=== PATIENT | female | born 1980 | race Caucasian/White ===

== ENCOUNTER → 2019-08-31 11:05 | Outpatient (BNVA) | payer MEDICAID, SELFPAY | PROVIDERS: Visit Provider Nurse Practitioner | DX: E05.90 Thyrotoxicosis, unspecified without thyrotoxic crisis or storm (principal); I10 Essential (primary) hypertension; R25.2 Cramp and spasm | CPT/HCPCS: 80053; 84443; 85007; 85027 ==

== ENCOUNTER → 2019-09-06 11:00 | Outpatient (BNVA) | payer MEDICAID, SELFPAY | PROVIDERS: Visit Provider Nurse Practitioner | DX: R74.8 Abnormal levels of other serum enzymes (principal); R73.9 Hyperglycemia, unspecified; F41.8 Other specified anxiety disorders | CPT/HCPCS: 80074; 80076; 83036; 87522 ==

== ENCOUNTER → 2019-11-25 21:42 | Outpatient (BNVA) | payer MEDICAID, SELFPAY | PROVIDERS: Visit Provider Nurse Practitioner Family | DX: E11.9 Type 2 diabetes mellitus without complications (principal); I10 Essential (primary) hypertension; J22 Unspecified acute lower respiratory infection; F41.8 Other specified anxiety disorders | CPT/HCPCS: 36416; 82962 ==

== ENCOUNTER → 2019-11-30 11:25 | Outpatient (BNVA) | payer MEDICAID, SELFPAY | PROVIDERS: Visit Provider Nurse Practitioner Family | DX: E03.9 Hypothyroidism, unspecified (principal); F41.8 Other specified anxiety disorders | CPT/HCPCS: 84443 ==

== ENCOUNTER 2020-02-25 14:42 | Inpatient (IN) | payer MEDICAID, SELFPAY ==
[2020-02-25 14:48] VITALS: BP 194/100; PULSE 99; RESP 18; TEMP 36.9; O2SAT 97; BMI 35.4
--- NOTE | 2020-02-25 15:08 | W.ED.PSYCH ---
HPI - Psych General: Chief Complaint: Psychiatric Symptoms Stated Complaint: mhe Time Seen by Provider: 02/25/20 15:08 Source: patient Mode of arrival: ambulatory Limitations: no limitations History of Present Illness: HPI Narrative: Carol is a nice 39-year-old female who comes in complaining that she feels suicidal. She does not have a plan at this time. She states she has an alcohol problem as well and she had to help with that. She states she is tried her to kill herself before. She denies any physical complaints at this time. Review of Systems Const: Denies: fever(s), chills, body aches, fatigue, malaise or diaphoresis Eyes: Denies: change in vision, blurry vision, blind spots, photophobia, eye discharge or eye redness ENMT: Denies: throat pain, odynophagia, hoarseness, swelling of lips/tongue, oral sores, ear or mastoid pain, ear discharge, change in hearing or nasal discharge Card: Denies: chest pain, palpitations, irregular heart rhythm, edema, lightheadedness, syncope, pre-syncope, dyspnea on exertion or orthopnea Resp: Denies: dyspnea, productive cough, non-productive cough, wheezing, hemoptysis or chest congestion GI: Denies: abdominal pain, nausea, vomiting, hematemesis, coffee ground emesis, heartburn, diarrhea, constipation, GI cramping, hematochezia or melena : Denies: flank pain, dysuria, urinary frequency, urinary urgency or hematuria Musc: Denies: neck pain, back pain, extremity pain, extremity swelling, joint pain, joint swelling, joint redness, joint warmth or joint stiffness Skin/Breast: Denies: rash, pruritus, erythema, skin tenderness or jaundice Neuro: Denies: headache(s), numbness in extremities, weakness in extremities, sensory changes, lack of coordination, difficulty walking, dizziness, vertigo, confusion, Slurred speech present or seizure-like activity Patricio/Lymph: Denies: easy bruising, easy bleeding, petechiae, purpura or enlarged lymph nodes All/Imm: Denies: urticaria, throat swelling, tongue swelling, facial swelling or acute wheezing PFS ED PFSH: Medical History Abdominal pain Anxiety with depression Congestive heart failure Diabetes mellitus, type II FH: breast cancer in first degree relative Hypertension Hypothyroid Vitamin D deficiency Surgical History History of Social History Smoking and tobacco status: current every day smoker Second hand smoke exposure: No Smoking risk assessment/counseling performed?: No Alcohol intake: never Desire information about alcohol rehabilitation?: No Counseling given: No Desire information about substance/drug rehabilitation?: No Counseling given: No Physical Exam Const: COMMON NORMALS: no acute distress, patient oriented x3, no limitations, healthy appearing and well nourished GENERAL APPEARANCE: cooperative, well kempt and well developed HENMT: COMMON NORMALS: normocephalic, atraumatic, external ears normal, EAC's normal and Normal external nose present HEAD & SCALP: normal to inspection, normocephalic and atraumatic FACE & SINUS: normal facial exam and face symmetric NOSE: Normal external nose present and Normal nares present EXTERNAL EAR: Yes external ears normal EXTERNAL AUDITORY CANAL: EAC's normal MOUTH: Normal oral and palatal mucosa present, lip normal and tongue normal Eye: COMMON NORMALS: Equal, round and reactive pupils present and conjunctivae normal GENERAL EYE: appearance normal, both eyes and all related structures ALIGNMENT: Yes alignment normal PERIORBITAL: periorbital findings normal EYELID: eyelids normal CONJUNCTIVA: Yes conjunctivae normal SCLERA: sclerae normal PUPIL: Yes Equal, round and reactive pupils present Neck/C-Spine: COMMON NORMALS: full ROM, no lymphadenopathy, supple, no meningeal signs and no JVD GENERAL: Yes normal visual inspection and Yes trachea midline Chest: COMMONS NORMALS: normal inspection of the chest and normal palpation of entire chest wall Resp: COMMON NORMALS: normal respiratory effort, No retractions and No use of accessory muscles EFFORT & INSPECTION: Yes able to speak in complete sentences and Yes symmetric chest movement AUSCULTATION: no crackles, no rales, no rhonchi and no wheezes Cardio: COMMON NORMALS: no JVD, regular rate, regular rhythm, S1 normal heart sound present and S2 normal heart sound present RATE: regular rate RHYTHM: regular rhythm HEART SOUNDS: S1 normal heart sound present, S2 normal heart sound present, no click, no gallops, no murmurs, no rubs and abnormal split S2 GI: COMMON NORMALS: Soft to palpation and No hepatosplenomegaly present PALPATION: Yes Soft to palpation, No Tenderness to palpation present (GI), No Guarding due to palpation present (GI), No Rigid due to palpation, Yes No hepatosplenomegaly present, No Hernia present, No Palpable mass present and No Pulsatile mass present : COMMON NORMALS: Yes no CVA tenderness BLADDER/KIDNEY EXAM: Yes no CVA tenderness EXTERNAL FEMALE EXAM: No Hernia present Back/Pelvis: COMMON NORMALS: no CVA tenderness, thoracic and lumbar spine normal to inspection, no thoracic nor lumbar tenderness and thoraco-lumbar ROM normal Extremity: COMMON NORMALS: normal to inspection, full ROM, capillary refill normal, no joint enlargement, no clubbing, cyanosis or edema and no calf tenderness Neuro: COMMON NORMALS: patient oriented x3, CN's II-XII intact bilaterally, moves all extremities, no focal motor deficits and no sensory deficits noted MENINGEAL SIGNS: Yes no meningeal signs SPEECH: speech normal Psych: COMMON NORMALS: mental status grossly normal, Normal thought process present, cooperative, normal affect, speech normal and activity/motor behavior normal APPEARANCE: Yes well kempt SPEECH: Yes normal speech THOUGHT PROCESS: Normal thought process present Skin: COMMON NORMALS: no rashes or lesions noted, turgor normal, no jaundice, no petechiae and no mottling GENERAL SKIN EXAM: no rashes or lesions noted and turgor normal MDM - Psych MDM Narrative: Medical decision making narrative: 2009 -the case is again reviewed with Dr. Yo and had previously been reviewed with him. He agrees to accept the patient to the neuropsychiatric unit. The patient's potassium was low and a repeat BMP was drawn but only a short time after she received the p.o. potassium. I believe it likely has not had a chance to work but she is receiving 20 IV milliequivalents of IV potassium and I will give her another 20 mEq p.o. before she goes to the neuropsychiatric unit. Her EKG shows no signs of long QT syndrome. I reviewed all this including the change in potassium with Dr. Yo he is agreeable to have her down in the neuropsychiatric unit and they will recheck a potassium in the morning. Patient is currently stable, she is eating and drinking with no signs of withdrawals or distress. Lab Data: Attestation: I reviewed the patient's lab results. Labs: Lab Results 02/25/20 02/25/20 02/25/20 Range/Units 15:28 15:28 15:28 WBC 6.7 (4.0-10.0) 10^3/ uL RBC 4.48 (4.1-5.3) 10^6/u L Hgb 11.2 L (11.5-15.3) g/dL Hct 37.4 (37.0-47.0) % MCV 83.5 (81-99) fL MCH 25.0 L (28.0-34.0) pg MCHC 29.9 L (30.0-36.0) g/dL RDW 19.7 H (12.1-15.1) % Plt Count 115 L (130-400) 10^3/c mm MPV 8.9 (7.4-10.4) fL Neut % (Auto) 45.7 % Lymph % (Auto) 43.5 % Stewart % (Auto) 9.6 % Eos % (Auto) 0.6 % Baso % (Auto) 0.3 % Neut # (Auto) 3.04 (1.8-7.7) 10^3/u L Lymph # (Auto) 2.9 (0.8-4.8) 10^3/u L Stewart # (Auto) 0.6 (0.2-0.9) 10^3/u L Eos # (Auto) 0.0 (0.0-0.8) 10^3/u L Baso # (Auto) 0.0 (0.0-0.1) 10^3/u L Nucleated RBC % (a uto) 0 % Nucleated RBCs # 0.0 /100WBC Sodium 139 (136-145) mmol/L Potassium 2.6 L* (3.5-5.1) mmol/L Chloride 103 (98-107) mmol/L Carbon Dioxide 18 L (22-29) mmol/L Anion Gap 20.6 H (5-19) BUN 5 L (6-20) mg/dL Creatinine 0.8 (0.5-0.9) mg/dL GFR Calculation 79.9 L (90-130) mL/min Glucose 134 H (65-115) mg/dL Calculated Osmolal ity 286 (285-295) mOsm/k g Calcium 9.0 (8.5-10.5) mg/dL Magnesium 1.9 (1.7-2.3) mg/dL Total Bilirubin 1.1 (0.15-1.2) mg/dL AST 165 H (0-32) U/L ALT 53 H (0-33) U/L Alkaline Phosphata se 156 H (35-105) IU/L Total Protein 9.2 H (6.6-8.7) g/dL Albumin 4.3 (3.5-5.2) g/dL Globulin 4.9 H (1.3-4.6) g/dL HCG, Qual (Negative) Salicylates (3-10) mg/dL Acetaminophen < 5.0 L (10-30) ug/mL Ethyl Alcohol 271 H (0-10) mg/dL 02/25/20 02/25/20 02/25/20 Range/Units 15:28 16:47 18:43 WBC (4.0-10.0) 10^3/ uL RBC (4.1-5.3) 10^6/u L Hgb (11.5-15.3) g/dL Hct (37.0-47.0) % MCV (81-99) fL MCH (28.0-34.0) pg MCHC (30.0-36.0) g/dL RDW (12.1-15.1) % Plt Count (130-400) 10^3/c mm MPV (7.4-10.4) fL Neut % (Auto) % Lymph % (Auto) % Stewart % (Auto) % Eos % (Auto) % Baso % (Auto) % Neut # (Auto) (1.8-7.7) 10^3/u L Lymph # (Auto) (0.8-4.8) 10^3/u L Stewart # (Auto) (0.2-0.9) 10^3/u L Eos # (Auto) (0.0-0.8) 10^3/u L Baso # (Auto) (0.0-0.1) 10^3/u L Nucleated RBC % (a uto) % Nucleated RBCs # /100WBC Sodium 139 (136-145) mmol/L Potassium 2.9 L (3.5-5.1) mmol/L Chloride 104 (98-107) mmol/L Carbon Dioxide 18 L (22-29) mmol/L Anion Gap 19.9 H (5-19) BUN 6 (6-20) mg/dL Creatinine 0.7 (0.5-0.9) mg/dL GFR Calculation 93.2 (90-130) mL/min Glucose 121 H (65-115) mg/dL Calculated Osmolal ity 285 (285-295) mOsm/k g Calcium 8.4 L (8.5-10.5) mg/dL Magnesium (1.7-2.3) mg/dL Total Bilirubin (0.15-1.2) mg/dL AST (0-32) U/L ALT (0-33) U/L Alkaline Phosphata se (35-105) IU/L Total Protein (6.6-8.7) g/dL Albumin (3.5-5.2) g/dL Globulin (1.3-4.6) g/dL HCG, Qual Negative (Negative) Salicylates 0.8 L (3-10) mg/dL Acetaminophen (10-30) ug/mL Ethyl Alcohol (0-10) mg/dL EKG Data^: EKG 1: Attestation: I personally reviewed and interpreted this EKG as follows: EKG interpretation date: 02/25/20 EKG interpretation time: 18:08 Interpretation: Normal sinus rhythm at 86 beats a minute, no acute ST-T wave changes. Discharge Plan Discharge Patient Disposition: Admitted As Inpatient Clinical Impression: Suicidal ideation, Anxiety with depression, Acute hypokalemia Condition: Stable Prescriptions: No Action (DME) blood-glucose meter Kit See Rx Instructions .ROUTE .MEDSUPPLY Qty: 1 RF: 5 buprenorphine-naloxone 8-2 mg film 1 film sublingual TID RF: 0 propranolol 40 mg tablet 40 mg PO BID RF: 0 Linzess 145 mcg capsule 145 mcg PO DAILY Qty: 30 RF: 0 alprazolam 0.5 mg tablet 0.5 mg PO BID PRN (Reason: anxiety) 30 Days Qty: 60 RF: 0 metformin 500 mg tablet 500 mg PO BID Qty: 60 RF: 0 levothyroxine 100 mcg capsule 100 mcg PO DAILY 30 Days Qty: 30 RF: 2 aspirin 325 mg Tablet 325 mg PO DAILY RF: 0 fluoxetine 40 mg capsule 40 mg PO DAILY RF: 0 Requip 0.25 mg tablet 0.25 mg PO DAILY RF: 0 furosemide 20 mg tablet 20 mg PO QAM RF: 0 ProAir HFA 90 mcg/actuation HFA aerosol inhaler 1 - 2 inh INHALATION Q6H PRN (Reason: Shortness Of Breath) RF: 0 Januvia 100 mg tablet 100 mg PO DAILY RF: 0 Referrals: Chaparro,MADAN, ASSOCIATE SCHOOL PSYCHOLOGIST [Primary Care Provider] - Coding Level of Care Code ED Gas Burner Operator for Lorri Chandler
[2020-02-25 15:34] LABS: Basophils % 0.3 %; Eosinophils % 0.6 %; Hematocrit 37.4 % (37.0-47.0); Hemoglobin 11.2 g/dL (11.5-15.3); Lymphocytes # 2.9 10^3/uL (0.8-4.8); Lymphocytes % 43.5 %; Mean Corpuscular HGB Conc 29.9 g/dL (30.0-36.0); Mean Corpuscular Volume 83.5 fL (81-99); Mean Platelet Volume 8.9 fL (7.4-10.4); Monocytes # 0.6 10^3/uL (0.2-0.9); Monocytes % 9.6 %; Neutrophils # 3.04 10^3/uL (1.8-7.7); Neutrophils % 45.7 %; Nucleated Red Blood Cells % 0 %; Platelet Count 115 10^3/cmm (130-400); Red Blood Count 4.48 10^6/uL (4.1-5.3); Red Cell Distribution Width 19.7 % (12.1-15.1); White Blood Count 6.7 10^3/uL (4.0-10.0)
[2020-02-25 16:05] LABS: Alanine Aminotransferase 53 U/L (0-33); Albumin Level 4.3 g/dL (3.5-5.2); Alcohol Level 271 mg/dL (0-10); Alkaline Phosphatase 156 IU/L (35-105); Anion Gap 20.6 (5-19); Aspartate Amino Transferase 165 U/L (0-32); Blood Urea Nitrogen 5 mg/dL (6-20); Carbon Dioxide 18 mmol/L (22-29); Chloride 103 mmol/L (98-107); Globulin 4.9 g/dL (1.3-4.6); Glomerular Filtration Rate 79.9 mL/min (90-130); Glucose 134 mg/dL (65-115); Osmolality Calculated 286 mOsm/kg (285-295); Sodium 139 mmol/L (136-145); Total Bilirubin 1.1 mg/dL (0.15-1.2); Total Protein 9.2 g/dL (6.6-8.7)
[2020-02-25 16:08] LABS: Acetaminophen < 5.0 ug/mL (10-30); Potassium 2.6 mmol/L (3.5-5.1)
[2020-02-25 16:52] LABS: Magnesium 1.9 mg/dL (1.7-2.3)
[2020-02-25 16:57] LABS: HCG Qualitative Urine. Negative (Negative)
[2020-02-25 17:07] LABS: Salicylate 0.8 mg/dL (3-10)
[2020-02-25] MEDS: folic acid 1 MG, multivitamin inj 10 ML, thiamine 100 MG in sodium chloride 0.9% 1,000 ML 252.8 MG IV (18:00)
[2020-02-25] MEDS: potassium chloride ER 10 mEq Tablet 40 MEQ PO (18:07)
[2020-02-25 19:15] LABS: Anion Gap 19.9 (5-19); Blood Urea Nitrogen 6 mg/dL (6-20); Calcium 8.4 mg/dL (8.5-10.5); Carbon Dioxide 18 mmol/L (22-29); Chloride 104 mmol/L (98-107); Glomerular Filtration Rate 93.2 mL/min (90-130); Glucose 121 mg/dL (65-115); Osmolality Calculated 285 mOsm/kg (285-295); Sodium 139 mmol/L (136-145)
[2020-02-25 19:23] LABS: Potassium 2.9 mmol/L (3.5-5.1)
[2020-02-25] MEDS: ondansetron 2 mg/ML SDV 2 mL 4 MG IVP (19:23)
[2020-02-25] MEDS: sodium chloride 0.9% 1,000 ML 75 ML IV (19:26)
[2020-02-25] MEDS: potassium chloride ER 10 mEq Tablet 20 MEQ PO (20:18)
[2020-02-25] MEDS: metoclopramide 5 mg/mL SDV 2 mL 10 MG IVP (20:20)
[2020-02-25 20:42] LABS: Ketone (Acetest) Serum Negative (Negative)
[2020-02-25 21:23] VITALS: BP 152/100; PULSE 88; RESP 18; TEMP 36.8; O2SAT 98
[2020-02-25 21:54] VITALS: BP 184/103; PULSE 89; RESP 16; TEMP 36.7; O2SAT 94
[2020-02-25] MEDS: trazodone 50 mg Tablet PO (23:00)
[2020-02-25] MEDS: OLANZapine 5 mg ODT PO (23:00)
--- NOTE | 2020-02-26 03:56 | PC.NURSE ---
pt given PRN trazodone and zyprexa per request.
[2020-02-26 06:00] VITALS: BP 172/69; PULSE 77; RESP 20; TEMP 36.5; O2SAT 98
[2020-02-26 06:37] LABS: Glucose Point of Care 88 mg/dL (70-110)
[2020-02-26] MEDS: FUROsemide 20 mg Tablet PO (07:09)
[2020-02-26 07:25] LABS: Blood Urea Nitrogen 8 mg/dL (6-20); Calcium 8.2 mg/dL (8.5-10.5); Carbon Dioxide 17 mmol/L (22-29); Chloride 105 mmol/L (98-107); Glomerular Filtration Rate 111.3 mL/min (90-130); Glucose 83 mg/dL (65-115); Osmolality Calculated 273 mOsm/kg (285-295); Sodium 134 mmol/L (136-145)
[2020-02-26 07:36] LABS: Anion Gap 15.6 (5-19); Potassium 3.6 mmol/L (3.5-5.1)
[2020-02-26 08:32] VITALS: PULSE 87; RESP 18; O2SAT 97
[2020-02-26] MEDS: buprenorphine-naloxone 4-1 mg Film 2 EACH SUBLINGUAL ×3 (08:58→19:46)
[2020-02-26] MEDS: levothyroxine 100 mcg Tablet PO (08:58)
[2020-02-26] MEDS: metformin 500 mg Tablet PO ×2 (08:58→18:16)
[2020-02-26] MEDS: fluoxetine 20 mg Capsule 40 MG PO (08:58)
[2020-02-26] MEDS: aspirin 325 mg Tablet PO (08:58)
[2020-02-26] MEDS: propranolol 40 mg Tablet PO ×2 (10:34→18:16)
[2020-02-26] MEDS: ropinirole 0.25 mg Tablet PO (10:34)
[2020-02-26] MEDS: sitagliptin 100 mg Tablet PO (10:34)
[2020-02-26] MEDS: nicotine 21 mg Patch 1 PATCH TRANSDERMA (12:23)
--- NOTE | 2020-02-26 12:51 | PM.NHP ---
Providers/Chief Complaint Admitting Physician: Lc Yo MD Primary Care Provider: FARHAT Rivera Chief Complaint: mhe HPI NPU History of Present Illness Gina Jay is a 39 year old female who presents today having come to the emergency room reporting that she feels suicidal, without a plan, and reporting that her alcohol use has increased, and she has not been taking some of her medication. She reports a history of suicide attempts, in the past. She was admitted to the neuropsychiatric unit for definitive treatment of those issues. Today she presents reporting that, in the past several months, she has not been taking her medications as scheduled. In October, her , and she has had multiple other deaths in the family. She is just feeling out of sorts. She reports she first started having psychiatric care when she was [age] years old and started having depression and anxiety. She reports that she was put on medications then. She reports that, for the most part, in the last twenty four years she has been on medication, more or less, except for times surrounding her pregnancies. She reports that she has been going to [facility] for a long time. She endorses cigarette, alcohol, and marijuana use, that started back around when she was 18 years old. She reports that she smokes about a pack of cigarettes a day. She has been drinking alcohol in increasing amounts and now daily, when that was never the case before. But she has marijuana recreationally. She reports that she did not use cocaine much, but has messed with methamphetamine and opiates, in the past. She has been on Suboxone, and is still on Suboxone. But she denies methamphetamine use recently. She has never been to a drug rehabilitation. She reports never having a DUI. She endorses that she is on 40 mg of Prozac and 0.5 mg bid of Xanax. She endorses depression, anxiety, feelings of hopelessness, helplessness, worthlessness, and poor sleep, but she denies current lethality. PSYCHIATRIC HISTORY: As above. She has been hospitalized about five times. SUBSTANCE ABUSE HISTORY: As above. FAMILY HISTORY: She endorses mental health issues and addiction issues on her mother?s side of the family. She reports some mental health issues on her father?s side. Her paternal half-uncle committed suicide. DEVELOPMENTAL HISTORY: The patient denies any issues with mother?s or delivery of her. The patient met all developmental milestones on time. She denies speech therapy, learning support, emotional support, or special education classes. PSYCHOSOCIAL HISTORY: She reports that her parents were together when she was born and remained together. Their only children are her and her younger sister. Her childhood was okay. She denies any emotional, physical, or sexual abuse. The highest grade she achieved was the 11th grade; she dropped out and got her GED. She endorses being a heterosexual, with her longest relationship being seventeen years, which recently ended. She has been three times, twice, and this last time. She has five children, the oldest being a 25 year old girl, and the youngest being 14 year old twin boys. She has never been in the . She has no gnosticist belief system. 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 She lives in a house with her one 14 year old son, as the twin is staying with his grandmother who is struggling with cancer. LEGAL HISTORY: She endorses being in skilled nursing two or three times for a couple of days. MEDICAL HISTORY: Denied. Meds NPU Home Medications Medication Instructions Recorded Confirmed Last Taken Type buprenorphine 8 mg-naloxone 2 mg 1 film SUBLINGUAL TID each 08/30/19 02/25/20 02/25/20 08:00 History sublingual film propranolol 40 mg tablet 40 mg PO BID 08/30/19 02/25/20 Unknown History metformin 500 mg tablet 500 mg PO BID #60 tab 11/07/19 02/25/20 02/24/20 Rx blood-glucose meter #1 each 11/25/19 02/25/20 Unknown Rx levothyroxine 100 mcg capsule 100 mcg PO DAILY 30 Days #30 cap 11/30/19 02/25/20 02/25/20 Rx alprazolam 0.5 mg tablet 0.5 mg PO BID PRN 30 Days #60 tab 01/29/20 02/25/20 02/24/20 Rx linaclotide 145 mcg capsule 145 mcg PO DAILY #30 cap 01/29/20 02/25/20 Unknown Rx Januvia 100 mg PO DAILY 02/25/20 02/25/20 02/24/20 History Requip 0.25 mg PO DAILY 02/25/20 02/25/20 02/24/20 History albuterol sulfate [ProAir HFA] 1 - 2 inh INHALATION Q6H PRN 02/25/20 02/25/20 Unknown History aspirin 325 mg PO DAILY 02/25/20 02/25/20 02/25/20 History fluoxetine 40 mg PO DAILY 02/25/20 02/25/20 02/25/20 History furosemide 20 mg PO QAM 02/25/20 02/25/20 02/25/20 History Allergies Allergy/AdvReac Type Severity Reaction Status Date / Time iodine Allergy Mild unknown Verified 02/25/20 15:39 Sulfa (Sulfonamide Allergy Mild rash Verified 02/25/20 15:39 Antibiotics) PFSH NPU PFSH: Medical History Abdominal pain Anxiety with depression Congestive heart failure Diabetes mellitus, type II FH: breast cancer in first degree relative Hypertension Hypothyroid Vitamin D deficiency Surgical History History of Social History Smoking and tobacco status: current every day smoker Second hand smoke exposure: No Smoking risk assessment/counseling performed?: No Alcohol intake: never Desire information about alcohol rehabilitation?: No Counseling given: No Desire information about substance/drug rehabilitation?: No Counseling given: No Mental Status Exam MSE Comments: This is an obese, white female, with adequate dress, grooming, and eye contact. No abnormal movements, except for psychomotor retardation. Cooperative with exam in mild distress. Speech was decreased rate and volume. Mood described as tired; affect congruent. Thought process, organized. Thought content: patient denied any suicidal or homicidal ideation, there were no delusions reported or noted, patient denied any auditory or visual hallucinations. Attention, concentration, and memory appear intact but none were formally tested. She is alert and oriented times three. Insight and judgment are good. Vitals/I&O/Wt Last Vital Signs Temp 97.7 F 02/26/20 06:00 Pulse 87 02/26/20 08:32 Resp 18 02/26/20 08:32 BP 172/69 02/26/20 06:00 Pulse Ox 97 02/26/20 08:32 Weight last 48 hrs Weight 108.862 kg Data NPU : 02/25/20 15:02/26/20 07:00 A&P Assessment and plan (1) Suicidal ideation: Status: Acute (2) Anxiety with depression: Status: Acute (3) Alcohol use disorder: Status: Acute Additional A&P Information This is a 39 year old, white female, with a long history history of depression and anxiety, and a recent history of increased alcohol consumption, who presents wanting to get assistance with her depression, anxiety, and alcohol use. Continue current medication, except: Increase Prozac to 60 mg po qam. Encourage individual, group, and milieu therapy. Continue q-15 minute checks for safety. Encourage discharge to a sober living facility at the highest level of care to which she is willing to commit. Involuntary Hold Information 96 Hour Hold: 96 Hour Involuntary Admission: No Attestations NPU Medical Necessity Statement*: Inpatient hospitalization is medically necessary and the clinically appropriate intervention, at this time. We will monitor medications and titrate to effect. Patient will be in the hospital for over two midnights. Likely length of stay is two to four days. Coding Level of Care Code Acute Pest Control Worker for Lorri Chandler Diagnoses Suicidal ideation R45.851 Anxiety with depression F41.8 Alcohol use disorder
[2020-02-26 14:00] VITALS: BP 113/68; PULSE 63; RESP 18; TEMP 36.5; O2SAT 97
[2020-02-26] MEDS: fluoxetine 20 mg Capsule PO (14:54)
[2020-02-26 17:16] LABS: Glucose Point of Care 108 mg/dL (70-110)
[2020-02-26 19:43] LABS: Glucose Point of Care 113 mg/dL (70-110)
[2020-02-26 20:13] VITALS: PULSE 63; RESP 16; O2SAT 96
[2020-02-26 20:52] VITALS: BP 118/71; PULSE 62; RESP 15; TEMP 36.8; O2SAT 97
[2020-02-26] MEDS: trazodone 50 mg Tablet PO (21:19)
[2020-02-26] MEDS: hyDROXYzine 25 mg Capsule 50 MG PO (21:19)
[2020-02-27 00:33] LABS: Amphetamines Screen Urine Negative (Negative); Barbiturates Screen Urine Negative (Negative); Benzodiazepines Screen Urine Positive (Negative); Cocaine Screen Urine Negative (Negative); Opiate Screen Urine Negative (Negative); PCP Screen Urine Negative (Negative); THC Screen Urine Positive (Negative)
[2020-02-27 01:10] LABS: Urine Color Brown (Yellow)
[2020-02-27 01:11] LABS: Add Urine Culture? Yes; Add Urine Microscopic? YES; Bacteria Urine 4+; Bilirubin Urine 1+ (NEGATIVE); Blood Urine 3+ (Negative); Glucose Urine UA Norm (Normal); Ketones Urine 1+ (Negative); Leukocyte Esterase Urine 1+ (Negative); Nitrate Urine Positive (Negative); Protein Urine 2+ (Negative); RBC Urine >100 /hpf (0-2); Specific Gravity, Urine 1.015 (1.005-1.030); Urine Appearance Cloudy (CLEAR); Urobilinogen Urine 8 mg/dL (Negative); WBC Urine >100 /hpf (0-5); pH Urine 6.5 (5-7)
[2020-02-27 06:00] VITALS: BP 147/89; PULSE 61; RESP 14; TEMP 36.7; O2SAT 96
[2020-02-27] MEDS: FUROsemide 20 mg Tablet PO (06:29)
[2020-02-27 06:58] LABS: Glucose Point of Care 87 mg/dL (70-110)
[2020-02-27] MEDS: nicotine 21 mg Patch 1 PATCH TRANSDERMA (08:08)
[2020-02-27] MEDS: metformin 500 mg Tablet PO ×2 (08:09→17:11)
[2020-02-27] MEDS: ropinirole 0.25 mg Tablet PO (08:10)
[2020-02-27] MEDS: fluoxetine 20 mg Capsule 60 MG PO (08:10)
[2020-02-27] MEDS: levothyroxine 100 mcg Tablet PO (08:10)
[2020-02-27] MEDS: propranolol 40 mg Tablet PO ×2 (08:10→17:11)
[2020-02-27] MEDS: aspirin 325 mg Tablet PO (08:10)
[2020-02-27] MEDS: sitagliptin 100 mg Tablet PO (08:10)
[2020-02-27] MEDS: buprenorphine-naloxone 4-1 mg Film 2 EACH SUBLINGUAL ×3 (08:11→21:28)
[2020-02-27 09:18] VITALS: PULSE 65; RESP 18; O2SAT 96
[2020-02-27 11:27] LABS: Glucose Point of Care 97 mg/dL (70-110)
[2020-02-27] MEDS: acetaminophen 325 mg Tablet 650 MG PO (12:26)
--- NOTE | 2020-02-27 13:00 | PC.RESP ---
SMOKING CESSATION INFORMATION SENT TO PATIENT.
[2020-02-27 14:00] VITALS: BP 110/72; PULSE 68; RESP 18; TEMP 36.8; O2SAT 96
--- NOTE | 2020-02-27 14:54 | PM.NPN ---
Subjective NPU Subjective: Interval history: Carol presents today reporting that she was having possibly a little discomfort. We discussed her lab finding in her urinalysis. We discussed possibly starting an antibiotic, discussing the risks, benefits, and alternatives, and she understood and agreed to proceed as is documented in this note. Additionally, she identified that she does have a sulfa allergy and so we discussed specifically Cipro as the medication. Additionally, she says she is doing well on her medication, doing well on the increase in the Prozac, and is feeling optimistic that things are going much better. She reported that she is open to the possibility of leaving tomorrow if she continues to feel well and is not having any withdrawal. She is looking forward to that. Mental Status Exam MSE Comments: This is an obese, white female, with adequate dress, grooming, and eye contact. No abnormal movements, except for psychomotor retardation. Cooperative with exam in no acute distress. Speech was slightly decreased rate and volume. Mood described as a little better; affect congruent. Thought process, organized. Thought content: patient denied any suicidal or homicidal ideation, there were no delusions reported or noted, patient denied any auditory or visual hallucinations. Attention, concentration, and memory appear intact but none were formally tested. She is alert and oriented times three. Insight and judgment are good. Vitals/I&O/Wt Last Vital Signs Temp 98.1 F 02/27/20 20:50 Pulse 69 02/27/20 20:50 Resp 15 02/27/20 20:50 BP 136/82 02/27/20 20:50 Pulse Ox 95 02/27/20 20:50 Data NPU : 02/25/20 15:28 02/26/20 07:00 A&P Additional A&P Information (1) Suicidal ideation: (2) Anxiety with depression: (3) Alcohol use disorder: This is a 39 year old, white female, with a long history history of depression and anxiety, and a recent history of increased alcohol consumption, who presents wanting to get assistance with her depression, anxiety, and alcohol use. Continue current medication, except: Start Cipro 500 mg po bid x 7 days Encourage individual, group, and milieu therapy. Continue q-15 minute checks for safety. Encourage discharge to a sober living facility at the highest level of care to which she is willing to commit. Involuntary Hold Information 96 Hour Hold: 96 Hour Involuntary Admission: No Attestations NPU Medical Necessity Statement*: Inpatient hospitalization is medically necessary and the clinically appropriate intervention, at this time. We will monitor medications and titrate to effect. Likely length of stay is 1-3 days. Likely d/c tomorrow. Coding Level of Care Code Acute Trolley Wire Installer for Lorri Chandler
[2020-02-27 16:34] LABS: Glucose Point of Care 107 mg/dL (70-110)
[2020-02-27 16:34] LABS: Glucose Point of Care 111 mg/dL (70-110)
[2020-02-27 20:17] LABS: Glucose Point of Care 96 mg/dL (70-110)
[2020-02-27 20:50] VITALS: BP 136/82; PULSE 69; RESP 15; TEMP 36.7; O2SAT 95
[2020-02-27] MEDS: trazodone 50 mg Tablet PO (21:28)
[2020-02-27] MEDS: OLANZapine 5 mg ODT PO (21:29)
[2020-02-27] MEDS: ciprofloxacin 500 mg Tablet PO (22:10)
--- NOTE | 2020-02-27 23:51 | PC.NURSE ---
pt given scheduled saboxone and prn vistaril and trazodone per request.
[2020-02-28 03:48] VITALS: PULSE 70; RESP 18; O2SAT 97
[2020-02-28 06:00] VITALS: BP 92/55; PULSE 57; RESP 13; TEMP 36.5; O2SAT 93
[2020-02-28] MEDS: FUROsemide 20 mg Tablet PO (06:08)
[2020-02-28 06:53] LABS: Glucose Point of Care 101 mg/dL (70-110)
[2020-02-28] MEDS: sitagliptin 100 mg Tablet PO (08:30)
[2020-02-28] MEDS: propranolol 40 mg Tablet PO (08:30)
[2020-02-28] MEDS: aspirin 325 mg Tablet PO (08:30)
[2020-02-28] MEDS: ropinirole 0.25 mg Tablet PO (08:30)
[2020-02-28] MEDS: buprenorphine-naloxone 4-1 mg Film 2 EACH SUBLINGUAL (08:30)
[2020-02-28] MEDS: levothyroxine 100 mcg Tablet PO (08:31)
[2020-02-28] MEDS: metformin 500 mg Tablet PO (08:31)
[2020-02-28] MEDS: ciprofloxacin 500 mg Tablet PO (08:31)
[2020-02-28] MEDS: fluoxetine 20 mg Capsule 60 MG PO (08:31)
--- NOTE | 2020-02-28 10:12 | PM.NDC ---
Diagnoses at Discharge Discharge Diagnosis (1) Suicidal ideation: Status: Resolved (2) Anxiety with depression: Status: Acute (3) Alcohol use disorder: Status: Acute Reason for Visit Reason for Visit: mhe Brief History: Gina Jay is a 39 year old female who presents today having come to the emergency room reporting that she feels suicidal, without a plan, and reporting that her alcohol use has increased, and she has not been taking some of her medication. She reports a history of suicide attempts, in the past. She was admitted to the neuropsychiatric unit for definitive treatment of those issues. Today she presents reporting that, in the past several months, she has not been taking her medications as scheduled. In October, her , and she has had multiple other deaths in the family. She is just feeling out of sorts. She reports she first started having psychiatric care when she was [age] years old and started having depression and anxiety. She reports that she was put on medications then. She reports that, for the most part, in the last twenty four years she has been on medication, more or less, except for times surrounding her pregnancies. She reports that she has been going to [facility] for a long time. She endorses cigarette, alcohol, and marijuana use, that started back around when she was 18 years old. She reports that she smokes about a pack of cigarettes a day. She has been drinking alcohol in increasing amounts and now daily, when that was never the case before. But she has marijuana recreationally. She reports that she did not use cocaine much, but has messed with methamphetamine and opiates, in the past. She has been on Suboxone, and is still on Suboxone. But she denies methamphetamine use recently. She has never been to a drug rehabilitation. She reports never having a DUI. She endorses that she is on 40 mg of Prozac and 0.5 mg bid of Xanax. She endorses depression, anxiety, feelings of hopelessness, helplessness, worthlessness, and poor sleep, but she denies current lethality. PSYCHIATRIC HISTORY: As above. She has been hospitalized about five times. SUBSTANCE ABUSE HISTORY: As above. FAMILY HISTORY: She endorses mental health issues and addiction issues on her mother?s side of the family. She reports some mental health issues on her father?s side. Her paternal half-uncle committed suicide. DEVELOPMENTAL HISTORY: The patient denies any issues with mother?s or delivery of her. The patient met all developmental milestones on time. She denies speech therapy, learning support, emotional support, or special education classes. PSYCHOSOCIAL HISTORY: She reports that her parents were together when she was born and remained together. Their only children are her and her younger sister. Her childhood was okay. She denies any emotional, physical, or sexual abuse. The highest grade she achieved was the 11th grade; she dropped out and got her GED. She endorses being a heterosexual, with her longest relationship being seventeen years, which recently ended. She has been three times, twice, and this last time. She has five children, the oldest being a 25 year old girl, and the youngest being 14 year old twin boys. She has never been in the . She has no hindu belief system. 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 She lives in a house with her one 14 year old son, as the twin is staying with his grandmother who is struggling with cancer. LEGAL HISTORY: She endorses being in [place] [facility] two or three times for a couple of days. MEDICAL HISTORY: Denied. Hospital Course Hospital Course Gina presented to the emergency room reporting feeling suicidal, without a plan, but with a history of a suicidal attempt and endorsing alcohol use had again become problematic. She was noted to have a positive marijuana screen along with positive benzodiazepines, with an alcohol level of 271. She was admitted to the neuropsychiatric unit for definitive treatment of those issues. Upon admission her medications were continued and her Prozac was increased, and she showed a positive response. In addition to that, she was noted to have a UTI and treatment was initiated for the UTI, and she was discharged with antibiotics for an additional period of time. During the hospitalization, the patient had routine laboratory studies which were within normal limits, except for a few outliers. Additionally, she had a general medical evaluation which was within normal limits and revealed no new acute processes. Discharge Summary At the time of discharge the patient denied all lethality, was absent psychosis, and mood and anxiety were well managed. The patient endorsed a plan to avoid all drugs of abuse and to follow-up with outpatient services, as recommended. She was evaluated and deemed to be absent credible lethality, and had achieved the maximum benefit from an inpatient hospitalization, and so she was discharged. Involuntary Hold Information 96 Hour Hold: 96 Hour Involuntary Admission: No Mental Status Exam MSE Comments: This is an obese, white female, with adequate dress, grooming, and eye contact. No abnormal movements, except for psychomotor retardation. Cooperative with exam in no acute distress. Speech was slightly decreased rate and volume. Mood described as a pretty good; affect congruent. Thought process, organized. Thought content: patient denied any suicidal or homicidal ideation, there were no delusions reported or noted, patient denied any auditory or visual hallucinations. Attention, concentration, and memory appear intact but none were formally tested. She is alert and oriented times three. Insight and judgment are good. Discharge Data Data Completed and Pending: Pending at discharge Category Date Time Status Urine Culture Sta t Lab 02/25/20 16:47 Results Labs from last 24 hours 02/28/20 02/27/20 02/27/20 06:48 20:12 16:29 POC Glucose 101 96 107 02/27/20 02/27/20 16:28 11:23 POC Glucose 111 97 Vitals: Last Vital Signs Temp 97.7 F 02/28/20 06:00 Pulse 57 L 02/28/20 06:00 Resp 13 02/28/20 06:00 BP 92/55 02/28/20 06:00 Pulse Ox 93 02/28/20 06:00 Discharge Plan Discharge Patient Disposition: Home Condition: Stable Prescriptions: New trazodone 50 mg Tablet 50 mg PO BEDTIME PRN (Reason: Sleep) 30 Days Qty: 30 RF: 1 ciprofloxacin HCl 500 mg Tablet 500 mg PO BID 6 Days Qty: 12 RF: 1 fluoxetine 20 mg Capsule 60 mg PO DAILY 30 Days Qty: 90 RF: 1 Continued buprenorphine-naloxone 8-2 mg film 1 film sublingual TID RF: 0 Linzess 145 mcg capsule 145 mcg PO DAILY Qty: 30 RF: 0 metformin 500 mg tablet 500 mg PO BID Qty: 60 RF: 0 levothyroxine 100 mcg capsule 100 mcg PO DAILY 30 Days Qty: 30 RF: 2 aspirin 325 mg Tablet 325 mg PO DAILY RF: 0 furosemide 20 mg tablet 20 mg PO QAM RF: 0 albuterol sulfate [ProAir HFA] 90 mcg/actuation HFA aerosol inhaler 1 - 2 inh INHALATION Q6H PRN (Reason: Shortness Of Breath) RF: 0 alprazolam 0.5 mg tablet 0.5 mg PO BID PRN (Reason: anxiety) 30 Days Qty: 60 RF: 0 propranolol 40 mg tablet 40 mg PO BID 30 Days Qty: 60 RF: 1 Januvia 100 mg tablet 100 mg PO DAILY 30 Days Qty: 30 RF: 0 Requip 0.25 mg tablet 0.25 mg PO DAILY 30 Days Qty: 30 RF: 0 Discontinued fluoxetine 40 mg capsule 40 mg PO DAILY RF: 0 No Action (DME) blood-glucose meter Kit See Rx Instructions .ROUTE .MEDSUPPLY Qty: 1 RF: 5 Discharge Orders: Discharge Order (Routine); Ordered 02/28/20 Ordered By: Lc Yo Referrals: [facility] [Other] (Appointment with therapist Analia Greenwood) [facility] [Outside] (Can do walk in assessment, Tuesday-Tuesday, 7:30am-2:30pm if medication services are needed.) [facility] [Outside] MADAN Mayfield, DIRECTOR OF [employer]ATIONS [Primary Care Provider] - Discharge Diet: Regular Discharge Activity: Resume usual activity Patient Instructions: Fluoxetine (By mouth), Trazodone (By mouth), Citalopram (By mouth) Discharge Date/Time: 02/28/20 13:28 Discharge Attestations NPU Time Spent in Discharge Care*: less than 30 min Specific Discharge Activities: Specific discharge activities: educating patient, discussing with case operator/social workers/dc planners, documenting/other paperwork and evaluating patient/reviewing data Time Spent in Smoking Cessation: Time spent discussing smoking cessation with patient: 3 to 10 minutes Coding Level of Care Code Acute Inventory Specialist for [facility] Fwd Diagnoses Suicidal ideation R45.851 Anxiety with depression F41.8 Alcohol use disorder
--- NOTE | 2020-02-28 10:44 | PC.NURSE ---
Patient will need Medicaid transport.
[2020-02-28 11:08] VITALS: BP 92/55; PULSE 57; RESP 13; TEMP 36.5; O2SAT 93
[2020-02-28 11:32] LABS: Glucose Point of Care 94 mg/dL (70-110)
--- NOTE | 2020-02-28 11:53 | PC.SOCIAL ---
Medicaid ride called, trip ID#[id number]. Should arrive by 2:50pm.
== END 2020-02-28 13:28 | disposition home or self-care (01) | DRG 880 ==
LOC: ER 20:12 → NP 20:18
PROVIDERS: Emergency Medicine; Family Medicine; Admitting Provider Psychiatry & Neurology Psychiatry; PCP Nurse Practitioner Family; Visit Provider Psychiatry & Neurology Psychiatry
DX: F41.8 Other specified anxiety disorders (principal); R45.851 Suicidal ideations; F10.10 Alcohol abuse, uncomplicated; Y90.8 Blood alcohol level of 240 mg/100 ml or more; Z79.82 Long term (current) use of aspirin; F17.210 Nicotine dependence, cigarettes, uncomplicated
CPT/HCPCS: 12345; 36415; 36416; 80048; 80053; 80306; 80307; 81001; 81003; 81025; 82009; 82962; 83735; 85025; 87077; 87086; 87186; 96375; 99284; J0573; J2405; J2765; J3411; J3480; J3490; J7030

== ENCOUNTER 2020-04-09 06:06 | Inpatient (IN) | payer MEDICAID, SELFPAY ==
[2020-04-09] VITALS (12 sets, daily range): BP systolic 111–127; BP diastolic 54–85; PULSE 63–91; RESP 17–24; TEMP 37–37.2; O2SAT 92–98; BMI 35.4
--- NOTE | 2020-04-09 06:42 | W.ED.AMS ---
HPI - Altered Mental Status General: Chief Complaint: Altered Mental Status Stated Complaint: Drug Use Time Seen by Provider: 04/09/20 06:08 History of Present Illness: HPI narrative: 39-year-old female presents the emergency room with complaint of hitting her head 3 days ago she states since then she has had a difficult time with random movements. She appears to be acutely under the influence of methamphetamine based on her behavior in the emergency room. She denies suicidal or homicidal ideation. There is no evidence of any trauma about the head. She does state that she took another patient's ADHD about a third she thinks it with Concerta, she states this was 2 days ago. MD complaint: altered mental status Onset (ago): day(s) Severity: moderate Consistency of symptoms: Waxing and Waning Context: drug abuse Associated symptoms: Reports racing thoughts; Deny auditory hallucinations, visual hallucinations, depression, homicidal ideation or suicidal ideation Review of Systems Const: Denies: fever(s), chills, body aches, change in appetite, fatigue or malaise ENMT: Denies: throat pain, ear or mastoid pain, nasal discharge or nasal congestion Card: Denies: chest pain, edema, dyspnea on exertion or orthopnea Resp: Denies: dyspnea, productive cough or non-productive cough GI: Denies: abdominal pain, nausea, vomiting, hematemesis, coffee ground emesis, diarrhea, constipation, bloating, hematochezia or melena : Denies: flank pain, difficulty voiding, dysuria, urinary frequency or urinary urgency Skin/Breast: Denies: rash or pruritus Psych: Denies: depression, visual hallucinations, auditory hallucinations, suicidal ideation or homicidal ideation COUNTS INCLUDE 234 BEDS AT THE [facility] ED PFSH: Medical History Abdominal pain Anxiety with depression Congestive heart failure Diabetes mellitus, type II FH: breast cancer in first degree relative Hypertension Hypothyroid Vitamin D deficiency Surgical History History of Social History Smoking and tobacco status: current every day smoker Second hand smoke exposure: No Smoking risk assessment/counseling performed?: No Alcohol intake: never Desire information about alcohol rehabilitation?: No Counseling given: No Desire information about substance/drug rehabilitation?: No Counseling given: No Physical Exam Const: COMMON NORMALS: no acute distress GENERAL APPEARANCE: comfortable ORIENTATION/CONSCIOUSNESS: Yes awake HENMT: COMMON NORMALS: normocephalic, atraumatic and hearing grossly normal bilaterally HEAD & SCALP: normocephalic and atraumatic Eye: COMMON NORMALS: Equal, round and reactive pupils present, EOMs intact bilaterally, conjunctivae normal and no scleral icterus CONJUNCTIVA: Yes conjunctivae normal PUPIL: Yes Equal, round and reactive pupils present Neck/C-Spine: COMMON NORMALS: full ROM, no lymphadenopathy, supple and no JVD Lymph: LYMPHATIC: no lymphadenopathy noted and no lymphedema noted Resp: COMMON NORMALS: normal respiratory effort, No retractions, No use of accessory muscles and clear to auscultation bilaterally AUSCULTATION: clear to auscultation bilaterally Cardio: COMMON NORMALS: no JVD, regular rate, regular rhythm and No murmurs present (Cardio) RATE: regular rate RHYTHM: regular rhythm GI: COMMON NORMALS: Soft to palpation and No hepatosplenomegaly present AUSCULTATION: Yes normoactive bowel sounds PALPATION: Yes Soft to palpation, No Tenderness to palpation present (GI), No Guarding due to palpation present (GI) and Yes No hepatosplenomegaly present Extremity: COMMON NORMALS: normal to inspection, capillary refill normal, no clubbing, cyanosis or edema, no calf tenderness and no pedal edema Neuro: OTHER: Erratic behavior choreatic movements Skin: COMMON NORMALS: no rashes or lesions noted GENERAL SKIN EXAM: no rashes or lesions noted Course Vital Signs: Vital signs: Vital Signs Temperature 97.6 F 04/11/20 06:00 Pulse Rate 71 04/11/20 06:00 Respiratory Rate 14 04/11/20 06:00 Blood Pressure 121/73 04/11/20 06:00 Pulse Oximetry 97 04/11/20 06:00 MDM - Altered Mental Status MDM Narrative: Medical decision making narrative: Acute hyperkalemia treated in the emergency room. Discussed with Dr. Albert. Patient will require monitoring in the MPU due to her substance abuse and drug-induced psychosis. She does have some abnormal liver values and hypokalemia. She was given potassium supplement in the ER and will need a follow-up potassium. Discussed with Dr. Villafana at this point she does not really have any significant right upper quadrant tenderness there is no evidence of common bile duct dilation or evidence of obstruction on her imaging. I think she can have this followed up at a different date but should be monitored while she is an inpatient inform Dr. Albert. Suspect the liver enzyme elevation is secondary to her drug use as well. Lab Data: Labs: Lab Results 04/09/20 04/09/20 04/09/20 Range/Units 06:25 06:25 06:25 WBC (4.0-10.0) 10^3/ uL RBC (4.1-5.3) 10^6/u L Hgb (11.5-15.3) g/dL Hct (37.0-47.0) % MCV (81-99) fL MCH (28.0-34.0) pg MCHC (30.0-36.0) g/dL RDW (12.1-15.1) % Plt Count (130-400) 10^3/c mm MPV (7.4-10.4) fL Neut % (Auto) % Lymph % (Auto) % Saunders % (Auto) % Eos % (Auto) % Baso % (Auto) % Neut # (Auto) (1.8-7.7) 10^3/u L Lymph # (Auto) (0.8-4.8) 10^3/u L Saunders # (Auto) (0.2-0.9) 10^3/u L Eos # (Auto) (0.0-0.8) 10^3/u L Baso # (Auto) (0.0-0.1) 10^3/u L Nucleated RBC % (a uto) % Nucleated RBCs # /100WBC Sodium (136-145) mmol/L Potassium (3.5-5.1) mmol/L Chloride (98-107) mmol/L Carbon Dioxide (22-29) mmol/L Anion Gap (5-19) BUN (6-20) mg/dL Creatinine (0.5-0.9) mg/dL GFR Calculation (90-130) mL/min Glucose (65-115) mg/dL Calculated Osmolal ity (285-295) mOsm/k g Calcium (8.5-10.5) mg/dL Total Bilirubin (0.15-1.2) mg/dL AST (0-32) U/L ALT (0-33) U/L Alkaline Phosphata se (35-105) IU/L Total Protein (6.6-8.7) g/dL Albumin (3.5-5.2) g/dL Globulin (1.3-4.6) g/dL Lipase (13-60) U/L HCG, Qual Negative (Negative) Urine Color Yellow (Yellow) Urine Appearance Hazy A (CLEAR) Urine pH 6 (5-7) Ur Specific Gravit y 1.015 (1.005-1.030) Urine Protein 1+ H (Negative) Urine Glucose (UA) Norm (Normal) Urine Ketones Negative (Negative) Urine Blood 3+ H (Negative) Urine Nitrate Positive H (Negative) Urine Bilirubin 1+ H (NEGATIVE) Urine Urobilinogen 4+ H (Negative) mg/dL Ur Leukocyte Jody ase 1+ H (Negative) Urine RBC 0-4 H (0-2) /hpf Urine WBC 10-15 H (0-5) /hpf Ur Squamous Epith Cells 25-40 H (0-5) Amorphous Sediment Not Reportable Urine Bacteria 4+ H (NONE) Salicylates (3-10) mg/dL Urine Opiates Scre en Negative (Negative) ng/mL Acetaminophen (10-30) ug/mL Ur Barbiturates Sc reen Negative (Negative) ng/mL Ur Phencyclidine S crn Negative (Negative) ng/mL Ur Amphetamines Sc reen Positive H (Negative) ng/mL U Benzodiazepines Scrn Positive H (Negative) ng/mL Urine Cocaine Scre en Negative (Negative) ng/mL U Marijuana (THC) Screen Positive H (Negative) ng/mL Ethyl Alcohol (0-10) mg/dL 04/09/20 04/09/20 04/09/20 Range/Units 06:41 06:41 06:41 WBC 11.1 H (4.0-10.0) 10^3/ uL RBC 4.00 L (4.1-5.3) 10^6/u L Hgb 10.2 L (11.5-15.3) g/dL Hct 33.4 L (37.0-47.0) % MCV 83.5 (81-99) fL MCH 25.5 L (28.0-34.0) pg MCHC 30.5 (30.0-36.0) g/dL RDW 20.5 H (12.1-15.1) % Plt Count 144 (130-400) 10^3/c mm MPV 9.6 (7.4-10.4) fL Neut % (Auto) 66.2 % Lymph % (Auto) 21.5 % Saunders % (Auto) 9.5 % Eos % (Auto) 2.5 % Baso % (Auto) 0.1 % Neut # (Auto) 7.34 (1.8-7.7) 10^3/u L Lymph # (Auto) 2.4 (0.8-4.8) 10^3/u L Saunders # (Auto) 1.1 H (0.2-0.9) 10^3/u L Eos # (Auto) 0.3 (0.0-0.8) 10^3/u L Baso # (Auto) 0.0 (0.0-0.1) 10^3/u L Nucleated RBC % (a uto) 0 % Nucleated RBCs # 0.0 /100WBC Sodium 136 (136-145) mmol/L Potassium 2.5 L* (3.5-5.1) mmol/L Chloride 100 (98-107) mmol/L Carbon Dioxide 20 L (22-29) mmol/L Anion Gap 18.5 (5-19) BUN 12 (6-20) mg/dL Creatinine 0.9 (0.5-0.9) mg/dL GFR Calculation 69.7 L (90-130) mL/min Glucose 105 (65-115) mg/dL Calculated Osmolal ity 278 L (285-295) mOsm/k g Calcium 8.6 (8.5-10.5) mg/dL Total Bilirubin 2.1 H (0.15-1.2) mg/dL AST 93 H (0-32) U/L ALT 42 H (0-33) U/L Alkaline Phosphata se 109 H (35-105) IU/L Total Protein 8.1 (6.6-8.7) g/dL Albumin 3.8 (3.5-5.2) g/dL Globulin 4.3 (1.3-4.6) g/dL Lipase 20 (13-60) U/L HCG, Qual (Negative) Urine Color (Yellow) Urine Appearance (CLEAR) Urine pH (5-7) Ur Specific Gravit y (1.005-1.030) Urine Protein (Negative) Urine Glucose (UA) (Normal) Urine Ketones (Negative) Urine Blood (Negative) Urine Nitrate (Negative) Urine Bilirubin (NEGATIVE) Urine Urobilinogen (Negative) mg/dL Ur Leukocyte Jody ase (Negative) Urine RBC (0-2) /hpf Urine WBC (0-5) /hpf Ur Squamous Epith Cells (0-5) Amorphous Sediment Urine Bacteria (NONE) Salicylates < 0.3 L (3-10) mg/dL Urine Opiates Scre en (Negative) ng/mL Acetaminophen < 5.0 L (10-30) ug/mL Ur Barbiturates Sc reen (Negative) ng/mL Ur Phencyclidine S crn (Negative) ng/mL Ur Amphetamines Sc reen (Negative) ng/mL U Benzodiazepines Scrn (Negative) ng/mL Urine Cocaine Scre en (Negative) ng/mL U Marijuana (THC) Screen (Negative) ng/mL Ethyl Alcohol < 10 (0-10) mg/dL Discharge Plan Discharge Patient Disposition: Admitted As Inpatient Admit Provider: Roosevelt Albert Clinical Impression: Drug-induced psychotic disorder, Acute hypokalemia, Cholelithiasis, Hyperbilirubinemia Condition: Stable Referrals: [facility] [Outside] - 1-3 days (Follow up for outpatient mental health treatment.) [facility] [Outside] - 1-3 days (Resource for inpatient and outpatient substance abuse treatment.) Interventions: ED Discharge Assessment Last Done: 04/09/20 15:05 ED Charges Last Done: 04/09/20 15:06 Discharge Date/Time: 04/09/20 15:49 Coding Level of Care Code ED Soda Fountain Manager for Lor[facility] Fwd Exam Comprehensive
[2020-04-09 06:43] LABS: HCG Qualitative Urine. Negative (Negative)
--- NOTE | 2020-04-09 06:50 | CT_ITS ---
WS: [id number] CT HEAD TECHNIQUE: Noncontrast CT of the head obtained from the skullbase to the vertex. CLINICAL INFORMATION: closed head injury COMPARISON: None. DLP: 1493.[address] scans at [facility] use at least one of these dose optimization techniques: automat ed exposure control; mA and/or kV adjustment per patient size (includes targeted exams where dose is matched to clinical indication); or iterative reconstruction. FINDINGS: Images moderately degraded by beam hardening artifact. No evidence of intracranial hemorrhage or mass effect. Ventricular system and basal cisterns are alanis nt.No extra-axial fluid collections. No evidence of mass or mass effect. Normal rodriguez-white differenti ation. Paranasal sinuses and mastoid air cells are well aerated. .Normal visualized soft tissues. CT/CT head wo con* [id number] IMPRESSION: 1. No evidence of intracranial hemorrhage or mass effect. 2. Rodriguez-white differentiation appears maintained. 3. No acute intracranial findings considering artifact. Attempted notification Guerrero Jenkins DO at 04/09/2020 8:21 AM.
[2020-04-09 06:55] LABS: Amphetamines Screen Urine Positive (Negative); Barbiturates Screen Urine Negative (Negative); Benzodiazepines Screen Urine Positive (Negative); Cocaine Screen Urine Negative (Negative); Opiate Screen Urine Negative (Negative); PCP Screen Urine Negative (Negative); THC Screen Urine Positive (Negative)
[2020-04-09 07:02] LABS: Basophils % 0.1 %; Eosinophils # 0.3 10^3/uL (0.0-0.8); Eosinophils % 2.5 %; Hematocrit 33.4 % (37.0-47.0); Hemoglobin 10.2 g/dL (11.5-15.3); Lymphocytes # 2.4 10^3/uL (0.8-4.8); Lymphocytes % 21.5 %; Mean Corpuscular HGB Conc 30.5 g/dL (30.0-36.0); Mean Corpuscular Hemoglobin 25.5 pg (28.0-34.0); Mean Corpuscular Volume 83.5 fL (81-99); Mean Platelet Volume 9.6 fL (7.4-10.4); Monocytes # 1.1 10^3/uL (0.2-0.9); Monocytes % 9.5 %; Neutrophils # 7.34 10^3/uL (1.8-7.7); Neutrophils % 66.2 %; Nucleated Red Blood Cells % 0 %; Platelet Count 144 10^3/cmm (130-400); Red Cell Distribution Width 20.5 % (12.1-15.1); White Blood Count 11.1 10^3/uL (4.0-10.0)
[2020-04-09 07:08] LABS: Blood Urine 3+ (Negative); Glucose Urine UA Norm (Normal); Ketones Urine Negative (Negative); Nitrate Urine Positive (Negative); Protein Urine 1+ (Negative); Specific Gravity, Urine 1.015 (1.005-1.030); Urine Appearance Hazy (CLEAR); Urine Color Yellow (Yellow); pH Urine 6 (5-7)
[2020-04-09 07:09] LABS: Add Urine Culture? No; Add Urine Microscopic? YES; Bacteria Urine 4+; Bilirubin Urine 1+ (NEGATIVE); Leukocyte Esterase Urine 1+ (Negative); RBC Urine 0-4 /hpf (0-2); Squamous Epithelial Cell Urine 25-40 (0-5); Urobilinogen Urine 4+ mg/dL (Negative)
[2020-04-09 07:13] LABS: Alanine Aminotransferase 42 U/L (0-33); Albumin Level 3.8 g/dL (3.5-5.2); Alkaline Phosphatase 109 IU/L (35-105); Anion Gap 18.5 (5-19); Aspartate Amino Transferase 93 U/L (0-32); Blood Urea Nitrogen 12 mg/dL (6-20); Calcium 8.6 mg/dL (8.5-10.5); Carbon Dioxide 20 mmol/L (22-29); Chloride 100 mmol/L (98-107); Globulin 4.3 g/dL (1.3-4.6); Glomerular Filtration Rate 69.7 mL/min (90-130); Glucose 105 mg/dL (65-115); Osmolality Calculated 278 mOsm/kg (285-295); Sodium 136 mmol/L (136-145); Total Bilirubin 2.1 mg/dL (0.15-1.2); Total Protein 8.1 g/dL (6.6-8.7)
[2020-04-09 07:17] LABS: Acetaminophen < 5.0 ug/mL (10-30); Alcohol Level < 10 mg/dL (0-10); Salicylate < 0.3 mg/dL (3-10)
[2020-04-09 07:18] LABS: Potassium 2.5 mmol/L (3.5-5.1)
--- NOTE | 2020-04-09 07:21 | US_ITS ---
WS: [id number] ULTRASOUND ABDOMEN LIMITED CLINICAL INFORMATION: hyperbilirubinemia COMPARISON: None. FINDINGS: Technically limited examination due to patient condition Liver Size: Normal. Craniocaudal length: 14.5 cm. Echogenicity: Coarse Surface nodularity: None. Mass (size and location): None. Bile ducts Intrahepatic ducts: Normal. Common bile duct diameter: 0.4 cm. Gallbladder Cholelithiasis Gallstones: Present Gallbladder sludge: None. Gallbladder wall thickening: None. Pericholecystic fluid: None. Sonographic Gandara sign: Absent. Pancreas Normal as visualized. Right kidney: Normal. Hydronephrosis: None. Size: 11.3 cm x 4.9 cm x 5.1 cm. Abdominal aorta and IVC Visualized portions are normal. Ascites: None. US/US gall bladder 31404 IMPRESSION: 1. Technically limited examination due to patient condition. 2. Diffuse fatty infiltration of the liver. 3. 12 mm calculus near the gallbladder neck. No pericholecystic fluid or gallb ladder wall thickening. 4. No hydronephrosis in right kidney.
[2020-04-09] MEDS: potassium chloride oral liq 20 mEq/15 mL UDC 60 MEQ PO (07:33)
[2020-04-09] MEDS: LORazepam 2 mg/mL INJ 1 mL 1 MG IVP (07:58)
--- NOTE | 2020-04-09 08:41 | PC.NURSE ---
Pt is unable to lay still or calm in bed. Arms and legs waving around, mumbling and hitting self. Informed ER physician.
[2020-04-09] MEDS: LORazepam 2 mg/mL INJ 1 mL 1 MG IM (08:53)
--- NOTE | 2020-04-09 08:54 | PC.NURSE ---
Addendum entered by Santi Campos RN 04/09/20 08:58: Unable to take blood pressure due to constant moving. Heart rate and pulse ox all within normal range. Original Note: Received verbal from Dr Jenkins for Ativan 1 mg IM. Pt flips and flops in the bed. Moans and groans. Responds appropriately when asked questions. Dr Jenkins is fully aware of pts condition.
[2020-04-09] MEDS: LORazepam 2 mg/mL INJ 1 mL IM (09:41)
--- NOTE | 2020-04-09 10:26 | PC.NURSE ---
pt continues ti flip and flop in the bed. Sz pads on bed railing for extremity protection. Dr Jenkins fully aware of pt condition.
--- NOTE | 2020-04-09 11:16 | PC.NURSE ---
Pt is now laying on back , calm, eyes closed , respiration even and unlabored. No active movement.
[2020-04-09 12:04] LABS: Lipase 20 U/L (13-60)
--- NOTE | 2020-04-09 12:16 | PC.NURSE ---
Resting with lights. laying on stomach, no active moving, respiration even and unlabored. Dr Jenkins at bedside.
--- NOTE | 2020-04-09 13:20 | PC.NURSE ---
Resting with lights off. Occasional flipping and flopping in bed, but not as bad or intense compared to this morning Dr Jenkins aware
--- NOTE | 2020-04-09 14:06 | PC.NURSE ---
Resting with lights off, respiration even and unlabored. Not any uncontrolled movement, as of right now. Dr Jenkins notified. Continue to monitor. Did not wake up pt for Blood Pressure. When pt is woke up , she starts with the flipping and flopping in the bed.
--- NOTE | 2020-04-09 14:13 | DCPLANNER ---
manager transport was asked to schedule a follow up appointment for patient with [facility]. manager transport called the [facility], spoke with [employer], gave clinic patient information. manager transport was told that patients information would be printed and reviewed. Clinic will call patient with the appointment information.
--- NOTE | 2020-04-09 17:05 | P.HP_ITS ---
Providers/Chief Complaint Admitting Physician: Roosevelt Albert Primary Care Provider: FARHAT Rivera [place] [facility] [place] Complaint: SI HPI NPU History of Present Illness Gina Jay is a 39 year old female presents the emergency room with complaint of hitting her head 3 days ago. Since then she has had a difficult time with random movements. She appears to be acutely under the influence of methamphetamine based on her behavior in the emergency room. She denies suicidal or homicidal ideation. There is no evidence of any trauma about the head. She does state that she took another patient's ADHD about a third she thinks it with Concerta, she states this was 2 days ago. The chances are that she is heavy consumption of methamphetamine in that she has pronounced choreoathetoid movements that look very similar to tardive dyskinesia derivative of old-line antipsychotics. She is coming off the drug now she can hardly stay awake. Review of Systems 2 Narrative: Const: Denies: fever(s), chills, body aches, change in appetite, fatigue or malaise ENMT: Denies: throat pain, ear or mastoid pain, nasal discharge or nasal congestion Card: Denies: chest pain, edema, dyspnea on exertion or orthopnea Resp: Denies: dyspnea, productive cough or non-productive cough GI: Denies: abdominal pain, nausea, vomiting, hematemesis, coffee ground emesis, diarrhea, constipation, bloating, hematochezia or melena : REPORTS: dysuria, urinary frequency or urinary urgency Skin/Breast: Denies: rash or pruritus Psych: Denies: depression, visual hallucinations, auditory hallucinations, suicidal ideation or homicidal ideation Meds NPU Home Medications Medication Instructions Recorded Confirmed Last Taken Type buprenorphine 8 mg-naloxone 2 mg 1 film SUBLINGUAL TID each 08/30/19 04/09/20 02/25/20 08:00 History sublingual film blood-glucose meter #1 each 11/25/19 04/09/20 Unknown Rx albuterol sulfate [ProAir HFA] 1 - 2 inh INHALATION Q6H PRN 02/25/20 04/09/20 Unknown History aspirin 325 mg PO DAILY 02/25/20 04/09/20 02/25/20 History Januvia 100 mg PO DAILY 30 Days #30 tab 02/28/20 04/09/20 Unknown Rx fluoxetine 60 mg PO DAILY 30 Days #90 cap 02/28/20 04/09/20 Unknown Rx propranolol 40 mg PO BID 30 Days #60 tab 02/28/20 04/09/20 Unknown Rx ropinirole [Requip] 0.25 mg PO DAILY 30 Days #30 tab 02/28/20 04/09/20 Unknown Rx furosemide 20 mg tablet 20 mg PO QAM #30 tab 03/26/20 04/09/20 Unknown Rx Flonase Allergy Relief 2 spray INTRANASAL DAILY 04/09/20 04/09/20 Unknown History levothyroxine 100 mcg PO DAILY 04/09/20 04/09/20 Unknown History metformin 500 mg PO BID 04/09/20 04/09/20 Unknown History divalproex 250 mg PO BID 30 Days #60 tab 04/12/20 Unknown Rx potassium chloride 10 meq PO DAILY 30 Days #30 tab 04/12/20 Unknown Rx trazodone 50 mg PO BEDTIME PRN 30 Days #30 04/12/20 04/09/20 Unknown Rx tab Allergies Allergy/AdvReac Type Severity Reaction Status Date / Time iodine Allergy Mild unknown Verified 02/25/20 15:39 Sulfa (Sulfonamide Allergy Mild rash Verified 02/25/20 15:39 Antibiotics) PFSH NPU PFSH: Medical History Abdominal pain Anxiety with depression Congestive heart failure Diabetes mellitus, type II FH: breast cancer in first degree relative Hypertension Hypothyroid Vitamin D deficiency Surgical History History of Social History Smoking and tobacco status: current every day smoker Second hand smoke exposure: No Smoking risk assessment/counseling performed?: No Alcohol intake: never Desire information about alcohol rehabilitation?: No Counseling given: No Desire information about substance/drug rehabilitation?: No Counseling given: No Mental Status Exam MSE Comments: This is an obese, white female, with poor grooming and eye contact. There are now pronounced abnormal movements. Cooperative with exam but was hardly able to stay awake. Speech was slightly decreased rate and volume; also dysarthric. Mood described as (unintelligible); affect numb. Thought process almost impossible to determine due to her slurred speech. Thought content: patient denied any suicidal or homicidal ideation, there were no delusions reported or noted, patient denied any auditory or visual hallucinations. Attention, concentration, and memory are significantly impaired. She is unable to stay awake. Insight and judgment are nil. Vitals/I&O/Wt Last Vital Signs Temp 99.0 F 04/09/20 15:53 Pulse 77 04/09/20 15:53 Resp 18 04/09/20 15:53 BP 111/68 04/09/20 15:53 Pulse Ox 92 04/09/20 15:53 Weight last 48 hrs Weight 240 lb Physical Exam Narrative: EXAM NARRATIVE: Const: no acute distress GENERAL APPEARANCE: cooperative and comfortable ORIENTATION/CONSCIOUSNESS: awake, oriented to person, oriented to place and oriented to time HENMT: normocephalic, atraumatic and hearing grossly normal bilaterally Eye: Equal, round and reactive pupils present, EOMs intact bilaterally, conjunctivae normal and no scleral icterus CONJUNCTIVA: conjunctivae normal PUPIL: Equal, round and reactive pupils present Neck/C-Spine: full ROM, no lymphadenopathy, supple and no JVD Lymph: LYMPHATIC: no lymphadenopathy noted and no lymphedema noted Resp: normal respiratory effort, No retractions, No use of accessory muscles and clear to auscultation bilaterally Cardio: no JVD, regular rate, regular rhythm and No murmurs present (Cardio) RATE: regular rate RHYTHM: regular rhythm GI: AUSCULTATION: normoactive bowel sounds PALPATION: Soft to palpation, No Tenderness to palpation present (GI), No Guarding due to palpation present (GI) and No hepatosplenomegaly present Extremity: normal to inspection, capillary refill normal, no clubbing, cyanosis or edema, no calf tenderness and no pedal edema Neuro: SENSORIUM/ORIENTATION: oriented to person, oriented to place and oriented to time Skin: no rashes or lesions noted Data NPU : 04/10/20 07:35 04/12/20 08:21 A&P Assessment and plan (1) Acute hypokalemia: Status: Acute (2) Alcohol use disorder: Status: Acute (3) 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
[2020-04-09] MEDS: divalproex DR 250 mg Tablet PO (18:17)
[2020-04-09] MEDS: nitrofurantoin SR (BID) 100 mg Capsule PO (18:18)
[2020-04-09] MEDS: nicotine 2 mg Gum BUCCAL (19:19)
[2020-04-09] MEDS: benztropine 1 mg Tablet PO (20:58)
[2020-04-09] MEDS: hyDROXYzine 25 mg Capsule 50 MG PO (20:58)
[2020-04-09] MEDS: trazodone 50 mg Tablet PO (21:05)
[2020-04-10 05:47] VITALS: BP 100/58; PULSE 81; RESP 16; TEMP 36.8; O2SAT 92
[2020-04-10 06:59] LABS: Glucose Point of Care 190 mg/dL (70-110)
[2020-04-10 07:45] LABS: Basophils % 0.3 %; Eosinophils # 0.3 10^3/uL (0.0-0.8); Eosinophils % 4.1 %; Hemoglobin 9.7 g/dL (11.5-15.3); Lymphocytes # 2.4 10^3/uL (0.8-4.8); Lymphocytes % 33.1 %; Mean Corpuscular HGB Conc 30.3 g/dL (30.0-36.0); Mean Corpuscular Hemoglobin 25.2 pg (28.0-34.0); Mean Corpuscular Volume 83.1 fL (81-99); Monocytes # 0.8 10^3/uL (0.2-0.9); Monocytes % 11.7 %; Neutrophils % 50.5 %; Nucleated Red Blood Cells % 0 %; Platelet Count 133 10^3/cmm (130-400); Red Blood Count 3.85 10^6/uL (4.1-5.3); White Blood Count 7.1 10^3/uL (4.0-10.0)
[2020-04-10 08:15] LABS: Alanine Aminotransferase 38 U/L (0-33); Albumin Level 3.8 g/dL (3.5-5.2); Alkaline Phosphatase 103 IU/L (35-105); Anion Gap 14.6 (5-19); Aspartate Amino Transferase 66 U/L (0-32); Blood Urea Nitrogen 11 mg/dL (6-20); Calcium 8.6 mg/dL (8.5-10.5); Carbon Dioxide 23 mmol/L (22-29); Chloride 101 mmol/L (98-107); Globulin 4.2 g/dL (1.3-4.6); Glomerular Filtration Rate 111.3 mL/min (90-130); Glucose 119 mg/dL (65-115); Osmolality Calculated 279 mOsm/kg (285-295); Sodium 136 mmol/L (136-145); Total Bilirubin 1.4 mg/dL (0.15-1.2)
[2020-04-10 08:28] LABS: Potassium 2.6 mmol/L (3.5-5.1)
[2020-04-10] MEDS: fluoxetine 20 mg Capsule 60 MG PO (08:50)
[2020-04-10] MEDS: potassium chloride ER 10 mEq Tablet PO (08:51)
[2020-04-10] MEDS: FUROsemide 20 mg Tablet PO (08:51)
[2020-04-10] MEDS: nitrofurantoin SR (BID) 100 mg Capsule PO ×2 (08:51→17:10)
[2020-04-10] MEDS: levothyroxine 100 mcg Tablet PO (08:51)
[2020-04-10] MEDS: metformin 500 mg Tablet PO ×2 (08:51→17:10)
[2020-04-10] MEDS: divalproex DR 250 mg Tablet PO ×2 (08:51→17:10)
[2020-04-10] MEDS: ropinirole 0.25 mg Tablet PO (08:51)
[2020-04-10] MEDS: propranolol 40 mg Tablet PO ×2 (08:53→17:10)
[2020-04-10] MEDS: sitagliptin 100 mg Tablet PO (08:53)
[2020-04-10] MEDS: buprenorphine-naloxone 4-1 mg Film 2 EACH SUBLINGUAL ×2 (08:54→17:09)
--- NOTE | 2020-04-10 09:06 | PC.NURSE ---
Critical K+ Patient's potassium level 2.6. Dr. Yo called and notified, ordered 20meq PO KCL now and then will re-address after.
[2020-04-10] MEDS: potassium chloride ER 10 mEq Tablet 20 MEQ PO (09:28)
--- NOTE | 2020-04-10 13:23 | P.HP_ITS ---
Providers/Chief Complaint Admitting Physician: Roosevelt Albert Primary Care Provider: FARHAT Rivera Chief Complaint: SI HPI NPU History of Present Illness Gina Jay is a 39 year old female Per her last inpatient psychiatric visit at [facility] NPU Home Medications Medication Instructions Recorded Confirmed Last Taken Type buprenorphine 8 mg-naloxone 2 mg 1 film SUBLINGUAL TID each 08/30/19 04/09/20 02/25/20 08:00 History sublingual film blood-glucose meter #1 each 11/25/19 04/09/20 Unknown Rx albuterol sulfate [ProAir HFA] 1 - 2 inh INHALATION Q6H PRN 02/25/20 04/09/20 Unknown History aspirin 325 mg PO DAILY 02/25/20 04/09/20 02/25/20 History Januvia 100 mg PO DAILY 30 Days #30 tab 02/28/20 04/09/20 Unknown Rx alprazolam 0.5 mg PO BID PRN 30 Days #60 tab 02/28/20 04/09/20 Unknown Rx fluoxetine 60 mg PO DAILY 30 Days #90 cap 02/28/20 04/09/20 Unknown Rx propranolol 40 mg PO BID 30 Days #60 tab 02/28/20 04/09/20 Unknown Rx ropinirole [Requip] 0.25 mg PO DAILY 30 Days #30 tab 02/28/20 04/09/20 Unknown Rx trazodone 50 mg PO BEDTIME PRN 30 Days #30 02/28/20 04/09/20 Unknown Rx tab furosemide 20 mg tablet 20 mg PO QAM #30 tab 03/26/20 04/09/20 Unknown Rx fluticasone propionate [Flonase 2 spray INTRANASAL DAILY 04/09/20 04/09/20 Unknown History Allergy Relief] levothyroxine 100 mcg PO DAILY 04/09/20 04/09/20 Unknown History metformin 500 mg PO BID 04/09/20 04/09/20 Unknown History Allergies Allergy/AdvReac Type Severity Reaction Status Date / Time iodine Allergy Mild unknown Verified 02/25/20 15:39 Sulfa (Sulfonamide Allergy Mild rash Verified 02/25/20 15:39 Antibiotics) PFSH NPU PFSH: Medical History Abdominal pain Anxiety with depression Congestive heart failure Diabetes mellitus, type II FH: breast cancer in first degree relative Hypertension Hypothyroid Vitamin D deficiency Surgical History History of Social History Smoking and tobacco status: current every day smoker Second hand smoke exposure: No Smoking risk assessment/counseling performed?: No Alcohol intake: never Desire information about alcohol rehabilitation?: No Counseling given: No Desire information about substance/drug rehabilitation?: No Counseling given: No Vitals/I&O/Wt Last Vital Signs Temp 98.2 F 04/10/20 05:47 Pulse 81 04/10/20 05:47 Resp 16 04/10/20 05:47 BP 100/58 04/10/20 05:47 Pulse Ox 92 04/10/20 05:47 Weight last 48 hrs Weight 108.862 kg Data NPU : 04/10/20 07:35 04/10/20 07:35 Involuntary Hold Information 96 Hour Hold: 96 Hour Involuntary Admission: No Coding Level of Care Code Acute Science Tutor for Lorri Chandler
--- NOTE | 2020-04-10 13:25 | PM.NPN ---
Subjective NPU Subjective: Interval history: Gina Jay is a 39 year old female who presented today reporting that she was admitted because she needed some better bipolar medications. She was somewhat resistant to identifying that her drug use has had a significant impact on her presentation. She reports that she had been having overwhelming mood swings that were rapid and out of control. We discussed the fact that her drug screen was positive and she did acknowledge having taken some ADHD medications. Her UDS was positive for marijuana, amphetamines and benzodiazepines. She had mentioned possibly having Concerta which would not have tripped the amphetamine group. She has struggled with methamphetamine in the past. She and Dr. Albert restarted her Prozac and added Depakote which she reports she is tolerating at this point. She reports she is feeling a little better. Per her last inpatient psychiatric visit at [facility] [place] 02/26/2020: History of Present Illness Gina Jay is a 39 year old female who presents today having come to the emergency room reporting that she feels suicidal, without a plan, and reporting that her alcohol use has increased, and she has not been taking some of her medication. She reports a history of suicide attempts, in the past. She was admitted to the neuropsychiatric unit for definitive treatment of those issues. Today she presents reporting that, in the past several months, she has not been taking her medications as scheduled. In October, her , and she has had multiple other deaths in the family. She is just feeling out of sorts. She reports she first started having psychiatric care when she was [age] years old and started having depression and anxiety. She reports that she was put on medications then. She reports that, for the most part, in the last twenty four years she has been on medication, more or less, except for times surrounding her pregnancies. She reports that she has been going to [facility] for a long time. She endorses cigarette, alcohol, and marijuana use, that started back around when she was 18 years old. She reports that she smokes about a pack of cigarettes a day. She has been drinking alcohol in increasing amounts and now daily, when that was never the case before. But she has marijuana recreationally. She reports that she did not use cocaine much, but has messed with methamphetamine and opiates, in the past. She has been on Suboxone, and is still on Suboxone. But she denies methamphetamine use recently. She has never been to a drug rehabilitation. She reports never having a DUI. She endorses that she is on 40 mg of Prozac and 0.5 mg bid of Xanax. She endorses depression, anxiety, feelings of hopelessness, helplessness, worthlessness, and poor sleep, but she denies current lethality. PSYCHIATRIC HISTORY: As above. She has been hospitalized about five times. SUBSTANCE ABUSE HISTORY: As above. FAMILY HISTORY: She endorses mental health issues and addiction issues on her mother?s side of the family. She reports some mental health issues on her father?s side. Her paternal half-uncle committed suicide. DEVELOPMENTAL HISTORY: The patient denies any issues with mother?s or delivery of her. The patient met all developmental milestones on time. She denies speech therapy, learning support, emotional support, or special education classes. PSYCHOSOCIAL HISTORY: She reports that her parents were together when she was born and remained together. Their only children are her and her younger sister. Her childhood was okay. She denies any emotional, physical, or sexual abuse. The highest grade she achieved was the 11th grade; she dropped out and got her GED. She endorses being a heterosexual, with her longest relationship being seventeen years, which recently ended. She has been three times, twice, and this last time. She has five children, the oldest being a 25 year old girl, and the youngest being 14 year old twin boys. She has never been in the . She has no adventist belief system. 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 She lives in a house with her one 14 year old son, as the twin is staying with his grandmother who is struggling with cancer. LEGAL HISTORY: She endorses being in senior living two or three times for a couple of days. MEDICAL HISTORY: Denied. Mental Status Exam MSE Comments: This is an obese, white female, with hospital scrubs on unkempt with limited grooming, and eye contact. No abnormal movements, except for psychomotor retardation. Cooperative with exam in mild distress. Speech was decreased rate and volume. Mood described as better; affect confused. Thought process, linear. Thought content: patient denied any suicidal or homicidal ideation, there were no delusions reported or noted, patient denied any auditory or visual hallucinations. Attention, concentration appear intact, and memory appears limited but none were formally tested. She is alert and oriented times three. Insight and judgment are impaired. Impulse control is limited. 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 Continue current medication. Encourage individual, group, and milieu therapy. Continue q-15 minute checks for safety. Encourage discharge to a sober living facility at the highest level of care to which she is willing to commit. Involuntary Hold Information 96 Hour Hold: 96 Hour Involuntary Admission: No Attestations NPU Medical Necessity Statement*: Inpatient hospitalization is medically necessary and the clinically appropriate intervention, at this time. We will monitor medications and titrate to effect. Likely length of stay is 3-5 days. 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
--- NOTE | 2020-04-10 13:34 | PC.RESP ---
Smoking Cessation information and a schedule of classes sent to patient.
[2020-04-10 14:00] VITALS: BP 100/61; PULSE 73; RESP 18; TEMP 36.8; O2SAT 94
[2020-04-10 15:18] LABS: Glucose Point of Care 146 mg/dL (70-110)
[2020-04-10 22:00] VITALS: BP 104/63; PULSE 73; RESP 16; TEMP 36.7; O2SAT 90
[2020-04-10] MEDS: acetaminophen 325 mg Tablet 650 MG PO (22:58)
[2020-04-10] MEDS: hyDROXYzine 25 mg Capsule 50 MG PO (22:59)
[2020-04-10] MEDS: trazodone 50 mg Tablet PO (22:59)
--- NOTE | 2020-04-10 22:59 | PC.NURSE ---
PRN given Trazodone 50mg po to help patient rest Prn given tylenol 650mg po to reduce pain rated at a 7 on 1-10 scale generalized prn given visteril 50mg po given to reduce anxiety Patient is digging at her arms and visibly upset. Will continue to monitor progress
[2020-04-11] MEDS: OLANZapine 5 mg ODT PO (02:08)
--- NOTE | 2020-04-11 02:08 | PC.NURSE ---
Prn given zyprexa zydis 5mg po for anxiety. She reports improvement with the dose of visteril 50mg PO but is still somewhat anxious. will continue to monitor
[2020-04-11] MEDS: FUROsemide 20 mg Tablet PO (05:33)
[2020-04-11 06:00] VITALS: BP 121/73; PULSE 71; RESP 14; TEMP 36.4; O2SAT 97
[2020-04-11 06:59] LABS: Glucose Point of Care 140 mg/dL (70-110)
--- NOTE | 2020-04-11 07:50 | DCPLANNER ---
Patient has a follow up appointment scheduled for Tuesday, April 25, [address] at 9:[address] Garcia. Clinic will call patient with appointment information.
[2020-04-11] MEDS: fluoxetine 20 mg Capsule 60 MG PO (08:46)
[2020-04-11] MEDS: sitagliptin 100 mg Tablet PO (08:46)
[2020-04-11] MEDS: buprenorphine-naloxone 4-1 mg Film 2 EACH SUBLINGUAL ×2 (08:46→16:54)
[2020-04-11] MEDS: metformin 500 mg Tablet PO ×2 (08:46→16:54)
[2020-04-11] MEDS: divalproex DR 250 mg Tablet PO ×2 (08:46→16:54)
[2020-04-11] MEDS: levothyroxine 100 mcg Tablet PO (08:47)
[2020-04-11] MEDS: nitrofurantoin SR (BID) 100 mg Capsule PO ×2 (08:47→16:55)
[2020-04-11] MEDS: potassium chloride ER 10 mEq Tablet PO (08:47)
[2020-04-11] MEDS: propranolol 40 mg Tablet PO ×2 (08:47→16:55)
[2020-04-11] MEDS: ropinirole 0.25 mg Tablet PO (09:10)
--- NOTE | 2020-04-11 09:12 | PC.NURSE ---
REFUSED SCHEDULED NASAL SPRAY
[2020-04-11 13:12] VITALS: BP 109/66; PULSE 72; RESP 20; TEMP 36.8; O2SAT 98
--- NOTE | 2020-04-11 13:41 | P.PN_ITS ---
Subjective NPU Subjective: Interval history: Gina presents today reporting that she is feeling a little better, and wanting to start talking about discharge. We had a long discussion about sober living and addiction treatment, and she continues to downplay the role that addiction has played in her admissions recently. We discussed the risks, benefits, and alternatives of going to either an inpatient or outpatient drug rehabilitation, and she understood and declined going in that direction. We discussed a plan for discharge in the morning. Mental Status Exam MSE Comments: This is an obese, white female, with hospital scrubs on unkempt with limited grooming, and eye contact. No abnormal movements, except for psychomotor retardation. Cooperative with exam in mild distress. Speech was decreased rate and volume. Mood described as better; affect slightly improved. Thought process, more organized. Thought content: patient denied any suicidal or homicidal ideation, there were no delusions reported or noted, patient denied any auditory or visual hallucinations. Attention, concentration appear intact, and memory appears limited but none were formally tested. She is alert and oriented times three. Insight and judgment are limited but improving. Impulse control is limited. Vitals/I&O/Wt Last Vital Signs Temp 98.3 F 04/11/20 22:00 Pulse 64 04/11/20 22:00 Resp 16 04/11/20 22:00 BP 121/73 04/11/20 22:00 Pulse Ox 95 04/11/20 22:00 Data NPU : 04/10/20 07:35 04/10/20 07:35 A&P Additional A&P Information This is a 39 year old, white female, with a long history history of active addiction, depression and anxiety, who presents wanting to get assistance with her depression, anxiety, and addiction. Continue current medication. Encourage individual, group, and milieu therapy. Continue q-15 minute checks for safety. Encourage discharge to a sober living facility at the highest level of care to which she is willing to commit. Involuntary Hold Information 96 Hour Hold: 96 Hour Involuntary Admission: No Attestations NPU Medical Necessity Statement*: Inpatient hospitalization is medically necessary and the clinically appropriate intervention, at this time. We will monitor medications and titrate to effect. Likely length of stay is 2-4 days. Coding Level of Care Code Acute Mission Support Specialist for Lorri Chandler
[2020-04-11] MEDS: hyDROXYzine 25 mg Capsule 50 MG PO (21:33)
[2020-04-11] MEDS: trazodone 50 mg Tablet PO (21:33)
--- NOTE | 2020-04-11 21:33 | PC.NURSE ---
PRN TRAZODONE & VISTARIL PT REQUESTING SLEEP AID AND ANXIETY MEDICATION. ADMINISTERED VISTARIL 50 MG & TRAZODONE 50 MG. WILL MONITOR FOR MEDICATION EFFECTIVENESS.
[2020-04-11 22:00] VITALS: BP 121/73; PULSE 64; RESP 16; TEMP 36.8; O2SAT 95
[2020-04-12 06:00] VITALS: BP 113/65; PULSE 61; RESP 16; TEMP 36.5; O2SAT 94
[2020-04-12 06:54] LABS: Glucose Point of Care 111 mg/dL (70-110)
--- NOTE | 2020-04-12 07:00 | PC.NURSE ---
LASIX PER DR. RAMSEY HOLD LASIX UNTIL POTASSIUM LEVEL HAS BEEN DRAWN.
[2020-04-12] MEDS: ropinirole 0.25 mg Tablet PO (08:01)
[2020-04-12] MEDS: buprenorphine-naloxone 4-1 mg Film 2 EACH SUBLINGUAL (08:01)
[2020-04-12] MEDS: nitrofurantoin SR (BID) 100 mg Capsule PO (08:01)
[2020-04-12] MEDS: metformin 500 mg Tablet PO (08:01)
[2020-04-12] MEDS: levothyroxine 100 mcg Tablet PO (08:01)
[2020-04-12] MEDS: fluoxetine 20 mg Capsule 60 MG PO (08:02)
[2020-04-12] MEDS: sitagliptin 100 mg Tablet PO (08:02)
[2020-04-12] MEDS: divalproex DR 250 mg Tablet PO (08:02)
[2020-04-12] MEDS: potassium chloride ER 10 mEq Tablet PO (08:02)
[2020-04-12] MEDS: propranolol 40 mg Tablet PO (08:02)
--- NOTE | 2020-04-12 08:15 | P.DS_ITS ---
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 Since then she has had a difficult time with random movements. She appears to be acutely under the influence of methamphetamine based on her behavior in the emergency room. She denies suicidal or homicidal ideation. There is no evidence of any trauma about the head. She does state that she took another patient's ADHD about a third she thinks it with Concerta, she states this was 2 days ago. The chances are that she is heavy consumption of methamphetamine in that she has pronounced choreoathetoid movements that look very similar to tardive dyskinesia derivative of old-line antipsychotics. She is coming off the drug now she can hardly stay awake. Review of Systems Narrative: Const: Denies: fever(s), chills, body aches, change in appetite, fatigue or malaise ENMT: Denies: throat pain, ear or mastoid pain, nasal discharge or nasal congestion Card: Denies: chest pain, edema, dyspnea on exertion or orthopnea Resp: Denies: dyspnea, productive cough or non-productive cough GI: Denies: abdominal pain, nausea, vomiting, hematemesis, coffee ground emesis, diarrhea, constipation, bloating, hematochezia or melena : REPORTS: dysuria, urinary frequency or urinary urgency Skin/Breast: Denies: rash or pruritus Psych: Denies: depression, visual hallucinations, auditory hallucinations, suicidal ideation or homicidal ideation Meds NPU Home Medications Medication Instructions Recorded Confirmed Last Taken Type buprenorphine 8 mg-naloxone 2 mg 1 film SUBLINGUAL TID each 08/30/19 04/09/20 02/25/20 08:00 History sublingual film blood-glucose meter #1 each 11/25/19 04/09/20 Unknown Rx albuterol sulfate [ProAir HFA] 1 - 2 inh INHALATION Q6H PRN 02/25/20 04/09/20 Unknown History aspirin 325 mg PO DAILY 02/25/20 04/09/20 02/25/20 History Januvia 100 mg PO DAILY 30 Days #30 tab 02/28/20 04/09/20 Unknown Rx alprazolam 0.5 mg PO BID PRN 30 Days #60 tab 02/28/20 04/09/20 Unknown Rx fluoxetine 60 mg PO DAILY 30 Days #90 cap 02/28/20 04/09/20 Unknown Rx propranolol 40 mg PO BID 30 Days #60 tab 02/28/20 04/09/20 Unknown Rx ropinirole [Requip] 0.25 mg PO DAILY 30 Days #30 tab 02/28/20 04/09/20 Unknown Rx trazodone 50 mg PO BEDTIME PRN 30 Days #30 02/28/20 04/09/20 Unknown Rx tab furosemide 20 mg tablet 20 mg PO QAM #30 tab 03/26/20 04/09/20 Unknown Rx fluticasone propionate [Flonase 2 spray INTRANASAL DAILY 04/09/20 04/09/20 Unknown History Allergy Relief] levothyroxine 100 mcg PO DAILY 04/09/20 04/09/20 Unknown History metformin 500 mg PO BID 04/09/20 04/09/20 Unknown History Allergies Allergy/AdvReac Type Severity Reaction Status Date / Time iodine Allergy Mild unknown Verified 02/25/20 15:39 Sulfa (Sulfonamide Allergy Mild rash Verified 02/25/20 15:39 Antibiotics) PFSH NPU PFSH: Medical History Abdominal pain Anxiety with depression Congestive heart failure Diabetes mellitus, type II FH: breast cancer in first degree relative Hypertension Hypothyroid Vitamin D deficiency Surgical History History of Social History Smoking and tobacco status: current every day smoker Second hand smoke exposure: No Smoking risk assessment/counseling performed?: No Alcohol intake: never Desire information about alcohol rehabilitation?: No Counseling given: No Desire information about substance/drug rehabilitation?: No Counseling given: No Hospital Course Hospital Course The patient presented to the emergency room with methamphetamine use, reporting head trauma, and endorsing a recent intake of substances, with altered mental status. She was admitted to the neuropsychiatric unit for definitive treatment of those issues. She was restarted on her home medications, except for the Ativan. Her potassium was low and she was noted to have a UTI, so potassium replacement was started and an antibiotic was started. She had modest improvement but was very resistant to definitive treatment for her addiction issues. Ultimately, she was a voluntary patient and decided she was ready to leave. During the hospitalization, the patient had routine laboratory studies which were within normal limits, except for a few outliers. Additionally, the patient had a general medical evaluation which was within normal limits and revealed no new acute processes, outside of those mentioned above. Discharge Summary At the time of discharge the patient denied all lethality, was absent psychosis, and mood and anxiety were well managed. The patient was resistant to committing to sober living treatment. The patient was evaluated and deemed to be absent credible lethality, and had achieved the maximum benefit from an inpatient hospitalization, and so she was discharged. Involuntary Hold Information 96 Hour Hold: 96 Hour Involuntary Admission: No Mental Status Exam MSE Comments: This is an obese, white female, with hospital scrubs on unkempt with limited grooming, and eye contact. No abnormal movements, except for mild psychomotor retardation. Cooperative with exam in no acute distress. Speech was more normal rate and volume. Mood described as better; affect brighter. Thought process, more organized. Thought content: patient denied any suicidal or homicidal ideation, there were no delusions reported or noted, patient denied any auditory or visual hallucinations. Attention, concentration appear intact, and memory appears limited but none were formally tested. She is alert and oriented times three. Insight and judgment are limited but improving. Impulse control is limited. Discharge Data Data Completed and Pending: Completed Studies During Hospitalization Category Date Time Status CT head wo con* 7 0450 Stat Cat Scan 04/09/20 06:50 Completed US gall bladder 7 1809 Urgent Ultrasound 04/09/20 07:21 Completed Pending at discharge Category Date Time Status Potassium Stat Lab 04/12/20 06:14 Ordered Labs from last 24 hours 04/12/20 06:50 POC Glucose 111 Vitals: Last Vital Signs Temp 97.7 F 04/12/20 06:00 Pulse 61 04/12/20 06:00 Resp 16 04/12/20 06:00 BP 113/65 04/12/20 06:00 Pulse Ox 94 04/12/20 06:00 Discharge Plan Discharge Patient Disposition: Home Condition: Stable Prescriptions: New divalproex 250 mg Tablet,Delayed Release (Dr/Ec) 250 mg PO BID 30 Days Qty: 60 RF: 1 nitrofurantoin monohyd/m-cryst 100 mg Capsule 100 mg PO BID 3 Days Qty: 5 RF: 0 potassium chloride 10 mEq Tablet Extended Release 10 meq PO DAILY 30 Days Qty: 30 RF: 1 trazodone 50 mg Tablet 50 mg PO BEDTIME PRN (Reason: Sleep) 30 Days Qty: 30 RF: 1 Continued (DME) blood-glucose meter Kit See Rx Instructions .ROUTE .MEDSUPPLY Qty: 1 RF: 5 buprenorphine-naloxone 8-2 mg film 1 film sublingual TID RF: 0 furosemide 20 mg tablet 20 mg PO QAM Qty: 30 RF: 2 Flonase Allergy Relief 50 mcg/actuation [place],Suspension 2 spray INTRANASAL DAILY RF: 0 metformin 500 mg tablet 500 mg PO BID RF: 0 levothyroxine 100 mcg tablet 100 mcg PO DAILY RF: 0 aspirin 325 mg Tablet 325 mg PO DAILY RF: 0 albuterol sulfate [ProAir HFA] 90 mcg/actuation HFA aerosol inhaler 1 - 2 inh INHALATION Q6H PRN (Reason: Shortness Of Breath) RF: 0 fluoxetine 20 mg Capsule 60 mg PO DAILY 30 Days Qty: 90 RF: 1 propranolol 40 mg tablet 40 mg PO BID 30 Days Qty: 60 RF: 1 Januvia 100 mg tablet 100 mg PO DAILY 30 Days Qty: 30 RF: 0 ropinirole [Requip] 0.25 mg tablet 0.25 mg PO DAILY 30 Days Qty: 30 RF: 0 Discontinued alprazolam 0.5 mg tablet 0.5 mg PO BID PRN (Reason: anxiety) 30 Days Qty: 60 RF: 0 Discharge Orders: Discharge Order (Routine); Ordered 04/12/20 Ordered By: Lc Yo [place]errals: [facility] [Outside] - 1-3 days (Follow up for outpatient mental health treatment.) [facility] [Outside] - 1-3 days (Resource for inpatient and outpatient substance abuse treatment.) Ibrahima Garcia MD [Physician] - 04/25/20 9:30 am (Follow Up Appointment with Dr. 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
[2020-04-12 08:28] VITALS: BP 113/65; PULSE 61; RESP 16; TEMP 36.5; O2SAT 94
[2020-04-12] MEDS: FUROsemide 20 mg Tablet PO (10:47)
--- NOTE | 2020-05-06 15:41 | DCPLANNER ---
Patient had a follow up appointment scheduled for 04.25.20 with [facility] - appointment was cancelled.
== END 2020-04-12 11:50 | disposition home or self-care (01) | DRG 897 ==
LOC: ER 06:46 → NP 14:27
PROVIDERS: Family Medicine; PCP Nurse Practitioner Family; Visit Provider Psychiatry & Neurology Psychiatry
DX: F15.122 Other stimulant abuse with intoxication with perceptual disturbance (principal); E87.6 Hypokalemia; F41.8 Other specified anxiety disorders; I11.0 Hypertensive heart disease with heart failure; I50.9 Heart failure, unspecified; E11.9 Type 2 diabetes mellitus without complications; E03.9 Hypothyroidism, unspecified; Z79.84 Long term (current) use of oral hypoglycemic drugs; F10.99 Alcohol use, unspecified with unspecified alcohol-induced disorder; E55.9 Vitamin D deficiency, unspecified
CPT/HCPCS: 12345; 36415; 36416; 70450; 76705; 80053; 80306; 80307; 81001; 81025; 82962; 83690; 84132; 85025; 94640; 96372; 99282; J0573; J2060; J3535

== ENCOUNTER → 2020-08-22 09:49 | Outpatient (BNVA) | payer MEDICAID, SELFPAY | PROVIDERS: PCP Nurse Practitioner Family; Visit Provider Nurse Practitioner Family | DX: E11.9 Type 2 diabetes mellitus without complications (principal) | CPT/HCPCS: 36416; 82962 ==

== ENCOUNTER 2021-02-19 19:18 | Emergency (ER) | payer MEDICAID, SELFPAY ==
[2021-02-19 20:20] VITALS: BP 146/92; PULSE 103; RESP 18; TEMP 37.2; O2SAT 98; BMI 34.0
--- NOTE | 2021-02-20 01:41 | ED_ITS ---
Documented by User: Severiano Trent MD 02/20/21 05:37 HPI - Abdominal Pain General: Chief Complaint: Abdominal Pain Stated Complaint: llqa pain and back pain Time Seen by Provider: 02/20/21 01:18 History of Present Illness: HPI narrative: This patient is a 40-year-old female who presents to the emergency department with complaint of low back pain. Patient is obviously appears to have been abusing some medication and admits that she did use methamphetamine prior to coming to the hospital. Patient also states she uses methamphetamine regularly. Patient appears to be tweaking. Patient states she been hurting her right low back. Has history of UTIs. Patient states she supposed be on multiple psych medications but does not take those. Patient denies suicidal ideation. Will do medical evaluation treat as needed MD elicited complaint: flank pain Associated Symptoms: Denies chills, dysuria, fever(s), nausea and vomiting Review of Systems General: Reports: 10 or more systems reviewed and unremarkable except in HPI and below Const: Denies: fever(s), chills, body aches or fatigue Eyes: Denies: change in vision or blurry vision ENMT: Denies: throat pain, hoarseness or mouth pain Card: Denies: chest pain, palpitations, irregular heart rhythm, edema, swelling of feet/ankles or lightheadedness Resp: Denies: dyspnea, productive cough, non-productive cough, wheezing or pain on inspiration GI: Denies: abdominal pain, nausea or vomiting : Reports: flank pain; Denies: difficulty voiding, dysuria, urinary frequency, urinary urgency or urinary hesitancy Musc: Denies: neck pain, back pain, extremity pain, extremity swelling, joint pain, joint swelling, joint redness, joint warmth or limited range of motion Skin/Breast: Denies: rash, pruritus, erythema or skin tenderness Neuro: Denies: headache(s), numbness in extremities or weakness in extremities Psych: Denies: anxiety or depression PFSH ED PFSH: Medical History Abdominal pain Anxiety with depression Congestive heart failure Diabetes mellitus, type II FH: breast cancer in first degree relative H/O chronic hepatitis Hepatic encephalopathy Hypertension Hypothyroid Opiate dependence Vitamin D deficiency Yeast dermatitis Surgical History History of Social History Smoking and tobacco status: current every day smoker Second hand smoke exposure: No Smoking risk assessment/counseling performed?: No Alcohol intake: never Desire information about alcohol rehabilitation?: No Counseling given: No Desire information about substance/drug rehabilitation?: No Counseling given: No Physical Exam Const: COMMON NORMALS: no acute distress, average body habitus, patient oriented x3, no limitations, healthy appearing, alert and well nourished HENMT: COMMON NORMALS: normocephalic, atraumatic, hearing grossly normal bilaterally, external ears normal, EAC's normal, TM's normal bilaterally, Normal external nose present, Normal nasal mucous membranes and turbinates present, moist oral mucous membranes, oropharynx normal, dentition normal and gingiva normal HEAD & SCALP: normocephalic and atraumatic NOSE: Normal external nose present and Normal nasal mucous membranes and turbinates present EXTERNAL EAR: Yes external ears normal EXTERNAL AUDITORY CANAL: EAC's normal TYMPANIC MEMBRANE: TM's normal bilaterally OTHER: Patient appears to have meth mouth Neck/C-Spine: COMMON NORMALS: full ROM, no lymphadenopathy, supple, no meningeal signs, no JVD, Thyroid normal and No carotid bruits THYROID: Thyroid normal Chest: COMMONS NORMALS: normal inspection of the chest, normal palpation of entire chest wall, normal inspection of the breasts and normal palpation of the breasts Breast/axilla inspection: Yes normal inspection of the breasts BREAST/AXILLA PALPATION: Yes normal palpation of the breasts Resp: COMMON NORMALS: normal respiratory effort, No retractions, No use of accessory muscles, clear to auscultation bilaterally and percussion normal AUSCULTATION: clear to auscultation bilaterally PERCUSSION: percussion normal Cardio: COMMON NORMALS: no JVD, regular rate, regular rhythm, S1 normal heart sound present, S2 normal heart sound present, No gallops present (Cardio), No clicks present (Cardio), No murmurs present (Cardio), No rub (Cardio) and Peripheral pulses 2+ throughout RATE: regular rate RHYTHM: regular rhythm HEART SOUNDS: S1 normal heart sound present and S2 normal heart sound present PERIPHERAL PULSES: Peripheral pulses 2+ throughout GI: COMMON NORMALS: Normal to inspection, nondistended, normoactive bowel sounds present, Soft to palpation, non-tender, No hepatosplenomegaly present, no masses and no bruits PALPATION: Yes Soft to palpation and Yes No hepatosplenomegaly present Back/Pelvis: COMMON NORMALS: thoracic and lumbar spine normal to inspection, no thoracic nor lumbar tenderness, thoraco-lumbar ROM normal and straight leg raise negative bilaterally Extremity: COMMON NORMALS: normal to inspection, full ROM, capillary refill normal, no joint enlargement, no clubbing, cyanosis or edema, no calf tenderness and no pedal edema Neuro: COMMON NORMALS: patient oriented x3 SENSORIUM/ORIENTATION: Yes alert MENINGEAL SIGNS: Yes no meningeal signs Psych: APPEARANCE: Yes unkempt and Yes disheveled ATTITUDE: Yes bizarre and Yes Belligerent attititude/behavior present ACTIVITY/MOTOR BEHAVIOR: Yes fidgeting and Yes restless SPEECH: Yes excessive and Yes rapid THOUGHT PROCESS: disorganized Course Consultations: Consultation #1: Care transferred to Dr. Jenkins for shift change. Time: 05:36 Vital Signs: Vital signs: Vital Signs Temperature 98 F 02/20/21 06:10 Pulse Rate 91 02/20/21 10:22 Respiratory Rate 19 H 02/20/21 10:22 Blood Pressure 102/65 02/20/21 10:22 Pulse Oximetry 91 02/20/21 10:22 MDM - Abdominal Pain Lab Data: Labs: Lab Results 02/20/21 02/20/21 02/20/21 Range/Units 02:15 02:15 02:15 WBC 12.8 H (4.0-10.0) 10^3/ uL RBC 4.02 L (4.1-5.3) 10^6/u L Hgb 9.4 L (11.5-15.3) g/dL Hct 30.1 L (37.0-47.0) % MCV 74.9 L (81-99) fL MCH 23.4 L (28.0-34.0) pg MCHC 31.2 (30.0-36.0) g/dL RDW 21.8 H (12.1-15.1) % Plt Count 72 L (130-400) 10^3/c mm MPV 9.5 (7.4-10.4) fL Lymph % (Auto) Not Reportable [facility] % (Auto) Not Reportable Lymph # (Auto) Not Reportable [facility] # (Auto) Not Reportable Total Counted 100 (0-100) Atypical Lymphs % 0.0 (0-5) % Absolute Neutrophi ls 11.5 H (1.4-6.5) 10^3/c mm Segmented Neutroph ils 55 % Abs Segm Neuts (Ma n) 7.0 (1.6-7.1) 10/cmm Band Neutrophils 35.0 % Abs Band Neuts (Ma n) 4.5 H (0.0-1.2) 10^3/c mm Absolute Lymphocyt es 0.1 L (1.2-3.4) 10^3/c mm Lymphocytes (Manua l) 1 % Monocytes (Manual) 1.0 % Absolute Monocytes 0.1 (0.1-0.6) 10^3/c mm Eosinophils (Manua l) 0 % Absolute Eosinophi ls 0.0 (0.0-0.7) 10^3/c mm Basophils (Manual) 0.0 % Absolute Basophils 0.0 (0.0-0.2) 10^3/c mm Metamyelocytes 10.0 % Platelet Estimate Decreased L (Normal) Hypochromasia 1+ H Anisocytosis 2+ H Target Cells 1+ H Sodium 137 (136-145) mmol/L Potassium 3.7 (3.5-5.1) mmol/L Chloride 101 (98-107) mmol/L Carbon Dioxide 16 L (22-29) mmol/L Anion Gap 23.7 H (5-19) BUN 22 H (6-20) mg/dL Creatinine 1.8 H (0.5-0.9) mg/dL GFR Calculation 31.2 L (90-130) mL/min Glucose 116 H (65-115) mg/dL Calculated Osmolal ity 288 (285-295) mOsm/k g Calcium 8.7 (8.5-10.5) mg/dL Total Bilirubin 2.8 H (0.15-1.2) mg/dL AST 135 H (0-32) U/L ALT 55 H (0-33) U/L Alkaline Phosphata se 179 H (35-105) IU/L Total Protein 7.9 (6.6-8.7) g/dL Albumin 3.5 (3.5-5.2) g/dL Globulin 4.4 (1.3-4.6) g/dL HCG, Qual Negative (Negative) Urine Color (Yellow) Urine Appearance (CLEAR) Urine pH (5-7) Ur Specific Gravit y (1.005-1.030) Urine Protein (Negative) Urine Glucose (UA) (Normal) Urine Ketones (Negative) Urine Blood (Negative) Urine Nitrate (Negative) Urine Bilirubin (Negative) Urine Urobilinogen (Negative) mg/dL Ur Leukocyte Jody ase (Negative) Urine RBC (0-2) /hpf Urine WBC (0-5) /hpf Ur Squamous Epith Cells (0-5) /hpf Amorphous Sediment Urine Bacteria (NONE) /hpf Urine Opiates Scre en (Negative) ng/mL Ur Barbiturates Sc reen (Negative) ng/mL Ur Phencyclidine S crn (Negative) ng/mL Ur Amphetamines Sc reen (Negative) ng/mL U Benzodiazepines Scrn (Negative) ng/mL Urine Cocaine Scre en (Negative) ng/mL U Marijuana (THC) Screen (Negative) ng/mL 02/20/21 02/20/21 02/20/21 Range/Units 03:46 03:46 12:23 WBC (4.0-10.0) 10^3/ uL RBC (4.1-5.3) 10^6/u L Hgb (11.5-15.3) g/dL Hct (37.0-47.0) % MCV (81-99) fL MCH (28.0-34.0) pg MCHC (30.0-36.0) g/dL RDW (12.1-15.1) % Plt Count (130-400) 10^3/c mm MPV (7.4-10.4) fL Lymph % (Auto) [facility] % (Auto) Lymph # (Auto) [facility] # (Auto) Total Counted (0-100) Atypical Lymphs % (0-5) % Absolute Neutrophi ls (1.4-6.5) 10^3/c mm Segmented Neutroph ils % Abs Segm Neuts (Ma n) (1.6-7.1) 10/cmm Band Neutrophils % Abs Band Neuts (Ma n) (0.0-1.2) 10^3/c mm Absolute Lymphocyt es (1.2-3.4) 10^3/c mm Lymphocytes (Manua l) % Monocytes (Manual) % Absolute Monocytes (0.1-0.6) 10^3/c mm Eosinophils (Manua l) % Absolute Eosinophi ls (0.0-0.7) 10^3/c mm Basophils (Manual) % Absolute Basophils (0.0-0.2) 10^3/c mm Metamyelocytes % Platelet Estimate (Normal) Hypochromasia Anisocytosis Target Cells Sodium 138 (136-145) mmol/L Potassium 3.2 L (3.5-5.1) mmol/L Chloride 107 (98-107) mmol/L Carbon Dioxide 18 L (22-29) mmol/L Anion Gap 16.2 (5-19) BUN 23 H (6-20) mg/dL Creatinine 1.0 H (0.5-0.9) mg/dL GFR Calculation 61.4 L (90-130) mL/min Glucose 124 H (65-115) mg/dL Calculated Osmolal ity 291 (285-295) mOsm/k g Calcium 7.6 L (8.5-10.5) mg/dL Total Bilirubin (0.15-1.2) mg/dL AST (0-32) U/L ALT (0-33) U/L Alkaline Phosphata se (35-105) IU/L Total Protein (6.6-8.7) g/dL Albumin (3.5-5.2) g/dL Globulin (1.3-4.6) g/dL HCG, Qual (Negative) Urine Color Dark yellow (Yellow) Urine Appearance Cloudy (CLEAR) Urine pH 5 (5-7) Ur Specific Gravit y 1.010 (1.005-1.030) Urine Protein Trace (Negative) Urine Glucose (UA) Norm (Normal) Urine Ketones Negative (Negative) Urine Blood Trace H (Negative) Urine Nitrate Negative (Negative) Urine Bilirubin 1+ H (Negative) Urine Urobilinogen 8 H (Negative) mg/dL Ur Leukocyte Jody ase 2+ H (Negative) Urine RBC 0-4 H (0-2) /hpf Urine WBC >100 H (0-5) /hpf Ur Squamous Epith Cells 25-40 H (0-5) /hpf Amorphous Sediment Not Reportable Urine Bacteria 4+ H (NONE) /hpf Urine Opiates Scre en Positive H (Negative) ng/mL Ur Barbiturates Sc reen Negative (Negative) ng/mL Ur Phencyclidine S crn Negative (Negative) ng/mL Ur Amphetamines Sc reen Positive H (Negative) ng/mL U Benzodiazepines Scrn Positive H (Negative) ng/mL Urine Cocaine Scre en Negative (Negative) ng/mL U Marijuana (THC) Screen Positive H (Negative) ng/mL Discharge Plan Discharge Patient Disposition: Home Clinical Impression: Cystitis, Diabetes mellitus, type II, Methamphetamine abuse Condition: Stable Prescriptions: New ondansetron HCl [Zofran] 4 mg tablet 4 mg PO Q6H PRN (Reason: nausea and vomiting) Qty: 15 RF: 0 ciprofloxacin HCl [Cipro] 500 mg tablet 500 mg PO BID Qty: 14 RF: 0 No Action buprenorphine-naloxone 8-2 mg film 1 film sublingual TID RF: 0 (DME) blood sugar diagnostic Strip See Rx Instructions .ROUTE .MEDSUPPLY Qty: 100 RF: 5 lactulose [Generlac] 10 gram/15 mL solution See Rx Instructions .ROUTE .COMPLEX Qty: 630 RF: 0 fluoxetine 40 mg capsule 80 mg PO DAILY RF: 0 furosemide 20 mg tablet 20 mg PO BID RF: 0 insulin aspart U-100 [Novolog Flexpen U-100 Insulin] 100 unit/mL (3 mL) insulin pen 10 unit SUBCUT TID RF: 0 Lantus Solostar U-100 Insulin 100 unit/mL (3 mL) insulin pen 20 unit SUBCUT QAM RF: 0 levothyroxine 100 mcg tablet 100 mcg PO DAILY RF: 0 propranolol 40 mg tablet 40 mg PO BID RF: 0 Plus Tablet 1 tab PO DAILY RF: 0 Discharge Orders: Discharge ED (Routine); Ordered 02/20/21 Ordered By: Guerrero Jenkins Referrals: MADAN Mayfield, BLOOD COORDINATOR [Primary Care Provider] - Discharge Diet: Usual diet Discharge Activity: Increase activity as tolerated Patient Instructions: Opioid Safety Activity Restrictions/Additional Instructions: Stop using methamphetamine. Increase fluids. Take antibiotics as prescribed. Use all other medications as prescribed. Do not take more of the Suboxone than is prescribed. Follow-up with your primary care doctor within the week. Coding Level of Care Code ED Network Architect for Chg Fwd Exam Comprehensive Documented by User: Guerrero Jenkins DO 02/23/21 03:26 HPI - Abdominal Pain General: Chief Complaint: Abdominal Pain Stated Complaint: llqa pain and back pain Time Seen by Provider: 02/20/21 01:18 PFSH ED PFSH: Medical History Abdominal pain Anxiety with depression Congestive heart failure Diabetes mellitus, type II FH: breast cancer in first degree relative H/O chronic hepatitis Hepatic encephalopathy Hypertension Hypothyroid Opiate dependence Vitamin D deficiency Yeast dermatitis Surgical History History of Social History Smoking and tobacco status: current every day smoker Second hand smoke exposure: No Smoking risk assessment/counseling performed?: No Alcohol intake: never Desire information about alcohol rehabilitation?: No Counseling given: No Desire information about substance/drug rehabilitation?: No Counseling given: No Course Vital Signs: Vital signs: Vital Signs Temperature 98 F 02/20/21 06:10 Pulse Rate 91 02/20/21 10:22 Respiratory Rate 19 H 02/20/21 10:22 Blood Pressure 102/65 02/20/21 10:22 Pulse Oximetry 91 02/20/21 10:22 MDM - Abdominal Pain MDM Narrative: Medical decision making narrative: Care assumed a change of shift. Patient has cystitis. Patient was watched for a long period of time she is acutely intoxicated on multiple meds drugs according the tox screen. We will treat her for cystitis and discharge her home. Lab Data: Labs: Lab Results 02/20/21 02/20/21 02/20/21 Range/Units 02:15 02:15 02:15 WBC 12.8 H (4.0-10.0) 10^3/ uL RBC 4.02 L (4.1-5.3) 10^6/u L Hgb 9.4 L (11.5-15.3) g/dL Hct 30.1 L (37.0-47.0) % MCV 74.9 L (81-99) fL MCH 23.4 L (28.0-34.0) pg MCHC 31.2 (30.0-36.0) g/dL RDW 21.8 H (12.1-15.1) % Plt Count 72 L (130-400) 10^3/c mm MPV 9.5 (7.4-10.4) fL Lymph % (Auto) Not Reportable [facility] % (Auto) Not Reportable Lymph # (Auto) Not Reportable [facility] # (Auto) Not Reportable Total Counted 100 (0-100) Atypical Lymphs % 0.0 (0-5) % Absolute Neutrophi ls 11.5 H (1.4-6.5) 10^3/c mm Segmented Neutroph ils 55 % Abs Segm Neuts (Ma n) 7.0 (1.6-7.1) 10/cmm Band Neutrophils 35.0 % Abs Band Neuts (Ma n) 4.5 H (0.0-1.2) 10^3/c mm Absolute Lymphocyt es 0.1 L (1.2-3.4) 10^3/c mm Lymphocytes (Manua l) 1 % Monocytes (Manual) 1.0 % Absolute Monocytes 0.1 (0.1-0.6) 10^3/c mm Eosinophils (Manua l) 0 % Absolute Eosinophi ls 0.0 (0.0-0.7) 10^3/c mm Basophils (Manual) 0.0 % Absolute Basophils 0.0 (0.0-0.2) 10^3/c mm Metamyelocytes 10.0 % Platelet Estimate Decreased L (Normal) Hypochromasia 1+ H Anisocytosis 2+ H Target Cells 1+ H Sodium 137 (136-145) mmol/L Potassium 3.7 (3.5-5.1) mmol/L Chloride 101 (98-107) mmol/L Carbon Dioxide 16 L (22-29) mmol/L Anion Gap 23.7 H (5-19) BUN 22 H (6-20) mg/dL Creatinine 1.8 H (0.5-0.9) mg/dL GFR Calculation 31.2 L (90-130) mL/min Glucose 116 H (65-115) mg/dL Calculated Osmolal ity 288 (285-295) mOsm/k g Calcium 8.7 (8.5-10.5) mg/dL Total Bilirubin 2.8 H (0.15-1.2) mg/dL AST 135 H (0-32) U/L ALT 55 H (0-33) U/L Alkaline Phosphata se 179 H (35-105) IU/L Total Protein 7.9 (6.6-8.7) g/dL Albumin 3.5 (3.5-5.2) g/dL Globulin 4.4 (1.3-4.6) g/dL HCG, Qual Negative (Negative) Urine Color (Yellow) Urine Appearance (CLEAR) Urine pH (5-7) Ur Specific Gravit y (1.005-1.030) Urine Protein (Negative) Urine Glucose (UA) (Normal) Urine Ketones (Negative) Urine Blood (Negative) Urine Nitrate (Negative) Urine Bilirubin (Negative) Urine Urobilinogen (Negative) mg/dL Ur Leukocyte Jody ase (Negative) Urine RBC (0-2) /hpf Urine WBC (0-5) /hpf Ur Squamous Epith Cells (0-5) /hpf Amorphous Sediment Urine Bacteria (NONE) /hpf Urine Opiates Scre en (Negative) ng/mL Ur Barbiturates Sc reen (Negative) ng/mL Ur Phencyclidine S crn (Negative) ng/mL Ur Amphetamines Sc reen (Negative) ng/mL U Benzodiazepines Scrn (Negative) ng/mL Urine Cocaine Scre en (Negative) ng/mL U Marijuana (THC) Screen (Negative) ng/mL 02/20/21 02/20/21 02/20/21 Range/Units 03:46 03:46 12:23 WBC (4.0-10.0) 10^3/ uL RBC (4.1-5.3) 10^6/u L Hgb (11.5-15.3) g/dL Hct (37.0-47.0) % MCV (81-99) fL MCH (28.0-34.0) pg MCHC (30.0-36.0) g/dL RDW (12.1-15.1) % Plt Count (130-400) 10^3/c mm MPV (7.4-10.4) fL Lymph % (Auto) [facility] % (Auto) Lymph # (Auto) [facility] # (Auto) Total Counted (0-100) Atypical Lymphs % (0-5) % Absolute Neutrophi ls (1.4-6.5) 10^3/c mm Segmented Neutroph ils % Abs Segm Neuts (Ma n) (1.6-7.1) 10/cmm Band Neutrophils % Abs Band Neuts (Ma n) (0.0-1.2) 10^3/c mm Absolute Lymphocyt es (1.2-3.4) 10^3/c mm Lymphocytes (Manua l) % Monocytes (Manual) % Absolute Monocytes (0.1-0.6) 10^3/c mm Eosinophils (Manua l) % Absolute Eosinophi ls (0.0-0.7) 10^3/c mm Basophils (Manual) % Absolute Basophils (0.0-0.2) 10^3/c mm Metamyelocytes % Platelet Estimate (Normal) Hypochromasia Anisocytosis Target Cells Sodium 138 (136-145) mmol/L Potassium 3.2 L (3.5-5.1) mmol/L Chloride 107 (98-107) mmol/L Carbon Dioxide 18 L (22-29) mmol/L Anion Gap 16.2 (5-19) BUN 23 H (6-20) mg/dL Creatinine 1.0 H (0.5-0.9) mg/dL GFR Calculation 61.4 L (90-130) mL/min Glucose 124 H (65-115) mg/dL Calculated Osmolal ity 291 (285-295) mOsm/k g Calcium 7.6 L (8.5-10.5) mg/dL Total Bilirubin (0.15-1.2) mg/dL AST (0-32) U/L ALT (0-33) U/L Alkaline Phosphata se (35-105) IU/L Total Protein (6.6-8.7) g/dL Albumin (3.5-5.2) g/dL Globulin (1.3-4.6) g/dL HCG, Qual (Negative) Urine Color Dark yellow (Yellow) Urine Appearance Cloudy (CLEAR) Urine pH 5 (5-7) Ur Specific Gravit y 1.010 (1.005-1.030) Urine Protein Trace (Negative) Urine Glucose (UA) Norm (Normal) Urine Ketones Negative (Negative) Urine Blood Trace H (Negative) Urine Nitrate Negative (Negative) Urine Bilirubin 1+ H (Negative) Urine Urobilinogen 8 H (Negative) mg/dL Ur Leukocyte Jody ase 2+ H (Negative) Urine RBC 0-4 H (0-2) /hpf Urine WBC >100 H (0-5) /hpf Ur Squamous Epith Cells 25-40 H (0-5) /hpf Amorphous Sediment Not Reportable Urine Bacteria 4+ H (NONE) /hpf Urine Opiates Scre en Positive H (Negative) ng/mL Ur Barbiturates Sc reen Negative (Negative) ng/mL Ur Phencyclidine S crn Negative (Negative) ng/mL Ur Amphetamines Sc reen Positive H (Negative) ng/mL U Benzodiazepines Scrn Positive H (Negative) ng/mL Urine Cocaine Scre en Negative (Negative) ng/mL U Marijuana (THC) Screen Positive H (Negative) ng/mL Discharge Plan Discharge Patient Disposition: Home Clinical Impression: Cystitis, Diabetes mellitus, type II, Methamphetamine abuse Condition: Stable Prescriptions: New ondansetron HCl [Zofran] 4 mg tablet 4 mg PO Q6H PRN (Reason: nausea and vomiting) Qty: 15 RF: 0 ciprofloxacin HCl [Cipro] 500 mg tablet 500 mg PO BID Qty: 14 RF: 0 No Action buprenorphine-naloxone 8-2 mg film 1 film sublingual TID RF: 0 (DME) blood sugar diagnostic Strip See Rx Instructions .ROUTE .MEDSUPPLY Qty: 100 RF: 5 lactulose [Generlac] 10 gram/15 mL solution See Rx Instructions .ROUTE .COMPLEX Qty: 630 RF: 0 fluoxetine 40 mg capsule 80 mg PO DAILY RF: 0 furosemide 20 mg tablet 20 mg PO BID RF: 0 insulin aspart U-100 [Novolog Flexpen U-100 Insulin] 100 unit/mL (3 mL) insulin pen 10 unit SUBCUT TID RF: 0 Lantus Solostar U-100 Insulin 100 unit/mL (3 mL) insulin pen 20 unit SUBCUT QAM RF: 0 levothyroxine 100 mcg tablet 100 mcg PO DAILY RF: 0 propranolol 40 mg tablet 40 mg PO BID RF: 0 Plus Tablet 1 tab PO DAILY RF: 0 Discharge Orders: Discharge ED (Routine); Ordered 02/20/21 Ordered By: Guerrero Jenkins Referrals: MADAN Mayfield, BLOOD COORDINATOR [Primary Care Provider] - Discharge Diet: Usual diet Discharge Activity: Increase activity as tolerated Patient Instructions: Opioid Safety Activity Restrictions/Additional Instructions: Stop using methamphetamine. Increase fluids. Take antibiotics as prescribed. Use all other medications as prescribed. Do not take more of the Suboxone than is prescribed. Follow-up with your primary care doctor within the week. Coding Level of Care Code ED Network Architect for Renatag Fwd Exam Comprehensive
[2021-02-20 02:22] LABS: Hematocrit 30.1 % (37.0-47.0); Hemoglobin 9.4 g/dL (11.5-15.3); Mean Corpuscular HGB Conc 31.2 g/dL (30.0-36.0); Mean Corpuscular Hemoglobin 23.4 pg (28.0-34.0); Mean Corpuscular Volume 74.9 fL (81-99); Mean Platelet Volume 9.5 fL (7.4-10.4); Platelet Count 72 10^3/cmm (130-400); Red Blood Count 4.02 10^6/uL (4.1-5.3); Red Cell Distribution Width 21.8 % (12.1-15.1); White Blood Count 12.8 10^3/uL (4.0-10.0)
[2021-02-20 02:48] LABS: HCG, Serum Qual Negative (Negative)
[2021-02-20] MEDS: sodium chloride 0.9% 1,000 ML 999 ML IV ×3 (02:49→10:39)
[2021-02-20] MEDS: diphenhydrAMINE 50 mg/mL SDV 1mL 25 MG IVP (02:50)
[2021-02-20 02:53] LABS: Absolute Neutrophil 11.5 10^3/cmm (1.4-6.5); Anisocytosis 2+; Band Neutrophils Absolute 4.5 10^3/cmm (0.0-1.2); Eosinophils 0 %; Hypochromasia 1+; Lymphocytes 1 %; Lymphocytes Absolute 0.1 10^3/cmm (1.2-3.4); Monocytes Absolute 0.1 10^3/cmm (0.1-0.6); Platelet Estimate Decreased (Normal); Segmented Neutrophils 55 %; Slide Review Slide Review Perform; Total Cells Counted 100 (0-100)
[2021-02-20 02:54] LABS: Target Cells 1+
[2021-02-20 03:10] LABS: Alanine Aminotransferase 55 U/L (0-33); Albumin Level 3.5 g/dL (3.5-5.2); Alkaline Phosphatase 179 IU/L (35-105); Aspartate Amino Transferase 135 U/L (0-32); Blood Urea Nitrogen 22 mg/dL (6-20); Calcium 8.7 mg/dL (8.5-10.5); Carbon Dioxide 16 mmol/L (22-29); Chloride 101 mmol/L (98-107); Globulin 4.4 g/dL (1.3-4.6); Glomerular Filtration Rate 31.2 mL/min (90-130); Glucose 116 mg/dL (65-115); Osmolality Calculated 288 mOsm/kg (285-295); Sodium 137 mmol/L (136-145); Total Bilirubin 2.8 mg/dL (0.15-1.2); Total Protein 7.9 g/dL (6.6-8.7)
[2021-02-20 03:14] LABS: Anion Gap 23.7 (5-19); Potassium 3.7 mmol/L (3.5-5.1)
[2021-02-20 04:06] LABS: Add Urine Microscopic? YES; Bilirubin Urine 1+ (Negative); Blood Urine Trace (Negative); Glucose Urine UA Norm (Normal); Ketones Urine Negative (Negative); Leukocyte Esterase Urine 2+ (Negative); Nitrate Urine Negative (Negative); Protein Urine Trace (Negative); Urine Appearance Cloudy (CLEAR); Urine Color Dark Yellow (Yellow); Urobilinogen Urine 8 mg/dL (Negative); pH Urine 5 (5-7)
[2021-02-20 04:07] LABS: Add Urine Culture? No; Bacteria Urine 4+ /hpf; RBC Urine 0-4 /hpf (0-2); Squamous Epithelial Cell Urine 25-40 /hpf (0-5); WBC Urine >100 /hpf (0-5)
[2021-02-20 04:09] LABS: Amphetamines Screen Urine Positive (Negative); Barbiturates Screen Urine Negative (Negative); Benzodiazepines Screen Urine Positive (Negative); Cocaine Screen Urine Negative (Negative); Opiate Screen Urine Positive (Negative); PCP Screen Urine Negative (Negative); THC Screen Urine Positive (Negative)
--- NOTE | 2021-02-20 04:14 | CTR_ITS ---
PROCEDURE INFORMATION: Exam: CT Abdomen And Pelvis Without Contrast Exam date and time: 02/20/2021 4:14 AM Age: 40 years old Clinical indication: Abdominal pain; Patient HX: Left flank pain. Patient non-compliant. Appeared to be under the influence. Would not lay supine. Unable to keep still. Best scan obtained. TECHNIQUE: Imaging protocol: Computed tomography of the abdomen and pelvis without contrast. Radiation optimization: All CT scans at this facility use at least one of these dose optimization techniques: automated exposure control; mA and/or kV adjustment per patient size (includes targeted exams where dose is matched to clinical indication); or iterative reconstruction. COMPARISON: US abdomen limited [id number] 09/20/2017 6:24 AM RADIATION DOSE METRICS: Total DLP (mGy-cm): 1877.18 FINDINGS: Lungs: The lung bases are clear. No effusion Liver: There is fatty infiltration of the liver. Gallbladder and bile ducts: Gallbladder is normal. Pancreas: Normal. No ductal dilation. Spleen: Spleen is normal. Adrenal glands: Adrenals are normal. Kidneys and ureters: Kidneys are normal. Stomach and bowel: Unremarkable. No obstruction. No mucosal thickening. Appendix: No evidence of appendicitis. Intraperitoneal space: Unremarkable. No free air. No significant fluid collection. Vasculature: Unremarkable. No abdominal aortic aneurysm. Lymph nodes: Unremarkable. No enlarged lymph nodes. Urinary bladder: Unremarkable as visualized. Reproductive: Unremarkable as visualized. Bones/joints: Unremarkable. No acute fracture. Soft tissues: Unremarkable. CT/CT kidney stone [id number] IMPRESSION: 1. No cause for acute pain is identified. 2. Fatty infiltration of the liver. Radiation Dose CTDIVOL = (mGy): DLP = 1877.18 (mGy-cm)
[2021-02-20] MEDS: ketorolac 30 mg/mL INJ 15 MG IVP (05:02)
[2021-02-20] MEDS: cefTRIAXone 1,000 MG in sodium chloride 0.9% (plus) 50 ML 100 MG IV (05:03)
[2021-02-20 06:10] VITALS: BP 121/59; PULSE 89; RESP 16; TEMP 36.6; O2SAT 98
[2021-02-20] MEDS: LORazepam 2 mg/mL INJ 1 mL 1 MG IM (08:32)
[2021-02-20] MEDS: LORazepam 2 mg/mL INJ 1 mL IVP (09:33)
[2021-02-20 10:22] VITALS: BP 102/65; PULSE 91; RESP 19; O2SAT 91
[2021-02-20 12:47] LABS: Anion Gap 16.2 (5-19); Blood Urea Nitrogen 23 mg/dL (6-20); Calcium 7.6 mg/dL (8.5-10.5); Carbon Dioxide 18 mmol/L (22-29); Chloride 107 mmol/L (98-107); Glomerular Filtration Rate 61.4 mL/min (90-130); Glucose 124 mg/dL (65-115); Osmolality Calculated 291 mOsm/kg (285-295); Potassium 3.2 mmol/L (3.5-5.1); Sodium 138 mmol/L (136-145)
== END 2021-02-20 21:53 | disposition home or self-care (01) ==
PROVIDERS: Nurse Practitioner Family; Emergency Provider Family Medicine; PCP Nurse Practitioner Family
DX: N30.90 Cystitis, unspecified without hematuria (principal); F15.10 Other stimulant abuse, uncomplicated; I11.0 Hypertensive heart disease with heart failure; I50.9 Heart failure, unspecified; E11.9 Type 2 diabetes mellitus without complications; E03.9 Hypothyroidism, unspecified; F17.200 Nicotine dependence, unspecified, uncomplicated; Z79.4 Long term (current) use of insulin
CPT/HCPCS: 74176; 80048; 80053; 80306; 81001; 84703; 85007; 85025; 96361; 96365; 96372; 96375; 99284; J0696; J1200; J1885; J2060; J7030

== ENCOUNTER 2021-02-21 00:05 | Inpatient (IN) | payer MEDICAID, SELFPAY ==
[2021-02-21] VITALS (13 sets, daily range): BP systolic 115–150; BP diastolic 52–83; PULSE 61–107; RESP 17–30; TEMP 36.6–37.6; O2SAT 86–98; BMI 35.4
--- NOTE | 2021-02-21 00:17 | ECG_ITS ---
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 Measurements Intervals [place] Rate: 98 P: 25 NC: 170 QRS: 58 QRSD: 102 T: 45 QT: 360 QTc: 460 Interpretive Statements SINUS RHYTHM NONSPECIFIC T-WAVE ABNORMALITY Compared to ECG 10/06/2017 11:57:47 No significant changes Electronically Signed On 02-22-2021 18:32:51 CDT by Radha Sofia M.D. [id number]
--- NOTE | 2021-02-21 00:17 | CTR_ITS ---
PROCEDURE INFORMATION: Exam: CT Head Without Contrast Exam date and time: 02/21/2021 12:17 AM Age: 40 years old Clinical indication: Altered mental status/memory loss; Patient HX: AMS. Possible drug overdose. Patient non compliant. Best scan obtained. TECHNIQUE: Imaging protocol: Computed tomography of the head without contrast. Radiation optimization: All CT scans at this facility use at least one of these dose optimization techniques: automated exposure control; mA and/or kV adjustment per patient size (includes targeted exams where dose is matched to clinical indication); or iterative reconstruction. COMPARISON: CT head wo con* [id number] 04/09/2020 6:58 AM RADIATION DOSE METRICS: Total DLP (mGy-cm): 1670.1 FINDINGS: Brain: No acute intracranial hemorrhage or mass effect. No definite acute infarct by CT. MRI could be more sensitive/specific for detection, as clinically directed. Cerebral ventricles: Ventricle size is normal for age. Paranasal sinuses: Included paranasal sinuses are essentially clear. Mastoid air cells: No significant acute finding. Bones/joints: No definite acute skull fracture. CT/CT head wo con* [id number] IMPRESSION: 1. No acute intracranial hemorrhage or mass effect. 2. No definite acute infarct by CT, see above. 3. Other findings discussed above. 4. Some limitations due to artifact from patient motion. Radiation Dose CTDIVOL = (mGy): DLP = 1670.1 (mGy-cm)
--- NOTE | 2021-02-21 00:17 | XRR_ITS ---
PROCEDURE INFORMATION: Exam: XR Chest Exam date and time: 02/21/2021 12:17 AM Age: 40 years old Clinical indication: Patient HX: AMS. Possible drug overdose. Unable to obtain history. TECHNIQUE: Imaging protocol: XR of the chest. Views: 1 view. COMPARISON: CR Chest 1 [place] [id number] 09/19/2017 11:11 AM FINDINGS: Lungs: No CHF/pulmonary edema. Poor inspiration somewhat limits evaluation, especially of the lung bases. Mild to moderate left lower lung opacities. Findings could represent atelectasis or pneumonitis. Please correlate clinically. Visible lungs otherwise appear essentially clear. Pleural spaces: No visible pneumothorax. No definite pleural fluid. Heart/Mediastinum: Heart size is within normal limits. Bones/joints: No significant acute finding. XR/XR chest 1V portable [id number] IMPRESSION: 1. Mild to moderate left lower lung opacities. Findings could represent atelectasis or pneumonitis. Please correlate clinically. 2. Other findings discussed above.
--- NOTE | 2021-02-21 00:32 | W.ED.AMS ---
HPI - Altered Mental Status General: Chief Complaint: Altered Mental Status Stated Complaint: POSSIBLE OVERDOSE Time Seen by Provider: 02/21/21 00:06 Source: EMS Mode of arrival: EMS Limitations: altered mental status History of Present Illness: HPI narrative: 40-year-old female who was seen here yesterday and discharged this afternoon for drug overdose. Patient had been using methamphetamine and admitted using meth earlier. Patient was found tonight at case he is altered. Here she is able to tell me her name but otherwise is able getting much of the history. She does have extensive drug abuse. Patient does have a low-grade fever and is requiring oxygen now which she did not require earlier. Review of Systems General: Reports: ROS unobtainable due to mental status PFSH ED PFSH: Medical History Abdominal pain Anxiety with depression Congestive heart failure Diabetes mellitus, type II FH: breast cancer in first degree relative H/O chronic hepatitis Hepatic encephalopathy Hypertension Hypothyroid Opiate dependence Vitamin D deficiency Yeast dermatitis Surgical History History of Social History Smoking and tobacco status: current every day smoker Second hand smoke exposure: No Smoking risk assessment/counseling performed?: No Alcohol intake: never Desire information about alcohol rehabilitation?: No Counseling given: No Desire information about substance/drug rehabilitation?: No Counseling given: No Physical Exam Const: COMMON NORMALS: no acute distress and alert; negative for patient oriented x3 EXAM LIMITATIONS: altered mental status GENERAL APPEARANCE: disheveled ORIENTATION/CONSCIOUSNESS: Yes oriented to person; not oriented to place and not oriented to time HENMT: COMMON NORMALS: normocephalic and atraumatic HEAD & SCALP: normocephalic and atraumatic Eye: COMMON NORMALS: Equal, round and reactive pupils present and EOMs intact bilaterally PUPIL: Yes Equal, round and reactive pupils present Neck/C-Spine: COMMON NORMALS: full ROM and supple Chest: COMMONS NORMALS: normal inspection of the chest and normal palpation of entire chest wall Resp: COMMON NORMALS: normal respiratory effort, No retractions, No use of accessory muscles and clear to auscultation bilaterally AUSCULTATION: clear to auscultation bilaterally Cardio: COMMON NORMALS: regular rate, regular rhythm and No murmurs present (Cardio) RATE: regular rate RHYTHM: regular rhythm GI: COMMON NORMALS: Normal to inspection, nondistended, normoactive bowel sounds present, Soft to palpation, non-tender and no masses PALPATION: Yes Soft to palpation Extremity: COMMON NORMALS: normal to inspection and full ROM Neuro: COMMON NORMALS: moves all extremities and no focal motor deficits; negative for patient oriented x3 SENSORIUM/ORIENTATION: Yes alert, Yes oriented to person, No oriented to place and No oriented to time Psych: COMMON NORMALS: cooperative; negative for mental status grossly normal APPEARANCE: Yes unkempt and Yes disheveled Skin: COMMON NORMALS: no rashes or lesions noted and no wounds GENERAL SKIN EXAM: no rashes or lesions noted Course Vital Signs: Vital signs: Vital Signs Temperature 99.7 F H 02/21/21 00:07 Pulse Rate 97 02/21/21 03:03 Respiratory Rate 30 H 02/21/21 00:07 Blood Pressure 128/57 02/21/21 03:03 Pulse Oximetry 95 02/21/21 03:03 MDM - Altered Mental Status MDM Narrative: Medical decision making narrative: Patient presents with pneumonia with altered mental status. Believe her altered male status is likely due to meth abuse. Patient's now hypoxia is well requiring oxygen. I spoke to the hospitalist and will admit at this time. She has no signs of meningitis. Head CT here is normal. Lab Data: Labs: Lab Results 02/21/21 02/21/21 02/21/21 Range/Units 00:55 00:55 00:55 WBC 8.8 (4.0-10.0) 10^3/ uL RBC 3.73 L (4.1-5.3) 10^6/u L Hgb 8.9 L (11.5-15.3) g/dL Hct 28.8 L (37.0-47.0) % MCV 77.2 L (81-99) fL MCH 23.9 L (28.0-34.0) pg MCHC 30.9 (30.0-36.0) g/dL RDW 23.1 H (12.1-15.1) % Plt Count 67 L (130-400) 10^3/c mm MPV 9.8 (7.4-10.4) fL Neut % (Auto) 73.6 % Lymph % (Auto) 12.5 % [place] % (Auto) 10.4 % Eos % (Auto) 0.1 % Baso % (Auto) 0.8 % Neut # (Auto) 6.45 (1.8-7.7) 10^3/u L Lymph # (Auto) 1.1 (0.8-4.8) 10^3/u L [place] # (Auto) 0.9 (0.2-0.9) 10^3/u L Eos # (Auto) 0.0 (0.0-0.8) 10^3/u L Baso # (Auto) 0.1 (0.0-0.1) 10^3/u L Nucleated RBC % (a uto) 0 % Nucleated RBCs # 0.0 /100WBC Sodium 138 (136-145) mmol/L Potassium 3.2 L (3.5-5.1) mmol/L Chloride 109 H (98-107) mmol/L Carbon Dioxide 16 L (22-29) mmol/L Anion Gap 16.2 (5-19) BUN 25 H (6-20) mg/dL Creatinine 0.8 (0.5-0.9) mg/dL GFR Calculation 79.4 L (90-130) mL/min Glucose 116 H (65-115) mg/dL Calculated Osmolal ity 291 (285-295) mOsm/k g Lactate 2.5 H (0.5-2.2) mmol/L Calcium 7.7 L (8.5-10.5) mg/dL Total Bilirubin 2.2 H (0.15-1.2) mg/dL AST 96 H (0-32) U/L ALT 39 H (0-33) U/L Alkaline Phosphata se 130 H (35-105) IU/L Total Protein 7.2 (6.6-8.7) g/dL Albumin 3.0 L (3.5-5.2) g/dL Globulin 4.2 (1.3-4.6) g/dL Urine Color (Yellow) Urine Appearance (CLEAR) Urine pH (5-7) Ur Specific Gravit y (1.005-1.030) Urine Protein (Negative) Urine Glucose (UA) (Normal) Urine Ketones (Negative) Urine Blood (Negative) Urine Nitrate (Negative) Urine Bilirubin (Negative) Urine Urobilinogen (Negative) mg/dL Ur Leukocyte Jody ase (Negative) Salicylates < 0.3 L (3-10) mg/dL Acetaminophen < 5.0 L (10-30) ug/mL Ethyl Alcohol < 10 (0-10) mg/dL SARS-CoV-2 Ag (Rap id) (Negative) 02/21/21 02/21/21 Range/Units 01:33 02:04 WBC (4.0-10.0) 10^3/ uL RBC (4.1-5.3) 10^6/u L Hgb (11.5-15.3) g/dL Hct (37.0-47.0) % MCV (81-99) fL MCH (28.0-34.0) pg MCHC (30.0-36.0) g/dL RDW (12.1-15.1) % Plt Count (130-400) 10^3/c mm MPV (7.4-10.4) fL Neut % (Auto) % Lymph % (Auto) % [place] % (Auto) % Eos % (Auto) % Baso % (Auto) % Neut # (Auto) (1.8-7.7) 10^3/u L Lymph # (Auto) (0.8-4.8) 10^3/u L [place] # (Auto) (0.2-0.9) 10^3/u L Eos # (Auto) (0.0-0.8) 10^3/u L Baso # (Auto) (0.0-0.1) 10^3/u L Nucleated RBC % (a uto) % Nucleated RBCs # /100WBC Sodium (136-145) mmol/L Potassium (3.5-5.1) mmol/L Chloride (98-107) mmol/L Carbon Dioxide (22-29) mmol/L Anion Gap (5-19) BUN (6-20) mg/dL Creatinine (0.5-0.9) mg/dL GFR Calculation (90-130) mL/min Glucose (65-115) mg/dL Calculated Osmolal ity (285-295) mOsm/k g Lactate (0.5-2.2) mmol/L Calcium (8.5-10.5) mg/dL Total Bilirubin (0.15-1.2) mg/dL AST (0-32) U/L ALT (0-33) U/L Alkaline Phosphata se (35-105) IU/L Total Protein (6.6-8.7) g/dL Albumin (3.5-5.2) g/dL Globulin (1.3-4.6) g/dL Urine Color Yellow (Yellow) Urine Appearance Clear (CLEAR) Urine pH 6 (5-7) Ur Specific Gravit y 1.015 (1.005-1.030) Urine Protein Neg (Negative) Urine Glucose (UA) Norm (Normal) Urine Ketones Negative (Negative) Urine Blood Neg (Negative) Urine Nitrate Negative (Negative) Urine Bilirubin 1+ H (Negative) Urine Urobilinogen 8 H (Negative) mg/dL Ur Leukocyte Jody ase Negative (Negative) Salicylates (3-10) mg/dL Acetaminophen (10-30) ug/mL Ethyl Alcohol (0-10) mg/dL SARS-CoV-2 Ag (Rap id) Negative (Negative) Imaging Data^: CT Head: Attestation: I personally reviewed and interpreted this imaging study as follows: Radiologist's impression: [place] [address] CT Scan Report Signed Patient: Gina Jay Unit #: [id number] : 1980 Age/Sex: 40 / F ADM Date: 02/21/21 Loc: ER Room/Bed: Attending Dr: Ordering Provider/Ordering MD: Farzaneh Main MD Date of Service: 02/21/21 Procedure(s): CT head wo con* [id number] Accession Number(s): [id number] Report Number: [id number] PROCEDURE INFORMATION: Exam: CT Head Without Contrast Exam date and time: 02/21/2021 12:17 AM Age: 40 years old Clinical indication: Altered mental status/memory loss; Patient HX: AMS. Possible drug overdose. Patient non compliant. Best scan obtained. TECHNIQUE: Imaging protocol: Computed tomography of the head without contrast. Radiation optimization: All CT scans at this facility use at least one of these dose optimization techniques: automated exposure control; mA and/or kV adjustment per patient size (includes targeted exams where dose is matched to clinical indication); or iterative reconstruction. COMPARISON: CT head wo con* [id number] 04/09/2020 6:58 AM RADIATION DOSE METRICS: Total DLP (mGy-cm): 1670.1 FINDINGS: Brain: No acute intracranial hemorrhage or mass effect. No definite acute infarct by CT. MRI could be more sensitive/specific for detection, as clinically directed. Cerebral ventricles: Ventricle size is normal for age. Paranasal sinuses: Included paranasal sinuses are essentially clear. Mastoid air cells: No significant acute finding. Bones/joints: No definite acute skull fracture. CT/CT head wo con* [id number] IMPRESSION: 1. No acute intracranial hemorrhage or mass effect. 2. No definite acute infarct by CT, see above. 3. Other findings discussed above. 4. Some limitations due to artifact from patient motion. Radiation Dose CTDIVOL = (mGy): DLP = 1670.1 (mGy-cm) Dictated By: Timo Desai MD Signed By: Timo Desai MD Signed Date/Time: 02/21/21 0130 DD/ 012 CXR: Radiologist's impression: [address] [place] [address] XRay Report Signed Patient: Gina Jay Unit #: [id number] : 1980 Age/Sex: 40 / F ADM Date: 02/21/21 Loc: ER Room/Bed: Attending Dr: Ordering Provider/Ordering MD: Farzaneh Main MD Date of Service: 02/21/21 Procedure(s): XR chest 1V portable [id number] Accession Number(s): [id number] Report Number: [id number] PROCEDURE INFORMATION: Exam: XR Chest Exam date and time: 02/21/2021 12:17 AM Age: 40 years old Clinical indication: Patient HX: AMS. Possible drug overdose. Unable to obtain history. TECHNIQUE: Imaging protocol: XR of the chest. Views: 1 view. COMPARISON: CR Chest 1 [place] [id number] 09/19/2017 11:11 AM FINDINGS: Lungs: No CHF/pulmonary edema. Poor inspiration somewhat limits evaluation, especially of the lung bases. Mild to moderate left lower lung opacities. Findings could represent atelectasis or pneumonitis. Please correlate clinically. Visible lungs otherwise appear essentially clear. Pleural spaces: No visible pneumothorax. No definite pleural fluid. Heart/Mediastinum: Heart size is within normal limits. Bones/joints: No significant acute finding. XR/XR chest 1V portable [id number] IMPRESSION: 1. Mild to moderate left lower lung opacities. Findings could represent atelectasis or pneumonitis. Please correlate clinically. 2. Other findings discussed above. Dictated By: Timo Desai MD Signed By: Timo Desai MD Signed Date/Time: 02/21/21132 DD/ 1 EKG Data^: EKG 1: Attestation: I personally reviewed and interpreted this EKG as follows: EKG interpretation date: 02/21/21 EKG interpretation time: 01:10 Interpretation: nsr hr [address] or t wave abnormalities qrs 102 qc 415 Discharge Plan Discharge Patient Disposition: Admitted As Inpatient Clinical Impression: Methamphetamine abuse, Altered mental status, Pneumonia Condition: Stable Coding Level of Care Code ED Business Services Analyst for Chg Fwd Exam Comprehensive
[2021-02-21] MEDS: acetaminophen 325 mg Tablet 650 MG PO ×3 (00:40→20:44)
[2021-02-21 01:24] LABS: Basophils # 0.1 10^3/uL (0.0-0.1); Basophils % 0.8 %; Eosinophils % 0.1 %; Hematocrit 28.8 % (37.0-47.0); Hemoglobin 8.9 g/dL (11.5-15.3); Lymphocytes # 1.1 10^3/uL (0.8-4.8); Lymphocytes % 12.5 %; Mean Corpuscular HGB Conc 30.9 g/dL (30.0-36.0); Mean Corpuscular Hemoglobin 23.9 pg (28.0-34.0); Mean Corpuscular Volume 77.2 fL (81-99); Mean Platelet Volume 9.8 fL (7.4-10.4); Monocytes # 0.9 10^3/uL (0.2-0.9); Monocytes % 10.4 %; Neutrophils # 6.45 10^3/uL (1.8-7.7); Neutrophils % 73.6 %; Nucleated Red Blood Cells % 0 %; Platelet Count 67 10^3/cmm (130-400); Red Blood Count 3.73 10^6/uL (4.1-5.3); Red Cell Distribution Width 23.1 % (12.1-15.1); White Blood Count 8.8 10^3/uL (4.0-10.0)
[2021-02-21 01:44] LABS: Lactate (Lactic Acid level) 2.5 mmol/L (0.5-2.2)
[2021-02-21 01:45] LABS: Alanine Aminotransferase 39 U/L (0-33); Alkaline Phosphatase 130 IU/L (35-105); Anion Gap 16.2 (5-19); Aspartate Amino Transferase 96 U/L (0-32); Blood Urea Nitrogen 25 mg/dL (6-20); Calcium 7.7 mg/dL (8.5-10.5); Carbon Dioxide 16 mmol/L (22-29); Chloride 109 mmol/L (98-107); Globulin 4.2 g/dL (1.3-4.6); Glomerular Filtration Rate 79.4 mL/min (90-130); Glucose 116 mg/dL (65-115); Osmolality Calculated 291 mOsm/kg (285-295); Potassium 3.2 mmol/L (3.5-5.1); Sodium 138 mmol/L (136-145); Total Bilirubin 2.2 mg/dL (0.15-1.2); Total Protein 7.2 g/dL (6.6-8.7)
[2021-02-21 01:47] LABS: Acetaminophen < 5.0 ug/mL (10-30); Alcohol Level < 10 mg/dL (0-10); Salicylate < 0.3 mg/dL (3-10)
[2021-02-21 01:56] LABS: Slide Review Slide Review Perform
[2021-02-21 02:15] LABS: SARS Covid-2 Antigen Negative (Negative)
[2021-02-21 02:32] LABS: Add Urine Microscopic? NO; Charge for UA Resulting for Rev
[2021-02-21] MEDS: cefTRIAXone 1,000 MG in sodium chloride 0.9% (plus) 50 ML 100 MG IV (02:56)
[2021-02-21 02:59] LABS: Bilirubin Urine 1+ (Negative); Blood Urine Neg (Negative); Glucose Urine UA Norm (Normal); Ketones Urine Negative (Negative); Leukocyte Esterase Urine Negative (Negative); Nitrate Urine Negative (Negative); Protein Urine Neg (Negative); Specific Gravity, Urine 1.015 (1.005-1.030); Urine Appearance Clear (CLEAR); Urine Color Yellow (Yellow); Urobilinogen Urine 8 mg/dL (Negative); pH Urine 6 (5-7)
[2021-02-21] MEDS: azithromycin 500 MG in sodium chloride 0.9% 250 ML 250 MG IV (03:29)
--- NOTE | 2021-02-21 05:24 | P.HP_ITS ---
Providers/Chief Complaint Admitting Physician: Rachel Haro Primary Care Provider: FARHAT Rivera Chief Complaint: POSSIBLE OVERDOSE History of Present Illness Gina Jay is a 40 year old female with a past medical history significant for diabetes mellitus, hypertension, hypothyroidism, and polysubstance abuse who was presented to the hospital with altered mental status. Patient was not cooperative at the time of my evaluation and was unable to provide any history. Per emergency room she was discharged after short admission for drug overdose. Laboratory work-up on arrival showed a WBC of 12.8, hemoglobin 9.4, hematocrit of 30.1 and platelet count of 72. Sodium 138, potassium 3.8, chloride 107, bicarb 18, BUN 23 and a creatinine of 1.0. AST over 35, ALT of 55, alkaline phosphatase of 179. Urinalysis showing 3+ leukocyte esterase no 100 WBCs. Positive for opioids, and vitamins, benzodiazepines and cannabis. COVID-19 antigen negative.Mild to moderate left lower lung opacities. Findings could represent atelectasis or pneumonitis. Review of Systems General: Reports: ROS unobtainable due to medical condition and ROS unobtainable due to mental status Medications/Allergies Home Medications Medication Instructions Recorded Confirmed Last Taken Type buprenorphine 8 mg-naloxone 2 mg 1 film SUBLINGUAL TID each 08/30/19 02/20/21 02/25/20 08:00 History sublingual film blood sugar diagnostic #100 ea 10/14/20 02/20/21 Unknown Rx lactulose 10 gram/15 mL oral See Rx Instructions .ROUTE 02/16/21 02/20/21 Unknown Rx solution .COMPLEX #630 milliliter Novolog Flexpen U-100 Insulin 10 unit SUBCUT TID 02/20/21 02/20/21 Unknown History ciprofloxacin HCl [Cipro] 500 mg PO BID #14 tab 02/20/21 Unknown Rx fluoxetine 80 mg PO DAILY 02/20/21 02/20/21 Unknown History furosemide 20 mg PO BID 02/20/21 02/20/21 Unknown History insulin glargine [Lantus Solostar 20 unit SUBCUT QAM 02/20/21 02/20/21 Unknown History U-100 Insulin] levothyroxine 100 mcg PO DAILY 02/20/21 02/20/21 Unknown History ondansetron HCl [Zofran] 4 mg PO Q6H PRN #15 tab 02/20/21 Unknown Rx propranolol 40 mg PO BID 02/20/21 02/20/21 Unknown History Allergies Allergy/AdvReac Type Severity Reaction Status Date / Time iodine Allergy Mild unknown Verified 09/24/20 14:12 Sulfa (Sulfonamide Allergy Mild rash Verified 09/24/20 14:12 Antibiotics) PFSH Acute PFSH: Medical History Abdominal pain Anxiety with depression Congestive heart failure Diabetes mellitus, type II FH: breast cancer in first degree relative H/O chronic hepatitis Hepatic encephalopathy Hypertension Hypothyroid Opiate dependence Vitamin D deficiency Yeast dermatitis Surgical History History of Social History Smoking and tobacco status: current every day smoker Second hand smoke exposure: No Smoking risk assessment/counseling performed?: No Alcohol intake: never Desire information about alcohol rehabilitation?: No Counseling given: No Desire information about substance/drug rehabilitation?: No Counseling given: No Vitals/I&O/Wt Last Vital Signs Temp 98.2 F 02/21/21 05:22 Pulse 91 02/21/21 05:22 Resp 20 H 02/21/21 05:22 BP 129/76 02/21/21 05:22 Pulse Ox 88 L 02/21/21 05:22 Weight last 48 hrs Weight 108.862 kg Physical Exam Narrative: EXAM NARRATIVE: Confused on HEENT: Grossly unremarkable CVS; NSR CHEST: Non-labored respiration ABD; Soft NT,ND Ext: No edema Data : 02/21/21 00:55 02/21/21 00:55 Micro: Microbiology 02/21/21 01:36 Blood Culture - Preliminary Blood SPECIMEN COLLECTED 02/21/21 00:55 Blood Culture - Preliminary Blood SPECIMEN COLLECTED A&P Assessment and plan (1) Urinary tract infection: Continue Rocephin Follow-up on final cultures Status: Acute (2) Methamphetamine abuse: Status: Acute (3) Altered mental status: Etiology multifactorial Check ammonia level in a.m. Status: Acute Additional A&P Information Verify home meds and resume Monitor for withdrawal Sliding scale insulin A.m. labs Attestations Medical Necessity Statement*: Anticipate over 2 midnight stay in hospital for evaluation and treatment Time Spent in Patient Care: Greater than 35 minutes (>than 50% of time sp ent in counselling and/or direct pt care on unit) . Coding Level of Care Code Acute Threader Operator for Lorri Chandler Diagnoses Urinary tract infection N39.0 Methamphetamine abuse F15.10 Altered mental status R41.82
[2021-02-21] MEDS: heparin 5,000 unit/mL INJ 1 mL 5000 UNIT SUBCUT (06:22)
[2021-02-21] MEDS: sodium chloride 0.9% 1,000 ML 75 ML IV ×2 (06:23→20:44)
[2021-02-21 11:04] LABS: Glucose Point of Care 216 mg/dL (70-110)
--- NOTE | 2021-02-21 11:32 | PC.PHAR ---
PT UNABLE TO CONFIRM MEDICATIONS. I WENT TO HER ROOM TWICE AND COULD NOT WAKE HER UP. I TRIED CALLING THE NAME ON PT'S CONTACT LIST, BUT WAS UNABLE TO CONTACT ANYONE. GOING BY MEDICATION HISTORY AND PHARMACY LIST.
--- NOTE | 2021-02-21 14:38 | PM.PN ---
Subjective Subjective: Interval history: Patient was seen and examined in the morning, was drowsy and very less communicative.was answering very less. Her other vitals and labs have been reviewed. Medications: Reviewed: Yes Vitals/I&O/Wt Last Vital Signs Temp 98.7 F 02/21/21 11:24 Pulse 68 02/21/21 11:24 Resp 21 H 02/21/21 11:24 BP 136/75 02/21/21 11:24 Pulse Ox 98 02/21/21 11:24 02/20/21 02/21/21 02/21/21 22:59 06:59 14:59 Intake Total 743.75 / 743.75 Balance 743.75 / 743.75 Weight last 48 hrs Weight 108.862 kg Physical Exam Const: EXAM LIMITATIONS: altered mental status GENERAL APPEARANCE: disheveled HENMT: COMMON NORMALS: normocephalic and atraumatic HEAD & SCALP: normocephalic and atraumatic Resp: COMMON NORMALS: clear to auscultation bilaterally AUSCULTATION: clear to auscultation bilaterally Cardio: COMMON NORMALS: regular rate, regular rhythm and No murmurs present (Cardio) RATE: regular rate RHYTHM: regular rhythm GI: COMMON NORMALS: Normal to inspection, nondistended, normoactive bowel sounds present, Soft to palpation, non-tender and no masses PALPATION: Yes Soft to palpation Psych: APPEARANCE: Yes unkempt and Yes disheveled Data : 02/22/21 06:44 02/22/21 06:44 Micro: Microbiology 02/21/21 01:36 Blood Culture - Preliminary Blood SPECIMEN COLLECTED 02/21/21 00:55 Blood Culture - Preliminary Blood SPECIMEN COLLECTED A&P Assessment and plan (1) Urinary tract infection: Continue Rocephin Follow-up on final cultures Status: Acute (2) Methamphetamine abuse: Status: Acute (3) Altered mental status: Etiology multifactorial Status: Acute Additional A&P Information Sliding scale insulin A.m. labs Attestations Medical Necessity Statement*: Patient needs to be in hospital for the management of acute encephalopathy. Coding Level of Care Code Acute Digital Publishing Specialist for Lorri Chandler Diagnoses Urinary tract infection N39.0 Methamphetamine abuse F15.10 Altered mental status R41.82
[2021-02-21 16:58] LABS: Glucose Point of Care 132 mg/dL (70-110)
[2021-02-21 21:10] LABS: Glucose Point of Care 140 mg/dL (70-110)
[2021-02-22] VITALS (83 sets, daily range): BP systolic 95–252; BP diastolic 53–157; PULSE 57–119; RESP 17–46; TEMP 36.4–37.7; O2SAT 63–100
[2021-02-22] MEDS: cefTRIAXone 1,000 MG in sodium chloride 0.9% (plus) 50 ML 100 MG IV (02:39)
[2021-02-22] MEDS: LORazepam 2 mg/mL INJ 1 mL 0.5 MG IVP (02:39)
[2021-02-22 02:53] LABS: ABG PCO2 32.5 mmHg (35-45); ABG PH Result 7.41 (7.35-7.45); Alveolar-Arterial Oxygen Gradi 40.7 mmHg (5-10); Arterial Blood Gas Hematocrit 29.3 % (37-47); Base Excess ABG -3.6 mmol/L (-2.0-2.0); Blood Gas Operator Identificat HARKR; Blood Gas Sample Site Brachial, right; Blood Gas Sample Type Arterial; Carboxyhemoglobin 1.1 %THgb (0.4-20.1); HCO3 ABG 20.5 mmol/L (22-26); HGB O2 Sat 92.3 % (95-100); Ionized Calcium Level - ABG 1.1 mmol/L (1.1-1.4); Methemoglobin 0.9 % (0.4-1.5); Oxygen Device BIPAP; Oxygen Saturation ABG 94.2; PO2 ABG 72.6 mmHg (80.0-100.0); Potassium Level - ABG 2.8 mmol/L (3.5-5.0); Total Hemoglobin 9.6 g/dL (12-16)
[2021-02-22 03:06] LABS: Basophils % 0.1 %; Eosinophils # 0.1 10^3/uL (0.0-0.8); Eosinophils % 0.8 %; Hematocrit 33.2 % (37.0-47.0); Hemoglobin 9.9 g/dL (11.5-15.3); Lymphocytes # 1.4 10^3/uL (0.8-4.8); Lymphocytes % 15.8 %; Mean Corpuscular HGB Conc 29.8 g/dL (30.0-36.0); Mean Corpuscular Hemoglobin 23.3 pg (28.0-34.0); Mean Corpuscular Volume 78.3 fL (81-99); Mean Platelet Volume 10.7 fL (7.4-10.4); Monocytes # 0.8 10^3/uL (0.2-0.9); Monocytes % 8.5 %; Neutrophils % 74.2 %; Nucleated Red Blood Cells % 0 %; Platelet Count 65 10^3/cmm (130-400); Red Blood Count 4.24 10^6/uL (4.1-5.3); Red Cell Distribution Width 23.9 % (12.1-15.1)
[2021-02-22 03:19] LABS: Lactic Sepsis W/Reflex 2.1 mmol/L (0.5-2.2)
[2021-02-22] MEDS: acetaminophen 325 mg Tablet 650 MG PO (03:21)
[2021-02-22 03:23] LABS: Alanine Aminotransferase 32 U/L (0-33); Albumin Level 2.5 g/dL (3.5-5.2); Alkaline Phosphatase 160 IU/L (35-105); Aspartate Amino Transferase 80 U/L (0-32); Blood Urea Nitrogen 16 mg/dL (6-20); Calcium 7.7 mg/dL (8.5-10.5); Carbon Dioxide 18 mmol/L (22-29); Chloride 108 mmol/L (98-107); Globulin 4.3 g/dL (1.3-4.6); Glomerular Filtration Rate 136.6 mL/min (90-130); Glucose 128 mg/dL (65-115); Osmolality Calculated 289 mOsm/kg (285-295); Sodium 138 mmol/L (136-145); Total Bilirubin 2.3 mg/dL (0.15-1.2); Total Protein 6.8 g/dL (6.6-8.7)
[2021-02-22 03:53] LABS: Procalcitonin 2.63 ng/mL (0-0.5)
[2021-02-22 03:58] LABS: Add RBC Morph Yes; Slide Review Slide Review Perform
[2021-02-22 03:59] LABS: Anisocytosis 2+; Burr Cells 2+; RBC Morph Comp No
[2021-02-22 04:02] LABS: Macrocytosis Trace; Ovalocytes Trace
[2021-02-22] MEDS: morphine 4 mg/mL SDV 1 mL 2 MG IVP (04:07)
[2021-02-22 04:37] LABS: Reflex Lactate Order REFLEX LACTIC ORDERD
[2021-02-22] MEDS: sodium chloride 0.9% 1,000 ML 75 ML IV ×2 (06:00→23:06)
[2021-02-22] MEDS: dexmedetomidine 400 MCG in sodium chloride 0.9% (100 ml) 100 ML IV (06:02)
--- NOTE | 2021-02-22 06:06 | PC.NURSE ---
Addendum entered by Kely Nina RN 02/22/21 06:10: precedex is running at mcg/kg/hr. Original Note: Received patient from Med surg floor. RN and RT at bedside. IV to left hand infiltrated, removed IV. 20G IV started to left shoulder x 1 attempt. Precedex started at 0.1mcg/kg/min as ordered per MD. Increased to 0.5mcg/kg/min as ordered per MD.Patient remains very anxious.
[2021-02-22] MEDS: midazolam 1 mg/mL INJ 2 mL 2 MG IVP ×2 (06:15→07:04)
--- NOTE | 2021-02-22 06:35 | XRR_ITS ---
PROCEDURE INFORMATION: Exam: XR Chest Exam date and time: 02/22/2021 6:35 AM Age: 40 years old Clinical indication: Device placement; Other: Et and ng placement; Additional info: Intuabtion TECHNIQUE: Imaging protocol: XR of the chest. Views: 1 view. COMPARISON: CR (CHEST, ) 02/21/2021 12:16 AM FINDINGS: Tubes, catheters and devices: Endotracheal tube, tip 4.3 cm above warner. Nasogastric tube, tip below diaphragm and off image. Lungs: Extensive mixed interstitial/alveolar opacities throughout the right lung, increased from prior study. Extensive mixed interstitial/alveolar opacities in the left mid lung and left lung base, increased from prior study. The findings may represent any combination of multifocal pneumonia, aspiration pneumonitis, and severe pulmonary edema. Pleural spaces: No visible pneumothorax or pleural effusion. Heart/Mediastinum: Heart size within normal limits. Bones/joints: No emergent findings identified. XR/XR chest 1V portable [id number] IMPRESSION: 1. Extensive mixed interstitial/alveolar opacities throughout the right lung, increased from prior study. Extensive mixed interstitial/alveolar opacities in the left mid lung and left lung base, increased from prior study. The findings may represent any combination of multifocal pneumonia, aspiration pneumonitis, and severe pulmonary edema. 2. Endotracheal tube, tip 4.3 cm above warner. 3. Nasogastric tube, tip below diaphragm and off image.
--- NOTE | 2021-02-22 07:00 | PC.NURSE ---
on vent noted agitated and restess o2 sats dropped to 68% removed from vent and started bagging at this time og in place heart monitor noted to have bigeminal pvcs noted at this time iv sedation propofol infusing and precedex gtt.. rt called and Dr Lopez
[2021-02-22] MEDS: propofol 1,000 MG/100 ML INJ 14.4 MG (07:08)
[2021-02-22] MEDS: rocuronium 10 mg/mL INJ 5mL 90 MG IV (07:09)
[2021-02-22] MEDS: lidocaine 1% 5 ML in potassium chloride premix 100 ML 25 ML IV (07:10)
--- NOTE | 2021-02-22 07:16 | PC.NURSE ---
Patient intubated by Dr Haro, tolerated well. O2 sats remain in the 80's. Propofol and precedex infusing. OG placed x 1 attempt, placement verified via auscultation and chest x-ray. ET tube placement verified via chest x-ray.
[2021-02-22 07:31] LABS: Basophils # 0.1 10^3/uL (0.0-0.1); Eosinophils % 0.2 %; Hematocrit 29.9 % (37.0-47.0); Hemoglobin 9.4 g/dL (11.5-15.3); Lymphocytes # 1.1 10^3/uL (0.8-4.8); Lymphocytes % 12.7 %; Mean Corpuscular HGB Conc 31.4 g/dL (30.0-36.0); Mean Corpuscular Hemoglobin 23.7 pg (28.0-34.0); Mean Corpuscular Volume 75.3 fL (81-99); Monocytes # 0.6 10^3/uL (0.2-0.9); Neutrophils # 7.04 10^3/uL (1.8-7.7); Neutrophils % 78.5 %; Nucleated Red Blood Cells % 0 %; Platelet Count 64 10^3/cmm (130-400); Positive M 1; Red Blood Count 3.97 10^6/uL (4.1-5.3); Red Cell Distribution Width 23.2 % (12.1-15.1)
[2021-02-22 07:55] LABS: Alanine Aminotransferase 30 U/L (0-33); Albumin Level 2.5 g/dL (3.5-5.2); Alkaline Phosphatase 158 IU/L (35-105); Aspartate Amino Transferase 68 U/L (0-32); Blood Urea Nitrogen 15 mg/dL (6-20); Calcium 7.6 mg/dL (8.5-10.5); Carbon Dioxide 19 mmol/L (22-29); Chloride 109 mmol/L (98-107); Globulin 4.1 g/dL (1.3-4.6); Glomerular Filtration Rate 136.6 mL/min (90-130); Glucose 140 mg/dL (65-115); Osmolality Calculated 291 mOsm/kg (285-295); Sodium 139 mmol/L (136-145); Total Bilirubin 2.4 mg/dL (0.15-1.2); Total Protein 6.6 g/dL (6.6-8.7)
[2021-02-22 07:59] LABS: Mean Platelet Volume 10.5 fL (7.4-10.4)
--- NOTE | 2021-02-22 08:21 | P.PN_ITS ---
Subjective Subjective: Interval history: Patient was seen and examined this morning continue to be Drowsy and less interactive. Vitals and labs have been reviewed. Medications: Reviewed: Yes Vitals/I&O/Wt Last Vital Signs Temp 97.6 F 03/07/21 11:11 Pulse 70 03/07/21 11:11 Resp 15 03/07/21 11:11 BP 135/71 03/07/21 11:11 Pulse Ox 96 03/07/21 11:11 Physical Exam Const: EXAM LIMITATIONS: altered mental status GENERAL APPEARANCE: disheveled HENMT: COMMON NORMALS: normocephalic and atraumatic HEAD & SCALP: normocephalic and atraumatic Resp: OTHER: Coarse, diminished air entry b/l Cardio: COMMON NORMALS: regular rate, regular rhythm, S1 normal heart sound present, S2 normal heart sound present, No gallops present (Cardio), No murmurs present (Cardio), No rub (Cardio) and Peripheral pulses 2+ throughout RATE: regular rate RHYTHM: regular rhythm HEART SOUNDS: S1 normal heart sound present and S2 normal heart sound present PERIPHERAL PULSES: Peripheral pulses 2+ throughout GI: COMMON NORMALS: Normal to inspection, nondistended, normoactive bowel sounds present, Soft to palpation, non-tender, No hepatosplenomegaly present and no masses AUSCULTATION: Yes normoactive bowel sounds PALPATION: Yes Soft to palpation and Yes No hepatosplenomegaly present RECTAL EXAM: deferred Extremity: COMMON NORMALS: no clubbing, cyanosis or edema and no pedal edema Psych: APPEARANCE: Yes unkempt and Yes disheveled Urinary Catheter Management^: [place]: Cath Placed During This Visit: yes, but has since been removed by the nurse Reason for Continuing Indwelling Catheter: Decision to DC Catheter Urinary Catheter Date of Insertion: 02/22/21 Urinary Catheter Time of Insertion: 09:00 Date Urinary Catheter Removed: 03/04/21 Time Urinary Catheter Discontinued: 10:00 Data : 03/06/21 04:55 03/07/21 06:30 A&P Assessment and plan (1) Polysubstance abuse: Psychiatry consultation obtained. Hydroxyzine added as needed. Additional A&P Information UTI : Continue Ceftriaxone. Follow Urine cutlure Polysubstance use : Will provide counselling once mentation improve. Ac Metabolic Encephalopathy : Multifactorail : Continue to monitor Attestations Medical Necessity Statement*: Patient needs to be in hospital for the manage ment of acute encephalopathy. Coding Level of Care Code Acute Chief Security Officer for Chg Fwd Diagnoses Polysubstance abuse F19.10
--- NOTE | 2021-02-22 08:40 | PC.NURSE ---
Dr Lopez here lasix given iv and also solumedrol given lovenox started remains very agitated and restless o2 sats remains decrased renteria inserted at this time starting to give paralytic and versed along with lior at this time started to prone pt after placed back on vent with peep increased fio2 at 100% prcxr pending
[2021-02-22] MEDS: FUROsemide 10 mg/mL SDV 4mL 40 MG IVP ×2 (08:58→17:43)
[2021-02-22] MEDS: enoxaparin 100 mg/mL Syringe SUBCUT (08:59)
[2021-02-22] MEDS: vancomycin 1,500 MG/300 ML PIGGYBACK 200 MG IV (09:04)
--- NOTE | 2021-02-22 10:20 | PC.NURSE ---
now pt prone at this time with a prone pillow in place biz monitor in place and monitor .. weaning up on versed and on fent.. also on nembex gtt with noted increase in o2 sats at this time.. ivf decreased at this time urine output increasing .. blood pressure decreased at this time
[2021-02-22] MEDS: cisatracurium 100 MG in sodium chloride 0.9% 50 ML IV (10:30)
--- NOTE | 2021-02-22 11:00 | PC.NURSE ---
now in prone position and sedated and on vent at this time .. oral care done now with o2 sat at 100 and blood pressure wnl . no further pvcs noted propfol off and precedex at 0.5 with fen gtt at 100 and versed now a 7mg biz monitor reading of 50 noted
[2021-02-22] MEDS: piperacillin-tazobactam 3.375 GM in sodium chloride 0.9% (plus) 50 ML IV ×3 (11:12→22:01)
[2021-02-22 11:21] LABS: Glucose Point of Care 179 mg/dL (70-110)
[2021-02-22 11:37] LABS: Glucose Point of Care 193 mg/dL (70-110)
[2021-02-22 13:07] LABS: ABG PCO2 33.2 mmHg (35-45); ABG PH Result 7.41 (7.35-7.45); Alveolar-Arterial Oxygen Gradi 50.6 mmHg (5-10); Arterial Blood Gas Hematocrit 30.8 % (37-47); Base Excess ABG -3.2 mmol/L (-2.0-2.0); Blood Gas Allen Test Pos; Blood Gas Operator Identificat GD; Blood Gas Sample Site Radial, left; Blood Gas Sample Type Arterial; Carboxyhemoglobin 0.8 %THgb (0.4-20.1); HCO3 ABG 20.9 mmol/L (22-26); HGB O2 Sat 98.5 % (95-100); Ionized Calcium Level - ABG 1.1 mmol/L (1.1-1.4); Oxygen Device VENT; Oxygen Saturation ABG > 100.0; Potassium Level - ABG 3.1 mmol/L (3.5-5.0)
--- NOTE | 2021-02-22 13:36 | PC.NURSE ---
abg done with decrease in vent setting at this time fio2 decreased to 50%
--- NOTE | 2021-02-22 14:00 | PC.NURSE ---
attempt to reposition at this time became agitatated and pulled out iv ect kicking in feet ..ect .. took long effort to get resedated at this time no cooperation per pt. at this time ..remains prone had to increase sedation for short time
[2021-02-22 14:54] LABS: Lactic Acid level (Lactate) 2.2 mmol/L (0.5-2.2)
[2021-02-22] MEDS: vancomycin 1,500 MG/300 ML PIGGYBACK 100 MG IV (17:21)
[2021-02-22 18:07] LABS: Glucose Point of Care 196 mg/dL (70-110)
[2021-02-22 21:51] LABS: Glucose Point of Care 183 mg/dL (70-110)
[2021-02-23] VITALS (79 sets, daily range): BP systolic 91–249; BP diastolic 52–185; PULSE 60–113; RESP 9–18; TEMP 36.5–36.7; O2SAT 85–99
[2021-02-23] MEDS: vancomycin 1,500 MG/300 ML PIGGYBACK 200 MG IV ×2 (01:05→07:49)
--- NOTE | 2021-02-23 01:06 | PM.PN ---
Subjective Subjective: Interval history: Patient was seen and examined this morning overnight she was extremely combative, as well as was acutely hypoxic failed BIPAP and had to be intubated as she was significantly desaturating. Medications: Reviewed: Yes Vitals/I&O/Wt Last Vital Signs Temp 97.7 F 02/23/21 00:00 Pulse 69 02/23/21 00:00 Resp 16 02/23/21 00:00 BP 114/64 02/23/21 00:00 Pulse Ox 95 02/23/21 00:00 02/22/21 02/22/21 02/23/21 14:59 22:59 06:59 Intake Total 636.034 / 442.677 4906.167 / 2038.201 Output Total 3600 / 3600 2200 / 5800 Balance -2963.966 / -2963.966 -797.833 / -3761.799 Physical Exam Narrative: EXAM NARRATIVE: Currently intubated sedated off sedation GCS :10T HENMT: COMMON NORMALS: normocephalic and atraumatic HEAD & SCALP: normocephalic and atraumatic Chest: CHEST: Yes Symmetrical chest wall rise Resp: OTHER: Coarse, diminished air entry b/l , b/l crackles Cardio: COMMON NORMALS: regular rate, regular rhythm, S1 normal heart sound present, S2 normal heart sound present, No gallops present (Cardio), No murmurs present (Cardio), No rub (Cardio) and Peripheral pulses 2+ throughout RATE: regular rate RHYTHM: regular rhythm HEART SOUNDS: S1 normal heart sound present and S2 normal heart sound present PERIPHERAL PULSES: Peripheral pulses 2+ throughout GI: COMMON NORMALS: Normal to inspection, nondistended, normoactive bowel sounds present, Soft to palpation, non-tender, No hepatosplenomegaly present and no masses AUSCULTATION: Yes normoactive bowel sounds PALPATION: Yes Soft to palpation and Yes No hepatosplenomegaly present RECTAL EXAM: deferred Extremity: COMMON NORMALS: no clubbing, cyanosis or edema and no pedal edema Urinary Catheter Management^: Boykin: Cath Placed During This Visit: yes Reason for Continuing Indwelling Catheter: Accurate Measurement of Urinary Output in Critically Ill Patients Urinary Catheter Date of Insertion: 02/22/21 Urinary Catheter Time of Insertion: 09:00 Data : 02/22/21 06:44 02/22/21 06:44 Micro: Microbiology 02/22/21 13:30 Bacterial Antigens - Final Urine,Voided 02/22/21 13:30 Legionella Urinary Antigen - Final Urine Catheterized 02/22/21 13:40 Blood Culture - Preliminary Blood SPECIMEN COLLECTED 02/22/21 13:45 Blood Culture - Preliminary Blood SPECIMEN COLLECTED 02/21/21 01:36 Blood Culture - Preliminary Blood Staphylococcus aureus 02/21/21 00:55 Blood Culture - Preliminary Blood Staphylococcus aureus A&P Assessment and plan (1) Respiratory failure with hypoxia: Acute hyoxic respiratory failure 2/2 to PNA ( r/o COVID/ P/E ) Xray chest : Extensive mixed interstitial/alveolar opacities throughout the right lung.Extensive mixed interstitial/alveolar opacities in the left mid lung and left lung base. Follow CTA Chest : COVID Rapid Antigen :Negative PCR:Pending Blood Culture : Staph Aures Follow repeat blood culture Urine legionella antigen :Negative Bacterial antigen panel :Negative Lactic acid : 2.5 Procalcitonin : 2.63 Follow 2 D Echo Monitor ABG Currently on Vancomycin and zosyn Solumedrol 60 mg I.V Q8H Intubated, sedated, paralysed and Prone ( Versed , Fentanyl, Precedex and nim) Has received a dose of therapeutic lovenox. Currently on Prophylactic lovenox. Lasix 40 mg I.V Q12 H DAILY Status: Acute (2) Sepsis: Sepsis 2/2 PNA plan as above Status: Acute (3) Metabolic encephalopathy: Ac Metabolic encephalopathy multifactorial ( Drug use, sepsis, hyoxia, uti ) C.T head without contrast ; No acute intracranial hemorrhage or mass effect. Status: Acute (4) Pneumonia: Status: Acute (5) Methamphetamine abuse: Status: Acute (6) Urinary tract infection: Status: Acute (7) Hypertension: Status: Acute Qualifiers: Hypertension type: essential hypertension Qualified Code(s): I10 - Essential (primary) hypertension (8) Hypothyroid: Status: Acute Qualifiers: Hypothyroidism type: acquired Qualified Code(s): E03.9 - Hypothyroidism, unspecified (9) Diabetes mellitus, type II: Status: Acute Attestations Medical Necessity Statement*: Patient needs to be in hospital for the management of Respiratory failure. Critical Care Time: The high probability of a clinically significant, sudden or life threatening deterioration of the patient's [] system(s) required my full and direct attention, intervention and personal management. The critical care time is as shown. 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
[2021-02-23] MEDS: piperacillin-tazobactam 3.375 GM in sodium chloride 0.9% (plus) 50 ML IV ×4 (04:17→22:21)
[2021-02-23 04:42] LABS: ABG PCO2 33.5 mmHg (35-45); ABG PH Result 7.42 (7.35-7.45); Alveolar-Arterial Oxygen Gradi 28.5 mmHg (5-10); Arterial Blood Gas Hematocrit 31.2 % (37-47); Base Excess ABG -2.2 mmol/L (-2.0-2.0); Blood Gas Allen Test Pos; Blood Gas Operator Identificat JB; Blood Gas Sample Site Radial, right; Blood Gas Sample Type Arterial; Carboxyhemoglobin 1.1 %THgb (0.4-20.1); HCO3 ABG 21.8 mmol/L (22-26); HGB O2 Sat 88.3 % (95-100); Ionized Calcium Level - ABG 1.2 mmol/L (1.1-1.4); Methemoglobin 0.8 % (0.4-1.5); Oxygen Device VENT; PO2 ABG 59.2 mmHg (80.0-100.0); Potassium Level - ABG 2.5 mmol/L (3.5-5.0); Total Hemoglobin 10.2 g/dL (12-16)
[2021-02-23] MEDS: FUROsemide 10 mg/mL SDV 4mL 40 MG IVP (05:54)
--- NOTE | 2021-02-23 06:00 | XR_ITS ---
WS: [id number] XR chest 1V portable [id number] REASON FOR EXAM: pneumonia FINDINGS: Compared to previous examination of 02/22/2021 there is decreasing density of the diffuse infiltrative changes in both lungs. Significant infiltrate persists which is predominantly in the central regions of the lungs. The endotracheal tube and nasogastric tube remain in position. No new findings. XR/XR chest 1V portable [id number] IMPRESSION: Improvement in the diffuse infiltrative processes in both lungs as above.
[2021-02-23] MEDS: potassium chloride premix 100 ML 25 MEQ IV (06:21)
[2021-02-23] MEDS: cisatracurium 100 MG in sodium chloride 0.9% 50 ML IV (06:45)
--- NOTE | 2021-02-23 06:47 | PC.NURSE ---
Patient remains sedated and paralysed. Remains in prone position on vent, with peep 12, R- 14 TV 400 and Fio2 50-65%, SPO2 88-91%. SR on monitor. Remains afebrile. Boykin remains in place, over 1L output overnight. Labs taken this am, potassium 2.5, Potassium 40Meq in 100mls infusing. Patient condition remains critical. Bath given. Care continues.
[2021-02-23 08:35] LABS: Glucose Point of Care 161 mg/dL (70-110)
[2021-02-23] MEDS: enoxaparin 40 mg/0.4 mL Syringe SUBCUT (08:47)
--- NOTE | 2021-02-23 09:03 | PC.NURSE ---
Pt versed, Fentanyl, and Nimbex gtt rates do not reflect rates that are charted in MAR. Reported drip rates correct compared to what pt is receiving. Rates corrected in chart to reflect what pt was receiving when taking over pt care. will monitor.
[2021-02-23 09:33] LABS: Basophils # 0.1 10^3/uL (0.0-0.1); Basophils % 0.9 %; Hematocrit 34.8 % (37.0-47.0); Hemoglobin 10.5 g/dL (11.5-15.3); Lymphocytes # 1.9 10^3/uL (0.8-4.8); Lymphocytes % 21.6 %; Mean Corpuscular HGB Conc 30.2 g/dL (30.0-36.0); Mean Corpuscular Hemoglobin 23.4 pg (28.0-34.0); Mean Corpuscular Volume 77.7 fL (81-99); Monocytes # 0.6 10^3/uL (0.2-0.9); Monocytes % 6.4 %; Neutrophils # 6.28 10^3/uL (1.8-7.7); Neutrophils % 70.2 %; Nucleated Red Blood Cells % 0 %; Platelet Count 64 10^3/cmm (130-400); Red Blood Count 4.48 10^6/uL (4.1-5.3); Red Cell Distribution Width 24.1 % (12.1-15.1); White Blood Count 8.9 10^3/uL (4.0-10.0)
[2021-02-23 09:35] LABS: INR 1.62 (0.8-1.2)
[2021-02-23 09:36] LABS: Fibrinogen 533 mg/dL (174-498); Partial Thromboplastin Time 35.1 SECONDS (23.9-36.7)
--- NOTE | 2021-02-23 09:37 | USCV_ITS ---
Gina Jay Age: 40 Gender: F : 1980 Exam Date: 02/23/2021 09:40 Ordering Phys: Seth Lopez MD Technologist: Exam Location: [facility] [place] Indication: SOB COVID BP: 129 / 76 HR: 68 Rhythm: Sinus Technical Quality: Adequate MEASUREMENTS (Male / Female) Normal Values 2D ECHO LV Diastolic Diameter PLAX 4.2 cm 4.2 - 5.9 / 3.9 - 5.3 cm LV Systolic Diameter PLAX 3.0 cm IVS Diastolic Thickness 1.3 cm 0.6 - 1.0 / 0.6 - 0.9 cm IVS Systolic Thickness 1.6 cm LVPW Diastolic Thickness 1.1 cm 0.6 - 1.0 / 0.6 - 0.9 cm LVPW Systolic Thickness 1.6 cm LVOT Diameter 2.7 cm LV Ejection Fraction 2D Teich 52.9 % LV Ejection Fraction MOD 2C 60.2 % LV Ejection Fraction 2C AL 60.9 % LA Diameter 3.6 cm LA Width 4.3 cm LA Height 4.4 cm RA Width 3.9 cm RA Height 4.2 cm M-MODE LV Diastolic Diameter MM 5.5 cm 4.2 - 5.9 / 3.9 - 5.3 cm LV Systolic Diameter MM 3.5 cm LV Ejection Fraction MM Teich 65.7 % IVS Diastolic Thickness MM 1.0 cm 0.6 - 1.0 / 0.6 - 0.9 cm IVS Systolic Thickness MM 1.3 cm LVPW Diastolic Thickness MM 1.2 cm 0.6 - 1.0 / 0.6 - 0.9 cm LVPW Systolic Thickness MM 2.2 cm RV Diastolic Diameter MM 1.3 cm MV E Point Septal Separation 1.2 cm DOPPLER AV Peak Velocity 120.0 cm/s LVOT Peak Velocity 105.0 cm/s AV Area Cont Eq vti 4.7 cm squared AV Area Cont Eq pk 5.1 cm squared MV Area PHT 5.0 cm squared Mitral E to A Ratio 0.9 MV E' Velocity 35.5 cm/s Mitral E to MV E' Ratio 6.7 Mitral E to LV E' Lateral Ratio 6.9 Mitral E to LV E' Septal Ratio 6.6 TR Peak Velocity 156.0 cm/s TR Peak Gradient 9.7 mmHg TV Peak E Velocity 54.0 cm/s Right Atrial Pressure 3.0 mmHg Pulmonary Artery Systolic Pressu 12.7 mmHg PV Peak Velocity 79.0 cm/s FINDINGS Left Ventricle Normal left ventricular size. Limited visualization. Grossly LV systolic function is normal Right Ventricle The right ventricle is normal in size and function. Right Atrium The right atrium is grossly normal in size Left Atrium The left atrium is grossly normal in size Mitral Valve Grossly normal Aortic Valve Not well visualized. No significant aortic stenosis. Tricuspid Valve Not well visualized Pulmonic Valve Not visualized Pericardium Normal pericardium without effusion. Aorta Normal ascending aorta dimension. CONCLUSIONS Technically limited quality echocardiogram because of poor ultrasonic windows. LV systolic function is grossly normal. Valvular structures are not well visualized however no significant abnormalities seen. No comparison studies are available Raz Kenney MD (Electronically Signed) Final Date: 23 February 2021 17:19 S
[2021-02-23 09:46] LABS: Alanine Aminotransferase 24 U/L (0-33); Albumin Level 2.2 g/dL (3.5-5.2); Alkaline Phosphatase 132 IU/L (35-105); Aspartate Amino Transferase 51 U/L (0-32); Blood Urea Nitrogen 24 mg/dL (6-20); C Reactive Protein 160.6 mg/L (0.0-4.9); Calcium 7.7 mg/dL (8.5-10.5); Carbon Dioxide 21 mmol/L (22-29); Chloride 109 mmol/L (98-107); Globulin 4.6 g/dL (1.3-4.6); Glomerular Filtration Rate 110.7 mL/min (90-130); Glucose 182 mg/dL (65-115); Magnesium 1.5 mg/dL (1.7-2.3); Osmolality Calculated 305 mOsm/kg (285-295); Sodium 143 mmol/L (136-145); Total Bilirubin 2.4 mg/dL (0.15-1.2); Total Protein 6.8 g/dL (6.6-8.7)
[2021-02-23 09:47] LABS: Anion Gap 15.8 (5-19); Lactate Dehydrogenase 307 U/L (135-214)
[2021-02-23 09:48] LABS: Potassium 2.8 mmol/L (3.5-5.1)
[2021-02-23 09:55] LABS: D Dimer 3.29 ug/mIFEU (0-0.59)
[2021-02-23 09:58] LABS: NT Pro B Type Natriuretic Pept 2719 pg/mL (0-125)
[2021-02-23] MEDS: propofol 1,000 MG/100 ML INJ 6.53 MG IV (10:29)
--- NOTE | 2021-02-23 10:51 | ECG_ITS ---
[facility] Test Date: 2021-02-23 Pat Name: Gina Jay Department: Room: [facility] Gender: Female [id number] Architect: : 1980 Requested By: Bob Glasgow Order Number: [id number] Bridget MD: Radha Sofia M.D. Measurements Intervals [place] Rate: 85 P: 60 NE: 131 QRS: 9 QRSD: 101 T: 12 QT: 403 QTc: 480 Interpretive Statements SINUS RHYTHM WITH FREQUENT VENTRICULAR PREMATURE COMPLEXES and NSVT's LOW QRS VOLTAGE IN PRECORDIAL LEADS [QRS DEFLECTION < 1.0 mV IN CHEST LEADS] ABNORMAL RHYTHM ECG Compared to ECG 02/21/2021 01:10:38 Ventricular premature complex(es) now present Low QRS voltage now present T-wave abnormality no longer present Electronically Signed On 02-23-2021 13:42:39 CDT by Radha Sofia M.D. [id number]
[2021-02-23 10:55] LABS: Thyroid Stimulating Hormone 0.78 uIU/mL (0.27-4.20)
[2021-02-23] MEDS: magnesium sulfate premix 2 GM/50 ML PIGGYBACK IV (10:55)
[2021-02-23 10:56] LABS: Procalcitonin 3.25 ng/mL (0-0.5)
[2021-02-23 11:00] LABS: Erythrocyte Sedimentation Rate 75 mm/hr (0-15)
[2021-02-23] MEDS: calcium chloride 10% Syr 10 mL 1 GM IVP (11:02)
[2021-02-23 11:07] LABS: Iron 29 ug/dL (37-145); Percent Saturation 12.8 % (20-50); Total Iron Binding Capacity 225 mcg/dl; Unsaturated Iron Binding 196 ug/dL (112-347)
[2021-02-23] MEDS: amiodarone 50 mg/mL SDV 3 mL 150 MG IVP ×2 (11:07)
[2021-02-23] MEDS: remdesivir 200 MG in sodium chloride 0.9% (100 ml) 100 ML 100 MG IV (11:08)
[2021-02-23] MEDS: sodium chloride 0.9% 1,000 ML 75 ML IV (11:11)
--- NOTE | 2021-02-23 11:17 | PC.NURSE ---
order to increase fentanyl to 150mcg noted per Dr. Glasgow
[2021-02-23] MEDS: lactulose oral liq 20 gm/30 mL UDC 10 GM PO ×3 (11:48→22:20)
[2021-02-23] MEDS: lidocaine 1% INJ 20 mL INTRADERMA (12:08)
[2021-02-23 12:16] LABS: Glucose Point of Care 199 mg/dL (70-110)
--- NOTE | 2021-02-23 12:31 | XR_ITS ---
WS: [id number] XR chest 1V portable [id number] REASON FOR EXAM: line placement FINDINGS: Compared to the examination of earlier this same day there has been placement of a trans right subcla vian central venous line. The tip is at the caval atrial junction. There is no pneumothorax. No other interval change noted. XR/XR chest 1V portable [id number] IMPRESSION: Right central line placement as above.
--- NOTE | 2021-02-23 13:01 | PM.ACPR ---
Procedure/Consent Time out: Time Out Performed: Yes Consent: Consent for Procedure: Emergency procedure Procedure Narrative: Name of the Procedure: Right subclavian Central venous catheter placement under ultrasound guidance. Indication: Frequent blood work, medication administration and possible need for vasopressor Anesthesiia: Lidocaine 1%, 5 ml Description of the procedure: The right subclavian vein was identified with the Ultrasound from collapsibility and lack of pulsatility. The site was prepared using sterile technique. The skin and subcuteneous tissue was anesthetized using lidocaine. The introducer needle was advanced under US guidance till flash back was noted. Dark, non pulsatile blood noted. Using seldinger technique the CVC was put in.Blood return was noted in all ports. Catheter was secured with suture and covered with transparent dressing. Complications: None X-ray: There is no pneumothorax. Acute Procedures Epistaxis Control: Time out performed: Yes
[2021-02-23 13:21] LABS: Ammonia 109 umol/L (11-51)
[2021-02-23] MEDS: propofol 1,000 MG/100 ML INJ 32.66 MG IV ×4 (14:00→22:20)
[2021-02-23 14:03] LABS: Coronavirus Test Green County Not Detected
[2021-02-23 16:27] LABS: Alveolar-Arterial Oxygen Gradi 78.4 mmHg (5-10); Arterial Blood Gas Hematocrit 29.9 % (37-47); Blood Gas Allen Test Pos; Blood Gas Operator Identificat GD; Blood Gas Sample Site Radial, left; Blood Gas Sample Type Arterial; Carboxyhemoglobin 1.1 %THgb (0.4-20.1); Methemoglobin 0.8 % (0.4-1.5); Oxygen Device VENT; Total Hemoglobin 9.8 g/dL (12-16)
--- NOTE | 2021-02-23 16:38 | PM.PN ---
Subjective Subjective: Interval history: Patient seen multiple times during the day. Hospital course, labs appreciated. During the day patient's COVID-19 PCR came back negative. Patient received central line. Patient remains on probation for over 24 hours and was made supine around 8 AM. At the start of the day it was difficult for sedation/paralyzing. During the day she was on propofol, Versed of 9, Nimbex of 0.8, fentanyl 150. Because of history of Suboxone 8 mg - 2 mg every 8 hourly there is a concern for patient going into withdrawal for which she was started on oral Suboxone through NG tube after which patient became calmer. And Versed was weaned down to 6, fentanyl was weaned down to 75 and Nimbex was stopped while patient remained well sedated on ventilator. During the day patient also had episodes of bigeminy with tachycardia for which she received magnesium, calcium and potassium supplementation along with bolus of 150 amiodarone. By around 6 PM patient is on propofol of 30, Versed of 3, fentanyl of 50, current ventilator support 100% FiO2,PEEP of 10, tidal volume of 400, rate of 14 with maps running around 70 and heart rate of 80 bpm. Vitals/I&O/Wt Last Vital Signs Temp 98.1 F 02/23/21 08:00 Pulse 88 02/23/21 14:00 Resp 16 02/23/21 12:52 BP 163/98 02/23/21 12:15 Pulse Ox 90 02/23/21 12:52 02/23/21 02/23/21 02/23/21 06:59 14:59 22:59 Intake Total 499.953 / 2538.154 1843.259 / 1843.259 161.060 / 2003.319 Output Total 1050 / 6850 1900 / 1900 Balance -550.047 / -4311.846 -56.741 / -56.741 161.060 / 104.319 Physical Exam Narrative: EXAM NARRATIVE: General: Sedated, ventilated, morbidly obese HEENT: PERRLA, pupils bilaterally equal and reactive Chest: Bilateral coarse crackles present more in the right middle and lower zone, left lower zone, equal good air entry bilaterally CVS: S1-S2 regular, no murmurs, no tachycardia, no gallops, no rubs Abdomen: Soft, nontender, no organomegaly, bowel sounds present Neuro: Sedated, ventilated, pupils bilaterally equal sluggishly reactive Urinary Catheter Management^: Boykin: Cath Placed During This Visit: yes Reason for Continuing Indwelling Catheter: Accurate Measurement of Urinary Output in Critically Ill Patients Urinary Catheter Date of Insertion: 02/22/21 Urinary Catheter Time of Insertion: 09:00 Data : 02/23/21 09:05 02/23/21 09:05 Micro: Microbiology 02/22/21 13:45 Blood Culture - Preliminary Blood NEGATIVE TO DATE 02/22/21 13:40 Blood Culture - Preliminary Blood NEGATIVE TO DATE 02/23/21 12:49 Blood Culture - Preliminary Blood SPECIMEN COLLECTED 02/21/21 01:36 Blood Culture - Preliminary Blood Staphylococcus aureus 02/21/21 00:55 Blood Culture - Preliminary Blood Staphylococcus aureus 02/23/21 09:05 Blood Culture - Preliminary Blood SPECIMEN COLLECTED 02/22/21 13:30 Bacterial Antigens - Final Urine,Voided 02/22/21 13:30 Legionella Urinary Antigen - Final Urine Catheterized A&P Assessment and plan (1) Respiratory failure with hypoxia: Status: Acute (2) Staphylococcus aureus bacteremia: Status: Acute (3) Sepsis: Status: Acute (4) Metabolic encephalopathy: Status: Acute (5) Polysubstance abuse: Status: Acute (6) Hepatic encephalopathy: Status: Acute (7) Urinary tract infection: Status: Acute (8) Pneumonia: Status: Acute (9) Diabetes mellitus, type II: Status: Acute (10) Hypertension: Status: Acute Qualifiers: Hypertension type: essential hypertension Qualified Code(s): I10 - Essential (primary) hypertension (11) Anxiety with depression: Status: Acute (12) Alcohol use disorder: Status: Acute (13) Acute hypokalemia: Status: Acute Additional A&P Information Severe sepsis: Staph bacteremia: Most likely secondary to pneumonia versus possible cellulitis and UTI. Urine culture positive for E. coli. Sensitivity appreciated. Keep mean arterial pressure over 65. Keep saturation over 90%. Continue with normal saline at 50 cc/h. Strict input output charting. Check blood culture, MRSA swab, urine Legionella, urine bacterial antigen, sputum culture. Blood culture from admission 3 out of 4 bottles positive for MRSA. For now continue with vancomycin, Zosyn. Vanco trough elevated. Hold off next vancomycin dose. Repeat Vanco random level client advocate and dose vancomycin accordingly. Target Vanco trough levels 15-20. Echocardiogram results appreciated. Poor echo window. We will consult cardiology for RENEE to rule out infective endocarditis. DuoNebs every 6 hour, budesonide twice daily. Repeat ABG in the evening. Check CTA to rule out PE and for better visualization of pneumonic patch. Patient has history of inhaling and continuing bath salt. Concern for pneumonitis. Continue with Solu-Medrol 60 mg every 6 hourly for now. Will do a quick taper. Consult manager of disaster recovery. Acute metabolic encephalopathy: Most likely secondary to severe sepsis along with withdrawal from polysubstance abuse and pain medications along with possible hepatic encephalopathy. We will plan to sedate with propofol and Precedex. Start on Suboxone through NG tube every 8 hourly for now will wean within next 24 hours to every 12 hourly. As patient is on Suboxone stop fentanyl gradually. CT head from admission negative for any acute abnormality. Check ammonia levels. Start patient on lactulose every 6 hourly until his patient started having 2-3 soft bowel movements a day. Transaminitis: Most likely from severe sepsis along with history of hepatitis C. Check hep C RNA level, HIV, LDH, liver ultrasound. Check HbA1c, lipid panel, TSH, iron panel, ferritin. Replete electrolytes. Full code. Lovenox will help with DVT prophylaxis. NPO. Protonix OPD prophylaxis. Severely guarded prognosis. We will change treatment plan as per the results. Attestations Medical Necessity Statement*: Patient requires further hospitalization for management of severe sepsis, Staphylococcus bacteremia, acute metabolic encephalopathy secondary to withdrawal from polysubstance abuse, ventilator dependent Critical Care Time: The high probability of a clinically significant, sudden or life threatening deterioration of the patient's [respiratory, cardiac, ID] system(s) required my full and direct attention, intervention and personal management. The critical care time is as shown. This time is in addition to time spent performing any reported procedures but includes the following: [x] Data and vital sign review and interpretation [x] Patient assessment, examination and intervention [x] Documentation [x] Medication orders and management Critical Care Time (min): 100 Coding Level of Care Code Acute Technical Support Consultant for [facility] Fwd Diagnoses Respiratory failure with hypoxia J96.91 Staphylococcus aureus bacteremia R78.81; B95.61 Sepsis A41.9 Metabolic encephalopathy G93.41 Polysubstance abuse F19.10 Hepatic encephalopathy K72.90 Urinary tract infection N39.0 Pneumonia J18.9 Diabetes mellitus, type II E11.9 Hypertension I10 Hypertension type: essential hypertension Anxiety with depression F41.8 Alcohol use disorder Acute hypokalemia E87.6
--- NOTE | 2021-02-23 16:53 | PC.RESP ---
Smoking Cessation information sent to patient.
[2021-02-23 17:00] LABS: ABG PH Result 7.39 (7.35-7.45); PO2 ABG 64.1 mmHg (80.0-100.0)
[2021-02-23 17:01] LABS: Base Excess ABG -3.6 mmol/L (-2.0-2.0); Blood Gas Allen Test pos; Oxygen Device vent; Oxygen Saturation ABG 90.8
[2021-02-23 17:02] LABS: Alveolar-Arterial Oxygen Gradi 587.8 mmHg (5-10); Arterial Blood Gas Hematocrit 29.9 % (37-47); Blood Gas Sample Site rr; Blood Gas Sample Type art; Ionized Calcium Level - ABG 1.2 mmol/L (1.1-1.4); Total Hemoglobin 9.8 g/dL (12-16)
[2021-02-23 17:03] LABS: Carboxyhemoglobin 1.1 %THgb (0.4-20.1); Methemoglobin 0.8 % (0.4-1.5)
[2021-02-23 17:06] LABS: Glucose Point of Care 186 mg/dL (70-110)
[2021-02-23 17:07] LABS: Vancomycin Trough 38.1 ug/mL (10-15)
[2021-02-23] MEDS: sodium chloride 0.9% 1,000 ML 50 ML IV (17:31)
--- NOTE | 2021-02-23 17:43 | PC.NURSE ---
called to bring pt to CT. At this time, they are scanning covid pt's. will notify us when CT room is clean and available.
[2021-02-23 20:25] LABS: Glucose Point of Care 180 mg/dL (70-110)
[2021-02-24] VITALS (100 sets, daily range): BP systolic 92–140; BP diastolic 43–76; PULSE 54–82; RESP 16–20; TEMP 34.2–36.8; O2SAT 90–98
[2021-02-24] MEDS: propofol 1,000 MG/100 ML INJ 32.66 MG IV ×3 (01:24→08:04)
--- NOTE | 2021-02-24 02:42 | PC.NURSE ---
Addendum entered by Tracie Hannon RN 02/24/21 02:44: Medications wasted with this nurse to verify. Original Note: Wasted 82.252 mLs of Fentanly Waseted 55.65 Midazolam witnessed by Tracie PURCELL
[2021-02-24] MEDS: diphenhydrAMINE 50 mg/mL SDV 1mL IVP (03:34)
[2021-02-24] MEDS: acetaminophen 325 mg Tablet 650 MG PO (03:34)
[2021-02-24] MEDS: lactulose oral liq 20 gm/30 mL UDC 10 GM PO ×4 (05:13→21:30)
[2021-02-24] MEDS: piperacillin-tazobactam 3.375 GM in sodium chloride 0.9% (plus) 50 ML IV (05:13)
[2021-02-24 05:23] LABS: ABG PCO2 35.8 mmHg (35-45); ABG PH Result 7.39 (7.35-7.45); Alveolar-Arterial Oxygen Gradi 77.4 mmHg (5-10); Arterial Blood Gas Hematocrit 31.8 % (37-47); Base Excess ABG -2.9 mmol/L (-2.0-2.0); Blood Gas Sample Site Brachial, right; Blood Gas Sample Type Arterial; Carboxyhemoglobin 0.8 %THgb (0.4-20.1); HCO3 ABG 21.6 mmol/L (22-26); HGB O2 Sat 91.6 % (95-100); Ionized Calcium Level - ABG 1.3 mmol/L (1.1-1.4); Oxygen Device VENT; Oxygen Saturation ABG 93.3; PO2 ABG 72.4 mmHg (80.0-100.0); Potassium Level - ABG 2.5 mmol/L (3.5-5.0); Total Hemoglobin 10.4 g/dL (12-16)
--- NOTE | 2021-02-24 06:00 | XR_ITS ---
WS: [id number] XR chest 1V portable [id number] REASON FOR EXAM: covid FINDINGS: Endotracheal tube and nasogastric tube remain in position as does the right subclavian central venous line. The lungs are hypoexpanded with nonspecific consolidation in the right lower lung. There is consolidation in the left lower lung with presumed left pleural effusion. The chest is not c hanged significantly compared to the previous day. XR/XR chest 1V portable [id number] IMPRESSION: Stable abnormal chest as above.
[2021-02-24 06:26] LABS: Basophils % 0.4 %; Hemoglobin 9.3 g/dL (11.5-15.3); Lymphocytes # 1.6 10^3/uL (0.8-4.8); Lymphocytes % 23.1 %; Mean Corpuscular Hemoglobin 23.6 pg (28.0-34.0); Mean Corpuscular Volume 76.1 fL (81-99); Monocytes # 0.4 10^3/uL (0.2-0.9); Monocytes % 5.2 %; Neutrophils # 4.79 10^3/uL (1.8-7.7); Neutrophils % 69.8 %; Nucleated Red Blood Cells % 0.3 %; Platelet Count 67 10^3/cmm (130-400); Red Blood Count 3.94 10^6/uL (4.1-5.3); Red Cell Distribution Width 23.8 % (12.1-15.1); White Blood Count 6.9 10^3/uL (4.0-10.0)
[2021-02-24 06:45] LABS: Alanine Aminotransferase 21 U/L (0-33); Albumin Level 2.2 g/dL (3.5-5.2); Alkaline Phosphatase 131 IU/L (35-105); Anion Gap 12.6 (5-19); Aspartate Amino Transferase 40 U/L (0-32); Blood Urea Nitrogen 31 mg/dL (6-20); Calcium 8.1 mg/dL (8.5-10.5); Carbon Dioxide 21 mmol/L (22-29); Chloride 114 mmol/L (98-107); Globulin 4.3 g/dL (1.3-4.6); Glomerular Filtration Rate 110.7 mL/min (90-130); Glucose 199 mg/dL (65-115); Osmolality Calculated 312 mOsm/kg (285-295); Sodium 145 mmol/L (136-145); Total Bilirubin 2.2 mg/dL (0.15-1.2); Total Protein 6.5 g/dL (6.6-8.7)
[2021-02-24 06:46] LABS: Vancomycin Random 12.1 ug/mL (20.0-40.0)
[2021-02-24 06:47] LABS: Estmated Average Glucose 154
[2021-02-24 06:53] LABS: NT Pro B Type Natriuretic Pept 1153 pg/mL (0-125)
[2021-02-24 06:54] LABS: Potassium 2.6 mmol/L (3.5-5.1)
[2021-02-24 07:30] LABS: Slide Review Slide Review Perform
[2021-02-24 07:52] LABS: HIV 1 & 2 Antibody Non-Reactive (Non-Reactiv); HIV 1 & 2 Antigen Non-Reactive (Non-Reactiv)
[2021-02-24] MEDS: lidocaine 1% 5 ML in potassium chloride premix 100 ML 25 ML IV ×2 (08:05→11:32)
[2021-02-24] MEDS: levothyroxine 100 mcg Tablet PO (08:06)
[2021-02-24] MEDS: enoxaparin 40 mg/0.4 mL Syringe SUBCUT (08:06)
--- NOTE | 2021-02-24 08:09 | P.CONIM_ITS ---
Providers/Reason For Consult Consulting Physician/Specialty*: Latrice Frias MD/Infectious Disease Reason for Consult*: MSSA septicemia Attending Physician: Bob Glasgow MD Primary Care Provider: FARHAT Rivera History of Present Illness History of Present Illness Gina Jay is a 40 year old female with past medical history as outlined below, significantly diabetes mellitus, polysubstance abuse who was admitted to the hospital on February 21, 2021 with altered mental status. U tox was positive for opiates. chest x-ray showed mild to moderate left lower lung opacities. She continued to have increasing oxygen requirements during course of admission, initially on BiPAP, then became increasingly agitated and combative and therefore was eventually intubated on February 22, 2021. Blood cultures from admission returned positive for MSSA. Covid pneumonia was ruled out with a negative antigen and PCR test. She has been on antibiotic treatment with vancomycin and Zosyn at this time. No history is currently available from the patient as she is intubated and sedated. Review of Systems General: Reports: ROS unobtainable due to medical condition Meds/Allergies Home Medications and Allergies Home Medications Medication Instructions Recorded Confirmed Last Taken Type buprenorphine 8 mg-naloxone 2 mg 1 film SUBLINGUAL TID each 08/30/19 02/21/21 02/25/20 08:00 History sublingual film blood sugar diagnostic #100 ea 10/14/20 02/21/21 Unknown Rx lactulose 10 gram/15 mL oral See Rx Instructions .ROUTE 02/16/21 02/21/21 Unknown Rx solution .COMPLEX #630 milliliter ciprofloxacin HCl [Cipro] 500 mg PO BID #14 tab 02/20/21 02/21/21 Unknown Rx fluoxetine 80 mg PO DAILY 02/20/21 02/21/21 Unknown History furosemide 20 mg PO BID 02/20/21 02/21/21 Unknown History insulin aspart U-100 [Novolog 10 unit SUBCUT TID 02/20/21 02/21/21 Unknown History Flexpen U-100 Insulin] insulin glargine [Lantus Solostar 20 unit SUBCUT QAM 02/20/21 02/21/21 Unknown History U-100 Insulin] levothyroxine 100 mcg PO DAILY 02/20/21 02/21/21 Unknown History ondansetron HCl [Zofran] 4 mg PO Q6H PRN #15 tab 02/20/21 02/21/21 Unknown Rx propranolol 40 mg PO BID 02/20/21 02/21/21 Unknown History prenat.vits,andrew,[id number] 1 tab PO DAILY 02/21/21 02/21/21 02/20/21 History [ Plus] Allergies Allergy/AdvReac Type Severity Reaction Status Date / Time iodine Allergy Mild unknown Verified 09/24/20 14:12 Sulfa (Sulfonamide Allergy Mild rash Verified 09/24/20 14:12 Antibiotics) Current Medications Current Medications Generic Name Dose Route Start Last Admin Trade Name Freq PRN Reason Stop Dose Admin Acetaminophen 650 mg 02/21/21 05:32 02/24/21 03:34 Acetaminophen 325 Mg Tablet PO 650 mg Q6H PRN Administration Mild/Mod Pain Or Temp >/= 101 Enoxaparin Sodium 40 mg 02/23/21 09:00 02/24/21 08:06 Enoxaparin 40 Mg/0.4 Ml Syringe SUBCUT 40 mg Q24H LEILA Administration Furosemide 40 mg 02/22/21 18:00 02/23/21 05:54 Furosemide 10 Mg/Ml Sdv 4ml IVP 40 mg Q12H LEILA Administration Dexmedetomidine HCl 400 mcg/ 104 mls @ 0 mls/hr 02/22/21 04:00 02/23/21 06:45 Sodium Chloride IV Infused .Q0M LEILA Titration Protocol Per Protocol Midazolam HCl 100 mg/ Sodium 100 mls @ 0 mls/hr 02/22/21 08:15 02/24/21 02:41 Chloride IV Infused .Q0M LEILA Titration Protocol Per Protocol Fentanyl 1,000 mcg/ Sodium 100 mls @ 0 mls/hr 02/22/21 08:15 02/24/21 02:41 Chloride IV Infused .Q0M LEILA Titration Protocol Per Protocol Propofol 1,000 mg in 100 mls @ 0 mls/hr 02/22/21 08:30 02/24/21 08:04 Diprivan IV 50 mcg/kg/min .Q0M LEILA 32.66 mls/hr Administration Protocol Per Protocol Sodium Chloride 1,000 mls @ 50 mls/hr 02/23/21 17:30 02/23/21 17:31 Sodium Chloride 0.9% IV 50 mls/hr .Q20H LEILA Administration Lidocaine HCl 5 ml/ Potassium 105 mls @ 25 mls/hr 02/24/21 09:00 02/24/21 08:05 Chloride IV 02/24/21 16:59 25 mls/hr Q4H LEILA Administration Insulin Aspart 0 unit 02/23/21 21:45 02/24/21 08:04 Insulin Aspart 100 Unit/1 Ml SUBCUT 4 unit Q6H LEILA Administration Protocol Lactulose 10 gm 02/23/21 10:30 02/24/21 05:13 Lactulose Oral Liq 20 Gm/30 Ml Udc PO 10 gm Q6H LEILA Administration Levothyroxine Sodium 100 mcg 02/24/21 09:00 02/24/21 08:06 Levothyroxine 100 Mcg Tablet PO 100 mcg DAILY LEILA Administration Methylprednisolone Sodium Succinate 60 mg 02/23/21 21:45 02/24/21 05:13 Methylprednisolone Sod Succ 125 Mg/2 Ml Inj IVP 60 mg Q8H LEILA Administration Non-Formulary 1 each 02/23/21 12:00 02/24/21 08:05 Medication (Suboxone NG-TUBE 1 each 8-2 Mg Tablets) TID LEILA Administration PFSH Acute PFSH: Medical History Abdominal pain Anxiety with depression Cholelithiasis Congestive heart failure Cystitis Diabetes mellitus, type II Drug-induced psychotic disorder FH: breast cancer in first degree relative H/O chronic hepatitis Hepatic encephalopathy Hypertension Hypothyroid Opiate dependence 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 Vitamin D deficiency Yeast dermatitis Surgical History History of Social History Smoking and tobacco status: current every day smoker Second hand smoke exposure: No Smoking risk assessment/counseling performed?: No Alcohol intake: never Desire information about alcohol rehabilitation?: No Counseling given: No Desire information about substance/drug rehabilitation?: No Counseling given: No Vitals/I&O/Wt Last Vital Signs Temp 93.6 F L 02/24/21 06:38 Pulse 56 L 02/24/21 06:15 Resp 18 02/24/21 06:09 BP 100/57 02/24/21 06:15 Pulse Ox 97 02/24/21 06:15 02/23/21 02/24/21 02/24/21 22:59 06:59 14:59 Intake Total 1024.0269 / 2867.2859 350 / 3217.2859 100 / 100 Output Total 1999 / 3900 600 / 4500 Balance -975.9731 / -1032.7141 -250 / -1282.7141 100 / 100 Physical Exam Narrative: EXAM NARRATIVE: GEN: Intubated, sedated CVS: S1S2 N RS: CTA B/L Abd: Soft, nt/nd , bs+ DIESEL ROLLER OPERATOR: unable to assess Urinary Catheter Management^: Boykin: Cath Placed During This Visit: yes Reason for Continuing Indwelling Catheter: Accurate Measurement of Urinary Output in Critically Ill Patients Urinary Catheter Date of Insertion: 02/22/21 Urinary Catheter Time of Insertion: 09:00 Data Micro: Micro: Microbiology 02/23/21 10:45 MRSA Culture - Fin al Nose 02/22/21 13:45 Blood Culture - Pr eliminary Blood NEGATIVE TO FAY E 02/22/21 13:40 Blood Culture - Pr eliminary Blood NEGATIVE TO FAY E 02/23/21 12:49 Blood Culture - Pr eliminary Blood SPECIMEN [facility] 02/21/21 01:36 Blood Culture - Pr eliminary Blood Staphylococcus aureus/MSSA 02/21/21 00:55 Blood Culture - Pr eliminary Blood Staphylococcus aureus/ MSSA 02/23/21 09:05 Blood Culture - Pr eliminary Blood SPECIMEN [facility] A&P Assessment and plan (1) Septicemia: Status: Acute (2) Polysubstance abuse: Status: Acute (3) Respiratory failure with hypoxia: Status: Acute Qualifiers: Chronicity: acute Qualified Code(s): J96.01 - Acute respiratory failure with hypoxia (4) Pneumonia: Status: Acute Qualifiers: Pneumonia type: due to methicillin-sensitive Staphylococcus aureus (MSSA) Laterality: bilateral Lung location: unspecified part of lung Qualified Code(s): J15.211 - Pneumonia due to Methicillin susceptible Staphylococcus aureus Additional A&P Information 40-year-old presenting with altered mental status, acute hypoxic respiratory failure, blood cultures positive for MSSA. Overall picture consistent with MSSA septicemia, high suspicion for infectious endocarditis Discontinue Zosyn and vancomycin Change antibiotics to cefazolin 2 g IV every 8 hours. If concern for aspiration pneumonia, can use an additional 2 days of IV Flagyl in addition. CT chest with bilateral infiltrates, likely to be septic embolization Pending CTA for further characterization, currently on 100% FiO2 on the vent Blood culture subsequently negative since 02/22. Recommend RENEE will follow Coding Level of Care Code Acute Patient Care Associate for g Fwd Diagnoses Septicemia A41.9 Polysubstance abuse F19.10 Respiratory failure with hypoxia J96.01 Chronicity: acute Pneumonia J15.211 Pneumonia type: due to methicillin-sensitive Staphylococcus aureus (MSSA) Laterality: bilateral Lung location: unspecified part of lung
[2021-02-24 08:13] LABS: Glucose Point of Care 188 mg/dL (70-110)
[2021-02-24] MEDS: metroNIDAZOLE IV 500 MG/100 ML PREMIX 100 MG IV ×2 (08:29→15:53)
--- NOTE | 2021-02-24 08:29 | ECG_ITS ---
[facility] Test Date: 2021-02-24 Pat Name: Gina Jay Department: Room: [facility] Gender: Female Manager Resort: [place]: 1980 Requested By: Bob Glasgow Order Number: [id number] Bridget MD: Raz Kenney M.D. Measurements Intervals [place] Rate: 55 P: -16 CA: 151 QRS: -9 QRSD: 114 T: -13 QT: 456 QTc: 439 Interpretive Statements SINUS BRADYCARDIA MODERATE INTRAVENTRICULAR CONDUCTION DELAY [110+ ms QRS DURATION] NONSPECIFIC T-WAVE ABNORMALITY Compared to ECG 02/23/2021 10:55:16 Intraventricular conduction delay now present T-wave abnormality now present Sinus rhythm no longer present Ventricular premature complex(es) no longer present Electronically Signed On 02-24-2021 14:55:19 CDT by Raz Kenney M.D. [id number]
--- NOTE | 2021-02-24 08:31 | PM.PN ---
Subjective Subjective: Interval history: No acute events overnight. Sedated and intubated with propofol running at 20. On exam patient is hypothermic requiring bear hugger and bradycardic in high 50s which improved after dose of Suboxone was held. Has remained hemodynamically stable, documented urine output in last 24 hr around 4.5L. Tmax in last 24 hr afebrile. Medications: Reviewed: Yes Vitals/I&O/Wt Last Vital Signs Temp 93.6 F L 02/24/21 06:38 Pulse 56 L 02/24/21 06:15 Resp 18 02/24/21 06:09 BP 100/57 02/24/21 06:15 Pulse Ox 97 02/24/21 06:15 02/23/21 02/24/21 02/24/21 22:59 06:59 14:59 Intake Total 1024.0269 / 2867.2859 350 / 3217.2859 100 / 100 Output Total 2000 / 3900 600 / 4500 Balance -975.9731 / -1032.7141 -250 / -1282.7141 100 / 100 Physical Exam Narrative: EXAM NARRATIVE: General: Sedated, ventilated, morbidly obese, multiple excoriation present all over the body. HEENT: PERRLA, pupils bilaterally equal and reactive Chest: Bilateral coarse crackles present more in the right middle and lower zone, left lower zone, equal good air entry bilaterally CVS: S1-S2 regular, no murmurs, no tachycardia, no gallops, no rubs Abdomen: Soft, nontender, no organomegaly, bowel sounds present Neuro: Sedated, ventilated, pupils bilaterally equal sluggishly reactive Urinary Catheter Management^: Boykin: Cath Placed During This Visit: yes Reason for Continuing Indwelling Catheter: Accurate Measurement of Urinary Output in Critically Ill Patients Urinary Catheter Date of Insertion: 02/22/21 Urinary Catheter Time of Insertion: 09:00 Data : 02/24/21 06:13 02/24/21 06:13 Micro: Microbiology 02/23/21 10:45 MRSA Culture - Final Nose 02/22/21 13:45 Blood Culture - Preliminary Blood NEGATIVE TO DATE 02/22/21 13:40 Blood Culture - Preliminary Blood NEGATIVE TO DATE 02/23/21 12:49 Blood Culture - Preliminary Blood SPECIMEN COLLECTED 02/21/21 01:36 Blood Culture - Preliminary Blood Staphylococcus aureus 02/21/21 00:55 Blood Culture - Preliminary Blood Staphylococcus aureus 02/23/21 09:05 Blood Culture - Preliminary Blood SPECIMEN COLLECTED A&P Assessment and plan (1) Staphylococcus aureus bacteremia: Status: Acute (2) Septicemia: Status: Acute (3) Polysubstance abuse: Status: Acute (4) Respiratory failure with hypoxia: Status: Acute Qualifiers: Chronicity: acute Qualified Code(s): J96.01 - Acute respiratory failure with hypoxia (5) Pneumonia: Status: Acute Qualifiers: Laterality: bilateral Lung location: unspecified part of lung Pneumonia type: due to methicillin-sensitive Staphylococcus aureus (MSSA) Qualified Code(s): J15.211 - Pneumonia due to Methicillin susceptible Staphylococcus aureus (6) Metabolic encephalopathy: Status: Acute (7) E-coli UTI: Status: Acute (8) Methamphetamine abuse: Status: Acute (9) Alcohol use disorder: Status: Acute (10) Diabetes mellitus, type II: Status: Acute Qualifiers: Diabetes mellitus complication status: with other specified complication Diabetes mellitus long term care social worker insulin use: unspecified long term care social worker insulin use status Qualified Code(s): E11.69 - Type 2 diabetes mellitus with other specified complication (11) Hypertension: Status: Acute Qualifiers: Hypertension type: essential hypertension Qualified Code(s): I10 - Essential (primary) hypertension (12) Anxiety with depression: Status: Acute Additional A&P Information Severe sepsis: MSSA bacteremia: Most likely secondary to pneumonia and UTI. Urine culture positive for E. coli. Sensitivity appreciated. Keep mean arterial pressure over 65. Keep saturation over 90%. Continue with normal saline at 50 cc/h. Strict input output charting. Appreciate ID and Pulm recommendations. MRSA negative, Urine Legionella, bacterial antigen negative. Repeat Bcx negative so far. Sputum Cx appreciated. Abx changed as per ID. Vanc, Zosyn stopped. Start on Cefaziolin. Will cover for MSSA and E.coli. Flagyl 500mg Q8h for possible aspiration. RENEE appreciated-negative for IE Hypoxic respiratory failure: Most likely secondary to acute metabolic encephalopathy, chemical pneumonitis versus bacterial pneumonia versus viral pneumonitis. Check respiratory panel, repeat Covid PCR as per pulmonology recommendation. Continue antibiotics as above. Wean off oxygen supplementation as possible keeping saturation over 90%. Wean steroids to Solu-Medrol 40 every 8 hourly. DuoNebs every 6 hour, budesonide twice daily. Acute metabolic encephalopathy: Most likely secondary to severe sepsis along with withdrawal from polysubstance abuse and pain medications along with possible hepatic encephalopathy. We will plan to sedate with propofol and Precedex. Given symptoms of bradycardia, hypothermia will decrease the dose of Suboxone. 8 mg / 2 mg every [address] head from admission negative for any acute abnormality. Ammonia levels at elevated. Continue with lactulose 10 mg every 6 hourly till patient have at least 2-3 soft bowel movements. Repeat ammonia levels daily. Transaminitis: Most likely from severe sepsis along with history of hepatitis C. Check hep C RNA level, HIV, LDH, liver ultrasound. Full code. Lovenox will help with DVT prophylaxis. NPO. Protonix OPD prophylaxis. Patient's care discussed in detail with daughter at bedside. All the questions were answered. Severely guarded prognosis. Attestations Medical Necessity Statement*: Requires further hospitalization for management of ARDS, ventilator dependent, MSSA septicemia, acute metabolic encephalopathy in setting of polysubstance abuse Critical Care Time: The high probability of a clinically significant, sudden or life threatening deterioration of the patient's [cardiac, respiratory, ID, renal] system(s) required my full and direct attention, intervention and personal management. The critical care time is as shown. This time is in addition to time spent performing any reported procedures but includes the following: [x] Data and vital sign review and interpretation [x] Patient assessment, examination and intervention [x] Documentation [x] Medication orders and management Critical Care Time (min): 90 Coding Level of Care Code Acute Dimensional Engineer for [facility] Diagnoses Staphylococcus aureus bacteremia R78.81; B95.61 Septicemia A41.9 Polysubstance abuse F19.10 Respiratory failure with hypoxia J96.01 Chronicity: acute Pneumonia J15.211 Laterality: bilateral Lung location: unspecified part of lung Pneumonia type: due to methicillin-sensitive Staphylococcus aureus (MSSA) Metabolic encephalopathy G93.41 E-coli UTI N39.0; B96.20 Methamphetamine abuse F15.10 Alcohol use disorder Diabetes mellitus, type II E11.69 Diabetes mellitus complication status: with other specified complication Diabetes mellitus residential insulin use: unspecified long term care social worker insulin use status Hypertension I10 Hypertension type: essential hypertension Anxiety with depression F41.8
--- NOTE | 2021-02-24 09:32 | CT_ITS ---
WS: [id number] CTA OF THE CHEST WITH PULMONARY EMBOLISM PROTOCOL TECHNIQUE: High-resolution contrast enhanced CTA of the chest with coronal and sagittal reformatted i mages with pulmonary embolism protocol. MIP images are also reviewed. CLINICAL INFORMATION: R/O P/E COMPARISON: None. DLP: 581.[address] scans at [facility] use at least one of these dose optimization techniques: automat ed exposure control; mA and/or kV adjustment per patient size (includes targeted exams where dose is matched to clinical indication); or iterative reconstruction. FINDINGS: Proximal main pulmonary arteries are normal. Normal visualized segmental and subsegmental pulmonary a rteries. Some images degraded by patient motion. Endotracheal tube and enteric tube. Normal caliber t horacic aorta. Bilateral diffuse hazy groundglass infiltrates compatible with COVID 19 pneumonia. Air space consolidation with compressive atelectasis in the lung bases with air bronchograms. Mild thoracic kyphosis. Mild degenerative disease in the mid thoracic spine. Adrenal glands are norm al. Fluid distended gallbladder. CT/CT angio chest PE protcl [id number] IMPRESSION: 1. No evidence of pulmonary embolus. 2. Shallow inspiration with diffuse bilateral groundglass infiltrates most con sistent with COVID 19 pneumonia. 3. Airspace consolidation with compressive atelectasis in the lung bases with air bronchograms. 4. Enteric tube and ETT tube. 5. Fluid distended gallbladder. No gallbladder wall thickening or pericholecys tic fluid.
[2021-02-24 09:49] LABS: Procalcitonin 2.57 ng/mL (0-0.5)
--- NOTE | 2021-02-24 09:58 | PC.CHAP ---
Pastoral Care Encounter/Spiritual Assessment Type of Contact [] Declined director of public works visit [] Patient/Family/Request visit [] Outpatient visit [] Follow-up visit [] Physician referral [] Code/Alert [x] Routine visit [] Staff referral [] Actively dying [] Patient sleeping [] Family support [] [] Out of room [] Palliative care [] [] Receiving care in room [] Pre-surgical visit [] Trauma [] Long length of stay [x] ICU visit [x] Other:ventilator Relational/Emotional Strength [] Patient feels connected with others/family/visitors/staff [] Distress [] Loneliness/isolation [] Abandonment Spirituality of Patient [] Person of Connie [] Attends Evangelical of their Connie [] Believes in Prayer [] Reads Bible or Quaker materials [] There are Spiritual issues to be addressed Chain Pegger Interventions [x] Prayer [] Active listening [] Non-anxious presence [] Spiritual/emotional support [] Crisis/trauma care [] Spiritual counseling [] Bereavement support [] Provided bereavement packet [] Provided Bible/devotional materials [] Provided toy/stuffed animal, coloring book to patient or family member [] Provided Communion [] Anointing/[place] [] Salvation [x] Completed spiritual assessment [] Other: Impact on Illness or Injury [] Angry [] Fearful [] Anxious [] Often cries [] Exhaustion [] Unable to work [] Unable to attend hoahaoism [] Unable to walk/stand [] Unable to read [] Unable to drive [] Unable to eat/drink [] Unable to sleep [] Unable to be with family [] Patient intubated [] Other: Summary Time spent with patient
[2021-02-24] MEDS: iohexol 350 mg/mL 100 mL Btl IV (10:19)
[2021-02-24] MEDS: propofol 1,000 MG/100 ML INJ 26.13 MG IV ×4 (11:32→19:28)
--- NOTE | 2021-02-24 11:41 | PM.CONSULT ---
Providers/Reason For Consult Consulting Physician/Specialty*: Feliz Teague MD /Pulmonary Critical Care Reason for Consult*: acute hypoxic respiratory failure in pt with amphetamine overdose Requesting Physician: Bob Glasgow MD Attending Physician: Bob Glasgow MD Primary Care Provider: FARHAT Rivera History of Present Illness History of Present Illness Gina Jay is a 40 year old female with a past medical history significant for diabetes mellitus, hypertension, hypothyroidism, and polysubstance abuse who was presented to the hospital with altered mental status. Patient was not cooperative at the time of my evaluation and was unable to provide any history. Per emergency room she was discharged after short admission for drug overdose. Laboratory work-up on arrival showed a WBC of 12.8, hemoglobin 9.4, hematocrit of 30.1 and platelet count of 72. Sodium 138, potassium 3.8, chloride 107, bicarb 18, BUN 23 and a creatinine of 1.0. AST over 35, ALT of 55, alkaline phosphatase of 179. Urinalysis showing 3+ leukocyte esterase no 100 WBCs. Positive for opioids, and vitamins, benzodiazepines and cannabis. COVID-19 antigen and PCR negative.Mild to moderate left lower lung opacities. Findings could represent atelectasis or pneumonitis. Blood cultures were positive for MSSA. Currently on vancomycin and Zosyn. Pulmonary critical care consulted for acute hypoxic respiratory failure and altered mental status. Patient seen at bedside today-intubated and sedated with propofol Currently on RBP104/14/10/70 5% FiO2 Labs and imaging reviewed Review of Systems General: Reports: 10 or more systems reviewed and unremarkable except in HPI and below, ROS unobtainable due to endotracheal tube, ROS unobtainable due to medical condition and ROS unobtainable due to mental status Meds/Allergies Home Medications and Allergies Home Medications Medication Instructions Recorded Confirmed Last Taken Type buprenorphine 8 mg-naloxone 2 mg 1 film SUBLINGUAL TID each 08/30/19 02/21/21 02/25/20 08:00 History sublingual film blood sugar diagnostic #100 ea 10/14/20 02/21/21 Unknown Rx lactulose 10 gram/15 mL oral See Rx Instructions .ROUTE 02/16/21 02/21/21 Unknown Rx solution .COMPLEX #630 milliliter ciprofloxacin HCl [Cipro] 500 mg PO BID #14 tab 02/20/21 02/21/21 Unknown Rx fluoxetine 80 mg PO DAILY 02/20/21 02/21/21 Unknown History furosemide 20 mg PO BID 02/20/21 02/21/21 Unknown History insulin aspart U-100 [Novolog 10 unit SUBCUT TID 02/20/21 02/21/21 Unknown History Flexpen U-100 Insulin] insulin glargine [Lantus Solostar 20 unit SUBCUT QAM 02/20/21 02/21/21 Unknown History U-100 Insulin] levothyroxine 100 mcg PO DAILY 02/20/21 02/21/21 Unknown History ondansetron HCl [Zofran] 4 mg PO Q6H PRN #15 tab 02/20/21 02/21/21 Unknown Rx propranolol 40 mg PO BID 02/20/21 02/21/21 Unknown History prenat.vits,andrew,[id number]-[id number]-gmwpu 1 tab PO DAILY 02/21/21 02/21/21 02/20/21 History [ Plus] Allergies Allergy/AdvReac Type Severity Reaction Status Date / Time iodine Allergy Mild unknown Verified 09/24/20 14:12 Sulfa (Sulfonamide Allergy Mild rash Verified 09/24/20 14:12 Antibiotics) Current Medications Current Medications Generic Name Dose Route Start Last Admin Trade Name Freq PRN Reason Stop Dose Admin Acetaminophen 650 mg 02/21/21 05:32 02/24/21 03:34 Acetaminophen 325 Mg Tablet PO 650 mg Q6H PRN Administration Mild/Mod Pain Or Temp >/= 101 Enoxaparin Sodium 40 mg 02/23/21 09:00 02/24/21 08:06 Enoxaparin 40 Mg/0.4 Ml Syringe SUBCUT 40 mg Q24H LEILA Administration Furosemide 40 mg 02/22/21 18:00 02/23/21 05:54 Furosemide 10 Mg/Ml Sdv 4ml IVP 40 mg Q12H LEILA Administration Dexmedetomidine HCl 400 mcg/ 104 mls @ 0 mls/hr 02/22/21 04:00 02/23/21 06:45 Sodium Chloride IV Infused .Q0M LEILA Titration Protocol Per Protocol Fentanyl 1,000 mcg/ Sodium 100 mls @ 0 mls/hr 02/22/21 08:15 02/24/21 02:41 Chloride IV Infused .Q0M LEILA Titration Protocol Per Protocol Propofol 1,000 mg in 100 mls @ 0 mls/hr 02/22/21 08:30 02/24/21 11:32 Diprivan IV 40 mcg/kg/min .Q0M LEILA 26.13 mls/hr Administration Protocol Per Protocol Sodium Chloride 1,000 mls @ 50 mls/hr 02/23/21 17:30 02/23/21 17:31 Sodium Chloride 0.9% IV 50 mls/hr .Q20H LEILA Administration Lidocaine HCl 5 ml/ Potassium 105 mls @ 25 mls/hr 02/24/21 09:00 02/24/21 11:32 Chloride IV 02/24/21 16:59 25 mls/hr Q4H LEILA Administration Cefazolin Sodium/Dextrose 2 gm in 50 mls @ 100 mls/hr 02/24/21 10:00 02/24/21 10:32 Kefzol IV Infused Q8H LEILA Infusion Protocol Metronidazole 500 mg in 100 mls @ 100 mls/hr 02/24/21 08:30 02/24/21 09:36 Flagyl Iv IV 02/26/21 08:29 Infused Q8H LEILA Infusion Protocol Insulin Aspart 0 unit 02/23/21 21:45 02/24/21 08:04 Insulin Aspart 100 Unit/1 Ml SUBCUT 4 unit Q6H LEILA Administration Protocol Lactulose 10 gm 02/23/21 10:30 02/24/21 09:43 Lactulose Oral Liq 20 Gm/30 Ml Udc PO 10 gm Q6H LEILA Administration Levothyroxine Sodium 100 mcg 02/24/21 09:00 02/24/21 08:06 Levothyroxine 100 Mcg Tablet PO 100 mcg DAILY LEILA Administration Methylprednisolone Sodium Succinate 60 mg 02/23/21 21:45 02/24/21 05:13 Methylprednisolone Sod Succ 125 Mg/2 Ml Inj IVP 60 mg Q8H LEILA Administration PFSH Acute PFSH: Medical History Abdominal pain Anxiety with depression Cholelithiasis Congestive heart failure Cystitis Diabetes mellitus, type II Drug-induced psychotic disorder FH: breast cancer in first degree relative H/O chronic hepatitis Hepatic encephalopathy Hypertension Hypothyroid Opiate dependence 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 Vitamin D deficiency Yeast dermatitis Surgical History History of Social History Smoking and tobacco status: current every day smoker Second hand smoke exposure: No Smoking risk assessment/counseling performed?: No Alcohol intake: never Desire information about alcohol rehabilitation?: No Counseling given: No Desire information about substance/drug rehabilitation?: No Counseling given: No Vitals/I&O/Wt Last Vital Signs Temp 94 F L 02/24/21 08:00 Pulse 59 L 02/24/21 10:30 Resp 18 02/24/21 08:00 BP 98/54 02/24/21 10:30 Pulse Ox 96 02/24/21 10:30 02/23/21 02/24/21 02/24/21 22:59 06:59 14:59 Intake Total 1024.0269 / 2867.2859 350 / 3217.2859 473.414 / 473.414 Output Total 2000 / 3900 600 / 4500 300 / 300 Balance -975.9731 / -1032.7141 -250 / -1282.7141 173.414 / 173.414 Physical Exam Narrative: EXAM NARRATIVE: PHYSICAL EXAM: General: lying in bed, sedated and intubated. HEENT:NCAT, PERRLA, EOMI Neck: Supple Lungs: Bilateral diffuse crackles Heart: s1/s2, RRR Abd: soft, NT, ND, BS + Normoactive Extremities: No edema CARPET YARN WINDER OPERATOR: sedated and limited CARPET YARN WINDER OPERATOR exam possible. SKIN: no rash LDA: # CVC: Right SVC 02/23/2021 # Boykin: 02/22/2021 Urinary Catheter Management^: Boykin: Cath Placed During This Visit: yes Reason for Continuing Indwelling Catheter: Accurate Measurement of Urinary Output in Critically Ill Patients Urinary Catheter Date of Insertion: 02/22/21 Urinary Catheter Time of Insertion: 09:00 Data Labs: Other Labs: Laboratory Results WBC 6.9 10^3/uL (4.0- 10.0) 02/24/21 06:13 RBC 3.94 10^6/uL (4.1 -5.3) L 02/24/21 06:13 Hgb 9.3 g/dL (11.5-15 .3) L 02/24/21 06:13 Hct 30.0 % (37.0-47.0 ) L 02/24/21 06:13 MCV 76.1 fL (81-99) L 02/24/21 06:13 MCH 23.6 pg (28.0-34. 0) L 02/24/21 06:13 MCHC 31.0 g/dL (30.0-3 6.0) 02/24/21 06:13 RDW 23.8 % (12.1-15.1 ) H 02/24/21 06:13 Plt Count 67 10^3/cmm (130- 400) L 02/24/21 06:13 MPV Not Reportable 02/24/21 06:13 Neut % (Auto) 69.8 % 02/24/21 06:13 Lymph % (Auto) 23.1 % 02/24/21 06:13 [place] % (Auto) 5.2 % 02/24/21 06:13 Eos % (Auto) 0.0 % 02/24/21 06:13 Baso % (Auto) 0.4 % 02/24/21 06:13 Neut # (Auto) 4.79 10^3/uL (1.8 -7.7) 02/24/21 06:13 Lymph # (Auto) 1.6 10^3/uL (0.8- 4.8) 02/24/21 06:13 [place] # (Auto) 0.4 10^3/uL (0.2- 0.9) 02/24/21 06:13 Eos # (Auto) 0.0 10^3/uL (0.0- 0.8) 02/24/21 06:13 Baso # (Auto) 0.0 10^3/uL (0.0- 0.1) 02/24/21 06:13 Nucleated RBC % (a uto) 0.3 % 02/24/21 06:13 Nucleated RBCs # 0.0 /100WBC 02/24/21 06:13 Anisocytosis 2+ H 02/22/21 02:40 Macrocytosis Trace 02/22/21 02:40 Ovalocytes Trace 02/22/21 02:40 [place] Cells 2+ H 02/22/21 02:40 ESR 75 mm/hr (0-15) H 02/23/21 09:05 Haptoglobin 133.0 mg/L (30-20 0) 02/23/21 09:05 Haptoglobin Cancelled 02/23/21 09:05 PT 19.60 SECONDS (12 .1-14.9) H 02/23/21 09:05 INR 1.62 (0.8-1.2) H 02/23/21 09:05 APTT 35.1 SECONDS (23. 9-36.7) 02/23/21 09:05 Fibrinogen 533 mg/dL (174-49 8) H 02/23/21 09:05 Fibrinogen Cancelled 02/23/21 09:05 D-Dimer 3.29 ug/mIFEU (0- 0.59) H 02/23/21 09:05 D-Dimer Cancelled 02/23/21 09:05 Specimen Type Arterial 02/24/21 05:10 Sample Site Brachial, right 02/24/21 05:10 ABG pH 7.39 (7.35-7.45) 02/24/21 05:10 ABG pCO2 35.8 mmHg (35-45) 02/24/21 05:10 ABG pO2 72.4 mmHg (80.0-1 00.0) L 02/24/21 05:10 ABG HCO3 21.6 mmol/L (22-2 6) L 02/24/21 05:10 ABG O2 Saturation 93.3 02/24/21 05:10 ABG Base Excess -2.9 mmol/L (-2.0 -2.0) L 02/24/21 05:10 Lencho Test N/a 02/24/21 05:10 A-a O2 Gradient 77.4 mmHg (5-10) H 02/24/21 05:10 Hematocrit 31.8 % (37-47) L 02/24/21 05:10 Hgb O2 Saturation 91.6 % (95-100) L 02/24/21 05:10 Carboxyhemoglobin 0.8 %THgb (0.4-20 .1) 02/24/21 05:10 Methemoglobin 1.0 % (0.4-1.5) 02/24/21 05:10 Total Hemoglobin 10.4 g/dL (12-16) L 02/24/21 05:10 Sodium 147.0 mmol/L (131 -143) H 02/24/21 05:10 Potassium 2.5 mmol/L (3.5-5 .0) L 02/24/21 05:10 Glucose 211.0 mg/dL (70-1 15) H 02/24/21 05:10 Ionized Calcium 1.3 mmol/L (1.1-1 .4) 02/24/21 05:10 Respiration Rate 16.0 % 02/23/21 16:43 O2 Delivery Device Vent 02/24/21 05:10 FiO2 100.0 % 02/24/21 05:10 Tidal Volume 0.40 02/24/21 05:10 PEEP 10.0 cmH20 02/24/21 05:10 Specimen Drawn By pgd 02/23/21 16:43 Chemical Project Engineer ID Dallin 02/24/21 05:10 Sodium 145 mmol/L (136-1 45) 02/24/21 06:13 Potassium 2.6 mmol/L (3.5-5 .1) L* 02/24/21 06:13 Chloride 114 mmol/L (98-10 7) H 02/24/21 06:13 Carbon Dioxide 21 mmol/L (22-29) L 02/24/21 06:13 Anion Gap 12.6 (5-19) 02/24/21 06:13 BUN 31 mg/dL (6-20) H 02/24/21 06:13 Creatinine 0.6 mg/dL (0.5-0. 9) 02/24/21 06:13 GFR Calculation 110.7 mL/min (90- 130) 02/24/21 06:13 Glucose 199 mg/dL (65-115 ) H 02/24/21 06:13 POC Glucose 188 mg/dL (70-110 ) H 02/24/21 07:39 Estimat Average Gl ucose 154 02/24/21 06:13 Hemoglobin A1c 7.0 % (4.0-6.0) H 02/24/21 06:13 Calculated Osmolal ity 312 mOsm/kg (285- 295) H 02/24/21 06:13 Lactic Acid 2.1 mmol/L (0.5-2 .2) 02/22/21 02:40 Lactic Acid (Sepsi s) 2.2 mmol/L (0.5-2 .2) 02/22/21 13:45 Lactate 2.5 mmol/L (0.5-2 .2) H 02/21/21 00:55 Calcium 8.1 mg/dL (8.5-10 .5) L 02/24/21 06:13 Magnesium 1.5 mg/dL (1.7-2. 3) L 02/23/21 09:05 Iron 29 ug/dL (37-145) L 02/23/21 09:05 TIBC 225 mcg/dl 02/23/21 09:05 % Saturation 12.8 % (20-50) L 02/23/21 09:05 Unsat Iron Binding 196 ug/dL (112-34 7) 02/23/21 09:05 Total Bilirubin 2.2 mg/dL (0.15-1 .2) H 02/24/21 06:13 Direct Bilirubin Cancelled 02/23/21 09:05 AST 40 U/L (0-32) H 02/24/21 06:13 ALT 21 U/L (0-33) 02/24/21 06:13 Alkaline Phosphata se 131 IU/L (35-105) H 02/24/21 06:13 Ammonia 109 umol/L (11-51 ) H 02/23/21 12:49 Lactate Dehydrogen ase 307 U/L (135-214) H 02/23/21 09:05 Lactate Dehydrogen ase Cancelled 02/23/21 09:05 C-Reactive Protein 160.6 mg/L (0.0-4 .9) H 02/23/21 09:05 C-Reactive Protein Cancelled 02/23/21 09:05 NT-Pro-B Natriuret Pep 1153 pg/mL (0-125 ) H 02/24/21 06:13 Total Protein 6.5 g/dL (6.6-8.7 ) L 02/24/21 06:13 Albumin 2.2 g/dL (3.5-5.2 ) L 02/24/21 06:13 Globulin 4.3 g/dL (1.3-4.6 ) 02/24/21 06:13 Procalcitonin 2.57 ng/mL (0-0.5 ) H 02/24/21 06:13 TSH 0.78 uIU/mL (0.27 -4.20) 02/23/21 09:05 Urine Color Yellow (Yellow) 02/21/21 02:04 Urine Appearance Clear (CLEAR) 02/21/21 02:04 Urine pH 6 (5-7) 02/21/21 02:04 Ur Specific Gravit y 1.015 (1.005-1.0 30) 02/21/21 02:04 Urine Protein Neg (Negative) 02/21/21 02:04 Urine Glucose (UA) Norm (Normal) 02/21/21 02:04 Urine Ketones Negative (Negati ve) 02/21/21 02:04 Urine Blood Neg (Negative) 02/21/21 02:04 Urine Nitrate Negative (Negati ve) 02/21/21 02:04 Urine Bilirubin 1+ (Negative) H 02/21/21 02:04 Urine Urobilinogen 8 mg/dL (Negative ) H 02/21/21 02:04 Ur Leukocyte Jody ase Negative (Negati ve) 02/21/21 02:04 Vancomycin Trough 38.1 ug/mL (10-15 ) H* 02/23/21 15:58 Random Vancomycin 12.1 ug/mL (20.0- 40.0) L 02/24/21 06:13 Salicylates < 0.3 mg/dL (3-10 ) L 02/21/21 00:55 Acetaminophen < 5.0 ug/mL (10-3 0) L 02/21/21 00:55 Ethyl Alcohol < 10 mg/dL (0-10) 02/21/21 00:55 Nasal/Oral COVID-1 9 PCR Not detected 02/22/21 08:00 HIV 1&2 Ab & HIV 1 Ag Non-reactive (No n-Reactiv) 02/24/21 06:13 HIV 1&2 Antibody Non-reactive (No n-Reactiv) 02/24/21 06:13 SARS-CoV-2 Ag (Rap id) Negative (Negati ve) 02/21/21 01:[address] 02/21/21 00:17 IMPRESSION: 1. No acute intracranial hemorrhage or mass effect. 2. No definite acute infarct by CT, see above. 3. Other findings discussed above. 4. Some limitations due to artifact from patient motion. Radiation Dose CTDIVOL = (mGy): DLP = 1670.1 (mGy-cm) Chest X-Ray 02/24/21 06:00 IMPRESSION: Stable abnormal chest as above. Chest CTA 02/24/21 09:32 IMPRESSION: 1. No evidence of pulmonary embolus. 2. Shallow inspiration with diffuse bilateral groundglass infiltrates most consistent with COVID 19 pneumonia. 3. Airspace consolidation with compressive atelectasis in the lung bases with air bronchograms. 4. Enteric tube and ETT tube. 5. Fluid distended gallbladder. No gallbladder wall thickening or pericholecystic fluid. Micro: Micro: Microbiology 02/23/21 10:45 Gram Stain - Final Sputum - Expector ated Sputum 02/23/21 09:05 Blood Culture - Pr eliminary Blood NEGATIVE TO FAY E 02/23/21 10:45 MRSA Culture - Fin al Nose 02/22/21 13:45 Blood Culture - Pr eliminary Blood NEGATIVE TO FAY E 02/22/21 13:40 Blood Culture - Pr eliminary Blood NEGATIVE TO FAY E 02/23/21 12:49 Blood Culture - Pr eliminary Blood SPECIMEN COLLEC MARYBEL 02/21/21 01:36 Blood Culture - Pr eliminary Blood Staphylococcus aureus 02/21/21 00:55 Blood Culture - Pr eliminary Blood Staphylococcus aureus A&P Assessment and plan (1) Altered mental status: Status: Acute Qualifiers: Altered mental status type: unspecified Qualified Code(s): R41.82 - Altered mental status, unspecified (2) Respiratory failure with hypoxia: Status: Acute Qualifiers: Chronicity: acute Qualified Code(s): J96.01 - Acute respiratory failure with hypoxia (3) Septicemia: Status: Acute (4) Polysubstance abuse: Status: Acute (5) Staphylococcus aureus bacteremia: Status: Acute (6) Metabolic encephalopathy: Status: Acute (7) Methamphetamine abuse: Status: Acute (8) Hepatic encephalopathy: Status: Acute (9) Alcohol use disorder: Status: Acute (10) Acute hypokalemia: Status: Acute (11) Diabetes mellitus, type II: Status: Acute Qualifiers: Diabetes mellitus rougher operator insulin use: unspecified prison insulin use status Diabetes mellitus complication status: with other specified complication Qualified Code(s): E11.69 - Type 2 diabetes mellitus with other specified complication (12) Hypothyroid: Status: Acute Qualifiers: Hypothyroidism type: acquired Qualified Code(s): E03.9 - Hypothyroidism, unspecified (13) E-coli UTI: Status: Acute Overall: 40-year-old with past medical history of polysubstance abuse (opiates, benzodiazepines, amphetamine, marijuana, alcohol), diabetes mellitus, hypothyroidism, history of heart failure, admitted to ICU for altered mental status secondary to sepsis/drug overdose/hepatic encephalopathy; hypoxic respiratory failure secondary to fluid overload versus pneumonia, MSSA bacteremia. #Altered mental status-sepsis/drug overdose/hepatic encephalopathy #U tox positive for opiates, benzodiazepines, amphetamines, marijuana -Currently sedated with propofol -Ammonia 109; -Continue lactulose 10 g p.o. every 6 hours scheduled-target 2-3 soft bowel movements per day -Patient on Suboxone #Acute hypoxic respiratory failure-possible aspiration pneumonia/fluid overload secondary to drug #MSSA bacteremia-3/3 blood cultures positive #Urine culture positive for E. coli sensitive to Zosyn -ABG today morning 7.3 9/35/72/20 1/93% on CMV 400/10/100% -On CMV 400/15/10/75% FiO2 -saturating 93% -CTA 02/24/2021: No evidence of PE. Shallow inspiration with diffuse bilateral GGO consistent with COVID-19 pneumonia. Airspace consolidation with compressive atelectasis in the lung bases with air bronchograms -COVID-19 rapid antigen and PCR-both are negative; sent for other respiratory viral panel and repeat Covid PCR -Urine Legionella and other bacterial antigens negative -Blood cultures 3/3 positive for MSSA bacteremia & urine culture positive for E. coli -Patient was on vancomycin and Zosyn, discontinued - started on cefazolin and Flagyl to cover anaerobes-ID consulted and appreciate recommendations - levaquin for UTI Ecoli -Elevated procalcitonin and inflammatory markers-likely due to bacterial infection -CTA today no evidence of septic emboli or microabscesses in lungs -BNP 1153, TTE technically difficult study and appears grossly normal LV function -Recommended RENEE to rule out vegetations -DC IV fluids and held Lasix 40 mg every 12 twice daily to keep patient net negative to even -On Solu-Medrol 60 mg IVP every 8-recommended to taper down #A. fib RVR-due to drug overdose-now rate controlled and normal sinus rhythm -Received one dose of amiodarone -Continue close cardiac monitoring -Supplement to keep mg > 2 and k > 3.5 #Deranged LFTs-hepatitis C antibody positive vs alcoholic pattern -History of alcohol abuse -Monitor LFTs -Avoid hepatotoxic medications #Hypokalemia 2.6-supplemented Kcl 80 Meq - Monitor and supplement to keep > 3.5 - check mg and supplement if necessary to keep > 2 #Diabetes mellitus-sugars moderately controlled -Currently on scale coverage #Hypothyroidism -Currently on levothyroxine 100 MCG p.o. daily DVT prophylaxis-Lovenox 40 mg daily GI prophylaxis-PPI; patient intubated more than 48 hours and currently on steroids Condition-critical, prognosis-poor Recommendations conveyed to hospitalist, RT, RN covering the patient Consult Attestations Medical Necessity Statement: AMS and acute hypoxic respiratory failure secondary to fluid overload due to drug overdose, hepatic encephalopathy, MSSA bacteremia and possible aspiration pneumonia Time Spent in Patient Care: Greater than 35 minutes (>than 50% of time spent in counselling and/or direct pt care on unit). Critical Care Time: The high probability of a clinically significant, sudden or life threatening deterioration of the patient's [neurological, respiratory, hepatic, endocrine, infectious disease] system(s) required my full and direct attention, intervention and personal management. The critical care time is as shown. This time is in addition to time spent performing any reported procedures but includes the following: [x] Data and vital sign review and interpretation [x] Patient assessment, examination and intervention [x] Documentation [x] Medication orders and management Critical Care Time (min): 60 Coding Level of Care Code New Pt Acute Insurance Adjustor for g Fwd Patient Type New History Comprehensive Exam Comprehensive Medical Decision Making High Complexity Diagnoses Altered mental status R41.82 Altered mental status type: unspecified Respiratory failure with hypoxia J96.01 Chronicity: acute Septicemia A41.9 Polysubstance abuse F19.10 Staphylococcus aureus bacteremia R78.81; B95.61 Metabolic encephalopathy G93.41 Methamphetamine abuse F15.10 Hepatic encephalopathy K72.90 Alcohol use disorder Acute hypokalemia E87.6 Diabetes mellitus, type II E11.69 Diabetes mellitus prison insulin use: unspecified rougher operator insulin use status Diabetes mellitus complication status: with other specified complication Hypothyroid E03.9 Hypothyroidism type: acquired E-coli UTI N39.0; B96.20 Time Spent (min) 60
--- NOTE | 2021-02-24 12:00 | USCV_ITS ---
Gina Jay Age: 40 Gender: F : 1980 Exam Date: 02/24/2021 11:58 Ordering Phys: Latrice Frias MD Technologist: Andreea Romero Exam Location: [facility] [place] Indication: INFECTIVE ENDOCARDITIS BP: / HR: Rhythm: Sinus Technical Quality: Good MEASUREMENTS (Male / Female) Normal Values Medications Patient is sedated and intubated in the ICU. Patient is on propofol please see ICU medicine log Complications None. Proc. Components FINDINGS Left Ventricle Normal left ventricular cavity size. Normal left ventricular systolic function. Left ventricular ejection fraction is estimated at 60 %. Right Ventricle The right ventricle is normal in size and function. Right Atrium The right atrium is normal in size. Left Atrium The left atrium is normal in size. LA Appendage The LA appendage is normal. IA Septum Normal interatrial septum. Mitral Valve Mildly thickened mitral valve. No mitral valve stenosis. Moderate mitral valve regurgitation. Aortic Valve Moderate aortic valve calcification. No aortic valve stenosis. Trace aortic valve regurgitation. Tricuspid Valve Structurally normal tricuspid valve without significant stenosis or regurgitation. Pulmonary artery systolic pressure is normal. Pulmonic Valve Structurally normal pulmonic valve without significant stenosis. There is no pulmonic regurgitation. Pericardium Normal pericardium without effusion. Aorta Normal ascending aorta dimension. CONCLUSIONS 1-Normal left ventricular cavity size. Normal left ventricular systolic function. Left ventricular ejection fraction is estimated at 60 %. 2-Mildly thickened mitral valve. No mitral valve stenosis. Moderate mitral valve regurgitation. 3-Moderate aortic valve calcification. No aortic valve stenosis. Trace aortic valve regurgitation. 4-Structurally normal pulmonic valve without significant stenosis. There is no pulmonic regurgitation. 5-Structurally normal tricuspid valve without significant stenosis or regurgitation. Pulmonary artery systolic pressure is normal. 6-There is no pericardial effusion. 7-There are no prior echocardiogram studies to compare. Candy Fermin MD (Electronically Signed) Final Date: 24 February 2021 17:47 S
[2021-02-24] MEDS: levofloxacin-dextrose 5 % 500 MG/100 ML PREMIX 100 MG IV (13:13)
[2021-02-24 14:54] LABS: Magnesium 2.2 mg/dL (1.7-2.3)
[2021-02-24 20:43] LABS: Glucose Point of Care 173 mg/dL (70-110)
[2021-02-24 20:43] LABS: Glucose Point of Care 179 mg/dL (70-110)
[2021-02-25] VITALS (93 sets, daily range): BP systolic 111–161; BP diastolic 56–90; PULSE 62–88; RESP 16–20; TEMP 36.3–37.1; O2SAT 89–100
[2021-02-25] MEDS: metroNIDAZOLE IV 500 MG/100 ML PREMIX 100 MG IV ×3 (00:10→16:35)
[2021-02-25] MEDS: propofol 1,000 MG/100 ML INJ 26.13 MG IV ×3 (02:56→10:02)
[2021-02-25 03:46] LABS: Glucose Point of Care 232 mg/dL (70-110)
[2021-02-25] MEDS: lactulose oral liq 20 gm/30 mL UDC 10 GM PO ×4 (03:47→21:57)
[2021-02-25 05:25] LABS: Basophils % 0.5 %; Hematocrit 31.4 % (37.0-47.0); Hemoglobin 9.8 g/dL (11.5-15.3); Lymphocytes # 1.5 10^3/uL (0.8-4.8); Lymphocytes % 16.6 %; Mean Corpuscular HGB Conc 31.2 g/dL (30.0-36.0); Mean Corpuscular Hemoglobin 23.8 pg (28.0-34.0); Mean Corpuscular Volume 76.4 fL (81-99); Monocytes # 0.5 10^3/uL (0.2-0.9); Monocytes % 5.9 %; Neutrophils # 6.71 10^3/uL (1.8-7.7); Neutrophils % 75.4 %; Nucleated Red Blood Cells % 0.5 %; Platelet Count 76 10^3/cmm (130-400); Red Blood Count 4.11 10^6/uL (4.1-5.3); Red Cell Distribution Width 24.5 % (12.1-15.1); White Blood Count 8.9 10^3/uL (4.0-10.0)
[2021-02-25 05:38] LABS: ABG PCO2 34.8 mmHg (35-45); ABG PH Result 7.42 (7.35-7.45); Alveolar-Arterial Oxygen Gradi 48.6 mmHg (5-10); Arterial Blood Gas Hematocrit 32.9 % (37-47); Base Excess ABG -1.6 mmol/L (-2.0-2.0); Blood Gas Sample Site Brachial, right; Blood Gas Sample Type Arterial; HCO3 ABG 22.4 mmol/L (22-26); HGB O2 Sat 81.5 % (95-100); Ionized Calcium Level - ABG 1.3 mmol/L (1.1-1.4); Oxygen Device VENT; Oxygen Saturation ABG 83.2; PO2 ABG 47.1 mmHg (80.0-100.0); Potassium Level - ABG 3.4 mmol/L (3.5-5.0); Total Hemoglobin 10.7 g/dL (12-16)
[2021-02-25 05:57] LABS: Add RBC Morph Yes; Alanine Aminotransferase 20 U/L (0-33); Albumin Level 2.4 g/dL (3.5-5.2); Alkaline Phosphatase 149 IU/L (35-105); Anion Gap 14.4 (5-19); Aspartate Amino Transferase 43 U/L (0-32); Blood Urea Nitrogen 39 mg/dL (6-20); Calcium 8.2 mg/dL (8.5-10.5); Carbon Dioxide 21 mmol/L (22-29); Chloride 114 mmol/L (98-107); Globulin 4.4 g/dL (1.3-4.6); Glomerular Filtration Rate 79.4 mL/min (90-130); Glucose 242 mg/dL (65-115); Lactate Dehydrogenase 253 U/L (135-214); NT Pro B Type Natriuretic Pept 658 pg/mL (0-125); Osmolality Calculated 319 mOsm/kg (285-295); Potassium 3.4 mmol/L (3.5-5.1); Slide Review Slide Review Perform; Sodium 146 mmol/L (136-145); Total Bilirubin 1.8 mg/dL (0.15-1.2); Total Protein 6.8 g/dL (6.6-8.7)
[2021-02-25 05:58] LABS: Anisocytosis 3+; Hypochromasia 1+; RBC Morph Comp No; Target Cells 2+
--- NOTE | 2021-02-25 06:00 | US_ITS ---
WS: [id number] ULTRASOUND ABDOMEN LIMITED CLINICAL INFORMATION: hep c, transaminitis COMPARISON: None. FINDINGS: Technically difficult examination due to body habitus and bowel gas. Liver Size: Enlarged Craniocaudal length: 18.6 cm. Echogenicity: Heterogeneous and dense Surface nodularity: None. Mass (size and location): None. Bile ducts Intrahepatic ducts: Normal. Common bile duct diameter: 0.4 cm. Gallbladder Normal. Gallstones: None. Gallbladder sludge: None. Gallbladder wall thickening: None. Pericholecystic fluid: None. Sonographic Gandara sign: Absent. Pancreas Not well seen Right kidney: Normal. Hydronephrosis: None. Size: 11.5 cm x 5.7 cm x 6.1 cm. Abdominal aorta and IVC Visualized portions are normal. Ascites: None. US/US liver [id number] IMPRESSION: 1. Hepatomegaly with diffuse fatty infiltration and coarse echogenicity. No in trahepatic biliary ductal dilatation. 2. Mild fluid distention of the gallbladder which is otherwise normal in appea armand. 3. Normal common bile duct. 4. No hydronephrosis in right kidney.
--- NOTE | 2021-02-25 07:38 | XR_ITS ---
WS: [id number] Exam: XR chest 1V portable [id number] Date/Time of Exam: 02/25/2021 7:48 AM Reason For Exam: SOB Comparison 02/24/2021. Previously noted bilateral infiltrates show significant improvement since previous study. There are s till residual infiltrate in the right lower lung zone. Heart size is normal for technique. The ET tub e has migrated cephalad since prior study and now ends at about the level of T2. An NG tube enters th e stomach but the tip is not visible. A right subclavian central line is in place probably ending in the lower one third of the SVC. No pneumothorax. XR/XR chest 1V portable [id number] IMPRESSION: 1. Bilateral pulmonary infiltrates showing significant improvement since prior study. 2. The ET tube has moved cephalad several centimeters and now ends at about the level of T2. The tube could be advanced 2 to 3 cm for optimal position. The sameer ngs remain well ventilated.
[2021-02-25 07:41] LABS: Glucose Point of Care 227 mg/dL (70-110)
[2021-02-25 08:20] LABS: Vancomycin Trough 4.5 ug/mL (10-15)
[2021-02-25] MEDS: ipratropium-albuterol 3 mL Neb INHALATION ×4 (08:49→21:19)
[2021-02-25] MEDS: budesonide 0.5 mg/2 mL Neb INHALATION ×2 (08:51→21:19)
--- NOTE | 2021-02-25 09:06 | PC.CHAP ---
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 visit [] Patient/Family/Request visit [] Outpatient visit [] Follow-up visit [] Physician referral [] Code/Alert [x] Routine visit [] Staff referral [] Actively dying [x] Patient sleeping [] Family support [] [] Out of room [] Palliative care [] [] Receiving care in room [] Pre-surgical visit [] Trauma [] Long length of stay [x] ICU visit [x] Other: ventilator Relational/Emotional Strength [] Patient feels connected with others/family/visitors/staff [] Distress [] Loneliness/isolation [] Abandonment Spirituality of Patient [] Person of Connie [] Attends Denominational of their Connie [] Believes in Prayer [] Reads Bible or Buddhist materials [] There are Spiritual issues to be addressed Licensed Practical Nurse Interventions [x] Prayer [] Active listening [] Non-anxious presence [] Spiritual/emotional support [] Crisis/trauma care [] Spiritual counseling [] Bereavement support [] Provided bereavement packet [] Provided Bible/devotional materials [] Provided toy/stuffed animal, coloring book to patient or family member [] Provided Communion [] Anointing/[place] [] Salvation [x] Completed spiritual assessment [] Other: Impact on Illness or Injury [] Angry [] Fearful [] Anxious [] Often cries [] Exhaustion [] Unable to work [] Unable to attend bahai [] Unable to walk/stand [] Unable to read [] Unable to drive [] Unable to eat/drink [] Unable to sleep [] Unable to be with family [] Patient intubated [] Other: Summary Time spent with patient
[2021-02-25] MEDS: enoxaparin 40 mg/0.4 mL Syringe SUBCUT (10:04)
[2021-02-25] MEDS: levothyroxine 100 mcg Tablet PO (10:07)
[2021-02-25] MEDS: dextrose 5%-sod chloride 0.45% 1,000 ML 75 ML IV (10:23)
[2021-02-25] MEDS: propofol 1,000 MG/100 ML INJ 22.86 MG IV (12:50)
[2021-02-25 14:19] LABS: Coronavirus Test Green County Not Detected
[2021-02-25 14:26] LABS: Glucose Point of Care 229 mg/dL (70-110)
[2021-02-25] MEDS: FUROsemide 10 mg/mL SDV 4mL 40 MG IVP (14:28)
[2021-02-25] MEDS: potassium chloride premix 100 ML 25 MEQ IV (14:30)
--- NOTE | 2021-02-25 14:52 | P.PN_ITS ---
Subjective Subjective: Interval history: -No overnight events -Still in sedated and intubated on CMV 400/16/10/55% -Patient on propofol 40 and Suboxone -Hemodynamically stable -Bilateral pulmonary infiltrates significantly improved on chest x-ray-ET tube at T2 level Medications: Reviewed: Yes Vitals/I&O/Wt Last Vital Signs Temp 98.4 F 02/25/21 07:00 Pulse 67 02/25/21 14:02 Resp 18 02/25/21 13:59 BP 122/67 02/25/21 11:15 Pulse Ox 99 02/25/21 13:59 02/24/21 02/25/21 02/25/21 22:59 06:59 14:59 Intake Total 462.298 / 2016.545 350 / 2366.545 303.487 / 303.487 Output Total 600 / 1300 550 / 1850 Balance -137.702 / 716.545 -200 / 516.545 303.487 / 303.487 Physical Exam Narrative: EXAM NARRATIVE: EXAM NARRATIVE: PHYSICAL EXAM: General: lying in bed, sedated and intubated. HEENT:NCAT, PERRLA, EOMI Neck: Supple Lungs: Bilateral diffuse crackles Heart: s1/s2, RRR Abd: soft, NT, ND, BS + Normoactive Extremities: No edema IUSS ACOUSTIC ANALYST: sedated and limited IUSS ACOUSTIC ANALYST exam possible. SKIN: no rash LDA: # CVC: Right SVC 02/23/2021 # Boykin: 02/22/2021 Urinary Catheter Management^: Boykin: Cath Placed During This Visit: yes Reason for Continuing Indwelling Catheter: Accurate Measurement of Urinary Outp ut in Critically Ill Patients Urinary Catheter Date of Insertion: 02/22/21 Urinary Catheter Time of Insertion: 09:00 Data : 02/25/21 04:37 02/25/21 04:37 Other Labs: Laboratory Results WBC 8.9 10^3/uL (4.0-10.0) 02/25/21 04:37 RBC 4.11 10^6/uL (4.1-5.3) 02/25/21 04:37 Hgb 9.8 g/dL (11.5-15.3) L 02/25/21 04:37 Hct 31.4 % (37.0-47.0) L 02/25/21 04:37 MCV 76.4 fL (81-99) L 02/25/21 04:37 MCH 23.8 pg (28.0-34.0) L 02/25/21 04:37 MCHC 31.2 g/dL (30.0-36.0) 02/25/21 04:37 RDW 24.5 % (12.1-15.1) H 02/25/21 04:37 Plt Count 76 10^3/cmm (130-400) L 02/25/21 04:37 MPV Not Reportable 02/25/21 04:37 Neut % (Auto) 75.4 % 02/25/21 04:37 Lymph % (Auto) 16.6 % 02/25/21 04:37 [place] % (Auto) 5.9 % 02/25/21 04:37 Eos % (Auto) 0.0 % 02/25/21 04:37 Baso % (Auto) 0.5 % 02/25/21 04:37 Neut # (Auto) 6.71 10^3/uL (1.8-7.7) 02/25/21 04:37 Lymph # (Auto) 1.5 10^3/uL (0.8-4.8) 02/25/21 04:37 [place] # (Auto) 0.5 10^3/uL (0.2-0.9) 02/25/21 04:37 Eos # (Auto) 0.0 10^3/uL (0.0-0.8) 02/25/21 04:37 Baso # (Auto) 0.0 10^3/uL (0.0-0.1) 02/25/21 04:37 Nucleated RBC % (auto) 0.5 % 02/25/21 04:37 Nucleated RBCs # 0.0 /100WBC 02/25/21 04:37 Hypochromasia 1+ H 02/25/21 04:37 Anisocytosis 3+ H 02/25/21 04:37 Macrocytosis Trace 02/22/21 02:40 Target Cells 2+ H 02/25/21 04:37 Ovalocytes Trace 02/22/21 02:40 Bren Cells 2+ H 02/22/21 02:40 ESR 75 mm/hr (0-15) H 02/23/21 09:05 Haptoglobin 133.0 mg/L (30-200) 02/23/21 09:05 Haptoglobin Cancelled 02/23/21 09:05 PT 19.60 SECONDS (12.1-14.9) H 02/23/21 09:05 INR 1.62 (0.8-1.2) H 02/23/21 09:05 APTT 35.1 SECONDS (23.9-36.7) 02/23/21 09:05 Fibrinogen 533 mg/dL (174-498) H 02/23/21 09:05 Fibrinogen Cancelled 02/23/21 09:05 D-Dimer 3.29 ug/mIFEU (0-0.59) H 02/23/21 09:05 D-Dimer Cancelled 02/23/21 09:05 Specimen Type Arterial 02/24/21 05:10 Sample Site Brachial, right 02/24/21 05:10 ABG pH 7.39 (7.35-7.45) 02/24/21 05:10 ABG pCO2 35.8 mmHg (35-45) 02/24/21 05:10 ABG pO2 72.4 mmHg (80.0-100.0) L 02/24/21 05:10 ABG HCO3 21.6 mmol/L (22-26) L 02/24/21 05:10 ABG O2 Saturation 93.3 02/24/21 05:10 ABG Base Excess -2.9 mmol/L (-2.0-2.0) L 02/24/21 05:10 Lencho Test N/a 02/24/21 05:10 A-a O2 Gradient 77.4 mmHg (5-10) H 02/24/21 05:10 Hematocrit 31.8 % (37-47) L 02/24/21 05:10 Hgb O2 Saturation 91.6 % (95-100) L 02/24/21 05:10 Carboxyhemoglobin 0.8 %THgb (0.4-20.1) 02/24/21 05:10 Methemoglobin 1.0 % (0.4-1.5) 02/24/21 05:10 Total Hemoglobin 10.4 g/dL (12-16) L 02/24/21 05:10 Sodium 147.0 mmol/L (131-143) H 02/24/21 05:10 Potassium 2.5 mmol/L (3.5-5.0) L 02/24/21 05:10 Glucose 211.0 mg/dL (70-115) H 02/24/21 05:10 Ionized Calcium 1.3 mmol/L (1.1-1.4) 02/24/21 05:10 Respiration Rate 16.0 % 02/23/21 16:43 O2 Delivery Device Vent 02/24/21 05:10 FiO2 100.0 % 02/24/21 05:10 Tidal Volume 0.40 02/24/21 05:10 PEEP 10.0 cmH20 02/24/21 05:10 Specimen Drawn By pgd 02/23/21 16:43 Health Policy Nurse ID Hinja 02/24/21 05:10 Sodium 146 mmol/L (136-145) H 02/25/21 04:37 Potassium 3.4 mmol/L (3.5-5.1) L 02/25/21 04:37 Chloride 114 mmol/L (98-107) H 02/25/21 04:37 Carbon Dioxide 21 mmol/L (22-29) L 02/25/21 04:37 Anion Gap 14.4 (5-19) 02/25/21 04:37 BUN 39 mg/dL (6-20) H 02/25/21 04:37 Creatinine 0.8 mg/dL (0.5-0.9) 02/25/21 04:37 GFR Calculation 79.4 mL/min (90-130) L 02/25/21 04:37 Glucose 242 mg/dL (65-115) H 02/25/21 04:37 POC Glucose 229 mg/dL (70-110) H 02/25/21 14:22 Estimat Average Glucose 154 02/24/21 06:13 Hemoglobin A1c 7.0 % (4.0-6.0) H 02/24/21 06:13 Calculated Osmolality 319 mOsm/kg (285-295) H 02/25/21 04:37 Lactic Acid 2.1 mmol/L (0.5-2.2) 02/22/21 02:40 Lactic Acid (Sepsis) 2.2 mmol/L (0.5-2.2) 02/22/21 13:45 Lactate 2.5 mmol/L (0.5-2.2) H 02/21/21 00:55 Calcium 8.2 mg/dL (8.5-10.5) L 02/25/21 04:37 Magnesium 2.2 mg/dL (1.7-2.3) 02/24/21 14:16 Iron 29 ug/dL (37-145) L 02/23/21 09:05 TIBC 225 mcg/dl 02/23/21 09:05 % Saturation 12.8 % (20-50) L 02/23/21 09:05 Unsat Iron Binding 196 ug/dL (112-347) 02/23/21 09:05 Total Bilirubin 1.8 mg/dL (0.15-1.2) H 02/25/21 04:37 Direct Bilirubin Cancelled 02/23/21 09:05 AST 43 U/L (0-32) H 02/25/21 04:37 ALT 20 U/L (0-33) 02/25/21 04:37 Alkaline Phosphatase 149 IU/L (35-105) H 02/25/21 04:37 Ammonia 109 umol/L (11-51) H 02/23/21 12:49 Lactate Dehydrogenase 253 U/L (135-214) H 02/25/21 04:37 C-Reactive Protein 160.6 mg/L (0.0-4.9) H 02/23/21 09:05 C-Reactive Protein Cancelled 02/23/21 09:05 NT-Pro-B Natriuret Pep 658 pg/mL (0-125) H 02/25/21 04:37 Total Protein 6.8 g/dL (6.6-8.7) 02/25/21 04:37 Albumin 2.4 g/dL (3.5-5.2) L 02/25/21 04:37 Globulin 4.4 g/dL (1.3-4.6) 02/25/21 04:37 Procalcitonin 2.57 ng/mL (0-0.5) H 02/24/21 06:13 TSH 0.78 uIU/mL (0.27-4.20) 02/23/21 09:05 Urine Color Yellow (Yellow) 02/21/21 02:04 Urine Appearance Clear (CLEAR) 02/21/21 02:04 Urine pH 6 (5-7) 02/21/21 02:04 Ur Specific [place] 1.015 (1.005-1.030) 02/21/21 02:04 Urine Protein Neg (Negative) 02/21/21 02:04 Urine Glucose (UA) Norm (Normal) 02/21/21 02:04 Urine Ketones Negative (Negative) 02/21/21 02:04 Urine Blood Neg (Negative) 02/21/21 02:04 Urine Nitrate Negative (Negative) 02/21/21 02:04 Urine Bilirubin 1+ (Negative) H 02/21/21 02:04 Urine Urobilinogen 8 mg/dL (Negative) H 02/21/21 02:04 Ur Leukocyte Esterase Negative (Negative) 02/21/21 02:04 Vancomycin Trough 4.5 ug/mL (10-15) L 02/25/21 07:25 Random Vancomycin 12.1 ug/mL (20.0-40.0) L 02/24/21 06:13 Salicylates < 0.3 mg/dL (3-10) L 02/21/21 00:55 Acetaminophen < 5.0 ug/mL (10-30) L 02/21/21 00:55 Ethyl Alcohol < 10 mg/dL (0-10) 02/21/21 00:55 Nasal/Oral COVID-19 PCR Not detected 02/24/21 14:00 HIV 1&2 Ab & HIV 1 Ag Non-reactive (Non-Reactiv) 02/24/21 06:13 HIV 1&2 Antibody Non-reactive (Non-Reactiv) 02/24/21 06:13 SARS-CoV-2 Ag (Rapid) Negative (Negative) 02/21/21 01:[address] 02/21/21 00:17 IMPRESSION: 1. No acute intracranial hemorrhage or mass effect. 2. No definite acute infarct by CT, see above. 3. Other findings discussed above. 4. Some limitations due to artifact from patient motion. Radiation Dose CTDIVOL = (mGy): DLP = 1670.1 (mGy-cm) Chest CTA 02/24/21 09:32 IMPRESSION: 1. No evidence of pulmonary embolus. 2. Shallow inspiration with diffuse bilateral groundglass infiltrates most consistent with COVID 19 pneumonia. 3. Airspace consolidation with compressive atelectasis in the lung bases with air bronchograms. 4. Enteric tube and ETT tube. 5. Fluid distended gallbladder. No gallbladder wall thickening or pericholecystic fluid. Liver Ultrasound 02/25/21 06:00 IMPRESSION: 1. Hepatomegaly with diffuse fatty infiltration and coarse echogenicity. No intrahepatic biliary ductal dilatation. 2. Mild fluid distention of the gallbladder which is otherwise normal in appearance. 3. Normal common bile duct. 4. No hydronephrosis in right kidney. Chest X-Ray 02/25/21 07:38 IMPRESSION: 1. Bilateral pulmonary infiltrates showing significant improvement since prior study. 2. The ET tube has moved cephalad several centimeters and now ends at about the level of T2. The tube could be advanced 2 to 3 cm for optimal position. The lungs remain well ventilated. Micro: Microbiology 02/23/21 10:45 Gram Stain - Final Sputum - Expectorated Sputum Sputum Culture - Final 02/23/21 12:49 Blood Culture - Preliminary Blood NEGATIVE TO DATE 02/23/21 09:05 Blood Culture - Preliminary Blood NEGATIVE TO DATE A&P Assessment and plan (1) Altered mental status: Status: Acute Qualifiers: Altered mental status type: unspecified Qualified Code(s): R41.82 - Altered mental status, unspecified (2) Respiratory failure with hypoxia: Status: Acute Qualifiers: Chronicity: acute Qualified Code(s): J96.01 - Acute respiratory failure with hypoxia (3) Septicemia: Status: Acute (4) Polysubstance abuse: Status: Acute (5) Staphylococcus aureus bacteremia: Status: Acute (6) Metabolic encephalopathy: Status: Acute (7) Methamphetamine abuse: Status: Acute (8) Hepatic encephalopathy: Status: Acute (9) Alcohol use disorder: Status: Acute (10) Acute hypokalemia: Status: Acute (11) Diabetes mellitus, type II: Status: Acute Qualifiers: 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 insulin use status Diabetes mellitus complication status: with other specified complication Qualified Code(s): E11.69 - Type 2 diabetes mellitus with other specified complication (12) Hypothyroid: Status: Acute Qualifiers: Hypothyroidism type: acquired Qualified Code(s): E03.9 - Hypothyroidism, unspecified (13) E-coli UTI: Status: Acute Overall: 40-year-old with past medical history of polysubstance abuse (opiates, benzodiazepines, amphetamine, marijuana, alcohol), diabetes mellitus, hypothyroidism, history of heart failure, admitted to ICU for altered mental status secondary to sepsis/drug overdose/hepatic encephalopathy; hypoxic respiratory failure secondary to fluid overload versus pneumonia, MSSA bacteremia. #Altered mental status-sepsis/drug overdose/hepatic encephalopathy #U tox positive for opiates, benzodiazepines, amphetamines, marijuana -Currently sedated with propofol -Ammonia 109; -Continue lactulose 10 g p.o. every 6 hours scheduled-target 2-3 soft bowel movements per day -Patient on Suboxone #Acute hypoxic respiratory failure-possible aspiration pneumonia/fluid overload secondary to drugs #MSSA bacteremia-3/3 blood cultures positive -ABG yesterday 7.3 /72/20 1/93% on CMV 400/10/100% -Now CMV 400/16/10/55% FiO2 -saturating 99% -CTA 02/24/2021: No evidence of PE. Shallow inspiration with diffuse bilateral GGO consistent with COVID-19 pneumonia. Airspace consolidation with compressive atelectasis in the lung bases with air bronchograms -Chest x-ray today showed significant improvement of bilateral infiltrates -COVID-19 rapid antigen and PCR-both are negative x2; respiratory viral panel still pending -Urine Legionella and other bacterial antigens negative -Blood cultures 3/3 positive for MSSA bacteremia -Patient on cefazolin and Flagyl to cover anaerobes-ID consulted and appreciate recommendations -Elevated procalcitonin and inflammatory markers-likely due to bacterial infection -CTA today no evidence of septic emboli or microabscesses in lungs -BNP 1153, TTE technically difficult study and appears grossly normal LV function -TTE 02/24/2021: Ruled out any vegetations -I/O/N+ 500 cc; ; -2.8 L since admission -Lasix 40 mg daily to keep patient net negative to even -On Solu-Medrol 40 mg IVP every 8-recommended to taper down #A. fib RVR-due to drug overdose-now rate controlled and normal sinus rhythm -Received one dose of amiodarone -Continue close cardiac monitoring -Supplement to keep mg > 2 and k > 3.5 #Deranged LFTs-hepatitis C antibody positive vs alcoholic pattern -History of alcohol abuse -Monitor LFTs -Avoid hepatotoxic medications #Hypokalemia 3.4-supplemented Kcl 40 Meq ; magnesium 2.2 #Hyponatremia 146 -Monitor sodium-Free water 200 mL every 6 hour through NG tube - Monitor and supplement to keep > 3.5 - check mg and supplement if necessary to keep > 2 #Diabetes mellitus-sugars moderately controlled -Currently on scale coverage #Hypothyroidism -Currently on levothyroxine 100 MCG p.o. daily DVT prophylaxis-Lovenox 40 mg daily GI prophylaxis-PPI; patient intubated more than 48 hours and currently on steroids Condition-gradually improving, prognosis-guarded Recommendations conveyed to hospitalist, RT, RN covering the patient Attestations Medical Necessity Statement*: Patient requires further hospitalization for management of severe sepsis, Staphylococcus bacteremia, acute metabolic encephalopathy secondary to withdrawal from polysubstance abuse, respiratory failure secondary to fluid overload due to drug overdose-currently on ventilator Critical Care Time: The high probability of a clinically significant, sudden or life threatening deterioration of the patient's [respiratory, cardiac, ID] system(s) required my full and direct attention, intervention and personal management. The critical care time is as shown. This time is in addition to time spent performing any reported procedures but includes the following: [x] Data and vital sign review and interpretation [x] Patient assessment, examination and intervention [x] Documentation [x] Medication orders and management Coding Level of Care Code Established Pt Acute Lan/Wan Engineer for Chg Fwd Patient Type Established History Comprehensive Exam Comprehensive Medical Decision Making High Complexity Diagnoses Altered mental status R41.82 Altered mental status type: unspecified Respiratory failure with hypoxia J96.01 Chronicity: acute Septicemia A41.9 Polysubstance abuse F19.10 Staphylococcus aureus bacteremia R78.81; B95.61 Metabolic encephalopathy G93.41 Methamphetamine abuse F15.10 Hepatic encephalopathy K72.90 Alcohol use disorder Acute hypokalemia E87.6 Diabetes mellitus, type II E11.69 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
--- NOTE | 2021-02-25 15:23 | P.PN_ITS ---
Subjective Subjective: Interval history: No acute events overnight. Patient on ventilator support PEEP of 10, FiO2 of 65%, tidal volume of 400. Has remained hemodynamically stable and afebrile. Off pressors. Sedated on propofol at 40 and Suboxone. Documented urine output of 1850 yesterday. Having thick secretions from ET tube. Medications: Reviewed: Yes Vitals/I&O/Wt Last Vital Signs Temp 98.4 F 02/25/21 07:00 Pulse 67 02/25/21 14:02 Resp 18 02/25/21 13:59 BP 122/67 02/25/21 11:15 Pulse Ox 99 02/25/21 13:59 02/25/21 02/25/21 02/25/21 06:59 14:59 22:59 Intake Total 350 / 2366.545 303.487 / 303.487 Output Total 550 / 1850 Balance -200 / 516.545 303.487 / 303.487 Physical Exam Narrative: EXAM NARRATIVE: General: Sedated, ventilated, morbidly obese, multiple excoriation present all over the body. HEENT: PERRLA, pupils bilaterally equal and reactive Chest: Bilateral coarse crackles present more in the right middle and lower zone, left lower zone, equal good air entry bilaterally CVS: S1-S2 regular, no murmurs, no tachycardia, no gallops, no rubs Abdomen: Soft, nontender, no organomegaly, bowel sounds present Neuro: Sedated, ventilated, pupils bilaterally equal sluggishly reactive Urinary Catheter Management^: Boykin: Cath Placed During This Visit: yes Reason for Continuing Indwelling Catheter: Accurate Measurement of Urinary Output in Critically Ill Patients Urinary Catheter Date of Insertion: 02/22/21 Urinary Catheter Time of Insertion: 09:00 Data : 02/25/21 04:37 02/25/21 04:37 Micro: Microbiology 02/23/21 10:45 Gram Stain - Final Sputum - Expectorated Sputum Sputum Culture - Final 02/23/21 12:49 Blood Culture - Preliminary Blood NEGATIVE TO DATE A&P Assessment and plan (1) Staphylococcus aureus bacteremia: Status: Acute (2) Septicemia: Status: Acute (3) Polysubstance abuse: Status: Acute (4) Respiratory failure with hypoxia: Status: Acute Qualifiers: Chronicity: acute Qualified Code(s): J96.01 - Acute respiratory failure with hypoxia (5) Pneumonia: Status: Acute Qualifiers: Laterality: bilateral Lung location: unspecified part of lung Pneumonia type: due to methicillin-sensitive Staphylococcus aureus (MSSA) Qualified Code(s): J15.211 - Pneumonia due to Methicillin susceptible Staphylococcus aureus (6) Metabolic encephalopathy: Status: Acute (7) E-coli UTI: Status: Acute (8) Methamphetamine abuse: Status: Acute (9) Alcohol use disorder: Status: Acute (10) Diabetes mellitus, type II: Status: Acute Qualifiers: 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 Urine culture positive for E. coli. Sensitivity appreciated. Keep mean arterial pressure over 65. Strict input output charting. Appreciate ID and Pulm recommendations. MRSA negative, Urine Legionella, bacterial antigen negative. Repeat Bcx negative so far. Sputum Cx appreciated. Abx changed as per ID. Continue with Cefaziolin. Will cover for MSSA and E.coli. Flagyl 500mg Q8h for possible aspiration. RENEE appreciated-negative for IE Hypoxic respiratory failure: Most likely secondary to acute metabolic encep halopathy, chemical pneumonitis versus bacterial pneumonia versus viral pneumonitis. Repeat chest x-ray done today shows resolution of consolidations. Repeat Covid PCR sent yesterday. Continue with isolation precaution. Respiratory viral panel sent. Wean off oxygen supplementation as possible keeping saturation over 90%. Will not wean steroids today. Continue with Solu-Medrol 40 every 8 hourly. DuoNebs every 6 hour, budesonide twice daily. Hypernatremia: Mildly elevated today. Free water deficit 2.3 L. Start on tube feeds with Jevity 15 cc/h uptitrating 15 cc every 4 hour with goal of 55 to 65/h. Free water flushes 250 cc every 6 hours. Repeat BMP in evening. Acute metabolic encephalopathy: Most likely secondary to severe sepsis along with withdrawal from polysubstance abuse and pain medications along with possible hepatic encephalopathy. We will plan to transition from propofol to Precedex today depending on her mentation and agitation level. CT head from admission negative for any acute abnormality. Ammonia levels at elevated. Continue with lactulose 10 mg every 6 hourly till patient have at least 2-3 soft bowel movements. Repeat ammonia levels daily. Transaminitis: Most likely from severe sepsis along with history of hepatitis C. Check hep C RNA level. LDH and liver ultrasound results appreciated. HIV negative. Full code. Lovenox will help with DVT prophylaxis. Start on tube feeds as above. Protonix OPD prophylaxis. Patient's care discussed with patient's mother over the phone. All the concerns and questions were answered. Severely guarded prognosis. Attestations Medical Necessity Statement*: Requires further hospitalization for management of acute right metabolic encephalopathy in setting of polysubstance abuse, sepsis, MSSA bacteremia, ventilator dependent hypoxic respiratory failure Critical Care Time: The high probability of a clinically significant, sudden or life threatening deterioration of the patient's sedation, ventilator setting, renal system(s) required my full and direct attention, intervention and personal management. The critical care time is as shown. This time is in addition to time spent performing any reported procedures but includes the following: [x] Data and vital sign review and interpretation [x] Patient assessment, examination and intervention [x] Documentation [x] Medication orders and management Critical Care Time (min): 90 Coding Level of Care Code Acute Microbiology Lab Technician for [facility] Fwd Diagnoses Staphylococcus aureus bacteremia R78.81; B95.61 Septicemia A41.9 Polysubstance abuse F19.10 Respiratory failure with hypoxia J96.01 Chronicity: acute Pneumonia J15.211 Laterality: bilateral Lung location: unspecified part of lung Pneumonia type: due to methicillin-sensitive Staphylococcus aureus (MSSA) Metabolic encephalopathy G93.41 E-coli UTI N39.0; B96.20 Methamphetamine abuse F15.10 Alcohol use disorder Diabetes mellitus, type II E11.69 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
--- NOTE | 2021-02-25 19:33 | PC.NURSE ---
[id number] Teague. Reviewed vital signs, labs, and ECHO results. Reported ET tube placement 19 at the lip. Orders for chest x ray. Discussed possible need for bronchoscopy this afternoon. Plan to start tube feeding and free water flushes after bronch. [id number] Teague for update. Orders for IV Lasix and KCL. No bronch needed at this time. Start tube feeding per order.
[2021-02-25 20:23] LABS: Anion Gap 13.6 (5-19); Blood Urea Nitrogen 37 mg/dL (6-20); Carbon Dioxide 22 mmol/L (22-29); Chloride 112 mmol/L (98-107); Glomerular Filtration Rate 92.7 mL/min (90-130); Glucose 265 mg/dL (65-115); Osmolality Calculated 316 mOsm/kg (285-295); Potassium 3.6 mmol/L (3.5-5.1); Sodium 144 mmol/L (136-145)
[2021-02-25 20:44] LABS: Glucose Point of Care 309 mg/dL (70-110)
[2021-02-25] MEDS: propofol 1,000 MG/100 ML INJ 16.33 MG IV (21:23)
[2021-02-26] VITALS (85 sets, daily range): BP systolic 112–180; BP diastolic 54–93; PULSE 63–98; RESP 10–22; TEMP 36.2–37.5; O2SAT 91–98
[2021-02-26] MEDS: metroNIDAZOLE IV 500 MG/100 ML PREMIX 100 MG IV (00:14)
[2021-02-26] MEDS: propofol 1,000 MG/100 ML INJ 16.33 MG IV (02:51)
[2021-02-26] MEDS: ipratropium-albuterol 3 mL Neb INHALATION ×4 (02:52→21:42)
[2021-02-26 03:34] LABS: Glucose Point of Care 276 mg/dL (70-110)
[2021-02-26] MEDS: lactulose oral liq 20 gm/30 mL UDC 10 GM PO ×4 (04:06→16:00)
[2021-02-26 05:04] LABS: Basophils % 0.4 %; Hematocrit 30.8 % (37.0-47.0); Hemoglobin 9.2 g/dL (11.5-15.3); Lymphocytes # 1.4 10^3/uL (0.8-4.8); Lymphocytes % 18.5 %; Mean Corpuscular HGB Conc 29.9 g/dL (30.0-36.0); Mean Corpuscular Hemoglobin 23.2 pg (28.0-34.0); Mean Corpuscular Volume 77.6 fL (81-99); Monocytes # 0.5 10^3/uL (0.2-0.9); Neutrophils # 5.52 10^3/uL (1.8-7.7); Neutrophils % 72.8 %; Nucleated Red Blood Cells % 0.5 %; Platelet Count 71 10^3/cmm (130-400); Red Blood Count 3.97 10^6/uL (4.1-5.3); Red Cell Distribution Width 24.4 % (12.1-15.1); White Blood Count 7.6 10^3/uL (4.0-10.0)
[2021-02-26 05:22] LABS: ABG PCO2 37.1 mmHg (35-45); ABG PH Result 7.41 (7.35-7.45); Base Excess ABG -0.9 mmol/L (-2.0-2.0); Blood Gas Allen Test Pos; Blood Gas Sample Site Radial, left; Blood Gas Sample Type Arterial; HCO3 ABG 23.5 mmol/L (22-26); Oxygen Device VENT; PO2 ABG 75.5 mmHg (80.0-100.0)
[2021-02-26 05:24] LABS: Alanine Aminotransferase 18 U/L (0-33); Albumin Level 2.5 g/dL (3.5-5.2); Alkaline Phosphatase 166 IU/L (35-105); Anion Gap 13.6 (5-19); Aspartate Amino Transferase 38 U/L (0-32); Blood Urea Nitrogen 40 mg/dL (6-20); Calcium 8.3 mg/dL (8.5-10.5); Carbon Dioxide 23 mmol/L (22-29); Chloride 116 mmol/L (98-107); Globulin 4.3 g/dL (1.3-4.6); Glomerular Filtration Rate 110.7 mL/min (90-130); Glucose 281 mg/dL (65-115); Osmolality Calculated 328 mOsm/kg (285-295); Potassium 3.6 mmol/L (3.5-5.1); Sodium 149 mmol/L (136-145); Total Bilirubin 1.3 mg/dL (0.15-1.2); Total Protein 6.8 g/dL (6.6-8.7)
[2021-02-26 05:28] LABS: Procalcitonin 1.23 ng/mL (0-0.5)
[2021-02-26 05:42] LABS: Slide Review Slide Review Perform
--- NOTE | 2021-02-26 06:00 | XR_ITS ---
WS: [id number] XR chest 1V portable [id number] REASON FOR EXAM: covid FINDINGS: Endotracheal tube at T3/T4. Nasogastric tube beyond the gastric fundus transverse right subclavian ve in central venous catheter in proper position. Dense lung consolidation and possibly pleural fluid in the left lower chest without significant inter briana change. Some interval resolution of infiltrative changes in the right lung base. XR/XR chest 1V portable [id number] IMPRESSION: Interval improvement as above.
[2021-02-26 06:40] LABS: NT Pro B Type Natriuretic Pept 471 pg/mL (0-125)
[2021-02-26 07:57] LABS: Glucose Point of Care 407 mg/dL (70-110)
[2021-02-26 07:57] LABS: Glucose Point of Care 413 mg/dL (70-110)
[2021-02-26] MEDS: budesonide 0.5 mg/2 mL Neb INHALATION ×2 (08:54→21:42)
[2021-02-26] MEDS: enoxaparin 40 mg/0.4 mL Syringe SUBCUT (09:10)
[2021-02-26] MEDS: levothyroxine 100 mcg Tablet PO (09:10)
[2021-02-26] MEDS: dextrose 5%-sod chloride 0.45% 1,000 ML 75 ML IV ×2 (09:10→23:45)
--- NOTE | 2021-02-26 09:11 | PC.CHAP ---
Pastoral Care Encounter/Spiritual Assessment Type of Contact [] Declined cyber special agent visit [] Patient/Family/Request visit [] Outpatient visit [] Follow-up visit [] Physician referral [] Code/Alert [x] Routine visit [] Staff referral [] Actively dying [x] Patient sleeping [] Family support [] [] Out of room [] Palliative care [] [] Receiving care in room [] Pre-surgical visit [] Trauma [] Long length of stay [x] ICU visit [x] Other: ventilator Relational/Emotional Strength [] Patient feels connected with others/family/visitors/staff [] Distress [] Loneliness/isolation [] Abandonment Spirituality of Patient [] Person of Connie [] Attends Protestant of their Connie [] Believes in Prayer [] Reads Bible or Sabianist materials [] There are Spiritual issues to be addressed Relays [employer] Interventions [x] Prayer [] Active listening [] Non-anxious presence [] Spiritual/emotional support [] Crisis/trauma care [] Spiritual counseling [] Bereavement support [] Provided bereavement packet [] Provided Bible/devotional materials [] Provided toy/stuffed animal, coloring book to patient or family member [] Provided Communion [] Anointing/[place] [] Salvation [x] Completed spiritual assessment [] Other: Impact on Illness or Injury [] Angry [] Fearful [] Anxious [] Often cries [] Exhaustion [] Unable to work [] Unable to attend religious [] Unable to walk/stand [] Unable to read [] Unable to drive [] Unable to eat/drink [] Unable to sleep [] Unable to be with family [] Patient intubated [] Other: Summary Time spent with patient
[2021-02-26] MEDS: dexmedetomidine 400 MCG in sodium chloride 0.9% (100 ml) 100 ML IV (09:33)
[2021-02-26 11:13] LABS: Ammonia 108 umol/L (11-51)
[2021-02-26 13:42] LABS: HEP C RNA Viral Load Quant <1.18 NOT DETECTED Log IU/mL (NOT DETECTED); HEP C RNA Viral Load Quant <15 NOT DETECTED IU/mL (NOT DETECTED)
--- NOTE | 2021-02-26 14:48 | PC.NUTR ---
Tube feeding recommendations: Previous TF of Jevity 1.2 with goal rate of 65 cc/hr provides 1872 kcal, 2759 ml H2O and 87 grams protein. If appropriate, due to patients PMH of DM, recommend consideration of Glucerna 1.2 with a goal rate of 65 cc/hr, with 100 cc H2O flushes q4 hours, which will provide 1872 kcal, 1856 ml H2O and 94 grams protein. Pt receiving additional 431 kcal from propofol, as well as 306 kcal from D5 1/[address] assessment for further details.
[2021-02-26 15:36] LABS: Glucose Point of Care 417 mg/dL (70-110)
--- NOTE | 2021-02-26 17:41 | P.PN_ITS ---
Subjective Subjective: Interval history: No events overnight. Patient has remained hemodynamically stable, afebrile. During the day sedation was switched off. Patient was given spontaneous breathing trial. Patient was put back on full ventilator support after poor mental status. Currently she is on minimal ventilator support. Patient has not had a bowel movement in 3 days even though she is getting lactulose. Medications: Reviewed: Yes Vitals/I&O/Wt Last Vital Signs Temp 98.2 F 02/26/21 11:00 Pulse 84 02/26/21 14:08 Resp 15 02/26/21 16:48 BP 132/69 02/26/21 14:00 Pulse Ox 94 02/26/21 16:48 02/26/21 02/26/21 02/26/21 06:59 14:59 22:59 Intake Total 149.271 / 799.329 60 / 60 Output Total 750 / 2900 675 / 675 Balance -600.729 / -2100.671 -615 / -615 Physical Exam Narrative: EXAM NARRATIVE: General: Sedated, ventilated, morbidly obese, multiple excoriation present all over the body. HEENT: PERRLA, pupils bilaterally equal and reactive Chest: Bilateral coarse crackles present more in the right middle and lower zone, left lower zone, equal good air entry bilaterally CVS: S1-S2 regular, no murmurs, no tachycardia, no gallops, no rubs Abdomen: Soft, nontender, no organomegaly, bowel sounds present Neuro: Sedated, ventilated, pupils bilaterally equal sluggishly reactive Urinary Catheter Management^: [place]: Cath Placed During This Visit: yes Reason for Continuing Indwelling Catheter: Accurate Measurement of Urinary Output in Critically Ill Patients Urinary Catheter Date of Insertion: 02/22/21 Urinary Catheter Time of Insertion: 09:00 Data : 02/26/21 03:59 02/26/21 03:59 Micro: Microbiology 02/25/21 11:45 Gram Stain - Final Sputum - Endotracheal Tube Aspirate Sputum Culture - Preliminary 02/21/21 01:36 Blood Culture - Final Blood Staphylococcus aureus 02/21/21 00:55 Blood Culture - Final Blood Staphylococcus aureus A&P Assessment and plan (1) Staphylococcus aureus bacteremia: Status: Acute (2) Septicemia: Status: Acute (3) Polysubstance abuse: Status: Acute (4) Respiratory failure with hypoxia: Status: Acute Qualifiers: Chronicity: acute Qualified Code(s): J96.01 - Acute respiratory failure with hypoxia (5) Pneumonia: Status: Acute Qualifiers: Laterality: bilateral Lung location: unspecified part of lung Pneumonia type: due to methicillin-sensitive Staphylococcus aureus (MSSA) Qualified Code(s): J15.211 - Pneumonia due to Methicillin susceptible Staphyl ococcus aureus (6) Metabolic encephalopathy: Status: Acute (7) E-coli UTI: Status: Acute (8) Methamphetamine abuse: Status: Acute (9) Alcohol use disorder: Status: Acute (10) Diabetes mellitus, type II: Status: Acute Qualifiers: Diabetes mellitus manager intermediate insulin use: unspecified intermediate insulin use status Diabetes mellitus complication status: with other specified c omplication Qualified Code(s): E11.69 - Type 2 diabetes mellitus with other specified complication (11) Hypertension: Status: Acute Qualifiers: Hypertension type: essential hypertension Qualified Code(s): I10 - Essential (primary) hypertension (12) Anxiety with depression: Status: Acute Additional A&P Information Severe sepsis: MSSA bacteremia: Most likely secondary to pneumonia and UTI. Urine culture positive for E. coli. Sensitivity appreciated. Keep mean arterial pressure over 65. Strict input output charting. Appreciate ID and Pulm recommendations. MRSA negative, Urine Legionella, bacterial antigen negative. Repeat Bcx negative so far. Sputum Cx appreciated. Abx changed as per ID. Continue with Cefaziolin. Will cover for MSSA and E.coli. Patient has finished 5-day course of Flagyl. RENEE appreciated-negative for IE Hypoxic respiratory failure: Most likely secondary to acute metabolic encephalopathy, chemical pneumonitis versus bacterial pneumonia versus viral pneumonitis. Repeat chest x-ray done today shows resolution of consolidations. Repeat Covid PCR negative. Respiratory viral panel sent. On minimal ventilator support for now. Wean Solu-Medrol to 40 mg every 12 hourly. DuoNebs every 6 hour, budesonide twice daily. Hypernatremia: Mildly elevated today. Free water deficit 2.3 L. Continue with free water flushes to 50 cc every 4 hours. D5 half NS at 75 cc/h. Repeat BMP in evening. Hold off on any further Lasix. Acute metabolic encephalopathy: Most likely secondary to hepatic encephalopathy along with hypernatremia and severe sepsis. Hepatic encephalopathy: Continue lactulose 10 mg every 4 hours through NG tube. Lactulose enema. Repeat ammonia levels. Transaminitis: Most likely from severe sepsis along with history of hepatitis C. Check hep C RNA level. LDH and liver ultrasound results appreciated. HIV negative. Full code. Lovenox will help with DVT prophylaxis. Start on tube feeds as above. Protonix PUD prophylaxis. Patient's care discussed with patient's mother over the phone. All the concerns and questions were answered. Severely guarded prognosis. Case discussed with pulmonology. Appreciate recommendations. Attestations Medical Necessity Statement*: Requires further hospitalization for management of MSSA bacteremia, acute metabolic encephalopathy secondary to hepatic enceph alopathy, hypernatremia, ventilator dependent Critical Care Time: The high probability of a clinically significant, sudden or life threatening deterioration of the patient's [respiratory, renal, neurological] system(s) required my full and direct attention, intervention and personal management. The critical care time is as shown. This time is in addition to time spent performing any reported procedures but includes the following: [x] Data and vital sign review and interpretation [x] Patient assessment, examination and intervention [x] Documentation [x] Medication orders and management Critical Care Time (min): 90 Coding Level of Care Code Acute Music Video Director for [facility] Fwd Diagnoses Staphylococcus aureus bacteremia R78.81; B95.61 Septicemia A41.9 Polysubstance abuse F19.10 Respiratory failure with hypoxia J96.01 Chronicity: acute Pneumonia J15.211 Laterality: bilateral Lung location: unspecified part of lung Pneumonia type: due to methicillin-sensitive Staphylococcus aureus (MSSA) Metabolic encephalopathy G93.41 E-coli UTI N39.0; B96.20 Methamphetamine abuse F15.10 Alcohol use disorder Diabetes mellitus, type II E11.69 Diabetes mellitus manager intermediate insulin use: unspecified intermediate insulin use status Diabetes mellitus complication status: with other specified complication Hypertension I10 Hypertension type: essential hypertension Anxiety with depression F41.8
[2021-02-26 18:13] LABS: Anion Gap 12.9 (5-19); Blood Urea Nitrogen 38 mg/dL (6-20); Calcium 8.2 mg/dL (8.5-10.5); Carbon Dioxide 24 mmol/L (22-29); Chloride 115 mmol/L (98-107); Glomerular Filtration Rate 136.6 mL/min (90-130); Glucose 394 mg/dL (65-115); Osmolality Calculated 331 mOsm/kg (285-295); Potassium 3.9 mmol/L (3.5-5.1); Sodium 148 mmol/L (136-145)
--- NOTE | 2021-02-26 19:43 | PC.NURSE ---
[address] Teague. Reported elevated blood sugar. Sedation off at time of shift change. Plan for breathing trial. Tube feedings stopped in preparation for extubation. IVF fluids started for elevated Na level. Will make determination about extubation at 1400. Tube feedings will be restarted with Glucerna if patient remains on vent. Lactulose will be increased to decrease ammonia level and lactulose enemas will be started if patient does not have a BM. Labs will be repeated at 1700. 1500 Patient unable to follow commands and remains unresponsive off sedation. Plan to remain on vent today. Restart tube feedings and sedation.
[2021-02-26] MEDS: lactulose oral liq 20 gm/30 mL UDC 200 GM PR (20:30)
[2021-02-26 20:31] LABS: Glucose Point of Care 413 mg/dL (70-110)
--- NOTE | 2021-02-26 21:04 | PC.NURSE ---
rectal tube inserted at this time. lactulose administered. rectal tube fell out balloon intact. patient passed constipated bowel movement, digital impaction performed. lactulose seemed to be mostly retained at this time. rectal tube was not reinserted due to evidence of impaction.
[2021-02-26] MEDS: propofol 1,000 MG/100 ML INJ 26.13 MG IV (21:13)
--- NOTE | 2021-02-26 22:06 | P.PN_ITS ---
Subjective Subjective: Interval history: Pt seen at bedside today morning and evening rounds sedation stopped but pt was still drowsy no bm yet - started on lactulose KY and increasing frequency to achieve bm labs and imaging reviewed started back on tube feeding Medications: Reviewed: Yes Vitals/I&O/Wt Last Vital Signs Temp 99.5 F 02/26/21 19:30 Pulse 73 02/26/21 21:44 Resp 18 02/26/21 21:39 BP 138/80 02/26/21 21:00 Pulse Ox 94 02/26/21 21:39 02/26/21 02/26/21 02/26/21 06:59 14:59 22:59 Intake Total 149.271 / 799.329 160 / 160 358.583 / 518.583 Output Total 750 / 2900 675 / 675 450 / 1125 Balance -600.729 / -2100.671 -515 / -515 -91.417 / -606.417 Physical Exam Narrative: EXAM NARRATIVE: EXAM NARRATIVE: PHYSICAL EXAM: General: lying in bed, sedated and intubated. 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 SKIN: no rash LDA: # CVC: Right SVC 02/23/2021 # Boykin: 02/22/2021 Urinary Catheter Management^: Boykin: Cath Placed During This Visit: yes Reason for Continuing Indwelling Catheter: Accurate Measurement of Urinary Output in Critically Ill Patients Urinary Catheter Date of Insertion: 02/22/21 Urinary Catheter Time of Insertion: 09:00 Data : 02/26/21 03:59 02/26/21 17:05 Other Labs: Laboratory Results WBC 7.6 10^3/uL (4.0-10.0) 02/26/21 03:59 RBC 3.97 10^6/uL (4.1-5.3) L 02/26/21 03:59 Hgb 9.2 g/dL (11.5-15.3) L 02/26/21 03:59 Hct 30.8 % (37.0-47.0) L 02/26/21 03:59 MCV 77.6 fL (81-99) L 02/26/21 03:59 MCH 23.2 pg (28.0-34.0) L 02/26/21 03:59 MCHC 29.9 g/dL (30.0-36.0) L 02/26/21 03:59 RDW 24.4 % (12.1-15.1) H 02/26/21 03:59 Plt Count 71 10^3/cmm (130-400) L 02/26/21 03:59 MPV Not Reportable 02/26/21 03:59 Neut % (Auto) 72.8 % 02/26/21 03:59 Lymph % (Auto) 18.5 % 02/26/21 03:59 Mcmullen % (Auto) 7.0 % 02/26/21 03:59 Eos % (Auto) 0.0 % 02/26/21 03:59 Baso % (Auto) 0.4 % 02/26/21 03:59 Neut # (Auto) 5.52 10^3/uL (1.8-7.7) 02/26/21 03:59 Lymph # (Auto) 1.4 10^3/uL (0.8-4.8) 02/26/21 03:59 Mcmullen # (Auto) 0.5 10^3/uL (0.2-0.9) 02/26/21 03:59 Eos # (Auto) 0.0 10^3/uL (0.0-0.8) 02/26/21 03:59 Baso # (Auto) 0.0 10^3/uL (0.0-0.1) 02/26/21 03:59 Nucleated RBC % (auto) 0.5 % 02/26/21 03:59 Nucleated RBCs # 0.0 /100WBC 02/26/21 03:59 Hypochromasia 1+ H 02/25/21 04:37 Anisocytosis 3+ H 02/25/21 04:37 Macrocytosis Trace 02/22/21 02:40 Target Cells 2+ H 02/25/21 04:37 Ovalocytes Trace 02/22/21 02:40 Bren Cells 2+ H 02/22/21 02:40 ESR 75 mm/hr (0-15) H 02/23/21 09:05 Haptoglobin 133.0 mg/L (30-200) 02/23/21 09:05 Haptoglobin Cancelled 02/23/21 09:05 PT 19.60 SECONDS (12.1-14.9) H 02/23/21 09:05 INR 1.62 (0.8-1.2) H 02/23/21 09:05 APTT 35.1 SECONDS (23.9-36.7) 02/23/21 09:05 Fibrinogen 533 mg/dL (174-498) H 02/23/21 09:05 Fibrinogen Cancelled 02/23/21 09:05 D-Dimer 3.29 ug/mIFEU (0-0.59) H 02/23/21 09:05 D-Dimer Cancelled 02/23/21 09:05 Specimen Type Arterial 02/26/21 04:50 Sample Site Radial, left 02/26/21 04:50 ABG pH 7.41 (7.35-7.45) 02/26/21 04:50 ABG pCO2 37.1 mmHg (35-45) 02/26/21 04:50 ABG pO2 75.5 mmHg (80.0-100.0) L 02/26/21 04:50 ABG HCO3 23.5 mmol/L (22-26) 02/26/21 04:50 ABG O2 Saturation 83.2 02/25/21 05:29 ABG Base Excess -0.9 mmol/L (-2.0-2.0) 02/26/21 04:50 Lencho Test Pos 02/26/21 04:50 A-a O2 Gradient 48.6 mmHg (5-10) H 02/25/21 05:29 Hematocrit 30.0 % (37-47) L 02/26/21 04:50 Hgb O2 Saturation 81.5 % (95-100) L 02/25/21 05:29 Carboxyhemoglobin 1.0 %THgb (0.4-20.1) 02/25/21 05:29 Methemoglobin 1.0 % (0.4-1.5) 02/25/21 05:29 Total Hemoglobin 10.7 g/dL (12-16) L 02/25/21 05:29 Sodium 150.0 mmol/L (131-143) H 02/25/21 05:29 Potassium 3.4 mmol/L (3.5-5.0) L 02/25/21 05:29 Glucose 246.0 mg/dL (70-115) H 02/25/21 05:29 Ionized Calcium 1.3 mmol/L (1.1-1.4) 02/25/21 05:29 Respiration Rate 16.0 % 02/23/21 16:43 O2 Delivery Device Vent 02/26/21 04:50 FiO2 45.0 % 02/26/21 04:50 Tidal Volume 0.40 02/26/21 04:50 PEEP 10.0 cmH20 02/26/21 04:50 Specimen Drawn By pgd 02/23/21 16:43 Agent Producer ID Hinja 02/26/21 04:50 Sodium 148 mmol/L (136-145) H 02/26/21 17:05 Potassium 3.9 mmol/L (3.5-5.1) 02/26/21 17:05 Chloride 115 mmol/L (98-107) H 02/26/21 17:05 Carbon Dioxide 24 mmol/L (22-29) 02/26/21 17:05 Anion Gap 12.9 (5-19) 02/26/21 17:05 BUN 38 mg/dL (6-20) H 02/26/21 17:05 Creatinine 0.5 mg/dL (0.5-0.9) 02/26/21 17:05 GFR Calculation 136.6 mL/min (90-130) H 02/26/21 17:05 Glucose 394 mg/dL (65-115) H 02/26/21 17:05 POC Glucose 413 mg/dL (70-110) H 02/26/21 20:29 Estimat Average Glucose 154 02/24/21 06:13 Hemoglobin A1c 7.0 % (4.0-6.0) H 02/24/21 06:13 Calculated Osmolality 331 mOsm/kg (285-295) H 02/26/21 17:05 Lactic Acid 2.1 mmol/L (0.5-2.2) 02/22/21 02:40 Lactic Acid (Sepsis) 2.2 mmol/L (0.5-2.2) 02/22/21 13:45 Lactate 2.5 mmol/L (0.5-2.2) H 02/21/21 00:55 Calcium 8.2 mg/dL (8.5-10.5) L 02/26/21 17:05 Magnesium 2.2 mg/dL (1.7-2.3) 02/24/21 14:16 Iron 29 ug/dL (37-145) L 02/23/21 09:05 TIBC 225 mcg/dl 02/23/21 09:05 % Saturation 12.8 % (20-50) L 02/23/21 09:05 Unsat Iron Binding 196 ug/dL (112-347) 02/23/21 09:05 Total Bilirubin 1.3 mg/dL (0.15-1.2) H 02/26/21 03:59 Direct Bilirubin Cancelled 02/23/21 09:05 AST 38 U/L (0-32) H 02/26/21 03:59 ALT 18 U/L (0-33) 02/26/21 03:59 Alkaline Phosphatase 166 IU/L (35-105) H 02/26/21 03:59 Ammonia 108 umol/L (11-51) H 02/26/21 10:47 Lactate Dehydrogenase 253 U/L (135-214) H 02/25/21 04:37 C-Reactive Protein 160.6 mg/L (0.0-4.9) H 02/23/21 09:05 C-Reactive Protein Cancelled 02/23/21 09:05 NT-Pro-B Natriuret Pep 471 pg/mL (0-125) H 02/26/21 03:59 Total Protein 6.8 g/dL (6.6-8.7) 02/26/21 03:59 Albumin 2.5 g/dL (3.5-5.2) L 02/26/21 03:59 Globulin 4.3 g/dL (1.3-4.6) 02/26/21 03:59 Procalcitonin 1.23 ng/mL (0-0.5) H 02/26/21 03:59 TSH 0.78 uIU/mL (0.27-4.20) 02/23/21 09:05 Urine Color Yellow (Yellow) 02/21/21 02:04 Urine Appearance Clear (CLEAR) 02/21/21 02:04 Urine pH 6 (5-7) 02/21/21 02:04 Ur Specific [place] 1.015 (1.005-1.030) 02/21/21 02:04 Urine Protein Neg (Negative) 02/21/21 02:04 Urine Glucose (UA) Norm (Normal) 02/21/21 02:04 Urine Ketones Negative (Negative) 02/21/21 02:04 Urine Blood Neg (Negative) 02/21/21 02:04 Urine Nitrate Negative (Negative) 02/21/21 02:04 Urine Bilirubin 1+ (Negative) H 02/21/21 02:04 Urine Urobilinogen 8 mg/dL (Negative) H 02/21/21 02:04 Ur Leukocyte Esterase Negative (Negative) 02/21/21 02:04 Vancomycin Trough 4.5 ug/mL (10-15) L 02/25/21 07:25 Random Vancomycin 12.1 ug/mL (20.0-40.0) L 02/24/21 06:13 Salicylates < 0.3 mg/dL (3-10) L 02/21/21 00:55 Acetaminophen < 5.0 ug/mL (10-30) L 02/21/21 00:55 Ethyl Alcohol < 10 mg/dL (0-10) 02/21/21 00:55 Nasal/Oral COVID-19 PCR Not detected 02/24/21 14:00 HCV RNA (PCR) IUs/ml <1.18 not detected Log IU/mL (NOT DETECTED) 02/24/21 06:13 HCV RNA (PCR) IU log10 <15 not detected IU/mL (NOT DETECTED) 02/24/21 06:13 HIV 1&2 Ab & HIV 1 Ag Non-reactive (Non-Reactiv) 02/24/21 06:13 HIV 1&2 Antibody Non-reactive (Non-Reactiv) 02/24/21 06:13 SARS-CoV-2 Ag (Rapid) Negative (Negative) 02/21/21 01:[address] 02/21/21 00:17 IMPRESSION: 1. No acute intracranial hemorrhage or mass effect. 2. No definite acute infarct by CT, see above. 3. Other findings discussed above. 4. Some limitations due to artifact from patient motion. Radiation Dose CTDIVOL = (mGy): DLP = 1670.1 (mGy-cm) Chest CTA 02/24/21 09:32 IMPRESSION: 1. No evidence of pulmonary embolus. 2. Shallow inspiration with diffuse bilateral groundglass infiltrates most consistent with COVID 19 pneumonia. 3. Airspace consolidation with compressive atelectasis in the lung bases with air bronchograms. 4. Enteric tube and ETT tube. 5. Fluid distended gallbladder. No gallbladder wall thickening or pericholecystic fluid. Liver Ultrasound 02/25/21 06:00 IMPRESSION: 1. Hepatomegaly with diffuse fatty infiltration and coarse echogenicity. No intrahepatic biliary ductal dilatation. 2. Mild fluid distention of the gallbladder which is otherwise normal in appearance. 3. Normal common bile duct. 4. No hydronephrosis in right kidney. Chest X-Ray 02/26/21 06:00 IMPRESSION: Interval improvement as above. Micro: Microbiology 02/25/21 11:45 Gram Stain - Final Sputum - Endotracheal Tube Aspirate Sputum Culture - Preliminary 02/21/21 01:36 Blood Culture - Final Blood Staphylococcus aureus 02/21/21 00:55 Blood Culture - Final Blood Staphylococcus aureus A&P Assessment and plan (1) Altered mental status: Status: Acute Qualifiers: Altered mental status type: unspecified Qualified Code(s): R41.82 - Altered mental status, unspecified (2) Respiratory failure with hypoxia: Status: Acute Qualifiers: Chronicity: acute Qualified Code(s): J96.01 - Acute respiratory failure with hypoxia (3) Septicemia: Status: Acute (4) Polysubstance abuse: Status: Acute (5) Staphylococcus aureus bacteremia: Status: Acute (6) Metabolic encephalopathy: Status: Acute (7) Methamphetamine abuse: Status: Acute (8) Hepatic encephalopathy: Status: Acute (9) Alcohol use disorder: Status: Acute (10) Diabetes mellitus, type II: Status: Acute Qualifiers: Diabetes mellitus snf insulin use: unspecified 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 Diabetes mellitus complication status: with other specified complication Qualified Code(s): E11.69 - Type 2 diabetes mellitus with other specified complication (11) Hypothyroid: Status: Acute Qualifiers: Hypothyroidism type: acquired Qualified Code(s): E03.9 - Hypothyroidism, unspecified (12) E-coli UTI: Status: Acute (13) Hypernatremia: Status: Acute Overall: 40-year-old with past medical history of polysubstance abuse (opiates, benzodiazepines, amphetamine, marijuana, alcohol), diabetes mellitus, hypothyroidism, history of heart failure, admitted to ICU for altered mental status secondary to sepsis/drug overdose/hepatic encephalopathy; hypoxic respiratory failure secondary to fluid overload versus pneumonia, MSSA bacteremia. #Altered mental status-sepsis/drug overdose/hepatic encephalopathy #U tox positive for opiates, benzodiazepines, amphetamines, marijuana -Tapered off propofol today-handed awakening trial-but patient still drowsy -Ammonia 109; no bowel movements yet-was on p.o. lactulose-changed to lactulose KY Q 3 h -target 2-3 soft bowel movements per day-hopefully mentation improves -Patient on Suboxone -We'll turn off sedation tomorrow and continue awakening trial #Acute hypoxic respiratory failure-possible aspiration pneumonia/fluid overload secondary to drugs #MSSA bacteremia-3/3 blood cultures positive -ABG today 7.4 1/37/75/23/94 % FiO2 on CMV 400/10/45% -CTA 02/24/2021: No evidence of PE. Shallow inspiration with diffuse bilateral GGO consistent with COVID-19 pneumonia. Airspace consolidation with compressive atelectasis in the lung bases with air bronchograms -Chest x-ray today showed significant improvement of bilateral infiltrates -COVID-19 rapid antigen and PCR-both are negative x2; respiratory viral panel still pending -MRSA nares, urine Legionella and other bacterial antigens negative -Blood cultures 3/3 positive for MSSA bacteremia -Patient on cefazolin and Flagyl to cover anaerobes-ID consulted and appreciate recommendations -Elevated procalcitonin and inflammatory markers-likely due to bacterial infection -CTA today no evidence of septic emboli or microabscesses in lungs -BNP 1153, TTE technically difficult study and appears grossly normal LV function -TTE 02/24/2021: Ruled out any vegetations -I/O/N -2100 cc; ; -4.9 L since admission -held Lasix 40 mg daily in view of worsenig hypernatremia -Started on free water flushes and D51/2NS at 75 cc/hour-monitor sodium -On Solu-Medrol 40 mg IVP every 12 hours #A. fib RVR-due to drug overdose-now rate controlled and normal sinus rhythm -Received one dose of amiodarone -Continue close cardiac monitoring -Supplement to keep mg > 2 and k > 3.5 #Deranged LFTs-hepatitis C antibody positive vs alcoholic pattern-improving -History of alcohol abuse -Monitor LFTs -Avoid hepatotoxic medications #Hypernatremia 149 -Monitor sodium-Free water 200 mL every 6 hour through NG tube -On D5 1/2 NS at 75 cc/h - Monitor and supplement to keep k > 3.5 - check mg and supplement if necessary to keep > 2 #Diabetes mellitus-sugars moderately controlled -Currently on scale coverage; required 54 units since morning; I will give 20 units Lantus tonight and review tomorrow #Hypothyroidism -Currently on levothyroxine 100 MCG p.o. daily DVT prophylaxis-Lovenox 40 mg daily GI prophylaxis-PPI; patient intubated more than 48 hours and currently on steroids Condition-gradually improving, prognosis-guarded Recommendations conveyed to hospitalist, RT, RN covering the patient Attestations Medical Necessity Statement*: Patient requires further hospitalization for management of severe sepsis, Staphylococcus bacteremia, acute metabolic encephalopathy secondary to withdrawal from polysubstance abuse, respiratory failure secondary to fluid overload due to drug overdose-currently on ventilator Critical Care Time: The high probability of a clinically significant, sudden or life threatening deterioration of the patient's [respiratory, cardiac, endocrine, renal ID] system(s) required my full and direct attention, intervention and personal management. The critical care time is as shown. This time is in addition to time spent performing any reported procedures but includes the following: [x] Data and vital sign review and interpretation [x] Patient assessment, examination and intervention [x] Documentation [x] Medication orders and management Coding Level of Care Code Established Pt Acute Graduation Coach for g Fwd Patient Type Established History Comprehensive Exam Comprehensive Medical Decision Making High Complexity Diagnoses Altered mental status R41.82 Altered mental status type: unspecified Respiratory failure with hypoxia J96.01 Chronicity: acute Septicemia A41.9 Polysubstance abuse F19.10 Staphylococcus aureus bacteremia R78.81; B95.61 Metabolic encephalopathy G93.41 Methamphetamine abuse F15.10 Hepatic encephalopathy K72.90 Alcohol use disorder Diabetes mellitus, type II E11.69 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
[2021-02-26] MEDS: insulin glargine 100 units/1 mL 12 UNIT SUBCUT (22:54)
[2021-02-27] VITALS (112 sets, daily range): BP systolic 122–181; BP diastolic 57–103; PULSE 51–94; RESP 9–19; TEMP 36.5–37.3; O2SAT 92–100
[2021-02-27] MEDS: propofol 1,000 MG/100 ML INJ 26.13 MG IV ×2 (01:06→04:55)
[2021-02-27] MEDS: lactulose oral liq 20 gm/30 mL UDC 200 GM PR ×4 (02:08→19:59)
[2021-02-27 03:00] LABS: Glucose Point of Care 368 mg/dL (70-110)
[2021-02-27] MEDS: ipratropium-albuterol 3 mL Neb INHALATION ×4 (03:23→20:23)
[2021-02-27 04:17] LABS: Basophils % 0.2 %; Hematocrit 29.3 % (37.0-47.0); Lymphocytes # 1.2 10^3/uL (0.8-4.8); Lymphocytes % 15.1 %; Mean Corpuscular HGB Conc 30.7 g/dL (30.0-36.0); Mean Corpuscular Hemoglobin 23.8 pg (28.0-34.0); Mean Corpuscular Volume 77.5 fL (81-99); Mean Platelet Volume 10.4 fL (7.4-10.4); Monocytes # 0.5 10^3/uL (0.2-0.9); Neutrophils # 6.36 10^3/uL (1.8-7.7); Neutrophils % 77.4 %; Nucleated Red Blood Cells % 0.2 %; Platelet Count 64 10^3/cmm (130-400); Red Blood Count 3.78 10^6/uL (4.1-5.3); Red Cell Distribution Width 24.5 % (12.1-15.1); White Blood Count 8.2 10^3/uL (4.0-10.0)
[2021-02-27 04:39] LABS: Alanine Aminotransferase 15 U/L (0-33); Albumin Level 2.4 g/dL (3.5-5.2); Alkaline Phosphatase 158 IU/L (35-105); Anion Gap 11.6 (5-19); Aspartate Amino Transferase 35 U/L (0-32); Blood Urea Nitrogen 31 mg/dL (6-20); Calcium 8.2 mg/dL (8.5-10.5); Carbon Dioxide 23 mmol/L (22-29); Chloride 114 mmol/L (98-107); Glomerular Filtration Rate 136.6 mL/min (90-130); Glucose 317 mg/dL (65-115); Osmolality Calculated 319 mOsm/kg (285-295); Potassium 3.6 mmol/L (3.5-5.1); Sodium 145 mmol/L (136-145); Total Bilirubin 1.3 mg/dL (0.15-1.2); Total Protein 6.4 g/dL (6.6-8.7)
[2021-02-27 04:45] LABS: Procalcitonin 0.73 ng/mL (0-0.5)
[2021-02-27] MEDS: budesonide 0.5 mg/2 mL Neb INHALATION ×2 (08:18→20:23)
--- NOTE | 2021-02-27 08:57 | PC.NURSE ---
propofol turned off, tube feeding off. dr. datar. miner
[2021-02-27] MEDS: enoxaparin 40 mg/0.4 mL Syringe SUBCUT (09:31)
[2021-02-27] MEDS: levothyroxine 100 mcg Tablet PO (09:32)
[2021-02-27 11:14] LABS: Glucose Point of Care 362 mg/dL (70-110)
[2021-02-27] MEDS: propofol 1,000 MG/100 ML INJ 6.53 MG IV (12:43)
--- NOTE | 2021-02-27 13:23 | PC.NURSE ---
dr. gibbons in, placed pt. on 30%fio2. will turn propofol to 5, with further weaning possible, according to how pt. tolerates.
--- NOTE | 2021-02-27 15:37 | PC.NURSE ---
lactulose enema given pt. very restless, flaling arms and legs around. yellow lq stool.
[2021-02-27 15:41] LABS: Glucose Point of Care 299 mg/dL (70-110)
--- NOTE | 2021-02-27 16:02 | PC.NURSE ---
titrating propofol and precedex down.
--- NOTE | 2021-02-27 16:31 | P.PN_ITS ---
Subjective Subjective: Interval history: No acute events overnight. Patient has remained hemodynamically stable and afebrile. Has not had a bowel movement. Today morning patient was put off sedation and she continued to remain drowsy but was getting agitated so was put back on full support and sedation. Patient requiring minimal oxygen supplementation on ventilator support of FiO2 30%, rate 16, PEEP of 10 with tidal volume of 400. Medications: Reviewed: Yes Vitals/I&O/Wt Last Vital Signs Temp 97.8 F 02/27/21 14:15 Pulse 78 02/27/21 16:10 Resp 16 02/27/21 16:10 BP 175/87 02/27/21 14:45 Pulse Ox 98 02/27/21 16:10 02/27/21 02/27/21 02/27/21 06:59 14:59 22:59 Intake Total 2041.98 / 2620.563 555.374 / 555.374 11.229 / 566.603 Output Total 950 / 2075 Balance 1091.98 / 545.563 555.374 / 555.374 11.229 / 566.603 Physical Exam Narrative: EXAM NARRATIVE: General: Sedated, ventilated, morbidly obese, multiple excoriation present all over the body. HEENT: PERRLA, pupils bilaterally equal and reactive Chest: Bilateral coarse crackles present more in the right middle and lower zone, left lower zone, equal good air entry bilaterally CVS: S1-S2 regular, no murmurs, no tachycardia, no gallops, no rubs Abdomen: Soft, nontender, no organomegaly, bowel sounds present Neuro: Sedated, ventilated, pupils bilaterally equal sluggishly reactive Urinary Catheter Management^: Boykin: Cath Placed During This Visit: yes Reason for Continuing Indwelling Catheter: Accurate Measurement of Urinary Output in Critically Ill Patients Urinary Catheter Date of Insertion: 02/22/21 Urinary Catheter Time of Insertion: 09:00 Data : 02/27/21 03:40 02/27/21 03:40 Micro: Microbiology 02/25/21 11:45 Gram Stain - Final Sputum - Endotracheal Tube Aspirate Sputum Culture - Preliminary Yeast 02/22/21 13:45 Blood Culture - Final Blood NO GROWTH AFTER 5 DAYS 02/22/21 13:40 Blood Culture - Final Blood NO GROWTH AFTER 5 DAYS 02/21/21 01:36 Blood Culture - Final Blood Staphylococcus aureus 02/21/21 00:55 Blood Culture - Final Blood Staphylococcus aureus A&P Assessment and plan (1) Staphylococcus aureus bacteremia: Status: Acute (2) Septicemia: Status: Acute (3) Polysubstance abuse: Status: Acute (4) Respiratory failure with hypoxia: Status: Acute Qualifiers: Chronicity: acute Qualified Code(s): J96.01 - Acute respiratory failure with hypoxia (5) Pneumonia: Status: Acute Qualifiers: Laterality: bilateral Lung location: unspecified part of lung Pneumonia type: due to methicillin-sensitive Staphylococcus aureus (MSSA) Qualified Code(s): J15.211 - Pneumonia due to Methicillin susceptible Staphylococcus aureus (6) Metabolic encephalopathy: Status: Acute (7) E-coli UTI: Status: Acute (8) Methamphetamine abuse: Status: Acute (9) Alcohol use disorder: Status: Acute (10) Diabetes mellitus, type II: Status: Acute Qualifiers: Diabetes mellitus correction insulin use: unspecified correction insulin use status Diabetes mellitus complication status: with other specified complication Qualified Code(s): E11.69 - Type 2 diabetes mellitus with other specified complication (11) Hypertension: Status: Acute Qualifiers: Hypertension type: essential hypertension Qualified Code(s): I10 - Essential (primary) hypertension (12) Anxiety with depression: Status: Acute Additional A&P Information Severe sepsis: MSSA bacteremia: Most likely secondary to pneumonia and UTI. Urine culture positive for E. coli. Sensitivity appreciated. Keep mean arterial pressure over 65. Strict input output charting. Appreciate ID and Pulm recommendations. MRSA negative, Urine Legionella, bacterial antigen negative. Repeat Bcx negative so far. Sputum Cx appreciated. Abx changed as per ID. Continue with Cefaziolin. Will cover for MSSA and E.coli. Patient has finished 5-day course of Flagyl. Add fluconazole to finish of a 7-day course for yeast in sputum. Will await speciation. RENEE appreciated-negative for IE Hypoxic respiratory failure: Most likely secondary to acute metabolic encephalopathy, chemical pneumonitis versus bacterial pneumonia versus viral pneumonitis. Repeat chest x-ray done today shows resolution of consolidations. Repeat Covid PCR negative. Respiratory viral panel sent. On minimal ventilator support for now. Wean Solu-Medrol to 40 mg every 12 hourly. Will be down further tomorrow. DuoNebs every 6 hour, budesonide twice daily. Hypernatremia: Resolving. Sodium 145 today. For now continue with fluid as before. Continue with free water flushes to 50 cc every 4 hours. D5 half NS at 75 cc/h. Repeat BMP in evening. Hold off on any further Lasix. Acute metabolic encephalopathy: Most likely secondary to hepatic encephalopathy along with hypernatremia and severe sepsis. As patient is not improving even though hyponatremia is resolving well do CT head without contrast. Hepatic encephalopathy: Change lactulose to per rectum for enema. Lactulose enema. Repeat ammonia levels. Transaminitis: Most likely from severe sepsis along with history of hepatitis C. Check hep C RNA level. LDH and liver ultrasound results appreciated. HIV negative. Full code. Lovenox will help with DVT prophylaxis. Start on tube feeds as above. Protonix PUD prophylaxis. Patient's care discussed with patient's mother over the phone. All the concerns and questions were answered. Severely guarded prognosis. Case discussed with pulmonology. Appreciate recommendations. Attestations Medical Necessity Statement*: Patient requires further hospitalization for acute metabolic encephalopathy, ventilator dependent, sepsis from MSSA bacteremia Critical Care Time: The high probability of a clinically significant, sudden or life threatening deterioration of the patient's [neurology, pulmonology, cardiac, renal] system(s) required my full and direct attention, intervention and personal management. The critical care time is as shown. 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 [facility] Fwd Diagnoses Staphylococcus aureus bacteremia R78.81; B95.61 Septicemia A41.9 Polysubstance abuse F19.10 Respiratory failure with hypoxia J96.01 Chronicity: acute Pneumonia J15.211 Laterality: bilateral Lung location: unspecified part of lung Pneumonia type: due to methicillin-sensitive Staphylococcus aureus (MSSA) Metabolic encephalopathy G93.41 E-coli UTI N39.0; B96.20 Methamphetamine abuse F15.10 Alcohol use disorder Diabetes mellitus, type II E11.69 Diabetes mellitus correction insulin use: unspecified terminal clerk insulin use status Diabetes mellitus complication status: with other specified complication Hypertension I10 Hypertension type: essential hypertension Anxiety with depression F41.8
--- NOTE | 2021-02-27 16:32 | PC.NURSE ---
precedex decreased to 0.6mcg/kg/min. unable to titrate rate on sep d/ it being zeroed as finished.
--- NOTE | 2021-02-27 16:36 | CTR_ITS ---
PROCEDURE INFORMATION: Exam: CT Head Without Contrast Exam date and time: 02/27/2021 4:36 PM Age: 40 years old Clinical indication: Altered mental status/memory loss; Patient HX: AMS. Encephalopathy. Intubated. TECHNIQUE: Imaging protocol: Computed tomography of the head without contrast. Radiation optimization: All CT scans at this facility use at least one of these dose optimization techniques: automated exposure control; mA and/or kV adjustment per patient size (includes targeted exams where dose is matched to clinical indication); or iterative reconstruction. COMPARISON: CT head wo con* [id number] 02/21/2021 12:53 AM RADIATION DOSE METRICS: Total DLP (mGy-cm): 1230.14 FINDINGS: Brain: No intracranial hemorrhage, edema or other acute abnormalities are seen in the brain. There is no mass effect or midline shift. Cerebral ventricles: No ventriculomegaly. Paranasal sinuses: Visualized sinuses are unremarkable. No fluid levels. Mastoid air cells: Visualized mastoid air cells are well aerated. Bones/joints: Unremarkable. No acute fracture. Soft tissues: Unremarkable. CT/CT head wo con* [id number] IMPRESSION: No acute intracranial abnormality. Radiation Dose CTDIVOL = (mGy): DLP = 1230.14 (mGy-cm)
[2021-02-27] MEDS: dexmedetomidine 400 MCG in sodium chloride 0.9% (100 ml) 100 ML 16.98 MCG IV (17:28)
--- NOTE | 2021-02-27 18:06 | PC.NURSE ---
daughter took what appeared to be rings from bilateral ring fingers d/t edema in both hands
--- NOTE | 2021-02-27 19:50 | PM.PN ---
Subjective Subjective: Interval history: moves all extremities but does not wake up and follow commands plan is to continue awakening trial and breathing trial once pt is more awake - if not successful for the day start feeding if no improvement in mentation - plan for CT head reduced suboxone to once daily Medications: Reviewed: Yes Vitals/I&O/Wt Last Vital Signs Temp 97.8 F 02/27/21 14:15 Pulse 58 L 02/27/21 17:45 Resp 19 H 02/27/21 18:42 BP 167/83 02/27/21 18:00 Pulse Ox 94 02/27/21 18:42 02/27/21 02/27/21 02/27/21 06:59 14:59 22:59 Intake Total 2041.98 / 2620.563 555.374 / 555.374 386.229 / 941.603 Output Total 950 / 2075 1000 / 1000 Balance 1091.98 / 545.563 555.374 / 555.374 -613.771 / -58.397 Physical Exam Narrative: EXAM NARRATIVE: EXAM NARRATIVE: PHYSICAL EXAM: General: lying in bed, sedated and intubated. HEENT:NCAT, PERRLA, EOMI Neck: Supple Lungs: Bilateral diffuse crackles Heart: s1/s2, RRR Abd: soft, NT, ND, BS + Normoactive Extremities: No edema REGULATORY ATTORNEY: sedated and limited REGULATORY ATTORNEY exam possible.; moves all extremities but does not wake up and follow commands when off sedation SKIN: no rash LDA: # CVC: Right SVC 02/23/2021 # Boykin: 02/22/2021 Urinary Catheter Management^: Boykin: Cath Placed During This Visit: yes Reason for Continuing Indwelling Catheter: Accurate Measurement of Urinary Output in Critically Ill Patients Urinary Catheter Date of Insertion: 02/22/21 Urinary Catheter Time of Insertion: 09:00 Data : 02/27/21 03:40 02/27/21 03:40 Other Labs: Laboratory Results WBC 8.2 10^3/uL (4.0-10.0) 02/27/21 03:40 RBC 3.78 10^6/uL (4.1-5.3) L 02/27/21 03:40 Hgb 9.0 g/dL (11.5-15.3) L 02/27/21 03:40 Hct 29.3 % (37.0-47.0) L 02/27/21 03:40 MCV 77.5 fL (81-99) L 02/27/21 03:40 MCH 23.8 pg (28.0-34.0) L 02/27/21 03:40 MCHC 30.7 g/dL (30.0-36.0) 02/27/21 03:40 RDW 24.5 % (12.1-15.1) H 02/27/21 03:40 Plt Count 64 10^3/cmm (130-400) L 02/27/21 03:40 MPV 10.4 fL (7.4-10.4) 02/27/21 03:40 Neut % (Auto) 77.4 % 02/27/21 03:40 Lymph % (Auto) 15.1 % 02/27/21 03:40 [place] % (Auto) 6.0 % 02/27/21 03:40 Eos % (Auto) 0.0 % 02/27/21 03:40 Baso % (Auto) 0.2 % 02/27/21 03:40 Neut # (Auto) 6.36 10^3/uL (1.8-7.7) 02/27/21 03:40 Lymph # (Auto) 1.2 10^3/uL (0.8-4.8) 02/27/21 03:40 [place] # (Auto) 0.5 10^3/uL (0.2-0.9) 02/27/21 03:40 Eos # (Auto) 0.0 10^3/uL (0.0-0.8) 02/27/21 03:40 Baso # (Auto) 0.0 10^3/uL (0.0-0.1) 02/27/21 03:40 Nucleated RBC % (auto) 0.2 % 02/27/21 03:40 Nucleated RBCs # 0.0 /100WBC 02/27/21 03:40 Hypochromasia 1+ H 02/25/21 04:37 Anisocytosis 3+ H 02/25/21 04:37 Macrocytosis Trace 02/22/21 02:40 Target Cells 2+ H 02/25/21 04:37 Ovalocytes Trace 02/22/21 02:40 Bren Cells 2+ H 02/22/21 02:40 ESR 75 mm/hr (0-15) H 02/23/21 09:05 Haptoglobin 133.0 mg/L (30-200) 02/23/21 09:05 Haptoglobin Cancelled 02/23/21 09:05 PT 19.60 SECONDS (12.1-14.9) H 02/23/21 09:05 INR 1.62 (0.8-1.2) H 02/23/21 09:05 APTT 35.1 SECONDS (23.9-36.7) 02/23/21 09:05 Fibrinogen 533 mg/dL (174-498) H 02/23/21 09:05 Fibrinogen Cancelled 02/23/21 09:05 D-Dimer 3.29 ug/mIFEU (0-0.59) H 02/23/21 09:05 D-Dimer Cancelled 02/23/21 09:05 Specimen Type Arterial 02/26/21 04:50 Sample Site Radial, left 02/26/21 04:50 ABG pH 7.41 (7.35-7.45) 02/26/21 04:50 ABG pCO2 37.1 mmHg (35-45) 02/26/21 04:50 ABG pO2 75.5 mmHg (80.0-100.0) L 02/26/21 04:50 ABG HCO3 23.5 mmol/L (22-26) 02/26/21 04:50 ABG O2 Saturation 83.2 02/25/21 05:29 ABG Base Excess -0.9 mmol/L (-2.0-2.0) 02/26/21 04:50 Lencho Test Pos 02/26/21 04:50 A-a O2 Gradient 48.6 mmHg (5-10) H 02/25/21 05:29 Hematocrit 30.0 % (37-47) L 02/26/21 04:50 Hgb O2 Saturation 81.5 % (95-100) L 02/25/21 05:29 Carboxyhemoglobin 1.0 %THgb (0.4-20.1) 02/25/21 05:29 Methemoglobin 1.0 % (0.4-1.5) 02/25/21 05:29 Total Hemoglobin 10.7 g/dL (12-16) L 02/25/21 05:29 Sodium 150.0 mmol/L (131-143) H 02/25/21 05:29 Potassium 3.4 mmol/L (3.5-5.0) L 02/25/21 05:29 Glucose 246.0 mg/dL (70-115) H 02/25/21 05:29 Ionized Calcium 1.3 mmol/L (1.1-1.4) 02/25/21 05:29 Respiration Rate 16.0 % 02/23/21 16:43 O2 Delivery Device Vent 02/26/21 04:50 FiO2 45.0 % 02/26/21 04:50 Tidal Volume 0.40 02/26/21 04:50 PEEP 10.0 cmH20 02/26/21 04:50 Specimen Drawn By pgd 02/23/21 16:43 Ornamental Machine Operator ID Dallin 02/26/21 04:50 Sodium 145 mmol/L (136-145) 02/27/21 03:40 Potassium 3.6 mmol/L (3.5-5.1) 02/28/21 03:32 Chloride 114 mmol/L (98-107) H 02/27/21 03:40 Carbon Dioxide 24 mmol/L (22-29) 02/28/21 03:32 Anion Gap 10.6 (5-19) 02/28/21 03:32 BUN 31 mg/dL (6-20) H 02/27/21 03:40 Creatinine 0.5 mg/dL (0.5-0.9) 02/28/21 03:32 GFR Calculation 136.6 mL/min (90-130) H 02/27/21 03:40 Glucose 317 mg/dL (65-115) H 02/27/21 03:40 POC Glucose 349 mg/dL (70-110) H 02/28/21 03:29 Estimat Average Glucose 154 02/24/21 06:13 Hemoglobin A1c 7.0 % (4.0-6.0) H 02/24/21 06:13 Calculated Osmolality 319 mOsm/kg (285-295) H 02/27/21 03:40 Lactic Acid 2.1 mmol/L (0.5-2.2) 02/22/21 02:40 Lactic Acid (Sepsis) 2.2 mmol/L (0.5-2.2) 02/22/21 13:45 Lactate 2.5 mmol/L (0.5-2.2) H 02/21/21 00:55 Calcium 8.2 mg/dL (8.5-10.5) L 02/27/21 03:40 Magnesium 2.2 mg/dL (1.7-2.3) 02/24/21 14:16 Iron 29 ug/dL (37-145) L 02/23/21 09:05 TIBC 225 mcg/dl 02/23/21 09:05 % Saturation 12.8 % (20-50) L 02/23/21 09:05 Unsat Iron Binding 196 ug/dL (112-347) 02/23/21 09:05 Total Bilirubin 1.3 mg/dL (0.15-1.2) H 02/27/21 03:40 Direct Bilirubin Cancelled 02/23/21 09:05 AST 31 U/L (0-32) 02/28/21 03:32 ALT 15 U/L (0-33) 02/28/21 03:32 Alkaline Phosphatase 158 IU/L (35-105) H 02/27/21 03:40 Ammonia 108 umol/L (11-51) H 02/26/21 10:47 Lactate Dehydrogenase 253 U/L (135-214) H 02/25/21 04:37 C-Reactive Protein 160.6 mg/L (0.0-4.9) H 02/23/21 09:05 C-Reactive Protein Cancelled 02/23/21 09:05 NT-Pro-B Natriuret Pep 471 pg/mL (0-125) H 02/26/21 03:59 Total Protein 6.4 g/dL (6.6-8.7) L 02/27/21 03:40 Albumin 2.4 g/dL (3.5-5.2) L 02/27/21 03:40 Globulin 3.8 g/dL (1.3-4.6) 02/28/21 03:32 Procalcitonin 0.73 ng/mL (0-0.5) H 02/27/21 03:40 TSH 0.78 uIU/mL (0.27-4.20) 02/23/21 09:05 Urine Color Yellow (Yellow) 02/21/21 02:04 Urine Appearance Clear (CLEAR) 02/21/21 02:04 Urine pH 6 (5-7) 02/21/21 02:04 Ur Specific [place] 1.015 (1.005-1.030) 02/21/21 02:04 Urine Protein Neg (Negative) 02/21/21 02:04 Urine Glucose (UA) Norm (Normal) 02/21/21 02:04 Urine Ketones Negative (Negative) 02/21/21 02:04 Urine Blood Neg (Negative) 02/21/21 02:04 Urine Nitrate Negative (Negative) 02/21/21 02:04 Urine Bilirubin 1+ (Negative) H 02/21/21 02:04 Urine Urobilinogen 8 mg/dL (Negative) H 02/21/21 02:04 Ur Leukocyte Esterase Negative (Negative) 02/21/21 02:04 Vancomycin Trough 4.5 ug/mL (10-15) L 02/25/21 07:25 Random Vancomycin 12.1 ug/mL (20.0-40.0) L 02/24/21 06:13 Salicylates < 0.3 mg/dL (3-10) L 02/21/21 00:55 Acetaminophen < 5.0 ug/mL (10-30) L 02/21/21 00:55 Ethyl Alcohol < 10 mg/dL (0-10) 02/21/21 00:55 Nasal/Oral COVID-19 PCR Not detected 02/24/21 14:00 HCV RNA (PCR) IUs/ml <1.18 not detected Log IU/mL (NOT DETECTED) 02/24/21 06:13 HCV RNA (PCR) IU log10 <15 not detected IU/mL (NOT DETECTED) 02/24/21 06:13 HIV 1&2 Ab & HIV 1 Ag Non-reactive (Non-Reactiv) 02/24/21 06:13 HIV 1&2 Antibody Non-reactive (Non-Reactiv) 02/24/21 06:13 SARS-CoV-2 Ag (Rapid) Negative (Negative) 02/21/21 01:[address] 02/21/21 00:17 IMPRESSION: 1. No acute intracranial hemorrhage or mass effect. 2. No definite acute infarct by CT, see above. 3. Other findings discussed above. 4. Some limitations due to artifact from patient motion. Radiation Dose CTDIVOL = (mGy): DLP = 1670.1 (mGy-cm) Chest CTA 02/24/21 09:32 IMPRESSION: 1. No evidence of pulmonary embolus. 2. Shallow inspiration with diffuse bilateral groundglass infiltrates most consistent with COVID 19 pneumonia. 3. Airspace consolidation with compressive atelectasis in the lung bases with air bronchograms. 4. Enteric tube and ETT tube. 5. Fluid distended gallbladder. No gallbladder wall thickening or pericholecystic fluid. Liver Ultrasound 02/25/21 06:00 IMPRESSION: 1. Hepatomegaly with diffuse fatty infiltration and coarse echogenicity. No intrahepatic biliary ductal dilatation. 2. Mild fluid distention of the gallbladder which is otherwise normal in appearance. 3. Normal common bile duct. 4. No hydronephrosis in right kidney. Chest X-Ray 02/26/21 06:00 IMPRESSION: Interval improvement as above. Micro: Microbiology 02/25/21 11:45 Gram Stain - Final Sputum - Endotracheal Tube Aspirate Sputum Culture - Preliminary Yeast 02/22/21 13:45 Blood Culture - Final Blood NO GROWTH AFTER 5 DAYS 02/22/21 13:40 Blood Culture - Final Blood NO GROWTH AFTER 5 DAYS A&P Assessment and plan (1) Altered mental status: Status: Acute Qualifiers: Altered mental status type: unspecified Qualified Code(s): R41.82 - Altered mental status, unspecified (2) Respiratory failure with hypoxia: Status: Acute Qualifiers: Chronicity: acute Qualified Code(s): J96.01 - Acute respiratory failure with hypoxia (3) Septicemia: Status: Acute (4) Polysubstance abuse: Status: Acute (5) Staphylococcus aureus bacteremia: Status: Acute (6) Metabolic encephalopathy: Status: Acute (7) Methamphetamine abuse: Status: Acute (8) Hepatic encephalopathy: Status: Acute (9) Alcohol use disorder: Status: Acute (10) Diabetes mellitus, type II: Status: Acute Qualifiers: Diabetes mellitus [facility] insulin use: unspecified digital coordinator insulin use status Diabetes mellitus complication status: with other specified complication Qualified Code(s): E11.69 - Type 2 diabetes mellitus with other specified complication (11) Hypothyroid: Status: Acute Qualifiers: Hypothyroidism type: acquired Qualified Code(s): E03.9 - Hypothyroidism, unspecified (12) E-coli UTI: Status: Acute (13) Hypernatremia: Status: Acute Overall: 40-year-old with past medical history of polysubstance abuse (opiates, benzodiazepines, amphetamine, marijuana, alcohol), diabetes mellitus, hypothyroidism, history of heart failure, admitted to ICU for altered mental status secondary to sepsis/drug overdose/hepatic encephalopathy; hypoxic respiratory failure secondary to fluid overload versus pneumonia, MSSA bacteremia. #Altered mental status-sepsis/drug overdose/hepatic encephalopathy/Hypernatremia #U tox positive for opiates, benzodiazepines, amphetamines, marijuana -Tapered off propofol today- awakening trial- moves all extremities but does not wake up and follow commands -Ammonia 109; no bowel movements yet-was on p.o. lactulose-changed to lactulose NE Q 3 h -target 2-3 soft bowel movements per day-hopefully mentation improves -Patient on Suboxone - reduced to once daily - Hypernatremia improving - DC D51/2NS - Continue free water through NG -turn off sedation in am and continue awakening trial - if no improvement - consider repeat CT head #Acute hypoxic respiratory failure-possible aspiration pneumonia/fluid overload secondary to drugs #MSSA bacteremia-3/3 blood cultures positive -ABG yesterday 7.4 1/37/75/23/94 % FiO2 on CMV 400/10/45% - today fio2 down to 30% and saturating 95% -CTA 02/24/2021: No evidence of PE. Shallow inspiration with diffuse bilateral GGO consistent with COVID-19 pneumonia. Airspace consolidation with compressive atelectasis in the lung bases with air bronchograms -Chest x-ray showed significant improvement of bilateral infiltrates -Continue SAT / SBT Trials and once mentation is better - plan to extubate -COVID-19 rapid antigen and PCR-both are negative x2; respiratory viral panel still pending -MRSA nares, urine Legionella and other bacterial antigens negative -Blood cultures 3/3 positive for MSSA bacteremia -Patient on cefazolin and Flagyl to cover anaerobes-ID consulted and appreciate recommendations -Elevated procalcitonin and inflammatory markers-likely due to bacterial infection -CTA today no evidence of septic emboli or microabscesses in lungs -BNP 1153, TTE technically difficult study and appears grossly normal LV function -TTE 02/24/2021: Ruled out any vegetations -I/O/N -2100 cc; ; -4.9 L since admission -held Lasix 40 mg daily in view of worsenig hypernatremia; -Currently improving hypernatremia - DC d51/2 NS[ Continue free water flushes -monitor sodium -On Solu-Medrol 40 mg IVP every 12 hours - taper down and stop #A. fib RVR-due to drug overdose-now rate controlled and normal sinus rhythm -Received one dose of amiodarone -Continue close cardiac monitoring -Supplement to keep mg > 2 and k > 3.5 #Deranged LFTs-hepatitis C antibody positive vs alcoholic pattern-improving -History of alcohol abuse -Monitor LFTs -Avoid hepatotoxic medications #Hypernatremia 149 >>> 145 -Monitor sodium-Free water 200 mL every 6 hour through NG tube -DC D5 1/2 NS at 75 cc/h - Monitor and supplement to keep k > 3.5 - check mg and supplement if necessary to keep > 2 #Diabetes mellitus-sugars moderately controlled -Currently monitor sugars and adjust insulin; on scale coverage; 20 units Lantus daily #Hypothyroidism -Currently on levothyroxine 100 MCG p.o. daily DVT prophylaxis-Lovenox 40 mg daily GI prophylaxis-PPI; patient intubated more than 48 hours and currently on steroids Condition-gradually improving, prognosis-guarded Can be extubated once mentation improves Recommendations conveyed to hospitalist, RT, RN covering the patient Attestations Medical Necessity Statement*: Patient requires further hospitalization for management of severe sepsis, Staphylococcus bacteremia, acute metabolic encephalopathy secondary to withdrawal from polysubstance abuse, respiratory failure secondary to fluid overload due to drug overdose-currently on ventilator Critical Care Time: The high probability of a clinically significant, sudden or life threatening deterioration of the patient's [respiratory, cardiac, endocrine, renal ID] system(s) required my full and direct attention, intervention and personal management. The critical care time is as shown. This time is in addition to time spent performing any reported procedures but includes the following: [x] Data and vital sign review and interpretation [x] Patient assessment, examination and intervention [x] Documentation [x] Medication orders and management Critical Care Time (min): 45 Coding Level of Care Code Established Pt Acute Compressor Technician for Lorri Fwd Patient Type Established History Comprehensive Exam Comprehensive Medical Decision Making High Complexity Diagnoses Altered mental status R41.82 Altered mental status type: unspecified Respiratory failure with hypoxia J96.01 Chronicity: acute Septicemia A41.9 Polysubstance abuse F19.10 Staphylococcus aureus bacteremia R78.81; B95.61 Metabolic encephalopathy G93.41 Methamphetamine abuse F15.10 Hepatic encephalopathy K72.90 Alcohol use disorder Diabetes mellitus, type II E11.69 Diabetes mellitus digital coordinator insulin use: unspecified digital coordinator insulin use status Diabetes mellitus complication status: with other specified complication Hypothyroid E03.9 Hypothyroidism type: acquired E-coli UTI N39.0; B96.20 Hypernatremia E87.0 Time Spent (min) 45
[2021-02-27] MEDS: propofol 1,000 MG/100 ML INJ 19.6 MG IV (20:05)
[2021-02-27 20:45] LABS: Glucose Point of Care 339 mg/dL (70-110)
[2021-02-28] VITALS (76 sets, daily range): BP systolic 103–178; BP diastolic 46–90; PULSE 54–92; RESP 13–26; TEMP 35.8–36.6; O2SAT 87–99
[2021-02-28] MEDS: propofol 1,000 MG/100 ML INJ 19.6 MG IV ×2 (00:01→04:02)
[2021-02-28] MEDS: ipratropium-albuterol 3 mL Neb INHALATION ×4 (02:15→20:31)
[2021-02-28] MEDS: dexmedetomidine 400 MCG in sodium chloride 0.9% (100 ml) 100 ML 14.15 MCG IV (02:26)
[2021-02-28] MEDS: lactulose oral liq 20 gm/30 mL UDC 200 GM PR ×3 (02:27→13:36)
[2021-02-28 03:53] LABS: Glucose Point of Care 349 mg/dL (70-110)
[2021-02-28 04:46] LABS: Basophils % 0.1 %; Hematocrit 30.5 % (37.0-47.0); Hemoglobin 9.1 g/dL (11.5-15.3); Lymphocytes # 0.8 10^3/uL (0.8-4.8); Lymphocytes % 11.1 %; Mean Corpuscular HGB Conc 29.8 g/dL (30.0-36.0); Mean Corpuscular Hemoglobin 23.7 pg (28.0-34.0); Mean Corpuscular Volume 79.4 fL (81-99); Monocytes # 0.3 10^3/uL (0.2-0.9); Monocytes % 5.1 %; Neutrophils # 5.55 10^3/uL (1.8-7.7); Neutrophils % 82.5 %; Nucleated Red Blood Cells % 0.4 %; Platelet Count 60 10^3/cmm (130-400); Red Blood Count 3.84 10^6/uL (4.1-5.3); Red Cell Distribution Width 25.1 % (12.1-15.1); White Blood Count 6.7 10^3/uL (4.0-10.0)
[2021-02-28 05:19] LABS: Alanine Aminotransferase 15 U/L (0-33); Albumin Level 2.4 g/dL (3.5-5.2); Alkaline Phosphatase 155 IU/L (35-105); Anion Gap 10.6 (5-19); Aspartate Amino Transferase 31 U/L (0-32); Blood Urea Nitrogen 31 mg/dL (6-20); Calcium 8.2 mg/dL (8.5-10.5); Carbon Dioxide 24 mmol/L (22-29); Chloride 119 mmol/L (98-107); Globulin 3.8 g/dL (1.3-4.6); Glomerular Filtration Rate 136.6 mL/min (90-130); Glucose 346 mg/dL (65-115); Osmolality Calculated 330 mOsm/kg (285-295); Potassium 3.6 mmol/L (3.5-5.1); Sodium 150 mmol/L (136-145); Total Bilirubin 1.3 mg/dL (0.15-1.2); Total Protein 6.2 g/dL (6.6-8.7)
--- NOTE | 2021-02-28 06:00 | XRR_ITS ---
PROCEDURE INFORMATION: Exam: XR Chest Exam date and time: 02/28/2021 6:00 AM Age: 40 years old Clinical indication: Shortness of breath; Additional info: Covid TECHNIQUE: Imaging protocol: XR of the chest. Views: 1 view. COMPARISON: CR XR chest 1V portable [id number] 02/26/2021 6:33 AM FINDINGS: Tubes, catheters and devices: An endotracheal tube, nasogastric tube and central venous catheter projects in satisfactory position. Lungs: There is subsegmental atelectasis in the lung bases greater on the left side. The left basilar atelectasis has improved since previous study. Pleural spaces: Unremarkable. No pleural effusion. No pneumothorax. Heart/Mediastinum: Unremarkable. No cardiomegaly. Bones/joints: Unremarkable. XR/XR chest 1V portable [id number] IMPRESSION: 1. Satisfactory position of the ET tube, NG tube, and central venous catheter. 2. Subsegmental atelectasis predominantly in the left base. This has improved since previous study.
[2021-02-28] MEDS: insulin glargine 100 units/1 mL 20 UNIT SUBCUT (06:25)
[2021-02-28] MEDS: propofol 1,000 MG/100 ML INJ 26.13 MG IV (08:40)
[2021-02-28 09:00] LABS: Glucose Point of Care 337 mg/dL (70-110)
[2021-02-28] MEDS: budesonide 0.5 mg/2 mL Neb INHALATION ×2 (09:01→20:31)
--- NOTE | 2021-02-28 10:31 | PC.SOCIAL ---
IM follow up not provided since patient is currently on vent. Date of Discharge is not anticipated within two days. CM will provide closer to time.
[2021-02-28] MEDS: enoxaparin 40 mg/0.4 mL Syringe SUBCUT (10:36)
[2021-02-28] MEDS: levothyroxine 100 mcg Tablet PO (10:37)
[2021-02-28] MEDS: fluconazole 100 mg Tablet 200 MG PO (10:37)
--- NOTE | 2021-02-28 13:00 | PC.NURSE ---
Sedation was turned off this AM to assess patients mental status. Patient was able to follow some commands but was kicking legs and banging head on the bed. Sedation was tuned back on after Dr assessed patient.
[2021-02-28] MEDS: NON-FORMULARY MEDICATION 1 EACH NG-TUBE (13:36)
[2021-02-28] MEDS: dextrose 5% 1,000 ML 75 ML IV (13:37)
[2021-02-28 14:02] LABS: Glucose Point of Care 255 mg/dL (70-110)
[2021-02-28] MEDS: dexmedetomidine 400 MCG in sodium chloride 0.9% (100 ml) 100 ML 28.3 MCG IV (14:32)
--- NOTE | 2021-02-28 15:56 | PM.PN ---
Subjective Subjective: Interval history: No acute events overnight. Patient has remained hemodynamically stable and afebrile. Sedation was turned off early in the morning today giving the transfer patient to purposely wake up and plan for possible extubation. On examination patient is off propofol but on Precedex of 0.6, agitated, not following simple commands, gagging on the ventilator which is on the CMV mode with FiO2 of 30% saturating 96%. Tolerating tube feeds well. Overnight did have mild residual up to 100 cc which had resolved in the morning. Patient was placed back upon full sedation. Documented urine output in last 24 hours 1200 cc. Medications: Reviewed: Yes Vitals/I&O/Wt Last Vital Signs Temp 97.4 F L 02/28/21 04:00 Pulse 54 L 02/28/21 15:51 Resp 17 02/28/21 15:51 BP 163/85 02/28/21 14:30 Pulse Ox 95 02/28/21 15:51 02/28/21 02/28/21 02/28/21 06:59 14:59 22:59 Intake Total 1461.777 / 2592.824 739.173 / 739.173 Output Total 300 / 300 Balance 1461.777 / 1417.824 439.173 / 439.173 Physical Exam Narrative: EXAM NARRATIVE: General: Sedated, ventilated, morbidly obese, multiple excoriation present all over the body. HEENT: PERRLA, pupils bilaterally equal and reactive Chest: Bilateral coarse crackles present more in the right middle and lower zone, left lower zone, equal good air entry bilaterally CVS: S1-S2 regular, no murmurs, no tachycardia, no gallops, no rubs Abdomen: Soft, nontender, no organomegaly, bowel sounds present Neuro: Sedated, ventilated, pupils bilaterally equal sluggishly reactive Urinary Catheter Management^: Boykin: Cath Placed During This Visit: yes Reason for Continuing Indwelling Catheter: Accurate Measurement of Urinary Output in Critically Ill Patients Urinary Catheter Date of Insertion: 02/22/21 Urinary Catheter Time of Insertion: 09:00 Data : 02/28/21 03:32 02/28/21 03:32 Micro: Microbiology 02/25/21 11:45 Gram Stain - Final Sputum - Endotracheal Tube Aspirate Sputum Culture - Preliminary Yeast 02/23/21 12:49 Blood Culture - Final Blood NO GROWTH AFTER 5 DAYS 02/23/21 09:05 Blood Culture - Final Blood NO GROWTH AFTER 5 DAYS 02/22/21 13:45 Blood Culture - Final Blood NO GROWTH AFTER 5 DAYS 02/22/21 13:40 Blood Culture - Final Blood NO GROWTH AFTER 5 DAYS A&P Assessment and plan (1) Staphylococcus aureus bacteremia: Status: Acute (2) Septicemia: Status: Acute (3) Polysubstance abuse: Status: Acute (4) Respiratory failure with hypoxia: Status: Acute Qualifiers: Chronicity: acute Qualified Code(s): J96.01 - Acute respiratory failure with hypoxia (5) Pneumonia: Status: Acute Qualifiers: Laterality: bilateral Lung location: unspecified part of lung Pneumonia type: due to methicillin-sensitive Staphylococcus aureus (MSSA) Qualified Code(s): J15.211 - Pneumonia due to Methicillin susceptible Staphylococcus aureus (6) Metabolic encephalopathy: Status: Acute (7) E-coli UTI: Status: Acute (8) Methamphetamine abuse: Status: Acute (9) Alcohol use disorder: Status: Acute (10) Diabetes mellitus, type II: Status: Acute Qualifiers: Diabetes mellitus termite treater helper insulin use: unspecified half-way insulin use status Diabetes mellitus complication status: with other specified complication Qualified Code(s): E11.69 - Type 2 diabetes mellitus with other specified complication (11) Hypertension: Status: Acute Qualifiers: Hypertension type: essential hypertension Qualified Code(s): I10 - Essential (primary) hypertension (12) Anxiety with depression: Status: Acute Additional A&P Information Acute metabolic encephalopathy: Most likely secondary to hepatic encephalopathy along with hypernatremia and severe sepsis. Continue Suboxone at every 12 hourly. Hepatic encephalopathy: Patient having good bowel movements. Continue with current lactulose. Repeat ammonia level in the morning. Hypernatremia: Sodium elevated again today. Start on D5 at 75 cc/h. Continue with free water flushes at 250 cc every 4 hours. Repeat BMP in evening. Hold off on any further Lasix. Severe sepsis: MSSA bacteremia: Most likely secondary to pneumonia and UTI. Urine culture positive for E. coli. Sensitivity appreciated. Keep mean arterial pressure over 65. Strict input output charting. Appreciate ID and Pulm recommendations. MRSA negative, Urine Legionella, bacterial antigen negative. Repeat Bcx negative so far. Sputum Cx appreciated. Abx changed as per ID. Continue with Cefaziolin. Will cover for MSSA and E.coli. Patient has finished 5-day course of Flagyl. Add fluconazole to finish of a 7-day course for yeast in sputum. Will await speciation. RENEE appreciated-negative for IE Hypoxic respiratory failure: Resolved. Requiring minimal ventilatory settings. Most likely secondary to acute metabolic encephalopathy, chemical pneumonitis versus bacterial pneumonia versus viral pneumonitis. Repeat chest x-ray done today shows resolution of consolidations. Repeat Covid PCR negative. Respiratory viral panel sent. On minimal ventilator support for now. Wean Solu-Medrol to 40 mg every 12 hourly. Will be down further tomorrow. DuoNebs every 6 hour, budesonide twice daily. Transaminitis: Most likely from severe sepsis along with history of hepatitis C. Check hep C RNA level. LDH and liver ultrasound results appreciated. HIV negative. Full code. Lovenox will help with DVT prophylaxis. Start on tube feeds as above. Protonix PUD prophylaxis. Patient's care discussed with patient's mother over the phone. All the concerns and questions were answered. Severely guarded prognosis. Case discussed with pulmonology. Appreciate recommendations. Attestations Medical Necessity Statement*: Requires further hospitalization for management of acute metabolic encephalopathy, hypoxic respiratory failure requiring mechanical ventilation, MSSA bacteremia Critical Care Time: The high probability of a clinically significant, sudden or life threatening deterioration of the patient's [cardiac, respiratory, neurological] system(s) required my full and direct attention, intervention and personal management. The critical care time is as shown. This time is in addition to time spent performing any reported procedures but includes the following: [x] Data and vital sign review and interpretation [x] Patient assessment, examination and intervention [x] Documentation [x] Medication orders and management Critical Care Time (min): 90 Coding Level of Care Code Acute House Fellow for [facility] Fwd Diagnoses Staphylococcus aureus bacteremia R78.81; B95.61 Septicemia A41.9 Polysubstance abuse F19.10 Respiratory failure with hypoxia J96.01 Chronicity: acute Pneumonia J15.211 Laterality: bilateral Lung location: unspecified part of lung Pneumonia type: due to methicillin-sensitive Staphylococcus aureus (MSSA) Metabolic encephalopathy G93.41 E-coli UTI N39.0; B96.20 Methamphetamine abuse F15.10 Alcohol use disorder Diabetes mellitus, type II E11.69 Diabetes mellitus half-way insulin use: unspecified termite treater helper insulin use status Diabetes mellitus complication status: with other specified complication Hypertension I10 Hypertension type: essential hypertension Anxiety with depression F41.8
[2021-02-28] MEDS: propofol 1,000 MG/100 ML INJ 32.66 MG IV ×3 (16:12→20:49)
[2021-02-28 16:26] LABS: Glucose Point of Care 237 mg/dL (70-110)
[2021-02-28 17:28] LABS: NT Pro B Type Natriuretic Pept 940 pg/mL (0-125)
--- NOTE | 2021-02-28 17:51 | PC.NURSE ---
Dr. Glasgow gave verbal order to hold 1800 dose of suboxone and give a dose tomorrow at 0600 before attempting to shut off sedation.
--- NOTE | 2021-02-28 17:55 | PC.NURSE ---
Precedex shut off due to bradycardia. Dr. malone
[2021-02-28 20:37] LABS: Glucose Point of Care 297 mg/dL (70-110)
[2021-02-28] MEDS: lactulose oral liq 20 gm/30 mL UDC PO (20:44)
[2021-03-01] VITALS (56 sets, daily range): BP systolic 105–181; BP diastolic 59–90; PULSE 0–93; RESP 13–22; TEMP 36.3–37.2; O2SAT 91–100
[2021-03-01] MEDS: propofol 1,000 MG/100 ML INJ 32.66 MG IV ×3 (01:12→06:19)
[2021-03-01 01:16] LABS: Glucose Point of Care 407 mg/dL (70-110)
[2021-03-01] MEDS: ipratropium-albuterol 3 mL Neb INHALATION ×3 (02:47→20:58)
[2021-03-01 03:36] LABS: Glucose Point of Care 333 mg/dL (70-110)
[2021-03-01] MEDS: dextrose 5% 1,000 ML 75 ML IV ×2 (03:47→19:05)
[2021-03-01] MEDS: lactulose oral liq 20 gm/30 mL UDC PO (03:48)
[2021-03-01 05:20] LABS: Basophils % 0.1 %; Hematocrit 30.2 % (37.0-47.0); Hemoglobin 8.9 g/dL (11.5-15.3); Lymphocytes # 0.6 10^3/uL (0.8-4.8); Lymphocytes % 8.6 %; Mean Corpuscular HGB Conc 29.5 g/dL (30.0-36.0); Mean Corpuscular Hemoglobin 23.7 pg (28.0-34.0); Mean Corpuscular Volume 80.5 fL (81-99); Mean Platelet Volume 10.9 fL (7.4-10.4); Monocytes # 0.3 10^3/uL (0.2-0.9); Monocytes % 4.1 %; Neutrophils % 85.8 %; Nucleated Red Blood Cells % 0 %; Platelet Count 56 10^3/cmm (130-400); Red Blood Count 3.75 10^6/uL (4.1-5.3); Red Cell Distribution Width 25.6 % (12.1-15.1); White Blood Count 7.2 10^3/uL (4.0-10.0)
[2021-03-01] MEDS: dexmedetomidine 400 MCG in sodium chloride 0.9% (100 ml) 100 ML 5.66 MCG IV (05:24)
[2021-03-01 05:42] LABS: Ammonia 47 umol/L (11-51)
[2021-03-01 05:57] LABS: Alanine Aminotransferase 12 U/L (0-33); Albumin Level 2.2 g/dL (3.5-5.2); Alkaline Phosphatase 164 IU/L (35-105); Anion Gap 14.7 (5-19); Aspartate Amino Transferase 24 U/L (0-32); Blood Urea Nitrogen 24 mg/dL (6-20); Calcium 8.2 mg/dL (8.5-10.5); Carbon Dioxide 21 mmol/L (22-29); Chloride 117 mmol/L (98-107); Globulin 3.8 g/dL (1.3-4.6); Glomerular Filtration Rate 136.6 mL/min (90-130); Glucose 339 mg/dL (65-115); Osmolality Calculated 325 mOsm/kg (285-295); Potassium 3.7 mmol/L (3.5-5.1); Sodium 149 mmol/L (136-145); Total Bilirubin 1.1 mg/dL (0.15-1.2)
[2021-03-01] MEDS: insulin glargine 100 units/1 mL 20 UNIT SUBCUT ×2 (06:07→20:58)
[2021-03-01] MEDS: NON-FORMULARY MEDICATION 1 EACH NG-TUBE (06:10)
[2021-03-01] MEDS: budesonide 0.5 mg/2 mL Neb INHALATION ×2 (08:41→20:58)
[2021-03-01 08:54] LABS: Glucose Point of Care 384 mg/dL (70-110)
[2021-03-01] MEDS: fluconazole 100 mg Tablet 200 MG PO (09:41)
[2021-03-01] MEDS: levothyroxine 100 mcg Tablet PO (09:43)
[2021-03-01] MEDS: enoxaparin 40 mg/0.4 mL Syringe SUBCUT (09:43)
--- NOTE | 2021-03-01 11:45 | PC.NURSE ---
Pt is able to swallow ice chips, when staff attempted water she chocked on it and threw up.
--- NOTE | 2021-03-01 12:23 | PC.NURSE ---
Pt very aggitated, kicking legs and yelling. Precedex increase for this reason.
[2021-03-01 13:06] LABS: Glucose Point of Care 292 mg/dL (70-110)
--- NOTE | 2021-03-01 15:06 | PC.RESP ---
1115 pt extubated and placed on 3lpm nc
--- NOTE | 2021-03-01 15:40 | PM.PN ---
Subjective Subjective: Interval history: Seen multiple times during the day. Early in the morning sedation was turned off and patient was following commands so was extubated by around 1 PM. Post extubation patient has been on 3 L saturating 95%. Precedex was also turned off as patient was drowsy. Patient has been complaining of occasional back pain. Has remained hemodynamically stable and afebrile. Medications: Reviewed: Yes Vitals/I&O/Wt Last Vital Signs Temp 98.1 F 03/01/21 15:00 Pulse 73 03/01/21 15:00 Resp 14 03/01/21 15:00 BP 163/90 03/01/21 15:00 Pulse Ox 98 03/01/21 15:00 03/01/21 03/01/21 03/01/21 06:59 14:59 22:59 Intake Total 2739.408 / 4176.718 52.257 / 52.257 Output Total 1100 / 2850 Balance 1639.408 / 1326.718 52.257 / 52.257 Physical Exam Narrative: EXAM NARRATIVE: General: Extubated, groggy, AO x2 HEENT: PERRLA, pupils bilaterally equal and reactive Chest: Bilateral coarse crackles present more in the right middle and lower zone, left lower zone, equal good air entry bilaterally CVS: S1-S2 regular, no murmurs, no tachycardia, no gallops, no rubs Abdomen: Soft, nontender, no organomegaly, bowel sounds present Neuro: Moving all 4 limbs, pupils bilaterally equal and reactive, weak Urinary Catheter Management^: Boykin: Cath Placed During This Visit: yes Reason for Continuing Indwelling Catheter: Accurate Measurement of Urinary Output in Critically Ill Patients Urinary Catheter Date of Insertion: 02/22/21 Urinary Catheter Time of Insertion: 09:00 Data : 03/01/21 05:00 03/01/21 05:00 Micro: Microbiology 02/25/21 11:45 Gram Stain - Final Sputum - Endotracheal Tube Aspirate Sputum Culture - Preliminary Yeast 02/23/21 12:49 Blood Culture - Final Blood NO GROWTH AFTER 5 DAYS A&P Assessment and plan (1) Staphylococcus aureus bacteremia: Status: Acute (2) Septicemia: Status: Acute (3) Polysubstance abuse: Status: Acute (4) Respiratory failure with hypoxia: Status: Acute Qualifiers: Chronicity: acute Qualified Code(s): J96.01 - Acute respiratory failure with hypoxia (5) Pneumonia: Status: Acute Qualifiers: Laterality: bilateral Lung location: unspecified part of lung Pneumonia type: due to methicillin-sensitive Staphylococcus aureus (MSSA) Qualified Code(s): J15.211 - Pneumonia due to Methicillin susceptible Staphylococcus aureus (6) Metabolic encephalopathy: Status: Acute (7) E-coli UTI: Status: Acute (8) Methamphetamine abuse: Status: Acute (9) Alcohol use disorder: Status: Acute (10) Diabetes mellitus, type II: Status: Acute Qualifiers: Diabetes mellitus prison insulin use: unspecified prison insulin use status Diabetes mellitus complication status: with other specified complication Qualified Code(s): E11.69 - Type 2 diabetes mellitus with other specified complication (11) Hypertension: Status: Acute Qualifiers: Hypertension type: essential hypertension Qualified Code(s): I10 - Essential (primary) hypertension (12) Anxiety with depression: Status: Acute Additional A&P Information Acute metabolic encephalopathy: Improving. Most likely secondary to hepatic encephalopathy along with hypernatremia and severe sepsis. Continue Suboxone once daily. Hepatic encephalopathy: Resolved. Ammonia levels normal. Patient having good bowel movements. Lactulose as needed. Hypernatremia: Continue on D5 at 75 cc/h. Patient extubated so n.p.o. for now. Will have swallow eval tomorrow Repeat BMP in evening. Hold off on any further Lasix. Severe sepsis: MSSA bacteremia: Most likely secondary to pneumonia and UTI. Urine culture positive for E. coli. Sensitivity appreciated. Keep mean arterial pressure over 65. Strict input output charting. Appreciate ID and Pulm recommendations. MRSA negative, Urine Legionella, bacterial antigen negative. Repeat Bcx negative so far. Sputum Cx appreciated. Abx changed as per ID. Continue with Cefaziolin. Will cover for MSSA and E.coli. Patient has finished 5-day course of Flagyl. Add fluconazole to finish of a 7-day course for yeast in sputum. Will await speciation. RENEE appreciated-negative for IE Hypoxic respiratory failure: Resolved. Extubated on March 01-3 liters. Most likely secondary to acute metabolic encephalopathy, chemical pneumonitis versus bacterial pneumonia versus viral pneumonitis. Repeat chest x-ray done today shows resolution of consolidations. Repeat Covid PCR negative. Respiratory viral panel sent. On minimal ventilator support for now. Wean Solu-Medrol to 40 mg IV daily. Most likely can switch to oral tomorrow. DuoNebs every 6 hour, budesonide twice daily. Type 2 diabetes mellitus: Blood sugars running high as patient is on steroids and D5. Insulin sliding scale at high-dose protocol. Increase Lantus to 20 units twice daily. Most likely blood sugars will be better once of D5 and lower steroids. Anion gap normal. Transaminitis: Most likely from severe sepsis along with history of hepatitis C. Check hep C RNA level. LDH and liver ultrasound results appreciated. HIV negative. Full code. Lovenox will help with DVT prophylaxis. NPO. Await swallow evaluation. Protonix PUD prophylaxis. PT/OT/ST evaluation Patient's care discussed with patient's mother over the phone. All the concerns and questions were answered. Severely guarded prognosis. Case discussed with pulmonology. Appreciate recommendations. Attestations Medical Necessity Statement*: Requires further hospitalization for management of acute metabolic encephalopathy, hypernatremia, MSSA bacteremia, post extubation status. Critical Care Time: The high probability of a clinically significant, sudden or life threatening deterioration of the patient's [respiratory, neurological, renal, system(s) required my full and direct attention, intervention and personal management. The critical care time is as shown. This time is in addition to time spent performing any reported procedures but includes the following: [x] Data and vital sign review and interpretation [x] Patient assessment, examination and intervention [x] Documentation [x] Medication orders and management Critical Care Time (min): 90 Coding Level of Care Code Acute Mortgage Lender for [facility] Fwd Diagnoses Staphylococcus aureus bacteremia R78.81; B95.61 Septicemia A41.9 Polysubstance abuse F19.10 Respiratory failure with hypoxia J96.01 Chronicity: acute Pneumonia J15.211 Laterality: bilateral Lung location: unspecified part of lung Pneumonia type: due to methicillin-sensitive Staphylococcus aureus (MSSA) Metabolic encephalopathy G93.41 E-coli UTI N39.0; B96.20 Methamphetamine abuse F15.10 Alcohol use disorder Diabetes mellitus, type II E11.69 Diabetes mellitus industrial relations commissioner insulin use: unspecified industrial relations commissioner insulin use status Diabetes mellitus complication status: with other specified complication Hypertension I10 Hypertension type: essential hypertension Anxiety with depression F41.8
[2021-03-01 17:55] LABS: Glucose Point of Care 172 mg/dL (70-110)
[2021-03-01] MEDS: insulin glargine 100 units/1 mL 10 UNIT SUBCUT (19:04)
[2021-03-01] MEDS: fluoxetine 10 mg Capsule 30 MG PO (19:07)
[2021-03-01 20:26] LABS: Anion Gap 13.4 (5-19); Blood Urea Nitrogen 19 mg/dL (6-20); Calcium 8.1 mg/dL (8.5-10.5); Carbon Dioxide 21 mmol/L (22-29); Chloride 115 mmol/L (98-107); Glomerular Filtration Rate 136.6 mL/min (90-130); Glucose 191 mg/dL (65-115); Osmolality Calculated 309 mOsm/kg (285-295); Potassium 3.4 mmol/L (3.5-5.1); Sodium 146 mmol/L (136-145)
[2021-03-01 20:38] LABS: Glucose Point of Care 201 mg/dL (70-110)
[2021-03-01] MEDS: HYDROmorphone 1 mg/mL INJ 1 mL 0.5 MG IVP (23:12)
[2021-03-02] VITALS (29 sets, daily range): BP systolic 123–172; BP diastolic 62–99; PULSE 58–83; RESP 11–20; TEMP 36.4–37.1; O2SAT 91–100
[2021-03-02 01:00] LABS: Glucose Point of Care 190 mg/dL (70-110)
[2021-03-02] MEDS: diphenhydrAMINE 25 mg Capsule PO (02:46)
[2021-03-02] MEDS: ipratropium-albuterol 3 mL Neb INHALATION ×2 (03:10→21:34)
[2021-03-02 04:29] LABS: Basophils % 0.2 %; Hematocrit 28.7 % (37.0-47.0); Hemoglobin 8.7 g/dL (11.5-15.3); Lymphocytes # 1.1 10^3/uL (0.8-4.8); Lymphocytes % 9.2 %; Mean Corpuscular HGB Conc 30.3 g/dL (30.0-36.0); Mean Corpuscular Hemoglobin 24.1 pg (28.0-34.0); Mean Corpuscular Volume 79.5 fL (81-99); Monocytes # 0.5 10^3/uL (0.2-0.9); Monocytes % 4.6 %; Neutrophils # 9.99 10^3/uL (1.8-7.7); Neutrophils % 85.1 %; Nucleated Red Blood Cells % 0 %; Platelet Count 63 10^3/cmm (130-400); Red Blood Count 3.61 10^6/uL (4.1-5.3); Red Cell Distribution Width 25.2 % (12.1-15.1); White Blood Count 11.7 10^3/uL (4.0-10.0)
[2021-03-02 04:47] LABS: Alanine Aminotransferase 20 U/L (0-33); Albumin Level 2.3 g/dL (3.5-5.2); Alkaline Phosphatase 136 IU/L (35-105); Anion Gap 9.7 (5-19); Aspartate Amino Transferase 59 U/L (0-32); Blood Urea Nitrogen 18 mg/dL (6-20); Calcium 7.8 mg/dL (8.5-10.5); Carbon Dioxide 23 mmol/L (22-29); Chloride 112 mmol/L (98-107); Globulin 3.5 g/dL (1.3-4.6); Glomerular Filtration Rate 176.8 mL/min (90-130); Glucose 219 mg/dL (65-115); Osmolality Calculated 301 mOsm/kg (285-295); Potassium 3.7 mmol/L (3.5-5.1); Sodium 141 mmol/L (136-145); Total Bilirubin 1.6 mg/dL (0.15-1.2); Total Protein 5.8 g/dL (6.6-8.7)
[2021-03-02 08:08] LABS: Glucose Point of Care 238 mg/dL (70-110)
[2021-03-02] MEDS: enoxaparin 40 mg/0.4 mL Syringe SUBCUT (08:12)
[2021-03-02] MEDS: pregabalin 25 mg Capsule PO ×2 (08:13→17:13)
[2021-03-02] MEDS: levothyroxine 100 mcg Tablet PO (08:13)
[2021-03-02] MEDS: fluoxetine 10 mg Capsule 30 MG PO (08:13)
[2021-03-02] MEDS: FUROsemide 40 mg Tablet PO (08:13)
[2021-03-02] MEDS: insulin glargine 100 units/1 mL 20 UNIT SUBCUT ×2 (08:17→21:29)
[2021-03-02 08:52] LABS: Glucose Point of Care 242 mg/dL (70-110)
--- NOTE | 2021-03-02 10:17 | PC.NURSE ---
Report called to BINH Liang. No further questions. Patient transferred to [facility], [facility] with patient.
--- NOTE | 2021-03-02 10:23 | PC.NURSE ---
suboxone rx given to charge nurse on [facility].
[2021-03-02 12:03] LABS: Glucose Point of Care 214 mg/dL (70-110)
--- NOTE | 2021-03-02 12:59 | P.PN_ITS ---
Subjective Subjective: Interval history: The patient was seen and examined this morning. She is doing remarkably well. Her mental status is significantly better. She is complaining of pain in her lower extremity likely secondary to diabetic neuropathy. Has MSSA bacteremia. Medications: Reviewed: Yes Vitals/I&O/Wt Last Vital Signs Temp 97.9 F 03/02/21 11:25 Pulse 72 03/02/21 11:25 Resp 18 03/02/21 11:25 BP 135/72 03/02/21 11:25 Pulse Ox 96 03/02/21 11:25 03/01/21 03/02/21 03/02/21 22:59 06:59 14:59 Intake Total 1816.737 / 1928.994 310 / 2238.994 300 / 300 Output Total 1000 / 1000 800 / 1800 Balance 816.737 / 928.994 -490 / 438.994 300 / 300 Physical Exam Narrative: EXAM NARRATIVE: General: Patient is awake alert and oriented, in no distress. Neck: No JVD Respiratory: Auscultation: Crackles at bilateral lung bases, no wheezing or rhonchi Cardiovascular: Regular rate and rhythm, S1-S2 present, no murmur, no peripheral edema. Abdomen: Soft, nontender, distended from obesity, positive bowel sound Musculoskeletal: No obvious joint deformity Skin: No rash Neuro: Mental status is normal, no gross cranial nerve deficit, normal motor and coordination. Urinary Catheter Management^: Boyikn: Cath Placed During This Visit: yes Reason for Continuing Indwelling Catheter: Accurate Measurement of Urinary Output in Critically Ill Patients Urinary Catheter Date of Insertion: 02/22/21 Urinary Catheter Time of Insertion: 09:00 Data : 03/02/21 04:06 03/02/21 04:06 Micro: Microbiology 02/25/21 11:45 Gram Stain - Final Sputum - Endotracheal Tube Aspirate Sputum Culture - Preliminary Yeast Attestation for Other Data: I personally reviewed and interpreted the following: Other data: I have reviewed her laboratory, microbiologic and neurologic data. A&P Assessment and plan (1) Staphylococcus aureus bacteremia: The patient has MSSA bacteremia. The latest blood culture has been negative. The patient has history of drug abuse and I do have concerns for infective endocarditis. I am going to obtain a transthoracic echocardiogram. For now, the patient will continue with Ancef. Status: Acute (2) Respiratory failure with hypoxia: Her respiratory failure is resolving. This was likely secondary to as piration pneumonitis. She was extubated yesterday. Status: Acute Qualifiers: Chronicity: acute Qualified Code(s): J96.01 - Acute respiratory failure with hypoxia (3) Polysubstance abuse: Patient has history of polysubstance abuse which is likely contributing to her overall health concerns. Status: Acute (4) Metabolic encephalopathy: The patient likely had toxic metabolic encephalopathy which has improved significantly. Status: Acute (5) Diabetes mellitus, type II: I have discontinued the Solu-Medrol so I am hoping the blood sugar control will be better. I have started her on a very small dose of pregabalin to see if that would help with her peripheral neuropathy. Starting her on her home dose of Lasix. The patient is stated to get transferred out of the ICU. Status: Acute Qualifiers: Diabetes mellitus custodial insulin use: unspecified intermission coordinator insulin use status Diabetes mellitus complication status: with other specified complication Qualified Code(s): E11.69 - Type 2 diabetes mellitus with other specified complication Attestations Medical Necessity Statement*: Will defer to the primary team Coding Level of Care Code Acute Junior Web Designer for [facility] Fwd Diagnoses Staphylococcus aureus bacteremia R78.81; B95.61 Respiratory failure with hypoxia J96.01 Chronicity: acute Polysubstance abuse F19.10 Metabolic encephalopathy G93.41 Diabetes mellitus, type II E11.69 Diabetes mellitus custodial insulin use: unspecified intermission coordinator insulin use status Diabetes mellitus complication status: with other specified complication Time Spent (min) 37
--- NOTE | 2021-03-02 13:32 | PM.PN ---
Subjective Subjective: Interval history: Gnia reports she was doing okay. She was eager to get out of the ICU. I saw her just prior to transfer. She reported some global pain. Medications: Reviewed: Yes Vitals/I&O/Wt Last Vital Signs Temp 97.9 F 03/02/21 11:25 Pulse 72 03/02/21 11:25 Resp 18 03/02/21 11:25 BP 135/72 03/02/21 11:25 Pulse Ox 96 03/02/21 11:25 03/01/21 03/02/21 03/02/21 22:59 06:59 14:59 Intake Total 1816.737 / 1928.994 310 / 2238.994 1300 / 1300 Output Total 1000 / 1000 800 / 1800 Balance 816.737 / 928.994 -490 / 674.849 2287 / 1300 Physical Exam Narrative: EXAM NARRATIVE: General exam no distress Neck is supple no lymphadenopathy or thyromegaly Cardiovascular regular rate and rhythm without murmur Lungs clear Abdomen is soft, positive bowel sounds Extremities no cyanosis clubbing or edema Skin widespread small scabs over body mainly limbs. Urinary Catheter Management^: Boykin: Cath Placed During This Visit: yes Reason for Continuing Indwelling Catheter: Accurate Measurement of Urinary Output in Critically Ill Patients Urinary Catheter Date of Insertion: 02/22/21 Urinary Catheter Time of Insertion: 09:00 Data : 03/02/21 04:06 03/02/21 04:06 Micro: Microbiology 02/25/21 11:45 Gram Stain - Final Sputum - Endotracheal Tube Aspirate Sputum Culture - Preliminary Yeast A&P Assessment and plan (1) Staphylococcus aureus bacteremia: Currently on cefazolin Subsequent blood cultures demonstrate clearing Previous broad-spectrum antibiotics have been discontinued RENEE negative for infective endocarditis Cultures negative since 02/22. Recent sputum culture growing yeast. Colonization likely. Initiate nystatin. Not a good candidate for PICC line. Status: Acute (2) Septicemia: See above Status: Acute (3) Polysubstance abuse: Status: Acute (4) Respiratory failure with hypoxia: Secondary to sepsis/bacteremia Covid PCR negative CTA with no evidence of pulmonary embolism Bacterial antigen panel as well as Legionella antigen negative Status: Acute Qualifiers: Chronicity: acute Qualified Code(s): J96.01 - Acute respiratory failure with hypoxia (5) Pneumonia: Status: Acute Qualifiers: Laterality: bilateral Lung location: unspecified part of lung Pneumonia type: due to methicillin-sensitive Staphylococcus aureus (MSSA) Qualified Code(s): J15.211 - Pneumonia due to Methicillin susceptible Staphylococcus aureus (6) Metabolic encephalopathy: Improved Status: Acute (7) E-coli UTI: Present on admission, and has been adequately treated Status: Acute (8) Methamphetamine abuse: Status: Acute (9) Alcohol use disorder: Status: Acute (10) Diabetes mellitus, type II: Sliding scale insulin, with long-acting insulin Status: Acute Qualifiers: Diabetes mellitus rn long term care insulin use: unspecified rn long term care insulin use status Diabetes mellitus complication status: with other specified complication Qualified Code(s): E11.69 - Type 2 diabetes mellitus with other specified complication (11) Hypertension: Status: Acute Qualifiers: Hypertension type: essential hypertension Qualified Code(s): I10 - Essential (primary) hypertension (12) Anxiety with depression: Status: Acute Additional A&P Information Hypernatremia, resolved Hepatic encephalopathy, resolved Severe sepsis, resolving. Secondary to methicillin sensitive staph aureus. RENEE negative for infective endocarditis Respiratory failure, currently resolved and off ventilator on no supplemental oxygen. Transaminitis. HIV negative. Most likely secondary to sepsis Anemia, thrombocytopenia. Likely bone marrow suppression from polysubstance use, alcoholic liver disease. Afib. Resolved. Currently in NSR Attestations Medical Necessity Statement*: Needs continued hospitalization for IV antibiotics secondary to methicillin sensitive staph aureus. Coding Level of Care Code Acute Supervisor Assembly And Packing for [facility] Fwd Diagnoses Staphylococcus aureus bacteremia R78.81; B95.61 Septicemia A41.9 Polysubstance abuse F19.10 Respiratory failure with hypoxia J96.01 Chronicity: acute Pneumonia J15.211 Laterality: bilateral Lung location: unspecified part of lung Pneumonia type: due to methicillin-sensitive Staphylococcus aureus (MSSA) Metabolic encephalopathy G93.41 E-coli UTI N39.0; B96.20 Methamphetamine abuse F15.10 Alcohol use disorder Diabetes mellitus, type II E11.69 Diabetes mellitus rn long term care insulin use: unspecified rn long term care insulin use status Diabetes mellitus complication status: with other specified complication Hypertension I10 Hypertension type: essential hypertension Anxiety with depression F41.8
[2021-03-02 16:56] LABS: Glucose Point of Care 131 mg/dL (70-110)
[2021-03-02] MEDS: nystatin 100,000 unit/mL UDC 5 mL 500000 UNIT PO ×2 (17:12→21:29)
[2021-03-02] MEDS: acetaminophen 325 mg Tablet 650 MG PO (19:54)
[2021-03-02 21:19] LABS: Glucose Point of Care 162 mg/dL (70-110)
[2021-03-03] VITALS (11 sets, daily range): BP systolic 138–171; BP diastolic 76–83; PULSE 71–107; RESP 16–18; TEMP 36.4–36.7; O2SAT 94–97
[2021-03-03 00:20] LABS: Glucose Point of Care 137 mg/dL (70-110)
[2021-03-03] MEDS: ondansetron 2 mg/ML SDV 2 mL 4 MG IVP (00:56)
[2021-03-03 05:53] LABS: Basophils % 0.1 %; Eosinophils # 0.1 10^3/uL (0.0-0.8); Eosinophils % 0.6 %; Hematocrit 32.9 % (37.0-47.0); Hemoglobin 9.8 g/dL (11.5-15.3); Lymphocytes # 2.5 10^3/uL (0.8-4.8); Lymphocytes % 17.1 %; Mean Corpuscular HGB Conc 29.8 g/dL (30.0-36.0); Mean Corpuscular Hemoglobin 23.7 pg (28.0-34.0); Mean Corpuscular Volume 79.5 fL (81-99); Mean Platelet Volume 10.3 fL (7.4-10.4); Monocytes # 1.2 10^3/uL (0.2-0.9); Monocytes % 7.9 %; Neutrophils # 10.78 10^3/uL (1.8-7.7); Neutrophils % 73.5 %; Nucleated Red Blood Cells % 0 %; Platelet Count 92 10^3/cmm (130-400); Red Blood Count 4.14 10^6/uL (4.1-5.3); Red Cell Distribution Width 26.2 % (12.1-15.1); White Blood Count 14.7 10^3/uL (4.0-10.0)
[2021-03-03 06:07] LABS: Alanine Aminotransferase 21 U/L (0-33); Albumin Level 2.3 g/dL (3.5-5.2); Alkaline Phosphatase 149 IU/L (35-105); Anion Gap 12.2 (5-19); Aspartate Amino Transferase 57 U/L (0-32); Blood Urea Nitrogen 16 mg/dL (6-20); Calcium 7.8 mg/dL (8.5-10.5); Carbon Dioxide 22 mmol/L (22-29); Chloride 112 mmol/L (98-107); Globulin 3.8 g/dL (1.3-4.6); Glomerular Filtration Rate 246.4 mL/min (90-130); Glucose 139 mg/dL (65-115); Osmolality Calculated 299 mOsm/kg (285-295); Potassium 3.2 mmol/L (3.5-5.1); Sodium 143 mmol/L (136-145); Total Bilirubin 1.8 mg/dL (0.15-1.2); Total Protein 6.1 g/dL (6.6-8.7)
[2021-03-03 06:17] LABS: Add RBC Morph Yes; Anisocytosis 2+; Hypochromasia 2+; RBC Morph Comp No; Slide Review Slide Review Perform; Target Cells 1+
[2021-03-03] MEDS: acetaminophen 325 mg Tablet 650 MG PO ×2 (06:19→16:57)
--- NOTE | 2021-03-03 06:21 | PC.NURSE ---
SHIFT SUMMARY Has been awake much of the night. Has confusion as to which hospital she is in but does know she is in a hospital somewhere. Also confused about date and time but did know last evening that it was her twins birthdays. Moans alot and c/o hurting all over body jeison her legs.Has been given po Tylenol X2 this shift. Receiving IV antibiotics. Taking po liquids well and 1000ml output from Boykin. Has multiple small scabbed sores over her body and extremities. Pitting edema to hands, arms and legs. Has a blister on her right hand. CVL in place to right subclavian
[2021-03-03] MEDS: FUROsemide 40 mg Tablet PO (08:05)
[2021-03-03] MEDS: pregabalin 25 mg Capsule PO ×2 (08:05→16:57)
[2021-03-03] MEDS: potassium chloride ER 20 mEq Tablet 40 MEQ PO ×2 (08:05→12:15)
[2021-03-03] MEDS: fluoxetine 10 mg Capsule 30 MG PO (08:06)
[2021-03-03] MEDS: nystatin 100,000 unit/mL UDC 5 mL 500000 UNIT PO (08:06)
[2021-03-03] MEDS: insulin glargine 100 units/1 mL 20 UNIT SUBCUT ×2 (08:06→21:01)
[2021-03-03] MEDS: levothyroxine 100 mcg Tablet PO (08:09)
[2021-03-03] MEDS: enoxaparin 40 mg/0.4 mL Syringe SUBCUT (08:09)
[2021-03-03 08:21] LABS: Magnesium 2.1 mg/dL (1.7-2.3)
[2021-03-03] MEDS: ipratropium-albuterol 3 mL Neb INHALATION ×3 (10:08→20:35)
[2021-03-03 11:54] LABS: Glucose Point of Care 250 mg/dL (70-110)
--- NOTE | 2021-03-03 13:14 | PM.PN ---
Subjective Subjective: Interval history: Gina reports she is doing okay. She seems somewhat emotional today. Medications: Reviewed: Yes Vitals/I&O/Wt Last Vital Signs Temp 98.0 F 03/03/21 11:51 Pulse 77 03/03/21 11:51 Resp 18 03/03/21 11:51 BP 138/76 03/03/21 11:51 Pulse Ox 94 03/03/21 11:51 03/02/21 03/03/21 03/03/21 22:59 06:59 14:59 Intake Total 120 / 2640 420 / 3060 780 / 780 Output Total 1000 / 1000 1000 / 1999 Balance -880 / 1640 -580 / 1060 780 / 780 Physical Exam Narrative: EXAM NARRATIVE: General exam no distress Neck is supple no lymphadenopathy or thyromegaly Cardiovascular regular rate and rhythm without murmur Lungs clear Abdomen is soft, positive bowel sounds Extremities no cyanosis clubbing or edema Skin widespread small scabs over body mainly limbs. Urinary Catheter Management^: Boykin: Cath Placed During This Visit: yes Reason for Continuing Indwelling Catheter: Acute Urinary Retention or Obstruction Urinary Catheter Date of Insertion: 02/22/21 Urinary Catheter Time of Insertion: 09:00 Data : 03/03/21 04:40 03/03/21 04:40 A&P Assessment and plan (1) Staphylococcus aureus bacteremia: Currently on cefazolin Subsequent blood cultures demonstrate clearing with first negative culture being February 22 Previous broad-spectrum antibiotics have been discontinued RENEE negative for infective endocarditis Recent sputum culture growing yeast. Colonization likely. Nystatin was initiated Not a good candidate for PICC line. Plan on giving 2 weeks IV antibiotics here, then converting to p.o. Will need outpatient infectious disease follow-up Status: Acute (2) Septicemia: See above Status: Acute (3) Polysubstance abuse: Status: Acute (4) Respiratory failure with hypoxia: Secondary to sepsis/bacteremia Covid PCR negative CTA with no evidence of pulmonary embolism Bacterial antigen panel as well as Legionella antigen negative Status: Acute Qualifiers: Chronicity: acute Qualified Code(s): J96.01 - Acute respiratory failure with hypoxia (5) Pneumonia: Status: Acute Qualifiers: Laterality: bilateral Lung location: unspecified part of lung Pneumonia type: due to methicillin-sensitive Staphylococcus aureus (MSSA) Qualified Code(s): J15.211 - Pneumonia due to Methicillin susceptible Staphylococcus aureus (6) Metabolic encephalopathy: Improved Status: Acute (7) E-coli UTI: Present on admission, and has been adequately treated Status: Acute (8) Methamphetamine abuse: Status: Acute (9) Alcohol use disorder: Status: Acute (10) Diabetes mellitus, type II: Sliding scale insulin, with long-acting insulin Status: Acute Qualifiers: Diabetes mellitus exterminator helper insulin use: unspecified assisted insulin use status Diabetes mellitus complication status: with other specified complication Qualified Code(s): E11.69 - Type 2 diabetes mellitus with other specified complication (11) Hypertension: Status: Acute Qualifiers: Hypertension type: essential hypertension Qualified Code(s): I10 - Essential (primary) hypertension (12) Anxiety with depression: Status: Acute Additional A&P Information Hypernatremia, resolved Hepatic encephalopathy, resolved Severe sepsis, resolving. Secondary to methicillin sensitive staph aureus. RENEE negative for infective endocarditis Respiratory failure, currently resolved and off ventilator on no supplemental oxygen. Transaminitis. HIV negative. Most likely secondary to sepsis Anemia, thrombocytopenia. Likely bone marrow suppression from polysubstance use, alcoholic liver disease. This appears to be improving. Afib. Resolved. Currently in NSR Hypokalemia, supplement. Attestations Medical Necessity Statement*: Needs continued hospitalization for IV antibiotics secondary to methicillin sensitive staph aureus bacteremia Coding Level of Care Code Acute Director Account Management for [facility] Fw Diagnoses Staphylococcus aureus bacteremia R78.81; B95.61 Septicemia A41.9 Polysubstance abuse F19.10 Respiratory failure with hypoxia J96.01 Chronicity: acute Pneumonia J15.211 Laterality: bilateral Lung location: unspecified part of lung Pneumonia type: due to methicillin-sensitive Staphylococcus aureus (MSSA) Metabolic encephalopathy G93.41 E-coli UTI N39.0; B96.20 Methamphetamine abuse F15.10 Alcohol use disorder Diabetes mellitus, type II E11.69 Diabetes mellitus exterminator helper insulin use: unspecified assisted insulin use status Diabetes mellitus complication status: with other specified complication Hypertension I10 Hypertension type: essential hypertension Anxiety with depression F41.8
[2021-03-03 13:18] LABS: HIV 1 & 2 Antibody Non-Reactive (Non-Reactiv); HIV 1 & 2 Antigen Non-Reactive (Non-Reactiv)
[2021-03-03 13:41] LABS: Hepatitis B Surface AB 242.6 (11.5-1000); Hepatitis B Surface Antigen Non-Reactive (Nonreactive); Hepatitis C Virus Antibody Reactive (Nonreactive)
--- NOTE | 2021-03-03 14:41 | PC.NUTR ---
Nutrition follow up: Pt has only consumed 1 meal since extubation on 03/01/21, and only 25% at that meal. All others 0% per chart. Will add Glucerna with meals for additional kcal/protein. Recommend to encourage po intakes of meals/supplements and assist as needed. Also recommend to obtain current weight when possible. Notified Dr. Reyes of poor po intakes. See full RD assessment for further details.
--- NOTE | 2021-03-03 15:24 | PM.PN ---
Subjective Subjective: Interval history: Infectious Disease progress note: extubated since last seen LAst blood cx + from 02/21, NGTD since 02/22 no acute interim events Medications: Reviewed: Yes Vitals/I&O/Wt Last Vital Signs Temp 98.0 F 03/03/21 11:51 Pulse 77 03/03/21 11:51 Resp 18 03/03/21 11:51 BP 138/76 03/03/21 11:51 Pulse Ox 94 03/03/21 11:51 03/03/21 03/03/21 03/03/21 06:59 14:59 22:59 Intake Total 420 / 3060 900 / 900 Output Total 1000 / 2000 Balance -580 / 1060 900 / 900 Physical Exam Narrative: EXAM NARRATIVE: GEN: Intubated, sedated CVS: S1S2 N RS: CTA B/L Abd: Soft, nt/nd , bs+ FIRE DEPARTMENT MARINE ENGINEER: unable to assess Urinary Catheter Management^: Boykin: Cath Placed During This Visit: yes Reason for Continuing Indwelling Catheter: Acute Urinary Retention or Obstruction Urinary Catheter Date of Insertion: 02/22/21 Urinary Catheter Time of Insertion: 09:00 Data : 03/06/21 04:55 03/06/21 04:55 A&P Assessment and plan (1) Septicemia: Status: Acute (2) Polysubstance abuse: Status: Acute (3) Respiratory failure with hypoxia: Status: Acute Qualifiers: Chronicity: acute Qualified Code(s): J96.01 - Acute respiratory failure with hypoxia (4) Pneumonia: Status: Acute Qualifiers: Laterality: bilateral Lung location: unspecified part of lung Pneumonia type: due to methicillin-sensitive Staphylococcus aureus (MSSA) Qualified Code(s): J15.211 - Pneumonia due to Methicillin susceptible Staphylococcus aureus Additional A&P Information 40-year-old presenting with altered mental status, acute hypoxic respiratory failure, blood cultures positive for MSSA. Overall picture consistent with MSSA septicemia Last positive blood cx : 02/21 Clear since 02/22 Source not entirely clear. Blood cx cleared quickly CT abdomen without intrabdominal source. CTA chest with B/L airspace consolidation, negative for COVID 19, may represent septic embolization vs chemical pneumonitis from h/o inhalational drug abuse. RENEE 02/24 without signs of infective endocarditis Ideally recommend to continue cefazolin 2 g IV every 8 hours at least for total 4 weeks of treatment. However, it is not currently feasible to discharge patient with picc line in place due to h/o drug use. Therefore, as an alternative can complete at least 2 weeks of IV cefazolin while she remains inpatient and then discharge with 2 weeks of po doxycycline. F/up in infectious disease clinic in one month Attestations Medical Necessity Statement*: ongoing need for iv abx as above Coding Level of Care Code Acute Casting Machine Operator Automatic for [facility] Fwd Diagnoses Septicemia A41.9 Polysubstance abuse F19.10 Respiratory failure with hypoxia J96.01 Chronicity: acute Pneumonia J15.211 Laterality: bilateral Lung location: unspecified part of lung Pneumonia type: due to methicillin-sensitive Staphylococcus aureus (MSSA)
[2021-03-03 16:41] LABS: Glucose Point of Care 177 mg/dL (70-110)
[2021-03-03 17:52] LABS: Adenovirus Not Detected (Not Detected); Human Metapneumovirus Not Detected (Not Detected); Human Parainflu Virus 1 Not Detected (Not Detected); Human Parainflu Virus 2 Not Detected (Not Detected); Human Parainflu Virus 3 Not Detected (Not Detected); Human Rsv A Not Detected (Not Detected); Influenza A Not Detected (Not Detected); Influenza B Not Detected (Not Detected); Rhinovirus/Enterovirus Detected (Not Detected)
--- NOTE | 2021-03-03 18:00 | PM.PSYCN ---
Providers/Reason for Consult Consulting Physican/Specialty*: Berlin Boogie MD Reason for Consult*: S/p presumed medication overdose, history of suicidal ideation, depression, anxiety Attending Physician: Gaudencio Reyes MD Primary Care Provider: FARHAT Rivera Psych Consult HPI History of Present Illness Gina Jay is a 40 year old female who was admitted to the hospital on February 21, 2021 with altered mental status. UDS was positive for opiates, amphetamines, benzodiazepines, and cannabinoids. Due to inadequate respiratory status and becoming agitated and combative, she was intubated on February 22, 2021. Blood cultures were positive for MSSA. Covid tests were negative. Consult was requested because the patient was presumed to have taken an overdose. She has a previous psychiatric history of depression, anxiety, suicidal ideation, marijuana and methamphetamine use, as well as treatment with Suboxone. Last psychiatric admission was 04/09/2020?04/12/2020 for movement problems and hallucinations related to heavy methamphetamine use. The admission from 02/25/2020?02/28/2020 was to treat suicidal ideation and increased alcohol intake. The patient tells me that it has been stressful being in the hospital with her various medical conditions. She feels depressed and anxious but not suicidal. She has pain in her back, hips, and legs due to laying in bed. She has no memory of feeling suicidal prior to admission, nor taking an overdose of anything. She does describe daily marijuana use as well as drinking up to 20 shooters at a time. She denies recent methamphetamine use and denies using bath salts. Psychiatric history: As above. Substance use history: As above. Family history: Her mother had bipolar disorder, her paternal uncle committed suicide, but she denies substance abuse among family members. Psychosocial history: The patient says she was raised in [place], [place]. She was and had 5 children. Her in October 2019 of alcohol complications. 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 Legal history: No legal difficulties. Medical history: Medical history includes diabetes mellitus, hypertension, hypothyroidism, and polysubstance abuse. Meds Current Medications: Current Medications Generic Name Dose Route Start Last Admin Trade Name Freq PRN Reason Stop Dose Admin Acetaminophen 650 mg 02/21/21 05:32 03/04/21 00:56 Acetaminophen 32 5 Mg Tablet PO 650 mg Q6H PRN Administration Mild/Mod Pain Or Temp >/= 101 Albuterol/Ipratrop ium 3 ml 02/23/21 15:00 03/04/21 02:47 Ipratropium-Albu terol 3 Ml Neb INHALATION 3 ml Q6H.RESPIRATORY S CH Administration Enoxaparin Sodium 40 mg 02/23/21 09:00 03/03/21 08:09 Enoxaparin 40 Mg /0.4 Ml Syringe SUBCUT 40 mg Q24H LEILA Administration Fluoxetine HCl 30 mg 03/01/21 16:35 03/03/21 08:06 Fluoxetine 10 Mg Capsule PO 30 mg DAILY LEILA Administration Furosemide 40 mg 03/02/21 08:00 03/03/21 08:05 Furosemide 40 Mg Tablet PO 40 mg DAILY@0800 LEILA Administration Cefazolin Sodium 2 ,000 mg/ 60 mls @ 100 mls/ hr 02/25/21 10:30 03/04/21 06:39 Sodium Chloride IV Infused Q8H LEILA Infusion Insulin Aspart 0 unit 02/28/21 12:00 03/04/21 07:58 Insulin Aspart 1 00 Unit/1 Ml SUBCUT Not Given Q4H [facility] Protocol Insulin Glargine 20 unit 03/01/21 20:00 03/03/21 21:01 Insulin Glargine 100 Units/1 Ml SUBCUT 20 unit Q12H LEILA Administration Levothyroxine Sodi um 100 mcg 02/24/21 09:00 03/03/21 08:09 Levothyroxine 10 0 Mcg Tablet PO 100 mcg DAILY LEILA Administration Nystatin 500,000 unit 03/02/21 17:00 03/03/21 21:01 Nystatin 100,000 Unit/Ml Udc 5 Ml PO Not Given QID LEILA Ondansetron HCl 4 mg 02/21/21 05:32 03/03/21 00:56 Ondansetron 2 Mg /Ml Sdv 2 Ml IVP 4 mg Q8H PRN Administration vomiting, or N/V if npo Pregabalin 25 mg 03/02/21 09:00 03/03/21 16:57 Pregabalin 25 Mg Capsule PO 25 mg BID LEILA Administration PFSH NPU PFSH: Medical History Abdominal pain Anxiety with depression Cholelithiasis Congestive heart failure Cystitis Diabetes mellitus, type II Drug-induced psychotic disorder FH: breast cancer in first degree relative H/O chronic hepatitis Hepatic encephalopathy Hypertension Hypothyroid Opiate dependence 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 She was somewhat agitated, but cooperative and interactive. She participated for much of the interview with her eyes closed. She had psychomotor agitation. Speech was at a regular rate and rhythm without pressure. She was alert and oriented to person, day and date (within 1 day), but not place. She did remember where she was after I told her. Attention was adequate for the exam and intact formal testing: She is able to spell the word WORLD correctly forwards and backwards. Memory is somewhat impaired. She remembers 3/3 words immediately and 1/3 at 3 minutes. She knows the name of the current president only. Mood is depressed and anxious. Affect is sad and anxious. Thought process is logical and goal-directed. Thought content: She denies auditory visual hallucinations. She denies suicidal and homicidal ideation at this time. There are no delusions noted. Vitals/I&O/Wt Last Vital Signs Temp 97.9 F 03/04/21 07:11 Pulse 74 03/04/21 07:11 Resp 18 03/04/21 07:11 BP 144/78 03/04/21 07:11 Pulse Ox 97 03/04/21 07:11 03/03/21 03/04/21 03/04/21 22:59 06:59 14:59 Intake Total 300 / 1200 540 / 1740 Output Total 2600 / 2600 1000 / 3600 Balance -2300 / -1400 -460 / -1860 Physical Exam Urinary Catheter Management^: Boykin: Cath Placed During This Visit: yes Reason for Continuing Indwelling Catheter: Assist Healing of Perineal & Sacral Wounds- Incontinent Patients Urinary Catheter Date of Insertion: 02/22/21 Urinary Catheter Time of Insertion: 09:00 A&P Assessment and plan (1) Adjustment reaction with anxiety and depression: Status: Acute Additional A&P Information The patient has had serious medical concerns, resulting in intubation. This has been quite stressful for her and has exacerbated her depression and anxiety. She would like medication to help her feel calm her. Recommend something nonaddictive, such as hydroxyzine 25 to 50 mg 4 times daily, and/or Zoloft 25 mg daily, if there are no contraindications. Involuntary Hold Information 96 Hour Hold: 96 Hour Involuntary Admission: No Attestations NPU Medical Necessity Statement*: N/A?attestation will be provided by medical providers. Coding Level of Care Code Acute Warehouse Distribution Specialist for [facility] Diagnoses Adjustment reaction with anxiety and depression F43.23
[2021-03-03 21:05] LABS: Glucose Point of Care 191 mg/dL (70-110)
[2021-03-04] VITALS (11 sets, daily range): BP systolic 132–147; BP diastolic 72–85; PULSE 64–82; RESP 16–18; TEMP 36.5–36.8; O2SAT 93–97
[2021-03-04 00:47] LABS: Glucose Point of Care 158 mg/dL (70-110)
[2021-03-04] MEDS: acetaminophen 325 mg Tablet 650 MG PO ×2 (00:56→11:45)
[2021-03-04] MEDS: ipratropium-albuterol 3 mL Neb INHALATION ×3 (02:47→20:20)
[2021-03-04 04:00] LABS: Glucose Point of Care 171 mg/dL (70-110)
[2021-03-04 05:55] LABS: Basophils % 0.1 %; Eosinophils # 0.1 10^3/uL (0.0-0.8); Eosinophils % 1.2 %; Hematocrit 28.2 % (37.0-47.0); Hemoglobin 8.6 g/dL (11.5-15.3); Lymphocytes % 17.2 %; Mean Corpuscular HGB Conc 30.5 g/dL (30.0-36.0); Mean Corpuscular Hemoglobin 24.5 pg (28.0-34.0); Mean Corpuscular Volume 80.3 fL (81-99); Mean Platelet Volume 10.5 fL (7.4-10.4); Monocytes % 8.9 %; Neutrophils # 8.18 10^3/uL (1.8-7.7); Neutrophils % 71.9 %; Nucleated Red Blood Cells % 0.2 %; Platelet Count 87 10^3/cmm (130-400); Red Blood Count 3.51 10^6/uL (4.1-5.3); Red Cell Distribution Width 26.1 % (12.1-15.1); White Blood Count 11.4 10^3/uL (4.0-10.0)
[2021-03-04 06:15] LABS: Alanine Aminotransferase 18 U/L (0-33); Albumin Level 2.2 g/dL (3.5-5.2); Alkaline Phosphatase 149 IU/L (35-105); Anion Gap 8.6 (5-19); Aspartate Amino Transferase 43 U/L (0-32); Blood Urea Nitrogen 13 mg/dL (6-20); Calcium 7.4 mg/dL (8.5-10.5); Carbon Dioxide 22 mmol/L (22-29); Chloride 110 mmol/L (98-107); Globulin 3.5 g/dL (1.3-4.6); Glomerular Filtration Rate 176.8 mL/min (90-130); Glucose 120 mg/dL (65-115); Osmolality Calculated 285 mOsm/kg (285-295); Potassium 3.6 mmol/L (3.5-5.1); Sodium 137 mmol/L (136-145); Total Bilirubin 1.3 mg/dL (0.15-1.2); Total Protein 5.7 g/dL (6.6-8.7)
[2021-03-04 06:16] LABS: Ammonia 79 umol/L (11-51)
[2021-03-04 08:10] LABS: Glucose Point of Care 91 mg/dL (70-110)
--- NOTE | 2021-03-04 09:31 | PC.SOCIAL ---
IMM updated IMM updated with patient. Verbalized an understanding. Copy provided. Initialed, dated, timed, and placed in chart.
[2021-03-04] MEDS: enoxaparin 40 mg/0.4 mL Syringe SUBCUT (09:32)
[2021-03-04] MEDS: lactulose oral liq 20 gm/30 mL UDC PO (09:33)
[2021-03-04] MEDS: insulin glargine 100 units/1 mL 20 UNIT SUBCUT ×2 (09:33→21:37)
[2021-03-04] MEDS: levothyroxine 100 mcg Tablet PO (09:33)
[2021-03-04] MEDS: pregabalin 25 mg Capsule PO ×2 (09:33→17:30)
[2021-03-04] MEDS: fluoxetine 10 mg Capsule 30 MG PO (09:33)
[2021-03-04] MEDS: FUROsemide 40 mg Tablet PO (09:33)
[2021-03-04 10:58] LABS: Glucose Point of Care 167 mg/dL (70-110)
--- NOTE | 2021-03-04 13:33 | PM.PN ---
Subjective Subjective: Interval history: I discussed with the patient the need to increase p.o. intake. She has been taking very little according to dietary. Medications: Reviewed: Yes Vitals/I&O/Wt Last Vital Signs Temp 98.3 F 03/04/21 12:00 Pulse 72 03/04/21 12:00 Resp 18 03/04/21 12:00 BP 136/77 03/04/21 12:00 Pulse Ox 95 03/04/21 12:00 03/03/21 03/04/21 03/04/21 22:59 06:59 14:59 Intake Total 300 / 1200 540 / 1740 60 / 60 Output Total 2600 / 2600 1000 / 3600 Balance -2300 / -1400 -460 / -1860 60 / 60 Physical Exam Narrative: EXAM NARRATIVE: General exam conversive, no distress Neck supple no lymphadenopathy or thyromegaly Cardiovascular regular rate and rhythm without murmur Lungs clear Abdomen is soft with positive bowel sounds Extremities no cyanosis clubbing or edema Urinary Catheter Management^: Boykin: Cath Placed During This Visit: yes Reason for Continuing Indwelling Catheter: Assist Healing of Perineal & Sacral Wounds- Incontinent Patients Urinary Catheter Date of Insertion: 02/22/21 Urinary Catheter Time of Insertion: 09:00 Data : 03/04/21 05:24 03/04/21 05:24 A&P Assessment and plan (1) Staphylococcus aureus bacteremia: Currently on cefazolin Subsequent blood cultures demonstrate clearing with first negative culture being February 22 Previous broad-spectrum antibiotics have been discontinued RENEE negative for infective endocarditis Recent sputum culture growing yeast. Colonization likely. Nystatin was initiated Not a good candidate for PICC line. Plan on giving 2 weeks IV antibiotics here, then converting to p.o. Will need outpatient infectious disease follow-up. Appreciate their consultation in house. Plan is to give her doxycycline p.o. on discharge for 2 weeks. Discharge anticipated on the . Status: Acute (2) Septicemia: See above Status: Acute (3) Polysubstance abuse: Status: Acute (4) Respiratory failure with hypoxia: Secondary to sepsis/bacteremia Covid PCR negative CTA with no evidence of pulmonary embolism Bacterial antigen panel as well as Legionella antigen negative Status: Acute Qualifiers: Chronicity: acute Qualified Code(s): J96.01 - Acute respiratory failure with hypoxia (5) Pneumonia: Status: Acute Qualifiers: Laterality: bilateral Lung location: unspecified part of lung Pneumonia type: due to methicillin-sensitive Staphylococcus aureus (MSSA) Qualified Code(s): J15.211 - Pneumonia due to Methicillin susceptible Staphylococcus aureus (6) Metabolic encephalopathy: Improved Patient still with occasionally some confusion. Ammonia level high. She reports she is supposed to be on this at home. Will initiate lactulose here. Status: Acute (7) E-coli UTI: Present on admission, and has been adequately treated Status: Acute (8) Methamphetamine abuse: Status: Acute (9) Alcohol use disorder: Status: Acute (10) Diabetes mellitus, type II: Sliding scale insulin, with long-acting insulin Status: Acute Qualifiers: Diabetes mellitus watermelon inspector insulin use: unspecified watermelon inspector insulin use status Diabetes mellitus complication status: with other specified complication Qualified Code(s): E11.69 - Type 2 diabetes mellitus with other specified complication (11) Hypertension: Status: Acute Qualifiers: Hypertension type: essential hypertension Qualified Code(s): I10 - Essential (primary) hypertension (12) Anxiety with depression: Add hydroxyzine as needed. She is also currently on fluoxetine. Psychiatry consultation appreciated. Status: Acute Attestations Medical Necessity Statement*: Needs continued hospitalization for IV antibiotics secondary to bacteremia. Coding Level of Care Code Acute Optometric Coordinator for [facility] Fwd Diagnoses Staphylococcus aureus bacteremia R78.81; B95.61 Septicemia A41.9 Polysubstance abuse F19.10 Respiratory failure with hypoxia J96.01 Chronicity: acute Pneumonia J15.211 Laterality: bilateral Lung location: unspecified part of lung Pneumonia type: due to methicillin-sensitive Staphylococcus aureus (MSSA) Metabolic encephalopathy G93.41 E-coli UTI N39.0; B96.20 Methamphetamine abuse F15.10 Alcohol use disorder Diabetes mellitus, type II E11.69 Diabetes mellitus watermelon inspector insulin use: unspecified watermelon inspector insulin use status Diabetes mellitus complication status: with other specified complication Hypertension I10 Hypertension type: essential hypertension Anxiety with depression F41.8
[2021-03-04] MEDS: ondansetron 2 mg/ML SDV 2 mL 4 MG IVP (17:50)
[2021-03-04 18:03] LABS: Glucose Point of Care 122 mg/dL (70-110)
[2021-03-04 21:03] LABS: Glucose Point of Care 141 mg/dL (70-110)
[2021-03-05] VITALS (7 sets, daily range): BP systolic 91–155; BP diastolic 57–83; PULSE 68–76; RESP 17–18; TEMP 36.6–37.3; O2SAT 96–99
[2021-03-05] MEDS: acetaminophen 325 mg Tablet 650 MG PO (03:09)
--- NOTE | 2021-03-05 06:24 | PC.NURSE ---
Shift Note Frequent safety and comfort rounds continue. Orders and/or nursing care completed as indicated. Patient monitored for response to intervention and treatment. Patient afebrile and vital signs WNL this shift. Pt complained of hip pain and was treated with PO tylenol. Pt states the tylenol is not strong enough to treat her pain. Patient had adequate urine output >800 mls. Urine noted to be very dark yellow and has a strong smell, Pt states it espinoza when she urinates. Pt refused evening dose of lactulose and nystatin oral suspension. Education provided on current medications. Patient is very weak and requires assistance to the bedside commode, pt could not ambulate very far. PT sitting on side of the bed watching TV at this time, denies any needs at this time. Will continue to monitor.
[2021-03-05 07:07] LABS: Glucose Point of Care 110 mg/dL (70-110)
[2021-03-05] MEDS: fluoxetine 10 mg Capsule 30 MG PO (08:43)
[2021-03-05] MEDS: FUROsemide 40 mg Tablet PO (08:44)
[2021-03-05] MEDS: insulin glargine 100 units/1 mL 20 UNIT SUBCUT ×2 (08:44→22:08)
[2021-03-05] MEDS: levothyroxine 100 mcg Tablet PO (08:44)
[2021-03-05] MEDS: pregabalin 25 mg Capsule PO ×2 (08:44→17:10)
[2021-03-05] MEDS: sertraline 50 mg Tablet 25 MG PO (08:44)
[2021-03-05] MEDS: lactulose oral liq 20 gm/30 mL UDC PO (08:45)
[2021-03-05] MEDS: enoxaparin 40 mg/0.4 mL Syringe SUBCUT (08:45)
[2021-03-05] MEDS: ondansetron 2 mg/ML SDV 2 mL 4 MG IVP (08:50)
--- NOTE | 2021-03-05 10:21 | PM.PN ---
Subjective Subjective: Interval history: Gina reports she is doing a little bit better. Still weak. We discussed likely discharge on Tuesday. Medications: Reviewed: Yes Vitals/I&O/Wt Last Vital Signs Temp 98.1 F 03/05/21 08:00 Pulse 71 03/05/21 08:00 Resp 18 03/05/21 08:00 BP 152/82 03/05/21 08:00 Pulse Ox 98 03/05/21 08:00 03/04/21 03/05/21 03/05/21 22:59 06:59 14:59 Intake Total 300 / 360 720 / 1080 420 / 420 Output Total 850 / 850 Balance 300 / 360 -130 / 230 420 / 420 Physical Exam Narrative: EXAM NARRATIVE: General exam conversive, no distress Neck supple no lymphadenopathy or thyromegaly Cardiovascular regular rate and rhythm without murmur Lungs clear Abdomen is soft with positive bowel sounds Extremities no cyanosis clubbing or edema Urinary Catheter Management^: Boykin: Cath Placed During This Visit: yes, but has since been removed by the nurse Reason for Continuing Indwelling Catheter: Decision to DC Catheter Urinary Catheter Date of Insertion: 02/22/21 Urinary Catheter Time of Insertion: 09:00 Date Urinary Catheter Removed: 03/04/21 Time Urinary Catheter Discontinued: 10:00 Data : 03/04/21 05:24 03/04/21 05:24 A&P Assessment and plan (1) Staphylococcus aureus bacteremia: Currently on cefazolin Subsequent blood cultures demonstrate clearing with first negative culture being February 22 Previous broad-spectrum antibiotics have been discontinued RENEE negative for infective endocarditis Recent sputum culture growing yeast. Colonization likely. Nystatin was initiated Not a good candidate for PICC line. Plan on giving 2 weeks IV antibiotics here, then converting to p.o. Will need outpatient infectious disease follow-up. Appreciate their consultation in house. Plan is to give her doxycycline p.o. on discharge for 2 weeks. Discharge anticipated on the . Status: Acute (2) Septicemia: See above Status: Acute (3) Polysubstance abuse: Status: Acute (4) Respiratory failure with hypoxia: Secondary to sepsis/bacteremia Covid PCR negative CTA with no evidence of pulmonary embolism Bacterial antigen panel as well as Legionella antigen negative Status: Acute Qualifiers: Chronicity: acute Qualified Code(s): J96.01 - Acute respiratory failure with hypoxia (5) Pneumonia: Status: Acute Qualifiers: Laterality: bilateral Lung location: unspecified part of lung Pneumonia type: due to methicillin-sensitive Staphylococcus aureus (MSSA) Qualified Code(s): J15.211 - Pneumonia due to Methicillin susceptible Staphylococcus aureus (6) Metabolic encephalopathy: Greatly improved. Back to baseline today. Status: Acute (7) E-coli UTI: Present on admission, and has been adequately treated Status: Acute (8) Methamphetamine abuse: Status: Acute (9) Alcohol use disorder: Status: Acute (10) Diabetes mellitus, type II: Sliding scale insulin, with long-acting insulin Status: Acute Qualifiers: Diabetes mellitus predatory animal exterminator insulin use: unspecified skilled nursing insulin use status Diabetes mellitus complication status: with other specified complication Qualified Code(s): E11.69 - Type 2 diabetes mellitus with other specified complication (11) Hypertension: Status: Acute Qualifiers: Hypertension type: essential hypertension Qualified Code(s): I10 - Essential (primary) hypertension (12) Anxiety with depression: Add hydroxyzine as needed. She is also currently on fluoxetine. Psychiatry consultation appreciated. Status: Acute Attestations Medical Necessity Statement*: Needs continued hospitalization for IV antibiotics secondary to bacteremia. Coding Level of Care Code Acute Singe Machine Operator for [facility] Fwd Diagnoses Staphylococcus aureus bacteremia R78.81; B95.61 Septicemia A41.9 Polysubstance abuse F19.10 Respiratory failure with hypoxia J96.01 Chronicity: acute Pneumonia J15.211 Laterality: bilateral Lung location: unspecified part of lung Pneumonia type: due to methicillin-sensitive Staphylococcus aureus (MSSA) Metabolic encephalopathy G93.41 E-coli UTI N39.0; B96.20 Methamphetamine abuse F15.10 Alcohol use disorder Diabetes mellitus, type II E11.69 Diabetes mellitus skilled nursing insulin use: unspecified predatory animal exterminator insulin use status Diabetes mellitus complication status: with other specified complication Hypertension I10 Hypertension type: essential hypertension Anxiety with depression F41.8
[2021-03-05 11:15] LABS: Glucose Point of Care 167 mg/dL (70-110)
[2021-03-05 16:55] LABS: Glucose Point of Care 78 mg/dL (70-110)
[2021-03-05 20:41] LABS: Glucose Point of Care 121 mg/dL (70-110)
--- NOTE | 2021-03-05 23:38 | PC.NURSE ---
Patient refused evening dose of lactulose and nystatin. Patient bowel sounds are hypoactive and Pt stated she had not had a BM for several days. Upon reviewing the I&O flowsheet Nurse noted last BM charted was on 03/01/2021. Nurse educated patient on benefits of lactulose and patient still refused the medication.
[2021-03-06] VITALS (7 sets, daily range): BP systolic 114–159; BP diastolic 65–95; PULSE 70–83; RESP 17–19; TEMP 36.4–36.9; O2SAT 95–99
[2021-03-06] MEDS: ondansetron 2 mg/ML SDV 2 mL 4 MG IVP (05:19)
[2021-03-06 05:27] LABS: Basophils % 0.1 %; Eosinophils # 0.2 10^3/uL (0.0-0.8); Eosinophils % 1.4 %; Hematocrit 27.6 % (37.0-47.0); Hemoglobin 8.5 g/dL (11.5-15.3); Lymphocytes # 1.9 10^3/uL (0.8-4.8); Lymphocytes % 18.3 %; Mean Corpuscular HGB Conc 30.8 g/dL (30.0-36.0); Mean Corpuscular Hemoglobin 24.9 pg (28.0-34.0); Mean Corpuscular Volume 80.7 fL (81-99); Mean Platelet Volume 9.9 fL (7.4-10.4); Monocytes # 1.1 10^3/uL (0.2-0.9); Monocytes % 10.4 %; Neutrophils # 7.31 10^3/uL (1.8-7.7); Neutrophils % 69.1 %; Nucleated Red Blood Cells % 0 %; Platelet Count 114 10^3/cmm (130-400); Red Blood Count 3.42 10^6/uL (4.1-5.3); Red Cell Distribution Width 27.2 % (12.1-15.1); White Blood Count 10.6 10^3/uL (4.0-10.0)
[2021-03-06] MEDS: acetaminophen 325 mg Tablet 650 MG PO (05:47)
[2021-03-06 05:49] LABS: Alanine Aminotransferase 13 U/L (0-33); Albumin Level 2.4 g/dL (3.5-5.2); Alkaline Phosphatase 173 IU/L (35-105); Anion Gap 11.9 (5-19); Aspartate Amino Transferase 48 U/L (0-32); Blood Urea Nitrogen 6 mg/dL (6-20); Calcium 7.3 mg/dL (8.5-10.5); Carbon Dioxide 22 mmol/L (22-29); Chloride 105 mmol/L (98-107); Globulin 3.8 g/dL (1.3-4.6); Glomerular Filtration Rate 176.8 mL/min (90-130); Glucose 136 mg/dL (65-115); Osmolality Calculated 282 mOsm/kg (285-295); Sodium 136 mmol/L (136-145); Total Bilirubin 1.3 mg/dL (0.15-1.2); Total Protein 6.2 g/dL (6.6-8.7)
[2021-03-06 05:52] LABS: Potassium 2.9 mmol/L (3.5-5.1)
--- NOTE | 2021-03-06 06:00 | PC.NURSE ---
Shift Note Frequent safety and comfort rounds continue. Orders and/or nursing care completed as indicated. Patient monitored for response to intervention and treatment. Patient was afebrile, BP and pulse WNL this shift, O2 saturation >95% on RA. Pt had adequate urine output for the shift. PT refused evening doses of Nystatin and Lactulose. No BM this shift and bowel sounds noted to be hypoactive. Pt educated on current medications and their uses. Patient verbalized understanding, but still refused the nystatin and lactulose. Pt c/o headache and nausea and was treated with PO tylenol and IV Zofran. Will continue to monitor.
[2021-03-06 06:45] LABS: Glucose Point of Care 197 mg/dL (70-110)
[2021-03-06] MEDS: fluoxetine 10 mg Capsule 30 MG PO (08:23)
[2021-03-06] MEDS: pregabalin 25 mg Capsule PO ×2 (08:23→18:17)
[2021-03-06] MEDS: levothyroxine 100 mcg Tablet PO (08:24)
[2021-03-06] MEDS: FUROsemide 40 mg Tablet PO (08:24)
[2021-03-06] MEDS: insulin glargine 100 units/1 mL 20 UNIT SUBCUT ×2 (08:25→20:29)
[2021-03-06] MEDS: enoxaparin 40 mg/0.4 mL Syringe SUBCUT (08:25)
[2021-03-06] MEDS: sertraline 50 mg Tablet 25 MG PO (08:25)
[2021-03-06 10:12] LABS: Magnesium 1.5 mg/dL (1.7-2.3)
[2021-03-06] MEDS: potassium chloride ER 20 mEq Tablet 40 MEQ PO (10:37)
[2021-03-06] MEDS: lidocaine 1% 5 ML in potassium chloride premix 100 ML 25 ML IV ×2 (10:37→14:58)
[2021-03-06 11:35] LABS: Glucose Point of Care 119 mg/dL (70-110)
--- NOTE | 2021-03-06 12:09 | PM.PN ---
Subjective Subjective: Interval history: Gina reports she is weak, but now able to make it to the bedside commode and take a few steps in the room. She does not want rehabilitation. She wants to go home when appropriate. Medications: Reviewed: Yes Vitals/I&O/Wt Last Vital Signs Temp 98.1 F 03/06/21 11:32 Pulse 82 03/06/21 11:32 Resp 17 03/06/21 11:32 BP 149/88 03/06/21 11:32 Pulse Ox 99 03/06/21 11:32 03/05/21 03/06/21 03/06/21 22:59 06:59 14:59 Intake Total 60 / 780 60 / 840 240 / 240 Balance 60 / 780 60 / 840 240 / 240 Physical Exam Narrative: EXAM NARRATIVE: General exam conversive, no distress Neck supple no lymphadenopathy or thyromegaly Cardiovascular regular rate and rhythm without murmur Lungs clear Abdomen is soft with positive bowel sounds Extremities no cyanosis clubbing or edema Urinary Catheter Management^: Boykin: Cath Placed During This Visit: yes, but has since been removed by the nurse Reason for Continuing Indwelling Catheter: Decision to DC Catheter Urinary Catheter Date of Insertion: 02/22/21 Urinary Catheter Time of Insertion: 09:00 Date Urinary Catheter Removed: 03/04/21 Time Urinary Catheter Discontinued: 10:00 Data : 03/06/21 04:55 03/06/21 04:55 A&P Assessment and plan (1) Staphylococcus aureus bacteremia: Currently on cefazolin Subsequent blood cultures demonstrate clearing with first negative culture being February 22 Previous broad-spectrum antibiotics have been discontinued RENEE negative for infective endocarditis Recent sputum culture growing yeast. Colonization likely. Nystatin was initiated Not a good candidate for PICC line with past history of drug use and overdose Plan on giving 2 weeks IV antibiotics here, with discharge planned on Tuesday. This is recommendation given by infectious disease consultation obtained in house. Will need outpatient infectious disease follow-up. Appreciate their consultation in house. Plan is to give her doxycycline p.o. on discharge for 2 weeks. Discharge anticipated on the . Status: Acute (2) Septicemia: See above Status: Acute (3) Polysubstance abuse: Psychiatry consultation obtained. Hydroxyzine added as needed. Status: Acute (4) Respiratory failure with hypoxia: Secondary to sepsis/bacteremia Covid PCR negative CTA with no evidence of pulmonary embolism Bacterial antigen panel as well as Legionella antigen negative Status: Acute Qualifiers: Chronicity: acute Qualified Code(s): J96.01 - Acute respiratory failure with hypoxia (5) Pneumonia: Clinically resolved. On room air. Status: Acute Qualifiers: Laterality: bilateral Lung location: unspecified part of lung Pneumonia type: due to methicillin-sensitive Staphylococcus aureus (MSSA) Qualified Code(s): J15.211 - Pneumonia due to Methicillin susceptible Staphylococcus aureus (6) Metabolic encephalopathy: Greatly improved. Back to baseline today. 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 She is also currently on fluoxetine. Psychiatry consultation appreciated. Status: Acute Additional A&P Information Hypokalemia, supplement today Hypomagnesemia supplement today Full code Repeat BMP, magnesium level tomorrow. No need for CBC. Attestations Medical Necessity Statement*: Needs continued hospitalization to finish 2 weeks of IV antibiotics prior to transitioning to p.o. as outlined in the infectious disease consultation and follow-up. Significantly low potassium and magnesium today which are supplemented. Coding Level of Care Code Acute Spanish Speaking Babysitter for [facility] Fwd Diagnoses Staphylococcus aureus bacteremia R78.81; B95.61 Septicemia A41.9 Polysubstance abuse F19.10 Respiratory failure with hypoxia J96.01 Chronicity: acute Pneumonia J15.211 Laterality: bilateral Lung location: unspecified part of lung Pneumonia type: due to methicillin-sensitive Staphylococcus aureus (MSSA) Metabolic encephalopathy G93.41 E-coli UTI N39.0; B96.20 Methamphetamine abuse F15.10 Alcohol use disorder Diabetes mellitus, type II E11.69 Diabetes mellitus skilled nursing insulin use: unspecified skilled nursing insulin use status Diabetes mellitus complication status: with other specified complication Hypertension I10 Hypertension type: essential hypertension Anxiety with depression F41.8
[2021-03-06] MEDS: lactulose oral liq 20 gm/30 mL UDC PO (14:57)
[2021-03-06 17:27] LABS: Glucose Point of Care 119 mg/dL (70-110)
[2021-03-06 20:35] LABS: Glucose Point of Care 133 mg/dL (70-110)
[2021-03-07] VITALS: BP 155/82; PULSE 78; RESP 19; TEMP 36.7; O2SAT 96
[2021-03-07] MEDS: ondansetron 2 mg/ML SDV 2 mL 4 MG IVP (00:28)
[2021-03-07 04:00] VITALS: BP 123/76; PULSE 74; RESP 18; TEMP 36.6; O2SAT 98
[2021-03-07 06:57] LABS: Glucose Point of Care 125 mg/dL (70-110)
[2021-03-07 07:12] LABS: Anion Gap 12.5 (5-19); Blood Urea Nitrogen 5 mg/dL (6-20); Calcium 7.8 mg/dL (8.5-10.5); Carbon Dioxide 21 mmol/L (22-29); Chloride 108 mmol/L (98-107); Glomerular Filtration Rate 246.4 mL/min (90-130); Glucose 135 mg/dL (65-115); Magnesium 2.1 mg/dL (1.7-2.3); Osmolality Calculated 285 mOsm/kg (285-295); Potassium 3.5 mmol/L (3.5-5.1); Sodium 138 mmol/L (136-145)
[2021-03-07 08:00] VITALS: BP 135/77; PULSE 76; RESP 20; TEMP 37.1; O2SAT 95
[2021-03-07] MEDS: pregabalin 25 mg Capsule PO (08:57)
[2021-03-07] MEDS: fluoxetine 10 mg Capsule 30 MG PO (08:57)
[2021-03-07] MEDS: FUROsemide 40 mg Tablet PO (08:57)
[2021-03-07] MEDS: levothyroxine 100 mcg Tablet PO (08:57)
[2021-03-07] MEDS: sertraline 50 mg Tablet 25 MG PO (08:57)
[2021-03-07] MEDS: insulin glargine 100 units/1 mL 20 UNIT SUBCUT (08:58)
--- NOTE | 2021-03-07 10:23 | P.DS_ITS ---
Discharge Providers Date of Admission: 02/21/21 06:18 Date of Discharge: March 07, 2021 Attending Provider at Admission: Rachel Haro Attending Provider at Discharge: Bob Glasgow MD Consults: Pulmonology: Datar ID: Dr. Frias Primary Care Provider: FARHAT Rivera Diagnoses at Discharge Discharge Diagnosis (1) Septicemia: Status: Acute (2) Polysubstance abuse: Status: Acute (3) Respiratory failure with hypoxia: Status: Acute Qualifiers: Chronicity: acute Qualified Code(s): J96.01 - Acute respiratory failure with hypoxia (4) Pneumonia: Status: Acute Qualifiers: Laterality: bilateral Lung location: unspecified part of lung Pneumonia type: due to methicillin-sensitive Staphylococcus aureus (MSSA) Qualified Code(s): J15.211 - Pneumonia due to Methicillin susceptible Staphylococcus aureus Reason for Visit Reason for Visit: POSSIBLE OVERDOSE Hospital Course Hospital Course Gina Jay is a 40 year old female with a past medical history significant for diabetes mellitus, hypertension, hypothyroidism, and polysubstance abuse who was presented to the hospital on February 21 with altered mental status. On admission U tox was positive for opiates, chest x-ray showed mild to moderate left lower lung opacities. During hospitalization she continued to have increasing oxygen requirements initially on BiPAP and then became increasingly agitated and combative and therefore was eventually intubated on February 22. It is believed that patient's agitation and increasing oxygen requirements was most likely secondary to drug overdose, eventually leading to withdrawal from Suboxone being complicated by aspiration pneumonia and chemical pneumonitis from bath salts which patient has been inhaling as an outpatient. Patient's hospitalization was complicated by difficult extubation because of poor mentation from metabolic encephalopathy due to drug overdose and withdrawal from pain medications, hepatic encephalopathy. She was treated with continuing her home dose of Suboxone which caused her to have bradycardia and hypothermia for which dose of Suboxone was decreased to once a day along with lactulose enema which was later changed to as needed once she had appropriate bowel movements and trending down of ammonia levels. Eventually patient was extubated on March 01 to nasal cannula. During hospitalization patient was also found to have blood culture positive for MSSA. Pulmonology and ID were consulted. Patient had RENEE which ruled out infective endocarditis. Patient has finished 2 weeks of IV antibiotics with cefazolin and unfortunately cannot get it PICC line placed because of her extensive history of drug abuse. For hypoxic respiratory failure patient was started on broad-spectrum antibiotics and IV steroid therapy for chemical pneumonitis. Her pneumonitis improved quickly on IV steroids which were slowly weaned off. Due to prolonged hospitalization patient was seen by physical therapy and she has been gradually improving. Patient is been discharged in hemodynamically stable condition with advised to follow-up with a primary care provider within next 1 to 3 days. Patient is also advised to take doxycycline which is the antibiotics for next 2 weeks. Patient has been counseled in detail to avoid any further polysubstance abuse. Patient is also advised to decrease the use of Suboxone to once or twice a day as when patient was getting 3 times a day which is an outpatient dose she was becoming hypothermic and bradycardic. Patient is to follow-up with her outpatient pain clinic for further pain meds. Physical Exam Narrative: EXAM NARRATIVE: General: AOx3, no acute distress HEENT: PERRLA, pupils bilaterally equal and reactive Chest: Normal vesicular breath sounds bilaterally, occasional rhonchi present in the right mid and lower zone, good equal air entry by bilaterally CVS: S1-S2 regular, soft pansystolic murmur at apex radiating to anterior axillary line, no tachycardia, no gallops, no rubs Abdomen: Soft, nontender, no organomegaly, bowel sounds present Neuro: Moving all 4 limbs, pupils bilaterally equal and reactive, no facial deformity, power 5 x 5 all limbs. Urinary Catheter Management^: Boykin: Cath Placed During This Visit: yes, but has since been removed by the nurse Reason for Continuing Indwelling Catheter: Decision to DC Catheter Urinary Catheter Date of Insertion: 02/22/21 Urinary Catheter Time of Insertion: 09:00 Date Urinary Catheter Removed: 03/04/21 Time Urinary Catheter Discontinued: 10:00 Discharge Data Data Completed and Pending: Completed Studies During Hospitalization Category Date Time Status CT angio chest PE protcl [id number] Rout ine Cat Scan 02/24/21 09:[address] head wo con* 7 0450 Routine Cat Scan 02/27/21 16:[address] head wo con* 7 0450 Urgent Cat Scan 02/21/21 00:17 Completed XR chest 1V hilaria ble 44907 Q48H Exams 02/24/21 06:00 Completed XR chest 1V hilaria ble 59207 Q48H Exams 02/26/21 06:00 Completed XR chest 1V hilaria ble 56373 Q48H Exams 02/28/21 06:00 Completed XR chest 1V hilaria ble [id number] Routine Exams 02/22/21 06:35 Completed XR chest 1V hilaria ble [id number] Routine Exams 02/23/21 06:00 Completed XR chest 1V hilaria ble [id number] Stat Exams 02/21/21 00:17 Completed XR chest 1V hilaria ble [id number] Stat Exams 02/23/21 12:31 Completed XR chest 1V hilaria ble 97927 Urgent Exams 02/25/21 07:38 Completed CV. echo complete * [id number] Routine Ultrasound 02/23/21 09:37 Completed CV. echo transeso phageal 36730 Rout ine Ultrasound 02/24/21 12:00 Com[place] liver 52309 Ro utine Ultrasound 02/25/21 06:00 Completed Pending at discharge Category Date Time Status CA echo doppler c omplete Routine Exams 03/02/21 07:07 Stop Req Sputum Culture an d Gram Stain Delicia ne Lab 02/25/21 11:45 Results Addt'l Data from Hospital Stay: Laboratory Results WBC 10.6 10^3/uL (4.0 -10.0) H 03/06/21 04:55 RBC 3.42 10^6/uL (4.1 -5.3) L 03/06/21 04:55 Hgb 8.5 g/dL (11.5-15 .3) L 03/06/21 04:55 Hct 27.6 % (37.0-47.0 ) L 03/06/21 04:55 MCV 80.7 fL (81-99) L 03/06/21 04:55 MCH 24.9 pg (28.0-34. 0) L 03/06/21 04:55 MCHC 30.8 g/dL (30.0-3 6.0) 03/06/21 04:55 RDW 27.2 % (12.1-15.1 ) H 03/06/21 04:55 Plt Count 114 10^3/cmm (130 -400) L 03/06/21 04:55 MPV 9.9 fL (7.4-10.4) 03/06/21 04:55 Neut % (Auto) 69.1 % 03/06/21 04:55 Lymph % (Auto) 18.3 % 03/06/21 04:55 [place] % (Auto) 10.4 % 03/06/21 04:55 Eos % (Auto) 1.4 % 03/06/21 04:55 Baso % (Auto) 0.1 % 03/06/21 04:55 Neut # (Auto) 7.31 10^3/uL (1.8 -7.7) 03/06/21 04:55 Lymph # (Auto) 1.9 10^3/uL (0.8- 4.8) 03/06/21 04:55 Lajas # (Auto) 1.1 10^3/uL (0.2- 0.9) H 03/06/21 04:55 Eos # (Auto) 0.2 10^3/uL (0.0- 0.8) 03/06/21 04:55 Baso # (Auto) 0.0 10^3/uL (0.0- 0.1) 03/06/21 04:55 Nucleated RBC % (a uto) 0 % 03/06/21 04:55 Nucleated RBCs # 0.0 /100WBC 03/06/21 04:55 Hypochromasia 2+ H 03/03/21 04:40 Anisocytosis 2+ H 03/03/21 04:40 Macrocytosis Trace 02/22/21 02:40 Target Cells 1+ H 03/03/21 04:40 Ovalocytes Trace 02/22/21 02:40 Bren Cells 2+ H 02/22/21 02:40 ESR 75 mm/hr (0-15) H 02/23/21 09:05 Haptoglobin 133.0 mg/L (30-20 0) 02/23/21 09:05 Haptoglobin Cancelled 02/23/21 09:05 PT 19.60 SECONDS (12 .1-14.9) H 02/23/21 09:05 INR 1.62 (0.8-1.2) H 02/23/21 09:05 APTT 35.1 SECONDS (23. 9-36.7) 02/23/21 09:05 Fibrinogen 533 mg/dL (174-49 8) H 02/23/21 09:05 Fibrinogen Cancelled 02/23/21 09:05 D-Dimer 3.29 ug/mIFEU (0- 0.59) H 02/23/21 09:05 D-Dimer Cancelled 02/23/21 09:05 Specimen Type Arterial 02/26/21 04:50 Sample Site Radial, left 02/26/21 04:50 ABG pH 7.41 (7.35-7.45) 02/26/21 04:50 ABG pCO2 37.1 mmHg (35-45) 02/26/21 04:50 ABG pO2 75.5 mmHg (80.0-1 00.0) L 02/26/21 04:50 ABG HCO3 23.5 mmol/L (22-2 6) 02/26/21 04:50 ABG O2 Saturation 83.2 02/25/21 05:29 ABG Base Excess -0.9 mmol/L (-2.0 -2.0) 02/26/21 04:50 Lencho Test Pos 02/26/21 04:50 A-a O2 Gradient 48.6 mmHg (5-10) H 02/25/21 05:29 Hematocrit 30.0 % (37-47) L 02/26/21 04:50 Hgb O2 Saturation 81.5 % (95-100) L 02/25/21 05:29 Carboxyhemoglobin 1.0 %THgb (0.4-20 .1) 02/25/21 05:29 Methemoglobin 1.0 % (0.4-1.5) 02/25/21 05:29 Total Hemoglobin 10.7 g/dL (12-16) L 02/25/21 05:29 Sodium 150.0 mmol/L (131 -143) H 02/25/21 05:29 Potassium 3.4 mmol/L (3.5-5 .0) L 02/25/21 05:29 Glucose 246.0 mg/dL (70-1 15) H 02/25/21 05:29 Ionized Calcium 1.3 mmol/L (1.1-1 .4) 02/25/21 05:29 Respiration Rate 16.0 % 02/23/21 16:43 O2 Delivery Device Vent 02/26/21 04:50 FiO2 45.0 % 02/26/21 04:50 Tidal Volume 0.40 02/26/21 04:50 PEEP 10.0 cmH20 02/26/21 04:50 Specimen Drawn By pgjaelyn 02/23/21 16:43 Predatory Animal Hunter ID Hinja 02/26/21 04:50 Sodium 138 mmol/L (136-1 45) 03/07/21 06:30 Potassium 3.5 mmol/L (3.5-5 .1) 03/07/21 06:30 Chloride 108 mmol/L (98-10 7) H 03/07/21 06:30 Carbon Dioxide 21 mmol/L (22-29) L 03/07/21 06:30 Anion Gap 12.5 (5-19) 03/07/21 06:30 BUN 5 mg/dL (6-20) L 03/07/21 06:30 Creatinine 0.3 mg/dL (0.5-0. 9) L 03/07/21 06:30 GFR Calculation 246.4 mL/min (90- 130) H 03/07/21 06:30 Glucose 135 mg/dL (65-115 ) H 03/07/21 06:30 POC Glucose 125 mg/dL (70-110 ) H 03/07/21 06:33 Estimat Average Gl ucose 154 02/24/21 06:13 Hemoglobin A1c 7.0 % (4.0-6.0) H 02/24/21 06:13 Calculated Osmolal ity 285 mOsm/kg (285- 295) 03/07/21 06:30 Lactic Acid 2.1 mmol/L (0.5-2 .2) 02/22/21 02:40 Lactic Acid (Sepsi s) 2.2 mmol/L (0.5-2 .2) 02/22/21 13:45 Lactate 2.5 mmol/L (0.5-2 .2) H 02/21/21 00:55 Calcium 7.8 mg/dL (8.5-10 .5) L 03/07/21 06:30 Magnesium 2.1 mg/dL (1.7-2. 3) 03/07/21 06:30 Iron 29 ug/dL (37-145) L 02/23/21 09:05 TIBC 225 mcg/dl 02/23/21 09:05 % Saturation 12.8 % (20-50) L 02/23/21 09:05 Unsat Iron Binding 196 ug/dL (112-34 7) 02/23/21 09:05 Total Bilirubin 1.3 mg/dL (0.15-1 .2) H 03/06/21 04:55 Direct Bilirubin Cancelled 02/23/21 09:05 AST 48 U/L (0-32) H 03/06/21 04:55 ALT 13 U/L (0-33) 03/06/21 04:55 Alkaline Phosphata se 173 IU/L (35-105) H 03/06/21 04:55 Ammonia 79 umol/L (11-51) H 03/04/21 05:24 Lactate Dehydrogen ase 253 U/L (135-214) H 02/25/21 04:37 C-Reactive Protein 160.6 mg/L (0.0-4 .9) H 02/23/21 09:05 C-Reactive Protein Cancelled 02/23/21 09:05 NT-Pro-B Natriuret Pep 940 pg/mL (0-125) H 02/28/21 03:30 Total Protein 6.2 g/dL (6.6-8.7 ) L 03/06/21 04:55 Albumin 2.4 g/dL (3.5-5.2 ) L 03/06/21 04:55 Globulin 3.8 g/dL (1.3-4.6 ) 03/06/21 04:55 Procalcitonin 0.73 ng/mL (0-0.5 ) H 02/27/21 03:40 TSH 0.78 uIU/mL (0.27 -4.20) 02/23/21 09:05 Urine Color Yellow (Yellow) 02/21/21 02:04 Urine Appearance Clear (CLEAR) 02/21/21 02:04 Urine pH 6 (5-7) 02/21/21 02:04 Ur Specific Gravit y 1.015 (1.005-1.0 30) 02/21/21 02:04 Urine Protein Neg (Negative) 02/21/21 02:04 Urine Glucose (UA) Norm (Normal) 02/21/21 02:04 Urine Ketones Negative (Negati ve) 02/21/21 02:04 Urine Blood Neg (Negative) 02/21/21 02:04 Urine Nitrate Negative (Negati ve) 02/21/21 02:04 Urine Bilirubin 1+ (Negative) H 02/21/21 02:04 Urine Urobilinogen 8 mg/dL (Negative ) H 02/21/21 02:04 Ur Leukocyte Jody ase Negative (Negati ve) 02/21/21 02:04 RSV Nasal Swab Not detected (No t Detected) 02/24/21 Unknown RSV Nasal Swab Int Cntl Not detected (No t Detected) 02/24/21 Unknown Vancomycin Trough 4.5 ug/mL (10-15) L 02/25/21 07:25 Random Vancomycin 12.1 ug/mL (20.0- 40.0) L 02/24/21 06:13 Salicylates < 0.3 mg/dL (3-10 ) L 02/21/21 00:55 Acetaminophen < 5.0 ug/mL (10-3 0) L 02/21/21 00:55 Ethyl Alcohol < 10 mg/dL (0-10) 02/21/21 00:55 Adenovirus (PCR) Not detected (No t Detected) 02/24/21 Unknown Nasal/Oral COVID-1 9 PCR Not detected 02/24/21 14:00 Hep Bs Antigen Non-reactive (No nreactive) 03/03/21 04:40 Hep Bs Antibody 242.6 (11.5-1000 ) 03/03/21 04:40 Hepatitis C Antibo dy Reactive (Nonrea ctive) H 03/03/21 04:40 HCV RNA (PCR) IUs/ ml <1.18 not detecte d Log IU/mL (NOT D ETECTED) 02/24/21 06:13 HCV RNA (PCR) IU l og10 <15 not detected IU/mL (NOT DETECTE D) 02/24/21 06:13 HIV 1&2 Ab & HIV 1 Ag Non-reactive (No n-Reactiv) 03/03/21 04:40 HIV 1&2 Antibody Non-reactive (No n-Reactiv) 03/03/21 04:40 Human Metapneumovi r PCR Not detected (No t Detected) 02/24/21 Unknown Influenza A (RT-PC R) Not detected (No t Detected) 02/24/21 Unknown Influenza A (H1) P CR Not detected (No t Detected) 02/24/21 Unknown Influenza A (H3) P CR Not detected (No t Detected) 02/24/21 Unknown Influenza B (RT-PC R) Not detected (No t Detected) 02/24/21 Unknown Parainfluenzae Typ e 1 Not detected (No t Detected) 02/24/21 Unknown Parainfluenzae Typ e 2 Not detected (No t Detected) 02/24/21 Unknown Parainfluenzae Typ e 3 Not detected (No t Detected) 02/24/21 Unknown RSV Ab Comment see note 02/24/21 Unknown Rhinovirus (PCR) Detected (Not De tected) A 02/24/21 Unknown SARS-CoV-2 Ag (Rap id) Negative (Negati ve) 02/21/21 01:33 [facility] Test Referenc e See comment 02/25/21 11:45 Impressions Chest CTA 02/24/21 09:32 IMPRESSION: 1. No evidence of pulmonary embolus. 2. Shallow inspiration with diffuse bilateral groundglass infiltrates most consistent with COVID 19 pneumonia. 3. Airspace consolidation with compressive atelectasis in the lung bases with air bronchograms. 4. Enteric tube and ETT tube. 5. Fluid distended gallbladder. No gallbladder wall thickening or pericholecystic fluid. Liver Ultrasound 02/25/21 06:00 IMPRESSION: 1. Hepatomegaly with diffuse fatty infiltration and coarse echogenicity. No intrahepatic biliary ductal dilatation. 2. Mild fluid distention of the gallbladder which is otherwise normal in appearance. 3. Normal common bile duct. 4. No hydronephrosis in right kidney. Head CT 02/27/21 16:36 IMPRESSION: No acute intracranial abnormality. Radiation Dose CTDIVOL = (mGy): DLP = 1230.14 (mGy-cm) Chest X-Ray 02/28/21 06:00 IMPRESSION: 1. Satisfactory position of the ET tube, NG tube, and central venous catheter. 2. Subsegmental atelectasis predominantly in the left base. This has improved since previous study. Transesophageal echocardiogram: February 24, 2021: CONCLUSIONS 1-Normal left ventricular cavity size. Normal left ventricular systolic function. Left ventricular ejection fraction is estimated at 60 %. 2-Mildly thickened mitral valve. No mitral valve stenosis. Moderate mitral valve regurgitation. 3-Moderate aortic valve calcification. No aortic valve stenosis. Trace aortic valve regurgitation. 4-Structurally normal pulmonic valve without significant stenosis. There is no pulmonic regurgitation. 5-Structurally normal tricuspid valve without significant stenosis or regurgitation. Pulmonary artery systolic pressure is normal. 6-There is no pericardial effusion. 7-There are no prior echocardiogram studies to compare. Vitals: Last Vital Signs Temp 98.8 F 03/07/21 08:00 Pulse 76 03/07/21 08:00 Resp 20 H 03/07/21 08:00 BP 135/77 03/07/21 08:00 Pulse Ox 95 03/07/21 08:00 Discharge Plan Discharge Patient Disposition: Home Health Service Condition: Stable Prescriptions: New sertraline 50 mg Tablet 25 mg PO DAILY 30 Days Qty: 15 RF: 0 pregabalin 25 mg Capsule 25 mg PO BID 30 Days Qty: 60 RF: 0 doxycycline hyclate 100 mg capsule 100 mg PO BID 14 Days Qty: 28 RF: 0 Continued (DME) blood sugar diagnostic Strip See Rx Instructions .ROUTE .MEDSUPPLY Qty: 100 RF: 5 lactulose [Generlac] 10 gram/15 mL solution See Rx Instructions .ROUTE .COMPLEX Qty: 630 RF: 0 ondansetron HCl [Zofran] 4 mg tablet 4 mg PO Q6H PRN (Reason: nausea and vomiting) Qty: 15 RF: 0 furosemide 20 mg tablet 20 mg PO BID RF: 0 insulin aspart U-100 [Novolog Flexpen U-100 Insulin] 100 unit/mL (3 mL) insulin pen 10 unit SUBCUT TID RF: 0 Lantus Solostar U-100 Insulin 100 unit/mL (3 mL) insulin pen 20 unit SUBCUT QAM RF: 0 levothyroxine 100 mcg tablet 100 mcg PO DAILY RF: 0 propranolol 40 mg tablet 40 mg PO BID RF: 0 prenat.vits,andrew,tsz-fzqu-knngw Tablet 1 tab PO DAILY RF: 0 Changed fluoxetine 40 mg capsule 40 mg PO DAILY Qty: 0 RF: 0 buprenorphine-naloxone 8-2 mg film 1 film sublingual BID Qty: 0 RF: 0 Discontinued ciprofloxacin HCl [Cipro] 500 mg tablet 500 mg PO BID Qty: 14 RF: 0 Discharge Orders: Discharge Order (Routine); Ordered 03/07/21 Ordered By: Bob Glasgow Referrals: Dr Frias (Infectious Disease Specialist) [Other] - 03/17/21 9:30 am (This appointment will be by Telehealth) Manny Moreno MD [Physician] - 7-10 days (Hepatitis C) MADAN Mayfield FNP [Primary Care Provider] - 4-7 days Discharge Diet: Advance as tolerated, Cardiac and Diabetic Discharge Activity: Resume usual activity Patient Instructions: Opioid Safety Activity Restrictions/Additional Instructions: Please follow-up with a primary care provider within next 1 to 3 days. Please follow-up with Dr. Moreno within next 1 week for further management of hepatitis C. Patient is also advised to take doxycycline which is the antibiotics for next 2 weeks. Patient has been counseled in detail to avoid any further polysubstance abuse. Patient is also advised to decrease the use of Suboxone to once or twice a day as when patient was getting 3 times a day which is an outpatient dose she was becoming hypothermic and bradycardic. Patient is to follow-up with her [facility] pain clinic for further pain meds. Discharge Attestations Time Spent in Discharge Care*: greater than 30 min Specific Discharge Activities: educating patient, educating and/or supporting family/caregiver, discussing with pcp/other providers, discussing with case packer/social workers/dc planners, documenting/other paperwork and evaluating patient/reviewing data Status at Discharge: Cognitive status at discharge: cognitively intact , Behavioral status at discharge: cooperative , Functional status at discharge: independent ambulation Overall status at discharge: patient is progressing back to baseline Quality Metrics Clinical Quality Measures During this hospital stay, did patient experience: None Coding Level of Care Code Acute Chg FW DC note Diagnoses Septicemia A41.9 Polysubstance abuse F19.10 Respiratory failure with hypoxia J96.01 Chronicity: acute Pneumonia J15.211 Laterality: bilateral Lung location: unspecified part of lung Pneumonia type: due to methicillin-sensitive Staphylococcus aureus (MSSA)
[2021-03-07 10:42] VITALS: BP 135/77; PULSE 76; RESP 20; TEMP 37.1; O2SAT 95
[2021-03-07 11:11] VITALS: BP 135/71; PULSE 70; RESP 15; TEMP 36.4; O2SAT 96
[2021-03-07 11:42] LABS: Glucose Point of Care 159 mg/dL (70-110)
--- NOTE | 2021-03-07 11:43 | PC.NURSE ---
Discharge Note Patient discharged to home via wheel chair to private vehicle accompanied by this nurse. Discharge instructions reviewed with patient and/or guest relations representative. Mobile pharmacy medications and/or prescriptions provided. Belongings/home medications returned.
--- NOTE | 2021-03-13 08:19 | PC.SOCIAL ---
Called patient multiple times for discharge follow up call. Unable to reach patient. patient doesn't have voicemail set up.
--- NOTE | 2021-03-21 15:08 | PC.SOCIAL ---
Mother of patient called today to inquire about why patient has not received HH's explained that patient was not set up w/ HH @ discharge. Explained to patients mother that some of the companies were unable to accept due to staffing issues and some of them were not affiliated w/ patients insurance. Pt's mother provided w/ [facility]-set up number @ [phone] and directed to call if she feels that her daughter would need [facility]. Pt's mother took the number.
== END 2021-03-07 14:17 | disposition home or self-care (01) | DRG 207 ==
LOC: ER 03:18 → MEDSURG 04:50 → ICU 02-22 06:32 → MEDSURG 03-02 10:41
PROVIDERS: Internal Medicine; Internal Medicine Pulmonary Disease; Student in an Organized Health Care Education/Training Program; Admitting Provider Hospitalist; Emergency Provider Emergency Medicine; PCP Nurse Practitioner Family; Visit Provider Student in an Organized Health Care Education/Training Program
DX: J15.211 Pneumonia due to Methicillin susceptible Staphylococcus aureus (principal); A41.9 Sepsis, unspecified organism; G93.41 Metabolic encephalopathy; J96.01 Acute respiratory failure with hypoxia; R65.20 Severe sepsis without septic shock; F11.20 Opioid dependence, uncomplicated; N39.0 Urinary tract infection, site not specified; B37.0 Candidal stomatitis; E87.0 Hyperosmolality and hypernatremia; F15.13 Other stimulant abuse with withdrawal; J69.0 Pneumonitis due to inhalation of food and vomit; I50.9 Heart failure, unspecified; I11.0 Hypertensive heart disease with heart failure; E11.42 Type 2 diabetes mellitus with diabetic polyneuropathy; B18.2 Chronic viral hepatitis C; E03.9 Hypothyroidism, unspecified; F17.210 Nicotine dependence, cigarettes, uncomplicated; F15.10 Other stimulant abuse, uncomplicated; F10.10 Alcohol abuse, uncomplicated; F12.90 Cannabis use, unspecified, uncomplicated; Z79.4 Long term (current) use of insulin; F43.23 Adjustment disorder with mixed anxiety and depressed mood; D69.59 Other secondary thrombocytopenia; D64.9 Anemia, unspecified; B96.20 Unspecified Escherichia coli [E. coli] as the cause of diseases classified elsewhere; E87.6 Hypokalemia
CPT/HCPCS: 36415; 36416; 36592; 36600; 51702; 70450; 71045; 71275; 76705; 80048; 80051; 80053; 80202; 80307; 81003; 82140; 82330; 82803; 82805; 82810; 82962; 83010; 83036; 83540; 83550; 83605; 83615; 83735; 83880; 84145; 84443; 85025; 85378; 85384; 85610; 85651; 85730; 86140; 86403; 86706; 86803; 87040; 87070; 87077; 87106; 87186; 87205; 87340; 87426; 87449; 87522; 87635; 87641; 87806; 92610; 93005; 93306; 93312; 93320; 93325; 94003; 94640; 94660; 94799; 96365; 96367; 96372; 97110; 97116; 97161; 97167; 97530; 97535; 99285; J0282; J0456; J0690; J0696; J1170; J1200; J1644; J1650; J1815 ×2; J1940; J1956; J2060; J2250; J2270; J2405; J2543; J2704; J2920; J2930; J3010; J3370; J3475; J3480; J3490; J7030; J7050; J7626; J7799; Q9967; S0030

== ENCOUNTER 2021-03-26 02:54 | Inpatient (IN) | payer MEDICAID, SELFPAY ==
[2021-03-26] VITALS (12 sets, daily range): BP systolic 135–177; BP diastolic 82–103; PULSE 61–118; RESP 15–26; TEMP 36.6–36.9; O2SAT 93–97; BMI 33.2; BMI 34.0
--- NOTE | 2021-03-26 04:31 | XRR_ITS ---
PROCEDURE INFORMATION: Exam: XR Chest Exam date and time: 03/26/2021 4:31 AM Age: 40 years old Clinical indication: Chest pressure; Patient HX: Chest pain with bilateral shoulder pain. ; Additional info: Cp TECHNIQUE: Imaging protocol: XR of the chest. Views: 1 view. COMPARISON: CR (CHEST, ) 02/28/2021 5:54 AM FINDINGS: Lungs: Linear atelectasis or scar at the left lung base. There are low lung volumes. Linear atelectasis or scar in the right perihilar region. Pleural spaces: Unremarkable. No pleural effusion. No pneumothorax. Heart/Mediastinum: Unremarkable. No cardiomegaly. Bones/joints: Unremarkable. XR/XR chest 1V portable [id number] IMPRESSION: No cause for acute pain is identified.
--- NOTE | 2021-03-26 04:55 | CT_ITS ---
WS: [id number] CT HEAD NONCONTRAST HISTORY: Headache and confusion. TECHNIQUE: Contiguous axial imaging performed through the brain in 2.5 mm imaging. Bone and soft tiss ue windows. Sagittal and coronal reformats reviewed. All CT scans at [facility] use at ast one of these dose optimization techniques: automated exposure control; mA and/or kV adjustment pe r patient size (includes targeted exams where dose is matched to clinical indication); or iterative r econstruction. DLP: 987.44 mGy.cm COMPARISON: 02/28/2021 No acute intracranial hemorrhage, midline shift or mass effect. No atrophy or prior infarcts or herniation. Ventricles: Normal size with no hydrocephalus. Paranasal sinuses: As visualized are clear. Mastoid air cells: Well pneumatized. Calvarium and scalp: Skull is intact with no soft tissue edema or swelling. CT/CT head wo con* [id number] IMPRESSION: Negative head CT.
[2021-03-26 05:11] LABS: Basophils % 0.3 %; Eosinophils # 0.1 10^3/uL (0.0-0.8); Eosinophils % 0.4 %; Hematocrit 30.4 % (37.0-47.0); Hemoglobin 9.3 g/dL (11.5-15.3); Lymphocytes # 2.2 10^3/uL (0.8-4.8); Lymphocytes % 18.5 %; Mean Corpuscular HGB Conc 30.6 g/dL (30.0-36.0); Mean Corpuscular Hemoglobin 24.7 pg (28.0-34.0); Mean Corpuscular Volume 80.6 fl (81-99); Mean Platelet Volume 8.9 fL (7.4-10.4); Monocytes # 1.9 10^3/uL (0.2-0.9); Monocytes % 15.9 %; Neutrophils # 7.71 10^3/uL (1.8-7.7); Neutrophils % 64.4 %; Nucleated Red Blood Cells % 0 %; Platelet Count 148 10^3/cmm (130-400); Red Blood Count 3.77 10^6/uL (4.1-5.3); Red Cell Distribution Width 24.7 % (12.1-15.1)
[2021-03-26] MEDS: ondansetron 2 mg/ML SDV 2 mL 4 MG IVP (05:11)
[2021-03-26] MEDS: sodium chloride 0.9% 1,000 ML 999 ML IV (05:11)
[2021-03-26] MEDS: HYDROmorphone 1 mg/mL INJ 1 mL IVP ×3 (05:13→07:31)
[2021-03-26 05:30] LABS: Alanine Aminotransferase 20 U/L (0-33); Albumin Level 2.4 g/dL (3.5-5.2); Alkaline Phosphatase 306 IU/L (35-105); Anion Gap 14.8 (5-19); Aspartate Amino Transferase 38 U/L (0-32); Blood Urea Nitrogen 10 mg/dL (6-20); Carbon Dioxide 17 mmol/L (22-29); Chloride 108 mmol/L (98-107); Globulin 6.3 g/dL (1.3-4.6); Glomerular Filtration Rate 246.4 mL/min (90-130); Glucose 166 mg/dL (65-115); Osmolality Calculated 285 mOsm/kg (285-295); Potassium 3.8 mmol/L (3.5-5.1); Sodium 136 mmol/L (136-145); Total Bilirubin 1.1 mg/dL (0.15-1.2); Total Protein 8.7 g/dL (6.6-8.7)
--- NOTE | 2021-03-26 05:43 | ED_ITS ---
Documented by User: Farzaneh Main MD 03/26/21 05:44 HPI - Back Pain/Injury General: Chief Complaint: Back Pain/Injury Stated Complaint: Neck pain, back pain, shoulder pain Time Seen by Provider: 03/26/21 04:27 History of Present Illness: Associated symptoms: Deny abdominal pain, chills, dysuria, fever(s), nausea or vomiting Review of Systems Const: Denies: fever(s), chills, body aches or change in appetite Eyes: Denies: blurry vision or eye discomfort ENMT: Denies: throat pain or dental pain Card: Denies: chest pain Resp: Denies: dyspnea GI: Denies: abdominal pain, nausea, vomiting or diarrhea : Denies: dysuria Musc: Reports: back pain Skin/Breast: Denies: rash Neuro: Denies: headache(s) Psych: Denies: depression Patricio/Lymph: Denies: easy bruising All/Imm: Denies: urticaria PFSH ED PFSH: Medical History Abdominal pain Alcohol use disorder Anxiety with depression Cholelithiasis Congestive heart failure Cystitis Diabetes mellitus, type II Drug-induced psychotic disorder FH: breast cancer in first degree relative H/O chronic hepatitis Hepatic encephalopathy Hypertension Hypothyroid Metabolic encephalopathy Methamphetamine abuse Opiate dependence 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 Pneumonia Polysubstance abuse Respiratory failure with hypoxia Sepsis Vitamin D deficiency Yeast dermatitis Surgical History History of Social History Smoking and tobacco status: current every day smoker Second hand smoke exposure: No Smoking risk assessment/counseling performed?: No Alcohol intake: never Desire information about alcohol rehabilitation?: No Counseling given: No Desire information about substance/drug rehabilitation?: No Counseling given: No Physical Exam Const: COMMON NORMALS: no acute distress, patient oriented x3 and healthy appearing HENMT: COMMON NORMALS: normocephalic and atraumatic HEAD & SCALP: normocephalic and atraumatic Eye: COMMON NORMALS: Equal, round and reactive pupils present and EOMs intact bilaterally PUPIL: Yes Equal, round and reactive pupils present Neck/C-Spine: COMMON NORMALS: full ROM, supple and no meningeal signs Chest: COMMONS NORMALS: normal inspection of the chest and normal palpation of entire chest wall Resp: COMMON NORMALS: normal respiratory effort, No retractions, No use of accessory muscles and clear to auscultation bilaterally AUSCULTATION: clear to auscultation bilaterally Cardio: COMMON NORMALS: regular rate, regular rhythm and No murmurs present (Cardio) RATE: regular rate RHYTHM: regular rhythm GI: COMMON NORMALS: Normal to inspection, nondistended, normoactive bowel sounds present, Soft to palpation, non-tender and no masses PALPATION: Yes Soft to palpation Extremity: COMMON NORMALS: normal to inspection and full ROM Neuro: COMMON NORMALS: patient oriented x3, moves all extremities and no focal motor deficits MENINGEAL SIGNS: Yes no meningeal signs Psych: COMMON NORMALS: mental status grossly normal, Normal thought process present and cooperative THOUGHT PROCESS: Normal thought process present Skin: COMMON NORMALS: no rashes or lesions noted and no wounds GENERAL SKIN EXAM: no rashes or lesions noted Course Vital Signs: Vital signs: Vital Signs Temperature 98.5 F 03/26/21 03:05 Pulse Rate 84 03/26/21 09:00 Respiratory Rate 15 03/26/21 09:00 Blood Pressure 166/92 03/26/21 09:00 Pulse Oximetry 93 03/26/21 09:00 MDM - Back Pain/Injury Lab Data: Labs: Lab Results 03/26/21 03/26/21 03/26/21 Range/Units 04:53 04:53 04:53 WBC 12.0 H (4.0-10.0) 10^3/ uL RBC 3.77 L (4.1-5.3) 10^6/u L Hgb 9.3 L (11.5-15.3) g/dL Hct 30.4 L (37.0-47.0) % MCV 80.6 L (81-99) fl MCH 24.7 L (28.0-34.0) pg MCHC 30.6 (30.0-36.0) g/dL RDW 24.7 H (12.1-15.1) % Plt Count 148 (130-400) 10^3/c mm MPV 8.9 (7.4-10.4) fL Neut % (Auto) 64.4 % Lymph % (Auto) 18.5 % Cassia % (Auto) 15.9 % Eos % (Auto) 0.4 % Baso % (Auto) 0.3 % Neut # (Auto) 7.71 H (1.8-7.7) 10^3/u L Lymph # (Auto) 2.2 (0.8-4.8) 10^3/u L Cassia # (Auto) 1.9 H (0.2-0.9) 10^3/u L Eos # (Auto) 0.1 (0.0-0.8) 10^3/u L Baso # (Auto) 0.0 (0.0-0.1) 10^3/u L Nucleated RBC % (a uto) 0 % Nucleated RBCs # 0.0 /100WBC ESR 105 H (0-15) mm/hr Sodium 136 (136-145) mmol/L Potassium 3.8 (3.5-5.1) mmol/L Chloride 108 H (98-107) mmol/L Carbon Dioxide 17 L (22-29) mmol/L Anion Gap 14.8 (5-19) BUN 10 (6-20) mg/dL Creatinine 0.3 L (0.5-0.9) mg/dL GFR Calculation 246.4 H (90-130) mL/min Glucose 166 H (65-115) mg/dL Calculated Osmolal ity 285 (285-295) mOsm/k g Lactate (0.5-2.2) mmol/L Calcium 9.0 (8.5-10.5) mg/dL Total Bilirubin 1.1 (0.15-1.2) mg/dL AST 38 H (0-32) U/L ALT 20 (0-33) U/L Alkaline Phosphata se 306 H (35-105) IU/L C-Reactive Protein (0.0-4.9) mg/L Total Protein 8.7 (6.6-8.7) g/dL Albumin 2.4 L (3.5-5.2) g/dL Globulin 6.3 H (1.3-4.6) g/dL Urine Color (Yellow) Urine Appearance (CLEAR) Urine pH (5-7) Ur Specific Gravit y (1.005-1.030) Urine Protein (Negative) Urine Glucose (UA) (Normal) Urine Ketones (Negative) Urine Blood (Negative) Urine Nitrate (Negative) Urine Bilirubin (Negative) Urine Urobilinogen (Negative) mg/dL Ur Leukocyte Jody ase (Negative) Urine Opiates Scre en (Negative) ng/mL Ur Barbiturates Sc reen (Negative) ng/mL Ur Phencyclidine S crn (Negative) ng/mL Ur Amphetamines Sc reen (Negative) ng/mL U Benzodiazepines Scrn (Negative) ng/mL Urine Cocaine Scre en (Negative) ng/mL U Marijuana (THC) Screen (Negative) ng/mL 03/26/21 03/26/21 03/26/21 Range/Units 04:53 05:46 05:46 WBC (4.0-10.0) 10^3/ uL RBC (4.1-5.3) 10^6/u L Hgb (11.5-15.3) g/dL Hct (37.0-47.0) % MCV (81-99) fl MCH (28.0-34.0) pg MCHC (30.0-36.0) g/dL RDW (12.1-15.1) % Plt Count (130-400) 10^3/c mm MPV (7.4-10.4) fL Neut % (Auto) % Lymph % (Auto) % Cassia % (Auto) % Eos % (Auto) % Baso % (Auto) % Neut # (Auto) (1.8-7.7) 10^3/u L Lymph # (Auto) (0.8-4.8) 10^3/u L Cassia # (Auto) (0.2-0.9) 10^3/u L Eos # (Auto) (0.0-0.8) 10^3/u L Baso # (Auto) (0.0-0.1) 10^3/u L Nucleated RBC % (a uto) % Nucleated RBCs # /100WBC ESR (0-15) mm/hr Sodium (136-145) mmol/L Potassium (3.5-5.1) mmol/L Chloride (98-107) mmol/L Carbon Dioxide (22-29) mmol/L Anion Gap (5-19) BUN (6-20) mg/dL Creatinine (0.5-0.9) mg/dL GFR Calculation (90-130) mL/min Glucose (65-115) mg/dL Calculated Osmolal ity (285-295) mOsm/k g Lactate (0.5-2.2) mmol/L Calcium (8.5-10.5) mg/dL Total Bilirubin (0.15-1.2) mg/dL AST (0-32) U/L ALT (0-33) U/L Alkaline Phosphata se (35-105) IU/L C-Reactive Protein 176.0 H (0.0-4.9) mg/L Total Protein (6.6-8.7) g/dL Albumin (3.5-5.2) g/dL Globulin (1.3-4.6) g/dL Urine Color Mary (Yellow) Urine Appearance Clear (CLEAR) Urine pH 6.5 (5-7) Ur Specific Gravit y 1.010 (1.005-1.030) Urine Protein Neg (Negative) Urine Glucose (UA) Norm (Normal) Urine Ketones Negative (Negative) Urine Blood Neg (Negative) Urine Nitrate Negative (Negative) Urine Bilirubin 1+ H (Negative) Urine Urobilinogen 4 H (Negative) mg/dL Ur Leukocyte Jody ase Negative (Negative) Urine Opiates Scre en Positive H (Negative) ng/mL Ur Barbiturates Sc reen Negative (Negative) ng/mL Ur Phencyclidine S crn Negative (Negative) ng/mL Ur Amphetamines Sc reen Negative (Negative) ng/mL U Benzodiazepines Scrn Negative (Negative) ng/mL Urine Cocaine Scre en Negative (Negative) ng/mL U Marijuana (THC) Screen Positive H (Negative) ng/mL 03/26/ Range/Units 08:25 WBC (4.0-10.0) 10^3/ uL RBC (4.1-5.3) 10^6/u L Hgb (11.5-15.3) g/dL Hct (37.0-47.0) % MCV (81-99) fl MCH (28.0-34.0) pg MCHC (30.0-36.0) g/dL RDW (12.1-15.1) % Plt Count (130-400) 10^3/c mm MPV (7.4-10.4) fL Neut % (Auto) % Lymph % (Auto) % Cassia % (Auto) % Eos % (Auto) % Baso % (Auto) % Neut # (Auto) (1.8-7.7) 10^3/u L Lymph # (Auto) (0.8-4.8) 10^3/u L Cassia # (Auto) (0.2-0.9) 10^3/u L Eos # (Auto) (0.0-0.8) 10^3/u L Baso # (Auto) (0.0-0.1) 10^3/u L Nucleated RBC % (a uto) % Nucleated RBCs # /100WBC ESR (0-15) mm/hr Sodium (136-145) mmol/L Potassium (3.5-5.1) mmol/L Chloride (98-107) mmol/L Carbon Dioxide (22-29) mmol/L Anion Gap (5-19) BUN (6-20) mg/dL Creatinine (0.5-0.9) mg/dL GFR Calculation (90-130) mL/min Glucose (65-115) mg/dL Calculated Osmolal ity (285-295) mOsm/k g Lactate 1.5 (0.5-2.2) mmol/L Calcium (8.5-10.5) mg/dL Total Bilirubin (0.15-1.2) mg/dL AST (0-32) U/L ALT (0-33) U/L Alkaline Phosphata se (35-105) IU/L C-Reactive Protein (0.0-4.9) mg/L Total Protein (6.6-8.7) g/dL Albumin (3.5-5.2) g/dL Globulin (1.3-4.6) g/dL Urine Color (Yellow) Urine Appearance (CLEAR) Urine pH (5-7) Ur Specific Gravit y (1.005-1.030) Urine Protein (Negative) Urine Glucose (UA) (Normal) Urine Ketones (Negative) Urine Blood (Negative) Urine Nitrate (Negative) Urine Bilirubin (Negative) Urine Urobilinogen (Negative) mg/dL Ur Leukocyte Jody ase (Negative) Urine Opiates Scre en (Negative) ng/mL Ur Barbiturates Sc reen (Negative) ng/mL Ur Phencyclidine S crn (Negative) ng/mL Ur Amphetamines Sc reen (Negative) ng/mL U Benzodiazepines Scrn (Negative) ng/mL Urine Cocaine Scre en (Negative) ng/mL U Marijuana (THC) Screen (Negative) ng/mL Discharge Plan Discharge Patient Disposition: Admitted As Inpatient Clinical Impression: Acute proctitis Condition: Stable Coding Level of Care Code ED Early Childhood Associate Teacher for Chg Fwd Exam Comprehensive Documented by User: Coty Howell MD 03/26/21 12:09 HPI - Back Pain/Injury General: Chief Complaint: Back Pain/Injury Stated Complaint: Neck pain, back pain, shoulder pain Time Seen by Provider: 03/26/21 04:27 [facility] ED PFSH: Medical History Abdominal pain Alcohol use disorder Anxiety with depression Cholelithiasis Congestive heart failure Cystitis Diabetes mellitus, type II Drug-induced psychotic disorder FH: breast cancer in first degree relative H/O chronic hepatitis Hepatic encephalopathy Hypertension Hypothyroid Metabolic encephalopathy Methamphetamine abuse Opiate dependence 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 Pneumonia Polysubstance abuse Respiratory failure with hypoxia Sepsis Vitamin D deficiency Yeast dermatitis Surgical History History of Social History Smoking and tobacco status: current every day smoker Second hand smoke exposure: No Smoking risk assessment/counseling performed?: No Alcohol intake: never Desire information about alcohol rehabilitation?: No Counseling given: No Desire information about substance/drug rehabilitation?: No Counseling given: No Course Vital Signs: Vital signs: Vital Signs Temperature 98.5 F 03/26/21 03:05 Pulse Rate 84 03/26/21 09:00 Respiratory Rate 15 03/26/21 09:00 Blood Pressure 166/92 03/26/21 09:00 Pulse Oximetry 93 03/26/21 09:00 MDM - Back Pain/Injury Lab Data: Labs: Lab Results 03/26/21 03/26/21 03/26/21 Range/Units 04:53 04:53 04:53 WBC 12.0 H (4.0-10.0) 10^3/ uL RBC 3.77 L (4.1-5.3) 10^6/u L Hgb 9.3 L (11.5-15.3) g/dL Hct 30.4 L (37.0-47.0) % MCV 80.6 L (81-99) fl MCH 24.7 L (28.0-34.0) pg MCHC 30.6 (30.0-36.0) g/dL RDW 24.7 H (12.1-15.1) % Plt Count 148 (130-400) 10^3/c mm MPV 8.9 (7.4-10.4) fL Neut % (Auto) 64.4 % Lymph % (Auto) 18.5 % Cassia % (Auto) 15.9 % Eos % (Auto) 0.4 % Baso % (Auto) 0.3 % Neut # (Auto) 7.71 H (1.8-7.7) 10^3/u L Lymph # (Auto) 2.2 (0.8-4.8) 10^3/u L Cassia # (Auto) 1.9 H (0.2-0.9) 10^3/u L Eos # (Auto) 0.1 (0.0-0.8) 10^3/u L Baso # (Auto) 0.0 (0.0-0.1) 10^3/u L Nucleated RBC % (a uto) 0 % Nucleated RBCs # 0.0 /100WBC ESR 105 H (0-15) mm/hr Sodium 136 (136-145) mmol/L Potassium 3.8 (3.5-5.1) mmol/L Chloride 108 H (98-107) mmol/L Carbon Dioxide 17 L (22-29) mmol/L Anion Gap 14.8 (5-19) BUN 10 (6-20) mg/dL Creatinine 0.3 L (0.5-0.9) mg/dL GFR Calculation 246.4 H (90-130) mL/min Glucose 166 H (65-115) mg/dL Calculated Osmolal ity 285 (285-295) mOsm/k g Lactate (0.5-2.2) mmol/L Calcium 9.0 (8.5-10.5) mg/dL Total Bilirubin 1.1 (0.15-1.2) mg/dL AST 38 H (0-32) U/L ALT 20 (0-33) U/L Alkaline Phosphata se 306 H (35-105) IU/L C-Reactive Protein (0.0-4.9) mg/L Total Protein 8.7 (6.6-8.7) g/dL Albumin 2.4 L (3.5-5.2) g/dL Globulin 6.3 H (1.3-4.6) g/dL Urine Color (Yellow) Urine Appearance (CLEAR) Urine pH (5-7) Ur Specific Gravit y (1.005-1.030) Urine Protein (Negative) Urine Glucose (UA) (Normal) Urine Ketones (Negative) Urine Blood (Negative) Urine Nitrate (Negative) Urine Bilirubin (Negative) Urine Urobilinogen (Negative) mg/dL Ur Leukocyte Jody ase (Negative) Urine Opiates Scre en (Negative) ng/mL Ur Barbiturates Sc reen (Negative) ng/mL Ur Phencyclidine S crn (Negative) ng/mL Ur Amphetamines Sc reen (Negative) ng/mL U Benzodiazepines Scrn (Negative) ng/mL Urine Cocaine Scre en (Negative) ng/mL U Marijuana (THC) Screen (Negative) ng/mL 03/26/21 03/26/21 03/26/21 Range/Units 04:53 05:46 05:46 WBC (4.0-10.0) 10^3/ uL RBC (4.1-5.3) 10^6/u L Hgb (11.5-15.3) g/dL Hct (37.0-47.0) % MCV (81-99) fl MCH (28.0-34.0) pg MCHC (30.0-36.0) g/dL RDW (12.1-15.1) % Plt Count (130-400) 10^3/c mm MPV (7.4-10.4) fL Neut % (Auto) % Lymph % (Auto) % Cassia % (Auto) % Eos % (Auto) % Baso % (Auto) % Neut # (Auto) (1.8-7.7) 10^3/u L Lymph # (Auto) (0.8-4.8) 10^3/u L Cassia # (Auto) (0.2-0.9) 10^3/u L Eos # (Auto) (0.0-0.8) 10^3/u L Baso # (Auto) (0.0-0.1) 10^3/u L Nucleated RBC % (a uto) % Nucleated RBCs # /100WBC ESR (0-15) mm/hr Sodium (136-145) mmol/L Potassium (3.5-5.1) mmol/L Chloride (98-107) mmol/L Carbon Dioxide (22-29) mmol/L Anion Gap (5-19) BUN (6-20) mg/dL Creatinine (0.5-0.9) mg/dL GFR Calculation (90-130) mL/min Glucose (65-115) mg/dL Calculated Osmolal ity (285-295) mOsm/k g Lactate (0.5-2.2) mmol/L Calcium (8.5-10.5) mg/dL Total Bilirubin (0.15-1.2) mg/dL AST (0-32) U/L ALT (0-33) U/L Alkaline Phosphata se (35-105) IU/L C-Reactive Protein 176.0 H (0.0-4.9) mg/L Total Protein (6.6-8.7) g/dL Albumin (3.5-5.2) g/dL Globulin (1.3-4.6) g/dL Urine Color Mary (Yellow) Urine Appearance Clear (CLEAR) Urine pH 6.5 (5-7) Ur Specific Gravit y 1.010 (1.005-1.030) Urine Protein Neg (Negative) Urine Glucose (UA) Norm (Normal) Urine Ketones Negative (Negative) Urine Blood Neg (Negative) Urine Nitrate Negative (Negative) Urine Bilirubin 1+ H (Negative) Urine Urobilinogen 4 H (Negative) mg/dL Ur Leukocyte Jody ase Negative (Negative) Urine Opiates Scre en Positive H (Negative) ng/mL Ur Barbiturates Sc reen Negative (Negative) ng/mL Ur Phencyclidine S crn Negative (Negative) ng/mL Ur Amphetamines Sc reen Negative (Negative) ng/mL U Benzodiazepines Scrn Negative (Negative) ng/mL Urine Cocaine Scre en Negative (Negative) ng/mL U Marijuana (THC) Screen Positive H (Negative) ng/mL 03/26/21 Range/Units 08:25 WBC (4.0-10.0) 10^3/ uL RBC (4.1-5.3) 10^6/u L Hgb (11.5-15.3) g/dL Hct (37.0-47.0) % MCV (81-99) fl MCH (28.0-34.0) pg MCHC (30.0-36.0) g/dL RDW (12.1-15.1) % Plt Count (130-400) 10^3/c mm MPV (7.4-10.4) fL Neut % (Auto) % Lymph % (Auto) % Cassia % (Auto) % Eos % (Auto) % Baso % (Auto) % Neut # (Auto) (1.8-7.7) 10^3/u L Lymph # (Auto) (0.8-4.8) 10^3/u L Cassia # (Auto) (0.2-0.9) 10^3/u L Eos # (Auto) (0.0-0.8) 10^3/u L Baso # (Auto) (0.0-0.1) 10^3/u L Nucleated RBC % (a uto) % Nucleated RBCs # /100WBC ESR (0-15) mm/hr Sodium (136-145) mmol/L Potassium (3.5-5.1) mmol/L Chloride (98-107) mmol/L Carbon Dioxide (22-29) mmol/L Anion Gap (5-19) BUN (6-20) mg/dL Creatinine (0.5-0.9) mg/dL GFR Calculation (90-130) mL/min Glucose (65-115) mg/dL Calculated Osmolal ity (285-295) mOsm/k g Lactate 1.5 (0.5-2.2) mmol/L Calcium (8.5-10.5) mg/dL Total Bilirubin (0.15-1.2) mg/dL AST (0-32) U/L ALT (0-33) U/L Alkaline Phosphata se (35-105) IU/L C-Reactive Protein (0.0-4.9) mg/L Total Protein (6.6-8.7) g/dL Albumin (3.5-5.2) g/dL Globulin (1.3-4.6) g/dL Urine Color (Yellow) Urine Appearance (CLEAR) Urine pH (5-7) Ur Specific Gravit y (1.005-1.030) Urine Protein (Negative) Urine Glucose (UA) (Normal) Urine Ketones (Negative) Urine Blood (Negative) Urine Nitrate (Negative) Urine Bilirubin (Negative) Urine Urobilinogen (Negative) mg/dL Ur Leukocyte Jody ase (Negative) Urine Opiates Scre en (Negative) ng/mL Ur Barbiturates Sc reen (Negative) ng/mL Ur Phencyclidine S crn (Negative) ng/mL Ur Amphetamines Sc reen (Negative) ng/mL U Benzodiazepines Scrn (Negative) ng/mL Urine Cocaine Scre en (Negative) ng/mL U Marijuana (THC) Screen (Negative) ng/mL Discharge Plan Discharge Patient Disposition: Admitted As Inpatient Clinical Impression: Acute proctitis Condition: Stable Coding Level of Care Code ED Early Childhood Associate Teacher for Lorri Fwjaelyn Exam Comprehensive
[2021-03-26 05:49] LABS: Add Urine Microscopic? NO; Charge for UA Resulting for Rev
[2021-03-26 05:54] LABS: Bilirubin Urine 1+ (Negative); Blood Urine Neg (Negative); Glucose Urine UA Norm (Normal); Ketones Urine Negative (Negative); Leukocyte Esterase Urine Negative (Negative); Nitrate Urine Negative (Negative); Protein Urine Neg (Negative); Urine Appearance Clear (CLEAR); Urine Color Amber (Yellow); Urobilinogen Urine 4 mg/dL (Negative); pH Urine 6.5 (5-7)
[2021-03-26 06:01] LABS: Amphetamines Screen Urine Negative (Negative); Barbiturates Screen Urine Negative (Negative); Benzodiazepines Screen Urine Negative (Negative); Cocaine Screen Urine Negative (Negative); Opiate Screen Urine Positive (Negative); PCP Screen Urine Negative (Negative); THC Screen Urine Positive (Negative)
[2021-03-26] MEDS: LORazepam 2 mg/mL INJ 1 mL IVP (06:15)
[2021-03-26] MEDS: lidocaine 1% INJ 20 mL INJECTION (06:24)
--- NOTE | 2021-03-26 07:35 | CT_ITS ---
WS: [id number] CT ABDOMEN AND PELVIS WITH CONTRAST HISTORY: Headache and confusion. Hip pain. TECHNIQUE: Imaging performed of the abdomen and pelvis with IV contrast. Single phase imaging of the abdomen. Coronal and sagittal reformats are submitted. All CT scans at [facility] use at least one of these dose optimization techniques: automated exposure control; mA and/or kV adjustment per patient size (includes targeted exams where dose is matched to clinical indication); or iterativ e reconstruction. IV CONTRAST: Visipaque 320; 95 mL IV. Oral contrast: No DLP: 1981.38 mGy.cm COMPARISON: 02/20/2021 Lower thorax: Dependent opacifications at the lung bases. More than typically seen for atelectasis. T here is also groundglass attenuation. Consider pneumonitis. Mild enlargement of the heart. No hiatal hernia. Liver/biliary system: Mild hepatic steatosis. No mass. Normal portal vein. Gallbladder: Mildly hydropic gallbladder. Gallbladder is slightly enlarged. No adjacent inflammation. Small stones may be present at the gallbladder floor. Gallbladder is similar to prior study from 01/30. Pancreas: Normal size pancreas and pancreatic duct. No adjacent inflammation. Spleen: Enlarged spleen measuring 17.3 cm in length. Splenic vein collaterals are noted. Adrenal glands: Normal. Right kidney: Normal size kidney. No obstruction. 8mm hypodensity mid kidney. Left kidney: Normal. Aorta: Mild atherosclerosis with no aneurysm. Lymphadenopathy: Small subcentimeter retroperitoneal and mesenteric lymph nodes. No adenopathy. Free fluid: None. GI tract: Diffuse fecal retention. No obstructive pattern. The appendix is normal. There is moderate distention of the rectal wall with fecal material. There is also perirectal inflammatory change withi n the fat and small amount of presacral soft tissue thickening. Abdominal wall: Unremarkable abdominal wall. No hernia. Pelvis: No pelvic mass. Uterus and ovaries are normal. Perirectal mild inflammatory changes and a sma ll amount of presacral soft tissue thickening. Boykin catheter present in the urinary bladder. Bones: Degenerative disc disease at L4-5 and L5-S1. There are several foci of air which are new between the L4-5 and L5-S1 vertebral bodies and also in t he paravertebral soft tissues around the L4 and L5 vertebral bodies and along the RIGHT psoas muscle. There is a small amount of air in the epidural space at T12-L1 and in the soft tissues posteriorly a t the L4 level. These foci of air may all be related to a lumbar puncture. Please correlate with rece nt lumbar puncture attempt. CT/CT abdomen pelvis w con* [id number] IMPRESSION: 1. Mildly hydropic gallbladder. Similar to the prior ultrasound of 02/25/2021. 2. Perirectal inflammatory changes and presacral soft tissue thickening. No ma ss identified. Consider proctitis. Rectum is very inferiorly displaced and ther e also may be a rectocele. 3. Numerous foci of air within the disc of L4-5, L5-S1 and around the paravert ebral soft tissues, along the RIGHT psoas, epidural and posterior soft tissues of the lumbar spine. These changes may all be related to lumbar puncture. Pleas e correlate with attempted lumbar puncture. If there was no lumbar puncture dis citis needs to be considered. 4. Hepatosplenomegaly and changes of portal venous hypertension. 5. Mild changes of pneumonitis at the lung bases.
[2021-03-26 07:57] LABS: Erythrocyte Sedimentation Rate 105 mm/hr (0-15)
--- NOTE | 2021-03-26 08:02 | XR_ITS ---
WS: [id number] Exam: XR KUB portable [id number] Date/Time of Exam: 03/26/2021 8:06 AM Reason For Exam: check for metal No bowel obstruction or free air. No radiopaque foreign bodies noted. No sign of organ enlargement. B owel gas pattern is nonacute. Regional bony elements are intact. XR/XR KUB portable [id number] IMPRESSION: 1. No acute abdominal finding. 2. No radiopaque foreign body noted in the abdomen.
--- NOTE | 2021-03-26 08:02 | XR_ITS ---
WS: [id number] Exam: XR chest 1V portable [id number] Date/Time of Exam: 03/26/2021 8:06 AM Reason For Exam: check for metal Comparison 03/26/2021. The lungs are clear and fully expanded. No pleural effusions. Normal cardiomediastinal silhouette. Re gional bony elements appear normal. XR/XR chest 1V portable [id number] IMPRESSION: 1. No acute cardiopulmonary finding. No change.
[2021-03-26] MEDS: diphenhydrAMINE 50 mg/mL SDV 1mL IVP (08:36)
[2021-03-26] MEDS: iodixanol 320 mg/mL 100mL Btl IV (08:58)
[2021-03-26 09:01] LABS: Lactate (Lactic Acid level) 1.5 mmol/L (0.5-2.2)
--- NOTE | 2021-03-26 10:00 | PC.PHAR ---
pt unable to verify medications-pt brought in some medication bottles-notes are made in the pharmacy comments-medications entered are from the med bottles the pt brought in and from previous entered med list-pt states she still takes insulin-last filled 12/17/20
[2021-03-26] MEDS: cefTRIAXone 1,000 MG in sodium chloride 0.9% (plus) 50 ML 100 MG IV (11:05)
[2021-03-26] MEDS: morphine 4 mg/mL SDV 1 mL IVP (11:05)
[2021-03-26] MEDS: metroNIDAZOLE IV 500 MG/100 ML PREMIX 100 MG IV ×2 (11:07→13:19)
--- NOTE | 2021-03-26 11:57 | CTR_ITS ---
PROCEDURE INFORMATION: Exam: CT Cervical Spine with Contrast Exam date and time: 03/26/2021 11:57 AM Age: 40 years old Clinical indication: Other: Possible infection; Additional info: Rule out infection TECHNIQUE: Imaging protocol: Computed tomography images of the cervical spine with contrast. Radiation optimization: All CT scans at this facility use at least one of these dose optimization techniques: automated exposure control; mA and/or kV adjustment per patient size (includes targeted exams where dose is matched to clinical indication); or iterative reconstruction. Contrast material: VISI 320; Contrast volume: 75 ml; Contrast route: INTRAVENOUS (IV); COMPARISON: CR Cervical Spine AP/Lat* [id number] 09/19/2017 11:42 AM RADIATION DOSE METRICS: Total DLP (mGy-cm): 1329.63 FINDINGS: Vertebrae: No acute fracture. Normal alignment. C2-C3: No significant disc protrusion. No severe spinal canal stenosis. No significant neural foraminal narrowing. C3-C4: No significant disc protrusion. No severe spinal canal stenosis. No significant neural foraminal narrowing. C4-C5: No significant disc protrusion. No severe spinal canal stenosis. No significant neural foraminal narrowing. C5-C6: No significant disc protrusion. No severe spinal canal stenosis. No significant neural foraminal narrowing. C6-C7: No significant disc protrusion. No severe spinal canal stenosis. No significant neural foraminal narrowing. C7-T1: No significant disc protrusion. No severe spinal canal stenosis. No significant neural foraminal narrowing. Soft tissues: Unremarkable. Lungs: Right upper lobe airspace opacifications partially visualized suggestive of a pneumonic infiltrate. CT/CT cervical spine w con [id number] IMPRESSION: 1. Negative bony abnormality. 2. Right upper lobe airspace opacifications partially visualized suggestive of a pneumonic infiltrate. Radiation Dose CTDIVOL = (mGy): DLP = 1329.63 (mGy-cm)
--- NOTE | 2021-03-26 11:57 | CTR_ITS ---
PROCEDURE INFORMATION: Exam: CT Thoracic Spine With Contrast Exam date and time: 03/26/2021 11:57 AM Age: 40 years old Clinical indication: Other: Possible infection; Additional info: Rule out infection TECHNIQUE: Imaging protocol: Computed tomography images of the thoracic spine with intravenous contrast. Radiation optimization: All CT scans at this facility use at least one of these dose optimization techniques: automated exposure control; mA and/or kV adjustment per patient size (includes targeted exams where dose is matched to clinical indication); or iterative reconstruction. Contrast material: VISI 320; Contrast volume: 75 ml; Contrast route: INTRAVENOUS (IV); COMPARISON: CT cervical spine w con [id number] 03/26/2021 12:55 PM RADIATION DOSE METRICS: Total DLP (mGy-cm): 2611 FINDINGS: Vertebrae: Punctate amount of air seen in the spinal canal at the level of T12 and L1 may be related to an intervention, please correlate clinically, a gas producing organism from infection is also consideration depending on the clinical scenario. T1-T2: No significant disc protrusion. No severe spinal canal stenosis. No significant neural foraminal narrowing. T2-T3: No significant disc protrusion. No severe spinal canal stenosis. No significant neural foraminal narrowing. T3-T4: No significant disc protrusion. No severe spinal canal stenosis. No significant neural foraminal narrowing. T4-T5: No significant disc protrusion. No severe spinal canal stenosis. No significant neural foraminal narrowing. T5-T6: No significant disc protrusion. No severe spinal canal stenosis. No significant neural foraminal narrowing. T6-T7: No significant disc protrusion. No severe spinal canal stenosis. No significant neural foraminal narrowing. T7-T8: No significant disc protrusion. No severe spinal canal stenosis. No significant neural foraminal narrowing. T8-T9: No significant disc protrusion. No severe spinal canal stenosis. No significant neural foraminal narrowing. T9-T10: No significant disc protrusion. No severe spinal canal stenosis. No significant neural foraminal narrowing. T10-T11: No significant disc protrusion. No severe spinal canal stenosis. No significant neural foraminal narrowing. T11-T12: No significant disc protrusion. No severe spinal canal stenosis. No significant neural foraminal narrowing. T12-L1: No significant disc protrusion. No severe spinal canal stenosis. No significant neural foraminal narrowing. Lungs: Patchy subsegmental atelectasis versus minimal infiltrate. CT/CT thoracic spine w con [id number] IMPRESSION: 1. Negative for acute appearing bony abnormality 2. Patchy subsegmental atelectasis versus minimal infiltrate. 3. Punctate amount of air seen in the spinal canal at the level of T12 and L1 may be related to an intervention, please correlate clinically, a gas producing organism from infection is also consideration depending on the clinical scenario. Radiation Dose CTDIVOL = (mGy): DLP = 2611 (mGy-cm)
[2021-03-26] MEDS: vancomycin 1,000 MG in sodium chloride 0.9% 250 ML 250 MG IV (14:55)
--- NOTE | 2021-03-26 15:50 | PC.NURSE ---
attempted report and was placed on hold for extended period of time
--- NOTE | 2021-03-26 16:31 | PM.HP ---
Providers/Chief Complaint Primary Care Provider: FARHAT Rivera Chief Complaint: Neck pain, back pain, shoulder pain History of Present Illness Gina Jay is a 40 year old female who presented today with chief complaint of worsening neck pain and back pain. Patient is stating that she was evaluated for gallstones in January. Around that time she was intoxicated with alcohol and probably took IV drugs as well. At home she has not been feeling well she lives with her mother and children. For last few days she has not been able to take her Suboxone stating they want to work. She has noticed fever 100.0 which are associated with stiffness of neck and back pain. Back pain got severe to the point she was not able to walk anymore. No recent syncopal event chest pain or vomiting however she is endorsing nausea. When I asked her about IV drug abuse she stated probably a month ago. She gets her Suboxone at [place] from Dr. Biggs. Diagnostics in the ER consistent with sepsis tachypnea tachycardia and leukocytosis she received broad-spectrum antibiotics in the ER, lumbar puncture was attempted by Dr. Main however she did not remain still, ER physician could not get the CSF sample. She is not able to lay still or flat cannot get MRI Air seen at the level of T12-L1 secondary to the attempt Hydropic gallbladder no changes Proctitis perirectal inflammatory changes with rectocele Portal venous hypertension pneumonitis at lung bases Review of Systems Const: Reports: fever(s), chills, body aches and fatigue Eyes: Denies: change in vision ENMT: Denies: throat pain Card: Denies: chest pain Resp: Denies: dyspnea GI: Reports: nausea : Denies: flank pain Musc: Reports: neck pain and back pain Skin/Breast: Reports: lesions Neuro: Reports: headache(s) and difficulty walking Psych: Reports: anxiety Endo: Denies: polyuria Patricio/Lymph: Denies: easy bruising All/Imm: Denies: urticaria Medications/Allergies Home Medications Medication Instructions Recorded Confirmed Last Taken Type blood sugar diagnostic #100 ea 10/14/20 03/26/21 Unknown Rx Lantus Solostar U-100 Insulin 20 unit SUBCUT QAM 02/20/21 03/26/21 Unknown History furosemide 20 mg PO BID 02/20/21 03/26/21 Unknown History insulin aspart U-100 [Novolog See Rx Instructions .ROUTE .COMPLEX 02/20/21 03/26/21 Unknown History Flexpen U-100 Insulin] levothyroxine 100 mcg PO DAILY 02/20/21 03/26/21 Unknown History ondansetron HCl [Zofran] 4 mg PO Q6H PRN #15 tab 02/20/21 03/26/21 Unknown Rx propranolol 40 mg PO BID 02/20/21 03/26/21 Unknown History prenat.vits,andrew,khr-qbph-yvbgw 1 tab PO DAILY 02/21/21 03/26/21 02/20/21 History pregabalin 25 mg PO BID 30 Days #60 cap 03/07/21 03/26/21 Unknown Rx Generlac See Rx Instructions .ROUTE .COMPLEX 03/26/21 03/26/21 Unknown History bisacodyl [Gentlax] 5 mg PO PRN 03/26/21 03/26/21 Unknown History buprenorphine-naloxone [Suboxone] 1 film SUBLINGUAL TID 03/26/21 03/26/21 Unknown History doxycycline hyclate 100 mg PO BID 03/26/21 03/26/21 Unknown History fluoxetine 40 mg PO DAILY 03/26/21 03/26/21 Unknown History sertraline 25 mg PO DAILY 03/26/21 03/26/21 Unknown History Allergies Allergy/AdvReac Type Severity Reaction Status Date / Time iodine Allergy Mild unknown Verified 03/17/21 08:12 Sulfa (Sulfonamide Allergy Mild rash Verified 03/17/21 08:12 Antibiotics) PFSH Acute PFSH: Medical History Abdominal pain Alcohol use disorder Anxiety with depression Cholelithiasis Congestive heart failure Cystitis Diabetes mellitus, type II Drug-induced psychotic disorder FH: breast cancer in first degree relative H/O chronic hepatitis Hepatic encephalopathy Hypertension Hypothyroid Metabolic encephalopathy Methamphetamine abuse Opiate dependence 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 Pneumonia Polysubstance abuse Respiratory failure with hypoxia Sepsis Vitamin D deficiency Yeast dermatitis Surgical History History of Social History Smoking and tobacco status: current every day smoker Second hand smoke exposure: No Smoking risk assessment/counseling performed?: No Alcohol intake: never Desire information about alcohol rehabilitation?: No Counseling given: No Desire information about substance/drug rehabilitation?: No Counseling given: No Vitals/I&O/Wt Last Vital Signs Temp 98.5 F 03/26/21 03:05 Pulse 61 03/26/21 15:00 Resp 18 03/26/21 15:00 BP 154/103 03/26/21 15:00 Pulse Ox 94 03/26/21 15:00 03/26/21 03/26/21 03/26/21 06:59 14:59 22:59 Intake Total 1000 / 1000 Balance 1000 / 1000 Weight last 48 hrs Weight 102.058 kg Physical Exam Narrative: EXAM NARRATIVE: female who was in the ER She is very emotionally labile Crying at the time of evaluation Kerning's sign negative however Brudzinski positive No neurological deficit EOMI, PERRLA No swelling around anterior cervical neck area Multiple skin tattoos with needle connor Boykin catheter draining concentrated urine Abdomen soft She is able to stretch her legs, she does have sensations up to her knees Does not have typical cauda equina presentation No audible stridor or wheezing S1, S2 Appears very anxious Urinary Catheter Management^: Boykin: Cath Placed During This Visit: yes Urinary Catheter Date of Insertion: 03/26/21 Urinary Catheter Time of Insertion: 09:46 Data : 03/26/21 04:53 03/26/21 04:53 Micro: Microbiology 03/26/21 04:43 Blood Culture - Preliminary Blood SPECIMEN COLLECTED 03/26/21 04:53 Blood Culture - Preliminary Blood SPECIMEN COLLECTED A&P Assessment and plan (1) Acute proctitis: Status: Acute (2) Adjustment reaction with anxiety and depression: Status: Acute (3) Polysubstance abuse: Status: Acute (4) Sepsis: Status: Acute (5) Meningitis: Status: Acute Additional A&P Information Sepsis with history of polysubstance abuse Criteria met with tachypnea tachycardia leukocytosis ESR 105 high inflammatory markers, CRP high Lumbar puncture failed CT scan showing air to 12 L1 right psoas muscle, proctitis and rectocele Patient has history of IV drug abuse considering worsening of back pain and neck stiffness high risk for meningitis she will consider immunocompromise due to her polysubstance abuse U tox positive for marijuana and opioids I will go ahead and start her on vancomycin, cefepime, my threshold to start antifungal would be low considering her history of IV drug abuse She will not be able to lay flat for MRI as well, BMI 33, she is claustrophobic She is not vaccinated for COVID-19 Will request MRSA nares, Covid antigen Blood cultures, urinalysis Pneumonitis present on x-ray, lesions are present on previous x-rays as well, risk of aspiration pneumonia as she required intubation secondary to her belligerent behavior, history of inhaling bath salts. Previous transesophageal echo ruled out infective endocarditis pulmonology and ID were consulted. She finished 2 weeks of IV antibiotics with cefazolin, she is high risk to get any PICC line due to drug history, she was discharged on doxycycline Previously she had MSSA bacteremia, urine was positive for E. coli Opiate dependence I would continue Suboxone and avoid opiates for now she has not taken her Suboxone for last 8 days no ever opiates positive in the urine Her Suboxone was associated with bradycardia, she was instructed to use only once or twice a day, bradycardia and hypothermia was noted as well DVT prophylaxis: SCDs I would avoid Lovenox for now and will request fluoroscopic lumbar puncture Consistent carb diet Moderate sliding scale Lantus Depression anxiety bipolar: Continue SSRI Full code Attestations Medical Necessity Statement*: Need management for sepsis ,meningitis Time Spent in Patient Care: Greater than 35 minutes Coding Level of Care Code 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
--- NOTE | 2021-03-26 16:37 | PC.NURSE ---
Attempted to get report from ER, but ER nurse is unavailable at this time.
--- NOTE | 2021-03-26 17:07 | PC.NURSE ---
attempted report again placed on hold for extended amount of time, attempt to call again and line was picked up and immediately placed on hold
[2021-03-26 17:27] LABS: Procalcitonin 0.42 ng/mL (0-0.5)
[2021-03-26 18:26] LABS: Glucose Point of Care 332 mg/dL (70-110)
[2021-03-26] MEDS: buprenorphine-naloxone 4-1 mg Film 2 EACH SUBLINGUAL ×2 (18:37→22:28)
[2021-03-26 19:55] LABS: Glucose Point of Care 423 mg/dL (70-110)
[2021-03-26] MEDS: ipratropium-albuterol 3 mL Neb INHALATION (20:58)
[2021-03-26] MEDS: cefepime 2,000 MG in sodium chloride 0.9% (plus) 50 ML 100 MG IV (21:27)
[2021-03-26] MEDS: vancomycin 1,500 MG/300 ML PIGGYBACK 200 MG IV (22:28)
[2021-03-27] VITALS (8 sets, daily range): BP systolic 146–161; BP diastolic 82–89; PULSE 71–84; RESP 16–18; TEMP 36.6–36.8; O2SAT 92–96
[2021-03-27] MEDS: piperacillin-tazobactam 3.375 GM in sodium chloride 0.9% (plus) 50 ML IV ×4 (00:18→21:06)
--- NOTE | 2021-03-27 05:42 | PC.NURSE ---
Shift Note Frequent safety and comfort rounds continue. Orders and/or nursing care completed as indicated. Patient monitored for response to intervention and treatment(s). Education provided includes need for antibiotic therapy and teaching on DM management. Patient and/or passenger relations representative verbalized understanding. Will continue to monitor.
[2021-03-27] MEDS: insulin glargine 100 units/1 mL 20 UNIT SUBCUT (06:10)
[2021-03-27 06:15] LABS: Alanine Aminotransferase 18 U/L (0-33); Albumin Level 2.1 g/dL (3.5-5.2); Alkaline Phosphatase 237 IU/L (35-105); Anion Gap 16.1 (5-19); Aspartate Amino Transferase 30 U/L (0-32); Blood Urea Nitrogen 14 mg/dL (6-20); Calcium 8.9 mg/dL (8.5-10.5); Carbon Dioxide 17 mmol/L (22-29); Chloride 105 mmol/L (98-107); Globulin 6.2 g/dL (1.3-4.6); Glomerular Filtration Rate 176.8 mL/min (90-130); Glucose 212 mg/dL (65-115); Osmolality Calculated 285 mOsm/kg (285-295); Potassium 4.1 mmol/L (3.5-5.1); Sodium 134 mmol/L (136-145); Total Bilirubin 0.7 mg/dL (0.15-1.2); Total Protein 8.3 g/dL (6.6-8.7)
[2021-03-27 06:38] LABS: Glucose Point of Care 261 mg/dL (70-110)
[2021-03-27] MEDS: cefepime 2,000 MG in sodium chloride 0.9% (plus) 50 ML 100 MG IV ×2 (09:23→23:52)
[2021-03-27] MEDS: levothyroxine 100 mcg Tablet PO (09:24)
[2021-03-27] MEDS: sertraline 50 mg Tablet 25 MG PO (09:24)
[2021-03-27] MEDS: buprenorphine-naloxone 4-1 mg Film 2 EACH SUBLINGUAL ×3 (09:32→21:11)
[2021-03-27] MEDS: vancomycin 1,500 MG/300 ML PIGGYBACK 200 MG IV (10:10)
[2021-03-27 10:42] LABS: Glucose Point of Care 260 mg/dL (70-110)
--- NOTE | 2021-03-27 13:11 | P.PN_ITS ---
Subjective Subjective: Interval history: This morning patient is stating that she has been taking Suboxone however yesterday she was able to tell me that she did not take it any for last 8 days Overnight no events she did not require clonidine for her opiate withdrawal She has been afebrile, her CBC is pending from today, she refused fluoroscopic lumbar puncture today Continuing broad-spectrum antibiotics Remove Boykin catheter Patient is endorsing that her neck pain is slightly better she is able to do some flexion and extension comparatively better than yesterday No blurry vision, nausea, or vomiting She does have coarse tremor Vitals/I&O/Wt Last Vital Signs Temp 98.2 F 03/27/21 12:00 Pulse 84 03/27/21 12:00 Resp 18 03/27/21 12:00 BP 146/82 03/27/21 12:00 Pulse Ox 94 03/27/21 12:00 03/26/21 03/27/21 03/27/21 22:59 06:59 14:59 Intake Total 550 / 1550 350 / 1900 400 / 400 Output Total 1999 / 1999 1000 / 3000 Balance -1450 / -450 -650 / -1100 400 / 400 Weight last 48 hrs Weight 104.326 kg Weight 102.058 kg Physical Exam Narrative: EXAM NARRATIVE: Anxious appearing female sitting in her b ed Coarse tremors evident Pupils dilated bilaterally S1, S2 sinus rhythm no murmur Abdomen soft Lower extremity no edema No signs of cauda equina Anxious mood EOMI, PERRLA Kerning's sign negative, she is able to do neck flexion and extension with less pain today Urinary Catheter Management^: Boykin: Cath Placed During This Visit: yes Reason for Continuing Indwelling Catheter: Acute Urinary Retention or Obs truction Urinary Catheter Date of Insertion: 03/26/21 Urinary Catheter Time of Insertion: 09:46 Data : 03/26/21 04:53 03/27/21 05:26 Micro: Microbiology 03/26/21 04:43 Blood Culture - Preliminary Blood NEGATIVE TO DATE 03/26/21 04:53 Blood Culture - Preliminary Blood NEGATIVE TO DATE A&P Assessment and plan (1) Meningitis: Status: Acute (2) Sepsis: Status: Acute (3) Polysubstance abuse: Status: Acute (4) Acute proctitis: Status: Acute (5) Adjustment reaction with anxiety and depression: Status: Acute (6) Staphylococcus aureus bacteremia: Status: Acute Additional A&P Information Sepsis Proctitis with concern for meningitis Complaining of back pain her neck pain is slightly better today Brudzinski sign positive with negative Kernig sign I would keep her on empirical antibiotic coverage for double anti pseudomonal I plan to de-escalate antibiotics tomorrow if she stays afebrile, for some reason she does not have CBC today, she refused lumbar puncture today as well Proved history of MSSA bacteremia however no vegetation on transesophageal echo Polysubstance abuse, opiate withdrawal I would keep her on clonidine for as needed basis, coarse tremors with anxiety, continue Suboxone DVT prophylaxis: Lovenox, she refused lumbar puncture Consistent carb diet Moderate sliding scale for type 2 diabetes Continue SSRI for depression Full code Attestations Medical Necessity Statement*: Continue IV antibiotics Time Spent in Patient Care: less than 15 minutes Coding Level of Care Code Acute 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
--- NOTE | 2021-03-27 14:20 | PC.CHAP ---
Pastoral Care Encounter/Spiritual Assessment Type of Contact [] Declined assembler body visit [] Patient/Family/Request visit [] Outpatient visit [] Follow-up visit [] Physician referral [] Code/Alert [xx] Routine visit [] Staff referral [] Actively dying [] Patient sleeping [] Family support [] [] Out of room [] Palliative care [] [] Receiving care in room [] Pre-surgical visit [] Trauma [] Long length of stay [] ICU visit [] Other: Relational/Emotional Strength [xx] Patient feels connected with others/family/visitors/staff [] Distress [] Loneliness/isolation [] Abandonment Spirituality of Patient [] Person of Connie [] Attends Faith of their Connie [xx] Believes in Prayer [] Reads Bible or Jewish materials [] There are Spiritual issues to be addressed Globe Tester Interventions [xx] Prayer [xx] Active listening [xx] Non-anxious presence [] Spiritual/emotional support [] Crisis/trauma care [] Spiritual counseling [] Bereavement support [] Provided bereavement packet [] Provided Bible/devotional materials [] Provided toy/stuffed animal, coloring book to patient or family member [] Provided Communion [] Anointing/[place] [] Salvation [xx] Completed spiritual assessment [] Other: Impact on Illness or Injury [] Angry [] Fearful [] Anxious [] Often cries [] Exhaustion [] Unable to work [] Unable to attend bahai [] Unable to walk/stand [] Unable to read [] Unable to drive [] Unable to eat/drink [] Unable to sleep [] Unable to be with family [] Patient intubated [] Other: Summary Patient asked for prayer. Patient was sleepy so visit kept short. Time spent with patient 3 minutes
[2021-03-27 16:42] LABS: Glucose Point of Care 169 mg/dL (70-110)
--- NOTE | 2021-03-27 18:30 | PC.RESP ---
Smoking Cessation information sent to patient.
[2021-03-27 19:37] LABS: Vancomycin Trough 12.6 ug/mL (10-15)
[2021-03-27 21:09] LABS: Glucose Point of Care 214 mg/dL (70-110)
[2021-03-27] MEDS: acetaminophen 500 mg Tablet PO (21:11)
[2021-03-28] VITALS (8 sets, daily range): BP systolic 153–166; BP diastolic 71–92; PULSE 71–82; RESP 16–18; TEMP 36.6–37.3; O2SAT 93–97
[2021-03-28] MEDS: vancomycin 1,500 MG/300 ML PIGGYBACK 200 MG IV ×3 (00:36→21:01)
[2021-03-28] MEDS: piperacillin-tazobactam 3.375 GM in sodium chloride 0.9% (plus) 50 ML IV ×3 (05:04→22:54)
[2021-03-28 05:49] LABS: Glucose Point of Care 146 mg/dL (70-110)
[2021-03-28] MEDS: insulin glargine 100 units/1 mL 20 UNIT SUBCUT (06:39)
[2021-03-28 07:05] LABS: Basophils % 0.2 %; Eosinophils % 0.2 %; Hematocrit 28.9 % (37.0-47.0); Hemoglobin 8.8 g/dL (11.5-15.3); Lymphocytes # 2.7 10^3/uL (0.8-4.8); Lymphocytes % 27.2 %; Mean Corpuscular HGB Conc 30.4 g/dL (30.0-36.0); Mean Corpuscular Volume 82.1 fl (81-99); Monocytes # 1.3 10^3/uL (0.2-0.9); Monocytes % 12.9 %; Neutrophils # 5.92 10^3/uL (1.8-7.7); Neutrophils % 58.9 %; Nucleated Red Blood Cells % 0 %; Platelet Count 154 10^3/cmm (130-400); Red Blood Count 3.52 10^6/uL (4.1-5.3); Red Cell Distribution Width 25.2 % (12.1-15.1); White Blood Count 10.1 10^3/uL (4.0-10.0)
[2021-03-28 07:36] LABS: Blood Urea Nitrogen 17 mg/dL (6-20); C Reactive Protein 71.3 mg/L (0.0-4.9); Calcium 8.3 mg/dL (8.5-10.5); Carbon Dioxide 19 mmol/L (22-29); Chloride 106 mmol/L (98-107); Glomerular Filtration Rate 176.8 mL/min (90-130); Glucose 119 mg/dL (65-115); Osmolality Calculated 281 mOsm/kg (285-295); Sodium 134 mmol/L (136-145)
[2021-03-28] MEDS: cefepime 2,000 MG in sodium chloride 0.9% (plus) 50 ML 100 MG IV (07:37)
[2021-03-28 07:40] LABS: Procalcitonin 0.25 ng/mL (0-0.5)
[2021-03-28 07:53] LABS: Anion Gap 13.1 (5-19); Potassium 4.1 mmol/L (3.5-5.1)
[2021-03-28] MEDS: buprenorphine-naloxone 4-1 mg Film 2 EACH SUBLINGUAL ×3 (08:52→21:06)
[2021-03-28] MEDS: levothyroxine 100 mcg Tablet PO (08:53)
[2021-03-28] MEDS: sertraline 50 mg Tablet 25 MG PO (08:53)
[2021-03-28 10:54] LABS: Glucose Point of Care 141 mg/dL (70-110)
--- NOTE | 2021-03-28 13:15 | PM.PN ---
Subjective Subjective: Interval history: Patient is endorsing improvement in neck pain, she is able to move her extremities however she has not try to get out of bed because of her back pain I have asked nurse to remove her Boykin catheter and discontinue isolation I do not suspect herpes encephalitis or Neisseria meningitis She has been afebrile, leukocytosis improving, No increasing procalcitonin Vitals/I&O/Wt Last Vital Signs Temp 97.9 F 03/28/21 12:00 Pulse 74 03/28/21 12:00 Resp 16 03/28/21 12:00 BP 166/75 03/28/21 12:00 Pulse Ox 97 03/28/21 12:00 03/27/21 03/28/21 03/28/21 22:59 06:59 14:59 Intake Total 290 / 690 520 / 1210 400 / 400 Output Total 1150 / 2350 600 / 2950 1750 / 1750 Balance -860 / -1660 -80 / -1740 -1350 / -1350 Weight last 48 hrs Weight 104.326 kg Physical Exam Narrative: EXAM NARRATIVE: Patient was laying comfortably in his bed Able to move her extremities No sign of cauda equina Today she is able to flex her neck more as compared to yesterday however experiences some limitation on right lateral rotation Pupils are dilated Mild tremors Soft abdomen Low symmetry no edema EOMI, PERRLA Urinary Catheter Management^: Boykin: Cath Placed During This Visit: yes Reason for Continuing Indwelling Catheter: Chronic Indwelling Urinary Catheter on Admission Urinary Catheter Date of Insertion: 03/26/21 Urinary Catheter Time of Insertion: 09:46 Data : 03/28/21 06:28 03/28/21 06:28 A&P Assessment and plan (1) Meningitis: Status: Acute (2) Sepsis: Status: Acute (3) Polysubstance abuse: Status: Acute (4) Acute proctitis: Status: Acute (5) Adjustment reaction with anxiety and depression: Status: Acute Additional A&P Information Sepsis with proctitis Meningitis not ruled out Patient is showing improvement of her neck pain however she has chronic back pain Remove Boykin catheter and have her walk down the pavon with a walker PT evaluation Patient does have a walker at home Afebrile, no worsening leukocytosis Discontinue cefepime continue vancomycin and Zosyn Will request echo to rule out culture-negative endocarditis Polysubstance abuse with mild opiate withdrawal symptoms currently stable did not require clonidine at all Continue Suboxone Hypothyroidism: Continue levothyroxine Type 2 diabetes: Lantus 10 units along with sliding scale Consistent carb diet Full code DVT prophylaxis Lovenox Attestations Medical Necessity Statement*: Anticipating discharge within 48 hours if cultures remain negative Time Spent in Patient Care: 16 - 35 minutes Coding Level of Care Code 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
[2021-03-28] MEDS: enoxaparin 40 mg/0.4 mL Syringe SUBCUT (13:58)
--- NOTE | 2021-03-28 14:47 | PC.NURSE ---
Removed patients renteria. Was not able to chart d/c due to it was all greyed out.
[2021-03-28 17:10] LABS: Glucose Point of Care 148 mg/dL (70-110)
--- NOTE | 2021-03-28 18:43 | PC.NURSE ---
Patient AAOx4, rested most of day in bed, OOBT bathroom without complications and standby assist. VSS, pain controlled. No new events or concerns throughout shift. Spoke with patients mother on the phone. Gave mother an update. Mother was concerned about patient not being able to walk. Explained that she is out of bed and walking. Reporting to oncoming nurse and handoff.
[2021-03-28 20:44] LABS: Glucose Point of Care 137 mg/dL (70-110)
[2021-03-29] VITALS (7 sets, daily range): BP systolic 122–144; BP diastolic 72–84; PULSE 73–83; RESP 16–18; TEMP 36.7–37.2; O2SAT 94–98
[2021-03-29] MEDS: piperacillin-tazobactam 3.375 GM in sodium chloride 0.9% (plus) 50 ML IV ×3 (04:42→22:57)
[2021-03-29] MEDS: acetaminophen 500 mg Tablet PO ×2 (04:43→21:01)
[2021-03-29 05:55] LABS: Basophils % 0.2 %; Eosinophils % 0.6 %; Hematocrit 34.5 % (37.0-47.0); Hemoglobin 10.7 g/dL (11.5-15.3); Lymphocytes # 2.3 10^3/uL (0.8-4.8); Lymphocytes % 35.4 %; Mean Corpuscular Hemoglobin 24.5 pg (28.0-34.0); Mean Corpuscular Volume 79.1 fl (81-99); Mean Platelet Volume 9.7 fL (7.4-10.4); Monocytes # 1.3 10^3/uL (0.2-0.9); Monocytes % 19.5 %; Neutrophils # 2.81 10^3/uL (1.8-7.7); Neutrophils % 43.7 %; Nucleated Red Blood Cells % 0.3 %; Platelet Count 150 10^3/cmm (130-400); Red Blood Count 4.36 10^6/uL (4.1-5.3); White Blood Count 6.4 10^3/uL (4.0-10.0)
--- NOTE | 2021-03-29 06:00 | USCV_ITS ---
Gina Jay Age: 40 Gender: F : 1980 Exam Date: 03/29/2021 06:38 Ordering Phys: Candy Remy MD Technologist: Cecelia Branham Exam Location: [facility] [place] Indication: IVDA, H/O SEPSIS BP: 144 / 80 HR: 74 Rhythm: Sinus Technical Quality: Technically difficult study MEASUREMENTS (Male / Female) Normal Values 2D ECHO LV Diastolic Diameter PLAX 4.5 cm 4.2 - 5.9 / 3.9 - 5.3 cm LV Systolic Diameter PLAX 3.0 cm LV Chamber Size 4.0 cm IVS Diastolic Thickness 2.0 cm 0.6 - 1.0 / 0.6 - 0.9 cm IVS Systolic Thickness 1.8 cm LVPW Diastolic Thickness 1.3 cm 0.6 - 1.0 / 0.6 - 0.9 cm LVPW Systolic Thickness 1.8 cm RV Chamber Size 3.1 cm LVOT Diameter 2.1 cm LV Ejection Fraction 2D Teich 63.0 % LA Diameter 3.6 cm LA Width 2.6 cm LA Height 5.4 cm RA Width 2.8 cm RA Height 4.8 cm Aorta at Sinotubular Diameter 2.4 cm M-MODE LV Diastolic Diameter MM 5.7 cm 4.2 - 5.9 / 3.9 - 5.3 cm LV Systolic Diameter MM 3.2 cm LV Ejection Fraction MM Teich 74.0 % IVS Diastolic Thickness MM 1.1 cm 0.6 - 1.0 / 0.6 - 0.9 cm IVS Systolic Thickness MM 1.5 cm LVPW Diastolic Thickness MM 1.9 cm 0.6 - 1.0 / 0.6 - 0.9 cm LVPW Systolic Thickness MM 2.1 cm RV Diastolic Diameter MM 1.4 cm Aortic Annulus Diameter 3.0 cm LA Ao Ratio MM 1.3 MV E Point Septal Separation 0.4 cm DOPPLER AV Peak Velocity 155.0 cm/s LVOT Peak Velocity 119.0 cm/s AV Area Cont Eq vti 2.6 cm squared AV Area Cont Eq pk 2.6 cm squared MV Area PHT 3.9 cm squared Mitral E to A Ratio 1.1 MV E' Velocity 41.5 cm/s Mitral E to MV E' Ratio 9.6 Mitral E to LV E' Lateral Ratio 8.6 Mitral E to LV E' Septal Ratio 10.8 TR Peak Velocity 243.0 cm/s TR Peak Gradient 23.6 mmHg TV Peak E Velocity 44.0 cm/s Right Atrial Pressure 3.0 mmHg Pulmonary Artery Systolic Pressu 26.6 mmHg PV Peak Velocity 101.0 cm/s RV Acceleration Time 0.1 s RV Ejection Time 0.3 s RV AcT/ET 0.4 FINDINGS Left Ventricle Normal left ventricular size. LV systolic function is normal with EF of 55 to 60%. No regional wall motion normalities are seen. Normal diastolic filling pattern. Right Ventricle The right ventricle is normal in size and function. Right Atrium The right atrium is normal in size. Left Atrium The left atrium is normal in size. Mitral Valve Structurally normal mitral valve. Trace mitral valve. Aortic Valve Aortic valve is thickened. 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 No aortic regurgitation or stenosis noted Tricuspid Valve Grossly normal without significant stenosis. Mild tricuspid regurgitation. Insufficient TR jet to calculate RVSP Pulmonic Valve Not well visualized Pericardium Normal pericardium without effusion. Aorta Normal ascending aorta dimension. CONCLUSIONS LV systolic function is normal with EF of 55-60%. Normal diastolic function Aortic valve is thickened. 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 No aortic regurgitation or stenosis noted. Clinical correlation is required Raz Kenney MD (Electronically Signed) Final Date: 29 March 2021 13:28 S
[2021-03-29 06:13] LABS: Blood Urea Nitrogen 12 mg/dL (6-20); Calcium 8.2 mg/dL (8.5-10.5); Carbon Dioxide 18 mmol/L (22-29); Chloride 102 mmol/L (98-107); Glomerular Filtration Rate 176.8 mL/min (90-130); Glucose 97 mg/dL (65-115); Osmolality Calculated 274 mOsm/kg (285-295); Sodium 132 mmol/L (136-145)
[2021-03-29 06:18] LABS: Anion Gap 15.9 (5-19); Potassium 3.9 mmol/L (3.5-5.1)
[2021-03-29 06:28] LABS: Slide Review Slide Review Perform
[2021-03-29 06:34] LABS: Glucose Point of Care 104 mg/dL (70-110)
[2021-03-29] MEDS: insulin glargine 100 units/1 mL 20 UNIT SUBCUT (06:35)
[2021-03-29] MEDS: vancomycin 1,500 MG/300 ML PIGGYBACK 200 MG IV ×2 (09:08→20:57)
[2021-03-29] MEDS: sertraline 50 mg Tablet 25 MG PO (09:16)
[2021-03-29] MEDS: levothyroxine 100 mcg Tablet PO (09:17)
[2021-03-29] MEDS: buprenorphine-naloxone 4-1 mg Film 2 EACH SUBLINGUAL ×3 (09:17→21:03)
[2021-03-29 10:33] LABS: Glucose Point of Care 148 mg/dL (70-110)
--- NOTE | 2021-03-29 13:23 | P.PN_ITS ---
Subjective Subjective: Interval history: Patient is feeling better, her neck pain has slightly improved she is able to bear weight on her legs she has tried to walk towards the bathroom today Boykin catheter has been removed No acute worsening of back pain No nausea vomiting or fever blood cultures negative since admission Vitals/I&O/Wt Last Vital Signs Temp 98.2 F 03/29/21 11:12 Pulse 80 03/29/21 11:12 Resp 16 03/29/21 11:12 BP 122/75 03/29/21 11:12 Pulse Ox 96 03/29/21 11:12 03/28/21 03/29/21 03/29/21 22:59 06:59 14:59 Intake Total 470 / 870 50 / 920 590 / 590 Output Total 1025 / 2775 Balance -555 / -1905 50 / -1855 590 / 590 Physical Exam Narrative: EXAM NARRATIVE: Young female sitting at the bedside she is able to do neck flexion extension her neck pain gets worse on right lateral movement however it seems sternomastoid muscle cramps more than posterior back pain, she is not complaining of headache Negative kerning's sign, No signs of cauda equina S1, S2 sinus rhythm Poor dental hygiene Obese, with obesity no signs of peritonitis Awake and alert cooperative very pleasant No signs of opioid withdrawal however pupils are dilated Urinary Catheter Management^: Boykin: Cath Placed During This Visit: yes Reason for Continuing Indwelling Catheter: Chronic Indwelling Urinary Catheter on Admission Urinary Catheter Date of Insertion: 03/26/21 Urinary Catheter Time of Insertion: 09:46 Data : 03/29/21 05:02 03/29/21 05:02 A&P Assessment and plan (1) Meningitis: Status: Acute (2) Sepsis: Status: Acute (3) Polysubstance abuse: Status: Acute (4) Acute proctitis: Status: Acute (5) Adjustment reaction with anxiety and depression: Status: Acute Additional A&P Information Sepsis secondary to proctitis Sepsis: Resolved Afebrile since admission, cultures negative Currently on vancomycin and Zosyn Neck pain has slightly improved, looking her clinical presentation I do not think she had diagnosis of meningitis or encephalitis However epidural abscess and meningitis has not been officially ruled out we could not obtain CSF studies I would obtain echo to rule out culture-negative endocarditis If she is showing signs of clinical improvement likely will be discharged on Tuesday And planning to send her home on ciprofloxacin and Flagyl Polysubstance abuse no active opiate withdrawal symptoms I would discontinue clonidine Consistent carb diet Full code DVT prophylaxis Lovenox Attestations Medical Necessity Statement*: Anticipating discharge in next 24 hours likely on Tuesday Time Spent in Patient Care: less than 15 minutes Coding Level of Care Code Acute Micro Computer Specialist for Renatag Fwd Diagnoses Meningitis G03.9 Sepsis A41.9 Polysubstance abuse F19.10 Acute proctitis K62.89 Adjustment reaction with anxiety and depression F43.23
[2021-03-29] MEDS: enoxaparin 40 mg/0.4 mL Syringe SUBCUT (14:44)
[2021-03-29 17:33] LABS: Glucose Point of Care 105 mg/dL (70-110)
--- NOTE | 2021-03-29 17:58 | PC.NURSE ---
renteria catheter was removed on 03/28/21 and documentation was not completed. travel writer completed documentation and dated and timed it for when it was charted.
[2021-03-29 20:09] LABS: Glucose Point of Care 142 mg/dL (70-110)
[2021-03-30] VITALS (7 sets, daily range): BP systolic 109–158; BP diastolic 75–93; PULSE 71–89; RESP 16–18; TEMP 36.6–36.9; O2SAT 94–98
[2021-03-30] MEDS: acetaminophen 500 mg Tablet PO ×2 (03:04→10:15)
[2021-03-30] MEDS: piperacillin-tazobactam 3.375 GM in sodium chloride 0.9% (plus) 50 ML IV ×2 (05:37→12:30)
[2021-03-30 06:30] LABS: Glucose Point of Care 130 mg/dL (70-110)
[2021-03-30 06:47] LABS: Basophils % 0.2 %; Eosinophils % 0.6 %; Hematocrit 27.2 % (37.0-47.0); Hemoglobin 8.2 g/dL (11.5-15.3); Lymphocytes # 1.8 10^3/uL (0.8-4.8); Lymphocytes % 38.1 %; Mean Corpuscular HGB Conc 30.1 g/dL (30.0-36.0); Mean Corpuscular Hemoglobin 25.2 pg (28.0-34.0); Mean Corpuscular Volume 83.7 fl (81-99); Mean Platelet Volume 9.2 fL (7.4-10.4); Monocytes # 0.9 10^3/uL (0.2-0.9); Monocytes % 18.5 %; Neutrophils # 1.94 10^3/uL (1.8-7.7); Neutrophils % 41.7 %; Nucleated Red Blood Cells % 0 %; Platelet Count 117 10^3/cmm (130-400); Red Blood Count 3.25 10^6/uL (4.1-5.3); Red Cell Distribution Width 24.7 % (12.1-15.1); White Blood Count 4.7 10^3/uL (4.0-10.0)
[2021-03-30] MEDS: insulin glargine 100 units/1 mL 20 UNIT SUBCUT (06:49)
[2021-03-30 07:07] LABS: Anion Gap 12.3 (5-19); Blood Urea Nitrogen 11 mg/dL (6-20); Carbon Dioxide 20 mmol/L (22-29); Chloride 105 mmol/L (98-107); Glomerular Filtration Rate 176.8 mL/min (90-130); Potassium 3.3 mmol/L (3.5-5.1); Sodium 134 mmol/L (136-145)
[2021-03-30 07:08] LABS: Glucose 114 mg/dL (65-115); Osmolality Calculated 278 mOsm/kg (285-295)
[2021-03-30] MEDS: sertraline 50 mg Tablet 25 MG PO (09:19)
[2021-03-30] MEDS: levothyroxine 100 mcg Tablet PO (09:19)
[2021-03-30] MEDS: buprenorphine-naloxone 4-1 mg Film 2 EACH SUBLINGUAL ×2 (09:19→16:04)
[2021-03-30] MEDS: vancomycin 1,500 MG/300 ML PIGGYBACK 200 MG IV (09:20)
[2021-03-30 11:11] LABS: Glucose Point of Care 168 mg/dL (70-110)
--- NOTE | 2021-03-30 15:21 | PM.DCS ---
Discharge Providers Date of Admission: 03/26/21 12:10 Date of Discharge: March 30, 2021 Attending Provider at Admission: Candy Remy MD Attending Provider at Discharge: Candy Remy MD Primary Care Provider: FARHAT Rivera Diagnoses at Discharge Discharge Diagnosis (1) Meningitis: Status: Acute (2) Sepsis: Status: Acute (3) Polysubstance abuse: Status: Acute (4) Acute proctitis: Status: Acute (5) Adjustment reaction with anxiety and depression: Status: Acute Reason for Visit Reason for Visit: Neck pain, back pain, shoulder pain Hospital Course Hospital Course HPI done by myself Gina Jay is a 40 year old female who presented today with chief complaint of worsening neck pain and back pain. Patient is stating that she was evaluated for gallstones in January. Around that time she was intoxicated with alcohol and probably took IV drugs as well. At home she has not been feeling well she lives with her mother and children. For last few days she has not been able to take her Suboxone stating they want to work. She has noticed fever 100.0 which are associated with stiffness of neck and back pain. Back pain got severe to the point she was not able to walk anymore. No recent syncopal event chest pain or vomiting however she is endorsing nausea. When I asked her about IV drug abuse she stated probably a month ago. She gets her Suboxone at [facility] from Dr. Biggs. Diagnostics in the ER consistent with sepsis tachypnea tachycardia and leukocytosis she received broad-spectrum antibiotics in the ER, lumbar puncture was attempted by Dr. Main however she did not remain still, ER physician could not get the CSF sample. She is not able to lay still or flat cannot get MRI Air seen at the level of T12-L1 secondary to the attempt Hydropic gallbladder no changes Proctitis perirectal inflammatory changes with rectocele Portal venous hypertension pneumonitis at lung bases Hospital course Patient was admitted for management of sepsis, opioid withdrawal, she was started on broad-spectrum antibiotics with double antipseudomonal coverage, she remained afebrile, blood cultures negative to date, for concern of culture-negative endocarditis echo was obtained which did not show any changes from last echo her recent transesophageal echo also did not reveal any signs of vegetations, patient opioid withdrawal symptoms improved, on subsequent days her neck pain and back pain showed some improvement she had no vision changes no mentation fluctuation. She was able to walk on her feet. Her kerning's sign was negative, she was able to do neck flexion extension and left lateral rotation she only felt pain on right lateral rotation, no tender lymphadenopathy no swelling noticed in oropharynx. Patient refused MRI, lumbar puncture however looking at her clinical progress I would keep meningitis/encephalitis lower in my differentials. Most likely her sepsis was related to proctitis, she was discharged on ciprofloxacin, Flagyl and voriconazole was added because last urine culture came back positive for Tamra glabrata, the sample was collected when she was intubated secondary to belligerent behavior due to opiate withdrawal. Patient refused spine MRI, she did not exhibit any signs of cauda equina. Thoracic cervical spine CT did show changes related to traumatic lumbar puncture which was done in the ER. Patient was advised to finish 2 more weeks on doxycycline as well because of previous history of MSSA bacteremia. White count on discharge 4.[address]/CT abdomen pelvis w con* [id number] IMPRESSION: 1. Mildly hydropic gallbladder. Similar to the prior ultrasound of 02/25/2021. 2. Perirectal inflammatory changes and presacral soft tissue thickening. No mass identified. Consider proctitis. Rectum is very inferiorly displaced and there also may be a rectocele. 3. Numerous foci of air within the disc of L4-5, L5-S1 and around the paravertebral soft tissues, along the RIGHT psoas, epidural and posterior soft tissues of the lumbar spine. These changes may all be related to lumbar puncture. Please correlate with attempted lumbar puncture. If there was no lumbar puncture discitis needs to be considered. 4. Hepatosplenomegaly and changes of portal venous hypertension. 5. Mild changes of pneumonitis at the lung bases. Physical Exam Narrative: EXAM NARRATIVE: Young female sitting at the bedside she is able to do neck flexion extension her neck pain gets worse on right lateral movement however it seems sternomastoid muscle cramps more than posterior back pain, she is not complaining of headache Negative kerning's sign, No signs of cauda equina S1, S2 sinus rhythm Poor dental hygiene Obese, with obesity no signs of peritonitis Awake and alert cooperative very pleasant No signs of opioid withdrawal however pupils are dilated Urinary Catheter Management^: Boykin: Cath Placed During This Visit: yes, but has since been removed by the nurse Reason for Continuing Indwelling Catheter: Chronic Indwelling Urinary Catheter on Admission Urinary Catheter Date of Insertion: 03/26/21 Urinary Catheter Time of Insertion: 09:46 Date Urinary Catheter Removed: 03/28/21 Time Urinary Catheter Discontinued: 14:47 Discharge Data Data Completed and Pending: Completed Studies During Hospitalization Category Date Time Status CT abdomen pelvis w con* [id number] Urge nt Cat Scan 03/26/21 07:[address] cervical spine w con [id number] Urgen t Cat Scan 03/26/21 11:[address] head wo con* [id number] Urgent Cat Scan 03/26/21 04:[address] thoracic spine w con [id number] Urgen t Cat Scan 03/26/21 11:57 Completed XR KUB portable [id number] Stat Exams 03/26/21 08:02 Completed XR chest 1V hilaria ble [id number] Stat Exams 03/26/21 08:02 Completed XR chest 1V hilaria ble [id number] Urgent Exams 03/26/21 04:31 Completed CV. echo complete * [id number] Routine Ultrasound 03/29/21 06:00 Completed Pending at discharge Category Date Time Status Blood Culture Sta t Lab 03/26/21 04:43 Results Vancomycin Trough Timed Lab 03/30/21 19:30 Ordered Labs from last 24 hours 03/30/21 03/30/21 03/30/21 10:51 06:18 06:18 WBC 4.7 RBC 3.25 L Hgb 8.2 L Hct 27.2 L MCV 83.7 D MCH 25.2 L MCHC 30.1 RDW 24.7 H Plt Count 117 L MPV 9.2 Neut % (Auto) 41.7 Lymph % (Auto) 38.1 [place] % (Auto) 18.5 Eos % (Auto) 0.6 Baso % (Auto) 0.2 Neut # (Auto) 1.94 Lymph # (Auto) 1.8 [place] # (Auto) 0.9 Eos # (Auto) 0.0 Baso # (Auto) 0.0 Nucleated RBC % (a uto) 0 Nucleated RBCs # 0.0 Sodium 134 L Potassium 3.3 L Chloride 105 Carbon Dioxide 20 L Anion Gap 12.3 BUN 11 Creatinine 0.4 L GFR Calculation 176.8 H Glucose 114 POC Glucose 168 H Calculated Osmolal ity 278 L Calcium 8.0 L 03/30/21 03/29/21 03/29/21 06:13 18:56 16:51 WBC RBC Hgb Hct MCV MCH MCHC RDW Plt Count MPV Neut % (Auto) Lymph % (Auto) [place] % (Auto) Eos % (Auto) Baso % (Auto) Neut # (Auto) Lymph # (Auto) [place] # (Auto) Eos # (Auto) Baso # (Auto) Nucleated RBC % (a uto) Nucleated RBCs # Sodium Potassium Chloride Carbon Dioxide Anion Gap BUN Creatinine GFR Calculation Glucose POC Glucose 130 H 142 H 105 Calculated Osmolal ity Calcium Vitals: Last Vital Signs Temp 98.1 F 03/30/21 12:00 Pulse 72 03/30/21 12:00 Resp 17 03/30/21 12:00 BP 129/81 03/30/21 12:00 Pulse Ox 98 03/30/21 12:00 Discharge Plan Discharge Patient Disposition: Home Condition: Stable Prescriptions: New voriconazole 50 mg tablet 200 mg PO DAILY Qty: 14 RF: 0 Senna Lax 8.6 mg tablet 8.6 mg PO DAILY Qty: 30 RF: 0 metronidazole 500 mg tablet 500 mg PO Q8H Qty: 30 RF: 0 ciprofloxacin HCl 500 mg tablet 500 mg PO BID Qty: 20 RF: 0 Continued (DME) blood sugar diagnostic Strip See Rx Instructions .ROUTE .MEDSUPPLY Qty: 100 RF: 5 ondansetron HCl [Zofran] 4 mg tablet 4 mg PO Q6H PRN (Reason: nausea and vomiting) Qty: 15 RF: 0 insulin aspart U-100 [Novolog Flexpen U-100 Insulin] 100 unit/mL (3 mL) insulin pen See Rx Instructions .ROUTE .COMPLEX RF: 0 Lantus Solostar U-100 Insulin 100 unit/mL (3 mL) insulin pen 20 unit SUBCUT QAM RF: 0 levothyroxine 100 mcg tablet 100 mcg PO DAILY RF: 0 propranolol 40 mg tablet 40 mg PO BID RF: 0 prenat.vits,andrew,hqr-gqip-rnuek Tablet 1 tab PO DAILY RF: 0 pregabalin 25 mg Capsule 25 mg PO BID 30 Days Qty: 60 RF: 0 bisacodyl 5 mg Tablet,Delayed Release (Dr/Ec) 5 mg PO PRN RF: 0 sertraline 50 mg tablet 25 mg PO DAILY RF: 0 Generlac 10 gram/15 mL solution See Rx Instructions .ROUTE .COMPLEX RF: 0 Suboxone 8-2 mg film 1 film sublingual TID RF: 0 fluoxetine 40 mg capsule 40 mg PO DAILY RF: 0 doxycycline hyclate 100 mg capsule 100 mg PO BID 10 Days Qty: 20 RF: 0 Changed furosemide 20 mg tablet 20 mg PO DAILY Qty: 0 RF: 0 Discharge Orders: Discharge Order (Routine); Ordered 03/30/21 Ordered By: Candy Remy Referrals: [facility] [Other] (Will need to call this number and answer a series of questions to see if you qualify for in home services through your medicaid. You will be assigned points based off of your answers to the questions to determine if you qualify. ) MADAN Mayfield, HYDRATION PLANT OPERATOR [Primary Care Provider] - 04/03/21 8:30 am Discharge Diet: Diabetic Discharge Activity: Increase activity as tolerated and Use walker/crutches as instructed Patient Instructions: Ciprofloxacin (By mouth), Laxative, Stimulant (By mouth), Metronidazole (By mouth), Voriconazole (By mouth), Viral Meningitis - Adult, Sepsis (GEN), Opioid Safety Activity Restrictions/Additional Instructions: Please finish 10 days of metronidazole ciprofloxacin Voriconazole is added for antifungal 2-week regimen your previous urine culture was positive for Tamra glabrata Discharge Attestations Time Spent in Discharge Care*: less than 30 min Status at Discharge: Cognitive status at discharge: cognitively intact, Behavioral status at discharge: cooperative, Quality Metrics Clinical Quality Measures During this hospital stay, did patient experience: None Coding Level of Care Code Acute Chg FW DC note Diagnoses Meningitis G03.9 Sepsis A41.9 Polysubstance abuse F19.10 Acute proctitis K62.89 Adjustment reaction with anxiety and depression F43.23
[2021-03-30] MEDS: enoxaparin 40 mg/0.4 mL Syringe SUBCUT (16:04)
--- NOTE | 2021-03-30 16:31 | PC.NURSE ---
PT HAS DONE WELL FOR ME TODAY. PT HAS HAD MINIMAL COMPLAINTS OF PAIN AND STIFFNESS. PT IS UP AND AMBULATING AND DOING WELL. PT WILL DISCHARGE HOME TODAY. MEDICATIONS SENT TO PHARMACY OF PT'S CHOICE. DISCHARGE PAPERWORK GONE OVER WITH PT. ALL QUESTIONS ANSWERED. IV REMOVED. CATHETER TIP INTACT. PT TOLERATED WELL. PT'S BELONGINGS GATHERED. READY TRANSPORTATION CAME UP TO GET PT. PT SAFELY DISCHARGED WITH TRANSPORTATION COMPANY.
--- NOTE | 2021-04-02 09:37 | PC.SOCIAL ---
multiple calls made for hospital discharge follow up. unable to reach patient and unable to leave message.
--- NOTE | 2021-05-06 05:10 | W.ED.BACK ---
HPI - Back Pain/Injury General: Chief Complaint: Back Pain/Injury Stated Complaint: Neck pain, back pain, shoulder pain Time Seen by Provider: 03/26/21 04:27 History of Present Illness: HPI Narrative: 31-year-old female presenting to the emergency room with complaints of headache, back pain, shoulder pain has been ongoing for the last few days. Patient states that she takes naproxen for her pain but however has noticed significant pain that is now controlled. Onset: 1 week ago acutely Duration: 1 week Associated symptoms: pain Exacerabation factors: movement Review of Systems Narrative: Constitutional: No fever, no chills. HEENT: No vision changes CV: No chest pain, no palpitations PULM: no cough, no dyspnea. GI: No abdominal pain, no N/V/D. : No dysuria MSKEL: +diffuse back pain SKIN: No new rashes, no lesions. NEURO: No headache, no focal weakness. HEME: No visible bruises PSYCH: Normal mood PFSH ED PFSH: Medical History (Updated 04/14/21 @ 00:00 by ) Abdominal pain Adjustment reaction with anxiety and depression Alcohol use disorder Anemia Anxiety with depression Bipolar disorder Borderline personality disorder Cholelithiasis Congestive heart failure Cystitis Diabetes mellitus, type II Drug-induced psychotic disorder FH: breast cancer in first degree relative H/O chronic hepatitis Hepatic encephalopathy Hypertension Hypertension screen Hypothyroid Meningitis Metabolic encephalopathy Methamphetamine abuse Muscle spasm Obstructive sleep apnea Opiate dependence 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 Pneumonia Polysubstance abuse Polysubstance abuse Respiratory failure with hypoxia Sepsis Staphylococcus aureus bacteremia Vitamin D deficiency Yeast dermatitis Surgical History History of Social History Smoking and tobacco status: never smoked Second hand smoke exposure: No Smoking risk assessment/counseling performed?: No Alcohol intake: never Desire information about alcohol rehabilitation?: No Counseling given: No Desire information about substance/drug rehabilitation?: No Counseling given: No Female Reproductive History: Date of last menstrual period: 10/23/20 Physical Exam Narrative: EXAM NARRATIVE: Head: Atraumatic Eyes: PERRL, conjunctiva without injection ENT: Mucous membrane moist NECK: Supple, ROM intact LUNGS: LCTAB, no crackles/rhonchi CV: RRR ABDOMEN: Soft, nontender in all quadrants EXTREMITY: Normal ROM SKIN: No rash or erythema NEURO: Awake and alert, no focal motor deficits PSYCH: Normal mood and affect BACK: +Diffuse tenderness to palpation over the C/T/L/S spine Course Vital Signs: Vital signs: Vital Signs Temperature 97.9 F 03/30/21 16:34 Pulse Rate 71 03/30/21 16:34 Respiratory Rate 18 03/30/21 16:34 Blood Pressure 158/91 03/30/21 16:34 Pulse Oximetry 96 03/30/21 16:34 MDM - Back Pain/Injury MDM Narrative: Medical decision making narrative: 41-year-old female presents the emergency room with diffuse back pain. On exam has diffuse tenderness to palpation. Imaging consistent with perirectal inflammation. Possible epidural abscess vs meningitis. Dr. Main attempted to perform LP but failed due to significant patient movement Disposition: Admission for ABX and serial reevaluation. Lab Data: Labs: Lab Results 03/26/21 03/26/21 03/26/21 04:53 04:53 04:53 WBC 12.0 10^3/uL H 10 ^3/uL (4.0-10.0) RBC 3.77 10^6/uL L 10 ^6/uL (4.1-5.3) Hgb 9.3 g/dL L g/dL (11.5-15.3) Hct 30.4 % L % (37.0-47.0) MCV 80.6 fl L fl (81-99) MCH 24.7 pg L pg (28.0-34.0) MCHC 30.6 g/dL g/dL (30.0-36.0) RDW 24.7 % H % (12.1-15.1) Plt Count 148 10^3/cmm 10^3 /cmm (130-400) MPV 8.9 fL fL (7.4-10.4) Neut % (Auto) 64.4 % % Lymph % (Auto) 18.5 % % Tal[place]ferro % (Auto) 15.9 % % Eos % (Auto) 0.4 % % Baso % (Auto) 0.3 % % Neut # (Auto) 7.71 10^3/uL H 10 ^3/uL (1.8-7.7) Lymph # (Auto) 2.2 10^3/uL 10^3/ uL (0.8-4.8) Tal[place]ferro # (Auto) 1.9 10^3/uL H 10^ 3/uL (0.2-0.9) Eos # (Auto) 0.1 10^3/uL 10^3/ uL (0.0-0.8) Baso # (Auto) 0.0 10^3/uL 10^3/ uL (0.0-0.1) Nucleated RBC % (a uto) 0 % % Nucleated RBCs # 0.0 /100WBC /100W BC ESR 105 mm/hr H mm/hr (0-15) Sodium 136 mmol/L mmol/L (136-145) Potassium 3.8 mmol/L mmol/L (3.5-5.1) Chloride 108 mmol/L H mmol /L (98-107) Carbon Dioxide 17 mmol/L L mmol/ L (22-29) Anion Gap 14.8 (5-19) BUN 10 mg/dL mg/dL (6-20) Creatinine 0.3 mg/dL L mg/dL (0.5-0.9) GFR Calculation 246.4 mL/min H mL /min (90-130) Glucose 166 mg/dL H mg/dL (65-115) Calculated Osmolal ity 285 mOsm/kg mOsm/ kg (285-295) Lactate Calcium 9.0 mg/dL mg/dL (8.5-10.5) Total Bilirubin 1.1 mg/dL mg/dL (0.15-1.2) AST 38 U/L H U/L (0-32) ALT 20 U/L U/L (0-33) Alkaline Phosphata se 306 IU/L H IU/L (35-105) C-Reactive Protein Total Protein 8.7 g/dL g/dL (6.6-8.7) Albumin 2.4 g/dL L g/dL (3.5-5.2) Globulin 6.3 g/dL H g/dL (1.3-4.6) Procalcitonin Urine Color Urine Appearance Urine pH Ur Specific Gravit y Urine Protein Urine Glucose (UA) Urine Ketones Urine Blood Urine Nitrate Urine Bilirubin Urine Urobilinogen Ur Leukocyte Jody ase Urine Opiates Scre en Ur Barbiturates Sc reen Ur Phencyclidine S crn Ur Amphetamines Sc reen U Benzodiazepines Scrn Urine Cocaine Scre en U Marijuana (THC) Screen 03/26/21 03/26/21 03/26/21 04:53 04:53 05:46 WBC RBC Hgb Hct MCV MCH MCHC RDW Plt Count MPV Neut % (Auto) Lymph % (Auto) [place]ferro % (Auto) Eos % (Auto) Baso % (Auto) Neut # (Auto) Lymph # (Auto) [place]ro # (Auto) Eos # (Auto) Baso # (Auto) Nucleated RBC % (a uto) Nucleated RBCs # ESR Sodium Potassium Chloride Carbon Dioxide Anion Gap BUN Creatinine GFR Calculation Glucose Calculated Osmolal ity Lactate Calcium Total Bilirubin AST ALT Alkaline Phosphata se C-Reactive Protein 176.0 mg/L H mg/L (0.0-4.9) Total Protein Albumin Globulin Procalcitonin 0.42 ng/mL ng/mL (0-0.5) Urine Color Mary (Yellow) Urine Appearance Clear (CLEAR) Urine pH 6.5 (5-7) Ur Specific Gravit y 1.010 (1.005-1.030) Urine Protein Neg (Negative) Urine Glucose (UA) Norm (Normal) Urine Ketones Negative (Negative) Urine Blood Neg (Negative) Urine Nitrate Negative (Negative) Urine Bilirubin 1+ H (Negative) Urine Urobilinogen 4 mg/dL H mg/dL (Negative) Ur Leukocyte Jody ase Negative (Negative) Urine Opiates Scre en Ur Barbiturates Sc reen Ur Phencyclidine S crn Ur Amphetamines Sc reen U Benzodiazepines Scrn Urine Cocaine Scre en U Marijuana (THC) Screen 03/26/21 03/26/21 05:46 08:25 WBC RBC Hgb Hct MCV MCH MCHC RDW Plt Count MPV Neut % (Auto) Lymph % (Auto) Taliaferro % (Auto) Eos % (Auto) Baso % (Auto) Neut # (Auto) Lymph # (Auto) [place]ferro # (Auto) Eos # (Auto) Baso # (Auto) Nucleated RBC % (a uto) Nucleated RBCs # ESR Sodium Potassium Chloride Carbon Dioxide Anion Gap BUN Creatinine GFR Calculation Glucose Calculated Osmolal ity Lactate 1.5 mmol/L mmol/L (0.5-2.2) Calcium Total Bilirubin AST ALT Alkaline Phosphata se C-Reactive Protein Total Protein Albumin Globulin Procalcitonin Urine Color Urine Appearance Urine pH Ur Specific Gravit y Urine Protein Urine Glucose (UA) Urine Ketones Urine Blood Urine Nitrate Urine Bilirubin Urine Urobilinogen Ur Leukocyte Jody ase Urine Opiates Scre en Positive ng/mL H ng/mL (Negative) Ur Barbiturates Sc reen Negative ng/mL ng /mL (Negative) Ur Phencyclidine S crn Negative ng/mL ng /mL (Negative) Ur Amphetamines Sc reen Negative ng/mL ng /mL (Negative) U Benzodiazepines Scrn Negative ng/mL ng /mL (Negative) Urine Cocaine Scre en Negative ng/mL ng /mL (Negative) U Marijuana (THC) Screen Positive ng/mL H ng/mL (Negative) Imaging Data^: Other Imaging: Radiologist's impression: [address] [id number] Scan ReportSigned Patient: Gina Jay #: [id number]: 1980Acct#:[id number]/Sex: 40 / FADM Date: 03/26/21Loc: ERRoom/Bed:Attending Dr: Ordering Provider/Ordering MD: Coty Howell MD Date of Service: 03/26/21 Procedure(s): CT abdomen pelvis w con* [id number] Accession Number(s): [id number] Report Number: [id number] WS: [id number] CT ABDOMEN AND PELVIS WITH CONTRAST HISTORY: Headache and confusion. Hip pain. TECHNIQUE: Imaging performed of the abdomen and pelvis with IV contrast. Single phase imaging of the abdomen. Coronal and sagittal reformats are submitted. All CT scans at [facility] use at least one of these dose optimization techniques: automated exposure control; mA and/or kV adjustment per patient size (includes targeted exams where dose is matched to clinical indication); or iterative reconstruction. IV CONTRAST: Visipaque 320; 95 mL IV. Oral contrast: No DLP: 1981.38 mGy.cm COMPARISON: 02/20/2021 Lower thorax: Dependent opacifications at the lung bases. More than typically seen for atelectasis. There is also groundglass attenuation. Consider pneumonitis. Mild enlargement of the heart. No hiatal hernia. Liver/biliary system: Mild hepatic steatosis. No mass. Normal portal vein. Gallbladder: Mildly hydropic gallbladder. Gallbladder is slightly enlarged. No adjacent inflammation. Small stones may be present at the gallbladder floor. Gallbladder is similar to prior study from 02/25/2021. Pancreas: Normal size pancreas and pancreatic duct. No adjacent inflammation. Spleen: Enlarged spleen measuring 17.3 cm in length. Splenic vein collaterals are noted. Adrenal glands: Normal. Right kidney: Normal size kidney. No obstruction. 8mm hypodensity mid kidney. Left kidney: Normal. Aorta: Mild atherosclerosis with no aneurysm. Lymphadenopathy: Small subcentimeter retroperitoneal and mesenteric lymph nodes. No adenopathy. Free fluid: None. GI tract: Diffuse fecal retention. No obstructive pattern. The appendix is normal. There is moderate distention of the rectal wall with fecal material. There is also perirectal inflammatory change within the fat and small amount of presacral soft tissue thickening. Abdominal wall: Unremarkable abdominal wall. No hernia. Pelvis: No pelvic mass. Uterus and ovaries are normal. Perirectal mild inflammatory changes and a small amount of presacral soft tissue thickening. Boykin catheter present in the urinary bladder. Bones: Degenerative disc disease at L4-5 and L5-S1. There are several foci of air which are new between the L4-5 and L5-S1 vertebral bodies and also in the paravertebral soft tissues around the L4 and L5 vertebral bodies and along the RIGHT psoas muscle. There is a small amount of air in the epidural space at T12-L1 and in the soft tissues posteriorly at the L4 level. These foci of air may all be related to a lumbar puncture. Please correlate with recent lumbar puncture attempt. CT/CT abdomen pelvis w con* [id number] IMPRESSION: 1. Mildly hydropic gallbladder. Similar to the prior ultrasound of 02/25/2021. 2. Perirectal inflammatory changes and presacral soft tissue thickening. No mass identified. Consider proctitis. Rectum is very inferiorly displaced and there also may be a rectocele. 3. Numerous foci of air within the disc of L4-5, L5-S1 and around the paravertebral soft tissues, along the RIGHT psoas, epidural and posterior soft tissues of the lumbar spine. These changes may all be related to lumbar puncture. Please correlate with attempted lumbar puncture. If there was no lumbar puncture discitis needs to be considered. 4. Hepatosplenomegaly and changes of portal venous hypertension. 5. Mild changes of pneumonitis at the lung bases. Dictated By:Nuvia Hooper DOSigned By:Nuvia Hooper DOSigned Date/Time:03/26/21/ [address] [place], [place] [address]ZJ Scan ReportSigned Patient: Gina Jay #: [id number]: [id number]#:[id number]/Sex: 40 / FADM Date: 03/26/21Loc: ERRoom/Bed:Attending Dr: Ordering Provider/Ordering MD: Farzaneh Main MD Date of Service: 03/26/21 Procedure(s): CT head wo con* [id number] Accession Number(s): [id number] Report Number: [id number] WS: [id number] CT HEAD NONCONTRAST HISTORY: Headache and confusion. TECHNIQUE: Contiguous axial imaging performed through the brain in 2.5 mm imaging. Bone and soft tissue windows. Sagittal and coronal reformats reviewed. All CT scans at [facility] use at least one of these dose optimization techniques: automated exposure control; mA and/or kV adjustment per patient size (includes targeted exams where dose is matched to clinical indication); or iterative reconstruction. DLP: 987.44 mGy.cm COMPARISON: 02/28/2021 No acute intracranial hemorrhage, midline shift or mass effect. No atrophy or prior infarcts or herniation. Ventricles: Normal size with no hydrocephalus. Paranasal sinuses: As visualized are clear. Mastoid air cells: Well pneumatized. Calvarium and scalp: Skull is intact with no soft tissue edema or swelling. CT/CT head wo con* [id number] IMPRESSION: Negative head CT. Dictated By:Nuvia Hooper DOSigned By:Nuvia Hooper DOSigned Date/Time:03/26/21/ [address] [place], [place] [address]CCwi ReportSigned Patient: Gina Jay #: [id number]: 1980t#:[id number]/Sex: 40 / FADM Date: 03/26/21Loc: ERRoom/Bed:Attending Dr: Ordering Provider/Ordering MD: Farzaneh Main MD Date of Service: 03/26/21 Procedure(s): XR chest 1V portable [id number] Accession Number(s): [id number] Report Number: [id number] PROCEDURE INFORMATION: Exam: XR Chest Exam date and time: 03/26/2021 4:31 AM Age: 40 years old Clinical indication: Chest pressure; Patient HX: Chest pain with bilateral shoulder pain. ; Additional info: Cp TECHNIQUE: Imaging protocol: XR of the chest. Views: 1 view. COMPARISON: CR (CHEST, ) 02/28/2021 5:54 AM FINDINGS: Lungs: Linear atelectasis or scar at the left lung base. There are low lung volumes. Linear atelectasis or scar in the right perihilar region. Pleural spaces: Unremarkable. No pleural effusion. No pneumothorax. Heart/Mediastinum: Unremarkable. No cardiomegaly. Bones/joints: Unremarkable. XR/XR chest 1V portable [id number] IMPRESSION: No cause for acute pain is identified. Dictated By:Ruiz Guerrero By:Ruiz Guerrero Date/Time:03/26/21619DD/ 8 Discharge Plan Discharge Patient Disposition: Admitted As Inpatient Admit Provider: Candy Remy Clinical Impression: Acute proctitis Condition: Stable Discharge Diet: Diabetic Discharge Activity: Increase activity as tolerated and Use walker/crutches as instructed Coding Level of Care Code ED Cage Loader for Lorri Chandler
== END 2021-03-30 16:34 | disposition home or self-care (01) | DRG 871 ==
LOC: ER 10:21 → MEDSURG 16:35
PROVIDERS: Emergency Medicine; Admitting Provider Internal Medicine; Emergency Provider Emergency Medicine; PCP Nurse Practitioner Family; Visit Provider Internal Medicine
DX: A41.01 Sepsis due to Methicillin susceptible Staphylococcus aureus (principal); G03.9 Meningitis, unspecified; J18.9 Pneumonia, unspecified organism; F11.23 Opioid dependence with withdrawal; F11.20 Opioid dependence, uncomplicated; K62.89 Other specified diseases of anus and rectum; F43.23 Adjustment disorder with mixed anxiety and depressed mood; F17.200 Nicotine dependence, unspecified, uncomplicated; E03.9 Hypothyroidism, unspecified; F12.20 Cannabis dependence, uncomplicated; E11.9 Type 2 diabetes mellitus without complications; I11.0 Hypertensive heart disease with heart failure; I50.9 Heart failure, unspecified; F10.11 Alcohol abuse, in remission; F31.9 Bipolar disorder, unspecified; Z79.4 Long term (current) use of insulin; Z88.2 Allergy status to sulfonamides; Z83.3 Family history of diabetes mellitus
CPT/HCPCS: 36415; 36416; 51702; 70450; 71045; 72126; 72129; 74018; 74177; 80048; 80053; 80202; 80306; 81003; 82962; 83605; 84145; 85025; 85651; 86140; 87040; 93306; 96365; 96367; 96372; 96375; 96376; 97116; 97161; 99291; J0573; J0692; J0696; J1170; J1200; J1650; J1815 ×2; J2060; J2270; J2405; J2543; J2930; J3370; J7030; J7050; Q9967; S0030

== ENCOUNTER 2021-07-27 19:32 | Inpatient (IN) | payer MEDICAID, SELFPAY ==
[2021-07-27 19:41] VITALS: BP 169/126; PULSE 93; RESP 18; O2SAT 97; BMI 33.4
--- NOTE | 2021-07-27 19:42 | CTR_ITS ---
PROCEDURE INFORMATION: Exam: CT Head Without Contrast Exam date and time: 07/27/2021 7:42 PM Age: 41 years old Clinical indication: Altered mental status/memory loss; Additional info: AMS TECHNIQUE: Imaging protocol: Computed tomography of the head without contrast. Radiation optimization: All CT scans at this facility use at least one of these dose optimization techniques: automated exposure control; mA and/or kV adjustment per patient size (includes targeted exams where dose is matched to clinical indication); or iterative reconstruction. COMPARISON: CT head wo con* [id number] 03/26/2021 8:40 AM RADIATION DOSE METRICS: Total DLP (mGy-cm): 949.49 FINDINGS: Brain: Normal. No hemorrhage. Unremarkable white matter. No mass effect. Cerebral ventricles: No ventriculomegaly. Paranasal sinuses: Visualized sinuses are unremarkable. No fluid levels. Mastoid air cells: Visualized mastoid air cells are well aerated. Bones/joints: Unremarkable. No acute fracture. Soft tissues: Unremarkable. CT/CT head wo con* [id number] IMPRESSION: No acute intracranial abnormality.
--- NOTE | 2021-07-27 19:42 | ECG_ITS ---
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 Measurements Intervals Scott Rate: 87 P: 30 AZ: 135 QRS: -5 QRSD: 101 T: 4 QT: 384 QTc: 463 Interpretive Statements SINUS RHYTHM POSSIBLE LEFT VENTRICULAR HYPERTROPHY [VOLTAGE CRITERIA PLUS LAE OR QRS WIDENING] MODERATE ST DEPRESSION [0.05+ mV ST DEPRESSION] Compared to ECG 02/24/2021 08:46:16 ST (T wave) deviation now present Sinus bradycardia no longer present Intraventricular conduction delay no longer present T-wave abnormality no longer present Electronically Signed On 07-27-2021 22:18:46 [employer] by Radha Sofia M.D. [id number]
--- NOTE | 2021-07-27 19:42 | XRR_ITS ---
PROCEDURE INFORMATION: Exam: XR Chest Exam date and time: 07/27/2021 7:42 PM Age: 41 years old Clinical indication: Other: AMS TECHNIQUE: Imaging protocol: XR of the chest. Views: 1 view. COMPARISON: CR XR chest 1V portable [id number] 03/26/2021 8:04 AM FINDINGS: Lungs: Unremarkable. No consolidation. Pleural spaces: Unremarkable. No pleural effusion. No pneumothorax. Heart/Mediastinum: Unremarkable. No cardiomegaly. Bones/joints: Unremarkable. XR/XR chest 1V portable [id number] IMPRESSION: No acute findings.
[2021-07-27 19:48] LABS: Glucose Point of Care 321 mg/dL (70-110)
[2021-07-27 20:00] VITALS: BP 199/99; PULSE 75; RESP 15; O2SAT 96
--- NOTE | 2021-07-27 20:07 | ED_ITS ---
HPI - Overdose General: Chief Complaint: Overdose Stated Complaint: AMS Time Seen by Provider: 07/27/21 19:39 Source: patient and EMS Mode of arrival: EMS Limitations: no limitations History of Present Illness: HPI Narrative: 41-year-old female has multiple medical issues including diabetic history of encephalopathy long history of drug abuse. Patient brought in by EMS because of the last 4 days family states that she has been coming out of the room and acting differently. When arrived she was unresponsive they gave her Narcan she is now awake. She is answering most my questions appropriately she does know her name the year where she is at she is quite lethargic she told EMS that she had taken some narcotics but she is refusing that to me. Blood sugar was in the three hundreds no chest pain last known normal was roughly 3 to 4 days ago. Review of Systems Const: Reports: fatigue and malaise Eyes: Denies: blurry vision or eye discomfort ENMT: Denies: throat pain or dental pain Card: Denies: chest pain Resp: Denies: dyspnea GI: Denies: abdominal pain, nausea, vomiting or diarrhea : Denies: dysuria Musc: Denies: neck pain or back pain Skin/Breast: Denies: rash Neuro: Reports: behavioral changes Psych: Denies: depression Patricio/Lymph: Denies: easy bruising All/Imm: Denies: urticaria PFSH ED PFSH: Medical History Abdominal pain Adjustment reaction with anxiety and depression Alcohol use disorder Anemia Anxiety with depression Bipolar disorder Borderline personality disorder Cholelithiasis Congestive heart failure Cystitis Diabetes mellitus, type II Drug-induced psychotic disorder FH: breast cancer in first degree relative H/O chronic hepatitis Hepatic encephalopathy Hypertension Hypertension screen Hypothyroid Meningitis Metabolic encephalopathy Methamphetamine abuse Muscle spasm Obstructive sleep apnea Opiate dependence 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 Pneumonia Polysubstance abuse Polysubstance abuse Respiratory failure with hypoxia Sepsis Staphylococcus aureus bacteremia Vitamin D deficiency Yeast dermatitis Surgical History History of Social History Smoking and tobacco status: never smoked Second hand smoke exposure: No Smoking risk assessment/counseling performed?: No Alcohol intake: never Desire information about alcohol rehabilitation?: No Counseling given: No Desire information about substance/drug rehabilitation?: No Counseling given: No Female Reproductive History: Date of last menstrual period: 10/23/20 Physical Exam Const: COMMON NORMALS: no acute distress and patient oriented x3 GENERAL APPEARANCE: disheveled and lethargic ORIENTATION/CONSCIOUSNESS: Yes lethargic HENMT: COMMON NORMALS: normocephalic and atraumatic HEAD & SCALP: normocephalic and atraumatic Eye: COMMON NORMALS: Equal, round and reactive pupils present and EOMs intact bilaterally PUPIL: Yes Equal, round and reactive pupils present Neck/C-Spine: COMMON NORMALS: full ROM and supple Chest: COMMONS NORMALS: normal inspection of the chest and normal palpation of entire chest wall Resp: COMMON NORMALS: normal respiratory effort, No retractions, No use of accessory muscles and clear to auscultation bilaterally AUSCULTATION: clear to auscultation bilaterally Cardio: COMMON NORMALS: regular rate, regular rhythm and No murmurs present (Cardio) RATE: regular rate RHYTHM: regular rhythm GI: COMMON NORMALS: Normal to inspection, nondistended, normoactive bowel sounds present, Soft to palpation, non-tender and no masses PALPATION: Yes Soft to palpation Extremity: COMMON NORMALS: normal to inspection and full ROM Neuro: COMMON NORMALS: patient oriented x3, moves all extremities and no focal motor deficits SENSORIUM/ORIENTATION: Yes lethargic Psych: COMMON NORMALS: mental status grossly normal, Normal thought process present and cooperative THOUGHT PROCESS: Normal thought process present Skin: COMMON NORMALS: no rashes or lesions noted and no wounds GENERAL SKIN EXAM: no rashes or lesions noted Course Vital Signs: Vital signs: Vital Signs Pulse Rate 84 07/27/21 21:20 Respiratory Rate 16 07/27/21 21:20 Blood Pressure 191/97 07/27/21 21:20 Pulse Oximetry 95 07/27/21 21:20 MDM - Overdose MDM Narrative: Medical decision making narrative: Patient presents with altered mental status and weakness likely due to encephalopathy as her ammonia is elevated and hypokalemia. Patient has a urinary tract infection as well. I spoke to hospitalist and will admit patient's been given potassium here along with lactulose and antibiotics for UTI. Lab Data: Labs: Lab Results 07/27/21 07/27/21 07/27/21 19:42 19:46 21:00 WBC RBC Hgb Hct MCV MCH MCHC RDW Plt Count MPV Neut % (Auto) Lymph % (Auto) [place] % (Auto) Eos % (Auto) Baso % (Auto) Neut # (Auto) Lymph # (Auto) [place] # (Auto) Eos # (Auto) Baso # (Auto) Nucleated RBC % (a uto) Nucleated RBCs # Specimen Type Arterial Sample Site Brachial, right ABG pH 7.48 H (7.35-7.45) ABG pCO2 29.1 mmHg L mmHg (35-45) ABG pO2 84.2 mmHg mmHg (80.0-100.0) ABG HCO3 21.7 mmol/L L mmo l/L (22-26) ABG O2 Saturation 97.5 ABG Base Excess -1.1 mmol/L mmol/ L (-2.0-2.0) [place] Test N/a A-a O2 Gradient 3.5 mmHg L mmHg (5-10) Hematocrit 31.7 % L % (37-47) Hgb O2 Saturation 95.3 % % (95-100) Carboxyhemoglobin 1.4 %THgb %THgb (0.4-20.1) Methemoglobin 0.9 % % (0.4-1.5) Total Hemoglobin 10.3 g/dL L g/dL (12-16) Sodium 138.0 mmol/L mmol /L 136 mmol/L mmol/L (131-143) (136-145) Potassium 2.1 mmol/L L mmol /L 2.2 mmol/L L* mmo l/L (3.5-5.0) (3.5-5.1) Glucose 290.0 mg/dL H mg/ dL 278 mg/dL H mg/dL (70-115) (65-115) Ionized Calcium 1.2 mmol/L mmol/L (1.1-1.4) O2 Delivery Device Room air Sponsorship Manager ID [email or web address] Chloride 99 mmol/L mmol/L (98-107) Carbon Dioxide 21 mmol/L L mmol/ L (22-29) Anion Gap 18.2 (5-19) BUN 13 mg/dL mg/dL (6-20) Creatinine 0.7 mg/dL mg/dL (0.5-0.9) GFR Calculation 92.2 mL/min mL/mi n (90-130) POC Glucose 321 mg/dL H mg/dL (70-110) Calculated Osmolal ity 292 mOsm/kg mOsm/ kg (285-295) Calcium 8.6 mg/dL mg/dL (8.5-10.5) Total Bilirubin 1.5 mg/dL H mg/dL (0.15-1.2) AST 78 U/L H U/L (0-32) ALT 33 U/L U/L (0-33) Alkaline Phosphata se 320 IU/L H IU/L (35-105) Ammonia Total Protein 8.2 g/dL g/dL (6.6-8.7) Albumin 3.7 g/dL g/dL (3.5-5.2) Globulin 4.5 g/dL g/dL (1.3-4.6) TSH 0.02 uIU/mL L uIU /mL (0.27-4.20) Urine Color Urine Appearance Urine pH Ur Specific Gravit y Urine Protein Urine Glucose (UA) Urine Ketones Urine Blood Urine Nitrate Urine Bilirubin Urine Urobilinogen Ur Leukocyte Jody ase Urine RBC Urine WBC Ur Squamous Epith Cells Amorphous Sediment Urine Bacteria Salicylates < 0.3 mg/dL L mg/ dL (3-10) Urine Opiates Scre en Acetaminophen < 5.0 ug/mL L ug/ mL (10-30) Ur Barbiturates Sc reen Ur Phencyclidine S crn Ur Amphetamines Sc reen U Benzodiazepines Scrn Urine Cocaine Scre en U Marijuana (THC) Screen Ethyl Alcohol < 10 mg/dL mg/dL (0-10) 07/27/21 07/27/21 07/27/21 21:00 21:00 22:00 WBC 7.8 10^3/uL 10^3/ uL (4.0-10.0) RBC 4.87 10^6/uL 10^6 /uL (4.1-5.3) Hgb 10.4 g/dL L g/dL (11.5-15.3) Hct 34.6 % L % (37.0-47.0) MCV 71.0 fl L fl (81-99) MCH 21.4 pg L pg (28.0-34.0) MCHC 30.1 g/dL g/dL (30.0-36.0) RDW 20.1 % H % (12.1-15.1) Plt Count 77 10^3/cmm L 10^ 3/cmm (130-400) MPV 9.0 fL fL (7.4-10.4) Neut % (Auto) 54.2 % % Lymph % (Auto) 34.1 % % [place] % (Auto) 10.8 % % Eos % (Auto) 0.4 % % Baso % (Auto) 0.1 % % Neut # (Auto) 4.24 10^3/uL 10^3 /uL (1.8-7.7) Lymph # (Auto) 2.7 10^3/uL 10^3/ uL (0.8-4.8) [place] # (Auto) 0.8 10^3/uL 10^3/ uL (0.2-0.9) Eos # (Auto) 0.0 10^3/uL 10^3/ uL (0.0-0.8) Baso # (Auto) 0.0 10^3/uL 10^3/ uL (0.0-0.1) Nucleated RBC % (a uto) 0 % % Nucleated RBCs # 0.0 /100WBC /100W BC Specimen Type Sample Site ABG pH ABG pCO2 ABG pO2 ABG HCO3 ABG O2 Saturation ABG Base Excess [place] Test A-a O2 Gradient Hematocrit Hgb O2 Saturation Carboxyhemoglobin Methemoglobin Total Hemoglobin Sodium Potassium Glucose Ionized Calcium O2 Delivery Device Sponsorship Manager ID Chloride Carbon Dioxide Anion Gap BUN Creatinine GFR Calculation POC Glucose Calculated Osmolal ity Calcium Total Bilirubin AST ALT Alkaline Phosphata se Ammonia 130 umol/L H umol /L (11-51) Total Protein Albumin Globulin TSH Urine Color Yellow (Yellow) Urine Appearance Clear (CLEAR) Urine pH 7 (5-7) Ur Specific Gravit y 1.010 (1.005-1.030) Urine Protein 1+ H (Negative) Urine Glucose (UA) Norm (Normal) Urine Ketones Negative (Negative) Urine Blood Trace H (Negative) Urine Nitrate Negative (Negative) Urine Bilirubin Neg (Negative) Urine Urobilinogen 4+ mg/dL H mg/dL (Negative) Ur Leukocyte Jody ase Trace H (Negative) Urine RBC Rare /hpf /hpf (0-2) Urine WBC 5-10 /hpf H /hpf (0-5) Ur Squamous Epith Cells 0-4 /hpf H /hpf (0-5) Amorphous Sediment Not Reportable Urine Bacteria 4+ /hpf H /hpf (NONE) Salicylates Urine Opiates Scre en Acetaminophen Ur Barbiturates Sc reen Ur Phencyclidine S crn Ur Amphetamines Sc reen U Benzodiazepines Scrn Urine Cocaine Scre en U Marijuana (THC) Screen Ethyl Alcohol 07/27/21 22:00 WBC RBC Hgb Hct MCV MCH MCHC RDW Plt Count MPV Neut % (Auto) Lymph % (Auto) [place] % (Auto) Eos % (Auto) Baso % (Auto) Neut # (Auto) Lymph # (Auto) [place] # (Auto) Eos # (Auto) Baso # (Auto) Nucleated RBC % (a uto) Nucleated RBCs # Specimen Type Sample Site ABG pH ABG pCO2 ABG pO2 ABG HCO3 ABG O2 Saturation ABG Base Excess [place] Test A-a O2 Gradient Hematocrit Hgb O2 Saturation Carboxyhemoglobin Methemoglobin Total Hemoglobin Sodium Potassium Glucose Ionized Calcium O2 Delivery Device Sponsorship Manager ID Chloride Carbon Dioxide Anion Gap BUN Creatinine GFR Calculation POC Glucose Calculated Osmolal ity Calcium Total Bilirubin AST ALT Alkaline Phosphata se Ammon[place] Total Protein Albumin Globulin TSH Urine Color Urine Appearance Urine pH Ur Specific Gravit y Urine Protein Urine Glucose (UA) Urine Ketones Urine Blood Urine Nitrate Urine Bilirubin Urine Urobilinogen Ur Leukocyte Jody ase Urine RBC Urine WBC Ur Squamous Epith Cells Amorphous Sediment Urine Bacteria Salicylates Urine Opiates Scre en Negative ng/mL ng /mL (Negative) Acetaminophen Ur Barbiturates Sc reen Negative ng/mL ng /mL (Negative) Ur Phencyclidine S crn Negative ng/mL ng /mL (Negative) Ur Amphetamines Sc reen Negative ng/mL ng /mL (Negative) U Benzodiazepines Scrn Negative ng/mL ng /mL (Negative) Urine Cocaine Scre en Negative ng/mL ng /mL (Negative) U Marijuana (THC) Screen Positive ng/mL H ng/mL (Negative) Ethyl Alcohol Imaging Data^: CT Head: Attestation: I personally reviewed and interpreted this imaging study as follows: Radiologist's impression: [facility] [address] [place] [address] CT Scan Report Signed Patient: Gina Jay Unit #: [id number] : 1980 Age/Sex: 41 / F ADM Date: 07/27/21 Loc: ER Room/Bed: Attending Dr: Ordering Provider/Ordering MD: Farzaneh Main MD Date of Service: 07/27/21 Procedure(s): CT head wo con* [id number] Accession Number(s): [id number] Report Number: [id number] PROCEDURE INFORMATION: Exam: CT Head Without Contrast Exam date and time: 07/27/2021 7:42 PM Age: 41 years old Clinical indication: Altered mental status/memory loss; Additional info: AMS TECHNIQUE: Imaging protocol: Computed tomography of the head without contrast. Radiation optimization: All CT scans at this facility use at least one of these dose optimization techniques: automated exposure control; mA and/or kV adjustment per patient size (includes targeted exams where dose is matched to clinical indication); or iterative reconstruction. COMPARISON: CT head wo con* [id number] 03/26/2021 8:40 AM RADIATION DOSE METRICS: Total DLP (mGy-cm): 949.49 FINDINGS: Brain: Normal. No hemorrhage. Unremarkable white matter. No mass effect. Cerebral ventricles: No ventriculomegaly. Paranasal sinuses: Visualized sinuses are unremarkable. No fluid levels. Mastoid air cells: Visualized mastoid air cells are well aerated. Bones/joints: Unremarkable. No acute fracture. Soft tissues: Unremarkable. CT/CT head wo con* [id number] IMPRESSION: No acute intracranial abnormality. Dictated By: Israel Muñoz Signed By: Israel Muñoz Signed Date/Time: 07/27/212051 DD/ 41 CXR: Radiologist's impression: [address] [address] XRay Report Signed Patient: Gina Jay Unit #: [id number] : 1980 Age/Sex: 41 / F ADM Date: 07/27/21 Loc: ER Room/Bed: Attending Dr: Ordering Provider/Ordering MD: Farzaneh Main MD Date of Service: 07/27/21 Procedure(s): XR chest 1V portable [id number] Accession Number(s): [id number] Report Number: [id number] PROCEDURE INFORMATION: Exam: XR Chest Exam date and time: 07/27/2021 7:42 PM Age: 41 years old Clinical indication: Other: AMS TECHNIQUE: Imaging protocol: XR of the chest. Views: 1 view. COMPARISON: CR XR chest 1V portable [id number] 03/26/2021 8:04 AM FINDINGS: Lungs: Unremarkable. No consolidation. Pleural spaces: Unremarkable. No pleural effusion. No pneumothorax. Heart/Mediastinum: Unremarkable. No cardiomegaly. Bones/joints: Unremarkable. XR/XR chest 1V portable [id number] IMPRESSION: No acute findings. Dictated By: Israel Muñoz Signed By: Israel Muñoz Signed Date/Time: 07/27/212055 DD/ 41 EKG Data^: EKG 1: Attestation: I personally reviewed and interpreted this EKG as follows: EKG interpretation date: 07/27/21 EKG interpretation time: 20:02 Interpretation: nsr hr [address] or t wave abnormalities qrs 101 qtc 428 Critical Care Time Critical Care Time: Critical Care Time: Yes Total Critical Care Time: 35 Attestation: The high probability of a clinically significant, sudden or life threatening deterioration of the patient's [] system(s) required my full and direct attention, intervention and personal management. The critical care time is as shown. This time is in addition to time spent performing any reported procedures but includes the following: [x] Data and vital sign review and interpretation [x] Patient assessment, examination and intervention [x] Documentation [x] Medication orders and management Discharge Plan Discharge Patient Disposition: Admitted As Inpatient Clinical Impression: Hypokalemia, Altered mental status, Encephalopathy, Acute cystitis Condition: Stable Coding Level of Care Code ED Clay Structure Builder And Servicer for Lorri Fwd Exam Comprehensive
[2021-07-27 21:12] LABS: Basophils % 0.1 %; Eosinophils % 0.4 %; Hematocrit 34.6 % (37.0-47.0); Hemoglobin 10.4 g/dL (11.5-15.3); Lymphocytes # 2.7 10^3/uL (0.8-4.8); Lymphocytes % 34.1 %; Mean Corpuscular HGB Conc 30.1 g/dL (30.0-36.0); Mean Corpuscular Hemoglobin 21.4 pg (28.0-34.0); Monocytes # 0.8 10^3/uL (0.2-0.9); Monocytes % 10.8 %; Neutrophils # 4.24 10^3/uL (1.8-7.7); Neutrophils % 54.2 %; Nucleated Red Blood Cells % 0 %; Platelet Count 77 10^3/cmm (130-400); Red Blood Count 4.87 10^6/uL (4.1-5.3); Red Cell Distribution Width 20.1 % (12.1-15.1); White Blood Count 7.8 10^3/uL (4.0-10.0)
[2021-07-27 21:16] LABS: ABG PCO2 29.1 mmHg (35-45); ABG PH Result 7.48 (7.35-7.45); Alveolar-Arterial Oxygen Gradi 3.5 mmHg (5-10); Arterial Blood Gas Hematocrit 31.7 % (37-47); Base Excess ABG -1.1 mmol/L (-2.0-2.0); Blood Gas Sample Site Brachial, right; Blood Gas Sample Type Arterial; Carboxyhemoglobin 1.4 %THgb (0.4-20.1); HCO3 ABG 21.7 mmol/L (22-26); HGB O2 Sat 95.3 % (95-100); Ionized Calcium Level - ABG 1.2 mmol/L (1.1-1.4); Methemoglobin 0.9 % (0.4-1.5); Oxygen Device ROOM AIR; Oxygen Saturation ABG 97.5; PO2 ABG 84.2 mmHg (80.0-100.0); Potassium Level - ABG 2.1 mmol/L (3.5-5.0); Total Hemoglobin 10.3 g/dL (12-16)
[2021-07-27 21:20] VITALS: BP 191/97; PULSE 84; RESP 16; O2SAT 95
[2021-07-27] MEDS: labetalol 5 mg/mL SDV 20mL 10 MG IVP (21:26)
[2021-07-27 21:34] LABS: Ammonia 130 umol/L (11-51)
[2021-07-27 22:00] VITALS: BP 191/97; PULSE 72; RESP 17; O2SAT 99
[2021-07-27 22:11] LABS: Alanine Aminotransferase 33 U/L (0-33); Albumin Level 3.7 g/dL (3.5-5.2); Alkaline Phosphatase 320 IU/L (35-105); Anion Gap 18.2 (5-19); Aspartate Amino Transferase 78 U/L (0-32); Blood Urea Nitrogen 13 mg/dL (6-20); Calcium 8.6 mg/dL (8.5-10.5); Carbon Dioxide 21 mmol/L (22-29); Chloride 99 mmol/L (98-107); Globulin 4.5 g/dL (1.3-4.6); Glomerular Filtration Rate 92.2 mL/min (90-130); Glucose 278 mg/dL (65-115); Osmolality Calculated 292 mOsm/kg (285-295); Sodium 136 mmol/L (136-145); Thyroid Stimulating Hormone 0.02 uIU/mL (0.27-4.20); Total Bilirubin 1.5 mg/dL (0.15-1.2); Total Protein 8.2 g/dL (6.6-8.7)
[2021-07-27 22:17] LABS: Acetaminophen < 5.0 ug/mL (10-30); Alcohol Level < 10 mg/dL (0-10); Potassium 2.2 mmol/L (3.5-5.1); Salicylate < 0.3 mg/dL (3-10)
[2021-07-27 22:22] LABS: Glucose Urine UA Norm (Normal); Protein Urine 1+ (Negative); Urine Appearance Clear (CLEAR); Urine Color Yellow (Yellow); pH Urine 7 (5-7)
[2021-07-27 22:23] LABS: Add Urine Culture? Yes; Add Urine Microscopic? YES; Bacteria Urine 4+ /hpf; Bilirubin Urine Neg (Negative); Blood Urine Trace (Negative); Ketones Urine Negative (Negative); Leukocyte Esterase Urine Trace (Negative); Nitrate Urine Negative (Negative); RBC Urine RARE /hpf (0-2); Squamous Epithelial Cell Urine 0-4 /hpf (0-5); Urobilinogen Urine 4+ mg/dL (Negative)
[2021-07-27 22:25] LABS: Amphetamines Screen Urine Negative (Negative); Barbiturates Screen Urine Negative (Negative); Benzodiazepines Screen Urine Negative (Negative); Cocaine Screen Urine Negative (Negative); Opiate Screen Urine Negative (Negative); PCP Screen Urine Negative (Negative); THC Screen Urine Positive (Negative)
[2021-07-27 23:00] VITALS: BP 193/87; PULSE 74; RESP 21; O2SAT 98
[2021-07-27] MEDS: potassium chloride ER 20 mEq Tablet 40 MEQ PO (23:37)
[2021-07-27] MEDS: cefTRIAXone 1,000 MG in sodium chloride 0.9% (plus) 50 ML 100 MG IV (23:37)
[2021-07-27] MEDS: lactulose oral liq 20 gm/30 mL UDC 30 GM PO (23:38)
[2021-07-28] VITALS (12 sets, daily range): BP systolic 144–187; BP diastolic 89–120; PULSE 72–112; RESP 14–20; TEMP 36.6–36.7; O2SAT 95–99; BMI 33.4
[2021-07-28] MEDS: potassium chloride premix 100 ML 25 MEQ IV (00:15)
[2021-07-28] MEDS: sodium chloride 0.9% 500 ML 25 ML IV (00:42)
[2021-07-28] MEDS: labetalol 5 mg/mL SDV 20mL 10 MG IVP (01:07)
--- NOTE | 2021-07-28 03:48 | ECG_ITS ---
[facility] Test Date: 2021-07-28 Pat Name: Gina Jay Department: Room: EDIP Gender: Female Rail Technician: : 1980 Requested By: Farzaneh Main Order Number: [id number] Bridget MD: Edward Slade M.D. Measurements Intervals [place] Rate: 83 P: 41 WA: 160 QRS: 16 QRSD: 94 T: 30 QT: 393 QTc: 464 Interpretive Statements SINUS RHYTHM Compared to ECG 07/27/2021 20:02:08 ST (T wave) deviation no longer present Electronically Signed On 07-28-2021 23:58:13 LAND ACQUISITION SPECIALIST by Edward Slade M.D. [id number]
[2021-07-28] MEDS: labetalol 5 mg/mL SDV 20mL 20 MG IVP (03:51)
[2021-07-28 04:22] LABS: Troponin(5th) Baseline 29 ng/L (0-10)
--- NOTE | 2021-07-28 05:37 | P.HP_ITS ---
Providers/Chief Complaint Admitting Physician: Latrice Frias MD Primary Care Provider: FARHAT Rivera Chief Complaint: AMS History of Present Illness Gina Jay is a 41 year old female a past medical history significant for diabetes mellitus, hypertension, hypothyroidism, and polysubstance abuse, supposedly on Suboxone as outpatient, MSSA septicemia in January 2021, issues with chronic back pain for which CT of the spine was performed in March 2021 to rule out discitis, further MRI was recommended, it appears patient had refused the study. She presents to the emergency room today with altered mental status. Reportedly she was given Narcan by the EMS after which patient became much more alert and awake. At the time of presentation to the ER she was alert and orient ed x3. However at the time of my assessment at around 3:30 AM initially, she was confused, lethargic, pupils mid dilated, able to only state her name correctly. Did not know that she was in a hospital or why she is here. Urine drug screen today is positive for marijuana, negative for salicylates and acetaminophen. Ammonia elevated at 130. TSH low at 0.02. CT head without acute intracranial abnormality. Chest x-ray with clear lungs, no consolidation. Review of Systems General: Reports: 10 or more systems reviewed and unremarkable except in HPI and below Const: Denies: fever(s), chills or body aches Eyes: Denies: change in vision, blurry vision or photophobia ENMT: Reports: hoarseness; Denies: throat pain, enlarged tonsils, odynophagia or nasal congestion Card: Denies: chest pain, palpitations, irregular heart rhythm, edema, swelling of feet/ankles, lightheadedness, pre-syncope, dyspnea on exertion or orthopnea Resp: Denies: dyspnea, productive cough, non-productive cough, wheezing, stridor, pain on inspiration, change in phlegm color, hemoptysis or chest congestion GI: Denies: abdominal pain, nausea, vomiting, hematemesis, coffee ground emesis, dysphagia, heartburn, diarrhea, constipation, GI cramping, change in sto ol character, hematochezia or melena : Denies: flank pain, difficulty voiding, dysuria, urinary frequency, urinary urgency, urinary hesitancy or hematuria Musc: Denies: neck pain, back pain, extremity pain, joint swelling, joint warmth or deformity Neuro: Denies: headache(s), numbness in extremities, weakness in extremities, sensory changes, difficulty walking, frequent falls, dizziness, vertigo, behavioral changes, Slurred speech present or seizure-like activity Psych: Denies: anxiety, depression, suicidal ideation or homicidal ideation Endo: Denies: polyuria, polydipsia, tired all the time, cold intolerance or hot flashes Patricio/Lymph: Denies: easy bruising or easy bleeding Medications/Allergies Home Medications Medication Instructions Recorded Confirmed Last Taken Type blood sugar diagnostic #100 ea 10/14/20 05/26/21 Unknown Rx Lantus Solostar U-100 Insulin 20 unit SUBCUT QAM 02/20/21 05/26/21 Unknown History insulin aspart U-100 [Novolog See Rx Instructions .ROUTE .COMPLEX 02/20/21 05/26/21 Unknown History Flexpen U-100 Insulin] Suboxone 1 film SUBLINGUAL TID 03/26/21 05/26/21 Unknown History bisacodyl 5 mg PO PRN 03/26/21 05/26/21 Unknown History fluoxetine 40 mg PO DAILY 03/26/21 05/26/21 Unknown History sennosides [Senna Lax] 8.6 mg PO DAILY #30 tab 03/30/21 05/26/21 Unknown Rx folic acid 1 mg tablet 1 mg PO DAILY 05/26/21 05/26/21 Unknown History pen needle, diabetic 29 gauge x #100 ea 05/26/21 05/26/21 Unknown History 1/2 potassium chloride 10 mEq 10 meq PO DAILY cap 05/26/21 05/26/21 Unknown History capsule,extended release vitamin with calcium 1 tab PO DAILY tab 05/26/21 05/26/21 Unknown History no.72-iron 27 mg-folic acid 1 mg tablet thiamine HCl (vitamin B1) 100 mg 100 mg PO DAILY tab 05/26/21 05/26/21 Unknown History tablet cyclobenzaprine 5 mg tablet 5 mg PO BID PRN 30 Days #60 tab 06/19/21 Unknown Rx furosemide 20 mg tablet 20 mg PO DAILY #30 tab 06/19/21 Unknown Rx gabapentin 300 mg capsule 300 mg PO DAILY 30 Days #30 cap 06/19/21 Unknown Rx lactulose 10 gram/15 mL oral 45 ml PO DAILY PRN #473 ml 06/19/21 Unknown Rx solution levothyroxine 100 mcg tablet 100 mcg PO DAILY #30 tab 06/19/21 Unknown Rx naproxen 500 mg tablet 500 mg PO BID 30 Days #60 tab 06/19/21 Unknown Rx propranolol 40 mg tablet 40 mg PO BID #30 tab 06/19/21 Unknown Rx Allergies Allergy/AdvReac Type Severity Reaction Status Date / Time iodine Allergy Mild unknown Verified 07/27/21 19:50 Sulfa (Sulfonamide Allergy Mild rash Verified 07/27/21 19:50 Antibiotics) PFSH Acute PFSH: Medical History Abdominal pain Adjustment reaction with anxiety and depression Alcohol use disorder Anemia Anxiety with depression Bipolar disorder Borderline personality disorder Cholelithiasis Congestive heart failure Cystitis Diabetes mellitus, type II Drug-induced psychotic disorder FH: breast cancer in first degree relative H/O chronic hepatitis Hepatic encephalopathy Hypertension Hypertension screen Hypothyroid Meningitis Metabolic encephalopathy Methamphetamine abuse Muscle spasm Obstructive sleep apnea Opiate dependence 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 Pneumonia Polysubstance abuse Polysubstance abuse Respiratory failure with hypoxia Sepsis Staphylococcus aureus bacteremia Vitamin D deficiency Yeast dermatitis Surgical History History of Social History Smoking and tobacco status: never smoked Second hand smoke exposure: No Smoking risk assessment/counseling performed?: No Alcohol intake: never Desire information about alcohol rehabilitation?: No Counseling given: No Desire information about substance/drug rehabilitation?: No Counseling given: No Female Reproductive History: Date of last menstrual period: 10/23/20 Vitals/I&O/Wt Last Vital Signs Pulse 84 07/27/21 21:20 Resp 16 07/27/21 21:20 BP 191/97 07/27/21 21:20 Pulse Ox 95 07/27/21 21:20 07/27/21 07/27/21 07/28/21 14:59 22:59 06:59 Intake Total 50 / 50 Balance 50 / 50 Weight last 48 hrs Weight 99.79 kg Physical Exam Narrative: EXAM NARRATIVE: General: lethargic, wakes up to calling name, states her correct name but otherwise disoriented to time and place HEENT: PERRLA, pupils bilaterally equal, mid dilated and reactive, pallors not present Chest: Normal vesicular breath sounds, no added sounds, equal good air entry bilaterally CVS: S1-S2 regular, no murmurs, no tachycardia, no gallops, no rubs Abdomen: Soft, nontender, no organomegaly, bowel sounds present Neuro: lethargic, moving all extremities in bed, lip smacking movements noted ?tardive dyskinesia Extremities:no edema, clubbing or cyanosis Data : 07/27/21 21:00 07/28/21 07:10 A&P Assessment and plan (1) Hypokalemia: Status: Acute (2) Altered mental status: Status: Acute (3) Encephalopathy: Status: Acute (4) Acute cystitis: Status: Acute Additional A&P Information Patient presenting overnight with chief complaints of altered mental status noted by family over the last 3 to 4 days. No current history available from the patient at this time due to lethargy, oriented only to self at this time. Altered mental status appears to be related to encephalopathy, differentials at this time include hepatic encephalopathy given elevated ammonia at 130 versus possible drug overdose given initial response to Narcan. No current respiratory distress, saturating 96% on room air. Pupils at this time are dilated. Patient wakes up easily to calling name, however otherwise disoriented. CT head without acute intracranial events. U tox positive for marijuana, Ethyl alcohol level less than 10. Start lactulose 20 g every 6 hours, titrate to 4-5 bowel movements per day. Additionally start rifaximin monitor for improvement in mentation. Mildly elevated transaminases, T bili 1.4, CT abdomen from March 2021 without any noted cirrhosis. Hepatic steatosis was seen with normal portal vein. Mildly hydropic gallbladder with small stones noted at the time. No current signs of acute cholecystitis. Hepatitis C screening positive, will likely need outpatient follow-up. Hypokalemia, potassium as low as 2.2, supplement intravenously. Hypomagnesemia, supplemented intravenously with 1 g IV mag. UA positive for nitrate, ceftriaxone 1 g IV every 24 started empirically History of MSSA septicemia January 2021, source unclear at the time, however appeared to be related to history of IV drug use. Endocarditis was ruled out with RENEE. Patient has also been complaining of chronic back pain since then. Small foci of air within the disc of L4-L5 and L5-S1 were noted also along the right psoas and posterior soft tissues of the lumbar spine, this was thought to be related to lumbar puncture that was attempted prior to this CAT scan. An MRI to rule out discitis was refused by the patient. This would need to be reconsidered most likely if blood cultures return positive on this current admission and or patient continues to complain of back pain. I am unable to assess for her current symptoms in this regard due to altered mental status. Attestations Medical Necessity Statement*: Anticipate greater than 2 midnight admission will be required for evaluation and management of acute encephalopathy, likely hepatic encephalopathy vs substance abuse, evaluation ongoing. 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
--- NOTE | 2021-07-28 05:48 | ECG_ITS ---
[facility] Test Date: 2021-07-28 Pat Name: Gina Jay Department: Room: EDIP Gender: Female Manager Of Broadcast Content: : 1980 Requested By: Farzaneh Main Order Number: [id number] Bridget MD: Edward Slade M.D. Measurements Intervals [place] Rate: 81 P: 28 ID: 160 QRS: 7 QRSD: 101 T: 13 QT: 425 QTc: 494 Interpretive Statements SINUS RHYTHM Compared to ECG 07/28/2021 04:05:29 No significant changes Electronically Signed On 07-29-2021 0:09:35 INTEGRATED CIRCUIT DESIGN ENGINEER by Edward Slade M.D. [id number]
[2021-07-28] MEDS: lactulose oral liq 20 gm/30 mL UDC PO ×2 (06:07→12:20)
[2021-07-28 07:48] LABS: Alanine Aminotransferase 33 U/L (0-33); Albumin Level 3.7 g/dL (3.5-5.2); Alkaline Phosphatase 315 IU/L (35-105); Anion Gap 21.3 (5-19); Aspartate Amino Transferase 83 U/L (0-32); Blood Urea Nitrogen 12 mg/dL (6-20); Calcium 8.5 mg/dL (8.5-10.5); Carbon Dioxide 16 mmol/L (22-29); Chloride 104 mmol/L (98-107); Globulin 4.6 g/dL (1.3-4.6); Glomerular Filtration Rate 92.2 mL/min (90-130); Glucose 298 mg/dL (65-115); Osmolality Calculated 299 mOsm/kg (285-295); Sodium 139 mmol/L (136-145); Total Bilirubin 1.4 mg/dL (0.15-1.2); Total Protein 8.3 g/dL (6.6-8.7); Troponin 5 2HR 26.12 ng/L (0-10)
[2021-07-28 07:50] LABS: Troponin 5 2HR Delta -2.88 ABS# (0-10)
[2021-07-28 07:53] LABS: Potassium 2.3 mmol/L (3.5-5.1)
[2021-07-28 07:56] LABS: Free T4 Free Thyroxine 1.72 ng/dL (0.82-1.77); T3 Free 3.5 PG/ML (2.0-4.4)
[2021-07-28 08:19] LABS: Magnesium 1.4 mg/dL (1.7-2.3)
[2021-07-28] MEDS: thiamine 100 mg Tablet PO (08:56)
[2021-07-28] MEDS: amlodipine 10 mg Tablet PO (08:56)
[2021-07-28] MEDS: lidocaine 1% 5 ML in potassium chloride premix 100 ML 25 ML IV ×2 (09:03→19:49)
[2021-07-28 09:09] LABS: Glucose Point of Care 333 mg/dL (70-110)
[2021-07-28] MEDS: insulin lispro 100 unit/1 mL SUBCUT ×4 (09:15→22:25)
[2021-07-28] MEDS: propranolol 40 mg Tablet PO ×2 (09:30→19:53)
[2021-07-28] MEDS: folic acid 1 mg Tablet PO (09:31)
--- NOTE | 2021-07-28 09:48 | ECG_ITS ---
[facility] Test Date: 2021-07-28 Pat Name: Gina Jay Department: Room: EDIP Gender: Female Metal Cans Supervisor: : 1980 Requested By: Farzaneh Main Order Number: [id number] Bridget MD: Edward Slade M.D. Measurements Intervals [place] Rate: 83 P: 24 LA: 151 QRS: 8 QRSD: 102 T: 4 QT: 407 QTc: 480 Interpretive Statements SINUS RHYTHM POSSIBLE LEFT VENTRICULAR HYPERTROPHY [VOLTAGE CRITERIA PLUS LAE OR QRS WIDENING] MINIMAL ST DEPRESSION [0.025+ mV ST DEPRESSION] Compared to ECG 07/28/2021 05:58:47 ST (T wave) deviation now present Electronically Signed On 07-29-2021 0:13:10 TANK CAR RECONDITIONER by Edward Slade M.D. [id number]
[2021-07-28 11:07] LABS: Troponin 5 6HR 20.32 ng/L (0-10)
[2021-07-28 11:18] LABS: Glucose Point of Care 342 mg/dL (70-110)
[2021-07-28 15:16] LABS: Alanine Aminotransferase 34 U/L (0-33); Albumin Level 3.6 g/dL (3.5-5.2); Alkaline Phosphatase 306 IU/L (35-105); Aspartate Amino Transferase 77 U/L (0-32); Blood Urea Nitrogen 10 mg/dL (6-20); Calcium 8.4 mg/dL (8.5-10.5); Carbon Dioxide 16 mmol/L (22-29); Chloride 105 mmol/L (98-107); Creatinine Clr Calc Pharmacy 152.4362; Globulin 4.2 g/dL (1.3-4.6); Glomerular Filtration Rate 110.2 mL/min (90-130); Glucose 147 mg/dL (65-115); Osmolality Calculated 288 mOsm/kg (285-295); Sodium 138 mmol/L (136-145); Total Bilirubin 1.2 mg/dL (0.15-1.2); Total Protein 7.8 g/dL (6.6-8.7)
[2021-07-28 15:21] LABS: Anion Gap 19.6 (5-19); Potassium 2.6 mmol/L (3.5-5.1)
--- NOTE | 2021-07-28 16:33 | CTR_ITS ---
PROCEDURE INFORMATION: Exam: CT Abdomen And Pelvis Without Contrast Exam date and time: 07/28/2021 4:33 PM Age: 41 years old Clinical indication: Abnormal findings; Additional info: Elevated alkphos, lft TECHNIQUE: Imaging protocol: Computed tomography of the abdomen and pelvis without contrast. COMPARISON: CR (CHEST, ) 07/27/2021 7:49 PM RADIATION DOSE METRICS: Total DLP (mGy-cm): 2221.31 FINDINGS: Lungs: Bibasilar subsegmental atelectasis is appreciated. Heart: The heart is normal in size. Liver: Normal. No mass. Gallbladder and bile ducts: A small gallstone is present in the distended gallbladder. No biliary ductal dilatation. Pancreas: Normal. No ductal dilation. Spleen: Normal. No splenomegaly. Adrenal glands: Normal. No mass. Kidneys and ureters: Small renal stones are present in both kidneys. No ureteral stone or hydronephrosis. Stomach and bowel: The colon is mildly distended with fluid, air and a small amount of stool raising the possibility of a diarrheal process. No intestinal obstruction. Appendix: The appendix is normal. Intraperitoneal space: Unremarkable. No free air. No significant fluid collection. Vasculature: Unremarkable. No abdominal aortic aneurysm. Lymph nodes: Unremarkable. No enlarged lymph nodes. Urinary bladder: A tiny focus of air is present in the urinary bladder which may be due to recent catheterization. Reproductive: The uterus and ovaries appear normal. Bones/joints: Extensive erosive changes are seen in the lumbosacral spine region involving the L4, L5 and S1 vertebral bodies. Chronic versus pathologic fractures of the L5 and S1 vertebral bodies appreciated. Vacuum phenomenon is present in the L4-L5 and L5-S1 disc spaces. Soft tissues: Unremarkable. CT/CT abdomen pelvis wo con [id number] IMPRESSION: 1. Cholelithiasis. Gallbladder ultrasound may allow further assessment. 2. Nephrolithiasis. No ureteral stone or hydronephrosis. 3. Lumbosacral spine erosive changes with pathologic versus chronic fracture deformities of L5 and S1. Erosive arthritis, osteomyelitis, neoplastic process are considerations. MRI of the lumbar spine with contrast is recommended.
--- NOTE | 2021-07-28 16:48 | P.PN_ITS ---
Subjective Subjective: Interval history: Patient was seen this morning, she sitting up to the side of the bed, in the emergency room she is alert to person, to place, not time, she knows where she lives, she knows her name, she keeps sticking out her tongue, she keeps yawning, she is very restless, she is removed her underpants, she tells me that because she accidentally soiled herself, refuses to wear a gown, she tells me that she feels too hot in the room, she denies any drug use, denies alcohol consumption, she tells me currently her back is hurting her Vitals/I&O/Wt Last Vital Signs Pulse 82 07/28/21 11:07 Resp 17 07/28/21 11:06 BP 169/89 07/28/21 11:07 Pulse Ox 96 07/28/21 11:07 07/28/21 07/28/21 07/28/21 06:59 14:59 22:59 Intake Total 150 / 150 105 / 105 52 / 157 Balance 150 / 150 105 / 105 52 / 157 Weight last 48 hrs Weight 99.79 kg Physical Exam Narrative: EXAM NARRATIVE: Alert to person, to place, not to time, follows commands, keeps yawning, sticking out her tongue, is quite restless, sitting at the side of the bed Resp: COMMON NORMALS: normal respiratory effort, No retractions, No use of accessory muscles and clear to auscultation bilaterally AUSCULTATION: clear to auscultation bilaterally Cardio: COMMON NORMALS: regular rate, regular rhythm, S1 normal heart sound present, S2 normal heart sound present and No murmurs present (Cardio) RATE: regular rate RHYTHM: regular rhythm HEART SOUNDS: S1 normal heart sound present and S2 normal heart sound present GI: COMMON NORMALS: Normal to inspection, nondistended, normoactive bowel sounds present, Soft to palpation and non-tender PALPATION: Yes Soft to palpation Back/Pelvis: LUMBAR SPINE/LOWER BACK: Yes normal to inspection, Yes pain with ROM and Yes paraspinal muscle tenderness Extremity: COMMON NORMALS: no pedal edema Data : 07/27/21 21:00 07/28/21 14:54 Micro: Microbiology 07/28/21 07:15 Blood Culture - Preliminary Blood SPECIMEN COLLECTED 07/28/21 07:10 Blood Culture - Preliminary Blood SPECIMEN COLLECTED A&P Assessment and plan (1) Hypokalemia: Status: Acute (2) Altered mental status: Status: Acute (3) Encephalopathy: Status: Acute (4) Acute cystitis: Status: Acute (5) Anemia: Status: Acute (6) Hypertension: Status: Acute Qualifiers: Hypertension type: essential hypertension Qualified Code(s): I10 - Essential (primary) hypertension (7) Diabetes mellitus, type II: Status: Acute Qualifiers: Diabetes mellitus longterm insulin use: unspecified longterm insulin use status Diabetes mellitus complication status: with other specified complication Qualified Code(s): E11.69 - Type 2 diabetes mellitus with other specified complication (8) Lumbar back pain with radiculopathy affecting lower extremity: Status: Acute (9) Thrombocytopenia: Status: Acute (10) Acute hepatitis C: Status: Acute (11) Hypothyroid: Status: Acute Qualifiers: Hypothyroidism type: acquired Qualified Code(s): E03.9 - Hypothyroidism, unspecified (12) Hepatic encephalopathy: Status: Acute Additional A&P Information Patient presenting overnight with chief complaints of altered mental status noted by family over the last 3 to 4 days. Currently alert to person, to place, not to time, follows commands, complaining of lower back pain Altered mental status appears to be related to encephalopathy, differentials at this time include hepatic encephalopathy given elevated ammonia at 130 versus possible drug overdose given initial response to Narcan. CT head without acute intracranial events. U tox positive for marijuana, Ethyl alcohol level less than 10. Start lactulose 20 g every 6 hours, titrate to 4-5 bowel movements per day. Additionally start rifaximin monitor for improvement in mentation. Mildly elevated transaminases, T bili 1.4, CT abdomen from March 2021 without any noted cirrhosis. Hepatic steatosis was seen with normal portal vein. Mildly hydropic gallbladder with small stones noted at the time. No current signs of acute cholecystitis. Hepatitis C screening positive, will likely need outpatient follow-up. Has elevated alk phos, elevated LFTs, will repeat CT scan abdomen pelvis Hypokalemia, potassium as low as 2.2, supplement intravenously. Hypomagnesemia, supplemented intravenously with 1 g IV mag. UA positive for nitrate, ceftriaxone 1 g IV every 24 started empirically Thrombocytopenia, likely secondary acute hep C Anemia, likely sec to acute hep C lower back pain, Will avoid narcotic pain medications, CT scan as above, ESR, pro-Roland, CRP History of MSSA septicemia January 2021, source unclear at the time, however appeared to be related to history of IV drug use. Endocarditis was ruled out with RENEE. Patient has also been complaining of chronic back pain since then. Small foci of air within the disc of L4-L5 and L5-S1 were noted also along the right psoas and posterior soft tissues of the lumbar spine, this was thought to be related to lumbar puncture that was attempted prior to this CAT scan. An MRI to rule out discitis was refused by the patient. This would need to be reconsidered most likely if blood cultures return positive on this current admission and or patient continues to complain of back pain. I am unable to assess for her current symptoms in this regard due to altered mental status. Attestations Medical Necessity Statement*: Patient requires hospitalization for hypokalemia, altered mental status, UTI, back pain hyperammonemia, hepatic encephalopathy Coding Level of Care Code Acute Project Construction Assistant Manager for [facility] Diagnoses Hypokalemia E87.6 Altered mental status R41.82 Encephalopathy G93.40 Acute cystitis N30.00 Anemia D64.9 Hypertension I10 Hypertension type: essential hypertension Diabetes mellitus, type II E11.69 Diabetes mellitus parts counterman insulin use: unspecified parts counterman insulin use status Diabetes mellitus complication status: with other specified complication Lumbar back pain with radiculopathy affecting lower extremity M54.16 Thrombocytopenia D69.6 Acute hepatitis C B17.10 Hypothyroid E03.9 Hypothyroidism type: acquired Hepatic encephalopathy K72.90
[2021-07-28 17:23] LABS: Erythrocyte Sedimentation Rate 82 mm/hr (0-15)
[2021-07-28] MEDS: potassium chloride ER 20 mEq Tablet 40 MEQ PO (17:35)
[2021-07-28 17:40] LABS: C Reactive Protein 10.7 mg/L (0.0-4.9); Gamma Glutamyl Transferase 380 U/L (5-36); Lipase 32 U/L (13-60)
[2021-07-28 18:39] LABS: Glucose Point of Care 164 mg/dL (70-110)
[2021-07-28 19:45] LABS: Estmated Average Glucose 258; Hemoglobin A1C 10.6 % (4.0-6.0)
[2021-07-28] MEDS: cloNIDine 0.1 mg Tablet PO (19:48)
--- NOTE | 2021-07-28 20:03 | PC.NURSE ---
Shift report received from Bre PURCELL. Patient up to BR. Valentin present. Confusion present/ A/O x 1. No other needs noted at this time.
[2021-07-28 21:25] LABS: Anion Gap 17.7 (5-19); Blood Urea Nitrogen 10 mg/dL (6-20); Calcium 8.5 mg/dL (8.5-10.5); Carbon Dioxide 16 mmol/L (22-29); Chloride 103 mmol/L (98-107); Creatinine Clr Calc Pharmacy 152.4362; Glomerular Filtration Rate 110.2 mL/min (90-130); Glucose 193 mg/dL (65-115); Magnesium 1.4 mg/dL (1.7-2.3); Osmolality Calculated 282 mOsm/kg (285-295); Phosphorus 2.9 mg/dL (2.5-4.5); Sodium 134 mmol/L (136-145)
[2021-07-28 21:27] LABS: Potassium 2.7 mmol/L (3.5-5.1)
[2021-07-28 21:38] LABS: Glucose Point of Care 226 mg/dL (70-110)
--- NOTE | 2021-07-28 23:14 | PC.NURSE ---
Update provided to mercy Altman./ [phone]
--- NOTE | 2021-07-28 23:17 | PC.NURSE ---
notified by charge nurse Yancy PURCELL of potassium 2.7/ IV potassium infusing at this time/ order for recheck at 0400 07/29/2021
[2021-07-29] VITALS (8 sets, daily range): BP systolic 132–156; BP diastolic 78–93; PULSE 72–79; RESP 17–20; TEMP 36.6–37.1; O2SAT 95–100
[2021-07-29] MEDS: lactulose oral liq 20 gm/30 mL UDC PO ×5 (00:31→23:03)
[2021-07-29] MEDS: cefTRIAXone 1,000 MG in sodium chloride 0.9% (plus) 50 ML 100 MG IV (00:31)
[2021-07-29 06:55] LABS: Basophils % 0.1 %; Eosinophils # 0.1 10^3/uL (0.0-0.8); Eosinophils % 1.4 %; Hematocrit 33.7 % (37.0-47.0); Hemoglobin 9.9 g/dL (11.5-15.3); Lymphocytes # 2.6 10^3/uL (0.8-4.8); Lymphocytes % 36.3 %; Mean Corpuscular HGB Conc 29.4 g/dL (30.0-36.0); Mean Corpuscular Hemoglobin 21.2 pg (28.0-34.0); Mean Platelet Volume 9.5 fL (7.4-10.4); Monocytes # 0.9 10^3/uL (0.2-0.9); Neutrophils # 3.57 10^3/uL (1.8-7.7); Neutrophils % 49.9 %; Nucleated Red Blood Cells % 0 %; Platelet Count 96 10^3/cmm (130-400); Red Blood Count 4.68 10^6/uL (4.1-5.3); Red Cell Distribution Width 20.9 % (12.1-15.1); White Blood Count 7.2 10^3/uL (4.0-10.0)
[2021-07-29 06:56] LABS: Glucose Point of Care 202 mg/dL (70-110)
[2021-07-29 07:14] LABS: Ammonia 91 umol/L (11-51)
[2021-07-29 07:15] LABS: Alanine Aminotransferase 32 U/L (0-33); Albumin Level 3.6 g/dL (3.5-5.2); Alkaline Phosphatase 284 IU/L (35-105); Aspartate Amino Transferase 78 U/L (0-32); Blood Urea Nitrogen 9 mg/dL (6-20); Calcium 8.8 mg/dL (8.5-10.5); Carbon Dioxide 17 mmol/L (22-29); Chloride 106 mmol/L (98-107); Globulin 4.2 g/dL (1.3-4.6); Glucose 184 mg/dL (65-115); Magnesium 1.5 mg/dL (1.7-2.3); Osmolality Calculated 287 mOsm/kg (285-295); Phosphorus 2.8 mg/dL (2.5-4.5); Sodium 137 mmol/L (136-145); Total Bilirubin 1.6 mg/dL (0.15-1.2); Total Protein 7.8 g/dL (6.6-8.7)
[2021-07-29 07:26] LABS: Creatine Phosphokinase 31 U/L (26-192); NT Pro B Type Natriuretic Pept 197 pg/mL (0-125)
[2021-07-29] MEDS: propranolol 40 mg Tablet PO ×2 (09:08→18:31)
[2021-07-29] MEDS: cloNIDine 0.1 mg Tablet PO ×2 (09:08→18:32)
[2021-07-29] MEDS: levothyroxine 100 mcg Tablet PO (09:08)
[2021-07-29] MEDS: insulin lispro 100 unit/1 mL SUBCUT ×3 (09:08→18:33)
[2021-07-29] MEDS: folic acid 1 mg Tablet PO (09:08)
[2021-07-29] MEDS: thiamine 100 mg Tablet PO (09:08)
[2021-07-29] MEDS: amlodipine 10 mg Tablet PO (09:08)
[2021-07-29] MEDS: LORazepam 2 mg/mL INJ 1 mL 1 MG IM (10:21)
[2021-07-29] MEDS: HYDROmorphone 1 mg/mL INJ 1 mL IVP (10:21)
--- NOTE | 2021-07-29 11:00 | PC.NURSE ---
Patient went to MRI and refused the procedure after being transported to the facility. Patient resting in room with one on one sitter in room.
[2021-07-29 11:28] LABS: Glucose Point of Care 180 mg/dL (70-110)
--- NOTE | 2021-07-29 15:49 | CTR_ITS ---
PROCEDURE INFORMATION: Exam: CT Lumbar Spine Without Contrast Exam date and time: 07/29/2021 3:49 PM Age: 41 years old Clinical indication: Low back pain; Additional info: Lower lumbar pain TECHNIQUE: Imaging protocol: Computed tomography images of the lumbar spine without contrast. Radiation optimization: All CT scans at this facility use at least one of these dose optimization techniques: automated exposure control; mA and/or kV adjustment per patient size (includes targeted exams where dose is matched to clinical indication); or iterative reconstruction. COMPARISON: CT abdomen pelvis wo con [id number] 07/28/2021 4:52 PM RADIATION DOSE METRICS: Total DLP (mGy-cm): 2474.72 FINDINGS: Vertebrae: Destructive endplate changes at L4-L5 with lucencies extending into the inferior and posterior L4 vertebral body. Destructive lucencies in the superior endplate of L5 with cortical and medullary destruction in the anterior L5 vertebral body. Mild pathologic fracture in superior L5. Partial endplate destruction in the posterior right L5 vertebral body and the L5-S1 endplates on the left. Destructive lytic lesion in the anterior S1 segment of the sacrum extending to the posterior cortex. Suspected thickening of the anterior epidural space along the L4 and L5 vertebral bodies. This appears to narrow the thecal sac. L1-L2: No significant disc protrusion. No severe spinal canal stenosis. No significant neural foraminal narrowing. L2-L3: Circumferential disc bulge. Mild bilateral foraminal stenosis. Mild central canal stenosis. L3-L4: Circumferential disc bulge. Moderate left and mild right foraminal stenosis. Mild central canal stenosis. L4-L5: Severe disc space narrowing with circumferential disc bulge. Moderate left and severe right foraminal stenosis. Moderate-severe central canal stenosis. L5-S1: Disc space narrowing with vacuum disc. Mild disc bulge. Severe bilateral foraminal stenosis. No central canal stenosis. Soft tissues: Thin rim of soft tissue thickening surrounding the inferior L4, L5, and anterior S1 regions. CT/CT lumbar spine wo con* [id number] IMPRESSION: 1. Destructive endplate changes at L4-L5 and L5-S1 with destructive lytic lesions in the L4, L5, and S1 bodies. This is felt to most likely represent osteomyelitis discitis, as it crosses the disc spaces. A malignant neoplastic process is considered much less likely. 2. Thickening of the ventral epidural space at L4-L5 is suspicious for an epidural abscess. 3. Mild pathologic fracture of superior L5. 4. Follow-up of these findings with MRI without and with IV gadolinium is recommended.
--- NOTE | 2021-07-29 16:42 | PC.NURSE ---
Patient's mother called whom the patient lives with and stated that the patient has been known to take drugs in the recent past and was concerned that the patient was positive this hospital stay. The patient's mother also was concerned that the patient going to overdose on drugs. Assured mother of the tox screen and updated her on patient's condition.
[2021-07-29 17:00] LABS: Glucose Point of Care 192 mg/dL (70-110)
--- NOTE | 2021-07-29 17:17 | P.PN_ITS ---
Subjective Subjective: Interval history: Patient was seen this morning, he sitting up to the side of the bed, her main complaint is lower back pain, she tells me that she continues to have lower back pain, radiating down her right leg, I advised patient that we will do an MRI today, she is alert to person, to place, and to time, her mentation has significantly improved Vitals/I&O/Wt Last Vital Signs Temp 98.5 F 07/29/21 15:41 Pulse 76 07/29/21 15:41 Resp 17 07/29/21 15:41 BP 156/93 07/29/21 15:41 Pulse Ox 100 07/29/21 15:41 07/29/21 07/29/21 07/29/21 06:59 14:59 22:59 Intake Total 515 / 1412 120 / 120 Balance 515 / 1412 120 / 120 Weight last 48 hrs Weight 99.79 kg Weight 99.79 kg Physical Exam Const: COMMON NORMALS: no acute distress and patient oriented x3 Resp: COMMON NORMALS: normal respiratory effort, No retractions, No use of accessory muscles and clear to auscultation bilaterally AUSCULTATION: clear to auscultation bilaterally Cardio: COMMON NORMALS: regular rate, regular rhythm, S1 normal heart sound present and S2 normal heart sound present RATE: regular rate RHYTHM: regular rhythm HEART SOUNDS: S1 normal heart sound present and S2 normal heart sound present GI: COMMON NORMALS: Normal to inspection, nondistended, normoactive bowel so unds present, Soft to palpation and non-tender PALPATION: Yes Soft to palpation Back/Pelvis: LUMBAR SPINE/LOWER BACK: Yes pain with ROM, Yes lumbar spinal tenderness and Yes paraspinal muscle tenderness Extremity: COMMON NORMALS: no pedal edema Neuro: COMMON NORMALS: patient oriented x3 Psych: COMMON NORMALS: mental status grossly normal Data : 07/29/21 06:45 07/29/21 06:45 Micro: Microbiology 07/29/21 16:10 Blood Culture - Preliminary Blood SPECIMEN COLLECTED 07/29/21 16:04 Blood Culture - Preliminary Blood SPECIMEN COLLECTED 07/27/21 22:00 Urine Culture - Preliminary Urine,Clean Catch Gram Negative Rods 07/28/21 07:10 Blood Culture - Preliminary Blood 07/28/21 07:15 Blood Culture - Preliminary Blood NEGATIVE TO DATE A&P Assessment and plan (1) Hypokalemia: Status: Acute (2) Altered mental status: Status: Acute (3) Encephalopathy: Status: Acute (4) Acute cystitis: Status: Acute (5) Anemia: Status: Acute (6) Hypertension: Status: Acute Qualifiers: Hypertension type: essential hypertension Qualified Code(s): I10 - E ssential (primary) hypertension (7) Diabetes mellitus, type II: Status: Acute Qualifiers: Diabetes mellitus terminal operations supervisor insulin use: unspecified terminal operations supervisor insulin use status Diabetes mellitus complication status: with other specified complication Qualified Code(s): E11.69 - Type 2 diabetes mellitus with other specified complication (8) Lumbar back pain with radiculopathy affecting lower extremity: Status: Acute (9) Thrombocytopenia: Status: Acute (10) Acute hepatitis C: Status: Acute (11) Hypothyroid: Status: Acute Qualifiers: Hypothyroidism type: acquired Qualified Code(s): E03.9 - Hypothyroidism, unspecified (12) Hepatic encephalopathy: Status: Acute Additional A&P Information Patient presenting overnight with chief complaints of altered mental status noted by family over the last 3 to 4 days. Currently alert to person, to place, not to time, follows commands, complaining of lower back pain Altered mental status appears to be related to encephalopathy, differentials at this time include hepatic encephalopathy given elevated ammonia at 130 versus possible drug overdose given initial response to Narcan. CT head without acute intracranial events. U tox positive for marijuana, Ethyl alcohol level less than 10. Ammonia level 91, continue t lactulose 20 g every 6 hours, titrate to 4-5 bowel movements per day. Additionally start rifaximin monitor for improvement in mentation. Mildly elevated transaminases, T bili 1.4, CT abdomen from March 2021 without any noted cirrhosis. Hepatic steatosis was seen with normal portal vein. Mildl y hydropic gallbladder with small stones noted at the time. No current signs of acute cholecystitis. Hepatitis C screening positive, will likely need outpatient follow-up. Has elevated alk phos, elevated LFTs, repeat CAT scan of the abdomen shows cholelithiasis, Hypokalemia, potassium as low as 3.0 supplement p.o. Hypomagnesemia, stable, supplemented intravenously with 1 g IV mag. UA positive for nitrate, ceftriaxone 1 g IV every 24 started empirically Thrombocytopenia, likely secondary acute hep C Anemia, likely sec to acute hep C lower back pain, Will avoid narcotic pain medications, CT scan as of the abdomen pelvis shows Lumbosacral spine erosive changes with pathologic versus chronic fracture deformities of L5 and S1. Erosive arthritis, osteomyelitis, neoplastic process are considerations. MRI of the lumbar spine with contrast is recommended. ESR 82 (chronically 70-100) pro-Roland 0.2 CRP 10.7 Will attempt a MRI of the lumbar spine Is able to ambulate, no loss of sensation bilateral extremities, but does complain of shooting pain from the lower lumbar spine down the left lower extremity History of MSSA septicemia January 2021, source unclear at the time, however appeared to be related to history of IV drug use. Endocarditis was ruled out with RENEE. Patient has also been complaining of chronic back pain since then. Small foci of air within the disc of L4-L5 and L5-S1 were noted also along the right psoas and posterior soft tissues of the lumbar spine, this was thought to be related to lumbar puncture that was attempted prior to this CAT scan. An MRI to rule out discitis was refused by the patient. This would need to be reconsidered most likely if blood cultures return positive on this current admission and or patient continues to complain of back pain. I am unable to assess for her current symptoms in this regard due to altered mental status. Attestations Medical Necessity Statement*: Patient requires hospitalization for lower lumbar pain, altered mental status hypokalemia hyperammonemia hepatic encephalopathy Coding Level of Care Code Acute Uncrater for [facility] Fwd Diagnoses Hypokalemia E87.6 Altered mental status R41.82 Encephalopathy G93.40 Acute cystitis N30.00 Anemia D64.9 Hypertension I10 Hypertension type: essential hypertension Diabetes mellitus, type II E11.69 Diabetes mellitus group home insulin use: unspecified terminal operations supervisor insulin use status Diabetes mellitus complication status: with other specified complication Lumbar back pain with radiculopathy affecting lower extremity M54.16 Thrombocytopenia D69.6 Acute hepatitis C B17.10 Hypothyroid E03.9 Hypothyroidism type: acquired Hepatic encephalopathy K72.90
[2021-07-29] MEDS: potassium chloride ER 20 mEq Tablet 40 MEQ PO (18:31)
[2021-07-29 21:53] LABS: Glucose Point of Care 112 mg/dL (70-110)
[2021-07-30] VITALS (10 sets, daily range): BP systolic 118–146; BP diastolic 68–85; PULSE 59–74; RESP 16–19; TEMP 36.5–37.4; O2SAT 96–100
[2021-07-30] MEDS: lactulose oral liq 20 gm/30 mL UDC PO ×3 (05:57→17:58)
[2021-07-30 06:21] LABS: Basophils % 0.4 %; Eosinophils # 0.1 10^3/uL (0.0-0.8); Eosinophils % 2.2 %; Hematocrit 31.1 % (37.0-47.0); Lymphocytes # 1.8 10^3/uL (0.8-4.8); Lymphocytes % 38.3 %; Mean Corpuscular HGB Conc 28.9 g/dL (30.0-36.0); Mean Corpuscular Volume 72.5 fl (81-99); Mean Platelet Volume 10.3 fL (7.4-10.4); Monocytes # 0.6 10^3/uL (0.2-0.9); Monocytes % 12.8 %; Neutrophils # 2.13 10^3/uL (1.8-7.7); Neutrophils % 46.1 %; Nucleated Red Blood Cells % 0 %; Platelet Count 90 10^3/cmm (130-400); Red Blood Count 4.29 10^6/uL (4.1-5.3); Red Cell Distribution Width 20.5 % (12.1-15.1); White Blood Count 4.6 10^3/uL (4.0-10.0)
[2021-07-30 06:35] LABS: Ammonia 80 umol/L (11-51)
[2021-07-30 06:41] LABS: Alanine Aminotransferase 31 U/L (0-33); Albumin Level 3.4 g/dL (3.5-5.2); Alkaline Phosphatase 260 IU/L (35-105); Anion Gap 15.6 (5-19); Aspartate Amino Transferase 70 U/L (0-32); Blood Urea Nitrogen 6 mg/dL (6-20); Calcium 8.8 mg/dL (8.5-10.5); Carbon Dioxide 19 mmol/L (22-29); Chloride 105 mmol/L (98-107); Creatinine Clr Calc Pharmacy 152.4362; Globulin 3.8 g/dL (1.3-4.6); Glomerular Filtration Rate 110.2 mL/min (90-130); Glucose 163 mg/dL (65-115); Magnesium 1.6 mg/dL (1.7-2.3); Osmolality Calculated 285 mOsm/kg (285-295); Phosphorus 3.5 mg/dL (2.5-4.5); Sodium 137 mmol/L (136-145); Total Bilirubin 1.1 mg/dL (0.15-1.2); Total Protein 7.2 g/dL (6.6-8.7)
[2021-07-30 06:44] LABS: Glucose Point of Care 185 mg/dL (70-110)
[2021-07-30 06:47] LABS: NT Pro B Type Natriuretic Pept 149 pg/mL (0-125)
[2021-07-30 07:00] LABS: Potassium 2.6 mmol/L (3.5-5.1)
--- NOTE | 2021-07-30 07:59 | MR_ITS ---
WS: [id number] MRI LUMBAR SPINE NONCONTRAST TECHNIQUE: Sagittal T1, T2 and STIR imaging. Axial T1 and T2 imaging. CLINICAL INFORMATION: discitis COMPARISON: CT lumbar July 29, 2021 FINDINGS: Images moderately degraded by motion artifact. Mild lumbar curve. Again seen are destructive endplate-type changes at L4-L5 and L5-S1 with endplate edema suspicious for discitis. T2 signal abnormality in the disc space L5-S1. Suggestion of a tiny am ount of epidural abscess/phlegmon at L4-5 and L5-S1. Mild to moderate central canal stenosis. Gadolin ium not administered. L1-L2: Mild annular bulging. Spinal canal and foramen are patent. L2-L3: Mild annular bulging with moderate facet arthropathy. Spinal canal and foramen are patent. L3-L4: Mild annular bulging with slight effacement of ventral thecal sac. Mild central canal stenosis . Small left foraminal protrusion with mild left foraminal narrowing. Right foramen is patent. Modera te facet arthropathy. L4-L5: Changes of suspected discitis with a small amount of epidural phlegmon/abscess. Moderate centr al canal stenosis. Moderate facet arthropathy. Moderate right and mild left foraminal narrowing. L5-S1: Ventral epidural phlegmon/abscess with suspected discitis. Mild to moderate central canal sten osis. Impingement on the traversing left greater than right S1 nerve roots. Severe left and moderate right foraminal narrowing. Moderate facet arthropathy. Small central protrusion in the lower thoracic spine at T9-T10 with mild central canal stenosis.Edema within the right paravertebral soft tissues L5-S1 extending caudally only covered on the sagittal im aging. MR/MR lumbar spine wo con* [id number] IMPRESSION: Images somewhat limited due to motion artifact on the axial imaging . Gadolinium not administered. 1. Suspected discitis at L4-L5 and L5-S1 with erosive endplate changes and ass ociated edema in the adjacent endplates. This is unchanged since the recent CT. 2. Small amount of suspected thin epidural abscess/phlegmon L4-L5 and L5-S1 wi th moderate central canal stenosis L4-5 and mild to moderate central canal sten osis L5-S1. Mild central canal stenosis L3-4. Recommend follow-up to resolution after treatment. Recommend gadolinium on follow-up studies if renal function p ermits 3. Moderate right L4-5 and severe left L5-S1 foraminal narrowing. 4. Moderate facet arthropathy L3-5. Notified Cesar Presley MD at 07/30/2021 4:44 PM.
[2021-07-30] MEDS: vancomycin 1,250 MG/250 ML PIGGYBACK 200 MG IV ×3 (09:09→23:51)
[2021-07-30] MEDS: amlodipine 10 mg Tablet PO (09:13)
[2021-07-30] MEDS: folic acid 1 mg Tablet PO (09:13)
[2021-07-30] MEDS: thiamine 100 mg Tablet PO (09:14)
[2021-07-30] MEDS: cloNIDine 0.1 mg Tablet PO ×2 (09:14→17:59)
[2021-07-30] MEDS: insulin lispro 100 unit/1 mL SUBCUT ×4 (09:14→22:07)
[2021-07-30] MEDS: levothyroxine 100 mcg Tablet PO (09:14)
[2021-07-30] MEDS: propranolol 40 mg Tablet PO ×2 (09:14→17:59)
--- NOTE | 2021-07-30 09:15 | SUR.PREOP ---
TIME OUT FOR PICC LINE INSERTION
--- NOTE | 2021-07-30 09:54 | XR_ITS ---
WS: [id number] Portable AP upright chest, 07/30/2021 Clinical Data: PICC LINE PLACEMENT Comparison: Portable chest, 07/27/2021. Findings: Right PICC line enters superior vena cava and ends in the cavoatrial junction. No pneumotho rax is seen. The PICC line can be retreated 7 cm. XR/XR chest 1V portable [id number] Impression: Right PICC line ending at the cavoatrial junction.
--- NOTE | 2021-07-30 10:30 | XR_ITS ---
WS: [id number] Portable AP semiupright chest, 07/30/2021, 1032 hours Clinical Data: PICC LINE PLACEMENT Comparison: Portable chest, 07/30/2021, 1026 hours. Findings: The right PICC line has been replaced. It ends in the superior vena cava. No pneumothorax i s seen. XR/XR chest 1V portable [id number] Impression: Satisfactory placement right PICC line.
[2021-07-30] MEDS: lidocaine 1% 5 ML in potassium chloride premix 100 ML 25 ML IV ×2 (11:25→17:55)
[2021-07-30] MEDS: magnesium sulfate premix 2 GM/50 ML PIGGYBACK IV (11:25)
[2021-07-30] MEDS: HYDROmorphone 1 mg/mL INJ 1 mL IVP ×3 (11:48→22:17)
[2021-07-30 12:16] LABS: Glucose Point of Care 174 mg/dL (70-110)
[2021-07-30] MEDS: LORazepam 2 mg/mL INJ 1 mL IM (14:08)
--- NOTE | 2021-07-30 17:03 | PM.PN ---
Subjective Subjective: Interval history: Patient was seen this morning, she is alert to person, to place, to time, she follows all commands, continues to have complaints of severe lower back pain, no weakness, no paresthesias, no headache, no blurry vision, she tells her that yesterday she was not willing to do the MRI because she is afraid of the MRI machine, and going to the tube, she is willing to try it again today Vitals/I&O/Wt Last Vital Signs Temp 98.0 F 07/30/21 16:00 Pulse 74 07/30/21 16:00 Resp 16 07/30/21 16:00 BP 118/70 07/30/21 16:00 Pulse Ox 99 07/30/21 16:00 07/30/21 07/30/21 07/30/21 06:59 14:59 22:59 Intake Total 240 / 720 900 / 900 97.5 / 997.5 Balance 240 / 720 900 / 900 97.5 / 997.5 Weight last 48 hrs Weight 99.79 kg Physical Exam Const: COMMON NORMALS: no acute distress and patient oriented x3 Resp: COMMON NORMALS: normal respiratory effort, No retractions, No use of accessory muscles and clear to auscultation bilaterally AUSCULTATION: clear to auscultation bilaterally Cardio: COMMON NORMALS: regular rate, regular rhythm, S1 normal heart sound present and S2 normal heart sound present RATE: regular rate RHYTHM: regular rhythm HEART SOUNDS: S1 normal heart sound present and S2 normal heart sound present GI: COMMON NORMALS: Normal to inspection, nondistended, normoactive bowel sounds present, Soft to palpation, non-tender and No hepatosplenomegaly present PALPATION: Yes Soft to palpation and Yes No hepatosplenomegaly present Extremity: COMMON NORMALS: no pedal edema Neuro: COMMON NORMALS: patient oriented x3 Psych: COMMON NORMALS: mental status grossly normal Data : 07/30/21 06:02 07/30/21 06:02 Micro: Microbiology 07/29/21 16:10 Blood Culture - Preliminary Blood NEGATIVE TO DATE 07/29/21 16:04 Blood Culture - Preliminary Blood NEGATIVE TO DATE 07/28/21 07:10 Blood Culture - Preliminary Blood Strep species, alpha hemolytic 07/27/21 22:00 Urine Culture - Final Urine,Clean Catch Escherichia coli esbl A&P Assessment and plan (1) Hypokalemia: Status: Acute (2) Altered mental status: Status: Acute (3) Encephalopathy: Status: Acute (4) Acute cystitis: Status: Acute (5) Anemia: Status: Acute (6) Hypertension: Status: Acute Qualifiers: Hypertension type: essential hypertension Qualified Code(s): I10 - Essential (primary) hypertension (7) Diabetes mellitus, type II: Status: Acute Qualifiers: Diabetes mellitus nursing home insulin use: unspecified supervisor intermediates insulin use status Diabetes mellitus complication status: with other specified complication Qualified Code(s): E11.69 - Type 2 diabetes mellitus with other specified complication (8) Lumbar back pain with radiculopathy affecting lower extremity: Status: Acute (9) Thrombocytopenia: Status: Acute (10) Acute hepatitis C: Status: Acute (11) Hypothyroid: Status: Acute Qualifiers: Hypothyroidism type: acquired Qualified Code(s): E03.9 - Hypothyroidism, unspecified (12) Hepatic encephalopathy: Status: Acute Additional A&P Information Patient presenting overnight with chief complaints of altered mental status noted by family over the last 3 to 4 days. Currently alert to person, to place, not to time, follows commands, complaining of lower back pain Altered mental status appears to be related to encephalopathy, differentials at this time include hepatic encephalopathy given elevated ammonia at 130 versus possible drug overdose given initial response to Narcan. CT head without acute intracranial events. U tox positive for marijuana, Ethyl alcohol level less than 10. Ammonia level 91, continue t lactulose 20 g every 6 hours, titrate to 4-5 bowel movements per day. Additionally start rifaximin monitor for improvement in mentation. Mildly elevated transaminases, T bili 1.4, CT abdomen from March 2021 without any noted cirrhosis. Hepatic steatosis was seen with normal portal vein. Mildly hydropic gallbladder with small stones noted at the time. No current signs of acute cholecystitis. Hepatitis C screening positive, will likely need outpatient follow-up. Has elevated alk phos, elevated LFTs, repeat CAT scan of the abdomen shows cholelithiasis, Hypokalemia, 2.6, requires IV replacement Hypomagnesemia, stable, supplemented intravenously with 1 g IV mag. UA positive for nitrate, urine cultures positive for ESBL E. coli, broaden antibiotic coverage to Zosyn Thrombocytopenia, likely secondary acute hep C Anemia, likely secondary to acute hep C lower back pain, Will avoid narcotic pain medications, CT scan as of the abdomen pelvis shows Lumbosacral spine erosive changes with pathologic versus chronic fracture deformities of L5 and S1. Erosive arthritis, osteomyelitis, neoplastic process are considerations. MRI of the lumbar spine with contrast is recommended. ESR 82 (chronically 70-100) pro-Roland 0.2 CRP 10.7 Is able to ambulate, no loss of sensation bilateral extremities, but does complain of shooting pain from the lower lumbar spine down the left lower extremity History of MSSA septicemia January 2021, source unclear at the time, however appeared to be related to history of IV drug use. Endocarditis was ruled out with RENEE. Patient has also been complaining of chronic back pain since then. Small foci of air within the disc of L4-L5 and L5-S1 were noted also along the right psoas and posterior soft tissues of the lumbar spine, this was thought to be related to lumbar puncture that was attempted prior to this CAT scan. -CT scan of the lumbar spine showed 1. Destructive endplate changes at L4-L5 and L5-S1 with destructive lytic lesions in the L4, L5, and S1 bodies. This is felt to most likely represent osteomyelitis discitis, as it crosses the disc spaces. A malignant neoplastic process is considered much less likely. 2. Thickening of the ventral epidural space at L4-L5 is suspicious for an epidural abscess. 3. Mild pathologic fracture of superior L5. 4. Follow-up of these findings with MRI without and with IV gadolinium is recommended. -Lumbar MRI will be attempted today -Continue vancomycin, Zosyn Attestations Medical Necessity Statement*: Patient requires hospitalization for possible discitis, vertebral osteomyelitis Coding Level of Care Code Acute Spread Cutter for [facility] Fwd Diagnoses Hypokalemia E87.6 Altered mental status R41.82 Encephalopathy G93.40 Acute cystitis N30.00 Anemia D64.9 Hypertension I10 Hypertension type: essential hypertension Diabetes mellitus, type II E11.69 Diabetes mellitus supervisor intermediates insulin use: unspecified supervisor intermediates insulin use status Diabetes mellitus complication status: with other specified complication Lumbar back pain with radiculopathy affecting lower extremity M54.16 Thrombocytopenia D69.6 Acute hepatitis C B17.10 Hypothyroid E03.9 Hypothyroidism type: acquired Hepatic encephalopathy K72.90
[2021-07-30 17:17] LABS: Glucose Point of Care 184 mg/dL (70-110)
[2021-07-30] MEDS: piperacillin-tazobactam 3.375 GM in sodium chloride 0.9% (plus) 50 ML IV (18:47)
[2021-07-30 21:31] LABS: Glucose Point of Care 182 mg/dL (70-110)
[2021-07-31] VITALS (13 sets, daily range): BP systolic 113–142; BP diastolic 64–82; PULSE 64–73; RESP 16–20; TEMP 36.9–37.1; O2SAT 93–100
[2021-07-31] MEDS: piperacillin-tazobactam 3.375 GM in sodium chloride 0.9% (plus) 50 ML IV ×2 (00:36→09:41)
[2021-07-31] MEDS: HYDROmorphone 1 mg/mL INJ 1 mL IVP ×2 (02:41→08:38)
[2021-07-31 05:57] LABS: Basophils % 0.4 %; Eosinophils # 0.1 10^3/uL (0.0-0.8); Hematocrit 29.3 % (37.0-47.0); Hemoglobin 8.6 g/dL (11.5-15.3); Lymphocytes # 1.8 10^3/uL (0.8-4.8); Lymphocytes % 40.5 %; Mean Corpuscular HGB Conc 29.4 g/dL (30.0-36.0); Mean Corpuscular Hemoglobin 21.4 pg (28.0-34.0); Mean Corpuscular Volume 72.9 fl (81-99); Mean Platelet Volume 9.3 fL (7.4-10.4); Monocytes # 0.7 10^3/uL (0.2-0.9); Monocytes % 16.3 %; Neutrophils # 1.84 10^3/uL (1.8-7.7); Neutrophils % 40.6 %; Nucleated Red Blood Cells % 0 %; Platelet Count 61 10^3/cmm (130-400); Red Blood Count 4.02 10^6/uL (4.1-5.3); Red Cell Distribution Width 20.6 % (12.1-15.1); White Blood Count 4.5 10^3/uL (4.0-10.0)
[2021-07-31 06:04] LABS: Alanine Aminotransferase 28 U/L (0-33); Albumin Level 3.3 g/dL (3.5-5.2); Alkaline Phosphatase 250 IU/L (35-105); Ammonia 62 umol/L (11-51); Aspartate Amino Transferase 61 U/L (0-32); Blood Urea Nitrogen 5 mg/dL (6-20); Calcium 8.1 mg/dL (8.5-10.5); Carbon Dioxide 16 mmol/L (22-29); Chloride 108 mmol/L (98-107); Globulin 3.7 g/dL (1.3-4.6); Glucose 123 mg/dL (65-115); Magnesium 1.6 mg/dL (1.7-2.3); Osmolality Calculated 283 mOsm/kg (285-295); Phosphorus 3.7 mg/dL (2.5-4.5); Sodium 137 mmol/L (136-145); Total Bilirubin 0.9 mg/dL (0.15-1.2)
[2021-07-31 06:05] LABS: Anion Gap 16.7 (5-19); Potassium 3.7 mmol/L (3.5-5.1)
[2021-07-31 06:12] LABS: NT Pro B Type Natriuretic Pept 298 pg/mL (0-125)
[2021-07-31 06:50] LABS: Glucose Point of Care 224 mg/dL (70-110)
[2021-07-31] MEDS: insulin lispro 100 unit/1 mL SUBCUT ×3 (08:13→20:45)
[2021-07-31] MEDS: vancomycin 1,250 MG/250 ML PIGGYBACK 250 MG IV (08:13)
[2021-07-31] MEDS: thiamine 100 mg Tablet PO (08:14)
[2021-07-31] MEDS: levothyroxine 100 mcg Tablet PO (08:14)
[2021-07-31] MEDS: cloNIDine 0.1 mg Tablet PO ×2 (08:14→17:04)
[2021-07-31] MEDS: propranolol 40 mg Tablet PO ×2 (08:15→17:40)
[2021-07-31] MEDS: folic acid 1 mg Tablet PO (08:15)
[2021-07-31] MEDS: amlodipine 10 mg Tablet PO (08:15)
[2021-07-31 08:29] LABS: Vancomycin Trough 21.5 ug/mL (10-15)
[2021-07-31 11:23] LABS: Glucose Point of Care 214 mg/dL (70-110)
--- NOTE | 2021-07-31 12:02 | PM.CONSULT ---
Providers/Reason For Consult Consulting Physician/Specialty*: hospitalist Reason for Consult*: diskitis Attending Physician: Cesar Presley MD Primary Care Provider: FARHAT Rivera History of Present Illness History of Present Illness Gina Jay is a 41 year old female past medical history significant for diabetes mellitus, hypertension, hypothyroidism, and polysubstance abuse, supposedly on Suboxone as outpatient, MSSA septicemia in January 2021, issues with chronic back pain for which CT of the spine was performed in March 2021 to rule out discitis, further MRI was recommended, it appears patient had refused the study. She presents to the emergency room today with altered mental status. Reportedly she was given Narcan by the EMS after which patient became much more alert and awake. At the time of presentation to the ER she was alert and oriented x3. However at the time of my assessment at around 3:30 AM initially, she was confused, lethargic, pupils mid dilated, able to only state her name correctly. Did not know that she was in a hospital or why she is here. Urine drug screen today is positive for marijuana, negative for salicylates and acetaminophen. Ammonia elevated at 130. TSH low at 0.02. CT head without acute intracranial abnormality. Chest x-ray with clear lungs, no consolidation. Review of Systems General: Reports: 10 or more systems reviewed and unremarkable except in HPI and below Const: Reports: fatigue and malaise; Denies: fever(s), chills or body aches Eyes: Denies: change in vision, blurry vision, photophobia or eye discomfort ENMT: Reports: hoarseness; Denies: throat pain, enlarged tonsils, odynophagia, dental pain or nasal congestion Card: Denies: chest pain, palpitations, irregular heart rhythm, edema, swelling of feet/ankles, lightheadedness, pre-syncope, dyspnea on exertion or orthopnea Resp: Denies: dyspnea, productive cough, non-productive cough, wheezing, stridor, pain on inspiration, change in phlegm color, hemoptysis or chest congestion GI: Denies: abdominal pain, nausea, vomiting, hematemesis, coffee ground emesis, dysphagia, heartburn, diarrhea, constipation, GI cramping, change in stool character, hematochezia or melena : Denies: flank pain, difficulty voiding, dysuria, urinary frequency, urinary urgency, urinary hesitancy or hematuria Musc: Denies: neck pain, back pain, extremity pain, joint swelling, joint warmth or deformity Skin/Breast: Denies: rash Neuro: Denies: headache(s), numbness in extremities, weakness in extremities, sensory changes, difficulty walking, frequent falls, dizziness, vertigo, behavioral changes, Slurred speech present or seizure-like activity Psych: Denies: anxiety, depression, suicidal ideation or homicidal ideation Endo: Denies: polyuria, polydipsia, tired all the time, cold intolerance or hot flashes Patricio/Lymph: Denies: easy bruising or easy bleeding All/Imm: Denies: urticaria or acute wheezing Meds/Allergies Home Medications and Allergies Home Medications Medication Instructions Recorded Confirmed Last Taken Type blood sugar diagnostic #100 ea 10/14/20 07/28/21 Unknown Rx Lantus Solostar U-100 Insulin 20 unit SUBCUT QAM 02/20/21 07/28/21 Unknown History insulin aspart U-100 [Novolog See Rx Instructions .ROUTE .COMPLEX 02/20/21 07/28/21 Unknown History Flexpen U-100 Insulin] buprenorphine-naloxone [Suboxone] 1 film SUBLINGUAL TID 03/26/21 07/28/21 Unknown History sennosides [Senna Lax] 8.6 mg PO DAILY #30 tab 03/30/21 07/28/21 Unknown Rx pen needle, diabetic 29 gauge x #100 ea 05/26/21 07/28/21 Unknown History 1/2 potassium chloride 10 mEq 10 meq PO DAILY cap 05/26/21 07/28/21 Unknown History capsule,extended release vitamin with calcium 1 tab PO DAILY tab 05/26/21 07/28/21 Unknown History no.72-iron 27 mg-folic acid 1 mg tablet thiamine HCl (vitamin B1) 100 mg 100 mg PO DAILY tab 05/26/21 07/28/21 Unknown History tablet cyclobenzaprine 5 mg tablet 5 mg PO BID PRN 30 Days #60 tab 06/19/21 07/28/21 Unknown Rx gabapentin 300 mg capsule 300 mg PO DAILY 30 Days #30 cap 06/19/21 07/28/21 Unknown Rx lactulose 10 gram/15 mL oral 45 ml PO DAILY PRN #473 ml 06/19/21 07/28/21 Unknown Rx solution levothyroxine 100 mcg tablet 100 mcg PO DAILY #30 tab 06/19/21 07/28/21 Unknown Rx naproxen 500 mg tablet 500 mg PO BID 30 Days #60 tab 06/19/21 07/28/21 Unknown Rx propranolol 40 mg tablet 40 mg PO BID #30 tab 06/19/21 07/28/21 Unknown Rx albuterol sulfate 2 puff INHALATION QID PRN 07/28/21 07/28/21 Unknown History furosemide 40 mg PO DAILY 07/28/21 07/28/21 Unknown History Allergies Allergy/AdvReac Type Severity Reaction Status Date / Time iodine Allergy Mild unknown Verified 07/27/21 19:50 Sulfa (Sulfonamide Allergy Mild rash Verified 07/27/21 19:50 Antibiotics) Current Medications Current Medications Generic Name Dose Route Start Last Admin Trade Name Freq PRN Reason Stop Dose Admin Amlodipine Besylate 10 mg 07/28/21 09:00 07/31/21 08:15 Amlodipine 10 Mg Tablet PO 10 mg DAILY LEILA Administration Clonidine HCl 0.1 mg 07/28/21 18:00 07/31/21 08:14 Clonidine 0.1 Mg Tablet PO 0.1 mg BID LEILA Administration Folic Acid 1 mg 07/28/21 09:00 07/31/21 08:15 Folic Acid 1 Mg Tablet PO 1 mg DAILY LEILA Administration Vancomycin/PEG/NADA/Lysine/Water 1,250 mg in 250 mls @ 200 mls/hr 07/30/21 08:30 07/31/21 09:45 Vancocin IV Infused Q8H LEILA Infusion Piperacillin Sod/Tazobactam 50 mls @ 12.5 mls/hr 07/30/21 17:30 07/31/21 09:41 Sod 3.375 gm/ Sodium Chloride IV 12.5 mls/hr Q8H LEILA Administration Insulin Detemir 10 unit 07/28/21 20:00 07/31/21 08:13 Insulin Detemir 100 Units/1 Ml SUBCUT 10 unit Q12H LEILA Administration Insulin Human Lispro 0 unit 07/28/21 08:00 07/31/21 08:13 Insulin Lispro 100 Unit/1 Ml SUBCUT 10 unit WM&BEDTIME LEILA Administration Protocol Lactulose 20 gm 07/28/21 05:45 07/31/21 04:48 Lactulose Oral Liq 20 Gm/30 Ml Udc PO Not Given Q6H LEILA Levothyroxine Sodium 100 mcg 07/29/21 09:00 07/31/21 08:14 Levothyroxine 100 Mcg Tablet PO 100 mcg DAILY LEILA Administration Lorazepam 1 mg 07/29/21 07:04 07/29/21 10:21 Lorazepam 2 Mg/Ml Inj 1 Ml IM 1 mg ONCE PRN Administration before MRI Propranolol HCl 40 mg 07/28/21 09:00 07/31/21 08:15 Propranolol 40 Mg Tablet PO 40 mg BID LEILA Administration Rifaximin 550 mg 07/28/21 09:00 07/31/21 08:14 Rifaximin 550 Mg Tablet PO 550 mg BID LEILA Administration Protocol Thiamine Mononitrate 100 mg 07/28/21 09:00 07/31/21 08:14 Thiamine 100 Mg Tablet PO 100 mg DAILY LEILA Administration PFSH Acute PFSH: Medical History (Updated 07/31/21 @ 12:05 by Jhon Wong DO) Abdominal pain Adjustment reaction with anxiety and depression Alcohol use disorder Anemia Anxiety with depression Bipolar disorder Borderline personality disorder Cholelithiasis Congestive heart failure Cystitis Diabetes mellitus, type II Drug-induced psychotic disorder FH: breast cancer in first degree relative H/O chronic hepatitis Hepatic encephalopathy Hypertension Hypertension screen Hypothyroid Meningitis Metabolic encephalopathy Methamphetamine abuse Muscle spasm Obstructive sleep apnea Opiate dependence 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 Pneumonia Polysubstance abuse Polysubstance abuse Respiratory failure with hypoxia Sepsis Staphylococcus aureus bacteremia Vitamin D deficiency Yeast dermatitis Surgical History History of Social History Smoking and tobacco status: never smoked Second hand smoke exposure: No Smoking risk assessment/counseling performed?: No Alcohol intake: never Desire information about alcohol rehabilitation?: No Counseling given: No Desire information about substance/drug rehabilitation?: No Counseling given: No Female Reproductive History: Date of last menstrual period: 10/23/20 Vitals/I&O/Wt Last Vital Signs Temp 98.4 F 07/31/21 11:30 Pulse 64 07/31/21 11:30 Resp 16 07/31/21 11:30 BP 113/64 07/31/21 11:30 Pulse Ox 93 07/31/21 11:30 1207/31/21 07/31/21 22:59 06:59 14:59 Intake Total 750.0 / 1650.0 780 / 2430.0 490 / 490 Balance 750.0 / 1650.0 780 / 2430.0 490 / 490 Physical Exam Narrative: EXAM NARRATIVE: CONSTITUTIONAL: The patient is a normal appearing [] in no apparent distress. GENERAL: Patient in no acute distress. CARDIAC: Regular rate and rhythm. CHEST: Normal inspiratory effort, normal respiratory rate. ABDOMEN: Soft and nontender. SKIN: Clear, warm and intact. NEURO?PSYCH: The patient is alert and oriented to person, place and time. Sensorv /SILT Motor StrengthShoulder abduction C5 5/5Wrist extension C6 5/5Elbow extension C7 5/5Hand Orthopaedic General C8 5/5Finger abduction T15/5 Radial/ Ulnar/ Median n intact LowerSensory (SILT)Motor StrengthHin flexion L2/3Ant/inner thigh 5/5Hip adduction L2/3 5/5Knee extension L4 Lat thigh, 5/5Toe dorsiflexion L5 5/5Ankle dorsiflexion L5/ Q03Wxjooaz flexion S1 5/5 DTRBleeps 2+Triceps 2+Brachioradialis 2+Patellar 2+Achilles 2+ Left plantar flexion, dorsiflexion and EHL 4/5 strength MUSCULOSKELETAL: [] UPPEREXTREMITIES: The patient had full active ROM in fingers, wrist, elbow, and shoulder. The patient demonstrated ability to fully flex/extend/abduct/adduct fingers, make ok sign, cross 2nd/3rd digits, extend 1st digit fully.. Radial pulse 2+, CR<2 seconds. LOWER EXTREMITIES: Pt has full, active ROM of toes, ankle, knee, and hip. Dorsalis pedis/posterior tibialis pulses 2+, CR<2 seconds. SPINE: Skin warm, dry, intact. Data Micro: Micro: Microbiology 07/28/21 07:10 Blood Culture - Pr eliminary Blood Streptococcus v iridans 07/29/21 16:10 Blood Culture - Pr eliminary Blood NEGATIVE TO FAY E 07/29/21 16:04 Blood Culture - Pr eliminary Blood NEGATIVE TO FAY E 07/27/21 22:00 Urine Culture - Fi nal Urine,Clean Catch Escherichia col i esbl A&P Assessment and plan (1) Discitis of lumbosacral region: Patient has discitis of L4-5 and L5-S1. The L4-5 looks more acute on chronic. The L5-S1 looks more acute. She may have a small phlegmon posteriorly to the L5 vertebral body. At this point she is having some weakness in the left leg. This has been going on likely for several months. She also has lumbar stenosis which is moderate in nature. At this point I would treat her with IV antibiotics. And continue to monitor symptoms at this point I would hold off on doing any surgical intervention. Unless she starts having progressively worse weakness or increasing in bowel or bladder issues. Would like to check on her again in 4 to 6 weeks. Status: Acute Consult Attestations Medical Necessity Statement: per primary service Coding Level of Care Code Acute Hospital Staff Pharmacist for Lorri Chandler Diagnoses Discitis of lumbosacral region M46.47
[2021-07-31] MEDS: oxyCODONE 5 mg IR Tab/Cap PO ×3 (12:24→20:47)
[2021-07-31] MEDS: lactulose oral liq 20 gm/30 mL UDC PO ×2 (12:24→17:04)
--- NOTE | 2021-07-31 12:33 | P.PN_ITS ---
Subjective Subjective: Interval history: Patient was seen this morning, denies lower extremity weakness, no paresthesias, no urinary bowel incontinence, no headache, no blurry vision Vitals/I&O/Wt Last Vital Signs Temp 98.4 F 07/31/21 11:30 Pulse 64 07/31/21 11:30 Resp 16 07/31/21 11:30 BP 113/64 07/31/21 11:30 Pulse Ox 93 07/31/21 11:30 07/30/21 07/31/21 07/31/21 22:59 06:59 14:59 Intake Total 750.0 / 1650.0 780 / 2430.0 490 / 490 Balance 750.0 / 1650.0 780 / 2430.0 490 / 490 Physical Exam Const: COMMON NORMALS: no acute distress and patient oriented x3 Resp: COMMON NORMALS: normal respiratory effort, No retractions, No use of accessory muscles and clear to auscultation bilaterally AUSCULTATION: clear to auscultation bilaterally Cardio: COMMON NORMALS: regular rate, regular rhythm, S1 normal heart sound present and S2 normal heart sound present RATE: regular rate RHYTHM: regular rhythm HEART SOUNDS: S1 normal heart sound present and S2 normal heart sound present GI: COMMON NORMALS: Normal to inspection, nondistended, normoactive bowel sounds present, Soft to palpation and non-tender PALPATION: Yes Soft to palpation Extremity: COMMON NORMALS: no pedal edema Neuro: COMMON NORMALS: patient oriented x3 Psych: COMMON NORMALS: mental status grossly normal Data : 07/31/21 05:26 07/31/21 05:26 Micro: Microbiology 07/28/21 07:10 Blood Culture - Preliminary Blood Streptococcus viridans 07/29/21 16:10 Blood Culture - Preliminary Blood NEGATIVE TO DATE 07/29/21 16:04 Blood Culture - Preliminary Blood NEGATIVE TO DATE 07/27/21 22:00 Urine Culture - Final Urine,Clean Catch Escherichia coli esbl A&P Assessment and plan (1) Hypokalemia: Status: Acute (2) Altered mental status: Status: Acute (3) Encephalopathy: Status: Acute (4) Acute cystitis: Status: Acute (5) Anemia: Status: Acute (6) Hypertension: Status: Acute Qualifiers: Hypertension type: essential hypertension Qualified Code(s): I10 - Essential (primary) hypertension (7) Diabetes mellitus, type II: Status: Acute Qualifiers: Diabetes mellitus detention insulin use: unspecified detention insulin use status Diabetes mellitus complication status: with other specified complication Qualified Code(s): E11.69 - Type 2 diabetes mellitus with other specified complication (8) Lumbar back pain with radiculopathy affecting lower extremity: Status: Acute (9) Thrombocytopenia: Status: Acute (10) Acute hepatitis C: Status: Acute (11) Hypothyroid: Status: Acute Qualifiers: Hypothyroidism type: acquired Qualified Code(s): E03.9 - Hypothyroidism, unspecified (12) Hepatic encephalopathy: Status: Acute (13) Discitis of lumbosacral region: Status: Acute Additional A&P Information Patient presenting overnight with chief complaints of altered mental status noted by family over the last 3 to 4 days. Currently alert to person, to place, not to time, follows commands, complaining of lower back pain Altered mental status appears to be related to encephalopathy, differentials at this time include hepatic encephalopathy given elevated ammonia at 130, possible drug overdose given initial response to Narcan, vertebral osteomyelitis CT head without acute intracranial events. U tox positive for marijuana, Ethyl alcohol level less than 10. Ammonia level 91, continue t lactulose 20 g every 6 hours, titrate to 4-5 bowel movements per day. Additionally start rifaximin monitor for improvement in mentation. Mildly elevated transaminases, T bili 1.4, CT abdomen from March 2021 without any noted cirrhosis. Hepatic steatosis was seen with normal portal vein. Mildly hydropic gallbladder with small stones noted at the time. No current signs of acute cholecystitis. Hepatitis C screening positive, will likely need outpatient follow-up. Has elevated alk phos, elevated LFTs, repeat CAT scan of the abdomen shows cholelithiasis, Hypokalemia, 3.7, resolved Hypomagnesemia, 1.6, UA positive for nitrate, urine cultures positive for ESBL E. coli, broaden antibiotic coverage to Zosyn Thrombocytopenia, 67,000, likely secondary acute hep C Anemia, likely secondary to acute hep C lower back pain, Will avoid narcotic pain medications, CT scan as of the abdomen pelvis shows Lumbosacral spine erosive changes with pathologic versus chronic fracture deformities of L5 and S1. Erosive arthritis, osteomyelitis, neoplastic process are considerations. MRI of the lumbar spine with contrast is recommended. ESR 82 (chronically 70-100) pro-Roland 0.2 CRP 10.7 Is able to ambulate, no loss of sensation bilateral extremities, but does complain of shooting pain from the lower lumbar spine down the left lower extremity History of MSSA septicemia January 2021, source unclear at the time, however appeared to be related to history of IV drug use. Endocarditis was ruled out with RENEE. Patient has also been complaining of chronic back pain since then. Small foci of air within the disc of L4-L5 and L5-S1 were noted also along the right psoas and posterior soft tissues of the lumbar spine, this was thought to be related to lumbar puncture that was attempted prior to this CAT scan. -CT scan of the lumbar spine showed 1. Destructive endplate changes at L4-L5 and L5-S1 with destructive lytic lesions in the L4, L5, and S1 bodies. This is felt to most likely represent osteomyelitis discitis, as it crosses the disc spaces. A malignant neoplastic process is considered much less likely. 2. Thickening of the ventral epidural space at L4-L5 is suspicious for an epidural abscess. 3. Mild pathologic fracture of superior L5. 4. Follow-up of these findings with MRI without and with IV gadolinium is recommended. 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
--- NOTE | 2021-07-31 13:44 | PC.CHAP ---
Pastoral Care Encounter/Spiritual Assessment Type of Contact [] Declined actuarial associate visit [] Patient/Family/Request visit [] Outpatient visit [] Follow-up visit [] Physician referral [] Code/Alert [] Routine visit [] Staff referral [] Actively dying [] Patient sleeping [] Family support [] [] Out of room [] Palliative care [] [] Receiving care in room [] Pre-surgical visit [] Trauma [] Long length of stay [] ICU visit [xx] Other: Restricted access Relational/Emotional Strength [] Patient feels connected with others/family/visitors/staff [] Distress [] Loneliness/isolation [] Abandonment Spirituality of Patient [] Person of Connie [] Attends Islam of their Connie [] Believes in Prayer [] Reads Bible or Anabaptism materials [] There are Spiritual issues to be addressed Applied Research Director Interventions [] Prayer [] Active listening [] Non-anxious presence [] Spiritual/emotional support [] Crisis/trauma care [] Spiritual counseling [] Bereavement support [] Provided bereavement packet [] Provided Bible/devotional materials [] Provided toy/stuffed animal, coloring book to patient or family member [] Provided Communion [] Anointing/[place] [] Salvation [] Completed spiritual assessment [] Other: Impact on Illness or Injury [] Angry [] Fearful [] Anxious [] Often cries [] Exhaustion [] Unable to work [] Unable to attend yarsanism [] Unable to walk/stand [] Unable to read [] Unable to drive [] Unable to eat/drink [] Unable to sleep [] Unable to be with family [] Patient intubated [] Other: Summary Time spent with patient
[2021-07-31 17:03] LABS: Glucose Point of Care 116 mg/dL (70-110)
[2021-07-31] MEDS: piperacillin-tazobactam 3.375 GM in sodium chloride 0.9% (plus) 50 ML 1.5 GM IV (17:08)
[2021-07-31 20:38] LABS: Glucose Point of Care 185 mg/dL (70-110)
[2021-07-31] MEDS: vancomycin 1,500 MG/300 ML PIGGYBACK 200 MG IV (20:40)
[2021-08-01] VITALS (13 sets, daily range): BP systolic 119–154; BP diastolic 75–95; PULSE 67–76; RESP 16–18; TEMP 36.4–36.9; O2SAT 96–99
[2021-08-01] MEDS: piperacillin-tazobactam 3.375 GM in sodium chloride 0.9% (plus) 50 ML 1.5 GM IV (01:04)
[2021-08-01] MEDS: oxyCODONE 5 mg IR Tab/Cap PO ×5 (01:04→23:09)
[2021-08-01] MEDS: lactulose oral liq 20 gm/30 mL UDC PO ×3 (06:07→17:59)
[2021-08-01 06:10] LABS: Basophils % 0.5 %; Eosinophils # 0.1 10^3/uL (0.0-0.8); Eosinophils % 2.2 %; Hematocrit 28.3 % (37.0-47.0); Hemoglobin 8.4 g/dL (11.5-15.3); Lymphocytes # 2.2 10^3/uL (0.8-4.8); Lymphocytes % 51.7 %; Mean Corpuscular HGB Conc 29.7 g/dL (30.0-36.0); Mean Corpuscular Hemoglobin 21.6 pg (28.0-34.0); Mean Corpuscular Volume 72.8 fl (81-99); Mean Platelet Volume 9.6 fL (7.4-10.4); Monocytes # 0.6 10^3/uL (0.2-0.9); Monocytes % 14.8 %; Neutrophils # 1.28 10^3/uL (1.8-7.7); Neutrophils % 30.6 %; Nucleated Red Blood Cells % 0 %; Platelet Count 73 10^3/cmm (130-400); Red Blood Count 3.89 10^6/uL (4.1-5.3); Red Cell Distribution Width 20.6 % (12.1-15.1); White Blood Count 4.2 10^3/uL (4.0-10.0)
[2021-08-01 06:34] LABS: Alanine Aminotransferase 24 U/L (0-33); Albumin Level 3.1 g/dL (3.5-5.2); Alkaline Phosphatase 229 IU/L (35-105); Anion Gap 15.6 (5-19); Aspartate Amino Transferase 49 U/L (0-32); Blood Urea Nitrogen 7 mg/dL (6-20); C Reactive Protein 7.3 mg/L (0.0-4.9); Calcium 7.8 mg/dL (8.5-10.5); Carbon Dioxide 16 mmol/L (22-29); Chloride 109 mmol/L (98-107); Globulin 3.3 g/dL (1.3-4.6); Glucose 111 mg/dL (65-115); Magnesium 1.5 mg/dL (1.7-2.3); Osmolality Calculated 283 mOsm/kg (285-295); Phosphorus 3.4 mg/dL (2.5-4.5); Potassium 3.6 mmol/L (3.5-5.1); Sodium 137 mmol/L (136-145); Total Bilirubin 0.7 mg/dL (0.15-1.2); Total Protein 6.4 g/dL (6.6-8.7)
[2021-08-01 06:38] LABS: Procalcitonin 0.09 ng/mL (0-0.5)
[2021-08-01] MEDS: magnesium sulfate premix 2 GM/50 ML PIGGYBACK IV (08:59)
[2021-08-01] MEDS: insulin lispro 100 unit/1 mL SUBCUT ×4 (09:09→21:38)
[2021-08-01] MEDS: vancomycin 1,500 MG/300 ML PIGGYBACK 200 MG IV ×2 (09:15→20:46)
[2021-08-01] MEDS: cloNIDine 0.1 mg Tablet PO ×2 (09:18→17:59)
[2021-08-01] MEDS: amlodipine 10 mg Tablet PO (09:19)
[2021-08-01] MEDS: propranolol 40 mg Tablet PO ×2 (09:19→18:02)
[2021-08-01] MEDS: levothyroxine 100 mcg Tablet PO (09:19)
[2021-08-01] MEDS: folic acid 1 mg Tablet PO (09:19)
[2021-08-01] MEDS: thiamine 100 mg Tablet PO (09:19)
[2021-08-01] MEDS: piperacillin-tazobactam 3.375 GM in sodium chloride 0.9% (plus) 50 ML IV ×2 (10:00→17:55)
[2021-08-01 13:13] LABS: Glucose Point of Care 188 mg/dL (70-110)
[2021-08-01 13:13] LABS: Glucose Point of Care 162 mg/dL (70-110)
--- NOTE | 2021-08-01 16:47 | PM.PN ---
Subjective Subjective: Interval history: Patient was seen this morning, no fevers, chills, no urinary or bowel incontinence, no weakness, continues to have low back pain Vitals/I&O/Wt Last Vital Signs Temp 98.1 F 08/01/21 15:36 Pulse 70 08/01/21 15:36 Resp 18 08/01/21 15:36 BP 119/81 08/01/21 15:36 Pulse Ox 98 08/01/21 15:36 08/01/21 08/01/21 08/01/21 06:59 14:59 22:59 Intake Total 731.9 / 2851.9 843.4 / 843.4 50 / 893.4 Balance 731.9 / 2851.9 843.4 / 843.4 50 / 893.4 Physical Exam Const: COMMON NORMALS: no acute distress and patient oriented x3 Resp: COMMON NORMALS: normal respiratory effort, No retractions, No use of accessory muscles and clear to auscultation bilaterally AUSCULTATION: clear to auscultation bilaterally Cardio: COMMON NORMALS: regular rate, regular rhythm, S1 normal heart sound present and S2 normal heart sound present RATE: regular rate RHYTHM: regular rhythm HEART SOUNDS: S1 normal heart sound present and S2 normal heart sound present GI: COMMON NORMALS: Normal to inspection, nondistended, normoactive bowel sounds present, Soft to palpation and non-tender PALPATION: Yes Soft to palpation Extremity: COMMON NORMALS: no pedal edema Neuro: COMMON NORMALS: patient oriented x3 Psych: COMMON NORMALS: mental status grossly normal Data : 08/01/21 05:47 08/01/21 05:47 Micro: Microbiology 07/28/21 07:10 Blood Culture - Final Blood Streptococcus viridans A&P Assessment and plan (1) Hypokalemia: Status: Acute (2) Altered mental status: Status: Acute (3) Encephalopathy: Status: Acute (4) Acute cystitis: Status: Acute (5) Anemia: Status: Acute (6) Hypertension: Status: Acute Qualifiers: Hypertension type: essential hypertension Qualified Code(s): I10 - Essential (primary) hypertension (7) Diabetes mellitus, type II: Status: Acute Qualifiers: 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: unspecified residential insulin use status Diabetes mellitus complication status: with other specified complication Qualified Code(s): E11.69 - Type 2 diabetes mellitus with other specified complication (8) Lumbar back pain with radiculopathy affecting lower extremity: Status: Acute (9) Thrombocytopenia: Status: Acute (10) Acute hepatitis C: Status: Acute (11) Hypothyroid: Status: Acute Qualifiers: Hypothyroidism type: acquired Qualified Code(s): E03.9 - Hypothyroidism, unspecified (12) Hepatic encephalopathy: Status: Acute (13) Discitis of lumbosacral region: Status: Acute Additional A&P Information Patient presenting overnight with chief complaints of altered mental status noted by family over the last 3 to 4 days. Currently alert to person, to place, not to time, follows commands, complaining of lower back pain Altered mental status appears to be related to encephalopathy, differentials at this time include hepatic encephalopathy given elevated ammonia at 130, possible drug overdose given initial response to Narcan, vertebral osteomyelitis CT head without acute intracranial events. U tox positive for marijuana, Ethyl alcohol level less than 10. Ammonia level 91, continue t lactulose 20 g every 6 hours, titrate to 4-5 bowel movements per day. Additionally start rifaximin monitor for improvement in mentation. Mildly elevated transaminases, T bili 1.4, CT abdomen from March 2021 without any noted cirrhosis. Hepatic steatosis was seen with normal portal vein. Mildly hydropic gallbladder with small stones noted at the time. No current signs of acute cholecystitis. Hepatitis C screening positive, will likely need outpatient follow-up. Has elevated alk phos, elevated LFTs, repeat CAT scan of the abdomen shows cholelithiasis, Hypokalemia, resolved, resolved Hypomagnesemia, 1.5, will replace UA positive for nitrate, urine cultures positive for ESBL E. coli, broaden antibiotic coverage to Zosyn Thrombocytopenia, likely secondary acute hep C Anemia, likely secondary to acute hep C Osteomyelitis, discitis lower lumbar spine CT scan as of the abdomen pelvis shows Lumbosacral spine erosive changes with pathologic versus chronic fracture deformities of L5 and S1. Erosive arthritis, osteomyelitis, neoplastic process are considerations. MRI of the lumbar spine with contrast is recommended. ESR 82 (chronically 70-100) pro-Roland 0.2 CRP 10.7 Is able to ambulate, no loss of sensation bilateral extremities, but does complain of shooting pain from the lower lumbar spine down the left lower extremity History of MSSA septicemia January 2021, source unclear at the time, however appeared to be related to history of IV drug use. Endocarditis was ruled out with RENEE. Patient has also been complaining of chronic back pain since then. Small foci of air within the disc of L4-L5 and L5-S1 were noted also along the right psoas and posterior soft tissues of the lumbar spine, this was thought to be related to lumbar puncture that was attempted prior to this CAT scan. -CT scan of the lumbar spine showed 1. Destructive endplate changes at L4-L5 and L5-S1 with destructive lytic lesions in the L4, L5, and S1 bodies. This is felt to most likely represent osteomyelitis discitis, as it crosses the disc spaces. A malignant neoplastic process is considered much less likely. 2. Thickening of the ventral epidural space at L4-L5 is suspicious for an epidural abscess. 3. Mild pathologic fracture of superior L5. 4. Follow-up of these findings with MRI without and with IV gadolinium is recommended. 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 [facility] Diagnoses Hypokalemia E87.6 Altered mental status R41.82 Encephalopathy G93.40 Acute cystitis N30.00 Anemia D64.9 Hypertension I10 Hypertension type: essential hypertension Diabetes mellitus, type II E11.69 Diabetes mellitus residential insulin use: unspecified residential insulin use status Diabetes mellitus complication status: with other specified complication Lumbar back pain with radiculopathy affecting lower extremity M54.16 Thrombocytopenia D69.6 Acute hepatitis C B17.10 Hypothyroid E03.9 Hypothyroidism type: acquired Hepatic encephalopathy K72.90 Discitis of lumbosacral region M46.47
--- NOTE | 2021-08-01 20:44 | PC.NURSE ---
DIRECTOR [employer] reported to Nurse patient blood glucose 145
[2021-08-01 20:59] LABS: Glucose Point of Care 145 mg/dL (70-110)
[2021-08-01 20:59] LABS: Glucose Point of Care 204 mg/dL (70-110)
[2021-08-02] VITALS (10 sets, daily range): BP systolic 122–154; BP diastolic 55–91; PULSE 65–81; RESP 14–18; TEMP 36.4–36.9; O2SAT 96–100
[2021-08-02] MEDS: piperacillin-tazobactam 3.375 GM in sodium chloride 0.9% (plus) 50 ML IV ×3 (02:22→16:29)
[2021-08-02] MEDS: oxyCODONE 5 mg IR Tab/Cap PO ×3 (04:52→21:32)
[2021-08-02] MEDS: lactulose oral liq 20 gm/30 mL UDC PO ×3 (05:07→16:32)
[2021-08-02 06:28] LABS: Basophils % 0.7 %; Eosinophils # 0.1 10^3/uL (0.0-0.8); Eosinophils % 2.6 %; Hematocrit 29.8 % (37.0-47.0); Hemoglobin 8.7 g/dL (11.5-15.3); Lymphocytes # 2.1 10^3/uL (0.8-4.8); Lymphocytes % 48.9 %; Mean Corpuscular HGB Conc 29.2 g/dL (30.0-36.0); Mean Corpuscular Hemoglobin 21.2 pg (28.0-34.0); Mean Corpuscular Volume 72.5 fl (81-99); Mean Platelet Volume 9.8 fL (7.4-10.4); Monocytes # 0.7 10^3/uL (0.2-0.9); Monocytes % 15.8 %; Neutrophils # 1.36 10^3/uL (1.8-7.7); Nucleated Red Blood Cells % 0 %; Platelet Count 85 10^3/cmm (130-400); Red Blood Count 4.11 10^6/uL (4.1-5.3); Red Cell Distribution Width 20.5 % (12.1-15.1); White Blood Count 4.3 10^3/uL (4.0-10.0)
[2021-08-02 06:53] LABS: Glucose Point of Care 123 mg/dL (70-110)
[2021-08-02 06:54] LABS: Alanine Aminotransferase 25 U/L (0-33); Albumin Level 3.3 g/dL (3.5-5.2); Alkaline Phosphatase 227 IU/L (35-105); Anion Gap 14.5 (5-19); Aspartate Amino Transferase 53 U/L (0-32); Blood Urea Nitrogen 7 mg/dL (6-20); C Reactive Protein 5.6 mg/L (0.0-4.9); Calcium 8.3 mg/dL (8.5-10.5); Carbon Dioxide 19 mmol/L (22-29); Chloride 109 mmol/L (98-107); Globulin 3.8 g/dL (1.3-4.6); Glucose 126 mg/dL (65-115); Magnesium 1.7 mg/dL (1.7-2.3); Osmolality Calculated 288 mOsm/kg (285-295); Potassium 3.5 mmol/L (3.5-5.1); Sodium 139 mmol/L (136-145); Total Bilirubin 0.6 mg/dL (0.15-1.2); Total Protein 7.1 g/dL (6.6-8.7)
[2021-08-02] MEDS: levothyroxine 100 mcg Tablet PO (07:59)
[2021-08-02] MEDS: amlodipine 10 mg Tablet PO (07:59)
[2021-08-02] MEDS: folic acid 1 mg Tablet PO (07:59)
[2021-08-02] MEDS: thiamine 100 mg Tablet PO (07:59)
[2021-08-02] MEDS: propranolol 40 mg Tablet PO ×2 (08:00→16:42)
[2021-08-02] MEDS: vancomycin 1,500 MG/300 ML PIGGYBACK 200 MG IV ×2 (08:01→21:32)
[2021-08-02] MEDS: insulin lispro 100 unit/1 mL SUBCUT ×3 (12:32→21:32)
[2021-08-02 12:34] LABS: Vancomycin Trough 32.6 ug/mL (10-15)
[2021-08-02 12:36] LABS: Glucose Point of Care 189 mg/dL (70-110)
--- NOTE | 2021-08-02 15:04 | PM.PN ---
Subjective Subjective: Interval history: Patient was seen this morning, no fevers overnight, no nausea, no vomiting, no lower extremity weakness, she is agreeable to home health care, home health care IV infusions of antibiotics Vitals/I&O/Wt Last Vital Signs Temp 98.1 F 08/02/21 08:00 Pulse 69 08/02/21 08:00 Resp 18 08/02/21 13:08 BP 154/91 08/02/21 08:00 Pulse Ox 99 08/02/21 08:00 08/02/21 08/02/21 08/02/21 06:59 14:59 22:59 Intake Total 820 / 820 Balance 820 / 820 Physical Exam Const: COMMON NORMALS: no acute distress and patient oriented x3 Resp: COMMON NORMALS: normal respiratory effort, No retractions, No use of accessory muscles and clear to auscultation bilaterally AUSCULTATION: clear to auscultation bilaterally Cardio: COMMON NORMALS: regular rate, regular rhythm, S1 normal heart sound present and S2 normal heart sound present RATE: regular rate RHYTHM: regular rhythm HEART SOUNDS: S1 normal heart sound present and S2 normal heart sound present GI: COMMON NORMALS: Normal to inspection, nondistended, normoactive bowel sounds present, Soft to palpation and non-tender PALPATION: Yes Soft to palpation Extremity: COMMON NORMALS: no pedal edema Neuro: COMMON NORMALS: patient oriented x3 Psych: COMMON NORMALS: mental status grossly normal Data : 08/02/21 06:11 08/02/21 06:11 Micro: Microbiology 07/28/21 07:15 Blood Culture - Final Blood NO GROWTH AFTER 5 DAYS 07/28/21 07:10 Blood Culture - Final Blood Streptococcus viridans A&P Assessment and plan (1) Hypokalemia: Status: Acute (2) Altered mental status: Status: Acute (3) Encephalopathy: Status: Acute (4) Acute cystitis: Status: Acute (5) Anemia: Status: Acute (6) Hypertension: Status: Acute Qualifiers: Hypertension type: essential hypertension Qualified Code(s): I10 - Essential (primary) hypertension (7) Diabetes mellitus, type II: Status: Acute Qualifiers: 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 insulin use status Diabetes mellitus complication status: with other specified complication Qualified Code(s): E11.69 - Type 2 diabetes mellitus with other specified complication (8) Lumbar back pain with radiculopathy affecting lower extremity: Status: Acute (9) Thrombocytopenia: Status: Acute (10) Acute hepatitis C: Status: Acute (11) Hypothyroid: Status: Acute Qualifiers: Hypothyroidism type: acquired Qualified Code(s): E03.9 - Hypothyroidism, unspecified (12) Hepatic encephalopathy: Status: Acute (13) Discitis of lumbosacral region: Status: Acute Additional A&P Information Patient presenting overnight with chief complaints of altered mental status noted by family over the last 3 to 4 days. Currently alert to person, to place, not to time, follows commands, complaining of lower back pain Altered mental status appears to be related to encephalopathy, differentials at this time include hepatic encephalopathy given elevated ammonia at 130, possible drug overdose given initial response to Narcan, vertebral osteomyelitis CT head without acute intracranial events. U tox positive for marijuana, Ethyl alcohol level less than 10. Ammonia level 91, continue t lactulose 20 g every 6 hours, titrate to 4-5 bowel movements per day. Additionally start rifaximin monitor for improvement in mentation. Mildly elevated transaminases, T bili 1.4, CT abdomen from March 2021 without any noted cirrhosis. Hepatic steatosis was seen with normal portal vein. Mildly hydropic gallbladder with small stones noted at the time. No current signs of acute cholecystitis. Hepatitis C screening positive, will likely need outpatient follow-up. Has elevated alk phos, elevated LFTs, repeat CAT scan of the abdomen shows cholelithiasis, Hypokalemia, resolved, resolved Hypomagnesemia, 1.5, will replace UA positive for nitrate, urine cultures positive for ESBL E. coli, broaden antibiotic coverage to Zosyn Thrombocytopenia, likely secondary acute hep C Anemia, likely secondary to acute hep C Osteomyelitis, discitis lower lumbar spine CT scan as of the abdomen pelvis shows Lumbosacral spine erosive changes with pathologic versus chronic fracture deformities of L5 and S1. Erosive arthritis, osteomyelitis, neoplastic process are considerations. MRI of the lumbar spine with contrast is recommended. ESR 82 (chronically 70-100) pro-Roland 0.2 CRP 10.7 Is able to ambulate, no loss of sensation bilateral extremities, but does complain of shooting pain from the lower lumbar spine down the left lower extremity History of MSSA septicemia January 2021, source unclear at the time, however appeared to be related to history of IV drug use. Endocarditis was ruled out with RENEE. Patient has also been complaining of chronic back pain since then. Small foci of air within the disc of L4-L5 and L5-S1 were noted also along the right psoas and posterior soft tissues of the lumbar spine, this was thought to be related to lumbar puncture that was attempted prior to this CAT scan. -CT scan of the lumbar spine showed 1. Destructive endplate changes at L4-L5 and L5-S1 with destructive lytic lesions in the L4, L5, and S1 bodies. This is felt to most likely represent osteomyelitis discitis, as it crosses the disc spaces. A malignant neoplastic process is considered much less likely. 2. Thickening of the ventral epidural space at L4-L5 is suspicious for an epidural abscess. 3. Mild pathologic fracture of superior L5. 4. Follow-up of these findings with MRI without and with IV gadolinium is recommended. -Blood culture showing viridans strep, susceptibilities pending, repeat blood cultures pending negative so far -Continue vancomycin, Zosyn -On discharge will need Vanco, ciprofloxacin for osteomyelitis, Macrobid for ESBL UTI -We will need 6 weeks of IV antibiotics, vancomycin, Vanco trough 32.6, redraw this evening, dose appropriately by pharmacy -Agreeable to home health IV infusion will set up for hopefully tomorrow - Attestations Medical Necessity Statement*: Patient requires hospitalization for tube osteomyelitis, discitis Coding Level of Care Code Acute Negative Checker for g Fwd Diagnoses Hypokalemia E87.6 Altered mental status R41.82 Encephalopathy G93.40 Acute cystitis N30.00 Anemia D64.9 Hypertension I10 Hypertension type: essential hypertension Diabetes mellitus, type II E11.69 Diabetes mellitus care home insulin use: unspecified care home insulin use status Diabetes mellitus complication status: with other specified complication Lumbar back pain with radiculopathy affecting lower extremity M54.16 Thrombocytopenia D69.6 Acute hepatitis C B17.10 Hypothyroid E03.9 Hypothyroidism type: acquired Hepatic encephalopathy K72.90 Discitis of lumbosacral region M46.47
[2021-08-02 16:49] LABS: Glucose Point of Care 182 mg/dL (70-110)
[2021-08-02 19:52] LABS: Vancomycin Trough 13.8 ug/mL (10-15)
[2021-08-02 20:53] LABS: Glucose Point of Care 151 mg/dL (70-110)
[2021-08-03] VITALS (9 sets, daily range): BP systolic 110–136; BP diastolic 65–82; PULSE 65–72; RESP 16–18; TEMP 36.6–36.8; O2SAT 92–100
[2021-08-03] MEDS: piperacillin-tazobactam 3.375 GM in sodium chloride 0.9% (plus) 50 ML IV ×3 (01:11→17:27)
[2021-08-03] MEDS: oxyCODONE 5 mg IR Tab/Cap PO ×4 (03:17→21:57)
[2021-08-03 05:41] LABS: Basophils % 0.7 %; Eosinophils # 0.1 10^3/uL (0.0-0.8); Eosinophils % 2.8 %; Hematocrit 28.8 % (37.0-47.0); Hemoglobin 8.3 g/dL (11.5-15.3); Lymphocytes # 2.2 10^3/uL (0.8-4.8); Lymphocytes % 50.2 %; Mean Corpuscular HGB Conc 28.8 g/dL (30.0-36.0); Mean Corpuscular Hemoglobin 21.6 pg (28.0-34.0); Mean Corpuscular Volume 74.8 fl (81-99); Mean Platelet Volume 9.2 fL (7.4-10.4); Monocytes # 0.7 10^3/uL (0.2-0.9); Monocytes % 15.2 %; Neutrophils # 1.32 10^3/uL (1.8-7.7); Neutrophils % 30.9 %; Nucleated Red Blood Cells % 0 %; Platelet Count 68 10^3/cmm (130-400); Red Blood Count 3.85 10^6/uL (4.1-5.3); Red Cell Distribution Width 20.5 % (12.1-15.1); White Blood Count 4.3 10^3/uL (4.0-10.0)
[2021-08-03 06:06] LABS: Alanine Aminotransferase 27 U/L (0-33); Albumin Level 3.1 g/dL (3.5-5.2); Alkaline Phosphatase 207 IU/L (35-105); Anion Gap 14.9 (5-19); Aspartate Amino Transferase 62 U/L (0-32); Blood Urea Nitrogen 7 mg/dL (6-20); C Reactive Protein 4.1 mg/L (0.0-4.9); Carbon Dioxide 18 mmol/L (22-29); Chloride 107 mmol/L (98-107); Globulin 3.7 g/dL (1.3-4.6); Glomerular Filtration Rate 175.9 mL/min (90-130); Glucose 121 mg/dL (65-115); Magnesium 1.6 mg/dL (1.7-2.3); Osmolality Calculated 281 mOsm/kg (285-295); Phosphorus 3.8 mg/dL (2.5-4.5); Potassium 3.9 mmol/L (3.5-5.1); Sodium 136 mmol/L (136-145); Total Bilirubin 0.6 mg/dL (0.15-1.2); Total Protein 6.8 g/dL (6.6-8.7)
[2021-08-03 06:10] LABS: Procalcitonin 0.09 ng/mL (0-0.5)
[2021-08-03 06:41] LABS: Glucose Point of Care 125 mg/dL (70-110)
[2021-08-03] MEDS: thiamine 100 mg Tablet PO (08:07)
[2021-08-03] MEDS: propranolol 40 mg Tablet PO ×2 (08:07→17:28)
[2021-08-03] MEDS: folic acid 1 mg Tablet PO (08:10)
[2021-08-03] MEDS: amlodipine 10 mg Tablet PO (08:10)
[2021-08-03] MEDS: levothyroxine 100 mcg Tablet PO (08:10)
[2021-08-03] MEDS: vancomycin 1,500 MG/300 ML PIGGYBACK 200 MG IV ×2 (08:16→21:01)
[2021-08-03 11:13] LABS: Glucose Point of Care 165 mg/dL (70-110)
[2021-08-03] MEDS: insulin lispro 100 unit/1 mL SUBCUT (12:02)
--- NOTE | 2021-08-03 14:46 | P.PN_ITS ---
Subjective Subjective: Interval history: Patient was seen and examined this morning, no acute events overnight. Medications: Reviewed: Yes Medication Review Details: Generic Name Dose Route Start Last Admin Trade Name Freq PRN Reason Stop Dose Admin Amlodipine Besylat e 10 mg 07/28/21 09:00 08/03/21 08:10 Amlodipine 10 Mg Tablet PO 10 mg DAILY LEILA Administration Clonidine HCl 0.1 mg 07/28/21 18:00 08/03/21 08:08 Clonidine 0.1 Mg Tablet PO Not Given BID LEILA Folic Acid 1 mg 07/28/21 09:00 08/03/21 08:10 Folic Acid 1 Mg Tablet PO 1 mg DAILY LEILA Administration Piperacillin Sod/T azobactam 50 mls @ 12.5 mls /hr 07/30/21 17:30 08/03/21 10:18 Sod 3.375 gm/ So dium Chloride IV 12.5 mls/hr Q8H LEILA Administration Vancomycin/PEG/NAD A/Lysine/Water 1,500 mg in 300 m ls @ 200 mls/hr 07/31/21 21:00 08/03/21 09:46 Vancocin IV Infused Q12H LEILA Infusion Insulin Detemir 10 unit 07/28/21 20:00 08/03/21 08:07 Insulin Detemir 100 Units/1 Ml SUBCUT 10 unit Q12H LEILA Administration Insulin Human Lisp ro 0 unit 07/28/21 08:00 08/03/21 12:02 Insulin Lispro 1 00 Unit/1 Ml SUBCUT 6 unit WM&BEDTIME LEILA Administration Protocol Lactulose 20 gm 07/28/21 05:45 08/03/21 12:03 Lactulose Oral L iq 20 Gm/30 Ml Udc PO Not Given Q6H LEILA Levothyroxine Sodi um 100 mcg 07/29/21 09:00 08/03/21 08:10 Levothyroxine 10 0 Mcg Tablet PO 100 mcg DAILY LEILA Administration Oxycodone HCl 5 mg 07/31/21 09:31 08/03/21 11:12 Oxycodone 5 Mg I r Tab/Cap PO 5 mg Q4H PRN Administration MODERATE PAIN Propranolol HCl 40 mg 07/28/21 09:00 08/03/21 08:07 Propranolol 40 M g Tablet PO 40 mg BID LEILA Administration Rifaximin 550 mg 07/28/21 09:00 08/03/21 08:16 Rifaximin 550 Mg Tablet PO 550 mg BID LEILA Administration Protocol Thiamine Mononitra te 100 mg 07/28/21 09:00 08/03/21 08:07 Thiamine 100 Mg Tablet PO 100 mg DAILY LEILA Administration Vitals/I&O/Wt Last Vital Signs Temp 98.1 F 08/03/21 12:00 Pulse 70 08/03/21 12:00 Resp 18 08/03/21 12:00 BP 117/71 08/03/21 12:00 Pulse Ox 97 08/03/21 12:00 08/02/21 08/03/21 08/03/21 22:59 06:59 14:59 Intake Total 540 / 1410 350 / 1760 300 / 300 Output Total 300 / 300 Balance 240 / 1110 350 / 1460 300 / 300 Physical Exam Const: COMMON NORMALS: patient oriented x3 HENMT: COMMON NORMALS: normocephalic and atraumatic HEAD & SCALP: normocephalic and atraumatic Resp: COMMON NORMALS: clear to auscultation bilaterally AUSCULTATION: clear to auscultation bilaterally Cardio: COMMON NORMALS: regular rate, regular rhythm, S1 normal heart sound present, S2 normal heart sound present, No gallops present (Cardio), No murmurs present (Cardio), No rub (Cardio) and Peripheral pulses 2+ throughout RATE: regular rate RHYTHM: regular rhythm HEART SOUNDS: S1 normal heart sound present and S2 normal heart sound present PERIPHERAL PULSES: Peripheral pulses 2+ throughout GI: COMMON NORMALS: Normal to inspection, nondistended, normoactive bowel sounds present, Soft to palpation, non-tender, No hepatosplenomegaly present and no masses AUSCULTATION: Yes normoactive bowel sounds PALPATION: Yes Soft to palpation and Yes No hepatosplenomegaly present RECTAL EXAM: deferred Extremity: COMMON NORMALS: no clubbing, cyanosis or edema and no pedal edema Neuro: COMMON NORMALS: patient oriented x3 Data : 08/03/21 05:20 08/03/21 05:20 A&P Assessment and plan (1) Hypokalemia: Status: Acute (2) Altered mental status: Status: Acute (3) Encephalopathy: Status: Acute (4) Acute cystitis: Status: Acute (5) Anemia: Status: Acute (6) Hypertension: Status: Acute Qualifiers: Hypertension type: essential hypertension Qualified Code(s): I10 - Essential (primary) hypertension (7) Diabetes mellitus, type II: Status: Acute Qualifiers: Diabetes mellitus complication status: with other specified complication Diabetes mellitus fdc insulin use: unspecified terminal 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 insulin 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 Qualified Code(s): E11.69 - Type 2 diabetes mellitus with other specified complication (8) Lumbar back pain with radiculopathy affecting lower extremity: Status: Acute (9) Thrombocytopenia: Status: Acute (10) Acute hepatitis C: Status: Acute (11) Hypothyroid: Status: Acute Qualifiers: Hypothyroidism type: acquired Qualified Code(s): E03.9 - Hypothyroid ism, unspecified (12) Hepatic encephalopathy: Status: Acute (13) Discitis of lumbosacral region: Status: Acute Additional A&P Information Patient presenting overnight with chief complaints of altered mental status noted by family over the last 3 to 4 days. Currently alert to person, to place, not to time, follows commands, complaining of lower back pain Altered mental status appears to be related to encephalopathy, differentials at this time include hepatic encephalopathy given elevated ammonia at 130, possible drug overdose given initial response to Narcan, vertebral osteomyelitis CT head without acute intracranial events. U tox positive for marijuana, Ethyl alcohol level less than 10. Ammonia level 91, continue t lactulose 20 g every 6 hours, titrate to 4-5 bowel movements per day. Additionally start rifaximin monitor for improvement in mentation. Mildly elevated transaminases, T bili 1.4, CT abdomen from March 2021 without any noted cirrhosis. Hepatic steatosis was seen with normal portal vein. Mildly hydropic gallbladder with small stones noted at the time. No current signs of acute cholecystitis. Hepatitis C screening positive, will likely need outpatient follow-up. Has elevated alk phos, elevated LFTs, repeat CAT scan of the abdomen shows emma lithiasis, Hypokalemia, resolved, resolved Hypomagnesemia, 1.5, will replace UA positive for nitrate, urine cultures positive for ESBL E. coli, broaden antibiotic coverage to Zosyn Thrombocytopenia, likely secondary acute hep C Anemia, likely secondary to acute hep C Osteomyelitis, discitis lower lumbar spine CT scan as of the abdomen pelvis shows Lumbosacral spine erosive changes with pathologic versus chronic fracture deformities of L5 and S1. Erosive arthritis, osteomyelitis, neoplastic process are considerations. MRI of the lumbar spine with contrast is recommended. ESR 82 (chronically 70-100) pro-Roland 0.2 CRP 10.7 Is able to ambulate, no loss of sensation bilateral extremities, but does complain of shooting pain from the lower lumbar spine down the left lower extremity History of MSSA septicemia January 2021, source unclear at the time, however appeared to be related to history of IV drug use. Endocarditis was ruled out with RENEE. Patient has also been complaining of chronic back pain since then. Small foci of air within the disc of L4-L5 and L5-S1 were noted also along the right psoas and posterior soft tissues of the lumbar spine, this was thought to be related to lumbar puncture that was attempted prior to this CAT scan. -CT scan of the lumbar spine showed 1. Destructive endplate changes at L4-L5 and L5-S1 with destructive lytic lesions in the L4, L5, and S1 bodies. This is felt to most likely represent osteomyelitis discitis, as it crosses the disc spaces. A malignant neoplastic process is considered much less likely. 2. Thickening of the ventral epidural space at L4-L5 is suspicious for an epidural abscess. 3. Mild pathologic fracture of superior L5. 4. Follow-up of these findings with MRI without and with IV gadolinium is recommended. -Blood culture showing viridans strep, susceptibilities pending, repeat blood cultures pending negative so far -Continue vancomycin, Zosyn -On discharge will need Vanco, ciprofloxacin for osteomyelitis, Macrobid for ESBL UTI -We will need 6 weeks of IV antibiotics, vancomycin, Vanco trough 32.6, redraw this evening, dose appropriately by pharmacy -Agreeable to home health IV infusion will set up for hopefully tomorrow - Attestations Medical Necessity Statement*: Patient needs to be in hospital for management of discitis, need for IV antibiotics. Coding Level of Care Code Acute Transmission Worker for [facility] Fwd Exam Detailed Diagnoses Hypokalemia E87.6 Altered mental status R41.82 Encephalopathy G93.40 Acute cystitis N30.00 Anemia D64.9 Hypertension I10 Hypertension type: essential hypertension Diabetes mellitus, type II E11.69 Diabetes mellitus complication status: with other specified complication Diabetes mellitus fdc insulin use: unspecified fdc insulin use status Lumbar back pain with radiculopathy affecting lower extremity M54.16 Thrombocytopenia D69.6 Acute hepatitis C B17.10 Hypothyroid E03.9 Hypothyroidism type: acquired Hepatic encephalopathy K72.90 Discitis of lumbosacral region M46.47
--- NOTE | 2021-08-03 16:44 | PC.NURSE ---
Patient's PICC line dressing was changed today.
[2021-08-03 21:13] LABS: Glucose Point of Care 125 mg/dL (70-110)
[2021-08-04] VITALS (9 sets, daily range): BP systolic 116–141; BP diastolic 55–85; PULSE 65–91; RESP 16–18; TEMP 36.6–36.9; O2SAT 95–100
[2021-08-04] MEDS: piperacillin-tazobactam 3.375 GM in sodium chloride 0.9% (plus) 50 ML IV ×3 (02:25→19:52)
[2021-08-04] MEDS: oxyCODONE 5 mg IR Tab/Cap PO ×3 (05:30→19:52)
[2021-08-04 05:47] LABS: Basophils % 0.7 %; Eosinophils # 0.1 10^3/uL (0.0-0.8); Eosinophils % 3.5 %; Hematocrit 29.5 % (37.0-47.0); Hemoglobin 8.6 g/dL (11.5-15.3); Lymphocytes % 49.9 %; Mean Corpuscular HGB Conc 29.2 g/dL (30.0-36.0); Mean Corpuscular Hemoglobin 21.5 pg (28.0-34.0); Mean Corpuscular Volume 73.8 fl (81-99); Monocytes # 0.6 10^3/uL (0.2-0.9); Monocytes % 15.6 %; Neutrophils # 1.21 10^3/uL (1.8-7.7); Neutrophils % 30.1 %; Nucleated Red Blood Cells % 0 %; Platelet Count 104 10^3/cmm (130-400); Red Cell Distribution Width 20.3 % (12.1-15.1)
[2021-08-04 05:59] LABS: Anion Gap 14.5 (5-19); Blood Urea Nitrogen 7 mg/dL (6-20); Calcium 8.3 mg/dL (8.5-10.5); Carbon Dioxide 19 mmol/L (22-29); Chloride 108 mmol/L (98-107); Glucose 146 mg/dL (65-115); Osmolality Calculated 287 mOsm/kg (285-295); Potassium 3.5 mmol/L (3.5-5.1); Sodium 138 mmol/L (136-145)
[2021-08-04 06:42] LABS: Glucose Point of Care 141 mg/dL (70-110)
[2021-08-04] MEDS: amlodipine 10 mg Tablet PO (08:54)
[2021-08-04] MEDS: propranolol 40 mg Tablet PO ×2 (08:54→18:15)
[2021-08-04] MEDS: levothyroxine 100 mcg Tablet PO (08:54)
[2021-08-04] MEDS: thiamine 100 mg Tablet PO (08:54)
[2021-08-04] MEDS: folic acid 1 mg Tablet PO (08:54)
[2021-08-04] MEDS: insulin lispro 100 unit/1 mL SUBCUT ×3 (08:55→18:15)
[2021-08-04] MEDS: vancomycin 1,500 MG/300 ML PIGGYBACK 200 MG IV ×2 (08:55→21:57)
[2021-08-04 11:55] LABS: Glucose Point of Care 166 mg/dL (70-110)
[2021-08-04 11:55] LABS: Glucose Point of Care 105 mg/dL (70-110)
--- NOTE | 2021-08-04 13:15 | PM.PN ---
Subjective Subjective: Interval history: Patient was seen and examined this morning, no acute events overnight. Medications: Reviewed: Yes Medication Review Details: Generic Name Dose Route Start Last Admin Trade Name Freq PRN Reason Stop Dose Admin Amlodipine Besylat e 10 mg 07/28/21 09:00 08/03/21 08:10 Amlodipine 10 Mg Tablet PO 10 mg DAILY LEILA Administration Clonidine HCl 0.1 mg 07/28/21 18:00 08/03/21 08:08 Clonidine 0.1 Mg Tablet PO Not Given BID LEILA Folic Acid 1 mg 07/28/21 09:00 08/03/21 08:10 Folic Acid 1 Mg Tablet PO 1 mg DAILY LEILA Administration Piperacillin Sod/T azobactam 50 mls @ 12.5 mls /hr 07/30/21 17:30 08/03/21 10:18 Sod 3.375 gm/ So dium Chloride IV 12.5 mls/hr Q8H LEILA Administration Vancomycin/PEG/NAD A/Lysine/Water 1,500 mg in 300 m ls @ 200 mls/hr 07/31/21 21:00 08/03/21 09:46 Vancocin IV Infused Q12H LEILA Infusion Insulin Detemir 10 unit 07/28/21 20:00 08/03/21 08:07 Insulin Detemir 100 Units/1 Ml SUBCUT 10 unit Q12H LEILA Administration Insulin Human Lisp ro 0 unit 07/28/21 08:00 08/03/21 12:02 Insulin Lispro 1 00 Unit/1 Ml SUBCUT 6 unit WM&BEDTIME LEILA Administration Protocol Lactulose 20 gm 07/28/21 05:45 08/03/21 12:03 Lactulose Oral L iq 20 Gm/30 Ml Udc PO Not Given Q6H LEILA Levothyroxine Sodi um 100 mcg 07/29/21 09:00 08/03/21 08:10 Levothyroxine 10 0 Mcg Tablet PO 100 mcg DAILY LEILA Administration Oxycodone HCl 5 mg 07/31/21 09:31 08/03/21 11:12 Oxycodone 5 Mg I r Tab/Cap PO 5 mg Q4H PRN Administration MODERATE PAIN Propranolol HCl 40 mg 07/28/21 09:00 08/03/21 08:07 Propranolol 40 M g Tablet PO 40 mg BID LEILA Administration Rifaximin 550 mg 07/28/21 09:00 08/03/21 08:16 Rifaximin 550 Mg Tablet PO 550 mg BID LEILA Administration Protocol Thiamine Mononitra te 100 mg 07/28/21 09:00 08/03/21 08:07 Thiamine 100 Mg Tablet PO 100 mg DAILY LEILA Administration Vitals/I&O/Wt Last Vital Signs Temp 98.3 F 08/04/21 11:32 Pulse 67 08/04/21 11:32 Resp 17 08/04/21 11:32 BP 124/79 08/04/21 11:32 Pulse Ox 98 08/04/21 11:32 08/03/21 08/04/21 08/04/21 22:59 06:59 14:59 Intake Total 1070 / 1420 50 / 1470 1140 / 1140 Balance 1070 / 1420 50 / 1470 1140 / 1140 Physical Exam Const: COMMON NORMALS: patient oriented x3 HENMT: COMMON NORMALS: normocephalic and atraumatic HEAD & SCALP: normocephalic and atraumatic Resp: COMMON NORMALS: clear to auscultation bilaterally AUSCULTATION: clear to auscultation bilaterally Cardio: COMMON NORMALS: regular rate, regular rhythm, S1 normal heart sound present, S2 normal heart sound present, No gallops present (Cardio), No murmurs present (Cardio), No rub (Cardio) and Peripheral pulses 2+ throughout RATE: regular rate RHYTHM: regular rhythm HEART SOUNDS: S1 normal heart sound present and S2 normal heart sound present PERIPHERAL PULSES: Peripheral pulses 2+ throughout GI: COMMON NORMALS: Normal to inspection, nondistended, normoactive bowel sounds present, Soft to palpation, non-tender, No hepatosplenomegaly present and no masses AUSCULTATION: Yes normoactive bowel sounds PALPATION: Yes Soft to palpation and Yes No hepatosplenomegaly present RECTAL EXAM: deferred Extremity: COMMON NORMALS: no clubbing, cyanosis or edema and no pedal edema Neuro: COMMON NORMALS: patient oriented x3 Data : 08/04/21 05:15 08/04/21 05:15 Micro: Microbiology 07/29/21 16:10 Blood Culture - Final Blood NO GROWTH AFTER 5 DAYS 07/29/21 16:04 Blood Culture - Final Blood NO GROWTH AFTER 5 DAYS A&P Assessment and plan (1) Hypokalemia: Status: Acute (2) Altered mental status: Status: Acute (3) Encephalopathy: Status: Acute (4) Acute cystitis: Status: Acute (5) Anemia: Status: Acute (6) Hypertension: Status: Acute Qualifiers: Hypertension type: essential hypertension Qualified Code(s): I10 - Essential (primary) hypertension (7) Diabetes mellitus, type II: Status: Acute Qualifiers: Diabetes mellitus complication status: with other specified complication Diabetes mellitus fci insulin use: unspecified termite renewal inspector insulin use status Qualified Code(s): E11.69 - Type 2 diabetes mellitus with other specified complication (8) Lumbar back pain with radiculopathy affecting lower extremity: Status: Acute (9) Thrombocytopenia: Status: Acute (10) Acute hepatitis C: Status: Acute (11) Hypothyroid: Status: Acute Qualifiers: Hypothyroidism type: acquired Qualified Code(s): E03.9 - Hypothyroidism, unspecified (12) Hepatic encephalopathy: Status: Acute (13) Discitis of lumbosacral region: Status: Acute Additional A&P Information Patient presenting overnight with chief complaints of altered mental status noted by family over the last 3 to 4 days. Currently alert to person, to place, not to time, follows commands, complaining of lower back pain Altered mental status appears to be related to encephalopathy, differentials at this time include hepatic encephalopathy given elevated ammonia at 130, possible drug overdose given initial response to Narcan, vertebral osteomyelitis CT head without acute intracranial events. U tox positive for marijuana, Ethyl alcohol level less than 10. Ammonia level 91, continue t lactulose 20 g every 6 hours, titrate to 4-5 bowel movements per day. Additionally start rifaximin monitor for improvement in mentation. Mildly elevated transaminases, T bili 1.4, CT abdomen from March 2021 without any noted cirrhosis. Hepatic steatosis was seen with normal portal vein. Mildly hydropic gallbladder with small stones noted at the time. No current signs of acute cholecystitis. Hepatitis C screening positive, will likely need outpatient follow-up. Has elevated alk phos, elevated LFTs, repeat CAT scan of the abdomen shows cholelithiasis, Hypokalemia, resolved, resolved Hypomagnesemia, 1.5, will replace UA positive for nitrate, urine cultures positive for ESBL E. coli, broaden antibiotic coverage to Zosyn Thrombocytopenia, likely secondary acute hep C Anemia, likely secondary to acute hep C Osteomyelitis, discitis lower lumbar spine CT scan as of the abdomen pelvis shows Lumbosacral spine erosive changes with pathologic versus chronic fracture deformities of L5 and S1. Erosive arthritis, osteomyelitis, neoplastic process are considerations. MRI of the lumbar spine with contrast is recommended. ESR 82 (chronically 70-100) pro-Roland 0.2 CRP 10.7 Is able to ambulate, no loss of sensation bilateral extremities, but does complain of shooting pain from the lower lumbar spine down the left lower extremity History of MSSA septicemia January 2021, source unclear at the time, however appeared to be related to history of IV drug use. Endocarditis was ruled out with RENEE. Patient has also been complaining of chronic back pain since then. Small foci of air within the disc of L4-L5 and L5-S1 were noted also along the right psoas and posterior soft tissues of the lumbar spine, this was thought to be related to lumbar puncture that was attempted prior to this CAT scan. -CT scan of the lumbar spine showed 1. Destructive endplate changes at L4-L5 and L5-S1 with destructive lytic lesions in the L4, L5, and S1 bodies. This is felt to most likely represent osteomyelitis discitis, as it crosses the disc spaces. A malignant neoplastic process is considered much less likely. 2. Thickening of the ventral epidural space at L4-L5 is suspicious for an epidural abscess. 3. Mild pathologic fracture of superior L5. 4. Follow-up of these findings with MRI without and with IV gadolinium is recommended. -Blood culture showing viridans strep, susceptibilities pending, repeat blood cultures pending negative so far -Continue vancomycin, Zosyn -On discharge will need Vanco, ciprofloxacin for osteomyelitis, Macrobid for ESBL UTI -We will need 6 weeks of IV antibiotics, vancomycin, Vanco trough 32.6, redraw this evening, dose appropriately by pharmacy -Agreeable to home health IV infusion will set up for hopefully tomorrow - Attestations Medical Necessity Statement*: Patient needs to be in hospital for management of discitis, need for IV antibiotics. Coding Level of Care Code Acute Batch Room Technician for [facility] Fwd Exam Detailed Diagnoses Hypokalemia E87.6 Altered mental status R41.82 Encephalopathy G93.40 Acute cystitis N30.00 Anemia D64.9 Hypertension I10 Hypertension type: essential hypertension Diabetes mellitus, type II E11.69 Diabetes mellitus complication status: with other specified complication Diabetes mellitus termite renewal inspector insulin use: unspecified termite renewal inspector insulin use status Lumbar back pain with radiculopathy affecting lower extremity M54.16 Thrombocytopenia D69.6 Acute hepatitis C B17.10 Hypothyroid E03.9 Hypothyroidism type: acquired Hepatic encephalopathy K72.90 Discitis of lumbosacral region M46.47
[2021-08-04 16:49] LABS: Glucose Point of Care 147 mg/dL (70-110)
[2021-08-04 21:09] LABS: Glucose Point of Care 102 mg/dL (70-110)
[2021-08-04 21:32] LABS: Vancomycin Trough 13.9 ug/mL (10-15)
[2021-08-05] VITALS (13 sets, daily range): BP systolic 113–149; BP diastolic 70–84; PULSE 62–88; RESP 16–21; TEMP 36.6–36.7; O2SAT 93–99
[2021-08-05] MEDS: oxyCODONE 5 mg IR Tab/Cap PO ×5 (00:09→22:05)
[2021-08-05] MEDS: piperacillin-tazobactam 3.375 GM in sodium chloride 0.9% (plus) 50 ML IV ×3 (04:43→22:05)
[2021-08-05 05:07] LABS: Blood Urea Nitrogen 6 mg/dL (6-20); Carbon Dioxide 19 mmol/L (22-29); Chloride 109 mmol/L (98-107); Glucose 110 mg/dL (65-115); Osmolality Calculated 282 mOsm/kg (285-295); Sodium 137 mmol/L (136-145)
[2021-08-05 05:09] LABS: Basophils % 0.7 %; Eosinophils # 0.1 10^3/uL (0.0-0.8); Eosinophils % 2.9 %; Hematocrit 29.5 % (37.0-47.0); Hemoglobin 8.5 g/dL (11.5-15.3); Lymphocytes # 2.2 10^3/uL (0.8-4.8); Lymphocytes % 52.5 %; Mean Corpuscular HGB Conc 28.8 g/dL (30.0-36.0); Mean Corpuscular Hemoglobin 21.5 pg (28.0-34.0); Mean Corpuscular Volume 74.5 fl (81-99); Mean Platelet Volume 9.5 fL (7.4-10.4); Monocytes # 0.7 10^3/uL (0.2-0.9); Monocytes % 16.5 %; Neutrophils # 1.13 10^3/uL (1.8-7.7); Neutrophils % 27.2 %; Nucleated Red Blood Cells % 0 %; Platelet Count 80 10^3/cmm (130-400); Red Blood Count 3.96 10^6/uL (4.1-5.3); Red Cell Distribution Width 20.4 % (12.1-15.1); White Blood Count 4.2 10^3/uL (4.0-10.0)
[2021-08-05 05:10] LABS: Anion Gap 13.7 (5-19); Potassium 4.7 mmol/L (3.5-5.1)
[2021-08-05 06:44] LABS: Glucose Point of Care 173 mg/dL (70-110)
[2021-08-05 06:57] LABS: Slide Review Slide Review Perform
[2021-08-05] MEDS: insulin lispro 100 unit/1 mL SUBCUT ×3 (08:59→18:30)
[2021-08-05] MEDS: amlodipine 10 mg Tablet PO (09:00)
[2021-08-05] MEDS: cloNIDine 0.1 mg Tablet PO ×2 (09:01→18:25)
[2021-08-05] MEDS: folic acid 1 mg Tablet PO (09:02)
[2021-08-05] MEDS: thiamine 100 mg Tablet PO (09:02)
[2021-08-05] MEDS: levothyroxine 100 mcg Tablet PO (09:02)
[2021-08-05] MEDS: propranolol 40 mg Tablet PO ×2 (09:02→18:24)
[2021-08-05] MEDS: vancomycin 1,500 MG/300 ML PIGGYBACK 200 MG IV ×2 (09:03→20:24)
[2021-08-05] MEDS: clotrimazole 1% cream 30 gm 1 APPLIC TOPICAL ×2 (11:53→18:30)
--- NOTE | 2021-08-05 15:25 | P.PN_ITS ---
Subjective Subjective: Interval history: Patient was seen and examined this morning, no acute events overnight. Medications: Reviewed: Yes Medication Review Details: Generic Name Dose Route Start Last Admin Trade Name Freq PRN Reason Stop Dose Admin Amlodipine Besylat e 10 mg 07/28/21 09:00 08/03/21 08:10 Amlodipine 10 Mg Tablet PO 10 mg DAILY LEILA Administration Clonidine HCl 0.1 mg 07/28/21 18:00 08/03/21 08:08 Clonidine 0.1 Mg Tablet PO Not Given BID LEILA Folic Acid 1 mg 07/28/21 09:00 08/03/21 08:10 Folic Acid 1 Mg Tablet PO 1 mg DAILY LEILA Administration Piperacillin Sod/T azobactam 50 mls @ 12.5 mls /hr 07/30/21 17:30 08/03/21 10:18 Sod 3.375 gm/ So dium Chloride IV 12.5 mls/hr Q8H LEILA Administration Vancomycin/PEG/NAD A/Lysine/Water 1,500 mg in 300 m ls @ 200 mls/hr 07/31/21 21:00 08/03/21 09:46 Vancocin IV Infused Q12H LEILA Infusion Insulin Detemir 10 unit 07/28/21 20:00 08/03/21 08:07 Insulin Detemir 100 Units/1 Ml SUBCUT 10 unit Q12H LEILA Administration Insulin Human Lisp ro 0 unit 07/28/21 08:00 08/03/21 12:02 Insulin Lispro 1 00 Unit/1 Ml SUBCUT 6 unit WM&BEDTIME LEILA Administration Protocol Lactulose 20 gm 07/28/21 05:45 08/03/21 12:03 Lactulose Oral L iq 20 Gm/30 Ml Udc PO Not Given Q6H LEILA Levothyroxine Sodi um 100 mcg 07/29/21 09:00 08/03/21 08:10 Levothyroxine 10 0 Mcg Tablet PO 100 mcg DAILY LEILA Administration Oxycodone HCl 5 mg 07/31/21 09:31 08/03/21 11:12 Oxycodone 5 Mg I r Tab/Cap PO 5 mg Q4H PRN Administration MODERATE PAIN Propranolol HCl 40 mg 07/28/21 09:00 08/03/21 08:07 Propranolol 40 M g Tablet PO 40 mg BID LEILA Administration Rifaximin 550 mg 07/28/21 09:00 08/03/21 08:16 Rifaximin 550 Mg Tablet PO 550 mg BID LEILA Administration Protocol Thiamine Mononitra te 100 mg 07/28/21 09:00 08/03/21 08:07 Thiamine 100 Mg Tablet PO 100 mg DAILY LEILA Administration Vitals/I&O/Wt Last Vital Signs Temp 97.9 F 08/05/21 11:29 Pulse 62 08/05/21 11:29 Resp 18 08/05/21 11:29 BP 113/70 08/05/21 11:29 Pulse Ox 97 08/05/21 11:29 08/05/21 08/05/21 08/05/21 06:59 14:59 22:59 Intake Total 830 / 2500 830 / 830 Balance 830 / 2500 830 / 830 Physical Exam Const: COMMON NORMALS: patient oriented x3 HENMT: COMMON NORMALS: normocephalic and atraumatic HEAD & SCALP: normocephalic and atraumatic Resp: COMMON NORMALS: clear to auscultation bilaterally AUSCULTATION: clear to auscultation bilaterally Cardio: COMMON NORMALS: regular rate, regular rhythm, S1 normal heart sound present, S2 normal heart sound present, No gallops present (Cardio), No murmurs present (Cardio), No rub (Cardio) and Peripheral pulses 2+ throughout RATE: regular rate RHYTHM: regular rhythm HEART SOUNDS: S1 normal heart sound present and S2 normal heart sound present PERIPHERAL PULSES: Peripheral pulses 2+ throughout GI: COMMON NORMALS: Normal to inspection, nondistended, normoactive bowel sounds present, Soft to palpation, non-tender, No hepatosplenomegaly present and no masses AUSCULTATION: Yes normoactive bowel sounds PALPATION: Yes Soft to palpation and Yes No hepatosplenomegaly present RECTAL EXAM: deferred Extremity: COMMON NORMALS: no clubbing, cyanosis or edema and no pedal edema Neuro: COMMON NORMALS: patient oriented x3 Data : 08/05/21 04:40 08/05/21 04:40 A&P Assessment and plan (1) Hypokalemia: Status: Acute (2) Altered mental status: Status: Acute (3) Encephalopathy: Status: Acute (4) Acute cystitis: Status: Acute (5) Anemia: Status: Acute (6) Hypertension: Status: Acute Qualifiers: Hypertension type: essential hypertension Qualified Code(s): I10 - Essential (primary) hypertension (7) Diabetes mellitus, type II: Status: Acute Qualifiers: Diabetes mellitus complication status: with other specified complication Diabetes mellitus custodial insulin use: unspecified custodial insulin use status Qualified Code(s): E11.69 - Type 2 diabetes mellitus with other specified complication (8) Lumbar back pain with radiculopathy affecting lower extremity: Status: Acute (9) Thrombocytopenia: Status: Acute (10) Acute hepatitis C: Status: Acute (11) Hypothyroid: Status: Acute Qualifiers: Hypothyroidism type: acquired Qualified Code(s): E03.9 - Hypothyroidism, unspecified (12) Hepatic encephalopathy: Status: Acute (13) Discitis of lumbosacral region: Status: Acute Additional A&P Information Patient presenting overnight with chief complaints of altered mental status noted by family over the last 3 to 4 days. Currently alert to person, to place, not to time, follows commands, complaining of lower back pain Altered mental status appears to be related to encephalopathy, differentials at this time include hepatic encephalopathy given elevated ammonia at 130, possible drug overdose given initial response to Narcan, vertebral osteomyelitis CT head without acute intracranial events. U tox positive for marijuana, Ethyl alcohol level less than 10. Ammonia level 91, continue t lactulose 20 g every 6 hours, titrate to 4-5 bowel movements per day. Additionally start rifaximin monitor for improvement in mentation. Mildly elevated transaminases, T bili 1.4, CT abdomen from March 2021 without any noted cirrhosis. Hepatic steatosis was seen with normal portal vein. Mildl y hydropic gallbladder with small stones noted at the time. No current signs of acute cholecystitis. Hepatitis C screening positive, will likely need outpatient follow-up. Has elevated alk phos, elevated LFTs, repeat CAT scan of the abdomen shows cholelithiasis, Hypokalemia, resolved, resolved Hypomagnesemia, 1.5, will replace UA positive for nitrate, urine cultures positive for ESBL E. coli, broaden antibiotic coverage to Zosyn Thrombocytopenia, likely secondary acute hep C Anemia, likely secondary to acute hep C Osteomyelitis, discitis lower lumbar spine CT scan as of the abdomen pelvis shows Lumbosacral spine erosive changes with pathologic versus chronic fracture deformities of L5 and S1. Erosive arthritis, osteomyelitis, neoplastic process are considerations. MRI of the lumbar spine with contrast is recommended. ESR 82 (chronically 70-100) pro-Roland 0.2 CRP 10.7 Is able to ambulate, no loss of sensation bilateral extremities, but does complain of shooting pain from the lower lumbar spine down the left lower extremity History of MSSA septicemia January 2021, source unclear at the time, however appeared to be related to history of IV drug use. Endocarditis was ruled out with RENEE. Patient has also been complaining of chronic back pain since then. Small foci of air within the disc of L4-L5 and L5-S1 were noted also along the right psoas and posterior soft tissues of the lumbar spine, this was thought to be related to lumbar puncture that was attempted prior to this CAT scan. -CT scan of the lumbar spine showed 1. Destructive endplate changes at L4-L5 and L5-S1 with destructive lytic lesions in the L4, L5, and S1 bodies. This is felt to most likely represent osteomyelitis discitis, as it crosses the disc spaces. A malignant neoplastic process is considered much less likely. 2. Thickening of the ventral epidural space at L4-L5 is suspicious for an epidural abscess. 3. Mild pathologic fracture of superior L5. 4. Follow-up of these findings with MRI without and with IV gadolinium is recommended. -Blood culture showing viridans strep, susceptibilities pending, repeat blood cultures pending negative so far -Continue vancomycin, Zosyn -On discharge will need Vanco, ciprofloxacin for osteomyelitis, Macrobid for ESBL UTI -We will need 6 weeks of IV antibiotics, vancomycin, Vanco trough 32.6, redraw this evening, dose appropriately by pharmacy -Agreeable to home health IV infusion will set up for hopefully tomorrow - Attestations Medical Necessity Statement*: Patient needs to be in hospital for management of discitis, need for IV antibiotics. Coding Level of Care Code Acute Health Editor for [facility] Fwd Exam Detailed Diagnoses Hypokalemia E87.6 Altered mental status R41.82 Encephalopathy G93.40 Acute cystitis N30.00 Anemia D64.9 Hypertension I10 Hypertension type: essential hypertension Diabetes mellitus, type II E11.69 Diabetes mellitus complication status: with other specified complication Diabetes mellitus custodial insulin use: unspecified custodial insulin use status Lumbar back pain with radiculopathy affecting lower extremity M54.16 Thrombocytopenia D69.6 Acute hepatitis C B17.10 Hypothyroid E03.9 Hypothyroidism type: acquired Hepatic encephalopathy K72.90 Discitis of lumbosacral region M46.47
[2021-08-05 17:36] LABS: Glucose Point of Care 169 mg/dL (70-110)
[2021-08-05 17:37] LABS: Glucose Point of Care 180 mg/dL (70-110)
[2021-08-06] VITALS (11 sets, daily range): BP systolic 116–138; BP diastolic 75–79; PULSE 62–79; RESP 18–20; TEMP 36.6–36.8; O2SAT 94–98
[2021-08-06] MEDS: oxyCODONE 5 mg IR Tab/Cap PO ×4 (02:47→22:14)
[2021-08-06] MEDS: piperacillin-tazobactam 3.375 GM in sodium chloride 0.9% (plus) 50 ML IV ×3 (06:10→23:09)
[2021-08-06 06:40] LABS: Glucose Point of Care 128 mg/dL (70-110)
[2021-08-06 06:45] LABS: Basophils % 0.7 %; Eosinophils # 0.1 10^3/uL (0.0-0.8); Eosinophils % 2.9 %; Hematocrit 30.5 % (37.0-47.0); Hemoglobin 8.6 g/dL (11.5-15.3); Lymphocytes # 2.1 10^3/uL (0.8-4.8); Lymphocytes % 46.3 %; Mean Corpuscular HGB Conc 28.2 g/dL (30.0-36.0); Mean Corpuscular Hemoglobin 21.4 pg (28.0-34.0); Mean Corpuscular Volume 76.1 fl (81-99); Mean Platelet Volume 9.7 fL (7.4-10.4); Monocytes # 0.7 10^3/uL (0.2-0.9); Monocytes % 15.2 %; Neutrophils # 1.58 10^3/uL (1.8-7.7); Neutrophils % 34.7 %; Nucleated Red Blood Cells % 0 %; Platelet Count 107 10^3/cmm (130-400); Red Blood Count 4.01 10^6/uL (4.1-5.3); Red Cell Distribution Width 20.1 % (12.1-15.1); White Blood Count 4.5 10^3/uL (4.0-10.0)
[2021-08-06 06:56] LABS: Anion Gap 16.6 (5-19); Blood Urea Nitrogen 7 mg/dL (6-20); Calcium 8.7 mg/dL (8.5-10.5); Carbon Dioxide 17 mmol/L (22-29); Chloride 109 mmol/L (98-107); Glomerular Filtration Rate 175.9 mL/min (90-130); Glucose 113 mg/dL (65-115); Osmolality Calculated 287 mOsm/kg (285-295); Potassium 3.6 mmol/L (3.5-5.1); Sodium 139 mmol/L (136-145)
[2021-08-06] MEDS: levothyroxine 100 mcg Tablet PO (09:04)
[2021-08-06] MEDS: folic acid 1 mg Tablet PO (09:04)
[2021-08-06] MEDS: amlodipine 10 mg Tablet PO (09:04)
[2021-08-06] MEDS: propranolol 40 mg Tablet PO ×2 (09:04→18:07)
[2021-08-06] MEDS: thiamine 100 mg Tablet PO (09:04)
[2021-08-06] MEDS: cloNIDine 0.1 mg Tablet PO ×2 (09:04→18:07)
[2021-08-06] MEDS: clotrimazole 1% cream 30 gm 1 APPLIC TOPICAL ×2 (10:44→18:07)
[2021-08-06] MEDS: lactulose oral liq 20 gm/30 mL UDC PO (10:44)
[2021-08-06] MEDS: vancomycin 1,500 MG/300 ML PIGGYBACK 200 MG IV ×2 (10:44→21:36)
[2021-08-06 12:18] LABS: Glucose Point of Care 207 mg/dL (70-110)
[2021-08-06] MEDS: insulin lispro 100 unit/1 mL SUBCUT ×2 (13:00→21:35)
[2021-08-06 16:50] LABS: Glucose Point of Care 131 mg/dL (70-110)
--- NOTE | 2021-08-06 19:19 | PM.PN ---
Subjective Subjective: Interval history: Patient was seen and examined this morning, no acute events overnight. Medications: Reviewed: Yes Medication Review Details: Generic Name Dose Route Start Last Admin Trade Name Freq PRN Reason Stop Dose Admin Amlodipine Besylat e 10 mg 07/28/21 09:00 08/03/21 08:10 Amlodipine 10 Mg Tablet PO 10 mg DAILY LEILA Administration Clonidine HCl 0.1 mg 07/28/21 18:00 08/03/21 08:08 Clonidine 0.1 Mg Tablet PO Not Given BID LEILA Folic Acid 1 mg 07/28/21 09:00 08/03/21 08:10 Folic Acid 1 Mg Tablet PO 1 mg DAILY LEILA Administration Piperacillin Sod/T azobactam 50 mls @ 12.5 mls /hr 07/30/21 17:30 08/03/21 10:18 Sod 3.375 gm/ So dium Chloride IV 12.5 mls/hr Q8H LEILA Administration Vancomycin/PEG/NAD A/Lysine/Water 1,500 mg in 300 m ls @ 200 mls/hr 07/31/21 21:00 08/03/21 09:46 Vancocin IV Infused Q12H LEILA Infusion Insulin Detemir 10 unit 07/28/21 20:00 08/03/21 08:07 Insulin Detemir 100 Units/1 Ml SUBCUT 10 unit Q12H LEILA Administration Insulin Human Lisp ro 0 unit 07/28/21 08:00 08/03/21 12:02 Insulin Lispro 1 00 Unit/1 Ml SUBCUT 6 unit WM&BEDTIME LEILA Administration Protocol Lactulose 20 gm 07/28/21 05:45 08/03/21 12:03 Lactulose Oral L iq 20 Gm/30 Ml Udc PO Not Given Q6H LEILA Levothyroxine Sodi um 100 mcg 07/29/21 09:00 08/03/21 08:10 Levothyroxine 10 0 Mcg Tablet PO 100 mcg DAILY LEILA Administration Oxycodone HCl 5 mg 07/31/21 09:31 08/03/21 11:12 Oxycodone 5 Mg I r Tab/Cap PO 5 mg Q4H PRN Administration MODERATE PAIN Propranolol HCl 40 mg 07/28/21 09:00 08/03/21 08:07 Propranolol 40 M g Tablet PO 40 mg BID LEILA Administration Rifaximin 550 mg 07/28/21 09:00 08/03/21 08:16 Rifaximin 550 Mg Tablet PO 550 mg BID LEILA Administration Protocol Thiamine Mononitra te 100 mg 07/28/21 09:00 08/03/21 08:07 Thiamine 100 Mg Tablet PO 100 mg DAILY LEILA Administration Vitals/I&O/Wt Last Vital Signs Temp 97.8 F 08/06/21 15:25 Pulse 64 08/06/21 15:25 Resp 18 08/06/21 18:05 BP 126/79 08/06/21 18:07 Pulse Ox 95 08/06/21 15:25 08/06/21 08/06/21 08/06/21 06:59 14:59 22:59 Intake Total 2049 / 0 1070 / 1070 360 / 1430 Balance 2049 / 3349 1070 / 1070 360 / 1430 Weight last 48 hrs Weight 113.035 kg Physical Exam Const: COMMON NORMALS: patient oriented x3 HENMT: COMMON NORMALS: normocephalic and atraumatic HEAD & SCALP: normocephalic and atraumatic Resp: COMMON NORMALS: clear to auscultation bilaterally AUSCULTATION: clear to auscultation bilaterally Cardio: COMMON NORMALS: regular rate, regular rhythm, S1 normal heart sound present, S2 normal heart sound present, No gallops present (Cardio), No murmurs present (Cardio), No rub (Cardio) and Peripheral pulses 2+ throughout RATE: regular rate RHYTHM: regular rhythm HEART SOUNDS: S1 normal heart sound present and S2 normal heart sound present PERIPHERAL PULSES: Peripheral pulses 2+ throughout GI: COMMON NORMALS: Normal to inspection, nondistended, normoactive bowel sounds present, Soft to palpation, non-tender, No hepatosplenomegaly present and no masses AUSCULTATION: Yes normoactive bowel sounds PALPATION: Yes Soft to palpation and Yes No hepatosplenomegaly present RECTAL EXAM: deferred Extremity: COMMON NORMALS: no clubbing, cyanosis or edema and no pedal edema Neuro: COMMON NORMALS: patient oriented x3 Data : 08/06/21 05:24 08/06/21 05:24 A&P Assessment and plan (1) Hypokalemia: Status: Acute (2) Altered mental status: Status: Acute (3) Encephalopathy: Status: Acute (4) Acute cystitis: Status: Acute (5) Anemia: Status: Acute (6) Hypertension: Status: Acute Qualifiers: Hypertension type: essential hypertension Qualified Code(s): I10 - Essential (primary) hypertension (7) Diabetes mellitus, type II: Status: Acute Qualifiers: 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: unspecified 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 billing 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 insulin use status Diabetes mellitus complication status: with other specified complication Qualified Code(s): E11.69 - Type 2 diabetes mellitus with other specified complication (8) Lumbar back pain with radiculopathy affecting lower extremity: Status: Acute (9) Thrombocytopenia: Status: Acute (10) Acute hepatitis C: Status: Acute (11) Hypothyroid: Status: Acute Qualifiers: Hypothyroidism type: acquired Qualified Code(s): E03.9 - Hypothyroidism, unspecified (12) Hepatic encephalopathy: Status: Acute (13) Discitis of lumbosacral region: Status: Acute Additional A&P Information Patient presenting overnight with chief complaints of altered mental status noted by family over the last 3 to 4 days. Currently alert to person, to place, not to time, follows commands, complaining of lower back pain Altered mental status appears to be related to encephalopathy, differentials at this time include hepatic encephalopathy given elevated ammonia at 130, possible drug overdose given initial response to Narcan, vertebral osteomyelitis CT head without acute intracranial events. U tox positive for marijuana, Ethyl alcohol level less than 10. Ammonia level 91, continue t lactulose 20 g every 6 hours, titrate to 4-5 bowel movements per day. Additionally start rifaximin monitor for improvement in mentation. Mildly elevated transaminases, T bili 1.4, CT abdomen from March 2021 without any noted cirrhosis. Hepatic steatosis was seen with normal portal vein. Mildly hydropic gallbladder with small stones noted at the time. No current signs of acute cholecystitis. Hepatitis C screening positive, will likely need outpatient follow-up. Has elevated alk phos, elevated LFTs, repeat CAT scan of the abdomen shows cholelithiasis, Hypokalemia, resolved, resolved Hypomagnesemia, 1.5, will replace UA positive for nitrate, urine cultures positive for ESBL E. coli, broaden antibiotic coverage to Zosyn Thrombocytopenia, likely secondary acute hep C Anemia, likely secondary to acute hep C Osteomyelitis, discitis lower lumbar spine CT scan as of the abdomen pelvis shows Lumbosacral spine erosive changes with pathologic versus chronic fracture deformities of L5 and S1. Erosive arthritis, osteomyelitis, neoplastic process are considerations. MRI of the lumbar spine with contrast is recommended. ESR 82 (chronically 70-100) pro-Roland 0.2 CRP 10.7 Is able to ambulate, no loss of sensation bilateral extremities, but does complain of shooting pain from the lower lumbar spine down the left lower extremity History of MSSA septicemia January 2021, source unclear at the time, however appeared to be related to history of IV drug use. Endocarditis was ruled out with RENEE. Patient has also been complaining of chronic back pain since then. Small foci of air within the disc of L4-L5 and L5-S1 were noted also along the right psoas and posterior soft tissues of the lumbar spine, this was thought to be related to lumbar puncture that was attempted prior to this CAT scan. -CT scan of the lumbar spine showed 1. Destructive endplate changes at L4-L5 and L5-S1 with destructive lytic lesions in the L4, L5, and S1 bodies. This is felt to most likely represent osteomyelitis discitis, as it crosses the disc spaces. A malignant neoplastic process is considered much less likely. 2. Thickening of the ventral epidural space at L4-L5 is suspicious for an epidural abscess. 3. Mild pathologic fracture of superior L5. 4. Follow-up of these findings with MRI without and with IV gadolinium is recommended. -Blood culture showing viridans strep, susceptibilities pending, repeat blood cultures pending negative so far -Continue vancomycin, Zosyn -On discharge will need Vanco, ciprofloxacin for osteomyelitis, Macrobid for ESBL UTI -We will need 6 weeks of IV antibiotics, vancomycin, Vanco trough 32.6, redraw this evening, dose appropriately by pharmacy -Agreeable to home health IV infusion will set up for hopefully tomorrow - Attestations Medical Necessity Statement*: Patient needs to be in the hospital for IV antibiotics. 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
[2021-08-06 20:19] LABS: Glucose Point of Care 149 mg/dL (70-110)
[2021-08-07] VITALS (9 sets, daily range): BP systolic 119–149; BP diastolic 73–83; PULSE 61–71; RESP 16–20; TEMP 36.4–36.7; O2SAT 92–100
[2021-08-07] MEDS: oxyCODONE 5 mg IR Tab/Cap PO ×3 (02:47→18:01)
[2021-08-07] MEDS: piperacillin-tazobactam 3.375 GM in sodium chloride 0.9% (plus) 50 ML IV ×2 (05:00→15:24)
[2021-08-07 06:37] LABS: Glucose Point of Care 143 mg/dL (70-110)
[2021-08-07] MEDS: insulin lispro 100 unit/1 mL SUBCUT ×3 (08:09→21:26)
[2021-08-07] MEDS: thiamine 100 mg Tablet PO (08:10)
[2021-08-07] MEDS: amlodipine 10 mg Tablet PO (08:10)
[2021-08-07] MEDS: levothyroxine 100 mcg Tablet PO (08:10)
[2021-08-07] MEDS: propranolol 40 mg Tablet PO ×2 (08:10→17:27)
[2021-08-07] MEDS: clotrimazole 1% cream 30 gm 1 APPLIC TOPICAL ×2 (08:10→17:27)
[2021-08-07] MEDS: folic acid 1 mg Tablet PO (08:10)
[2021-08-07] MEDS: vancomycin 1,500 MG/300 ML PIGGYBACK 200 MG IV ×2 (09:22→21:27)
[2021-08-07 12:30] LABS: Glucose Point of Care 148 mg/dL (70-110)
[2021-08-07] MEDS: lactulose oral liq 20 gm/30 mL UDC PO (12:57)
--- NOTE | 2021-08-07 14:13 | PC.CHAP ---
Pastoral Care Encounter/Spiritual Assessment Type of Contact [] Declined pilling machine operator visit [] Patient/Family/Request visit [] Outpatient visit [xx] Follow-up visit [] Physician referral [] Code/Alert [] Routine visit [] Staff referral [] Actively dying [] Patient sleeping [] Family support [] [] Out of room [] Palliative care [] [xx] Receiving care in room [] Pre-surgical visit [] Trauma [xx] Long length of stay [] ICU visit [] Other: Relational/Emotional Strength [] Patient feels connected with others/family/visitors/staff [] Distress [] Loneliness/isolation [] Abandonment Spirituality of Patient [] Person of Connie [] Attends Cheondoism of their Connie [] Believes in Prayer [] Reads Bible or Yarsani materials [] There are Spiritual issues to be addressed Certified Health Education Specialist Interventions [] Prayer [] Active listening [] Non-anxious presence [] Spiritual/emotional support [] Crisis/trauma care [] Spiritual counseling [] Bereavement support [] Provided bereavement packet [] Provided Bible/devotional materials [] Provided toy/stuffed animal, coloring book to patient or family member [] Provided Communion [] Anointing/[place] [] Salvation [] Completed spiritual assessment [] Other: Impact on Illness or Injury [] Angry [] Fearful [] Anxious [] Often cries [] Exhaustion [] Unable to work [] Unable to attend mormon [] Unable to walk/stand [] Unable to read [] Unable to drive [] Unable to eat/drink [] Unable to sleep [] Unable to be with family [] Patient intubated [] Other: Summary Doctor was with patient. Follow up later. Time spent with patient
--- NOTE | 2021-08-07 16:48 | P.PN_ITS ---
Subjective Subjective: Interval history: Patient was seen and examined this morning, no acute events overnight. Medications: Reviewed: Yes Medication Review Details: Generic Name Dose Route Start Last Admin Trade Name Freq PRN Reason Stop Dose Admin Amlodipine Besylat e 10 mg 07/28/21 09:00 08/03/21 08:10 Amlodipine 10 Mg Tablet PO 10 mg DAILY LEILA Administration Clonidine HCl 0.1 mg 07/28/21 18:00 08/03/21 08:08 Clonidine 0.1 Mg Tablet PO Not Given BID LEILA Folic Acid 1 mg 07/28/21 09:00 08/03/21 08:10 Folic Acid 1 Mg Tablet PO 1 mg DAILY LEILA Administration Piperacillin Sod/T azobactam 50 mls @ 12.5 mls /hr 07/30/21 17:30 08/03/21 10:18 Sod 3.375 gm/ So dium Chloride IV 12.5 mls/hr Q8H LEILA Administration Vancomycin/PEG/NAD A/Lysine/Water 1,500 mg in 300 m ls @ 200 mls/hr 07/31/21 21:00 08/03/21 09:46 Vancocin IV Infused Q12H LEILA Infusion Insulin Detemir 10 unit 07/28/21 20:00 08/03/21 08:07 Insulin Detemir 100 Units/1 Ml SUBCUT 10 unit Q12H LEILA Administration Insulin Human Lisp ro 0 unit 07/28/21 08:00 08/03/21 12:02 Insulin Lispro 1 00 Unit/1 Ml SUBCUT 6 unit WM&BEDTIME LEILA Administration Protocol Lactulose 20 gm 07/28/21 05:45 08/03/21 12:03 Lactulose Oral L iq 20 Gm/30 Ml Udc PO Not Given Q6H LEILA Levothyroxine Sodi um 100 mcg 07/29/21 09:00 08/03/21 08:10 Levothyroxine 10 0 Mcg Tablet PO 100 mcg DAILY LEILA Administration Oxycodone HCl 5 mg 07/31/21 09:31 08/03/21 11:12 Oxycodone 5 Mg I r Tab/Cap PO 5 mg Q4H PRN Administration MODERATE PAIN Propranolol HCl 40 mg 07/28/21 09:00 08/03/21 08:07 Propranolol 40 M g Tablet PO 40 mg BID LEILA Administration Rifaximin 550 mg 07/28/21 09:00 08/03/21 08:16 Rifaximin 550 Mg Tablet PO 550 mg BID LEILA Administration Protocol Thiamine Mononitra te 100 mg 07/28/21 09:00 08/03/21 08:07 Thiamine 100 Mg Tablet PO 100 mg DAILY LEILA Administration Vitals/I&O/Wt Last Vital Signs Temp 98.0 F 08/07/21 15:47 Pulse 68 08/07/21 15:47 Resp 16 08/07/21 15:47 BP 119/77 08/07/21 15:47 Pulse Ox 96 08/07/21 15:47 08/07/21 08/07/21 08/07/21 06:59 14:59 22:59 Intake Total 830 / 3270 950 / 950 Balance 830 / 3270 950 / 950 Weight last 48 hrs Weight 110.858 kg Weight 113.035 kg Physical Exam Const: COMMON NORMALS: patient oriented x3 HENMT: COMMON NORMALS: normocephalic and atraumatic HEAD & SCALP: normocephalic and atraumatic Resp: COMMON NORMALS: clear to auscultation bilaterally AUSCULTATION: clear to auscultation bilaterally Cardio: COMMON NORMALS: regular rate, regular rhythm, S1 normal heart sound present, S2 normal heart sound present, No gallops present (Cardio), No murmurs present (Cardio), No rub (Cardio) and Peripheral pulses 2+ throughout RATE: regular rate RHYTHM: regular rhythm HEART SOUNDS: S1 normal heart sound present and S2 normal heart sound present PERIPHERAL PULSES: Peripheral pulses 2+ throughout GI: COMMON NORMALS: Normal to inspection, nondistended, normoactive bowel sounds present, Soft to palpation, non-tender, No hepatosplenomegaly present and no masses AUSCULTATION: Yes normoactive bowel sounds PALPATION: Yes Soft to palpation and Yes No hepatosplenomegaly present RECTAL EXAM: deferred Extremity: COMMON NORMALS: no clubbing, cyanosis or edema and no pedal edema Neuro: COMMON NORMALS: patient oriented x3 Data : 08/06/21 05:24 08/06/21 05:24 A&P Assessment and plan (1) Hypokalemia: Status: Acute (2) Altered mental status: Status: Acute (3) Encephalopathy: Status: Acute (4) Acute cystitis: Status: Acute (5) Anemia: Status: Acute (6) Hypertension: Status: Acute Qualifiers: Hypertension type: essential hypertension Qualified Code(s): I10 - Essential (primary) hypertension (7) Diabetes mellitus, type II: Status: Acute Qualifiers: Diabetes mellitus fci insulin use: unspecified fci insulin use status Diabetes mellitus complication status: with other specified complication Qualified Code(s): E11.69 - Type 2 diabetes mellitus with other specified complication (8) Lumbar back pain with radiculopathy affecting lower extremity: Status: Acute (9) Thrombocytopenia: Status: Acute (10) Acute hepatitis C: Status: Acute (11) Hypothyroid: Status: Acute Qualifiers: Hypothyroidism type: acquired Qualified Code(s): E03.9 - Hypothyroidism, unspecified (12) Hepatic encephalopathy: Status: Acute (13) Discitis of lumbosacral region: Status: Acute Additional A&P Information Patient presenting overnight with chief complaints of altered mental status noted by family over the last 3 to 4 days. Currently alert to person, to place, not to time, follows commands, complaining of lower back pain Altered mental status appears to be related to encephalopathy, differentials at this time include hepatic encephalopathy given elevated ammonia at 130, possible drug overdose given initial response to Narcan, vertebral osteomyelitis CT head without acute intracranial events. U tox positive for marijuana, Ethyl alcohol level less than 10. Ammonia level 91, continue t lactulose 20 g every 6 hours, titrate to 4-5 bowel movements per day. Additionally start rifaximin monitor for improvement in mentation. Mildly elevated transaminases, T bili 1.4, CT abdomen from March 2021 without any noted cirrhosis. Hepatic steatosis was seen with normal portal vein. Mildly hydropic gallbladder with small stones noted at the time. No current signs of acute cholecystitis. Hepatitis C screening positive, will likely need outpatient follow-up. Has elevated alk phos, elevated LFTs, repeat CAT scan of the abdomen shows cholelithiasis, Hypokalemia, resolved, resolved Hypomagnesemia, 1.5, will replace UA positive for nitrate, urine cultures positive for ESBL E. coli, broaden antibiotic coverage to Zosyn Thrombocytopenia, likely secondary acute hep C Anemia, likely secondary to acute hep C Osteomyelitis, discitis lower lumbar spine CT scan as of the abdomen pelvis shows Lumbosacral spine erosive changes with pathologic versus chronic fracture deformities of L5 and S1. Erosive arthritis, osteomyelitis, neoplastic process are considerations. MRI of the lumbar spine with contrast is recommended. ESR 82 (chronically 70-100) pro-Roland 0.2 CRP 10.7 Is able to ambulate, no loss of sensation bilateral extremities, but does complain of shooting pain from the lower lumbar spine down the left lower ex tremity History of MSSA septicemia January 2021, source unclear at the time, however appeared to be related to history of IV drug use. Endocarditis was ruled out with RENEE. Patient has also been complaining of chronic back pain since then. Small foci of air within the disc of L4-L5 and L5-S1 were noted also along the right psoas and posterior soft tissues of the lumbar spine, this was thought to be related to lumbar puncture that was attempted prior to this CAT scan. -CT scan of the lumbar spine showed 1. Destructive endplate changes at L4-L5 and L5-S1 with destructive lytic lesions in the L4, L5, and S1 bodies. This is felt to most likely represent osteomyelitis discitis, as it crosses the disc spaces. A malignant neoplastic process is considered much less likely. 2. Thickening of the ventral epidural space at L4-L5 is suspicious for an epidural abscess. 3. Mild pathologic fracture of superior L5. 4. Follow-up of these findings with MRI without and with IV gadolinium is recommended. -Blood culture showing viridans strep, susceptibilities pending, repeat blood cultures pending negative so far -Continue vancomycin, Zosyn -On discharge will need Vanco, ciprofloxacin for osteomyelitis, Macrobid for ESBL UTI -We will need 6 weeks of IV antibiotics, vancomycin, Vanco trough 32.6, redraw this evening, dose appropriately by pharmacy -Agreeable to home health IV infusion will set up for hopefully tomorrow - Attestations Medical Necessity Statement*: Patient needs to be in hospital for I.V Abxs Coding Level of Care Code Acute [employer] Analyst for [facility] Fwd Diagnoses Hypokalemia E87.6 Altered mental status R41.82 Encephalopathy G93.40 Acute cystitis N30.00 Anemia D64.9 Hypertension I10 Hypertension type: essential hypertension Diabetes mellitus, type II E11.69 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
[2021-08-07 17:16] LABS: Glucose Point of Care 135 mg/dL (70-110)
[2021-08-07 20:42] LABS: Glucose Point of Care 175 mg/dL (70-110)
[2021-08-08] VITALS (11 sets, daily range): BP systolic 112–144; BP diastolic 70–85; PULSE 62–65; RESP 16–20; TEMP 36.4–36.9; O2SAT 95–99
[2021-08-08] MEDS: piperacillin-tazobactam 3.375 GM in sodium chloride 0.9% (plus) 50 ML IV ×4 (00:34→23:40)
[2021-08-08] MEDS: lactulose oral liq 20 gm/30 mL UDC PO ×2 (00:34→05:21)
[2021-08-08] MEDS: oxyCODONE 5 mg IR Tab/Cap PO ×5 (00:39→20:34)
[2021-08-08] MEDS: levothyroxine 100 mcg Tablet PO (08:01)
[2021-08-08] MEDS: amlodipine 10 mg Tablet PO (08:01)
[2021-08-08] MEDS: thiamine 100 mg Tablet PO (08:01)
[2021-08-08] MEDS: propranolol 40 mg Tablet PO ×2 (08:01→17:21)
[2021-08-08] MEDS: folic acid 1 mg Tablet PO (08:01)
[2021-08-08] MEDS: insulin lispro 100 unit/1 mL SUBCUT ×2 (08:03→20:46)
[2021-08-08] MEDS: clotrimazole 1% cream 30 gm 1 APPLIC TOPICAL ×2 (08:03→17:21)
[2021-08-08] MEDS: vancomycin 1,500 MG/300 ML PIGGYBACK 200 MG IV ×2 (09:36→20:34)
[2021-08-08 17:25] LABS: Glucose Point of Care 155 mg/dL (70-110)
[2021-08-08 17:26] LABS: Glucose Point of Care 140 mg/dL (70-110)
[2021-08-08 17:26] LABS: Glucose Point of Care 138 mg/dL (70-110)
--- NOTE | 2021-08-08 19:09 | P.PN_ITS ---
Subjective Subjective: Interval history: Patient was seen and examined this morning, no acute events overnight. Medications: Reviewed: Yes Medication Review Details: Generic Name Dose Route Start Last Admin Trade Name Freq PRN Reason Stop Dose Admin Amlodipine Besylat e 10 mg 07/28/21 09:00 08/03/21 08:10 Amlodipine 10 Mg Tablet PO 10 mg DAILY LEILA Administration Clonidine HCl 0.1 mg 07/28/21 18:00 08/03/21 08:08 Clonidine 0.1 Mg Tablet PO Not Given BID LEILA Folic Acid 1 mg 07/28/21 09:00 08/03/21 08:10 Folic Acid 1 Mg Tablet PO 1 mg DAILY LEILA Administration Piperacillin Sod/T azobactam 50 mls @ 12.5 mls /hr 07/30/21 17:30 08/03/21 10:18 Sod 3.375 gm/ So dium Chloride IV 12.5 mls/hr Q8H LEILA Administration Vancomycin/PEG/NAD A/Lysine/Water 1,500 mg in 300 m ls @ 200 mls/hr 07/31/21 21:00 08/03/21 09:46 Vancocin IV Infused Q12H LEILA Infusion Insulin Detemir 10 unit 07/28/21 20:00 08/03/21 08:07 Insulin Detemir 100 Units/1 Ml SUBCUT 10 unit Q12H LEILA Administration Insulin Human Lisp ro 0 unit 07/28/21 08:00 08/03/21 12:02 Insulin Lispro 1 00 Unit/1 Ml SUBCUT 6 unit WM&BEDTIME LEILA Administration Protocol Lactulose 20 gm 07/28/21 05:45 08/03/21 12:03 Lactulose Oral L iq 20 Gm/30 Ml Udc PO Not Given Q6H LEILA Levothyroxine Sodi um 100 mcg 07/29/21 09:00 08/03/21 08:10 Levothyroxine 10 0 Mcg Tablet PO 100 mcg DAILY LEILA Administration Oxycodone HCl 5 mg 07/31/21 09:31 08/03/21 11:12 Oxycodone 5 Mg I r Tab/Cap PO 5 mg Q4H PRN Administration MODERATE PAIN Propranolol HCl 40 mg 07/28/21 09:00 08/03/21 08:07 Propranolol 40 M g Tablet PO 40 mg BID LEILA Administration Rifaximin 550 mg 07/28/21 09:00 08/03/21 08:16 Rifaximin 550 Mg Tablet PO 550 mg BID LEILA Administration Protocol Thiamine Mononitra te 100 mg 07/28/21 09:00 08/03/21 08:07 Thiamine 100 Mg Tablet PO 100 mg DAILY LEILA Administration Vitals/I&O/Wt Last Vital Signs Temp 98.0 F 08/08/21 16:00 Pulse 62 08/08/21 16:00 Resp 18 08/08/21 16:00 BP 144/74 08/08/21 16:00 Pulse Ox 96 08/08/21 16:00 08/08/21 08/08/21 08/08/21 06:59 14:59 22:59 Intake Total 630 / 2350 650 / 650 240 / 890 Balance 630 / 2348 650 / 650 240 / 890 Weight last 48 hrs Weight 104.78 kg Weight 110.858 kg Physical Exam Const: COMMON NORMALS: patient oriented x3 HENMT: COMMON NORMALS: normocephalic and atraumatic HEAD & SCALP: normoc ephalic and atraumatic Resp: COMMON NORMALS: clear to auscultation bilaterally AUSCULTATION: clear to auscultation bilaterally Cardio: COMMON NORMALS: regular rate, regular rhythm, S1 normal heart sound present, S2 normal heart sound present, No gallops present (Cardio), No murmurs present (Cardio), No rub (Cardio) and Peripheral pulses 2+ throughout RATE: regular rate RHYTHM: regular rhythm HEART SOUNDS: S1 normal heart sound present and S2 normal heart sound present PERIPHERAL PULSES: Peripheral pulses 2+ throughout GI: COMMON NORMALS: Normal to inspection, nondistended, normoactive bowel sounds present, Soft to palpation, non-tender, No hepatosplenomegaly present and no masses AUSCULTATION: Yes normoactive bowel sounds PALPATION: Yes Soft to palpation and Yes No hepatosplenomegaly present RECTAL EXAM: deferred Extremity: COMMON NORMALS: no clubbing, cyanosis or edema and no pedal edema Neuro: COMMON NORMALS: patient oriented x3 Data : 08/06/21 05:24 08/06/21 05:24 A&P Assessment and plan (1) Hypokalemia: Status: Acute (2) Altered mental status: Status: Acute (3) Encephalopathy: Status: Acute (4) Acute cystitis: Status: Acute (5) Anemia: Status: Acute (6) Hypertension: Status: Acute Qualifiers: Hypertension type: essential hypertension Qualified Code(s): I10 - Essential (primary) hypertension (7) Diabetes mellitus, type II: Status: Acute Qualifiers: Diabetes mellitus snf insulin use: unspecified director long term care insulin use status Diabetes mellitus complication status: with other specified complication Qualified Code(s): E11.69 - Type 2 diabetes mellitus with other specified complication (8) Lumbar back pain with radiculopathy affecting lower extremity: Status: Acute (9) Thrombocytopenia: Status: Acute (10) Acute hepatitis C: Status: Acute (11) Hypothyroid: Status: Acute Qualifiers: Hypothyroidism type: acquired Qualified Code(s): E03.9 - Hypothyroidism, unspecified (12) Hepatic encephalopathy: Status: Acute (13) Discitis of lumbosacral region: Status: Acute Additional A&P Information Patient presenting overnight with chief complaints of altered mental status noted by family over the last 3 to 4 days. Currently alert to person, to place, not to time, follows commands, complaining of lower back pain Altered mental status appears to be related to encephalopathy, differentials at this time include hepatic encephalopathy given elevated ammonia at 130, possible drug overdose given initial response to Narcan, vertebral osteomyelitis CT head without acute intracranial events. U tox positive for marijuana, Ethyl alcohol level less than 10. Ammonia level 91, continue t lactulose 20 g every 6 hours, titrate to 4-5 bowel movements per day. Additionally start rifaximin monitor for improvement in mentation. Mildly elevated transaminases, T bili 1.4, CT abdomen from March 2021 without any noted cirrhosis. Hepatic steatosis was seen with normal portal vein. Mildly hydropic gallbladder with small stones noted at the time. No current signs of acute cholecystitis. Hepatitis C screening positive, will likely need outpatient follow-up. Has elevated alk phos, elevated LFTs, repeat CAT scan of the abdomen shows cholelithiasis, Hypokalemia, resolved, resolved Hypomagnesemia, 1.5, will replace UA positive for nitrate, urine cultures positive for ESBL E. coli, broaden antibiotic coverage to Zosyn Thrombocytopenia, likely secondary acute hep C Anemia, likely secondary to acute hep C Osteomyelitis, discitis lower lumbar spine CT scan as of the abdomen pelvis shows Lumbosacral spine erosive changes with pathologic versus chronic fracture deformities of L5 and S1. Erosive arthritis, osteomyelitis, neoplastic process are considerations. MRI of the lumbar spine with contrast is recommended. ESR 82 (chronically 70-100) pro-Roland 0.2 CRP 10.7 Is able to ambulate, no loss of sensation bilateral extremities, but does complain of shooting pain from the lower lumbar spine down the left lower extremity History of MSSA septicemia January 2021, source unclear at the time, however appeared to be related to history of IV drug use. Endocarditis was ruled out with RENEE. Patient has also been complaining of chronic back pain since then. Small foci of air within the disc of L4-L5 and L5-S1 were noted also along the right psoas and posterior soft tissues of the lumbar spine, this was thought to be related to lumbar puncture that was attempted prior to this CAT scan. -CT scan of the lumbar spine showed 1. Destructive endplate changes at L4-L5 and L5-S1 with destructive lytic lesions in the L4, L5, and S1 bodies. This is felt to most likely represent osteomyelitis discitis, as it crosses the disc spaces. A malignant neoplastic process is considered much less likely. 2. Thickening of the ventral epidural space at L4-L5 is suspicious for an epidural abscess. 3. Mild pathologic fracture of superior L5. 4. Follow-up of these findings with MRI without and with IV gadolinium is recommended. -Blood culture showing viridans strep, susceptibilities pending, repeat blood cultures pending negative so far -Continue vancomycin, Zosyn -On discharge will need Vanco, ciprofloxacin for osteomyelitis, Macrobid for ESBL UTI -We will need 6 weeks of IV antibiotics, vancomycin, Vanco trough 32.6, redraw this evening, dose appropriately by pharmacy -Agreeable to home health IV infusion will set up for hopefully tomorrow - Attestations Medical Necessity Statement*: Patient needs to be in hospital for IV antibiotics. Coding Level of Care Code Acute Online Marketing Strategist for [facility] Fwd Diagnoses Hypokalemia E87.6 Altered mental status R41.82 Encephalopathy G93.40 Acute cystitis N30.00 Anemia D64.9 Hypertension I10 Hypertension type: essential hypertension Diabetes mellitus, type II E11.69 Diabetes mellitus director long term care insulin use: unspecified snf insulin use status Diabetes mellitus complication status: with other specified complication Lumbar back pain with radiculopathy affecting lower extremity M54.16 Thrombocytopenia D69.6 Acute hepatitis C B17.10 Hypothyroid E03.9 Hypothyroidism type: acquired Hepatic encephalopathy K72.90 Discitis of lumbosacral region M46.47
[2021-08-08 20:16] LABS: Glucose Point of Care 195 mg/dL (70-110)
[2021-08-09] VITALS (11 sets, daily range): BP systolic 105–144; BP diastolic 65–79; PULSE 56–72; RESP 14–18; TEMP 36.5–36.8; O2SAT 92–100
[2021-08-09] MEDS: oxyCODONE 5 mg IR Tab/Cap PO ×5 (01:48→22:08)
[2021-08-09] MEDS: piperacillin-tazobactam 3.375 GM in sodium chloride 0.9% (plus) 50 ML IV ×3 (05:22→23:23)
--- NOTE | 2021-08-09 05:49 | PC.NURSE ---
Summary Pt has been awake all night. IV antibiotics infusing into the R PICC without difficulty. OxyIR given times 2 for pain to back/hip.
[2021-08-09 06:42] LABS: Glucose Point of Care 197 mg/dL (70-110)
[2021-08-09] MEDS: insulin lispro 100 unit/1 mL SUBCUT ×2 (08:15→22:13)
[2021-08-09] MEDS: cloNIDine 0.1 mg Tablet PO (08:16)
[2021-08-09] MEDS: clotrimazole 1% cream 30 gm 1 APPLIC TOPICAL ×2 (08:16→16:42)
[2021-08-09] MEDS: thiamine 100 mg Tablet PO (08:16)
[2021-08-09] MEDS: folic acid 1 mg Tablet PO (08:16)
[2021-08-09] MEDS: propranolol 40 mg Tablet PO ×2 (08:16→16:42)
[2021-08-09] MEDS: levothyroxine 100 mcg Tablet PO (08:16)
[2021-08-09] MEDS: amlodipine 10 mg Tablet PO (08:16)
[2021-08-09] MEDS: vancomycin 1,500 MG/300 ML PIGGYBACK 200 MG IV ×2 (10:00→20:48)
[2021-08-09 12:14] LABS: Glucose Point of Care 135 mg/dL (70-110)
--- NOTE | 2021-08-09 14:17 | PM.PN ---
Subjective Subjective: Interval history: Patient was seen and examined this morning, no acute events overnight. Medications: Reviewed: Yes Medication Review Details: Generic Name Dose Route Start Last Admin Trade Name Freq PRN Reason Stop Dose Admin Amlodipine Besylat e 10 mg 07/28/21 09:00 08/03/21 08:10 Amlodipine 10 Mg Tablet PO 10 mg DAILY LEILA Administration Clonidine HCl 0.1 mg 07/28/21 18:00 08/03/21 08:08 Clonidine 0.1 Mg Tablet PO Not Given BID LEILA Folic Acid 1 mg 07/28/21 09:00 08/03/21 08:10 Folic Acid 1 Mg Tablet PO 1 mg DAILY LEILA Administration Piperacillin Sod/T azobactam 50 mls @ 12.5 mls /hr 07/30/21 17:30 08/03/21 10:18 Sod 3.375 gm/ So dium Chloride IV 12.5 mls/hr Q8H LEILA Administration Vancomycin/PEG/NAD A/Lysine/Water 1,500 mg in 300 m ls @ 200 mls/hr 07/31/21 21:00 08/03/21 09:46 Vancocin IV Infused Q12H LEILA Infusion Insulin Detemir 10 unit 07/28/21 20:00 08/03/21 08:07 Insulin Detemir 100 Units/1 Ml SUBCUT 10 unit Q12H LEILA Administration Insulin Human Lisp ro 0 unit 07/28/21 08:00 08/03/21 12:02 Insulin Lispro 1 00 Unit/1 Ml SUBCUT 6 unit WM&BEDTIME LEILA Administration Protocol Lactulose 20 gm 07/28/21 05:45 08/03/21 12:03 Lactulose Oral L iq 20 Gm/30 Ml Udc PO Not Given Q6H LEILA Levothyroxine Sodi um 100 mcg 07/29/21 09:00 08/03/21 08:10 Levothyroxine 10 0 Mcg Tablet PO 100 mcg DAILY LEILA Administration Oxycodone HCl 5 mg 07/31/21 09:31 08/03/21 11:12 Oxycodone 5 Mg I r Tab/Cap PO 5 mg Q4H PRN Administration MODERATE PAIN Propranolol HCl 40 mg 07/28/21 09:00 08/03/21 08:07 Propranolol 40 M g Tablet PO 40 mg BID LEILA Administration Rifaximin 550 mg 07/28/21 09:00 08/03/21 08:16 Rifaximin 550 Mg Tablet PO 550 mg BID LEILA Administration Protocol Thiamine Mononitra te 100 mg 07/28/21 09:00 08/03/21 08:07 Thiamine 100 Mg Tablet PO 100 mg DAILY LEILA Administration Vitals/I&O/Wt Last Vital Signs Temp 97.8 F 08/09/21 12:00 Pulse 56 L 08/09/21 12:00 Resp 16 08/09/21 12:00 BP 117/69 08/09/21 12:00 Pulse Ox 96 08/09/21 12:00 08/08/21 08/09/21 08/09/21 22:59 06:59 14:59 Intake Total 590 / 1540 50 / 1590 360 / 360 Balance 590 / 1540 50 / 1590 360 / 360 Weight last 48 hrs Weight 104.78 kg Physical Exam Const: COMMON NORMALS: patient oriented x3 HENMT: COMMON NORMALS: normocephalic and atraumatic HEAD & SCALP: normocephalic and atraumatic Resp: COMMON NORMALS: clear to auscultation bilaterally AUSCULTATION: clear to auscultation bilaterally Cardio: COMMON NORMALS: regular rate, regular rhythm, S1 normal heart sound present, S2 normal heart sound present, No gallops present (Cardio), No murmurs present (Cardio), No rub (Cardio) and Peripheral pulses 2+ throughout RATE: regular rate RHYTHM: regular rhythm HEART SOUNDS: S1 normal heart sound present and S2 normal heart sound present PERIPHERAL PULSES: Peripheral pulses 2+ throughout GI: COMMON NORMALS: Normal to inspection, nondistended, normoactive bowel sounds present, Soft to palpation, non-tender, No hepatosplenomegaly present and no masses AUSCULTATION: Yes normoactive bowel sounds PALPATION: Yes Soft to palpation and Yes No hepatosplenomegaly present RECTAL EXAM: deferred Extremity: COMMON NORMALS: no clubbing, cyanosis or edema and no pedal edema Neuro: COMMON NORMALS: patient oriented x3 Data : 08/06/21 05:24 08/06/21 05:24 A&P Assessment and plan (1) Hypokalemia: Status: Acute (2) Altered mental status: Status: Acute (3) Encephalopathy: Status: Acute (4) Acute cystitis: Status: Acute (5) Anemia: Status: Acute (6) Hypertension: Status: Acute Qualifiers: Hypertension type: essential hypertension Qualified Code(s): I10 - Essential (primary) hypertension (7) Diabetes mellitus, type II: Status: Acute Qualifiers: Diabetes mellitus 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 operator insulin use: unspecified 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 operator insulin use status Diabetes mellitus complication status: with other specified complication Qualified Code(s): E11.69 - Type 2 diabetes mellitus with other specified complication (8) Lumbar back pain with radiculopathy affecting lower extremity: Status: Acute (9) Thrombocytopenia: Status: Acute (10) Acute hepatitis C: Status: Acute (11) Hypothyroid: Status: Acute Qualifiers: Hypothyroidism type: acquired Qualified Code(s): E03.9 - Hypothyroidism, unspecified (12) Hepatic encephalopathy: Status: Acute (13) Discitis of lumbosacral region: Status: Acute Additional A&P Information Patient presenting overnight with chief complaints of altered mental status noted by family over the last 3 to 4 days. Currently alert to person, to place, not to time, follows commands, complaining of lower back pain Altered mental status appears to be related to encephalopathy, differentials at this time include hepatic encephalopathy given elevated ammonia at 130, possible drug overdose given initial response to Narcan, vertebral osteomyelitis CT head without acute intracranial events. U tox positive for marijuana, Ethyl alcohol level less than 10. Ammonia level 91, continue t lactulose 20 g every 6 hours, titrate to 4-5 bowel movements per day. Additionally start rifaximin monitor for improvement in mentation. Mildly elevated transaminases, T bili 1.4, CT abdomen from March 2021 without any noted cirrhosis. Hepatic steatosis was seen with normal portal vein. Mildly hydropic gallbladder with small stones noted at the time. No current signs of acute cholecystitis. Hepatitis C screening positive, will likely need outpatient follow-up. Has elevated alk phos, elevated LFTs, repeat CAT scan of the abdomen shows cholelithiasis, Hypokalemia, resolved, resolved Hypomagnesemia, 1.5, will replace UA positive for nitrate, urine cultures positive for ESBL E. coli, broaden antibiotic coverage to Zosyn Thrombocytopenia, likely secondary acute hep C Anemia, likely secondary to acute hep C Osteomyelitis, discitis lower lumbar spine CT scan as of the abdomen pelvis shows Lumbosacral spine erosive changes with pathologic versus chronic fracture deformities of L5 and S1. Erosive arthritis, osteomyelitis, neoplastic process are considerations. MRI of the lumbar spine with contrast is recommended. ESR 82 (chronically 70-100) pro-Roland 0.2 CRP 10.7 Is able to ambulate, no loss of sensation bilateral extremities, but does complain of shooting pain from the lower lumbar spine down the left lower extremity History of MSSA septicemia January 2021, source unclear at the time, however appeared to be related to history of IV drug use. Endocarditis was ruled out with RENEE. Patient has also been complaining of chronic back pain since then. Small foci of air within the disc of L4-L5 and L5-S1 were noted also along the right psoas and posterior soft tissues of the lumbar spine, this was thought to be related to lumbar puncture that was attempted prior to this CAT scan. -CT scan of the lumbar spine showed 1. Destructive endplate changes at L4-L5 and L5-S1 with destructive lytic lesions in the L4, L5, and S1 bodies. This is felt to most likely represent osteomyelitis discitis, as it crosses the disc spaces. A malignant neoplastic process is considered much less likely. 2. Thickening of the ventral epidural space at L4-L5 is suspicious for an epidural abscess. 3. Mild pathologic fracture of superior L5. 4. Follow-up of these findings with MRI without and with IV gadolinium is recommended. -Blood culture showing viridans strep, susceptibilities pending, repeat blood cultures pending negative so far -Continue vancomycin, Zosyn -On discharge will need Vanco, ciprofloxacin for osteomyelitis, Macrobid for ESBL UTI -We will need 6 weeks of IV antibiotics, vancomycin, Vanco trough 32.6, redraw this evening, dose appropriately by pharmacy -Agreeable to home health IV infusion will set up for hopefully tomorrow - Attestations Medical Necessity Statement*: Currently in hospital for need for IV antibiotics, awaiting placement. Coding Level of Care Code Acute Bomb Squad Officer for [facility] Fwd Diagnoses Hypokalemia E87.6 Altered mental status R41.82 Encephalopathy G93.40 Acute cystitis N30.00 Anemia D64.9 Hypertension I10 Hypertension type: essential hypertension Diabetes mellitus, type II E11.69 Diabetes mellitus correction insulin use: unspecified correction insulin use status Diabetes mellitus complication status: with other specified complication Lumbar back pain with radiculopathy affecting lower extremity M54.16 Thrombocytopenia D69.6 Acute hepatitis C B17.10 Hypothyroid E03.9 Hypothyroidism type: acquired Hepatic encephalopathy K72.90 Discitis of lumbosacral region M46.47
[2021-08-09 16:51] LABS: Glucose Point of Care 127 mg/dL (70-110)
[2021-08-09 21:47] LABS: Glucose Point of Care 172 mg/dL (70-110)
[2021-08-10] VITALS (10 sets, daily range): BP systolic 89–154; BP diastolic 39–74; PULSE 61–69; RESP 16–18; TEMP 36.4–36.7; O2SAT 94–100
[2021-08-10] MEDS: oxyCODONE 5 mg IR Tab/Cap PO ×4 (02:21→21:02)
[2021-08-10] MEDS: piperacillin-tazobactam 3.375 GM in sodium chloride 0.9% (plus) 50 ML IV ×3 (06:14→22:44)
[2021-08-10] MEDS: amlodipine 10 mg Tablet PO (09:17)
[2021-08-10] MEDS: thiamine 100 mg Tablet PO (09:17)
[2021-08-10] MEDS: levothyroxine 100 mcg Tablet PO (09:18)
[2021-08-10] MEDS: folic acid 1 mg Tablet PO (09:18)
[2021-08-10] MEDS: clotrimazole 1% cream 30 gm 1 APPLIC TOPICAL (09:22)
[2021-08-10] MEDS: propranolol 40 mg Tablet PO ×2 (09:22→18:06)
[2021-08-10] MEDS: vancomycin 1,500 MG/300 ML PIGGYBACK 200 MG IV ×2 (09:26→20:45)
[2021-08-10] MEDS: insulin lispro 100 unit/1 mL SUBCUT ×2 (12:52→18:06)
--- NOTE | 2021-08-10 13:55 | P.PN_ITS ---
Subjective Subjective: Interval history: Patient was seen this morning, afebrile overnight, no nausea, no vomiting, no shortness of breath Vitals/I&O/Wt Last Vital Signs Temp 97.6 F 08/10/21 11:36 Pulse 61 08/10/21 11:36 Resp 18 08/10/21 11:36 BP 106/62 08/10/21 11:36 Pulse Ox 96 08/10/21 11:36 08/09/21 08/10/21 08/10/21 22:59 06:59 14:59 Intake Total 830 / 1720 350 / 2070 590 / 590 Balance 830 / 1720 350 / 2070 590 / 590 Physical Exam Const: COMMON NORMALS: no acute distress and patient oriented x3 Resp: COMMON NORMALS: normal respiratory effort, No retractions, No use of accessory muscles and clear to auscultation bilaterally AUSCULTATION: clear to auscultation bilaterally Cardio: COMMON NORMALS: regular rate, regular rhythm, S1 normal heart sound present and S2 normal heart sound present RATE: regular rate RHYTHM: regular rhythm HEART SOUNDS: S1 normal heart sound present and S2 normal heart sound present GI: COMMON NORMALS: Normal to inspection, nondistended, normoactive bowel sounds present, Soft to palpation and non-tender PALPATION: Yes Soft to palpation Extremity: COMMON NORMALS: no pedal edema Neuro: COMMON NORMALS: patient oriented x3 Psych: COMMON NORMALS: mental status grossly normal Data : 08/06/21 05:24 08/06/21 05:24 A&P Assessment and plan (1) Hypokalemia: Status: Acute (2) Altered mental status: Status: Acute (3) Encephalopathy: Status: Acute (4) Acute cystitis: Status: Acute (5) Anemia: Status: Acute (6) Hypertension: Status: Acute Qualifiers: Hypertension type: essential hypertension Qualified Code(s): I10 - Essential (primary) hypertension (7) Diabetes mellitus, type II: Status: Acute Qualifiers: Diabetes mellitus jail insulin use: unspecified adjunct faculty for medical terminology insulin use status Diabetes mellitus complication status: with other specified complication Qualified Code(s): E11.69 - Type 2 diabetes mellitus with other specified complication (8) Lumbar back pain with radiculopathy affecting lower extremity: Status: Acute (9) Thrombocytopenia: Status: Acute (10) Acute hepatitis C: Status: Acute (11) Hypothyroid: Status: Acute Qualifiers: Hypothyroidism type: acquired Qualified Code(s): E03.9 - Hypothyroidism, unspecified (12) Hepatic encephalopathy: Status: Acute (13) Discitis of lumbosacral region: Status: Acute Additional A&P Information Osteomyelitis, discitis lower lumbar spine CT scan as of the abdomen pelvis shows Lumbosacral spine erosive changes with pathologic versus chronic fracture deformities of L5 and S1. Erosive arthritis, osteomyelitis, neoplastic process are considerations. MRI of the lumbar spine with contrast is recommended. ESR 82 (chronically 70-100) Is able to ambulate, no loss of sensation bilateral extremities, but does complain of shooting pain from the lower lumbar spine down the left lower extremity History of MSSA septicemia January 2021, source unclear at the time, however appeared to be related to history of IV drug use. Endocarditis was ruled out with RENEE. Patient has also been complaining of chronic back pain since then. Small foci of air within the disc of L4-L5 and L5-S1 were noted also along the right psoas and posterior soft tissues of the lumbar spine, this was thought to be related to lumbar puncture that was attempted prior to this CAT scan. -CT scan of the lumbar spine showed 1. Destructive endplate changes at L4-L5 and L5-S1 with destructive lytic lesions in the L4, L5, and S1 bodies. This is felt to most likely represent osteomyelitis discitis, as it crosses the disc spaces. A malignant neoplastic process is considered much less likely. 2. Thickening of the ventral epidural space at L4-L5 is suspicious for an epidural abscess. 3. Mild pathologic fracture of superior L5. 4. Follow-up of these findings with MRI without and with IV gadolinium is recommended. -Blood culture showing viridans strep, repeat blood cultures pending negative so far -Continue vancomycin, Zosyn -Zosyn for ESBL UTI -We will need 6 weeks of IV antibiotics, vancomycin, Vanco trough 13.9 dose appropriately by pharmacy -Given history of history of drug abuse, not a suitable candidate for home IV antibiotics, and given vancomycin dosing at twice daily, not a suitable candidate for outpatient IV antibiotics -Working on placement at facility for IV antibiotics Patient presenting overnight with chief complaints of altered mental status note d by family over the last 3 to 4 days. Currently alert to person, to place, not to time, follows commands, complaining of lower back pain Altered mental status appears to be related to encephalopathy, differentials at this time include hepatic encephalopathy given elevated ammonia at 130, possible drug overdose given initial response to Narcan, vertebral osteomyelitis CT head without acute intracranial events. U tox positive for marijuana, Ethyl alcohol level less than 10. Ammonia level 91, continue t lactulose 20 g every 6 hours, titrate to 4-5 bowel movements per day. Additionally start rifaximin monitor for improvement in mentation. Mildly elevated transaminases, T bili 1.4, CT abdomen from March 2021 without any noted cirrhosis. Hepatic steatosis was seen with normal portal vein. Mildly hydropic gallbladder with small stones noted at the time. No current signs of acute cholecystitis. Hepatitis C screening positive, will likely need outpatient follow-up. Has elevated alk phos, elevated LFTs, repeat CAT scan of the abdomen shows cholelithiasis, Hypokalemia, resolved, resolved Hypomagnesemia, resolved, monitor UA positive for nitrate, urine cultures positive for ESBL E. coli, on Zosyn Thrombocytopenia, likely secondary acute hep C Anemia, likely secondary to acute hep C Attestations Medical Necessity Statement*: Patient requires hospitalization for vertebral osteomyelitis, epidural abscess, discitis Coding Level of Care Code Acute Welding Specialist for [facility] Fwd Diagnoses Hypokalemia E87.6 Altered mental status R41.82 Encephalopathy G93.40 Acute cystitis N30.00 Anemia D64.9 Hypertension I10 Hypertension type: essential hypertension Diabetes mellitus, type II E11.69 Diabetes mellitus jail insulin use: unspecified adjunct faculty for medical terminology insulin use status Diabetes mellitus complication status: with other specified complication Lumbar back pain with radiculopathy affecting lower extremity M54.16 Thrombocytopenia D69.6 Acute hepatitis C B17.10 Hypothyroid E03.9 Hypothyroidism type: acquired Hepatic encephalopathy K72.90 Discitis of lumbosacral region M46.47
[2021-08-10 20:29] LABS: Vancomycin Trough 15.9 ug/mL (10-15)
[2021-08-10 21:05] LABS: Glucose Point of Care 186 mg/dL (70-110)
[2021-08-10 21:05] LABS: Glucose Point of Care 145 mg/dL (70-110)
[2021-08-10 21:05] LABS: Glucose Point of Care 183 mg/dL (70-110)
[2021-08-10 21:05] LABS: Glucose Point of Care 132 mg/dL (70-110)
[2021-08-10 21:05] LABS: Glucose Point of Care 119 mg/dL (70-110)
[2021-08-11] VITALS (11 sets, daily range): BP systolic 98–149; BP diastolic 58–84; PULSE 62–70; RESP 16–18; TEMP 36.6–37; O2SAT 96–100
[2021-08-11] MEDS: oxyCODONE 5 mg IR Tab/Cap PO ×5 (02:00→22:43)
[2021-08-11] MEDS: piperacillin-tazobactam 3.375 GM in sodium chloride 0.9% (plus) 50 ML IV (05:55)
[2021-08-11 06:06] LABS: Basophils % 0.6 %; Eosinophils # 0.1 10^3/uL (0.0-0.8); Eosinophils % 3.9 %; Hematocrit 41.6 % (37.0-47.0); Hemoglobin 12.3 g/dL (11.5-15.3); Lymphocytes # 1.8 10^3/uL (0.8-4.8); Lymphocytes % 51.5 %; Mean Corpuscular HGB Conc 29.6 g/dL (30.0-36.0); Mean Corpuscular Hemoglobin 21.3 pg (28.0-34.0); Mean Corpuscular Volume 72.1 fl (81-99); Mean Platelet Volume 9.5 fL (7.4-10.4); Monocytes # 0.5 10^3/uL (0.2-0.9); Monocytes % 14.3 %; Neutrophils # 1.06 10^3/uL (1.8-7.7); Neutrophils % 29.7 %; Nucleated Red Blood Cells % 0 %; Platelet Count 81 10^3/cmm (130-400); Red Blood Count 5.77 10^6/uL (4.1-5.3); Red Cell Distribution Width 19.9 % (12.1-15.1); White Blood Count 3.6 10^3/uL (4.0-10.0)
[2021-08-11 06:23] LABS: Glucose Point of Care 155 mg/dL (70-110)
[2021-08-11 06:26] LABS: Magnesium 1.6 mg/dL (1.7-2.3); Phosphorus 3.6 mg/dL (2.5-4.5)
[2021-08-11 06:32] LABS: Slide Review Slide Review Perform
[2021-08-11 07:01] LABS: Blood Urea Nitrogen 8 mg/dL (6-20); Calcium 9.6 mg/dL (8.5-10.5); Carbon Dioxide 15 mmol/L (22-29); Chloride 107 mmol/L (98-107); Glucose 134 mg/dL (65-115); Osmolality Calculated 286 mOsm/kg (285-295); Sodium 138 mmol/L (136-145)
[2021-08-11] MEDS: levothyroxine 100 mcg Tablet PO (08:54)
[2021-08-11] MEDS: amlodipine 10 mg Tablet PO (08:54)
[2021-08-11] MEDS: thiamine 100 mg Tablet PO (08:54)
[2021-08-11] MEDS: propranolol 40 mg Tablet PO (08:54)
[2021-08-11] MEDS: insulin lispro 100 unit/1 mL SUBCUT ×3 (08:54→17:36)
[2021-08-11] MEDS: folic acid 1 mg Tablet PO (08:54)
[2021-08-11] MEDS: clotrimazole 1% cream 30 gm 1 APPLIC TOPICAL (08:55)
[2021-08-11] MEDS: vancomycin 1,500 MG/300 ML PIGGYBACK 200 MG IV ×2 (09:26→20:01)
--- NOTE | 2021-08-11 13:53 | P.PN_ITS ---
Subjective Subjective: Interval history: Patient was seen this morning, no fevers, no chills, no nausea, no vomiting, Vitals/I&O/Wt Last Vital Signs Temp 97.8 F 08/11/21 11:39 Pulse 65 08/11/21 11:39 Resp 16 08/11/21 11:39 BP 114/62 08/11/21 11:39 Pulse Ox 97 08/11/21 11:39 08/10/21 08/11/21 08/11/21 22:59 06:59 14:59 Intake Total 830 / 1540 530 / 2070 710 / 710 Balance 830 / 1540 530 / 2070 710 / 710 Physical Exam Const: COMMON NORMALS: no acute distress and patient oriented x3 Resp: COMMON NORMALS: normal respiratory effort, No retractions, No use of accessory muscles and clear to auscultation bilaterally AUSCULTATION: clear to auscultation bilaterally Cardio: COMMON NORMALS: regular rate, regular rhythm, S1 normal heart sound present and S2 normal heart sound present RATE: regular rate RHYTHM: regular rhythm HEART SOUNDS: S1 normal heart sound present and S2 normal heart sound present GI: COMMON NORMALS: Normal to inspection, nondistended, normoactive bowel sounds present, Soft to palpation and non-tender PALPATION: Yes Soft to palpation Extremity: COMMON NORMALS: no pedal edema Neuro: COMMON NORMALS: patient oriented x3 Psych: COMMON NORMALS: mental status grossly normal Data : 08/11/21 05:36 08/11/21 05:36 A&P Assessment and plan (1) Hypokalemia: Status: Acute (2) Altered mental status: Status: Acute (3) Encephalopathy: Status: Acute (4) Acute cystitis: Status: Acute (5) Anemia: Status: Acute (6) Hypertension: Status: Acute Qualifiers: Hypertension type: essential hypertension Qualified Code(s): I10 - Ess ential (primary) hypertension (7) Diabetes mellitus, type II: Status: Acute Qualifiers: 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: 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 halfway insulin use status Diabetes mellitus complication status: with other specified complication Qualified Code(s): E11.69 - Type 2 diabetes mellitus with other specified complication (8) Lumbar back pain with radiculopathy affecting lower extremity: Status: Acute (9) Thrombocytopenia: Status: Acute (10) Acute hepatitis C: Status: Acute (11) Hypothyroid: Status: Acute Qualifiers: Hypothyroidism type: acquired Qualified Code(s): E03.9 - Hypothyroidism, unspecified (12) Hepatic encephalopathy: Status: Acute (13) Discitis of lumbosacral region: Status: Acute Additional A&P Information Osteomyelitis, discitis lower lumbar spine CT scan as of the abdomen pelvis shows Lumbosacral spine erosive changes with pathologic versus chronic fracture deformities of L5 and S1. Erosive arthritis, osteomyelitis, neoplastic process are considerations. MRI of the lumbar spine with contrast is recommended. ESR 82 (chronically 70-100) Is able to ambulate, no loss of sensation bilateral extremities, but does complain of shooting pain from the lower lumbar spine down the left lower extremity History of MSSA septicemia January 2021, source unclear at the time, however appear ed to be related to history of IV drug use. Endocarditis was ruled out with RENEE. Patient has also been complaining of chronic back pain since then. Small foci of air within the disc of L4-L5 and L5-S1 were noted also along the right psoas and posterior soft tissues of the lumbar spine, this was thought to be related to lumbar puncture that was attempted prior to this CAT scan. -CT scan of the lumbar spine showed 1. Destructive endplate changes at L4-L5 and L5-S1 with destructive lytic lesions in the L4, L5, and S1 bodies. This is felt to most likely represent osteomyelitis discitis, as it crosses the disc spaces. A malignant neoplastic process is considered much less likely. 2. Thickening of the ventral epidural space at L4-L5 is suspicious for an epidural abscess. 3. Mild pathologic fracture of superior L5. 4. Follow-up of these findings with MRI without and with IV gadolinium is recommended. -Blood culture showing viridans strep, repeat blood cultures pending negative so far -Continue vancomycin -Stop Zosyn, de-escalate to Cipro 500 twice daily -Zosyn for ESBL UTI, completed treatment -We will need 6 weeks of IV antibiotics, vancomycin, Vanco trough 15.9 dose appropriately by pharmacy -Given history of history of drug abuse, not a suitable candidate for home IV antibiotics, and given vancomycin dosing at twice daily, not a suitable candidate for outpatient IV antibiotics -Working on placement at facility for IV antibiotics Patient presenting overnight with chief complaints of altered mental status noted by family over the last 3 to 4 days. Currently alert to person, to place, not to time, follows commands, complaining of lower back pain Altered mental status appears to be related to encephalopathy, differentials at this time include hepatic encephalopathy given elevated ammonia at 130, possible drug overdose given initial response to Narcan, vertebral osteomyelitis CT head without acute intracranial events. U tox positive for marijuana, Ethyl alcohol level less than 10. Ammonia level 91, continue t lactulose 20 g every 6 hours, titrate to 4-5 bowel movements per day. Additionally start rifaximin monitor for improvement in mentation. Mildly elevated transaminases, T bili 1.4, CT abdomen from March 2021 without any noted cirrhosis. Hepatic steatosis was seen with normal portal vein. Mildly hydropic gallbladder with small stones noted at the time. No current signs of acute cholecystitis. Hepatitis C screening positive, will likely need outpatient follow-up. Has elevated alk phos, elevated LFTs, repeat CAT scan of the abdomen shows cho lelithiasis, Hypokalemia, resolved, resolved Hypomagnesemia, resolved, monitor UA positive for nitrate, urine cultures positive for ESBL E. 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
[2021-08-11] MEDS: ciprofloxacin 500 mg Tablet PO (20:01)
[2021-08-11 21:01] LABS: Glucose Point of Care 129 mg/dL (70-110)
[2021-08-12] VITALS (11 sets, daily range): BP systolic 110–146; BP diastolic 51–85; PULSE 63–70; RESP 16–20; TEMP 36.5–36.8; O2SAT 94–99
[2021-08-12 02:44] LABS: Adenovirus Not Detected (NOT DETECT); Chlamydia Pneumoniae Not Detected (NOT DETECT); Coronavirus 229E,HKU1,NL63,OC4 Not Detected (NOT DETECT); Human Metapneumovirus Not Detected (NOT DETECT); Human Rhinovirus/Enterovirus Not Detected (NOT DETECT); Influenza A Not Detected (NOT DETECT); Influenza A H1 Not Detected (NOT DETECT); Influenza A H1-2009 Not Detected (NOT DETECT); Influenza A H3 Not Detected (NOT DETECT); Influenza B Not Detected (NOT DETECT); Mycoplasma Pneumoniae Not Detected (NOT DETECT); Parainfluenza Virus Type 1 Not Detected (NOT DETECT); Parainfluenza Virus Type 2 Not Detected (NOT DETECT); Parainfluenza Virus Type 3 Not Detected (NOT DETECT); Parainfluenza Virus Type 4 Not Detected (NOT DETECT); Respiratory Syncytial Virus A Not Detected (NOT DETECT); Respiratory Syncytial Virus B Not Detected (NOT DETECT); SARS-COV-2 Not Detected (NOT DETECT)
[2021-08-12] MEDS: oxyCODONE 5 mg IR Tab/Cap PO ×4 (04:10→17:24)
[2021-08-12 05:05] LABS: Basophils % 0.5 %; Eosinophils # 0.2 10^3/uL (0.0-0.8); Hematocrit 33.2 % (37.0-47.0); Hemoglobin 9.7 g/dL (11.5-15.3); Lymphocytes # 2.2 10^3/uL (0.8-4.8); Lymphocytes % 50.8 %; Mean Corpuscular HGB Conc 29.2 g/dL (30.0-36.0); Mean Corpuscular Hemoglobin 21.7 pg (28.0-34.0); Mean Corpuscular Volume 74.3 fl (81-99); Mean Platelet Volume 9.6 fL (7.4-10.4); Monocytes # 0.6 10^3/uL (0.2-0.9); Monocytes % 14.3 %; Neutrophils # 1.29 10^3/uL (1.8-7.7); Neutrophils % 29.2 %; Nucleated Red Blood Cells % 0 %; Platelet Count 118 10^3/cmm (130-400); Red Blood Count 4.47 10^6/uL (4.1-5.3); Red Cell Distribution Width 19.1 % (12.1-15.1); White Blood Count 4.4 10^3/uL (4.0-10.0)
[2021-08-12 05:25] LABS: Alanine Aminotransferase 34 U/L (0-33); Albumin Level 3.6 g/dL (3.5-5.2); Alkaline Phosphatase 175 IU/L (35-105); Anion Gap 16.4 (5-19); Aspartate Amino Transferase 63 U/L (0-32); Blood Urea Nitrogen 7 mg/dL (6-20); Calcium 8.8 mg/dL (8.5-10.5); Carbon Dioxide 18 mmol/L (22-29); Chloride 105 mmol/L (98-107); Globulin 3.6 g/dL (1.3-4.6); Glucose 173 mg/dL (65-115); Magnesium 1.7 mg/dL (1.7-2.3); Osmolality Calculated 284 mOsm/kg (285-295); Potassium 3.4 mmol/L (3.5-5.1); Sodium 136 mmol/L (136-145); Total Bilirubin 0.4 mg/dL (0.15-1.2); Total Protein 7.2 g/dL (6.6-8.7)
[2021-08-12] MEDS: levothyroxine 100 mcg Tablet PO (08:14)
[2021-08-12] MEDS: thiamine 100 mg Tablet PO (08:14)
[2021-08-12] MEDS: folic acid 1 mg Tablet PO (08:14)
[2021-08-12] MEDS: vancomycin 1,500 MG/300 ML PIGGYBACK 200 MG IV ×2 (08:15→20:08)
[2021-08-12] MEDS: amlodipine 10 mg Tablet PO (08:15)
[2021-08-12] MEDS: ciprofloxacin 500 mg Tablet PO ×2 (08:20→20:09)
[2021-08-12] MEDS: insulin lispro 100 unit/1 mL SUBCUT ×4 (09:11→21:01)
[2021-08-12 12:30] LABS: Glucose Point of Care 172 mg/dL (70-110)
[2021-08-12 12:30] LABS: Glucose Point of Care 178 mg/dL (70-110)
[2021-08-12 12:30] LABS: Glucose Point of Care 175 mg/dL (70-110)
[2021-08-12 12:30] LABS: Glucose Point of Care 146 mg/dL (70-110)
[2021-08-12 12:30] LABS: Glucose Point of Care 148 mg/dL (70-110)
--- NOTE | 2021-08-12 16:55 | PM.PN ---
Subjective Subjective: Interval history: Patient was seen this morning, denies any fevers, no chills, no nausea, no vomiting Vitals/I&O/Wt Last Vital Signs Temp 97.8 F 08/12/21 16:00 Pulse 68 08/12/21 16:00 Resp 18 08/12/21 16:00 BP 113/68 08/12/21 16:00 Pulse Ox 96 08/12/21 16:00 08/12/21 08/12/21 08/12/21 06:59 14:59 22:59 Intake Total 480 / 2330 1020 / 1020 Balance 480 / 2330 1020 / 1020 Physical Exam Const: COMMON NORMALS: no acute distress and patient oriented x3 Resp: COMMON NORMALS: normal respiratory effort, No retractions, No use of accessory muscles and clear to auscultation bilaterally AUSCULTATION: clear to auscultation bilaterally Cardio: COMMON NORMALS: regular rate, regular rhythm, S1 normal heart sound present and S2 normal heart sound present RATE: regular rate RHYTHM: regular rhythm HEART SOUNDS: S1 normal heart sound present and S2 normal heart sound present GI: COMMON NORMALS: Normal to inspection, nondistended, normoactive bowel sounds present, Soft to palpation and non-tender PALPATION: Yes Soft to palpation Extremity: COMMON NORMALS: no pedal edema Neuro: COMMON NORMALS: patient oriented x3 Psych: COMMON NORMALS: mental status grossly normal Data : 08/12/21 04:45 08/12/21 04:45 A&P Assessment and plan (1) Hypokalemia: Status: Acute (2) Altered mental status: Status: Acute (3) Encephalopathy: Status: Acute (4) Acute cystitis: Status: Acute (5) Anemia: Status: Acute (6) Hypertension: Status: Acute Qualifiers: Hypertension type: essential hypertension Qualified Code(s): I10 - Essential (primary) hypertension (7) Diabetes mellitus, type II: Status: Acute Qualifiers: 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 Diabetes mellitus complication status: with other specified complication Qualified Code(s): E11.69 - Type 2 diabetes mellitus with other specified complication (8) Lumbar back pain with radiculopathy affecting lower extremity: Status: Acute (9) Thrombocytopenia: Status: Acute (10) Acute hepatitis C: Status: Acute (11) Hypothyroid: Status: Acute Qualifiers: Hypothyroidism type: acquired Qualified Code(s): E03.9 - Hypothyroidism, unspecified (12) Hepatic encephalopathy: Status: Acute (13) Discitis of lumbosacral region: Status: Acute Additional A&P Information Osteomyelitis, discitis lower lumbar spine CT scan as of the abdomen pelvis shows Lumbosacral spine erosive changes with pathologic versus chronic fracture deformities of L5 and S1. Erosive arthritis, osteomyelitis, neoplastic process are considerations. MRI of the lumbar spine with contrast is recommended. ESR 82 (chronically 70-100) Is able to ambulate, no loss of sensation bilateral extremities, but does complain of shooting pain from the lower lumbar spine down the left lower extremity History of MSSA septicemia January 2021, source unclear at the time, however appeared to be related to history of IV drug use. Endocarditis was ruled out with RENEE. Patient has also been complaining of chronic back pain since then. Small foci of air within the disc of L4-L5 and L5-S1 were noted also along the right psoas and posterior soft tissues of the lumbar spine, this was thought to be related to lumbar puncture that was attempted prior to this CAT scan. -CT scan of the lumbar spine showed 1. Destructive endplate changes at L4-L5 and L5-S1 with destructive lytic lesions in the L4, L5, and S1 bodies. This is felt to most likely represent osteomyelitis discitis, as it crosses the disc spaces. A malignant neoplastic process is considered much less likely. 2. Thickening of the ventral epidural space at L4-L5 is suspicious for an epidural abscess. 3. Mild pathologic fracture of superior L5. 4. Follow-up of these findings with MRI without and with IV gadolinium is recommended. -Blood culture showing viridans strep, repeat blood cultures pending negative so far -Continue vancomycin -On Cipro 500 twice daily -Zosyn for ESBL UTI, completed treatment -We will need 6 weeks of IV antibiotics starting July 29, vancomycin, Vanco trough 15.9 dose appropriately by pharmacy -Given history of history of drug abuse, not a suitable candidate for home IV antibiotics, and given vancomycin dosing at twice daily, not a suitable candidate for outpatient IV antibiotics -Working on placement at facility for IV antibiotics Patient presenting overnight with chief complaints of altered mental status noted by family over the last 3 to 4 days. Currently alert to person, to place, not to time, follows commands, complaining of lower back pain Altered mental status appears to be related to encephalopathy, differentials at this time include hepatic encephalopathy given elevated ammonia at 130, possible drug overdose given initial response to Narcan, vertebral osteomyelitis CT head without acute intracranial events. U tox positive for marijuana, Ethyl alcohol level less than 10. Ammonia level 91, continue t lactulose 20 g every 6 hours, titrate to 4-5 bowel movements per day. Additionally start rifaximin monitor for improvement in mentation. Mildly elevated transaminases, T bili 1.4, CT abdomen from March 2021 without any noted cirrhosis. Hepatic steatosis was seen with normal portal vein. Mildly hydropic gallbladder with small stones noted at the time. No current signs of acute cholecystitis. Hepatitis C screening positive, will likely need outpatient follow-up. Has elevated alk phos, elevated LFTs, repeat CAT scan of the abdomen shows cholelithiasis, Hypokalemia, resolved, resolved Hypomagnesemia, resolved, monitor UA positive for nitrate, urine cultures positive for ESBL E. 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 [facility] Fwd Diagnoses Hypokalemia E87.6 Altered mental status R41.82 Encephalopathy G93.40 Acute cystitis N30.00 Anemia D64.9 Hypertension I10 Hypertension type: essential hypertension Diabetes mellitus, type II E11.69 Diabetes mellitus penitentiary insulin use: unspecified penitentiary insulin use status Diabetes mellitus complication status: with other specified complication Lumbar back pain with radiculopathy affecting lower extremity M54.16 Thrombocytopenia D69.6 Acute hepatitis C B17.10 Hypothyroid E03.9 Hypothyroidism type: acquired Hepatic encephalopathy K72.90 Discitis of lumbosacral region M46.47
[2021-08-12 20:49] LABS: Glucose Point of Care 225 mg/dL (70-110)
[2021-08-13 03:28] VITALS: RESP 16
[2021-08-13] MEDS: oxyCODONE 5 mg IR Tab/Cap PO ×2 (03:28→08:02)
[2021-08-13 04:00] VITALS: BP 120/67; PULSE 70; RESP 17; TEMP 36.7; O2SAT 96
[2021-08-13 06:28] LABS: Glucose Point of Care 159 mg/dL (70-110)
[2021-08-13 06:50] LABS: Alanine Aminotransferase 38 U/L (0-33); Albumin Level 3.8 g/dL (3.5-5.2); Alkaline Phosphatase 178 IU/L (35-105); Blood Urea Nitrogen 7 mg/dL (6-20); Calcium 8.9 mg/dL (8.5-10.5); Carbon Dioxide 15 mmol/L (22-29); Chloride 103 mmol/L (98-107); Globulin 4.2 g/dL (1.3-4.6); Glomerular Filtration Rate 175.9 mL/min (90-130); Glucose 150 mg/dL (65-115); Magnesium 1.5 mg/dL (1.7-2.3); Osmolality Calculated 279 mOsm/kg (285-295); Sodium 134 mmol/L (136-145); Total Bilirubin 0.6 mg/dL (0.15-1.2)
[2021-08-13 06:56] LABS: Aspartate Amino Transferase 85 U/L (0-32)
[2021-08-13] MEDS: ciprofloxacin 500 mg Tablet PO (07:48)
[2021-08-13] MEDS: thiamine 100 mg Tablet PO (07:48)
[2021-08-13] MEDS: cloNIDine 0.1 mg Tablet PO (07:48)
[2021-08-13] MEDS: folic acid 1 mg Tablet PO (07:49)
[2021-08-13] MEDS: amlodipine 10 mg Tablet PO (07:49)
[2021-08-13] MEDS: levothyroxine 100 mcg Tablet PO (07:49)
[2021-08-13] MEDS: vancomycin 1,500 MG/300 ML PIGGYBACK 100 MG IV (07:51)
[2021-08-13 08:00] VITALS: BP 145/82; PULSE 70; RESP 18; TEMP 36.7; O2SAT 98
[2021-08-13] MEDS: insulin lispro 100 unit/1 mL SUBCUT (08:08)
--- NOTE | 2021-08-13 11:18 | PM.DCS ---
Discharge Providers Date of Admission: 07/28/21 05:20 Date of Discharge: August 13, 2021 Attending Provider at Admission: Latrice Frias MD Attending Provider at Discharge: Cesar Presley MD Primary Care Provider: FARHAT Rivera Diagnoses at Discharge Discharge Diagnosis (1) Hypokalemia: Status: Acute (2) Altered mental status: Status: Acute (3) Encephalopathy: Status: Acute (4) Acute cystitis: Status: Acute (5) Anemia: Status: Acute (6) Hypertension: Status: Acute Qualifiers: Hypertension type: essential hypertension Qualified Code(s): I10 - Essential (primary) hypertension (7) Diabetes mellitus, type II: Status: Acute Qualifiers: Diabetes mellitus complication status: with other specified complication 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 insulin use status Qualified Code(s): E11.69 - Type 2 diabetes mellitus with other specified complication (8) Lumbar back pain with radiculopathy affecting lower extremity: Status: Acute (9) Thrombocytopenia: Status: Acute (10) Acute hepatitis C: Status: Acute (11) Hypothyroid: Status: Acute Qualifiers: Hypothyroidism type: acquired Qualified Code(s): E03.9 - Hypothyroidism, unspecified (12) Hepatic encephalopathy: Status: Acute (13) Discitis of lumbosacral region: Status: Acute Reason for Visit Reason for Visit: AMS Hospital Course Hospital Course This is a 41-year-old female with past medical history type 2 diabetes mellitus, insulin-dependent, hypertension, hypothyroidism, polysubstance abuse, history of MSSA septicemia January 2021, chronic back pain, history of hepatic encephalopathy, hyperammonemia, who presents [facility] due to altered mental status Patient was admitted to [facility] for altered mental status secondary to hepatic encephalopathy, hyperammonemia, osteomyelitis and discitis and epidural abscess of the lumbar spine, ESBL UTI. -For hepatic encephalopathy, mentation improved with lactulose, rifaximin, discharged on lactulose once daily, titrate to bowel movement 2-3 times a day, rifaximin, follow-up with gastroenterology as outpatient -For ESBL UTI finished inpatient Zosyn -For her L4-L5, L5-S1 discitis, vertebral osteomyelitis, concerns for epidural abscess, orthopedic surgery was consulted, recommended medical management, received IV antibiotic therapy -Given patient's history of polysubstance abuse, discharging home with IV antibiotics through a PICC line was not a reasonable option, in addition patient lived in [place] and her vancomycin dosing was twice daily, it was not reasonable for her to come twice a day for the 6 weeks for outpatient IV antibiotics not only given antibiotic dosing but distance from infusion facility -A level 2 was required, also longterm placement was required, patient was excepted at [place] -Discharged to [place] -Vancomycin 1500 mg every 12 hours -Recheck vancomycin trough 2100 08/13/2021 -Last day of vancomycin September 10, 2021 -Ciprofloxacin 500 mg every 12 hours for 28 more days -Weekly CBCs and CMP -Monitor blood sugars 3 times daily -Follow-up with orthopedic service as outpatient, Dr. Valdez in 1 month -Follow-up with primary care provider in 1 month -Monitor blood sugars closely Physical Exam Const: COMMON NORMALS: no acute distress and patient oriented x3 Resp: COMMON NORMALS: normal respiratory effort, No retractions, No use of accessory muscles and clear to auscultation bilaterally AUSCULTATION: clear to auscultation bilaterally Cardio: COMMON NORMALS: regular rate, regular rhythm, S1 normal heart sound present and S2 normal heart sound present RATE: regular rate RHYTHM: regular rhythm HEART SOUNDS: S1 normal heart sound present and S2 normal heart sound present GI: COMMON NORMALS: Normal to inspection, nondistended, normoactive bowel sounds present, Soft to palpation and non-tender PALPATION: Yes Soft to palpation Extremity: COMMON NORMALS: no pedal edema Neuro: COMMON NORMALS: patient oriented x3 Psych: COMMON NORMALS: mental status grossly normal Discharge Data Data Completed and Pending: Completed Studies During Hospitalization Category Date Time Status CT abdomen pelvis wo con 92635 Rout ine Cat Scan 07/28/21 16:[address] head wo con* 7 0450 Urgent Cat Scan 07/27/21 19:[address] lumbar spine w o con* [id number] Stat Cat Scan 07/29/21 15:49 Completed CXRP [XR chest 1V portable [id number]] R outine Exams 07/30/21 09:54 Completed XR chest 1V hilaria ble [id number] Routine Exams 07/30/21 10:30 Completed XR chest 1V hilaria ble [id number] Urgent Exams 07/27/21 19:42 Completed MR lumbar spine w o con* [id number] Routi ne MRI 07/30/21 07:59 Completed Pending at discharge Category Date Time Status Clostridioides Di fficile PCR Routin e Lab 07/28/21 16:59 Uncollected Complete Blood Co unt w/Auto AM LABS Lab 08/14/21 04:00 Ordered Comprehensive Met abolic Panel AM LA BS Lab 08/14/21 04:00 Ordered Magnesium AM LABS Lab 08/14/21 04:00 Ordered Labs from last 24 hours 08/13/21 08/13/21 08/12/21 06:12 06:08 20:34 Sodium 134 L Potassium 4.0 Chloride 103 Carbon Dioxide 15 L Anion Gap 20.0 H BUN 7 Creatinine 0.4 L GFR Calculation 175.9 H Glucose 150 H POC Glucose 159 H 225 H Calculated Osmolal ity 279 L Calcium 8.9 Magnesium 1.5 L Total Bilirubin 0.6 AST 85 H ALT 38 H Alkaline Phosphata se 178 H Total Protein 8.0 Albumin 3.8 Globulin 4.2 08/12/21 08/12/21 08/12/21 11:22 08:03 06:29 Sodium Potassium Chloride Carbon Dioxide Anion Gap BUN Creatinine GFR Calculation Glucose POC Glucose 172 H 175 H 178 H Calculated Osmolal ity Calcium Magnesium Total Bilirubin AST ALT Alkaline Phosphata se Total Protein Albumin Globulin 08/11/21 08/11/21 16:36 12:16 Sodium Potassium Chloride Carbon Dioxide Anion Gap BUN Creatinine GFR Calculation Glucose POC Glucose 146 H 148 H Calculated Osmolal ity Calcium Magnesium Total Bilirubin AST ALT Alkaline Phosphata se Total Protein Albumin Globulin Vitals: Last Vital Signs Temp 98.1 F 08/13/21 08:00 Pulse 70 08/13/21 08:00 Resp 18 08/13/21 08:00 BP 145/82 08/13/21 08:00 Pulse Ox 98 08/13/21 08:00 Discharge Plan Discharge Patient Disposition: Xfer Intermediate Care Fac Condition: Stable Prescriptions: New insulin lispro [Humalog U-100 Insulin] 100 unit/mL Solution See Rx Instructions .ROUTE .COMPLEX Qty: 10 RF: 0 clonidine HCl 0.1 mg Tablet 0.1 mg PO BID 30 Days Qty: 60 RF: 0 vancomycin-water inject (PEG) 1.5 gram/300 mL Piggyback 1,500 mg continuous IV infusion Q12H Qty: 1800 RF: 0 ciprofloxacin HCl 500 mg Tablet 500 mg PO BID@0900,2100 29 Days Qty: 29 RF: 0 amlodipine 10 mg Tablet 10 mg PO DAILY 30 Days Qty: 30 RF: 0 Xifaxan 550 mg Tablet 550 mg PO BID 30 Days Qty: 60 RF: 0 Levemir U-100 Insulin 100 unit/mL Solution 10 unit SUBCUT Q12H Qty: 10 RF: 0 lactulose 20 gram/30 mL Solution 20 g PO Q24H Qty: 1200 RF: 0 Continued thiamine HCl (vitamin B1) 100 mg tablet 100 mg PO DAILY RF: 0 (DME) pen needle, diabetic 29 gauge x 1/2 needle See Rx Instructions ea .ROUTE .MEDSUPPLY Qty: 100 RF: 0 M-Latanya Plus 27 mg iron- 1 mg tablet 1 tab PO DAILY RF: 0 potassium chloride 10 mEq capsule, extended release 10 meq PO DAILY RF: 0 (DME) blood sugar diagnostic Strip See Rx Instructions .ROUTE .MEDSUPPLY Qty: 100 RF: 5 cyclobenzaprine 5 mg tablet 5 mg PO BID PRN (Reason: muscle spasm) 30 Days Qty: 60 RF: 0 levothyroxine 100 mcg tablet 100 mcg PO DAILY Qty: 30 RF: 0 propranolol 40 mg tablet 40 mg PO BID Qty: 30 RF: 0 gabapentin 300 mg capsule 300 mg PO DAILY 30 Days Qty: 30 RF: 0 Generlac 10 gram/15 mL solution 45 ml PO DAILY PRN (Reason: constipation) Qty: 473 RF: 0 albuterol sulfate 90 mcg/actuation Hfa Aerosol Inhaler 2 puff INHALATION QID PRN (Reason: Shortness Of Breath) RF: 0 sennosides [Senna Lax] 8.6 mg tablet 8.6 mg PO DAILY Qty: 30 RF: 0 Changed naproxen 500 mg tablet 500 mg PO BID PRN (Reason: pain) 30 Days Qty: 60 RF: 0 Discontinued insulin aspart U-100 [Novolog Flexpen U-100 Insulin] 100 unit/mL (3 mL) insulin pen See Rx Instructions .ROUTE .COMPLEX RF: 0 Lantus Solostar U-100 Insulin 100 unit/mL (3 mL) insulin pen 20 unit SUBCUT QAM RF: 0 furosemide 40 mg tablet 40 mg PO DAILY RF: 0 buprenorphine-naloxone [Suboxone] 8-2 mg film 1 film sublingual TID RF: 0 Discharge Orders: Discharge Order (Routine); Ordered 08/13/21 Ordered By: Cesar Presley Other Ambulatory Orders: Basic Metabolic Panel (Routine) Timeframe: 6 Weeks Facility: [facility] - Location: Lab - Main Lab Ordered By: Cesar Presley Complete Blood Count w/Auto (Routine) Timeframe: 6 Weeks Location: Determined by Patient Ordered By: Cesar Presley Referrals: Jhon Wong DO [Physician] - 09/10/21 10:30 am MADAN Mayfield, CREDIT UNION MANAGER [Primary Care Provider] - 1 month Discharge Diet: Diabetic Discharge Activity: Resume usual activity Activity Restrictions/Additional Instructions: activity as tolerated f/u spine clinic in 4-6 weeks unless symptoms worsen -Vancomycin 1500 mg every 12 hours -Recheck vancomycin trough 2100 08/13/2021 -Last day of vancomycin September 10, 2021 -Weekly CBCs and CMP -Monitor blood sugars 3 times daily -Follow-up with orthopedic service as outpatient, Dr. Valdez in 1 month -Follow-up with primary care provider in 1 month -Monitor blood sugars closely Discharge Attestations Time Spent in Discharge Care*: less than 30 min Status at Discharge: Cognitive status at discharge: cognitively intact, Behavioral status at discharge: cooperative, Quality Metrics Clinical Quality Measures During this hospital stay, did patient experience: None Coding Level of Care Code Acute Chg FW DC note Exam Detailed Diagnoses Hypokalemia E87.6 Altered mental status R41.82 Encephalopathy G93.40 Acute cystitis N30.00 Anemia D64.9 Hypertension I10 Hypertension type: essential hypertension Diabetes mellitus, type II E11.69 Diabetes mellitus complication status: with other specified complication Diabetes mellitus long-term insulin use: 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
[2021-08-13] MEDS: magnesium sulfate premix 4 GM/100 ML PREMIX IV (11:32)
[2021-08-13 12:00] VITALS: BP 108/66; PULSE 71; RESP 18; TEMP 36.4; O2SAT 98
[2021-08-13 17:09] LABS: Glucose Point of Care 175 mg/dL (70-110)
[2021-08-14 01:18] LABS: Glucose Point of Care 161 mg/dL (70-110)
== END 2021-08-13 14:30 | disposition left against medical advice (07) | DRG 441 ==
LOC: ER 23:26 → ER IP 07-28 05:00 → MEDSURG 07-28 17:01
PROVIDERS: Family Medicine; Internal Medicine; Admitting Provider Student in an Organized Health Care Education/Training Program; Emergency Provider Emergency Medicine; PCP Nurse Practitioner Family; Visit Provider Family Medicine
DX: K72.90 Hepatic failure, unspecified without coma (principal); G06.2 Extradural and subdural abscess, unspecified; M46.27 Osteomyelitis of vertebra, lumbosacral region; B17.10 Acute hepatitis C without hepatic coma; N30.00 Acute cystitis without hematuria; E72.20 Disorder of urea cycle metabolism, unspecified; Z16.12 Extended spectrum beta lactamase (ESBL) resistance; F19.10 Other psychoactive substance abuse, uncomplicated; E87.6 Hypokalemia; I10 Essential (primary) hypertension; E11.69 Type 2 diabetes mellitus with other specified complication; M46.47 Discitis, unspecified, lumbosacral region; M48.061 Spinal stenosis, lumbar region without neurogenic claudication; G89.29 Other chronic pain; D69.59 Other secondary thrombocytopenia; D63.8 Anemia in other chronic diseases classified elsewhere; E03.9 Hypothyroidism, unspecified; B96.29 Other Escherichia coli [E. coli] as the cause of diseases classified elsewhere; E83.42 Hypomagnesemia; R74.8 Abnormal levels of other serum enzymes; K76.0 Fatty (change of) liver, not elsewhere classified; F41.8 Other specified anxiety disorders; F31.9 Bipolar disorder, unspecified; G47.33 Obstructive sleep apnea (adult) (pediatric); K80.20 Calculus of gallbladder without cholecystitis without obstruction; Z53.29 Procedure and treatment not carried out because of patient's decision for other reasons; Z79.4 Long term (current) use of insulin; Z86.19 Personal history of other infectious and parasitic diseases; Z91.19 Patient's noncompliance with other medical treatment and regimen
CPT/HCPCS: 36415; 36416; 36569; 36592; 36600; 70450; 71045; 72131; 72148; 74176; 80048; 80051; 80053; 80202; 80306; 80307; 81001; 82140; 82330; 82550; 82805; 82962; 82977; 83036; 83690; 83735; 83880; 84100; 84145; 84439; 84443; 84481; 84484; 85025; 85651; 86140; 87040; 87077; 87086; 87186; 87205; 87635; 93005; 96365; 96366; 96367; 96372; 96375; 99291; C1751; J0696; J1170; J1815; J2060; J2543; J3370; J3475; J3480; J3490; J7040

== ENCOUNTER → 2021-09-15 14:24 | Outpatient (BNVA) | payer MEDICAID, SELFPAY | PROVIDERS: PCP Nurse Practitioner Family; Visit Provider Orthopaedic Surgery | DX: M54.16 Radiculopathy, lumbar region (principal) | CPT/HCPCS: 72110 ==

== ENCOUNTER 2021-10-16 02:00 | Inpatient (IN) | payer MEDICAID, SELFPAY ==
[2021-10-16] VITALS (37 sets, daily range): BP systolic 109–164; BP diastolic 54–115; PULSE 86–101; RESP 16–47; TEMP 36.3–37; O2SAT 87–96; BMI 34.0
--- NOTE | 2021-10-16 02:13 | CTR_ITS ---
PROCEDURE INFORMATION: Exam: CTA Chest With Contrast Exam date and time: 10/16/2021 3:11 AM Age: 41 years old Clinical indication: Injury or trauma; Fall; Generalized; Dyspnea and shortness of breath; Blunt trauma (contusions or hematomas); Prior surgery; Surgery type: Csection; Patient HX: Patient states fell onto RT side three days ago. C/O RT rib/chest/back pain. Patient on 15l non rebreather. Lactic of 7.2. ; Additional info: SOB, hypoxia TECHNIQUE: Imaging protocol: Computed tomographic angiography of the chest with contrast. 3D rendering (Not supervised by radiologist): MIP and/or 3D reconstructed images were created by the technologist. Radiation optimization: All CT scans at this facility use at least one of these dose optimization techniques: automated exposure control; mA and/or kV adjustment per patient size (includes targeted exams where dose is matched to clinical indication); or iterative reconstruction. Contrast material: OMNI 350; Contrast volume: 95 ml; Contrast route: INTRAVENOUS (IV); COMPARISON: CT angio chest PE protcl [id number] 02/24/2021 10:12 AM RADIATION DOSE METRICS: Total DLP (mGy-cm): 1892.47 FINDINGS: Pulmonary arteries: Normal. No pulmonary emboli. Aorta: Unremarkable. No aortic aneurysm. No aortic dissection. Lungs: There is consolidation seen within the right middle lobe and right lower lobe and within the lingula, findings that may represent atelectasis although a bilateral basilar pneumonia cannot be excluded. Additionally, there are patchy ground-glass opacity seen in the upper hemithoraces with a patchy bilateral pneumonia. Pleural spaces: Unremarkable. No pneumothorax. No pleural effusion. Heart: Unremarkable. No cardiomegaly. No pericardial effusion. Lymph nodes: Unremarkable. No enlarged lymph nodes. Bones/joints: Unremarkable. No acute fracture. Soft tissues: Unremarkable. PROCEDURE INFORMATION: Exam: CT Abdomen And Pelvis With Contrast Exam date and time: 10/16/2021 3:11 AM Age: 41 years old Clinical indication: Injury or trauma; Fall; Generalized; Dyspnea and shortness of breath; Blunt trauma (contusions or hematomas); Prior surgery; Surgery type: Csection; Patient HX: Patient states fell onto RT side three days ago. C/O RT rib/chest/back pain. Patient on 15l non rebreather. Lactic of 7.2. ; Additional info: SOB, hypoxia TECHNIQUE: Imaging protocol: Computed tomography of the abdomen and pelvis with contrast. Radiation optimization: All CT scans at this facility use at least one of these dose optimization techniques: automated exposure control; mA and/or kV adjustment per patient size (includes targeted exams where dose is matched to clinical indication); or iterative reconstruction. Contrast material: OMNI 350; Contrast volume: 95 ml; Contrast route: INTRAVENOUS (IV); COMPARISON: CT angio chest PE protcl [id number] 02/24/2021 10:12 AM RADIATION DOSE METRICS: Total DLP (mGy-cm): 1892.47 FINDINGS: Liver: Normal. No mass. Gallbladder and bile ducts: There is intermediate attenuation material seen within the gallbladder neck likely representing gallbladder sludge. Pancreas: Normal. No ductal dilation. Spleen: Punctate calcifications seen within the spleen compatible with a calcified granuloma. The spleen is mildly prominent measuring 15.7 cm craniocaudal dimension. Adrenal glands: Normal. No mass. Kidneys and ureters: There is a 7.7 mm hypoattenuation cystic lesions seen within the posterior aspect of the right kidney compatible with a simple cyst. 3.6 mm nonobstructing calculus seen in the lower pole of the left kidney. Stomach and bowel: Unremarkable. No obstruction. No mucosal thickening. Appendix: The appendix is visualized and is normal in configuration. Intraperitoneal space: Unremarkable. No free air. No significant fluid collection. Vasculature: Unremarkable. No abdominal aortic aneurysm. Lymph nodes: There is a mildly prominent mesenteric lymph nodes seen within the right flank that measures 15 mm transverse dimension. Urinary bladder: Unremarkable as visualized. Reproductive: Unremarkable as visualized. Bones/joints: Unremarkable. No acute fracture. Soft tissues: Unremarkable. CT/CT angio chest w abd pel w con IMPRESSION: 1. There is no evidence for pulmonary emboli. 2. There are patchy bilateral irregular ground-glass opacity seen in the upper hemithoraces with consolidation seen in the right lower lobe and right middle lobe as well as within the lingula, findings compatible with a bilateral pneumonia. IMPRESSION: 1. Intermediate attenuation material in the gallbladder neck likely represents gallbladder sludge. 2. Mild splenomegaly 3. Mildly prominent mesenteric lymph nodes seen in the right flank measuring up to 15 mm transverse dimension. 4. Nonobstructing 3.6 mm calculus in the lower pole of the left kidney 5. Benign 7.7 mm cyst in the posterior aspect of the right kidney. No further workup needed. COMMENTS: Consistent with the [employer]'s Incidental Findings Committee white paper (J Am Shante Radiol 2018): Any incidental renal lesion less than 1 cm or classified as too small to characterize, or any incidental cystic renal lesion characterized as simple-appearing, is likely benign. No follow-up imaging is recommended for these lesions per consensus recommendations based on imaging criteria.
--- NOTE | 2021-10-16 02:13 | XRR_ITS ---
PROCEDURE INFORMATION: Exam: XR Chest Exam date and time: 10/16/2021 1:25 AM Age: 41 years old Clinical indication: Injury or trauma; Fall; Dyspnea and shortness of breath; Blunt trauma (contusions or hematomas); Patient HX: Patient states she fell three days ago onto RT side. C/O rib/chest/back pain and now having hemoptysis. Hypoxic on monitor. ; Additional info: SOB TECHNIQUE: Imaging protocol: XR of the chest. Views: 1 view. COMPARISON: CR XR chest 1V portable [id number] 07/30/2021 10:23 AM FINDINGS: Lungs: There are hazy and patchy opacities present in the lower hemithoraces bilaterally, findings that may represent atelectasis although a patchy bilateral basilar pneumonia cannot be excluded. Pleural spaces: Unremarkable. No pleural effusion. No pneumothorax. Heart/Mediastinum: Unremarkable. No cardiomegaly. Bones/joints: Unremarkable. XR/XR chest 1V portable [id number] IMPRESSION: Patchy and hazy opacities in the lung bases bilaterally may represent atelectasis although a bilateral basilar pneumonia cannot be excluded.
--- NOTE | 2021-10-16 02:16 | ECG_ITS ---
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 Measurements Intervals [place] Rate: 97 P: 45 MA: 152 QRS: 29 QRSD: 86 T: 68 QT: 350 QTc: 447 Interpretive Statements SINUS RHYTHM Compared to ECG 07/28/2021 10:28:48 ST (T wave) deviation no longer present Electronically Signed On 10-16-2021 20:09:01 CDT by Raz Kenney M.D. [id number]
--- NOTE | 2021-10-16 02:20 | ED_ITS ---
HPI - General Adult General: Chief complaint: General Medical Stated complaint: coughing Time Seen by Provider: 10/16/21 02:04 [facility] ED PFSH: Medical History Abdominal pain Adjustment reaction with anxiety and depression Alcohol use disorder Anemia Anxiety with depression Bipolar disorder Borderline personality disorder Cholelithiasis Congestive heart failure Cystitis Diabetes mellitus, type II Drug-induced psychotic disorder FH: breast cancer in first degree relative H/O chronic hepatitis Hepatic encephalopathy Hypertension Hypertension screen Hypothyroid Meningitis Metabolic encephalopathy Methamphetamine abuse Muscle spasm Obstructive sleep apnea Opiate dependence 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 Pneumonia Polysubstance abuse Polysubstance abuse Respiratory failure with hypoxia Sepsis Staphylococcus aureus bacteremia Vitamin D deficiency Yeast dermatitis Surgical History History of Social History Smoking and tobacco status: never smoked Second hand smoke exposure: No Smoking risk assessment/counseling performed?: No Alcohol intake: never Desire information about alcohol rehabilitation?: No Counseling given: No Desire information about substance/drug rehabilitation?: No Counseling given: No Female Reproductive History: Date of last menstrual period: 10/23/20 Course Vital Signs: Vital signs: Vital Signs Temperature 97.3 F L 10/16/21 02:04 Pulse Rate 101 H 10/16/21 02:04 Respiratory Rate 36 H 10/16/21 02:04 Blood Pressure 133/92 10/16/21 02:04 Pulse Oximetry 87 L 10/16/21 02:04 Discharge Plan Discharge Condition: Stable Prescriptions: No Action thiamine HCl (vitamin B1) 100 mg tablet 100 mg PO DAILY 0RF PNV,calcium [id number] acid 27 mg iron- 1 mg tablet 1 tab PO DAILY 0RF potassium chloride 10 mEq capsule, extended release 10 meq PO DAILY 0RF (DME) blood sugar diagnostic Strip See Rx Instructions .ROUTE .MEDSUPPLY Qty: 100 5RF Rx Instructions: use to check blood sugar 3-4 times per day levothyroxine 100 mcg tablet 100 mcg PO DAILY Qty: 30 0RF propranolol 40 mg tablet 40 mg PO BID Qty: 30 0RF gabapentin 300 mg capsule 300 mg PO DAILY 30 Days Qty: 30 0RF Rx Instructions: Do not drive or operate heavy machinery while taking the medication Generlac 10 gram/15 mL solution 45 ml PO DAILY PRN (Reason: constipation) Qty: 473 0RF pen needle, diabetic [Comfort EZ Pen [place]] 29 gauge x 1/2 needle See Rx Instructions .ROUTE .COMPLEX Qty: 100 1RF Dose Instruction: USE THREE TIMES DAILY Rx Instructions: USE THREE TIMES DAILY cyclobenzaprine 5 mg tablet 5 mg PO BID PRN (Reason: muscle spasm) 30 Days Qty: 60 0RF Rx Instructions: Do not operate heavy machinery or drive while taking the medication oxycodone 5 mg tablet 5 mg PO Q4H PRN (Reason: pain) 7 Days Qty: 40 0RF albuterol sulfate 90 mcg/actuation Hfa Aerosol Inhaler 2 puff INHALATION QID PRN (Reason: Shortness Of Breath) 0RF Humalog U-100 Insulin 100 unit/mL Solution See Rx Instructions .ROUTE .COMPLEX Qty: 10 0RF Rx Instructions: insulin sliding scale, inject subcut, tid and bedtime, before meals, based on sliding scale Levemir U-100 Insulin 100 unit/mL Solution 10 unit SUBCUT Q12H Qty: 10 0RF lactulose 20 gram/30 mL Solution 20 g PO Q24H Qty: 1200 0RF vancomycin-water inject (PEG) 1.5 gram/300 mL Piggyback 1,500 mg continuous IV infusion Q12H Qty: 1800 0RF Rx Instructions: END DATE sep 10 naproxen 500 mg tablet 500 mg PO BID PRN (Reason: pain) 30 Days Qty: 60 0RF lactulose 20 gram/30 mL solution 20 g PO BID Qty: 1200 0RF Rx Instructions: titrate to 3-4 BM a day sennosides [Senna Lax] 8.6 mg tablet 8.6 mg PO DAILY Qty: 30 0RF Referrals: Chaparro,MADAN, MATERIAL DISTRIBUTOR [Primary Care Provider] - Coding Level of Care Code ED Client Service Representative for Lorri Chandler
--- NOTE | 2021-10-16 02:24 | W.ED.SOB ---
Documented by User: JESSICA Barron 10/16/21 02:45 HPI - SOB/Dyspnea General: Chief Complaint: General Medical Stated Complaint: coughing Time Seen by Provider: 10/16/21 02:04 Source: patient and EMS Mode of arrival: EMS Limitations: no limitations History of Present Illness: HPI Narrative: Patient is a 41-year-old female who presents to ED today via EMS for complaints of shortness of breath and difficulty breathing. Patient upon arrival is a fairly poor historian. She tells me she recently was discharged from [facility] after she was admitted for a spinal infection . Looks like she had follow-up with Dr. Wong here on 09/15 following this discharge. According to his note she was admitted for discitis of her lumbar region. She states over the past several days she has developed shortness of breath and difficulty breathing. She is also having some episodes of hemoptysis. When asked about pain she tells me that she hurts everywhere. Patient has no history of asthma, COPD, emphysema. She is an every day smoker. She has no previous cardiac history. She reports shortness of breath seems to be worse with lying flat and feels that she gets crackly when she lies down. She has not noticed any swelling to her lower extremities. MD elicited complaint: shortness of breath and cough Onset (ago): day(s) Timing: constant Severity: severe Exacerbating factors: lying flat Relieving factors: nothing Associated symptoms: Reports hemoptysis and orthopnea; Deny abdominal pain, chest pain, extremity pain, fever(s), lightheadedness, nausea, palpitations, syncope or vomiting Treatment prior to arrival: oxygen Related Data: Home oxygen amount: none Review of Systems Const: Reports: body aches (reports she hurts all over); Denies: fever(s) or chills Card: Reports: dyspnea on exertion and orthopnea; Denies: chest pain, palpitations, irregular heart rhythm, edema, swelling of feet/ankles, lightheadedness, syncope or pre-syncope Resp: Reports: dyspnea, non-productive cough, change in phlegm color and hemoptysis; Denies: wheezing GI: Denies: abdominal pain, nausea, vomiting or diarrhea : Denies: flank pain, dysuria or hematuria Musc: Reports: back pain (states she has continued to have this since her hospital discharge ); Denies: neck pain, extremity pain, extremity swelling or joint pain Skin/Breast: Denies: rash Neuro: Denies: headache(s) PFSH ED PFSH: Medical History Abdominal pain Adjustment reaction with anxiety and depression Alcohol use disorder Anemia Anxiety with depression Bipolar disorder Borderline personality disorder Cholelithiasis Congestive heart failure Cystitis Diabetes mellitus, type II Drug-induced psychotic disorder FH: breast cancer in first degree relative H/O chronic hepatitis Hepatic encephalopathy Hypertension Hypertension screen Hypothyroid Meningitis Metabolic encephalopathy Methamphetamine abuse Muscle spasm Obstructive sleep apnea Opiate dependence 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 Pneumonia Polysubstance abuse Polysubstance abuse Respiratory failure with hypoxia Sepsis Staphylococcus aureus bacteremia Vitamin D deficiency Yeast dermatitis Surgical History History of Social History Smoking and tobacco status: current every day smoker Second hand smoke exposure: No Smoking risk assessment/counseling performed?: No Alcohol intake: never Desire information about alcohol rehabilitation?: No Counseling given: No Substance/Drug Use: former Desire information about substance/drug rehabilitation?: No Counseling given: No Female Reproductive History: Date of last menstrual period: 10/23/20 Physical Exam Const: COMMON NORMALS: patient oriented x3, no limitations and alert GENERAL APPEARANCE: cooperative and in distress (respiratory distress with acute hypoxia ) NUTRITIONAL APPEARANCE: obese ORIENTATION/CONSCIOUSNESS: Yes awake, Yes oriented to person, Yes oriented to place and Yes oriented to time HENMT: COMMON NORMALS: normocephalic and atraumatic HEAD & SCALP: normocephalic and atraumatic Neck/C-Spine: COMMON NORMALS: full ROM GENERAL: Yes normal visual inspection Chest: COMMONS NORMALS: normal inspection of the chest and normal palpation of entire chest wall Resp: EFFORT & INSPECTION: Yes tachypneic and Yes labored AUSCULTATION: other (surprisingly patient is moving good air w/o wheezes or rhonchi) Cardio: COMMON NORMALS: regular rhythm RATE: tachycardic RHYTHM: regular rhythm Back/Pelvis: THORACIC SPINE/UPPER BACK: Yes normal to inspection and No thoracic spinal tenderness LUMBAR SPINE/LOWER BACK: Yes lumbar spinal tenderness PELVIS: Yes buttocks normal SACROILIAC JOINTS: Yes SI joints normal Extremity: COMMON NORMALS: normal to inspection, capillary refill normal, no joint enlargement, no clubbing, cyanosis or edema, no calf tenderness and no pedal edema GENERAL: Yes normal exam except as noted Neuro: YVETTE COMA SCALE: document GCS findings Martin coma scale eye opening: Spontaneous Yvette coma scale verbal response: Orientated Yvette coma scale motor response: Obey commands Martin coma scale total score: 15 COMMON NORMALS: patient oriented x3, moves all extremities, no focal motor deficits and no sensory deficits noted SENSORIUM/ORIENTATION: Yes alert, Yes oriented to person, Yes oriented to place and Yes oriented to time Skin: RASHES: no rashes Course Vital Signs: Vital signs: Vital Signs Temperature 97.3 F L 10/16/21 02:04 Pulse Rate 97 10/16/21 07:51 Respiratory Rate 22 H 10/16/21 07:51 Blood Pressure 124/85 10/16/21 05:37 Pulse Oximetry 93 10/16/21 07:51 MDM - SOB/Dyspnea Medical Decision Making Patient signed out to Dr. Turner given her acuity. Lab Data : 10/16/21 02:24 10/16/21 02:24 Labs/Radiology: Radiology Impressions Chest X-Ray 10/16/21 02:13 IMPRESSION: Patchy and hazy opacities in the lung bases bilaterally may represent atelectasis although a bilateral basilar pneumonia cannot be excluded. Chest/Abdomen/Pelvis CT 10/16/21 02:13 IMPRESSION: 1. There is no evidence for pulmonary emboli. 2. There are patchy bilateral irregular ground-glass opacity seen in the upper hemithoraces with consolidation seen in the right lower lobe and right middle lobe as well as within the lingula, findings compatible with a bilateral pneumonia. IMPRESSION: 1. Intermediate attenuation material in the gallbladder neck likely represents gallbladder sludge. 2. Mild splenomegaly 3. Mildly prominent mesenteric lymph nodes seen in the right flank measuring up to 15 mm transverse dimension. 4. Nonobstructing 3.6 mm calculus in the lower pole of the left kidney 5. Benign 7.7 mm cyst in the posterior aspect of the right kidney. No further workup needed. COMMENTS: Consistent with the [employer]'s Incidental Findings Committee white paper (J Am Shante Radiol 2018): Any incidental renal lesion less than 1 cm or classified as too small to characterize, or any incidental cystic renal lesion characterized as simple-appearing, is likely benign. No follow-up imaging is recommended for these lesions per consensus recommendations based on imaging criteria. Laboratory Results WBC 3.5 10^3/uL (4.0-10.0) L 10/16/21 02:24 RBC 4.14 10^6/uL (4.1-5.3) 10/16/21 02:24 Hgb 9.0 g/dL (11.5-15.3) L 10/16/21 02:24 Hct 31.4 % (37.0-47.0) L 10/16/21 02:24 MCV 75.8 fl (81-99) L 10/16/21 02:24 MCH 21.7 pg (28.0-34.0) L 10/16/21 02:24 MCHC 28.7 g/dL (30.0-36.0) L 10/16/21 02:24 RDW 25.3 % (12.1-15.1) H 10/16/21 02:24 Plt Count 91 10^3/cmm (130-400) L 10/16/21 02:24 MPV Not Reportable 10/16/21 02:24 Lymph % (Auto) Not Reportable 10/16/21 02:24 [place] % (Auto) Not Reportable 10/16/21 02:24 Lymph # (Auto) Not Reportable 10/16/21 02:24 [place] # (Auto) Not Reportable 10/16/21 02:24 Total Counted 100 (0-100) 10/16/21 02:24 Atypical Lymphs % 3.0 % (0-5) 10/16/21 02:24 Absolute Neutrophils 1.7 10^3/cmm (1.4-6.5) 10/16/21 02:24 Segmented Neutrophils 34 % 10/16/21 02:24 Abs Segm Neuts (Man) 1.2 10/cmm (1.6-7.1) L 10/16/21 02:24 Band Neutrophils 14.0 % 10/16/21 02:24 Abs Band Neuts (Man) 0.5 10^3/cmm (0.0-1.2) 10/16/21 02:24 Absolute Lymphocytes 1.4 10^3/cmm (1.2-3.4) 10/16/21 02:24 Lymphocytes (Manual) 36 % 10/16/21 02:24 Monocytes (Manual) 4.0 % 10/16/21 02:24 Absolute Monocytes 0.1 10^3/cmm (0.1-0.6) 10/16/21 02:24 Eosinophils (Manual) 5 % 10/16/21 02:24 Absolute Eosinophils 0.1 10^3/cmm (0.0-0.7) 10/16/21 02:24 Basophils (Manual) 0.0 % 10/16/21 02:24 Absolute Basophils 0.0 10^3/cmm (0.0-0.2) 10/16/21 02:24 Metamyelocytes 4.0 % 10/16/21 02:24 Nucleated RBCs 2.0 /100WBC (0-1) H 10/16/21 02:24 Smudge Cells Trace 10/16/21 02:24 Platelet Estimate Decreased (Normal) L 10/16/21 02:24 Polychromasia 1+ H 10/16/21 02:24 Poikilocytosis 2+ H 10/16/21 02:24 Anisocytosis 3+ H 10/16/21 02:24 Ovalocytes 1+ H 10/16/21 02:24 Bren Cells 2+ H 10/16/21 02:24 Acanthocytes (Spur) 1+ H 10/16/21 02:24 Sodium 130 mmol/L (136-145) L 10/16/21 02:24 Potassium 4.5 mmol/L (3.5-5.1) 10/16/21 02:24 Chloride 96 mmol/L (98-107) L 10/16/21 02:24 Carbon Dioxide 12 mmol/L (22-29) L 10/16/21 02:24 Anion Gap 26.5 (5-19) H 10/16/21 02:24 BUN 22 mg/dL (6-20) H 10/16/21 02:24 Creatinine 0.9 mg/dL (0.5-0.9) 10/16/21 02:24 GFR Calculation 69.0 mL/min (90-130) L 10/16/21 02:24 Glucose 74 mg/dL (65-115) 10/16/21 02:24 Calculated Osmolality 272 mOsm/kg (285-295) L 10/16/21 02:24 Lactic Acid 7.2 mmol/L (0.5-2.2) H* 10/16/21 02:24 Calcium 9.1 mg/dL (8.5-10.5) 10/16/21 02:24 Total Bilirubin 3.0 mg/dL (0.15-1.2) H 10/16/21 02:24 AST 47 U/L (0-32) H 10/16/21 02:24 ALT 17 U/L (0-33) 10/16/21 02:24 Alkaline Phosphatase 126 IU/L (35-105) H 10/16/21 02:24 Troponin T Baseline 9 ng/L (0-10) 10/16/21 02:24 Troponin T 120 Minute 8.58 ng/L (0-10) 10/16/21 04:18 Delta Troponin T -0.42 ABS# (0-10) L 10/16/21 04:18 NT-Pro-B Natriuret Pep 814 pg/mL (0-125) H 10/16/21 02:24 Total Protein 7.9 g/dL (6.6-8.7) 10/16/21 02:24 Albumin 3.5 g/dL (3.5-5.2) 10/16/21 02:24 Globulin 4.4 g/dL (1.3-4.6) 10/16/21 02:24 Procalcitonin 9.76 ng/mL (0-0.5) H 10/16/21 02:24 HCG, Qual Negative (Negative) 10/16/21 02:24 Urine Color Yellow (Yellow) 10/16/21 04:32 Urine Appearance Clear (CLEAR) 10/16/21 04:32 Urine pH 7 (5-7) 10/16/21 04:32 Ur Specific [place] 1.000 (1.005-1.030) L 10/16/21 04:32 Urine Protein Neg (Negative) 10/16/21 04:32 Urine Glucose (UA) Norm (Normal) 10/16/21 04:32 Urine Ketones Negative (Negative) 10/16/21 04:32 Urine Blood Neg (Negative) 10/16/21 04:32 Urine Nitrate Negative (Negative) 10/16/21 04:32 Urine Bilirubin Neg (Negative) 10/16/21 04:32 Urine Urobilinogen 1 mg/dL (Negative) H 10/16/21 04:32 Ur Leukocyte Esterase Negative (Negative) 10/16/21 04:32 Coronavirus 229E (PCR) Not detected (NOT DETECT) 10/16/21 05:30 SARS-CoV-2 (PCR) Not detected (NOT DETECT) 10/16/21 05:30 SARS-CoV-2 Ag (Rapid) Negative (Negative) 10/16/21 02:24 Discharge Plan Discharge Patient Disposition: Admitted As Inpatient Admit Provider: Miguel Ágnel Stephens Clinical Impression: Pneumonia, Sepsis, Acute respiratory failure with hypoxia, Pancytopenia Condition: Stable Sign Out Sign Out Data: Patient Sign Out occurred on 10/16/21 at 02:47. Patient's care was discussed, and care was transferred from to Lobito Turner MD. Post-Handoff Eval: See MDM Coding Level of Care Code ED Retail Representative for Chg Fwd Exam Comprehensive Documented by User: Lobito Turner MD 10/16/21 08:24 HPI - SOB/Dyspnea General: Chief Complaint: General Medical Stated Complaint: coughing Time Seen by Provider: 10/16/21 02:04 [facility] ED PFSH: Medical History Abdominal pain Adjustment reaction with anxiety and depression Alcohol use disorder Anemia Anxiety with depression Bipolar disorder Borderline personality disorder Cholelithiasis Congestive heart failure Cystitis Diabetes mellitus, type II Drug-induced psychotic disorder FH: breast cancer in first degree relative H/O chronic hepatitis Hepatic encephalopathy Hypertension Hypertension screen Hypothyroid Meningitis Metabolic encephalopathy Methamphetamine abuse Muscle spasm Obstructive sleep apnea Opiate dependence 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 Pneumonia Polysubstance abuse Polysubstance abuse Respiratory failure with hypoxia Sepsis Staphylococcus aureus bacteremia Vitamin D deficiency Yeast dermatitis Surgical History History of Social History Smoking and tobacco status: current every day smoker Second hand smoke exposure: No Smoking risk assessment/counseling performed?: No Alcohol intake: never Desire information about alcohol rehabilitation?: No Counseling given: No Substance/Drug Use: former Desire information about substance/drug rehabilitation?: No Counseling given: No Physical Exam Neuro: YVETTE COMA SCALE: document GCS findings Martin coma scale total score: 15 Course Vital Signs: Vital signs: Vital Signs Temperature 97.3 F L 10/16/21 02:04 Pulse Rate 97 10/16/21 07:51 Respiratory Rate 22 H 10/16/21 07:51 Blood Pressure 124/85 10/16/21 05:37 Pulse Oximetry 93 10/16/21 07:51 MDM - SOB/Dyspnea Medical Decision Making Patient signed out to Dr. Turner given her acuity. Patient care handed off from JESSICA Barron. We discussed the patient's case. I have reviewed documentation and agree as documented except as noted. I personally performed nina portions of E/M. Supplemental information provided on patient is that she had the prolonged hospitalization as noted here for discitis/epidural abscess and was supposed to be discharged to a rehab or other facility for IV antibiotics which is what she objected to. She subsequently was discharged on oral antibiotics. She did have follow-up in September with spine surgery. Subsequently she had increased back pain or some other symptoms so she presented to [facility] earlier this month in [place]. Per review of records she had abnormal MRI concerning for acute infection and was evaluated by neurosurgery and infectious disease. Per copy of notes infectious disease notes that bone biopsy cultures were negative and discontinued antibiotics with plan to follow-up with outpatient infectious disease here. She did fall 2 days ago and since that time had respiratory symptoms including shortness of breath, coughing, and hemoptysis. She landed on her right side. Intensity of symptoms is severe. Course has been worsening. A 10 point review of systems was completed by me and negative except for as noted by Chelsy Holbrook GENERAL/CONSTITUTIONAL - ill-appearing. Respiratory distress. Eyes - PERRL, no conjunctival injection ENMT - Atraumatic external nose and ears. Dry mucous membranes NECK - supple. trachea midline CARDIOVASCULAR -tachycardic rate and regular rhythm. RESPIRATORY - diminished right base. Tachypnea. Increased work of breathing. Patient experiences severe respiratory distress without supplemental oxygen in place. ABDOMEN/GI - Nontender, Nondistended. No evidence of peritonitis MSK - Extremities without obvious deformity or tenderness to palpation SKIN - Warm, Dry NEURO - alert and appropriately oriented.Moves all extremities equally. PSYCH -anxious - Patient was seen and evaluated by me at bedside after discussion with Chelsy Holbrook - Patient previously placed on cardiac monitors, IV access obtained - Initial evaluation notable for ill appearance, respiratory distress - RT treatment ordered. Patient declined ABG. 1 L IV fluids ordered. - Labs notable for pancytopenia. Metabolic panel with acute derangements consistent with lactic acidosis, glucose is elevated however urine ketones negative. There is elevation in T bili. Urinalysis not concerning for urinary tract infection. hCG negative. - Imaging notable for ALTE focal pneumonia. Additional findings in abdomen include likely gallbladder sludge, mild splenomegaly, mesenteric lymph nodes enlarged, as well as other incidental findings - Additional 1 L of IV fluids meeting 30 cc/kg ideal body weight criteria ordered. IV antibiotics ordered. - Upon serial reexamination after treatment the patient was improved. She did require anxiolysis for toleration of supplemental oxygen - Based on patient history, evaluation, labs, and imaging as interpreted the most likely cause of the patient's condition is sepsis secondary to pneumonia with multiple comorbidities and findings. - The results of ED evaluation were discussed with the patient including plan for admission due to requirement for level of care not available if discharged to prevent significant worsening/deterioration. - Hospitalist service contacted and agreed admit patient - Patient was admitted to ICU in critical condition Lobito Turner MD Emergency Medicine Lab Data : 10/16/21 02:24 10/16/21 02:24 Labs/Radiology: Radiology Impressions Chest X-Ray 10/16/21 02:13 IMPRESSION: Patchy and hazy opacities in the lung bases bilaterally may represent atelectasis although a bilateral basilar pneumonia cannot be excluded. Chest/Abdomen/Pelvis CT 10/16/21 02:13 IMPRESSION: 1. There is no evidence for pulmonary emboli. 2. There are patchy bilateral irregular ground-glass opacity seen in the upper hemithoraces with consolidation seen in the right lower lobe and right middle lobe as well as within the lingula, findings compatible with a bilateral pneumonia. IMPRESSION: 1. Intermediate attenuation material in the gallbladder neck likely represents gallbladder sludge. 2. Mild splenomegaly 3. Mildly prominent mesenteric lymph nodes seen in the right flank measuring up to 15 mm transverse dimension. 4. Nonobstructing 3.6 mm calculus in the lower pole of the left kidney 5. Benign 7.7 mm cyst in the posterior aspect of the right kidney. No further workup needed. COMMENTS: Consistent with the [employer]'s Incidental Findings Committee white paper (J Am Shante Radiol 2018): Any incidental renal lesion less than 1 cm or classified as too small to characterize, or any incidental cystic renal lesion characterized as simple-appearing, is likely benign. No follow-up imaging is recommended for these lesions per consensus recommendations based on imaging criteria. Laboratory Results WBC 3.5 10^3/uL (4.0-10.0) L 10/16/21 02:24 RBC 4.14 10^6/uL (4.1-5.3) 10/16/21 02:24 Hgb 9.0 g/dL (11.5-15.3) L 10/16/21 02:24 Hct 31.4 % (37.0-47.0) L 10/16/21 02:24 MCV 75.8 fl (81-99) L 10/16/21 02:24 MCH 21.7 pg (28.0-34.0) L 10/16/21 02:24 MCHC 28.7 g/dL (30.0-36.0) L 10/16/21 02:24 RDW 25.3 % (12.1-15.1) H 10/16/21 02:24 Plt Count 91 10^3/cmm (130-400) L 10/16/21 02:24 MPV Not Reportable 10/16/21 02:24 Lymph % (Auto) Not Reportable 10/16/21 02:24 [place] % (Auto) Not Reportable 10/16/21 02:24 Lymph # (Auto) Not Reportable 03/18/22 02:24 [place] # (Auto) Not Reportable 10/16/21 02:24 Total Counted 100 (0-100) 10/16/21 02:24 Atypical Lymphs % 3.0 % (0-5) 10/16/21 02:24 Absolute Neutrophils 1.7 10^3/cmm (1.4-6.5) 10/16/21 02:24 Segmented Neutrophils 34 % 10/16/21 02:24 Abs Segm Neuts (Man) 1.2 10/cmm (1.6-7.1) L 10/16/21 02:24 Band Neutrophils 14.0 % 10/16/21 02:24 Abs Band Neuts (Man) 0.5 10^3/cmm (0.0-1.2) 10/16/21 02:24 Absolute Lymphocytes 1.4 10^3/cmm (1.2-3.4) 10/16/21 02:24 Lymphocytes (Manual) 36 % 10/16/21 02:24 Monocytes (Manual) 4.0 % 10/16/21 02:24 Absolute Monocytes 0.1 10^3/cmm (0.1-0.6) 10/16/21 02:24 Eosinophils (Manual) 5 % 10/16/21 02:24 Absolute Eosinophils 0.1 10^3/cmm (0.0-0.7) 10/16/21 02:24 Basophils (Manual) 0.0 % 10/16/21 02:24 Absolute Basophils 0.0 10^3/cmm (0.0-0.2) 10/16/21 02:24 Metamyelocytes 4.0 % 10/16/21 02:24 Nucleated RBCs 2.0 /100WBC (0-1) H 10/16/21 02:24 Smudge Cells Trace 10/16/21 02:24 Platelet Estimate Decreased (Normal) L 10/16/21 02:24 Polychromasia 1+ H 10/16/21 02:24 Poikilocytosis 2+ H 10/16/21 02:24 Anisocytosis 3+ H 10/16/21 02:24 Ovalocytes 1+ H 10/16/21 02:24 Bren Cells 2+ H 10/16/21 02:24 Acanthocytes (Spur) 1+ H 10/16/21 02:24 Sodium 130 mmol/L (136-145) L 10/16/21 02:24 Potassium 4.5 mmol/L (3.5-5.1) 10/16/21 02:24 Chloride 96 mmol/L (98-107) L 10/16/21 02:24 Carbon Dioxide 12 mmol/L (22-29) L 10/16/21 02:24 Anion Gap 26.5 (5-19) H 10/16/21 02:24 BUN 22 mg/dL (6-20) H 10/16/21 02:24 Creatinine 0.9 mg/dL (0.5-0.9) 10/16/21 02:24 GFR Calculation 69.0 mL/min (90-130) L 10/16/21 02:24 Glucose 74 mg/dL (65-115) 10/16/21 02:24 Calculated Osmolality 272 mOsm/kg (285-295) L 10/16/21 02:24 Lactic Acid 7.2 mmol/L (0.5-2.2) H* 10/16/21 02:24 Calcium 9.1 mg/dL (8.5-10.5) 10/16/21 02:24 Total Bilirubin 3.0 mg/dL (0.15-1.2) H 10/16/21 02:24 AST 47 U/L (0-32) H 10/16/21 02:24 ALT 17 U/L (0-33) 10/16/21 02:24 Alkaline Phosphatase 126 IU/L (35-105) H 10/16/21 02:24 Troponin T Baseline 9 ng/L (0-10) 10/16/21 02:24 Troponin T 120 Minute 8.58 ng/L (0-10) 10/16/21 04:18 Delta Troponin T -0.42 ABS# (0-10) L 10/16/21 04:18 NT-Pro-B Natriuret Pep 814 pg/mL (0-125) H 10/16/21 02:24 Total Protein 7.9 g/dL (6.6-8.7) 10/16/21 02:24 Albumin 3.5 g/dL (3.5-5.2) 10/16/21 02:24 Globulin 4.4 g/dL (1.3-4.6) 10/16/21 02:24 Procalcitonin 9.76 ng/mL (0-0.5) H 10/16/21 02:24 HCG, Qual Negative (Negative) 10/16/21 02:24 Urine Color Yellow (Yellow) 10/16/21 04:32 Urine Appearance Clear (CLEAR) 10/16/21 04:32 Urine pH 7 (5-7) 10/16/21 04:32 Ur Specific [place] 1.000 (1.005-1.030) L 10/16/21 04:32 Urine Protein Neg (Negative) 10/16/21 04:32 Urine Glucose (UA) Norm (Normal) 10/16/21 04:32 Urine Ketones Negative (Negative) 10/16/21 04:32 Urine Blood Neg (Negative) 10/16/21 04:32 Urine Nitrate Negative (Negative) 10/16/21 04:32 Urine Bilirubin Neg (Negative) 10/16/21 04:32 Urine Urobilinogen 1 mg/dL (Negative) H 10/16/21 04:32 Ur Leukocyte Esterase Negative (Negative) 10/16/21 04:32 Coronavirus 229E (PCR) Not detected (NOT DETECT) 10/16/21 05:30 SARS-CoV-2 (PCR) Not detected (NOT DETECT) 10/16/21 05:30 SARS-CoV-2 Ag (Rapid) Negative (Negative) 10/16/21 02:24 EKG Data EKG 1: I personally reviewed and interpreted this EKG as follows: EKG Interpretation Date: 10/16/21 EKG interpretation time: 03:19 Interpretation: Twelve-lead EKG shows a regular rhythm at a rate of 92. SD interval 148, QRS duration 98, QTc 449. Normal axis. Interpretation: Sinus rhythm. EKG 2: I personally reviewed and interpreted this EKG as follows: EKG Interpretation Date: 10/16/21 EKG interpretation time: 02:35 Interpretation: Twelve-lead EKG shows a regular rhythm at a rate of 97. SD interval 152, QRS duration 86, QTc 447. Normal axis. Interpretation: Sinus rhythm. Critical Care Time Critical Care Time: Critical Care Time: Yes Total Critical Care Time: 80 Attestation: Due to a high probability of clinically significant, possibly life threatening deterioration, the patient required my highest level of attention and preparedness to intervene emergently and I personally spent this critical care time directly and personally managing the patient. This critical care time included obtaining a history; examining the patient; pulse oximetry; ordering and review of laboratory and imaging studies; arranging urgent treatment with development of a management plan; evaluation of patient's response to treatment; frequent reassessment; and, discussions with other providers as applicable. It was exclusive of separately billable procedures. Primary system involved is pulmonary Discharge Plan Discharge Patient Disposition: Admitted As Inpatient Admit Provider: Miguel Ángel Stephens Clinical Impression: Pneumonia, Sepsis, Acute respiratory failure with hypoxia, Pancytopenia Condition: Stable Sign Out Sign Out Data: Patient Sign Out occurred on 10/16/21 at 02:47. Patient's care was discussed, and care was transferred from to Lobito Turner MD. Post-Handoff Eval: See MDM Coding Level of Care Code ED Retail Representative for Chg Fwd Exam Comprehensive
[2021-10-16 02:34] LABS: Hematocrit 31.4 % (37.0-47.0); Mean Corpuscular HGB Conc 28.7 g/dL (30.0-36.0); Mean Corpuscular Hemoglobin 21.7 pg (28.0-34.0); Mean Corpuscular Volume 75.8 fl (81-99); Platelet Count 91 10^3/cmm (130-400); Red Blood Count 4.14 10^6/uL (4.1-5.3); Red Cell Distribution Width 25.3 % (12.1-15.1); White Blood Count 3.5 10^3/uL (4.0-10.0)
[2021-10-16 02:51] LABS: Troponin(5th) Baseline 9 ng/L (0-10)
[2021-10-16 02:55] LABS: Slide Review Slide Review Perform
[2021-10-16] MEDS: LORazepam 2 mg/mL INJ 1 mL 0.5 MG IVP (02:55)
[2021-10-16 02:56] LABS: Absolute Eosinophils 0.1 10^3/cmm (0.0-0.7); Absolute Segmented Neutrophil 1.2 10/cmm (1.6-7.1); Band Neutrophils Absolute 0.5 10^3/cmm (0.0-1.2); Eosinophils 5 %; Lymphocytes 36 %; Monocytes Absolute 0.1 10^3/cmm (0.1-0.6); Segmented Neutrophils 34 %; Total Cells Counted 100 (0-100)
[2021-10-16 02:57] LABS: Absolute Neutrophil 1.7 10^3/cmm (1.4-6.5); Anisocytosis 3+; Lymphocytes Absolute 1.4 10^3/cmm (1.2-3.4); Platelet Estimate Decreased (Normal); Poikilocytosis 2+; Polychromasia 1+
[2021-10-16 02:58] LABS: Acanthocytes 1+; Burr Cells 2+; Smudge Cells Trace
[2021-10-16 02:59] LABS: Ovalocytes 1+
[2021-10-16 03:04] LABS: Lactic Sepsis W/Reflex 7.2 mmol/L (0.5-2.2); SARS Covid-2 Antigen Negative (Negative)
[2021-10-16 03:09] LABS: NT Pro B Type Natriuretic Pept 814 pg/mL (0-125); Procalcitonin 9.76 ng/mL (0-0.5)
[2021-10-16 03:20] LABS: Alanine Aminotransferase 17 U/L (0-33); Albumin Level 3.5 g/dL (3.5-5.2); Alkaline Phosphatase 126 IU/L (35-105); Anion Gap 26.5 (5-19); Aspartate Amino Transferase 47 U/L (0-32); Blood Urea Nitrogen 22 mg/dL (6-20); Calcium 9.1 mg/dL (8.5-10.5); Carbon Dioxide 12 mmol/L (22-29); Chloride 96 mmol/L (98-107); Creatinine Clr Calc Pharmacy 105.7724; Globulin 4.4 g/dL (1.3-4.6); Glucose 74 mg/dL (65-115); Osmolality Calculated 272 mOsm/kg (285-295); Potassium 4.5 mmol/L (3.5-5.1); Sodium 130 mmol/L (136-145); Total Protein 7.9 g/dL (6.6-8.7)
[2021-10-16] MEDS: iohexol 350 mg/mL 100 mL Btl IV (03:25)
[2021-10-16] MEDS: piperacillin-tazobactam 4.5 GM in sodium chloride 0.9% (plus) 50 ML IV (03:42)
[2021-10-16] MEDS: sodium chloride 0.9% 1,000 ML 999 ML IV ×2 (03:42)
[2021-10-16 04:15] LABS: Reflex Lactate Order REFLEX LACTIC ORDERD
--- NOTE | 2021-10-16 04:16 | ECG_ITS ---
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 Measurements Intervals [place] Rate: 92 P: 57 NJ: 148 QRS: 49 QRSD: 98 T: 75 QT: 362 QTc: 449 Interpretive Statements SINUS RHYTHM Compared to ECG 10/16/2021 02:33:33 No significant changes Electronically Signed On 10-16-2021 20:12:56 CDT by Raz Kenney M.D. [id number]
[2021-10-16] MEDS: ipratropium-albuterol 3 mL Neb INHALATION ×4 (04:25→20:20)
[2021-10-16 04:42] LABS: Add Urine Microscopic? NO; Charge for UA Resulting for Rev
[2021-10-16 04:43] LABS: Troponin 5 2HR 8.58 ng/L (0-10)
[2021-10-16 04:49] LABS: Troponin 5 2HR Delta -0.42 ABS# (0-10)
[2021-10-16 04:51] LABS: Bilirubin Urine Neg (Negative); Blood Urine Neg (Negative); Glucose Urine UA Norm (Normal); Ketones Urine Negative (Negative); Leukocyte Esterase Urine Negative (Negative); Nitrate Urine Negative (Negative); Protein Urine Neg (Negative); Urine Appearance Clear (CLEAR); Urine Color Yellow (Yellow); Urobilinogen Urine 1 mg/dL (Negative); pH Urine 7 (5-7)
[2021-10-16] MEDS: LORazepam 2 mg/mL INJ 1 mL 1 MG IVP (04:54)
[2021-10-16 05:22] LABS: HCG, Serum Qual Negative (Negative)
--- NOTE | 2021-10-16 06:51 | USR_ITS ---
PROCEDURE INFORMATION: Exam: US Abdomen, Limited; Right Upper Quadrant Exam date and time: 10/16/2021 7:54 AM Age: 41 years old Clinical indication: Abnormal findings; Abnormal lab test; Other: Elevated bili, sepsis; Additional info: Hepatobiliary - elev bili, sepsis TECHNIQUE: Imaging protocol: US abdomen. Real time ultrasound with image documentation. Limited exam focused on the right upper quadrant. COMPARISON: US abdomen limited [id number] 11/13/2020 7:38 AM FINDINGS: Limited visualization of abdominal organs. Liver: Normal. No masses. Gallbladder: Normal. No gallstones. There is no gallbladder wall thickening. Common bile duct: Normal. No stones. No dilation. Pancreas: Visualized pancreas is unremarkable. Right kidney: Normal. No mass. No hydronephrosis. US/US abdomen limited [id number] IMPRESSION: No acute findings.
--- NOTE | 2021-10-16 06:52 | P.HP_ITS ---
Providers/Chief Complaint Admitting Physician: Miguel Ángel Stephens Primary Care Provider: FARHAT Rivera Chief Complaint: coughing History of Present Illness 41-year-old lady with several recent hospitalizations, with lumbar epidural abscess, lumbar discitis, osteomyelitis, ESBL UTI, with also history of portal hypertension, hepatic encephalopathy with hyperammonemia, past history of polysubstance abuse and IV drug abuse, which she states is currently in remission, DM2, HTN, hypothyroidism, CHF, ARTURO, not normally on supplemental oxygen, other chronic medical conditions presented to ER with complaints of shortness of breath, productive cough and hemoptysis which she states have started after a fall 2 days ago on her porch at which time she fell down on the right side of her chest with resultant pain, and subsequently the respiratory symptoms. On presentation she is found in hypoxic respiratory failure. Oxygen saturation in the 80s, requiring up to 80% FiO2 supplementation with heated high flow cannula started in the ER, initially on nonrebreather in transit to the [facility]. She had declined ABG. She is noted afebrile, with pancytopenia, similar to prior levels, including neutropenia, absolute neutrophils 1200, with noted sinus tachycardia 95-101, tachypnea 24-36. With optimization of oxygen supplementation, saturations improved to low 90s. She is found in metabolic acidosis, bicarb 12, anion gap 26.5, with lactic acidosis of 7.2. Baseline and 2-hour troponin IX, 8.58 respectively. EKG with sinus rhythm. NT proBNP 814. Procalcitonin 9.76. Sodium 130, chloride 96, BUN 22, creatinine 0.9. Debility 3, AST 47, ALT normal, alk phos 126. She was additionally assessed by rapid COVID-19 antigen and COVID-19 PCR, both of which were negative. Additional assessment with CT angiogram of the chest showed no evidence of PE, patchy bilateral irregular groundglass opacity in upper hemithoraces with consolidation in right lower lobe and right middle lobe as well as lingula compatible with bilateral pneumonia. CT abdomen pelvis with intermediate attenuation material in gallbladder neck likely representing gallbladder sludge. Mild splenomegaly. Mild prominent mesenteric lymph nodes seen and right flank measuring up to 15 mm transverse dimension. Nonobstructing 3.6 mm calculus in left lower kidney pole. Benign 7.7 cm cyst in posterior aspect of right kidney. Recent hospitalizations include hospital stay here 07/28-08/13 during which he underwent treatment for lumbar discitis, epidural abscess, vertebral osteomyelitis, ESBL UTI, hepatic encephalopathy, at that time with discharge arrangements for continued IV antibiotic course at skilled facility, however, ended up leaving home instead AGAINST MEDICAL ADVICE with arrangements for oral antibiotic therapy. With subsequent follow-up with Ortho spine surgery, then prompted by symptoms of back pain hospitalization at [facility], which underwent additional assessment including by infectious disease specialist. States that was cleared of suspicion of ongoing spinal infection, and discharged without antibiotics. From what I can tell from the documentation obtained from [facility] MRI was showing pyogenic diskitis and epidural phlegmon, so Lumbar disk biopsy/aspiration was obtained and no growth was found on culture. No surgical intervention recommended by neurosurgery and outpatient follow up with local ID recommended by ID. Review of Systems Const: Reports: malaise; Denies: fever(s), chills or body aches Eyes: Denies: change in vision or eye redness ENMT: Denies: throat pain, oral sores or ear or mastoid pain Card: Denies: chest pain, edema, pre-syncope or dyspnea on exertion Resp: Reports: dyspnea, productive cough, change in phlegm color and hemoptysis GI: Denies: abdominal pain, nausea, vomiting, diarrhea, constipation, hematochezia or melena : Denies: flank pain, urinary frequency or hematuria Musc: Reports: other (R side chest tender after fall several days ago); Denies: back pain, joint swelling or joint redness Skin/Breast: Denies: rash, sores or new lesions Neuro: Denies: headache(s), numbness in extremities, weakness in extremities, dizziness, confusion or seizure-like activity Endo: Denies: polyuria or polydipsia Patricio/Lymph: Denies: easy bleeding or purpura All/Imm: Denies: urticaria, throat swelling or tongue swelling Medications/Allergies Home Medications Medication Instructions Recorded Confirmed Last Taken Type blood sugar diagnostic #100 ea 10/14/20 09/15/21 Unknown Rx sennosides 8.6 mg tablet (Senna 8.6 mg PO DAILY #30 tab 03/30/21 09/15/21 Unknown Rx Lax) potassium chloride 10 mEq 10 meq PO DAILY cap 05/26/21 09/15/21 Unknown History capsule,extended release vitamin with calcium 1 tab PO DAILY tab 05/26/21 09/15/21 Unknown History no.72-iron 27 mg-folic acid 1 mg tablet thiamine HCl (vitamin B1) 100 mg 100 mg PO DAILY tab 05/26/21 09/15/21 Unknown History tablet gabapentin 300 mg capsule 300 mg PO DAILY 30 Days #30 cap 06/19/21 09/15/21 Unknown Rx lactulose 10 gram/15 mL oral 45 ml PO DAILY PRN #473 ml 06/19/21 09/15/21 Unknown Rx solution (Generlac) levothyroxine 100 mcg tablet 100 mcg PO DAILY #30 tab 06/19/21 09/15/21 Unknown Rx propranolol 40 mg tablet 40 mg PO BID #30 tab 06/19/21 09/15/21 Unknown Rx albuterol sulfate 90 mcg/actuation 2 puff INHALATION QID PRN 07/28/21 09/15/21 Unknown History aerosol inhaler insulin detemir U-100 100 unit/mL 10 unit (0.1 mL) SUBCUT Q12H #10 ml 08/13/21 09/15/21 Unknown Rx subcutaneous solution (Levemir U-100 Insulin) insulin lispro 100 unit/mL See Rx Instructions .ROUTE 08/13/21 09/15/21 Unknown Rx subcutaneous solution (Humalog .COMPLEX #10 ml U-100 Insulin) lactulose 20 gram/30 mL oral 20 g (30 mL) PO BID #1200 ml 08/13/21 09/15/21 Unknown Rx solution lactulose 20 gram/30 mL oral 20 g (30 mL) PO Q24H #1200 ml 08/13/21 09/15/21 Unknown Rx solution naproxen 500 mg tablet 500 mg PO BID PRN 30 Days #60 tab 08/13/21 09/15/21 Unknown Rx vancomycin 1.5 gram/300 mL-water 1,500 mg (300 mL) CONTINUOUS IV 08/13/21 09/15/21 Unknown Rx for injection (PEG,NADA) IV INFUSION Q12H #1800 ml piggyback pen needle, diabetic 29 gauge x See Rx Instructions .ROUTE 08/18/21 09/15/21 Unknown Rx 1/2 (Comfort EZ Pen [place]) .COMPLEX #100 ea cyclobenzaprine 5 mg tablet 5 mg PO BID PRN 30 Days #60 tab 10/14/21 Unknown Rx oxycodone 5 mg tablet 5 mg PO Q4H PRN 7 Days #40 tab 10/14/21 Unknown Rx Allergies Allergy/AdvReac Type Severity Reaction Status Date / Time iodine Allergy Mild unknown Verified 09/15/21 15:00 Sulfa (Sulfonamide Allergy Mild rash Verified 09/15/21 15:00 Antibiotics) PFSH Acute PFSH: Medical History Abdominal pain Adjustment reaction with anxiety and depression Alcohol use disorder Anemia Anxiety with depression Bipolar disorder Borderline personality disorder Cholelithiasis Congestive heart failure Cystitis Diabetes mellitus, type II Drug-induced psychotic disorder FH: breast cancer in first degree relative H/O chronic hepatitis Hepatic encephalopathy Hypertension Hypertension screen Hypothyroid Meningitis Metabolic encephalopathy Methamphetamine abuse Muscle spasm Obstructive sleep apnea Opiate dependence 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 Pneumonia Polysubstance abuse Polysubstance abuse Respiratory failure with hypoxia Sepsis Staphylococcus aureus bacteremia Vitamin D deficiency Yeast dermatitis Surgical History History of Social History Smoking and tobacco status: current every day smoker Second hand smoke exposure: No Smoking risk assessment/counseling performed?: No Alcohol intake: never Desire information about alcohol rehabilitation?: No Counseling given: No Substance/Drug Use: former Desire information about substance/drug rehabilitation?: No Counseling given: No Female Reproductive History: Date of last menstrual period: 10/23/20 Vitals/I&O/Wt Last Vital Signs Temp 97.3 F L 10/16/21 02:04 Pulse 99 10/16/21 06:13 Resp 28 H 10/16/21 06:13 BP 124/85 10/16/21 05:37 Pulse Ox 91 10/16/21 06:13 Weight last 48 hrs Weight 104.326 kg Physical Exam Const: COMMON NORMALS: patient oriented x3 and alert GENERAL APPEARANCE: cooperative and disheveled; not comfortable NUTRITIONAL APPEARANCE: obese ORIENTATION/CONSCIOUSNESS: Yes awake HENMT: COMMON NORMALS: oropharynx normal HEAD & SCALP: other (debris and dander in hair, do not overtly see lice on head or bedding) Neck/C-Spine: COMMON NORMALS: no JVD Resp: COMMON NORMALS: clear to auscultation bilaterally EFFORT & INSPECTION: Yes tachypneic AUSCULTATION: diminished lung sounds on the right Cardio: COMMON NORMALS: no JVD, regular rhythm, S1 normal heart sound present, S2 normal heart sound present and No murmurs present (Cardio) RATE: tachycardic RHYTHM: regular rhythm HEART SOUNDS: S1 normal heart sound pr esent and S2 normal heart sound present GI: COMMON NORMALS: Normal to inspection, nondistended, normoactive bowel sounds present, Soft to palpation and non-tender PALPATION: Yes Soft to palpation Extremity: COMMON NORMALS: no joint enlargement and no pedal edema Neuro: COMMON NORMALS: patient oriented x3 and moves all extremities Skin: COMMON NORMALS: no rashes or lesions noted GENERAL SKIN EXAM: no rashes or lesions noted Data : 10/16/21 02:24 10/16/21 02:24 Micro: Microbiology 10/16/21 02:20 Blood Culture - Preliminary Blood SPECIMEN COLLECTED 10/16/21 02:24 Blood Culture - Preliminary Blood SPECIMEN COLLECTED A&P Assessment and plan (1) Acute respiratory failure with hypoxia: Initial saturations in the 80s despite nonrebreather in transit. Saturations are doing better currently in the low 90s on 80% FiO2 on heated high flow. She is noting some discomfort due to air warming, although states she understands the reasoning behind that and humidification. Requests some medication for anxiety due to panic-like symptoms she states experienced earlier with oxygen being set up. Requested Xanax as needed as discussed with her as she is also noted to be fidgety by nursing staff. Hypoxic respite failure secondary to multifocal bilateral pneumonia sepsis. Possible hospital-acquired pneumonia with recent hospitalization. Continue coverage currently with vancomycin and Zosyn. COVID-19 PCR negative. Sputum cultures requested, urine bacterial antigens. She does report recent fall, with injury to right side of the chest, lung contusion probably less likely. Possibly contributing from shallow respiratory effort. Requested incentive spirometer, flutter valve. We will add lidocaine patch. No PE on CTA. Status: Acute (2) Pneumonia: Possible hospital-acquired pneumonia. As above. Status: Acute (3) Sepsis: Sepsis with sinus tachycardia, tachypnea, does have leukopenia as well, although this is more chronic. Severe sepsis with lactic acidosis, 7.2. Received fluid resuscitation. Recheck lactic acid. Blood cultures collected. Follow-up, as well as other aggressive studies. Status: Acute (4) Hemoptysis: Reports intermittent hemoptysis ever since the fall. Monitor amount. Avoid anticoagulant for VT prophylaxis at the moment. No PE noted. Status: Acute (5) Hyperbilirubinemia: Hyperbilirubinemia, this appears to be worse than prior. CT scan with noted intermittent deviation material within gallbladder neck likely representing sludge. Will additionally assessed by right upper quadrant ultrasound. She does not have abdominal pain. Alk phos abnormal but appears to be chronically elevated, today 126 which is lower than prior. Status: Acute (6) Lactic acidosis: Severe sepsis, possible liver fibrosis or cirrhosis. Status: Acute (7) Pancytopenia: Similar to prior. Monitor counts. Status: Acute (8) Pediculosis: Respiratory therapy reports seeing lice falling of her head onto the bedding on the floor. I could not overtly see any on examination. Is somewhat disheveled, with debris in the hair. Discussed with her cannot exclude, she is agreeable to treatment empirically but requests doing so later in the day. Requested permethrin. Maintain isolation. Status: Acute Plan Recent discitis, epidural abscess, vertebral OM: hospital stay here 07/28-08/13 during which he underwent treatment for lumbar discitis, epidural abscess, vertebral osteomyelitis, ESBL UTI, hepatic encephalopathy, at that time with discharge arrangements for continued IV antibiotic course at skilled facility, however, ended up leaving home instead AGAINST MEDICAL ADVICE with arrangements for oral antibiotic therapy. With subsequent follow-up with Ortho spine surgery, then prompted by symptoms of back pain hospitalization at [facility], which underwent additional assessment including by infectious disease specialist. States that was cleared of suspicion of ongoing spinal infection, and discharged without antibiotics. From what I can tell from the documentation obtained from [facility] MRI was showing pyogenic diskitis and epidural phlegmon, so Lumbar disk biopsy/aspiration was obtained and no growth was found on culture. No surgical intervention recommended by neurosurgery and outpatient follow up with local ID recommended by ID. [facility] records indicate history of heavy alcohol intake. Requested for home medications to be reconciled. Please reorder once ready. Recent ESBL UTI DM2 HTN Hypothyroidism History of metabolic encephalopathy, hepatic encephalopathy Portal hypertension, possible liver fibrosis and/or cirrhosis Anxiety, depression, bipolar personality disorder History of multisubstance abuse and IVDU, states he stopped using anything anymore. Other chronic conditions. Attestations Medical Necessity Statement*: Admission of over 2 midnights is anticipated for assessment of management of hypoxic respiratory failure, sepsis, possible hospital-acquired bilateral pneumonia in a lady with multiple recent hospitalizations and recent discitis, epidural abscess. Coding Level of Care Code Acute Dental Lab Technician for [facility] Fwd Diagnoses Acute respiratory failure with hypoxia J96.01 Pneumonia J18.9 Sepsis A41.9 Hemoptysis R04.2 Hyperbilirubinemia E80.6 Lactic acidosis E87.2 Pancytopenia D61.818 Pediculosis B85.2
[2021-10-16 07:22] LABS: Adenovirus Not Detected (NOT DETECT); Chlamydia Pneumoniae Not Detected (NOT DETECT); Coronavirus 229E,HKU1,NL63,OC4 Not Detected (NOT DETECT); Human Metapneumovirus Not Detected (NOT DETECT); Human Rhinovirus/Enterovirus Not Detected (NOT DETECT); Influenza A Not Detected (NOT DETECT); Influenza A H1 Not Detected (NOT DETECT); Influenza A H1-2009 Not Detected (NOT DETECT); Influenza A H3 Not Detected (NOT DETECT); Influenza B Not Detected (NOT DETECT); Mycoplasma Pneumoniae Not Detected (NOT DETECT); Parainfluenza Virus Type 1 Not Detected (NOT DETECT); Parainfluenza Virus Type 2 Not Detected (NOT DETECT); Parainfluenza Virus Type 3 Not Detected (NOT DETECT); Parainfluenza Virus Type 4 Not Detected (NOT DETECT); Respiratory Syncytial Virus A Not Detected (NOT DETECT); Respiratory Syncytial Virus B Not Detected (NOT DETECT); SARS-COV-2 Not Detected (NOT DETECT)
--- NOTE | 2021-10-16 08:23 | PC.NURSE ---
patient pulled out IV at shift change and got self out of bed, reorientated back to bed
--- NOTE | 2021-10-16 08:44 | PC.PHAR ---
PT UNABLE TO VERIFY- VERFIED BY LAST FILLED ON EXTERNAL MED LIST
[2021-10-16] MEDS: lidocaine 5% Patch 1 PATCH TOPICAL ×2 (08:56→21:00)
[2021-10-16] MEDS: pantoprazole 40 mg SDV IVP (08:56)
[2021-10-16] MEDS: piperacillin-tazobactam 3.375 GM in sodium chloride 0.9% (plus) 50 ML IV ×2 (09:02→17:11)
[2021-10-16 09:21] LABS: Troponin 5 6HR 7.25 ng/L (0-10)
[2021-10-16 09:24] LABS: Troponin 5 6HR Delta -1.75 ng/L (0-12)
--- NOTE | 2021-10-16 10:33 | PC.CHAP ---
Pastoral Care Encounter/Spiritual Assessment Type of Contact [] Declined rn acute visit [] Patient/Family/Request visit [] Outpatient visit [] Follow-up visit [] Physician referral [] Code/Alert [x] Routine visit [] Staff referral [] Actively dying [] Patient sleeping [] Family support [] [] Out of room [] Palliative care [] [x] Receiving care in room [] Pre-surgical visit [] Trauma [] Long length of stay [x] ICU visit [x] Other: patient requested ice chips.. gave her small cup with RN's approval Relational/Emotional Strength [] Patient feels connected with others/family/visitors/staff [] Distress [] Loneliness/isolation [] Abandonment Spirituality of Patient [] Person of Connie [] Attends Moravian of their Connie [] Believes in Prayer [] Reads Bible or Jainism materials [] There are Spiritual issues to be addressed Pantographer Interventions [x] Prayer [] Active listening [] Non-anxious presence [] Spiritual/emotional support [] Crisis/trauma care [] Spiritual counseling [] Bereavement support [] Provided bereavement packet [] Provided Bible/devotional materials [] Provided toy/stuffed animal, coloring book to patient or family member [] Provided Communion [] Anointing/[place] [] Salvation [x] Completed spiritual assessment [] Other: Impact on Illness or Injury [] Angry [] Fearful [] Anxious [] Often cries [] Exhaustion [] Unable to work [] Unable to attend judaism [] Unable to walk/stand [] Unable to read [] Unable to drive [] Unable to eat/drink [] Unable to sleep [] Unable to be with family [] Patient intubated [] Other: Summary Time spent with patient
[2021-10-16 12:23] LABS: Glucose Point of Care 78 mg/dL (70-110)
--- NOTE | 2021-10-16 13:24 | PC.NURSE ---
Respiratory rate 30 to 40, O2 79% on 80% HHF, Dr Blackwood notified and approved t.o. for precedex bhaskar
--- NOTE | 2021-10-16 14:55 | PC.NURSE ---
Patient still breathing 35 to 40 times a minute, O2 88 to 90 on 80% fio2. Dr. Blackwood notified, HCP to come to bedside
[2021-10-16] MEDS: dexmedeTOMIDine 0.9 % NaCL 400 MCG/100 ML PREMIX IV (15:00)
--- NOTE | 2021-10-16 15:13 | PC.NURSE ---
Dr. Blackwood at bedside, observed high RR and O2 of 88 on 80% HHF, HCP to put in Xanax order
[2021-10-16] MEDS: ALPRAZolam 0.5 mg Tablet PO (17:11)
[2021-10-16] MEDS: vancomycin 1,500 MG/300 ML PIGGYBACK 200 MG IV (17:11)
--- NOTE | 2021-10-16 17:24 | PM.PN ---
Subjective Subjective: Patient admitted in the adjuster electrical contacts hours. Call from RN about patient's respiratory rate. She is on high flow nasal cannula of 80%. Oxygenation is hovering in the mid to upper 80s. They showed positive for amphetamines. Patient denies use of meth. Patient states that her breathing is better but she still feels mildly short of breath Vitals/I&O/Wt Last Vital Signs Temp 97.3 F L 10/16/21 02:04 Pulse 100 10/16/21 14:13 Resp 18 10/16/21 14:09 BP 164/115 10/16/21 14:00 Pulse Ox 91 10/16/21 14:09 10/16/21 10/16/21 10/16/21 06:59 14:59 22:59 Intake Total 250 / 250 550 / 800 Balance 250 / 250 550 / 800 Weight last 48 hrs Weight 104.326 kg Physical Exam Narrative: Obese patient seen sitting upright in bed with eyes closed. She awakens easily. Her respiratory rate is approximately 30 on entering the room. Heart is regular slightly tachycardic murmur auscultated lungs diminished breath sounds throughout particularly at the right base. Abd: soft nontender nondistended positive bowel sounds no hepatosplenomegaly is palpable extremities mild nonpitting pedal edema Data : 10/16/21 02:24 10/16/21 02:24 Micro: Microbiology 10/16/21 02:24 Blood Culture - Preliminary Blood Gram positive cocci 10/16/21 02:20 Blood Culture - Preliminary Blood Gram positive cocci 10/16/21 10:20 Legionella Urinary Antigen - Final Urine Catheterized 10/16/21 10:20 Bacterial Antigens - Final Urine,Voided A&P Assessment and plan (1) Acute respiratory failure with hypoxia: Status: Acute (2) Pneumonia: Status: Acute (3) Lactic acidosis: Status: Acute (4) Diabetes mellitus, type II: Status: Acute Qualifiers: Diabetes mellitus adjunct faculty for medical terminology insulin use: unspecified adjunct faculty for medical terminology insulin use status Diabetes mellitus complication status: with other specified complication Qualified Code(s): E11.69 - Type 2 diabetes mellitus with other specified complication (5) Sepsis: Status: Acute Plan Suspected drug usage that patient not admitting to. Discussed with RN to please give the Xanax as prescribed as needed. She was able to take this medication and has calmed down slightly. I also encouraged incentive spirometry and instructed the patient myself. I asked the RN to continue incentive spirometry aggressively. As I left the ICU I was contacted by the nurse with positive blood cultures. Growing both rods and gram-positive cocci. She is currently on Zosyn and vancomycin; will continue. Attestations Medical Necessity Statement*: Patient requiring ICU level care with heated high flow oxygen at 80%. Coding Level of Care Code Acute Marketing Intelligence Analyst for [facility] Diagnoses Acute respiratory failure with hypoxia J96.01 Pneumonia J18.9 Lactic acidosis E87.2 Diabetes mellitus, type II E11.69 Diabetes mellitus fci insulin use: unspecified adjunct faculty for medical terminology insulin use status Diabetes mellitus complication status: with other specified complication Sepsis A41.9
[2021-10-16 17:35] LABS: Bacillus cereus group Not Detected (NOT DETECT); Bacillus subtillis group Not Detected (NOT DETECT); Corynebacterium Not Detected (NOT DETECT); Cutibacterium acnes (P.acnes) Not Detected (NOT DETECT); Enterococcus Not Detected (NOT DETECT); Enterococcus faecalis Not Detected (NOT DETECT); Enterococcus faecium Not Detected (NOT DETECT); Lactobacillus species Not Detected (NOT DETECT); Listeria Not Detected (NOT DETECT); Listeria monocytogenes Not Detected (NOT DETECT); Micrococcus Not Detected (NOT DETECT); Pan Candida Not Detected (NOT DETECT); Pan Gram-Negative Not Detected (NOT DETECT); Staphylococcus epidermidis Not Detected (NOT DETECT); Staphylococcus lugdunensis Not Detected (NOT DETECT); Staphylococcus species Not Detected (NOT DETECT); Streptococcus agalactiae Not Detected (NOT DETECT); Streptococcus anginosus group Not Detected (NOT DETECT); Streptococcus pneumoniae Detected (NOT DETECT); Streptococcus pyogenes Not Detected (NOT DETECT); Streptococcus species Detected (NOT DETECT)
--- NOTE | 2021-10-16 18:34 | PC.NURSE ---
lost IV access, 2 nurses have attempted at this time
[2021-10-16 19:03] LABS: Glucose Point of Care 139 mg/dL (70-110)
[2021-10-16] MEDS: LORazepam 2 mg/mL INJ 1 mL IM (21:08)
[2021-10-16] MEDS: levoFLOXacin 750 mg Tablet PO (21:08)
[2021-10-16] MEDS: linezolid 600 mg Tablet PO (21:08)
[2021-10-16 22:43] LABS: Ammonia 40 umol/L (11-51)
[2021-10-17] VITALS (33 sets, daily range): BP systolic 105–162; BP diastolic 52–85; PULSE 80–93; RESP 18–50; TEMP 36.6–36.8; O2SAT 83–97; BMI 34.0
[2021-10-17] MEDS: ipratropium-albuterol 3 mL Neb INHALATION ×4 (03:00→20:03)
--- NOTE | 2021-10-17 06:26 | PC.NURSE ---
Dr. Stephens was paged at 1913 to discuss patient's respiratory rate and status, and lack of IV access after multiple attempts. Pt's history was discussed and concern for possible withdrawl sysmptoms currently or in the future. Also discussed the possible need for an ABG. Order was given to attempt foot IV. initiating CIWA protocol and placed order for ammonia level. At 1999, Dr. Stephens notified foot IV access was unsuccessful. Orders placed for PICC line to be placed during day shift. Patient's daughter, Anupama, updated over the phone, all questions answered
[2021-10-17 08:22] LABS: Glucose Point of Care 89 mg/dL (70-110)
--- NOTE | 2021-10-17 09:26 | PC.NURSE ---
no iv acess this am restless frequent requests ... anxious. small amt liquids given called other rn for attempt .
[2021-10-17] MEDS: pantoprazole 40 mg SDV IVP (09:46)
[2021-10-17] MEDS: multivitamin therapeutic Tablet 1 TAB PO (09:46)
[2021-10-17] MEDS: linezolid 600 mg Tablet PO (09:46)
[2021-10-17] MEDS: folic acid 1 mg Tablet PO (09:46)
[2021-10-17] MEDS: thiamine 100 mg Tablet PO (09:46)
[2021-10-17] MEDS: lidocaine 5% Patch 1 PATCH TOPICAL ×2 (09:50→21:00)
--- NOTE | 2021-10-17 10:45 | PC.NURSE ---
mother in room when doctor visit aware of status ect encouraged mother to let staff provide fluids ect as we need to keep track of intake and is on clear liquid
[2021-10-17 11:40] LABS: Basophils % 0.1 %; Eosinophils # 0.1 10^3/uL (0.0-0.8); Eosinophils % 1.4 %; Hematocrit 26.3 % (37.0-47.0); Hemoglobin 7.6 g/dL (11.5-15.3); Lymphocytes # 1.7 10^3/uL (0.8-4.8); Lymphocytes % 17.8 %; Mean Corpuscular HGB Conc 28.9 g/dL (30.0-36.0); Mean Corpuscular Hemoglobin 21.8 pg (28.0-34.0); Mean Corpuscular Volume 75.6 fl (81-99); Monocytes # 0.5 10^3/uL (0.2-0.9); Monocytes % 5.4 %; Neutrophils # 7.16 10^3/uL (1.8-7.7); Neutrophils % 73.1 %; Nucleated Red Blood Cells # 0.1 /100WBC; Nucleated Red Blood Cells % 0.9 %; Platelet Count 76 10^3/cmm (130-400); Red Blood Count 3.48 10^6/uL (4.1-5.3); Red Cell Distribution Width 25.7 % (12.1-15.1); White Blood Count 9.8 10^3/uL (4.0-10.0)
--- NOTE | 2021-10-17 12:06 | PM.PN ---
Subjective Subjective: feeling better. MOther at bedside. Rounded with RN. Pt admitted to a bit more use of alcohol, marijuana, and occasional smoking meth. Dx with bipolar, not on meds, also borderline personality disorder. Vitals/I&O/Wt Last Vital Signs Temp 98.2 F 10/17/21 10:00 Pulse 86 10/17/21 10:00 Resp 23 H 10/17/21 10:00 BP 136/83 10/17/21 10:00 Pulse Ox 97 10/17/21 10:00 10/16/21 10/17/21 10/17/21 22:59 06:59 14:59 Intake Total 550 / 800 50 / 850 100 / 100 Output Total 1300 / 1300 300 / 1600 Balance -750 / -500 -250 / -750 100 / 100 Weight last 48 hrs Weight 104.326 kg Weight 104.326 kg Physical Exam Narrative: Obese patient seen sitting upright in bed Her respiratory rate remains slightly elevated 25-30 Heart is regular slightly tachycardic no murmur auscultated lungs diminished breath sounds throughout but improved aeration today Abd: soft nontender nondistended positive bowel sounds no hepatosplenomegaly is palpable extremities: mild nonpitting pedal edema Urinary Catheter Management: Boykin: Cath Placed During This Visit: yes Reason for Continuing Indwelling Catheter: Accurate Measurement of Urinary Output in Critically Ill Patients Urinary Catheter Date of Insertion: 10/16/21 Urinary Catheter Time of Insertion: 17:44 Data : 10/17/21 11:29 10/16/21 02:24 Micro: Microbiology 10/16/21 02:20 Blood Culture - Preliminary Blood Streptococcus pneumoniae 10/16/21 02:24 Blood Culture - Preliminary Blood Streptococcus pneumoniae 10/16/21 10:20 Legionella Urinary Antigen - Final Urine Catheterized 10/16/21 10:20 Bacterial Antigens - Final Urine,Voided A&P Assessment and plan (1) Acute respiratory failure with hypoxia: Status: Acute (2) Pneumonia: Status: Acute (3) Lactic acidosis: Status: Acute (4) Diabetes mellitus, type II: Status: Acute Qualifiers: Diabetes mellitus shelter insulin use: unspecified shelter insulin use status Diabetes mellitus complication status: with other specified complication Qualified Code(s): E11.69 - Type 2 diabetes mellitus with other specified complication (5) Sepsis: Status: Acute Plan ARF due to pneumonia with sepsis. Strep pneumonia in blood cultures. Didn't have IV changed to levaquin/zyvox overnight. Now has IV and changed back to IV. Much instruction given regarding deep breathing, IS, Acapella. PT ordered, OOB to chair. Regarding psychiatric issues. Will start lexapro with shorter half life, buspar for anxiety and ativan 0.5 tid scheduled until buspar at steady state. She is clinically improved although remains on same oxygen settings. Overall pulse ox is remaining higher than yesterday. Long discussion about proper care of self. Recommend no smoking, no marijuana, no meth, no alcohol. Ideally pt could be placed in a drug rehab center if insurance/payment could be obtained. Otherwise there is a 2 year program for personality disorders when/if she becomes medically stable. I explained that the use of antidepressant and anxiolytic will be used in place of other behaviors to attempt to self medicate. Mother admits to some enabling. Attestations Medical Necessity Statement*: respiratory failure on 80% FIO2 Coding Level of Care Code Acute Die Stamper for [facility] Diagnoses Acute respiratory failure with hypoxia J96.01 Pneumonia J18.9 Lactic acidosis E87.2 Diabetes mellitus, type II E11.69 Diabetes mellitus shelter insulin use: unspecified shelter insulin use status Diabetes mellitus complication status: with other specified complication Sepsis A41.9
[2021-10-17] MEDS: escitalopram 10 mg Tablet PO (12:11)
[2021-10-17 12:15] LABS: Glucose Point of Care 99 mg/dL (70-110)
[2021-10-17 12:16] LABS: Alanine Aminotransferase 9 U/L (0-33); Albumin Level 2.4 g/dL (3.5-5.2); Alkaline Phosphatase 116 IU/L (35-105); Blood Urea Nitrogen 24 mg/dL (6-20); Calcium 8.8 mg/dL (8.5-10.5); Carbon Dioxide 15 mmol/L (22-29); Chloride 107 mmol/L (98-107); Globulin 4.4 g/dL (1.3-4.6); Glomerular Filtration Rate 175.9 mL/min (90-130); Glucose 108 mg/dL (65-115); Osmolality Calculated 285 mOsm/kg (285-295); Sodium 135 mmol/L (136-145); Total Protein 6.8 g/dL (6.6-8.7)
[2021-10-17 12:41] LABS: Anion Gap 16.5 (5-19); Aspartate Amino Transferase 37 U/L (0-32); Potassium 3.5 mmol/L (3.5-5.1)
[2021-10-17] MEDS: BuSPIRONE 10 mg Tablet PO ×2 (14:33→20:29)
[2021-10-17] MEDS: LORazepam 0.5 mg Tablet PO ×2 (14:33→20:29)
[2021-10-17] MEDS: vancomycin 1,500 MG/300 ML PIGGYBACK 200 MG IV (16:31)
[2021-10-17 17:36] LABS: Glucose Point of Care 132 mg/dL (70-110)
[2021-10-17] MEDS: piperacillin-tazobactam 3.375 GM in sodium chloride 0.9% (plus) 50 ML IV (18:08)
--- NOTE | 2021-10-17 18:15 | NUR.SHIFT ---
Shift Note Frequent safety and comfort rounds continue. Orders and/or nursing care completed as indicated. Patient monitored for response to intervention started on new medication for anxiety.. Education provided on buspar Patient understand Will continue to monitor.
[2021-10-17 20:16] LABS: Glucose Point of Care 105 mg/dL (70-110)
[2021-10-17] MEDS: acetaminophen 325 mg Tablet 650 MG PO (21:57)
[2021-10-17] MEDS: LORazepam 2 mg/mL INJ 1 mL IM (23:02)
[2021-10-18] VITALS (27 sets, daily range): BP systolic 124–166; BP diastolic 69–116; PULSE 75–101; RESP 17–53; O2SAT 85–99
[2021-10-18] MEDS: piperacillin-tazobactam 3.375 GM in sodium chloride 0.9% (plus) 50 ML IV ×3 (01:57→17:49)
[2021-10-18] MEDS: ipratropium-albuterol 3 mL Neb INHALATION ×4 (03:09→19:59)
[2021-10-18 04:33] LABS: Basophils % 0.1 %; Eosinophils # 0.2 10^3/uL (0.0-0.8); Eosinophils % 1.8 %; Hematocrit 25.8 % (37.0-47.0); Hemoglobin 7.5 g/dL (11.5-15.3); Lymphocytes % 20.1 %; Mean Corpuscular HGB Conc 29.1 g/dL (30.0-36.0); Mean Corpuscular Hemoglobin 21.5 pg (28.0-34.0); Mean Corpuscular Volume 73.9 fl (81-99); Monocytes # 0.7 10^3/uL (0.2-0.9); Monocytes % 7.2 %; Neutrophils # 6.61 10^3/uL (1.8-7.7); Neutrophils % 66.2 %; Nucleated Red Blood Cells # 0.1 /100WBC; Nucleated Red Blood Cells % 1.1 %; Platelet Count 82 10^3/cmm (130-400); Red Blood Count 3.49 10^6/uL (4.1-5.3); Red Cell Distribution Width 25.8 % (12.1-15.1)
[2021-10-18 05:00] LABS: Alanine Aminotransferase 9 U/L (0-33); Albumin Level 2.4 g/dL (3.5-5.2); Alkaline Phosphatase 134 IU/L (35-105); Blood Urea Nitrogen 16 mg/dL (6-20); Carbon Dioxide 16 mmol/L (22-29); Chloride 108 mmol/L (98-107); Glucose 122 mg/dL (65-115); Osmolality Calculated 284 mOsm/kg (285-295); Sodium 136 mmol/L (136-145); Total Bilirubin 1.5 mg/dL (0.15-1.2); Total Protein 6.4 g/dL (6.6-8.7)
[2021-10-18 05:04] LABS: Anion Gap 15.3 (5-19)
[2021-10-18 05:05] LABS: Aspartate Amino Transferase 33 U/L (0-32); Potassium 3.3 mmol/L (3.5-5.1)
[2021-10-18 05:08] LABS: Slide Review Slide Review Perform
[2021-10-18] MEDS: vancomycin 1,500 MG/300 ML PIGGYBACK 200 MG IV ×2 (05:09→16:08)
[2021-10-18 07:34] LABS: Glucose Point of Care 126 mg/dL (70-110)
[2021-10-18] MEDS: folic acid 1 mg Tablet PO (08:40)
[2021-10-18] MEDS: multivitamin therapeutic Tablet 1 TAB PO (08:40)
[2021-10-18] MEDS: lidocaine 5% Patch 1 PATCH TOPICAL ×2 (08:40→20:57)
[2021-10-18] MEDS: BuSPIRONE 10 mg Tablet PO ×3 (08:40→20:57)
[2021-10-18] MEDS: thiamine 100 mg Tablet PO (08:41)
[2021-10-18] MEDS: LORazepam 0.5 mg Tablet PO ×3 (08:41→20:57)
[2021-10-18] MEDS: escitalopram 10 mg Tablet PO (08:41)
[2021-10-18 11:12] LABS: Glucose Point of Care 169 mg/dL (70-110)
--- NOTE | 2021-10-18 11:13 | PC.NURSE ---
attempted to assist pt up in chair per pt ... o2 sats decrease also pt c/o severe discomfort legs and back...
[2021-10-18] MEDS: insulin lispro 100 unit/1 mL SUBCUT ×2 (11:30→20:57)
--- NOTE | 2021-10-18 12:47 | PM.PN ---
Subjective Subjective: Patient was seen and examined this morning, she is still short of breath, still on high supplemental oxygen requirement. Her other vitals and labs reviewed. Medications: Medication Review Details: Generic Name Dose Route Start Last Admin Trade Name Joaquin PRN Reason Stop Dose Admin Acetaminophen 650 mg 10/16/21 06:49 10/17/21 21:57 Acetaminophen 32 5 Mg Tablet PO 650 mg Q6H PRN Administration Mild/Mod Pain Or Temp >/= 101 Albuterol/Ipratrop ium 3 ml 10/16/21 09:00 10/18/21 15:05 Ipratropium-Albu terol 3 Ml Neb INHALATION 3 ml Q6H.RESPIRATORY S CH Administration Buspirone HCl 10 mg 10/17/21 15:00 10/18/21 08:40 Buspirone 10 Mg Tablet PO 10 mg TID LEILA Administration Escitalopram Oxala te 10 mg 10/17/21 11:45 10/18/21 08:41 Escitalopram 10 Mg Tablet PO 10 mg DAILY LEILA Administration Folic Acid 1 mg 10/17/21 09:00 10/18/21 08:40 Folic Acid 1 Mg Tablet PO 1 mg DAILY LEILA Administration Piperacillin Sod/T azobactam 50 mls @ 12.5 mls /hr 10/16/21 10:00 10/18/21 12:58 Sod 3.375 gm/ So dium Chloride IV Infused Q8H LEILA Infusion Protocol Vancomycin/PEG/NAD A/Lysine/Water 1,500 mg in 300 m ls @ 200 mls/hr 10/16/21 17:00 10/18/21 06:41 Vancocin IV Infused Q12H LEILA Infusion Insulin Human Lisp ro 0 unit 10/16/21 12:00 10/18/21 11:30 Insulin Lispro 1 00 Unit/1 Ml SUBCUT 2 unit WM&[id number] LEILA Administration Protocol Lidocaine 1 patch 10/16/21 09:00 10/18/21 08:40 Lidocaine 5% Pat ch TOPICAL 1 patch [id number] LEILA Administration Lorazepam 2 mg 10/16/21 19:16 10/17/21 23:02 Lorazepam 2 Mg/M l Inj 1 Ml IM 2 mg Q4H PRN Administration ALCOWD Protocol Lorazepam 0.5 mg 10/17/21 15:00 10/18/21 08:41 Lorazepam 0.5 Mg Tablet PO 0.5 mg TID LEILA Administration Multivitamins Ther apeutic 1 tab 10/17/21 09:00 10/18/21 08:40 Multivitamin The rapeutic Tablet PO 1 tab DAILY LEILA Administration Pantoprazole Sodiu m 40 mg 10/16/21 08:00 10/17/21 09:46 Pantoprazole 40 Mg Sdv IVP 40 mg Q24H LEILA Administration Thiamine Mononitra te 100 mg 10/17/21 09:00 10/18/21 08:41 Thiamine 100 Mg Tablet PO 100 mg DAILY LEILA Administration Vitals/I&O/Wt Last Vital Signs Temp 98.2 F 10/17/21 10:00 Pulse 90 10/18/21 12:00 Resp 35 H 10/18/21 12:00 BP 141/92 10/18/21 12:00 Pulse Ox 91 10/18/21 12:00 10/17/21 10/18/21 10/18/21 22:59 06:59 14:59 Intake Total 1570 / 2520 750 / 3270 700 / 700 Output Total 1675 / 1675 400 / 2075 300 / 300 Balance -105 / 845 350 / 1195 400 / 400 Weight last 48 hrs Weight 103.873 kg Weight 104.326 kg Physical Exam Const: COMMON NORMALS: patient oriented x3 HENMT: COMMON NORMALS: normocephalic and atraumatic HEAD & SCALP: normocephalic and atraumatic Chest: CHEST: Yes Symmetrical chest wall rise Resp: EFFORT & INSPECTION: Yes symmetric chest movement OTHER: Diminished air entry bilaterally, tachypneic Cardio: COMMON NORMALS: regular rate, regular rhythm, S1 normal heart sound present, S2 normal heart sound present, No gallops present (Cardio), No murmurs present (Cardio), No rub (Cardio) and Peripheral pulses 2+ throughout RATE: regular rate RHYTHM: regular rhythm HEART SOUNDS: S1 normal heart sound present and S2 normal heart sound present PERIPHERAL PULSES: Peripheral pulses 2+ throughout GI: COMMON NORMALS: Normal to inspection, nondistended, normoactive bowel sounds present, Soft to palpation, non-tender, No hepatosplenomegaly present and no masses AUSCULTATION: Yes normoactive bowel sounds PALPATION: Yes Soft to palpation and Yes No hepatosplenomegaly present RECTAL EXAM: deferred Extremity: COMMON NORMALS: no clubbing, cyanosis or edema and no pedal edema Neuro: COMMON NORMALS: patient oriented x3 Urinary Catheter Management: Boykin: Cath Placed During This Visit: yes Reason for Continuing Indwelling Catheter: Accurate Measurement of Urinary Output in Critically Ill Patients Urinary Catheter Date of Insertion: 10/16/21 Urinary Catheter Time of Insertion: 17:44 Data : 10/18/21 04:13 10/18/21 04:13 Micro: Microbiology 10/16/21 02:20 Blood Culture - Final Blood Streptococcus pneumoniae 10/16/21 02:24 Blood Culture - Final Blood Streptococcus pneumoniae A&P Assessment and plan (1) Acute respiratory failure with hypoxia: Status: Acute (2) Pneumonia: Status: Acute (3) Lactic acidosis: Status: Acute (4) Diabetes mellitus, type II: Status: Acute Qualifiers: Diabetes mellitus complication status: with other specified complication Diabetes mellitus hydraulic jack adjuster insulin use: unspecified hydraulic jack adjuster insulin use status Qualified Code(s): E11.69 - Type 2 diabetes mellitus with other specified complication (5) Sepsis: Status: Acute Plan 41-year-old lady with several recent hospitalizations, with lumbar epidural abscess, lumbar discitis, osteomyelitis, ESBL UTI, with also history of portal hypertension, hepatic encephalopathy with hyperammonemia, past history of polysubstance abuse and IV drug abuse, which she states is currently in remission, DM2, HTN, hypothyroidism, CHF, ARTURO, presented with chief complaint of shortness of breath, productive cough and hemoptysis which she states have started after a fall 2 days ago on her porch at which time she fell down on the right side of her chest with resultant pain, and subsequently the respiratory symptoms. Assessment #Acute hypoxic respiratory failure secondary to pneumonia: CT chest with contrast: Bilateral patchy groundglass opacities, seen in the upper hemithoraces with consolidation seen in the right lower lobe and right middle lobe as well as within the lingula. Blood culture: Streptococcus pneumoniae 4/4 bottles Follow repeat blood culture Urine Legionella antigen: Negative Bacterial antigen panel: Negative Covid PCR negative Sputum Gram stain and culture Currently she is on vancomycin and Zosyn. Continue incentive spirometer flutter valve other conservative respiratory support measures. Continue heated high flow oxygen through nasal cannula. Titrate to maintain SPO2 greater than 95. #Sepsis secondary to pneumonia: Patient presented with tachycardia, elevated lactic acidosis, positive blood culture, leukopenia, required IV fluid resuscitation. Plan as above #Pancytopenia : Likely secondary to alcohol abuse: #Hemoptysis: Continue to continue to monitor CBC No fresh episode during hospital stay Avoid anticoagulation #Thrombocytopenia: Secondary to splenomegaly 2/2 portal hypertension secondary to alcohol abuse Currently no active bleeding Continue to monitor platelet count #Hyperbilirubinemia: Secondary to alcohol abuse: Unlikely obstructive etiology: #History of hepatitis C: She will need GI follow-up as an outpatient. # Regarding psychiatric issues. Will start lexapro with shorter half life, buspar for anxiety and ativan 0.5 tid scheduled until buspar at steady state. # DM : On carb consistent diet SSI FSG #CODE STATUS: Full code #DVT PPX : ON SCDS #Disposition: Home Attestations Medical Necessity Statement*: Patient needs to be in the hospital for management of pneumonia Time Spent in Patient Care: Greater than 35 minutes (>than 50% of time spent in counselling and/or direct pt care on unit). 45 Critical Care Time: The high probability of a clinically significant, sudden or life threatening deterioration of the patient's [] system(s) required my full and direct attention, intervention and personal management. The critical care time is as shown. This time is in addition to time spent performing any reported procedures but includes the following: [x] Data and vital sign review and interpretation [x] Patient assessment, examination and intervention [x] Documentation [x] Medication orders and management Coding Level of Care Code Acute Dog Trainer for [facility] Fwd Exam Detailed Diagnoses Acute respiratory failure with hypoxia J96.01 Pneumonia J18.9 Lactic acidosis E87.2 Diabetes mellitus, type II E11.69 Diabetes mellitus complication status: with other specified complication Diabetes mellitus [facility] insulin use: unspecified [facility] insulin use status Sepsis A41.9
[2021-10-18] MEDS: lanolin oint 7 gm 1 APPLIC TOPICAL (16:32)
[2021-10-18 17:58] LABS: Glucose Point of Care 131 mg/dL (70-110)
[2021-10-18 20:54] LABS: Glucose Point of Care 178 mg/dL (70-110)
[2021-10-19] VITALS (27 sets, daily range): BP systolic 143–190; BP diastolic 86–109; PULSE 79–100; RESP 17–53; TEMP 36.8–36.9; O2SAT 81–100; BMI 33.7
[2021-10-19] MEDS: piperacillin-tazobactam 3.375 GM in sodium chloride 0.9% (plus) 50 ML IV ×3 (01:52→17:21)
[2021-10-19] MEDS: ipratropium-albuterol 3 mL Neb INHALATION ×4 (03:13→20:03)
[2021-10-19] MEDS: vancomycin 1,500 MG/300 ML PIGGYBACK 200 MG IV (06:10)
[2021-10-19] MEDS: LORazepam 2 mg/mL INJ 1 mL IM (07:10)
--- NOTE | 2021-10-19 07:14 | PC.NURSE ---
Morning Assessment: Patient yelling and thrashing, HHF in floor upon entering room. Patients oxygen in mid 70's, HHF reapplied and patient coached on breathing through nose to no avail. Non-rebreather mask applied for supplementation. Patients oxygen returned to low 90's. Patient continued yelling and stated she was So anxious. Blood pressure 172/93. respirations in mid 30's. 2mg IM Ativan given. Patient continues to appear agitated at this time. Will continue to monitor for further need of interventions.
[2021-10-19 07:30] LABS: Glucose Point of Care 171 mg/dL (70-110)
[2021-10-19] MEDS: insulin lispro 100 unit/1 mL SUBCUT ×2 (07:40→12:59)
[2021-10-19] MEDS: pantoprazole 40 mg SDV IVP (07:40)
[2021-10-19] MEDS: thiamine 100 mg Tablet PO (08:51)
[2021-10-19] MEDS: multivitamin therapeutic Tablet 1 TAB PO (08:51)
[2021-10-19] MEDS: folic acid 1 mg Tablet PO (08:51)
[2021-10-19] MEDS: BuSPIRONE 10 mg Tablet PO ×3 (08:52→20:13)
[2021-10-19] MEDS: escitalopram 10 mg Tablet PO (08:52)
[2021-10-19] MEDS: LORazepam 0.5 mg Tablet PO ×3 (08:52→20:13)
[2021-10-19] MEDS: lidocaine 5% Patch 1 PATCH TOPICAL ×2 (08:57→20:11)
[2021-10-19 08:58] LABS: Basophils % 0.1 %; Eosinophils # 0.1 10^3/uL (0.0-0.8); Hematocrit 26.3 % (37.0-47.0); Lymphocytes # 1.5 10^3/uL (0.8-4.8); Lymphocytes % 14.1 %; Mean Corpuscular HGB Conc 30.4 g/dL (30.0-36.0); Mean Corpuscular Hemoglobin 22.2 pg (28.0-34.0); Mean Corpuscular Volume 73.1 fl (81-99); Monocytes # 0.7 10^3/uL (0.2-0.9); Monocytes % 6.5 %; Neutrophils # 7.79 10^3/uL (1.8-7.7); Nucleated Red Blood Cells # 0.1 /100WBC; Nucleated Red Blood Cells % 0.5 %; Platelet Count 94 10^3/cmm (130-400); Red Cell Distribution Width 25.9 % (12.1-15.1); White Blood Count 10.7 10^3/uL (4.0-10.0)
[2021-10-19 09:16] LABS: Alanine Aminotransferase 11 U/L (0-33); Albumin Level 2.9 g/dL (3.5-5.2); Alkaline Phosphatase 190 IU/L (35-105); Aspartate Amino Transferase 36 U/L (0-32); Blood Urea Nitrogen 11 mg/dL (6-20); Calcium 8.5 mg/dL (8.5-10.5); Carbon Dioxide 17 mmol/L (22-29); Chloride 102 mmol/L (98-107); Glomerular Filtration Rate 175.9 mL/min (90-130); Glucose 146 mg/dL (65-115); Osmolality Calculated 274 mOsm/kg (285-295); Sodium 131 mmol/L (136-145); Total Bilirubin 1.4 mg/dL (0.15-1.2); Total Protein 5.9 g/dL (6.6-8.7)
[2021-10-19 09:26] LABS: Neutrophils % 78.3 %; Slide Review Slide Review Perform
--- NOTE | 2021-10-19 09:57 | PC.CHAP ---
Pastoral Care Encounter/Spiritual Assessment Type of Contact [] Declined last pattern grader visit [] Patient/Family/Request visit [] Outpatient visit [] Follow-up visit [] Physician referral [] Code/Alert [x] Routine visit [] Staff referral [] Actively dying [] Patient sleeping [] Family support [] [] Out of room [] Palliative care [] [] Receiving care in room [] Pre-surgical visit [] Trauma [] Long length of stay [x] ICU visit [x] Other: ox... physical therapy Relational/Emotional Strength [] Patient feels connected with others/family/visitors/staff [] Distress [] Loneliness/isolation [] Abandonment Spirituality of Patient [] Person of Connie [] Attends Cheondoism of their Connie [] Believes in Prayer [] Reads Bible or Alevism materials [] There are Spiritual issues to be addressed Cotton Sampler Interventions [x] Prayer [] Active listening [] Non-anxious presence [] Spiritual/emotional support [] Crisis/trauma care [] Spiritual counseling [] Bereavement support [] Provided bereavement packet [] Provided Bible/devotional materials [] Provided toy/stuffed animal, coloring book to patient or family member [] Provided Communion [] Anointing/[place] [] Salvation [x] Completed spiritual assessment [] Other: Impact on Illness or Injury [] Angry [] Fearful [] Anxious [] Often cries [] Exhaustion [] Unable to work [] Unable to attend druze [] Unable to walk/stand [] Unable to read [] Unable to drive [] Unable to eat/drink [] Unable to sleep [] Unable to be with family [] Patient intubated [] Other: Summary Time spent with patient
[2021-10-19] MEDS: acetaminophen 325 mg Tablet 650 MG PO (09:59)
[2021-10-19] MEDS: oxyCODONE-APAP 5-325 mg Tablet 1 TAB PO ×2 (10:33→20:12)
--- NOTE | 2021-10-19 11:09 | P.PN_ITS ---
Subjective Subjective: Patient was seen and examined this morning, she was complaining of right rib cage pain, Supplemental oxygen requirement is going down, Medications: Medication Review Details: Generic Name Dose Route Start Last Admin Trade Name Joaquin PRN Reason Stop Dose Admin Acetaminophen 650 mg 10/16/21 06:49 10/17/21 21:57 Acetaminophen 32 5 Mg Tablet PO 650 mg Q6H PRN Administration Mild/Mod Pain Or Temp >/= 101 Albuterol/Ipratrop ium 3 ml 10/16/21 09:00 10/18/21 15:05 Ipratropium-Albu terol 3 Ml Neb INHALATION 3 ml Q6H.RESPIRATORY S CH Administration Buspirone HCl 10 mg 10/17/21 15:00 10/18/21 08:40 Buspirone 10 Mg Tablet PO 10 mg TID LEILA Administration Escitalopram Oxala te 10 mg 10/17/21 11:45 10/18/21 08:41 Escitalopram 10 Mg Tablet PO 10 mg DAILY LEILA Administration Folic Acid 1 mg 10/17/21 09:00 10/18/21 08:40 Folic Acid 1 Mg Tablet PO 1 mg DAILY LEILA Administration Piperacillin Sod/T azobactam 50 mls @ 12.5 mls /hr 10/16/21 10:00 10/18/21 12:58 Sod 3.375 gm/ So dium Chloride IV Infused Q8H LEILA Infusion Protocol Vancomycin/PEG/NAD A/Lysine/Water 1,500 mg in 300 m ls @ 200 mls/hr 10/16/21 17:00 10/18/21 06:41 Vancocin IV Infused Q12H LEILA Infusion Insulin Human Lisp ro 0 unit 10/16/21 12:00 10/18/21 11:30 Insulin Lispro 1 00 Unit/1 Ml SUBCUT 2 unit WM&BEDTIME LEILA Administration Protocol Lidocaine 1 patch 10/16/21 09:00 10/18/21 08:40 Lidocaine 5% Pat ch TOPICAL 1 patch [id number] LEILA Administration Lorazepam 2 mg 10/16/21 19:16 10/17/21 23:02 Lorazepam 2 Mg/M l Inj 1 Ml IM 2 mg Q4H PRN Administration ALCOWD Protocol Lorazepam 0.5 mg 10/17/21 15:00 10/18/21 08:41 Lorazepam 0.5 Mg Tablet PO 0.5 mg TID LEILA Administration Multivitamins Ther apeutic 1 tab 10/17/21 09:00 10/18/21 08:40 Multivitamin The rapeutic Tablet PO 1 tab DAILY LEILA Administration Pantoprazole Sodiu m 40 mg 10/16/21 08:00 10/17/21 09:46 Pantoprazole 40 Mg Sdv IVP 40 mg Q24H LEILA Administration Thiamine Mononitra te 100 mg 10/17/21 09:00 10/18/21 08:41 Thiamine 100 Mg Tablet PO 100 mg DAILY LEILA Administration Vitals/I&O/Wt Last Vital Signs Temp 98.2 F 10/19/21 00:00 Pulse 93 10/19/21 08:34 Resp 23 H 10/19/21 10:33 BP 167/100 10/19/21 00:00 Pulse Ox 96 10/19/21 10:33 10/18/21 10/19/21 10/19/21 22:59 06:59 14:59 Intake Total 1150 / 1900 150 / 2050 300 / 300 Output Total 2600 / 2900 1025 / 3925 Balance -1450 / -1000 -875 / -1875 300 / 300 Weight last 48 hrs Weight 103.873 kg Weight 103.873 kg Physical Exam Const: COMMON NORMALS: patient oriented x3 HENMT: COMMON NORMALS: normocephalic and atraumatic HEAD & SCALP: normocephalic and atraumatic Chest: CHEST: Yes Symmetrical chest wall rise Resp: EFFORT & INSPECTION: Yes symmetric chest movement OTHER: Diminished air entry bilaterally, tachypneic Cardio: COMMON NORMALS: regular rate, regular rhythm, S1 normal heart sound present, S2 normal heart sound present, No gallops present (Cardio), No murmurs present (Cardio), No rub (Cardio) and Peripheral pulses 2+ throughout RATE: regular rate RHYTHM: regular rhythm HEART SOUNDS: S1 normal heart sound present and S2 normal heart sound present PERIPHERAL PULSES: Peripheral pulses 2+ throughout GI: COMMON NORMALS: Normal to inspection, nondistended, normoactive bowel sounds present, Soft to palpation, non-tender, No hepatosplenomegaly present and no masses AUSCULTATION: Yes normoactive bowel sounds PALPATION: Yes Soft to palpation and Yes No hepatosplenomegaly present RECTAL EXAM: deferred Extremity: COMMON NORMALS: no clubbing, cyanosis or edema and no pedal edema Neuro: COMMON NORMALS: patient oriented x3 Urinary Catheter Management: Boykin: Cath Placed During This Visit: yes Reason for Continuing Indwelling Catheter: Accurate Measurement of Urinary Output in Critically Ill Patients Urinary Catheter Date of Insertion: 10/16/21 Urinary Catheter Time of Insertion: 17:44 Data : 10/20/21 08:10 10/19/21 08:18 Micro: Microbiology 10/19/21 08:18 Blood Culture - Preliminary Blood SPECIMEN COLLECTED 10/19/21 04:10 Blood Culture - Preliminary Blood SPECIMEN COLLECTED 10/16/21 02:20 Blood Culture - Final Blood Streptococcus pneumoniae 10/16/21 02:24 Blood Culture - Final Blood Streptococcus pneumoniae A&P Assessment and plan (1) Acute respiratory failure with hypoxia: Status: Acute (2) Pneumonia: Status: Acute (3) Lactic acidosis: Status: Acute (4) Diabetes mellitus, type II: Status: Acute Qualifiers: Diabetes mellitus complication status: with other specified complication Diabetes mellitus halfway insulin use: unspecified halfway insulin use status Qualified Code(s): E11.69 - Type 2 diabetes mellitus with other specified complication (5) Sepsis: Status: Acute Plan 41-year-old lady with several recent hospitalizations, with lumbar epidural abscess, lumbar discitis, osteomyelitis, ESBL UTI, with also history of portal hypertension, hepatic encephalopathy with hyperammonemia, past history of polysubstance abuse and IV drug abuse, which she states is currently in remission, DM2, HTN, hypothyroidism, CHF, ARTURO, presented with chief complaint of shortness of breath, productive cough and hemoptysis which she states have started after a fall 2 days ago on her porch at which time she fell down on the right side of her chest with resultant pain, and subsequently the respiratory symptoms. Assessment #Acute hypoxic respiratory failure secondary to pneumonia: CT chest with contrast: Bilateral patchy groundglass opacities, seen in the upper hemithoraces with consolidation seen in the right lower lobe and right middle lobe as well as within the lingula. Blood culture: Streptococcus pneumoniae 11/02 bottles Follow repeat blood culture:Negative Urine Legionella antigen: Negative Bacterial antigen panel: Negative Covid PCR negative Sputum Gram stain and culture vancomycin was discontinued on 10/19 Currently she is on Zosyn. Continue incentive spirometer flutter valve other conservative respiratory support measures. Continue heated high flow oxygen through nasal cannula. Titrate to maintain SPO2 greater than 95. #Sepsis secondary to pneumonia: Patient presented with tachycardia, elevated lactic acidosis, positive blood culture, leukopenia, required IV fluid resuscitation. Plan as above #Pancytopenia : Likely secondary to alcohol abuse: #Hypothyroidism: Continue levothyroxine 100 mcg p.o. daily #Hemoptysis: Continue to continue to monitor CBC No fresh episode during hospital stay Avoid anticoagulation #Thrombocytopenia: Secondary to splenomegaly 2/2 portal hypertension secondary to alcohol abuse Currently no active bleeding Continue to monitor platelet count #Hyperbilirubinemia: Secondary to alcohol abuse: Unlikely obstructive etiology: #History of hepatitis C: She will need GI follow-up as an outpatient. #Hypokalemia: Monitor serum potassium and replace accordingly # Regarding psychiatric issues. Will start lexapro with shorter half life, buspar for anxiety and ativan 0.5 tid scheduled until buspar at steady state. 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
[2021-10-19 11:14] LABS: Glucose Point of Care 164 mg/dL (70-110)
[2021-10-19] MEDS: lidocaine 1% 5 ML in potassium chloride premix 100 ML 25 ML IV (13:00)
[2021-10-19] MEDS: amlodipine 5 mg Tablet PO (16:22)
[2021-10-19] MEDS: LORazepam 2 mg/mL INJ 1 mL 1 MG IVP (16:23)
[2021-10-19 17:13] LABS: Glucose Point of Care 127 mg/dL (70-110)
[2021-10-19] MEDS: cyclobenzaprine 10 mg Tablet 5 MG PO (18:11)
[2021-10-19 20:07] LABS: Glucose Point of Care 134 mg/dL (70-110)
[2021-10-20] VITALS (30 sets, daily range): BP systolic 149–186; BP diastolic 79–119; PULSE 80–102; RESP 18–47; TEMP 37.6; O2SAT 93–97; BMI 34.8
[2021-10-20] MEDS: LORazepam 2 mg/mL INJ 1 mL 1 MG IVP (00:44)
[2021-10-20] MEDS: piperacillin-tazobactam 3.375 GM in sodium chloride 0.9% (plus) 50 ML IV ×3 (02:52→17:36)
[2021-10-20] MEDS: ipratropium-albuterol 3 mL Neb INHALATION ×4 (03:21→20:01)
[2021-10-20] MEDS: oxyCODONE-APAP 5-325 mg Tablet 1 TAB PO ×3 (06:32→20:21)
[2021-10-20 08:20] LABS: Hematocrit 26.1 % (37.0-47.0); Hemoglobin 7.7 g/dL (11.5-15.3); Mean Corpuscular HGB Conc 29.5 g/dL (30.0-36.0); Mean Corpuscular Hemoglobin 21.6 pg (28.0-34.0); Mean Corpuscular Volume 73.3 fl (81-99); Mean Platelet Volume 9.5 fL (7.4-10.4); Platelet Count 77 10^3/cmm (130-400); Red Blood Count 3.56 10^6/uL (4.1-5.3); Red Cell Distribution Width 25.7 % (12.1-15.1); White Blood Count 7.6 10^3/uL (4.0-10.0)
[2021-10-20 08:42] LABS: Absolute Neutrophil 5.3 10^3/cmm (1.4-6.5); Absolute Segmented Neutrophil 4.2 10/cmm (1.6-7.1); Anisocytosis 2+; Band Neutrophils Absolute 1.1 10^3/cmm (0.0-1.2); Eosinophils 1 %; Hypochromasia 2+; Lymphocytes 24 %; Lymphocytes Absolute 1.8 10^3/cmm (1.2-3.4); Monocytes Absolute 0.3 10^3/cmm (0.1-0.6); Platelet Estimate Decreased (Normal); Polychromasia 1+; Segmented Neutrophils 55 %; Total Cells Counted 100 (0-100)
[2021-10-20 08:43] LABS: Poikilocytosis 1+; Schistocytes Trace
[2021-10-20 08:44] LABS: Blood Urea Nitrogen 12 mg/dL (6-20); Calcium 8.7 mg/dL (8.5-10.5); Carbon Dioxide 17 mmol/L (22-29); Chloride 106 mmol/L (98-107); Glomerular Filtration Rate 175.9 mL/min (90-130); Glucose 121 mg/dL (65-115); Osmolality Calculated 279 mOsm/kg (285-295); Sodium 134 mmol/L (136-145)
[2021-10-20] MEDS: folic acid 1 mg Tablet PO (09:03)
[2021-10-20] MEDS: levothyroxine 100 mcg Tablet PO (09:03)
[2021-10-20] MEDS: BuSPIRONE 10 mg Tablet PO ×3 (09:03→20:21)
[2021-10-20] MEDS: thiamine 100 mg Tablet PO (09:03)
[2021-10-20] MEDS: multivitamin therapeutic Tablet 1 TAB PO (09:03)
[2021-10-20] MEDS: escitalopram 10 mg Tablet PO (09:03)
[2021-10-20] MEDS: LORazepam 0.5 mg Tablet PO ×3 (09:03→20:21)
[2021-10-20] MEDS: pantoprazole 40 mg SDV IVP (09:03)
[2021-10-20] MEDS: potassium chloride ER 20 mEq Tablet 40 MEQ PO (09:17)
[2021-10-20] MEDS: lidocaine 5% Patch 1 PATCH TOPICAL (10:54)
[2021-10-20] MEDS: insulin lispro 100 unit/1 mL SUBCUT (13:00)
[2021-10-20 13:04] LABS: Glucose Point of Care 125 mg/dL (70-110)
[2021-10-20 13:26] LABS: Glucose Point of Care 187 mg/dL (70-110)
--- NOTE | 2021-10-20 13:41 | PC.NURSE ---
NUrse attempted to assist patient up to a chair, but patient refuses. Nurse attempted to get patient to sit on the side of the bed, but patient also refuses. Nurse has explained the importance of repositioning, ambulation, and sitting up to the chair.
[2021-10-20] MEDS: cyclobenzaprine 10 mg Tablet 5 MG PO (14:02)
--- NOTE | 2021-10-20 14:06 | XRR_ITS ---
PROCEDURE INFORMATION: Exam: XR Chest Exam date and time: 10/20/2021 2:42 PM Age: 41 years old Clinical indication: Condition or disease; Lung condition and disease; Pneumonia TECHNIQUE: Imaging protocol: XR of the chest. Views: 1 view. COMPARISON: CR (CHEST, ) 10/16/2021 1:25 AM, CTA chest 10/16/2021 FINDINGS: Lungs: Hypoinflated lungs. Some residual opacities noted in the right mid lung and left lower lungs. Pleural spaces: Unremarkable. No pleural effusion. No pneumothorax. Heart/Mediastinum: Unremarkable. No cardiomegaly. Bones/joints: Visualized osseous structures are intact. XR/XR chest 1V portable [id number] IMPRESSION: Some residual opacities are noted within the right mid and left lower lungs.
--- NOTE | 2021-10-20 14:13 | P.PN_ITS ---
Subjective Subjective: Patient was seen and examined this morning, she has right rib cage pain on inspiration likely pleuritic, Supplemental oxygen requirement has significantly gone down,currently she is saturating well on 4-5Ls oxygen Via NC. Xray chest down today has shown improvement in B/L lung rolle Infiltrates. Medications: Medication Review Details: Generic Name Dose Route Start Last Admin Trade Name Freq PRN Reason Stop Dose Admin Acetaminophen 650 mg 10/16/21 06:49 10/17/21 21:57 Acetaminophen 32 5 Mg Tablet PO 650 mg Q6H PRN Administration Mild/Mod Pain Or Temp >/= 101 Albuterol/Ipratrop ium 3 ml 10/16/21 09:00 10/18/21 15:05 Ipratropium-Albu terol 3 Ml Neb INHALATION 3 ml Q6H.RESPIRATORY S CH Administration Buspirone HCl 10 mg 10/17/21 15:00 10/18/21 08:40 Buspirone 10 Mg Tablet PO 10 mg TID LEILA Administration Escitalopram Oxala te 10 mg 10/17/21 11:45 10/18/21 08:41 Escitalopram 10 Mg Tablet PO 10 mg DAILY LEILA Administration Folic Acid 1 mg 10/17/21 09:00 10/18/21 08:40 Folic Acid 1 Mg Tablet PO 1 mg DAILY LEILA Administration Piperacillin Sod/T azobactam 50 mls @ 12.5 mls /hr 10/16/21 10:00 10/18/21 12:58 Sod 3.375 gm/ So dium Chloride IV Infused Q8H LEILA Infusion Protocol Vancomycin/PEG/NAD A/Lysine/Water 1,500 mg in 300 m ls @ 200 mls/hr 10/16/21 17:00 10/18/21 06:41 Vancocin IV Infused Q12H LEILA Infusion Insulin Human Lisp ro 0 unit 10/16/21 12:00 10/18/21 11:30 Insulin Lispro 1 00 Unit/1 Ml SUBCUT 2 unit WM&BEDTIME LEILA Administration Protocol Lidocaine 1 patch 10/16/21 09:00 10/18/21 08:40 Lidocaine 5% Pat ch TOPICAL 1 patch [id number] LEILA Administration Lorazepam 2 mg 10/16/21 19:16 10/17/21 23:02 Lorazepam 2 Mg/M l Inj 1 Ml IM 2 mg Q4H PRN Administration ALCOWD Protocol Lorazepam 0.5 mg 10/17/21 15:00 10/18/21 08:41 Lorazepam 0.5 Mg Tablet PO 0.5 mg TID LEILA Administration Multivitamins Ther apeutic 1 tab 10/17/21 09:00 10/18/21 08:40 Multivitamin The rapeutic Tablet PO 1 tab DAILY LEILA Administration Pantoprazole Sodiu m 40 mg 10/16/21 08:00 10/17/21 09:46 Pantoprazole 40 Mg Sdv IVP 40 mg Q24H LEILA Administration Thiamine Mononitra te 100 mg 10/17/21 09:00 10/18/21 08:41 Thiamine 100 Mg Tablet PO 100 mg DAILY LEILA Administration Vitals/I&O/Wt Last Vital Signs Temp 98.4 F 10/19/21 07:30 Pulse 85 10/20/21 08:50 Resp 28 H 10/20/21 12:54 BP 149/79 10/20/21 05:00 Pulse Ox 94 10/20/21 12:54 10/19/21 10/20/21 10/20/21 22:59 06:59 14:59 Intake Total 977 / 1771 50 / 1821 Output Total 850 / 1550 900 / 2450 1000 / 1000 Balance 127 / 221 -850 / -629 -1000 / -1000 Weight last 48 hrs Weight 107.048 kg Weight 103.873 kg Physical Exam Const: COMMON NORMALS: patient oriented x3 HENMT: COMMON NORMALS: normocephalic and atraumatic HEAD & SCALP: normocephalic and atraumatic Chest: CHEST: Yes Symmetrical chest wall rise Resp: EFFORT & INSPECTION: Yes symmetric chest movement OTHER: Diminished air entry bilaterally, tachypneic Cardio: COMMON NORMALS: regular rate, regular rhythm, S1 normal heart sound present, S2 normal heart sound present, No gallops present (Cardio), No murmurs present (Cardio), No rub (Cardio) and Peripheral pulses 2+ throughout RATE: regular rate RHYTHM: regular rhythm HEART SOUNDS: S1 normal heart sound present and S2 normal heart sound present PERIPHERAL PULSES: Peripheral pulses 2+ throughout GI: COMMON NORMALS: Normal to inspection, nondistended, normoactive bowel sounds present, Soft to palpation, non-tender, No hepatosplenomegaly present and no masses AUSCULTATION: Yes normoactive bowel sounds PALPATION: Yes Soft to palpation and Yes No hepatosplenomegaly present RECTAL EXAM: deferred Extremity: COMMON NORMALS: no clubbing, cyanosis or edema and no pedal edema Neuro: COMMON NORMALS: patient oriented x3 Urinary Catheter Management: Boykin: Cath Placed During This Visit: yes Reason for Continuing Indwelling Catheter: Accurate Measurement of Urinary Output in Critically Ill Patients Urinary Catheter Date of Insertion: 10/16/21 Urinary Catheter Time of Insertion: 17:44 Data : 10/20/21 08:10 10/20/21 08:10 Micro: Microbiology 10/19/21 08:18 Blood Culture - Preliminary Blood NEGATIVE TO DATE 10/19/21 04:10 Blood Culture - Preliminary Blood NEGATIVE TO DATE A&P Assessment and plan (1) Acute respiratory failure with hypoxia: Status: Acute (2) Pneumonia: Status: Acute (3) Lactic acidosis: Status: Acute (4) Diabetes mellitus, type II: Status: Acute Qualifiers: Diabetes mellitus complication status: with other specified complication Diabetes mellitus residential insulin use: unspecified residential insulin use status Qualified Code(s): E11.69 - Type 2 diabetes mellitus with other specified complication (5) Sepsis: Status: Acute Plan 41-year-old lady with several recent hospitalizations, with lumbar epidural abscess, lumbar discitis, osteomyelitis, ESBL UTI, with also history of portal hypertension, hepatic encephalopathy with hyperammonemia, past history of polysubstance abuse and IV drug abuse, which she states is currently in remission, DM2, HTN, hypothyroidism, CHF, ARTURO, presented with chief complaint of shortness of breath, productive cough and hemoptysis which she states have started after a fall 2 days ago on her porch at which time she fell down on the right side of her chest with resultant pain, and subsequently the respiratory symptoms. Assessment #Acute hypoxic respiratory failure secondary to pneumonia: CT chest with contrast: Bilateral patchy groundglass opacities, seen in the upper hemithoraces with consolidation seen in the right lower lobe and right middle lobe as well as within the lingula. Blood culture: Streptococcus pneumoniae / bottles Follow repeat blood culture:Negative Urine Legionella antigen: Negative Bacterial antigen panel: Negative Covid PCR negative Sputum Gram stain and culture vancomycin was discontinued on 10/19 Currently she is on Zosyn. Continue incentive spirometer flutter valve other conservative respiratory support measures. Continue heated high flow oxygen through nasal cannula. Titrate to maintain SPO2 greater than 95. #Sepsis secondary to pneumonia: Patient presented with tachycardia, elevated lactic acidosis, positive blood culture, leukopenia, required IV fluid resuscitation. Plan as above #Pancytopenia : Likely secondary to alcohol abuse: #Hypothyroidism: Continue levothyroxine 100 mcg p.o. daily #Hemoptysis: Continue to continue to monitor CBC No fresh episode during hospital stay Avoid anticoagulation #Thrombocytopenia: Secondary to splenomegaly 2/2 portal hypertension secondary to alcohol abuse Currently no active bleeding Continue to monitor platelet count #Hyperbilirubinemia: Secondary to alcohol abuse: Unlikely obstructive etiology: #History of hepatitis C: She will need GI follow-up as an outpatient. #Hypokalemia: Monitor serum potassium and replace accordingly # Regarding psychiatric issues. Will start lexapro with shorter half life, buspar for anxiety and ativan 0.5 tid scheduled until buspar at steady state. # DM : On carb consistent diet SSI FSG #CODE STATUS: Full code #DVT PPX : ON SCDS #Disposition: Home Attestations Medical Necessity Statement*: Patient needs to b e in the hospital for management of pneumonia Time Spent in Patient Care: Greater than 35 minutes Critical Care Time: The high probability of a clinically significant, sudden or life threatening deterioration of the patient's [] system(s) required my full and direct attention, intervention and personal management. The critical care time is as shown. This time is in addition to time spent performing any reported procedures but includes the following: [x] Data and vital sign review and interpretation [x] Patient assessment, examination and intervention [x] Documentation [x] Medication orders and management Critical Care Time (min): 45 Coding Level of Care Code Acute Sales Support Coordinator for [facility] Fwd Exam Detailed Diagnoses Acute respiratory failure with hypoxia J96.01 Pneumonia J18.9 Lactic acidosis E87.2 Diabetes mellitus, type II E11.69 Diabetes mellitus complication status: with other specified complication Diabetes mellitus residential insulin use: unspecified continuous churn buttermaker insulin use status Sepsis A41.9
[2021-10-20 16:58] LABS: Glucose Point of Care 138 mg/dL (70-110)
--- NOTE | 2021-10-20 20:23 | PC.NURSE ---
Lidocaine Patch Removed lidocaine patch from the right ribs for 12 hour rest period.
[2021-10-20 20:36] LABS: Glucose Point of Care 120 mg/dL (70-110)
[2021-10-21] VITALS (32 sets, daily range): BP systolic 124–182; BP diastolic 78–112; PULSE 81–118; RESP 16–48; TEMP 37.2–37.3; O2SAT 88–100
[2021-10-21] MEDS: piperacillin-tazobactam 3.375 GM in sodium chloride 0.9% (plus) 50 ML IV ×3 (02:25→17:36)
[2021-10-21] MEDS: oxyCODONE-APAP 5-325 mg Tablet 1 TAB PO ×3 (02:30→20:57)
[2021-10-21] MEDS: ipratropium-albuterol 3 mL Neb INHALATION ×4 (02:49→20:20)
[2021-10-21 05:11] LABS: Basophils % 0.5 %; Eosinophils # 0.2 10^3/uL (0.0-0.8); Eosinophils % 3.1 %; Hematocrit 24.2 % (37.0-47.0); Hemoglobin 7.2 g/dL (11.5-15.3); Lymphocytes # 1.6 10^3/uL (0.8-4.8); Lymphocytes % 25.7 %; Mean Corpuscular HGB Conc 29.8 g/dL (30.0-36.0); Mean Corpuscular Volume 73.8 fl (81-99); Mean Platelet Volume 9.5 fL (7.4-10.4); Monocytes # 0.5 10^3/uL (0.2-0.9); Monocytes % 8.3 %; Neutrophils # 3.54 10^3/uL (1.8-7.7); Neutrophils % 57.8 %; Nucleated Red Blood Cells % 0.3 %; Platelet Count 79 10^3/cmm (130-400); Red Blood Count 3.28 10^6/uL (4.1-5.3); Red Cell Distribution Width 25.8 % (12.1-15.1); White Blood Count 6.1 10^3/uL (4.0-10.0)
[2021-10-21 05:30] LABS: Alanine Aminotransferase 19 U/L (0-33); Albumin Level 2.8 g/dL (3.5-5.2); Alkaline Phosphatase 206 IU/L (35-105); Anion Gap 14.2 (5-19); Aspartate Amino Transferase 45 U/L (0-32); Blood Urea Nitrogen 10 mg/dL (6-20); Calcium 8.5 mg/dL (8.5-10.5); Carbon Dioxide 17 mmol/L (22-29); Chloride 108 mmol/L (98-107); Globulin 3.9 g/dL (1.3-4.6); Glucose 158 mg/dL (65-115); Osmolality Calculated 284 mOsm/kg (285-295); Potassium 3.2 mmol/L (3.5-5.1); Sodium 136 mmol/L (136-145); Total Bilirubin 0.8 mg/dL (0.15-1.2); Total Protein 6.7 g/dL (6.6-8.7)
[2021-10-21] MEDS: pantoprazole 40 mg SDV IVP (07:22)
--- NOTE | 2021-10-21 07:46 | PC.NURSE ---
Shift Summary Patient had an uneventful shift. Reported pain overnight PRN pain medication administered. Boykin catheter drained 2250 mls of urine overnight. Remains on nasal cannula and is alert/oriented x4. No wounds or skin issues noted at this time.
[2021-10-21 08:04] LABS: Glucose Point of Care 134 mg/dL (70-110)
[2021-10-21] MEDS: ketorolac 30 mg/mL INJ IVP (09:38)
[2021-10-21] MEDS: folic acid 1 mg Tablet PO (09:41)
[2021-10-21] MEDS: BuSPIRONE 10 mg Tablet PO ×3 (09:41→20:57)
[2021-10-21] MEDS: levothyroxine 100 mcg Tablet PO (09:41)
[2021-10-21] MEDS: escitalopram 10 mg Tablet PO (09:42)
[2021-10-21] MEDS: multivitamin therapeutic Tablet 1 TAB PO (09:42)
[2021-10-21] MEDS: LORazepam 0.5 mg Tablet PO (09:42)
[2021-10-21] MEDS: thiamine 100 mg Tablet PO (09:42)
[2021-10-21] MEDS: lidocaine 5% Patch 1 PATCH TOPICAL ×2 (09:44→20:57)
[2021-10-21] MEDS: potassium chloride ER 20 mEq Tablet 40 MEQ PO (09:46)
--- NOTE | 2021-10-21 10:39 | PC.NURSE ---
Florian catheter removed per orders. 10mL removed from balloon, catheter intact.
--- NOTE | 2021-10-21 10:52 | PC.CHAP ---
Pastoral Care Encounter/Spiritual Assessment Type of Contact [] Declined hot knife cutter visit [] Patient/Family/Request visit [] Outpatient visit [] Follow-up visit [] Physician referral [] Code/Alert [x] Routine visit [] Staff referral [] Actively dying [] Patient sleeping [] Family support [] [] Out of room [] Palliative care [] [] Receiving care in room [] Pre-surgical visit [] Trauma [] Long length of stay [x] ICU visit [x] Other: setting up in chair.. isolated Relational/Emotional Strength [] Patient feels connected with others/family/visitors/staff [] Distress [] Loneliness/isolation [] Abandonment Spirituality of Patient [] Person of Connie [] Attends Latter-Day of their Connie [] Believes in Prayer [] Reads Bible or Mormonism materials [] There are Spiritual issues to be addressed Metal Cleaner Interventions [x] Prayer [] Active listening [] Non-anxious presence [] Spiritual/emotional support [] Crisis/trauma care [] Spiritual counseling [] Bereavement support [] Provided bereavement packet [] Provided Bible/devotional materials [] Provided toy/stuffed animal, coloring book to patient or family member [] Provided Communion [] Anointing/[place] [] Salvation [x] Completed spiritual assessment [] Other: Impact on Illness or Injury [] Angry [] Fearful [] Anxious [] Often cries [] Exhaustion [] Unable to work [] Unable to attend yazidi [] Unable to walk/stand [] Unable to read [] Unable to drive [] Unable to eat/drink [] Unable to sleep [] Unable to be with family [] Patient intubated [] Other: Summary Time spent with patient
[2021-10-21 12:02] LABS: Glucose Point of Care 171 mg/dL (70-110)
[2021-10-21] MEDS: insulin lispro 100 unit/1 mL SUBCUT ×2 (12:38→20:53)
[2021-10-21] MEDS: ketorolac 10 mg Tablet PO (17:35)
[2021-10-21 17:45] LABS: Glucose Point of Care 129 mg/dL (70-110)
--- NOTE | 2021-10-21 18:22 | PC.NURSE ---
SHift SUmmary: Patient was up to a chair for about 4 hours today. Was able to titrated down to 4L NC was at 8L at beginning of shift. Florian was removed. Patient has med surge orders uneventful shift.
[2021-10-21 20:22] LABS: Glucose Point of Care 150 mg/dL (70-110)
[2021-10-21] MEDS: LORazepam 2 mg/mL INJ 1 mL 1 MG IVP (20:56)
--- NOTE | 2021-10-21 21:34 | P.PN_ITS ---
Subjective Subjective: Patient was seen and examined this morning, has likely pleuritic rt sided chest pain, as she has it with inspiration. Will add toradol today. Medications: Medication Review Details: Generic Name Dose Route Start Last Admin Trade Name Joaquin PRN Reason Stop Dose Admin Acetaminophen 650 mg 10/16/21 06:49 10/17/21 21:57 Acetaminophen 32 5 Mg Tablet PO 650 mg Q6H PRN Administration Mild/Mod Pain Or Temp >/= 101 Albuterol/Ipratrop ium 3 ml 10/16/21 09:00 10/18/21 15:05 Ipratropium-Albu terol 3 Ml Neb INHALATION 3 ml Q6H.RESPIRATORY S CH Administration Buspirone HCl 10 mg 10/17/21 15:00 10/18/21 08:40 Buspirone 10 Mg Tablet PO 10 mg TID LEILA Administration Escitalopram Oxala te 10 mg 10/17/21 11:45 10/18/21 08:41 Escitalopram 10 Mg Tablet PO 10 mg DAILY LEILA Administration Folic Acid 1 mg 10/17/21 09:00 10/18/21 08:40 Folic Acid 1 Mg Tablet PO 1 mg DAILY LEILA Administration Piperacillin Sod/T azobactam 50 mls @ 12.5 mls /hr 10/16/21 10:00 10/18/21 12:58 Sod 3.375 gm/ So dium Chloride IV Infused Q8H LEILA Infusion Protocol Vancomycin/PEG/NAD A/Lysine/Water 1,500 mg in 300 m ls @ 200 mls/hr 10/16/21 17:00 10/18/21 06:41 Vancocin IV Infused Q12H LEILA Infusion Insulin Human Lisp ro 0 unit 10/16/21 12:00 10/18/21 11:30 Insulin Lispro 1 00 Unit/1 Ml SUBCUT 2 unit WM&BEDTIME LEILA Administration Protocol Lidocaine 1 patch 10/16/21 09:00 10/18/21 08:40 Lidocaine 5% Pat ch TOPICAL 1 patch [id number] LEILA Administration Lorazepam 2 mg 10/16/21 19:16 10/17/21 23:02 Lorazepam 2 Mg/M l Inj 1 Ml IM 2 mg Q4H PRN Administration ALCOWD Protocol Lorazepam 0.5 mg 10/17/21 15:00 10/18/21 08:41 Lorazepam 0.5 Mg Tablet PO 0.5 mg TID LEILA Administration Multivitamins Ther apeutic 1 tab 10/17/21 09:00 10/18/21 08:40 Multivitamin The rapeutic Tablet PO 1 tab DAILY LEILA Administration Pantoprazole Sodiu m 40 mg 10/16/21 08:00 10/17/21 09:46 Pantoprazole 40 Mg Sdv IVP 40 mg Q24H LEILA Administration Thiamine Mononitra te 100 mg 10/17/21 09:00 10/18/21 08:41 Thiamine 100 Mg Tablet PO 100 mg DAILY LEILA Administration Vitals/I&O/Wt Last Vital Signs Temp 99.0 F 10/21/21 13:00 Pulse 88 10/21/21 20:20 Resp 36 H 10/21/21 20:57 BP 164/101 10/21/21 15:00 Pulse Ox 94 10/21/21 20:20 10/21/21 10/21/21 10/21/21 06:59 14:59 22:59 Intake Total 800 / 900 770 / 770 200 / 970 Output Total 2250 / 3450 875 / 875 Balance -1450 / -2550 -105 / -105 200 / 95 Weight last 48 hrs Weight 107.456 kg Weight 107.048 kg Physical Exam Const: COMMON NORMALS: patient oriented x3 HENMT: COMMON NORMALS: normocephalic and atraumatic HEAD & SCALP: normocephalic and atraumatic Chest: CHEST: Yes Symmetrical chest wall rise Resp: EFFORT & INSPECTION: Yes symmetric chest movement OTHER: Diminished air entry at right lung base. Cardio: COMMON NORMALS: regular rate, regular rhythm, S1 normal heart sound present, S2 normal heart sound present, No gallops present (Cardio), No murmurs present (Cardio), No rub (Cardio) and Peripheral pulses 2+ throughout RATE: regular rate RHYTHM: regular rhythm HEART SOUNDS: S1 normal heart sound present and S2 normal heart sound present PERIPHERAL PULSES: Peripheral pulses 2+ throughout GI: COMMON NORMALS: Normal to inspection, nondistended, normoactive bowel sounds present, Soft to palpation, non-tender, No hepatosplenomegaly present and no masses AUSCULTATION: Yes normoactive bowel sounds PALPATION: Yes Soft to palpation and Yes No hepatosplenomegaly present RECTAL EXAM: deferred Extremity: COMMON NORMALS: no clubbing, cyanosis or edema and no pedal edema Neuro: COMMON NORMALS: patient oriented x3 Urinary Catheter Management: Boykin: Cath Placed During This Visit: yes Reason for Continuing Indwelling Catheter: Accurate Measurement of Urinary Output in Critically Ill Patients Urinary Catheter Date of Insertion: 10/16/21 Urinary Catheter Time of Insertion: 17:44 Data : 10/21/21 04:47 10/21/21 04:47 A&P Assessment and plan (1) Acute respiratory failure with hypoxia: Status: Acute (2) Pneumonia: Status: Acute (3) Lactic acidosis: Status: Acute (4) Diabetes mellitus, type II: Status: Acute Qualifiers: Diabetes mellitus intermediate insulin use: unspecified small offset printer insulin use status Diabetes mellitus complication status: with other specified complication Qualified Code(s): E11.69 - Type 2 diabetes mellitus with other specified complication (5) Sepsis: Status: Acute Plan 41-year-old lady with several recent hospitalizations, with lumbar epidural abscess, lumbar discitis, osteomyelitis, ESBL UTI, with also history of portal hypertension, hepatic encephalopathy with hyperammonemia, past history of polysubstance abuse and IV drug abuse, which she states is currently in remission, DM2, HTN, hypothyroidism, CHF, ARTURO, presented with chief complaint of shortness of breath, productive cough and hemoptysis which she states have started after a fall 2 days ago on her porch at which time she fell down on the right side of her chest with resultant pain, and subsequently the respiratory symptoms. Assessment #Acute hypoxic respiratory failure secondary to pneumonia: CT chest with contrast: Bilateral patchy groundglass opacities, seen in the upper hemithoraces with consolidation seen in the right lower lobe and right middle lobe as well as within the lingula. Blood culture: Streptococcus pneumoniae / bottles Follow repeat blood culture:Negative Urine Legionella antigen: Negative Bacterial antigen panel: Negative Covid PCR negative Sputum Gram stain and culture vancomycin was discontinued on 10/19 Currently she is on Zosyn. Continue incentive spirometer flutter valve other conservative respiratory support measures. Continue heated high flow oxygen through nasal cannula. Titrate to maintain SPO2 greater than 95. #Sepsis secondary to pneumonia: Patient presented with tachycardia, elevated lactic acidosis, positive blood culture, leukopenia, required IV fluid resuscitation. Plan as above #Pancytopenia : Likely secondary to alcohol abuse: #Hypothyroidism: Continue levothyroxine 100 mcg p.o. daily #Hemoptysis: Continue to continue to monitor CBC No fresh episode during hospital stay Avoid anticoagulation #Thrombocytopenia: Secondary to splenomegaly 2/2 portal hypertension secondary to alcohol abuse Currently no active bleeding Continue to monitor platelet count #Hyperbilirubinemia: Secondary to alcohol abuse: Unlikely obstructive etiology: #History of hepatitis C: She will need GI follow-up as an outpatient. #Hypokalemia: Monitor serum potassium and replace accordingly # Regarding psychiatric issues. Will start lexapro with shorter half life, buspar for anxiety and ativan 0.5 tid scheduled until buspar at steady state. # DM : On carb consistent diet SSI FSG #CODE STATUS: Full code #DVT PPX : ON SCDS #Disposition: Home Attestations Medical Necessity Statement*: Patient needs to be in hospital for the management of above defined problems. Coding Level of Care Code Acute Computer Graphics Illustrator for [facility] Geraldine Diagnoses Acute respiratory failure with hypoxia J96.01 Pneumonia J18.9 Lactic acidosis E87.2 Diabetes mellitus, type II E11.69 Diabetes mellitus small offset printer insulin use: unspecified small offset printer insulin use status Diabetes mellitus complication status: with other specified complication Sepsis A41.9
[2021-10-22] VITALS (18 sets, daily range): BP systolic 152–174; BP diastolic 81–107; PULSE 79–107; RESP 16–24; TEMP 36.7–36.8; O2SAT 89–96; BMI 34.9
[2021-10-22] MEDS: piperacillin-tazobactam 3.375 GM in sodium chloride 0.9% (plus) 50 ML IV ×3 (01:21→18:11)
[2021-10-22] MEDS: ipratropium-albuterol 3 mL Neb INHALATION ×4 (02:50→22:38)
[2021-10-22] MEDS: ketorolac 10 mg Tablet PO (03:57)
[2021-10-22 04:39] LABS: Basophils % 0.5 %; Eosinophils # 0.2 10^3/uL (0.0-0.8); Eosinophils % 3.4 %; Hematocrit 25.7 % (37.0-47.0); Hemoglobin 7.4 g/dL (11.5-15.3); Lymphocytes # 1.9 10^3/uL (0.8-4.8); Lymphocytes % 31.1 %; Mean Corpuscular HGB Conc 28.8 g/dL (30.0-36.0); Mean Corpuscular Hemoglobin 21.5 pg (28.0-34.0); Mean Corpuscular Volume 74.7 fl (81-99); Mean Platelet Volume 10.2 fL (7.4-10.4); Monocytes # 0.5 10^3/uL (0.2-0.9); Monocytes % 8.4 %; Neutrophils # 3.37 10^3/uL (1.8-7.7); Neutrophils % 54.5 %; Nucleated Red Blood Cells % 0 %; Platelet Count 89 10^3/cmm (130-400); Red Blood Count 3.44 10^6/uL (4.1-5.3); Red Cell Distribution Width 26.2 % (12.1-15.1); White Blood Count 6.2 10^3/uL (4.0-10.0)
[2021-10-22 04:57] LABS: Alanine Aminotransferase 23 U/L (0-33); Albumin Level 2.8 g/dL (3.5-5.2); Alkaline Phosphatase 215 IU/L (35-105); Anion Gap 14.8 (5-19); Aspartate Amino Transferase 51 U/L (0-32); Blood Urea Nitrogen 12 mg/dL (6-20); Calcium 8.8 mg/dL (8.5-10.5); Carbon Dioxide 18 mmol/L (22-29); Chloride 106 mmol/L (98-107); Globulin 4.3 g/dL (1.3-4.6); Glucose 132 mg/dL (65-115); Osmolality Calculated 282 mOsm/kg (285-295); Potassium 3.8 mmol/L (3.5-5.1); Sodium 135 mmol/L (136-145); Total Bilirubin 0.8 mg/dL (0.15-1.2); Total Protein 7.1 g/dL (6.6-8.7)
[2021-10-22 05:12] LABS: Slide Review Slide Review Perform
[2021-10-22 07:22] LABS: Glucose Point of Care 156 mg/dL (70-110)
[2021-10-22] MEDS: insulin lispro 100 unit/1 mL SUBCUT (07:41)
[2021-10-22] MEDS: pantoprazole 40 mg SDV IVP (07:41)
[2021-10-22] MEDS: BuSPIRONE 10 mg Tablet PO ×3 (08:38→20:47)
[2021-10-22] MEDS: escitalopram 10 mg Tablet PO (08:38)
[2021-10-22] MEDS: multivitamin therapeutic Tablet 1 TAB PO (08:38)
[2021-10-22] MEDS: folic acid 1 mg Tablet PO (08:38)
[2021-10-22] MEDS: thiamine 100 mg Tablet PO (08:38)
[2021-10-22] MEDS: potassium chloride ER 20 mEq Tablet 40 MEQ PO (08:38)
[2021-10-22] MEDS: levothyroxine 100 mcg Tablet PO (08:39)
--- NOTE | 2021-10-22 09:16 | PC.NURSE ---
0916- Patient transferred to second floor room 261. Resting comfortably in room on 3L NC. Belongings at bedside and medications left with front counter clerk nurse as well as patients chart.
[2021-10-22] MEDS: lidocaine 5% Patch 1 PATCH TOPICAL (10:46)
--- NOTE | 2021-10-22 11:43 | PM.PN ---
Subjective Subjective: Patient was seen and examined this morning, feeling better, right rib cage pain is slightly better. Continue to require minimal supplemental oxygen. Medications: Medication Review Details: Generic Name Dose Route Start Last Admin Trade Name Joaquin PRN Reason Stop Dose Admin Acetaminophen 650 mg 10/16/21 06:49 10/17/21 21:57 Acetaminophen 32 5 Mg Tablet PO 650 mg Q6H PRN Administration Mild/Mod Pain Or Temp >/= 101 Albuterol/Ipratrop ium 3 ml 10/16/21 09:00 10/18/21 15:05 Ipratropium-Albu terol 3 Ml Neb INHALATION 3 ml Q6H.RESPIRATORY S CH Administration Buspirone HCl 10 mg 10/17/21 15:00 10/18/21 08:40 Buspirone 10 Mg Tablet PO 10 mg TID LEILA Administration Escitalopram Oxala te 10 mg 10/17/21 11:45 10/18/21 08:41 Escitalopram 10 Mg Tablet PO 10 mg DAILY LEILA Administration Folic Acid 1 mg 10/17/21 09:00 10/18/21 08:40 Folic Acid 1 Mg Tablet PO 1 mg DAILY LEILA Administration Piperacillin Sod/T azobactam 50 mls @ 12.5 mls /hr 10/16/21 10:00 10/18/21 12:58 Sod 3.375 gm/ So dium Chloride IV Infused Q8H LEILA Infusion Protocol Vancomycin/PEG/NAD A/Lysine/Water 1,500 mg in 300 m ls @ 200 mls/hr 10/16/21 17:00 10/18/21 06:41 Vancocin IV Infused Q12H LEILA Infusion Insulin Human Lisp ro 0 unit 10/16/21 12:00 10/18/21 11:30 Insulin Lispro 1 00 Unit/1 Ml SUBCUT 2 unit WM&BEDTIME LEILA Administration Protocol Lidocaine 1 patch 10/16/21 09:00 10/18/21 08:40 Lidocaine 5% Pat ch TOPICAL 1 patch [id number] LEILA Administration Lorazepam 2 mg 10/16/21 19:16 10/17/21 23:02 Lorazepam 2 Mg/M l Inj 1 Ml IM 2 mg Q4H PRN Administration ALCOWD Protocol Lorazepam 0.5 mg 10/17/21 15:00 10/18/21 08:41 Lorazepam 0.5 Mg Tablet PO 0.5 mg TID LEILA Administration Multivitamins Ther apeutic 1 tab 10/17/21 09:00 10/18/21 08:40 Multivitamin The rapeutic Tablet PO 1 tab DAILY LEILA Administration Pantoprazole Sodiu m 40 mg 10/16/21 08:00 10/17/21 09:46 Pantoprazole 40 Mg Sdv IVP 40 mg Q24H LEILA Administration Thiamine Mononitra te 100 mg 10/17/21 09:00 10/18/21 08:41 Thiamine 100 Mg Tablet PO 100 mg DAILY LEILA Administration Vitals/I&O/Wt Last Vital Signs Temp 98.1 F 10/22/21 11:12 Pulse 107 H 10/22/21 11:12 Resp 18 10/22/21 11:12 BP 173/95 10/22/21 11:12 Pulse Ox 94 10/22/21 11:12 10/21/21 10/22/21 10/22/21 22:59 06:59 14:59 Intake Total 550 / 1320 550 / 1870 222 / 222 Output Total 400 / 1275 Balance 550 / 445 150 / 595 222 / 222 Weight last 48 hrs Weight 107.456 kg Weight 107.456 kg Physical Exam Const: COMMON NORMALS: patient oriented x3 HENMT: COMMON NORMALS: normocephalic and atraumatic HEAD & SCALP: normocephalic and atraumatic Chest: CHEST: Yes Symmetrical chest wall rise Resp: EFFORT & INSPECTION: Yes symmetric chest movement OTHER: Diminished air entry at right lung base. Cardio: COMMON NORMALS: regular rate, regular rhythm, S1 normal heart sound present, S2 normal heart sound present, No gallops present (Cardio), No murmurs present (Cardio), No rub (Cardio) and Peripheral pulses 2+ throughout RATE: regular rate RHYTHM: regular rhythm HEART SOUNDS: S1 normal heart sound present and S2 normal heart sound present PERIPHERAL PULSES: Peripheral pulses 2+ throughout GI: COMMON NORMALS: Normal to inspection, nondistended, normoactive bowel sounds present, Soft to palpation, non-tender, No hepatosplenomegaly present and no masses AUSCULTATION: Yes normoactive bowel sounds PALPATION: Yes Soft to palpation and Yes No hepatosplenomegaly present RECTAL EXAM: deferred Extremity: COMMON NORMALS: no clubbing, cyanosis or edema and no pedal edema Neuro: COMMON NORMALS: patient oriented x3 Urinary Catheter Management: Boykin: Cath Placed During This Visit: yes Reason for Continuing Indwelling Catheter: Accurate Measurement of Urinary Output in Critically Ill Patients Urinary Catheter Date of Insertion: 10/16/21 Urinary Catheter Time of Insertion: 17:44 Data : 10/22/21 04:21 10/22/21 04:21 A&P Assessment and plan (1) Acute respiratory failure with hypoxia: Status: Acute (2) Pneumonia: Status: Acute (3) Lactic acidosis: Status: Acute (4) Diabetes mellitus, type II: Status: Acute Qualifiers: Diabetes mellitus complication status: with other specified complication Diabetes mellitus predatory animal exterminator insulin use: unspecified predatory animal exterminator insulin use status Qualified Code(s): E11.69 - Type 2 diabetes mellitus with other specified complication (5) Sepsis: Status: Acute Plan 41-year-old lady with several recent hospitalizations, with lumbar epidural abscess, lumbar discitis, osteomyelitis, ESBL UTI, with also history of portal hypertension, hepatic encephalopathy with hyperammonemia, past history of polysubstance abuse and IV drug abuse, which she states is currently in remission, DM2, HTN, hypothyroidism, CHF, ARTURO, presented with chief complaint of shortness of breath, productive cough and hemoptysis which she states have started after a fall 2 days ago on her porch at which time she fell down on the right side of her chest with resultant pain, and subsequently the respiratory symptoms. Assessment #Acute hypoxic respiratory failure secondary to pneumonia: CT chest with contrast: Bilateral patchy groundglass opacities, seen in the upper hemithoraces with consolidation seen in the right lower lobe and right middle lobe as well as within the lingula. Blood culture: Streptococcus pneumoniae 4/4 bottles Follow repeat blood culture:Negative Urine Legionella antigen: Negative Bacterial antigen panel: Negative Covid PCR negative Sputum Gram stain and culture vancomycin was discontinued on 10/19 Currently she is on Zosyn. Continue incentive spirometer flutter valve other conservative respiratory support measures. Continue heated high flow oxygen through nasal cannula. Titrate to maintain SPO2 greater than 95. #Sepsis secondary to pneumonia: Patient presented with tachycardia, elevated lactic acidosis, positive blood culture, leukopenia, required IV fluid resuscitation. Plan as above #Pancytopenia : Likely secondary to alcohol abuse: #Hypothyroidism: Continue levothyroxine 100 mcg p.o. daily #Hemoptysis: Continue to continue to monitor CBC No fresh episode during hospital stay Avoid anticoagulation #Thrombocytopenia: Secondary to splenomegaly 2/2 portal hypertension secondary to alcohol abuse Currently no active bleeding Continue to monitor platelet count #Hyperbilirubinemia: Secondary to alcohol abuse: Unlikely obstructive etiology: #History of hepatitis C: She will need GI follow-up as an outpatient. #Hypokalemia: Monitor serum potassium and replace accordingly # Regarding psychiatric issues. Will start lexapro with shorter half life, buspar for anxiety and ativan 0.5 tid scheduled until buspar at steady state. 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
[2021-10-22 11:50] LABS: Glucose Point of Care 134 mg/dL (70-110)
[2021-10-22] MEDS: oxyCODONE-APAP 5-325 mg Tablet 1 TAB PO ×2 (14:25→20:46)
[2021-10-22 17:44] LABS: Glucose Point of Care 116 mg/dL (70-110)
[2021-10-23] VITALS (7 sets, daily range): BP systolic 133–167; BP diastolic 81–96; PULSE 90–100; RESP 16–20; TEMP 36.8–36.9; O2SAT 90–97
[2021-10-23] MEDS: ketorolac 10 mg Tablet PO (00:26)
[2021-10-23] MEDS: cyclobenzaprine 10 mg Tablet 5 MG PO (00:26)
[2021-10-23] MEDS: piperacillin-tazobactam 3.375 GM in sodium chloride 0.9% (plus) 50 ML IV (01:28)
[2021-10-23] MEDS: oxyCODONE-APAP 5-325 mg Tablet 1 TAB PO ×2 (03:06→10:58)
[2021-10-23 05:27] LABS: Basophils % 0.3 %; Eosinophils # 0.2 10^3/uL (0.0-0.8); Eosinophils % 2.6 %; Hematocrit 26.3 % (37.0-47.0); Hemoglobin 7.6 g/dL (11.5-15.3); Lymphocytes % 33.1 %; Mean Corpuscular HGB Conc 28.9 g/dL (30.0-36.0); Mean Corpuscular Hemoglobin 22.2 pg (28.0-34.0); Mean Corpuscular Volume 76.9 fl (81-99); Mean Platelet Volume 9.3 fL (7.4-10.4); Monocytes # 0.5 10^3/uL (0.2-0.9); Monocytes % 7.9 %; Neutrophils # 3.39 10^3/uL (1.8-7.7); Nucleated Red Blood Cells % 0 %; Platelet Count 81 10^3/cmm (130-400); Red Blood Count 3.42 10^6/uL (4.1-5.3); Red Cell Distribution Width 26.9 % (12.1-15.1); White Blood Count 6.2 10^3/uL (4.0-10.0)
[2021-10-23 05:43] LABS: Slide Review Slide Review Perform
[2021-10-23 05:47] LABS: Alanine Aminotransferase 23 U/L (0-33); Albumin Level 2.9 g/dL (3.5-5.2); Alkaline Phosphatase 222 IU/L (35-105); Anion Gap 17.2 (5-19); Aspartate Amino Transferase 50 U/L (0-32); Blood Urea Nitrogen 12 mg/dL (6-20); Carbon Dioxide 18 mmol/L (22-29); Chloride 104 mmol/L (98-107); Globulin 4.4 g/dL (1.3-4.6); Glucose 108 mg/dL (65-115); Osmolality Calculated 280 mOsm/kg (285-295); Potassium 4.2 mmol/L (3.5-5.1); Sodium 135 mmol/L (136-145); Total Bilirubin 0.9 mg/dL (0.15-1.2); Total Protein 7.3 g/dL (6.6-8.7)
[2021-10-23] MEDS: levothyroxine 100 mcg Tablet PO (08:05)
[2021-10-23] MEDS: BuSPIRONE 10 mg Tablet PO (08:05)
[2021-10-23] MEDS: thiamine 100 mg Tablet PO (08:05)
[2021-10-23] MEDS: potassium chloride ER 20 mEq Tablet 40 MEQ PO (08:05)
[2021-10-23] MEDS: folic acid 1 mg Tablet PO (08:05)
[2021-10-23] MEDS: multivitamin therapeutic Tablet 1 TAB PO (08:05)
[2021-10-23] MEDS: escitalopram 10 mg Tablet PO (08:05)
[2021-10-23] MEDS: ipratropium-albuterol 3 mL Neb INHALATION (08:09)
--- NOTE | 2021-10-23 09:31 | P.DS_ITS ---
Discharge Providers Date of Admission: 10/16/21 06:05 Date of Discharge: October 23, 2021 Attending Provider at Admission: Miguel Ángel Stephens Attending Provider at Discharge: Miguel Ángel Stephens Primary Care Provider: FARHAT Rivera Diagnoses at Discharge Discharge Diagnosis (1) Acute respiratory failure with hypoxia: Status: Acute (2) Pneumonia: Status: Acute (3) Lactic acidosis: Status: Acute (4) Diabetes mellitus, type II: Status: Acute Qualifiers: Diabetes mellitus complication status: with other specified complication Diabetes mellitus halfway insulin use: unspecified computer terminal operator insulin use status Qualified Code(s): E11.69 - Type 2 diabetes mellitus with other specified complication (5) Sepsis: Status: Acute Reason for Visit Reason for Visit: coughing Hospital Course Hospital Course 41-year-old lady with multiple recent hospitalizations including with lumbar epidural abscess, lumbar discitis, osteomyelitis, ESBL UTI, with also history of portal hypertension, hepatic encephalopathy with hyperammonemia, prior history of substance abuse with IV drug abuse, currently in remission, although during this hospitalization admitting to occasionally smoking methamphetamine, marijuana, also with alcohol use disorder, smoking addiction, DM2, HTN, hypothyroidism, CHF, sick, not normally on supplemental oxygen additional chronic medical conditions as per [facility] was admitted after presenting with shortness of breath, cough, hemoptysis, treated for possible hospital-acquired pneumonia given recent hospitalizations, with empiric broad coverage with vancomycin, was stopped on 10/19, also Zosyn with which she completed 7 days course. Blood cultures during hospitalization did grow Streptococcus pneumoniae. Original blood cultures 10/16, repeat blood culture 10/19 negative. She has weaned down to in terms of oxygen requirement, initially requiring heated high flow oxygen support, FiO2 as high as 85%, gradually weaned off, and currently is doing well on room air. Home oxygen evaluation supports not needed post discharge oxygen. And subjectively she says she is feeling much better. Please follow-up regarding resolution of pneumonia, hemoptysis. After recent discharge from [facility] she at the time by biopsy was not found to have bacterial growth from disc aspiration, however, is asked to still follow-up locally with orthopedics, infectious disease as recommended per [facility] discharge. Please follow-up regarding this with her. Please also follow-up regarding abstinence from any substance use, please assist with achieving abstinence refer to rehabilitation should she find this unacceptable option. Continue to revisit also regarding smoking cessation. Please also follow-up and monitor pancytopenia which is thought to be secondary to alcohol intake. In case unimproving, consider referral to hematology. Symptoms discontinue phentermine. Reduce Physical Exam Const: COMMON NORMALS: no acute distress and patient oriented x3 HENMT: COMMON NORMALS: oropharynx normal Neck/C-Spine: COMMON NORMALS: no JVD Resp: COMMON NORMALS: normal respiratory effort AUSCULTATION: other (min wheeze L lung) Cardio: COMMON NORMALS: no JVD, regular rhythm, S1 normal heart sound present, S2 normal heart sound present and No murmurs present (Cardio) RHYTHM: regular rhythm HEART SOUNDS: S1 normal heart sound present and S2 normal heart sound present GI: COMMON NORMALS: Normal to inspection, nondistended, normoactive bowel sounds present, Soft to palpation and non-tender PALPATION: Yes Soft to palpation Extremity: COMMON NORMALS: no joint enlargement and no pedal edema Neuro: COMMON NORMALS: patient oriented x3 and moves all extremities Skin: COMMON NORMALS: no rashes or lesions noted GENERAL SKIN EXAM: no rashes or lesions noted Urinary Catheter Management: Boykin: Cath Placed During This Visit: yes Reason for Continuing Indwelling Catheter: Accurate Measurement of Urinary Output in Critically Ill Patients Urinary Catheter Date of Insertion: 10/16/21 Urinary Catheter Time of Insertion: 17:44 Discharge Data Studies Completed and Pending Completed Studies During Hospitalization Category Date Time Status CT angio chest w abd pel w con Urgent Cat Scan 10/16/21 02:13 Completed XR chest 1V portable [id number] Routine Exams 10/20/21 14:06 Completed XR chest 1V portable [id number] Urgent Exams 10/16/21 02:13 Completed US abdomen limited [id number] Routine Ultrasound 10/16/21 06:51 Completed Pending at discharge Category Date Time Status Blood Culture AM LABS Lab 10/19/21 08:18 Results MRSA by PCR Routine Lab 10/16/21 06:23 Uncollected Sputum Culture and Gram Stain Routine Lab 10/16/21 06:23 Uncollected Radiology Impressions Chest/Abdomen/Pelvis CT 10/16/21 02:13 IMPRESSION: 1. There is no evidence for pulmonary emboli. 2. There are patchy bilateral irregular ground-glass opacity seen in the upper hemithoraces with consolidation seen in the right lower lobe and right middle lobe as well as within the lingula, findings compatible with a bilateral pneumonia. IMPRESSION: 1. Intermediate attenuation material in the gallbladder neck likely represents gallbladder sludge. 2. Mild splenomegaly 3. Mildly prominent mesenteric lymph nodes seen in the right flank measuring up to 15 mm transverse dimension. 4. Nonobstructing 3.6 mm calculus in the lower pole of the left kidney 5. Benign 7.7 mm cyst in the posterior aspect of the right kidney. No further workup needed. COMMENTS: Consistent with the [place] [employer]'s Incidental Findings Committee white paper (J Am Shante Radiol 2018): Any incidental renal lesion less than 1 cm or classified as too small to characterize, or any incidental cystic renal lesion characterized as simple-appearing, is likely benign. No follow-up imaging is recommended for these lesions per consensus recommendations based on imaging criteria. Abdomen Ultrasound 10/16/21 06:51 IMPRESSION: No acute findings. Chest X-Ray 10/20/21 14:06 IMPRESSION: Some residual opacities are noted within the right mid and left lower lungs. Laboratory Results WBC 6.2 10^3/uL (4.0-10.0) 10/23/21 04:43 RBC 3.42 10^6/uL (4.1-5.3) L 10/23/21 04:43 Hgb 7.6 g/dL (11.5-15.3) L 10/23/21 04:43 Hct 26.3 % (37.0-47.0) L 10/23/21 04:43 MCV 76.9 fl (81-99) L 10/23/21 04:43 MCH 22.2 pg (28.0-34.0) L 10/23/21 04:43 MCHC 28.9 g/dL (30.0-36.0) L 10/23/21 04:43 RDW 26.9 % (12.1-15.1) H 10/23/21 04:43 Plt Count 81 10^3/cmm (130-400) L 10/23/21 04:43 MPV 9.3 fL (7.4-10.4) 10/23/21 04:43 Neut % (Auto) 55.0 % 10/23/21 04:43 Lymph % (Auto) 33.1 % 10/23/21 04:43 [place] % (Auto) 7.9 % 10/23/21 04:43 Eos % (Auto) 2.6 % 10/23/21 04:43 Baso % (Auto) 0.3 % 10/23/21 04:43 Neut # (Auto) 3.39 10^3/uL (1.8-7.7) 10/23/21 04:43 Lymph # (Auto) 2.0 10^3/uL (0.8-4.8) 10/23/21 04:43 [place] # (Auto) 0.5 10^3/uL (0.2-0.9) 10/23/21 04:43 Eos # (Auto) 0.2 10^3/uL (0.0-0.8) 10/23/21 04:43 Baso # (Auto) 0.0 10^3/uL (0.0-0.1) 10/23/21 04:43 Nucleated RBC % (auto) 0 % 10/23/21 04:43 Total Counted 100 (0-100) 10/20/21 08:10 Atypical Lymphs % 0.0 % (0-5) 10/20/21 08:10 Absolute Neutrophils 5.3 10^3/cmm (1.4-6.5) 10/20/21 08:10 Segmented Neutrophils 55 % 10/20/21 08:10 Abs Segm Neuts (Man) 4.2 10/cmm (1.6-7.1) 10/20/21 08:10 Band Neutrophils 15.0 % 10/20/21 08:10 Abs Band Neuts (Man) 1.1 10^3/cmm (0.0-1.2) 10/20/21 08:10 Absolute Lymphocytes 1.8 10^3/cmm (1.2-3.4) 10/20/21 08:10 Lymphocytes (Manual) 24 % 10/20/21 08:10 Monocytes (Manual) 4.0 % 10/20/21 08:10 Absolute Monocytes 0.3 10^3/cmm (0.1-0.6) 10/20/21 08:10 Eosinophils (Manual) 1 % 10/20/21 08:10 Absolute Eosinophils 0.0 10^3/cmm (0.0-0.7) 10/20/21 08:10 Basophils (Manual) 0.0 % 10/20/21 08:10 Absolute Basophils 0.0 10^3/cmm (0.0-0.2) 10/20/21 08:10 Metamyelocytes 1.0 % 10/20/21 08:10 Nucleated RBCs 1.0 /100WBC (0-1) 10/20/21 08:10 Nucleated RBCs # 0.0 /100WBC 10/23/21 04:43 Smudge Cells Trace 10/16/21 02:24 Platelet Estimate Decreased (Normal) L 10/20/21 08:10 Polychromasia 1+ H 10/20/21 08:10 Hypochromasia 2+ H 10/20/21 08:10 Poikilocytosis 1+ H 10/20/21 08:10 Anisocytosis 2+ H 10/20/21 08:10 Ovalocytes 1+ H 10/16/21 02:24 [place] Cells 2+ H 10/16/21 02:24 Acanthocytes (Spur) 1+ H 10/16/21 02:24 Schistocytes Trace 10/20/21 08:10 Sodium 135 mmol/L (136-145) L 10/23/21 04:43 Potassium 4.2 mmol/L (3.5-5.1) 10/23/21 04:43 Chloride 104 mmol/L (98-107) 10/23/21 04:43 Carbon Dioxide 18 mmol/L (22-29) L 10/23/21 04:43 Anion Gap 17.2 (5-19) 10/23/21 04:43 BUN 12 mg/dL (6-20) 10/23/21 04:43 Creatinine 0.5 mg/dL (0.5-0.9) 10/23/21 04:43 GFR Calculation 136.0 mL/min (90-130) H 10/23/21 04:43 Glucose 108 mg/dL (65-115) 10/23/21 04:43 POC Glucose 116 mg/dL (70-110) H 10/22/21 17:32 Calculated Osmolality 280 mOsm/kg (285-295) L 10/23/21 04:43 Lactic Acid 7.2 mmol/L (0.5-2.2) H* 10/16/21 02:24 Lactate 5.0 mmol/L (0.5-2.2) H* 10/16/21 08:44 Calcium 9.0 mg/dL (8.5-10.5) 10/23/21 04:43 Total Bilirubin 0.9 mg/dL (0.15-1.2) 10/23/21 04:43 AST 50 U/L (0-32) H 10/23/21 04:43 ALT 23 U/L (0-33) 10/23/21 04:43 Alkaline Phosphatase 222 IU/L (35-105) H 10/23/21 04:43 Ammonia 40 umol/L (11-51) 10/16/21 21:58 Troponin T Baseline 9 ng/L (0-10) 10/16/21 02:24 Troponin T 120 Minute 8.58 ng/L (0-10) 10/16/21 04:18 Delta Troponin T -0.42 ABS# (0-10) L 10/16/21 04:18 Troponin T Hi Sens 6Hr 7.25 ng/L (0-10) 10/16/21 08:44 Troponin T Hi Sens 6Hr Delta -1.75 ng/L (0-12) L 10/16/21 08:44 NT-Pro-B Natriuret Pep 814 pg/mL (0-125) H 10/16/21 02:24 Total Protein 7.3 g/dL (6.6-8.7) 10/23/21 04:43 Albumin 2.9 g/dL (3.5-5.2) L 10/23/21 04:43 Globulin 4.4 g/dL (1.3-4.6) 10/23/21 04:43 Procalcitonin 9.76 ng/mL (0-0.5) H 10/16/21 02:24 HCG, Qual Negative (Negative) 10/16/21 02:24 Urine Color Yellow (Yellow) 10/16/21 04:32 Urine Appearance Clear (CLEAR) 10/16/21 04:32 Urine pH 7 (5-7) 10/16/21 04:32 Ur Specific [place] 1.000 (1.005-1.030) L 10/16/21 04:32 Urine Protein Neg (Negative) 10/16/21 04:32 Urine Glucose (UA) Norm (Normal) 10/16/21 04:32 Urine Ketones Negative (Negative) 10/16/21 04:32 Urine Blood Neg (Negative) 10/16/21 04:32 Urine Nitrate Negative (Negative) 10/16/21 04:32 Urine Bilirubin Neg (Negative) 10/16/21 04:32 Urine Urobilinogen 1 mg/dL (Negative) H 10/16/21 04:32 Ur Leukocyte Esterase Negative (Negative) 10/16/21 04:32 Vancomycin Trough 11.0 ug/mL (10-15) 10/19/21 16:00 Coronavirus 229E (PCR) Not detected (NOT DETECT) 10/16/21 05:30 SARS-CoV-2 (PCR) Not detected (NOT DETECT) 10/16/21 05:30 SARS-CoV-2 Ag (Rapid) Negative (Negative) 10/16/21 02:24 Vitals Last Vital Signs Temp 98.2 F 10/23/21 07:48 Pulse 100 10/23/21 08:09 Resp 16 10/23/21 08:09 BP 142/82 10/23/21 07:48 Pulse Ox 97 10/23/21 08:09 Discharge Plan Discharge Patient Disposition: Home Condition: Stable Prescriptions: New Mucinex 600 mg tablet extended release 12hr 600 mg PO BID PRN (Reason: cough) Qty: 14 2RF Continued thiamine HCl (vitamin B1) 100 mg tablet 100 mg PO DAILY 0RF PNV,calcium 35-lmnv-gurtm acid 27 mg iron- 1 mg tablet 1 tab PO DAILY 0RF potassium chloride 10 mEq capsule, extended release 10 meq PO DAILY 0RF (DME) blood sugar diagnostic Strip See Rx Instructions .ROUTE .MEDSUPPLY Qty: 100 5RF Rx Instructions: use to check blood sugar 3-4 times per day levothyroxine 100 mcg tablet 100 mcg PO DAILY Qty: 30 0RF propranolol 40 mg tablet 40 mg PO BID Qty: 30 0RF pen needle, diabetic [Comfort EZ Pen Gray] 29 gauge x 1/2 needle See Rx Instructions .ROUTE .COMPLEX Qty: 100 1RF Dose Instruction: USE THREE TIMES DAILY Rx Instructions: USE THREE TIMES DAILY cyclobenzaprine 5 mg tablet 5 mg PO BID PRN (Reason: muscle spasm) 30 Days Qty: 60 0RF Rx Instructions: Do not operate heavy machinery or drive while taking the medication albuterol sulfate 90 mcg/actuation Hfa Aerosol Inhaler 2 puff INHALATION QID PRN (Reason: Shortness Of Breath) 0RF insulin lispro [Humalog U-100 Insulin] 100 unit/mL Solution See Rx Instructions .ROUTE .COMPLEX Qty: 10 0RF Rx Instructions: insulin sliding scale, inject subcut, tid and bedtime, before meals, based on sliding scale Levemir U-100 Insulin 100 unit/mL Solution 10 unit SUBCUT Q12H Qty: 10 0RF vancomycin-water inject (PEG) 1.5 gram/300 mL Piggyback 1,500 mg continuous IV infusion Q12H Qty: 1800 0RF Rx Instructions: END DATE sep 10 lactulose 20 gram/30 mL solution 20 g PO BID Qty: 1200 0RF Rx Instructions: titrate to 3-4 BM a day sennosides [Senna Lax] 8.6 mg tablet 8.6 mg PO DAILY Qty: 30 0RF furosemide 20 mg tablet 20 mg PO DAILY 0RF Discontinued naproxen 500 mg tablet 500 mg PO BID PRN (Reason: pain) 30 Days Qty: 60 0RF Discharge Orders: Discharge Order (Routine); Ordered 10/23/21 Ordered By: Miguel Ángel Stephens Referrals: Jhon Wong DO [Physician] - 11/03/21 2:15 pm MADAN Mayfield, FARHAT [Primary Care Provider] - 10/28/21 11:00 am (Please follow up with PCP on getting a referral for Infectious Disease with the following information: ID clinic - prior diskitis, epidural abscess) Latrice Frias MD [Hospitalist] - 1 month (Please follow up with PCP to get a referral for this appointment using the following information. ID clinic - prior diskitis, epidural abscess) Discharge Diet: Diabetic Discharge Activity: Increase activity as tolerated Activity Restrictions/Additional Instructions: Please take NSAIDs respiratory flutter valve home and continue to use them. Please avoid any alcohol, avoid marijuana or methamphetamine, or any other drug use. Please stop smoking. Please follow-up with your primary doctor regards to resolution of pneumonia, resolution of coughing up any blood. Please follow-up also with orthopedics infectious disease doctors in office r egarding prior pus collection in your spine, disc infection. Discharge Attestations Time Spent in Discharge Care*: greater than 30 min Status at Discharge: Cognitive status at discharge: cognitively intact , Behavioral status at discharge: cooperative , Quality Metrics Clinical Quality Measures [ No reported AMI, CVA or VTE this stay] Coding Level of Care Code Acute g FW NH note Diagnoses Acute respiratory failure with hypoxia J96.01 Pneumonia J18.9 Lactic acidosis E87.2 Diabetes mellitus, type II E11.69 Diabetes mellitus complication status: with other specified complication Diabetes mellitus computer terminal operator insulin use: unspecified computer terminal operator insulin use status Sepsis A41.9
[2021-10-23 11:51] LABS: Glucose Point of Care 194 mg/dL (70-110)
== END 2021-10-23 14:32 | disposition home or self-care (01) | DRG 871 ==
LOC: ER 05:18 → ICU 05:33 → MEDSURG 10-22 08:59
PROVIDERS: Internal Medicine; Physician Assistant; Admitting Provider Internal Medicine; Emergency Provider Emergency Medicine; PCP Nurse Practitioner Family; Visit Provider Internal Medicine
DX: A40.3 Sepsis due to Streptococcus pneumoniae (principal); J18.9 Pneumonia, unspecified organism; J96.01 Acute respiratory failure with hypoxia; R04.2 Hemoptysis; E87.2 Acidosis; D61.818 Other pancytopenia; E11.9 Type 2 diabetes mellitus without complications; Z79.4 Long term (current) use of insulin; F17.200 Nicotine dependence, unspecified, uncomplicated; E03.9 Hypothyroidism, unspecified; I50.9 Heart failure, unspecified; E80.6 Other disorders of bilirubin metabolism; F15.11 Other stimulant abuse, in remission; F10.11 Alcohol abuse, in remission; I11.0 Hypertensive heart disease with heart failure; F41.9 Anxiety disorder, unspecified; F31.9 Bipolar disorder, unspecified; F60.3 Borderline personality disorder; Z86.19 Personal history of other infectious and parasitic diseases; E87.6 Hypokalemia
CPT/HCPCS: 36415; 36416; 51702; 71045; 71275; 74177; 76705; 80048; 80053; 80202; 81003; 82140; 82962; 83605; 83880; 84145; 84484; 84703; 85007; 85025; 85027; 86403; 87040; 87077; 87150; 87186; 87205; 87426; 87449; 87635; 93005; 94640; 94664; 96365; 96366; 96367; 96372; 96375; 96376; 97110; 97116; 97161; 97530; 99285; C9113; J1815; J1885; J2060; J2543; J3370; J3411; J3480; J7030; J7040; Q9967

== ENCOUNTER → 2021-11-03 14:02 | Outpatient (BNVA) | payer MEDICAID, SELFPAY | PROVIDERS: PCP Nurse Practitioner Family; Visit Provider Orthopaedic Surgery | DX: S82.55XA Nondisplaced fracture of medial malleolus of left tibia, initial encounter for closed fracture (principal); W19.XXXA Unspecified fall, initial encounter; M46.46 Discitis, unspecified, lumbar region; M25.572 Pain in left ankle and joints of left foot; M25.562 Pain in left knee; M25.561 Pain in right knee | CPT/HCPCS: 73560; 73565; 73610; 73630; 99214 ==

== ENCOUNTER 2021-12-13 22:20 | Inpatient (IN) | payer MEDICAID, SELFPAY ==
[2021-12-13 22:44] VITALS: BP 167/83; PULSE 97; RESP 20; TEMP 36.5; O2SAT 98; BMI 31.0
--- NOTE | 2021-12-13 22:45 | ECG_ITS ---
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 Measurements Intervals [place] Rate: 91 P: 1 ID: [id number] QRS: 13 QRSD: 94 T: 49 QT: 373 QTc: 461 Interpretive Statements SINUS RHYTHM Compared to ECG 10/16/2021 03:17:38 No significant changes Electronically Signed On 12-14-2021 17:38:01 CDT by Radha Sofia M.D. [id number]
--- NOTE | 2021-12-13 23:04 | ED.C_ITS ---
Documented by User: JESSICA Mullins 12/14/21 17:16 HPI - Psych General: Chief Complaint: Psychiatric Symptoms Stated Complaint: SI Time Seen by Provider: 12/13/21 22:44 History of Present Illness: Patient is a 41-year-old female comes to the ED for mental health evaluation. Patient says she takes Prozac 40 mg daily for her depression. She thinks that the medication is not working. She is having increased depression but denies any SI. Patient is complaining of having some nausea, vomiting and abdominal pain that started today. Her abdominal pain is located in the periumbilical region. Abdominal pain rated 8 out of 10. Denies any fever, chills, dysuria, hematuria, diarrhea, constipation or blood in stool. When I asked patient about suicidal thoughts she was slow to give me an answer. Mother brought patient in and filled out affidavit. Mother says patient has been talking about increased depression and has expressed thoughts of suicide verbally to mother multiple times. She is said directly to mother that she just wants to and mother is worried that she is a serious harm to herself. Associated symptoms: Reports depression and suicidal ideation; Deny homicidal ideation Review of Systems Const: Denies: fever(s), chills or fatigue Eyes: Denies: change in vision or eye discomfort ENMT: Denies: throat pain, odynophagia, nasal discharge or nasal congestion Card: Denies: chest pain, palpitations, edema, swelling of feet/ankles, dyspnea on exertion or orthopnea Resp: Denies: dyspnea, productive cough or non-productive cough GI: Reports: abdominal pain, nausea and vomiting; Denies: diarrhea, constipation or hematochezia : Denies: flank pain, dysuria or hematuria Musc: Denies: neck pain, back pain or extremity swelling Skin/Breast: Denies: rash or new lesions Neuro: Denies: headache(s), numbness in extremities or weakness in extremities Psych: Reports: depression and suicidal ideation; Denies: homicidal ideation PFS ED PFSH: Medical History Abdominal pain Adjustment reaction with anxiety and depression Alcohol use disorder Anemia Anxiety with depression Bipolar disorder Borderline personality disorder Cholelithiasis Congestive heart failure Cystitis Diabetes mellitus, type II Drug-induced psychotic disorder FH: breast cancer in first degree relative H/O chronic hepatitis Hepatic encephalopathy Hypertension Hypertension screen Hypothyroid Meningitis Metabolic encephalopathy Methamphetamine abuse Muscle spasm Obstructive sleep apnea Opiate dependence 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 Pneumonia Polysubstance abuse Polysubstance abuse Respiratory failure with hypoxia Sepsis Staphylococcus aureus bacteremia Vitamin D deficiency Yeast dermatitis Surgical History History of Social History Smoking and tobacco status: never smoked Second hand smoke exposure: No Smoking risk assessment/counseling performed?: No Alcohol intake: never Desire information about alcohol rehabilitation?: No Counseling given: No Desire information about substance/drug rehabilitation?: No Counseling given: No Female Reproductive History: Date of last menstrual period: 10/23/20 Physical Exam Const: COMMON NORMALS: patient oriented x3 and alert GENERAL APPEARANCE: cooperative and other (Actively vomiting here in the ED) HENMT: COMMON NORMALS: normocephalic HEAD & SCALP: normocephalic MOUTH: Normal oral and palatal mucosa present THROAT: posterior oropharynx normal and uvula midline Neck/C-Spine: COMMON NORMALS: supple GENERAL: Yes normal visual inspection Resp: COMMON NORMALS: normal respiratory effort, No retractions, No use of accessory muscles and clear to auscultation bilaterally AUSCULTATION: clear to auscultation bilaterally Cardio: COMMON NORMALS: regular rate, regular rhythm, S1 normal heart sound present, S2 normal heart sound present, No gallops present (Cardio), No clicks present (Cardio), No murmurs present (Cardio) and Peripheral pulses 2+ throughout RATE: regular rate RHYTHM: regular rhythm HEART SOUNDS: S1 normal heart sound present and S2 normal heart sound present PERIPHERAL PULSES: Peripheral pulses 2+ throughout GI: COMMON NORMALS: Normal to inspection, nondistended, normoactive bowel sounds present, Soft to palpation and no masses INSPECTION: Yes central obesity PALPATION: Yes Soft to palpation and Yes Tenderness to palpation present (GI) (Periumbilical region) : COMMON NORMALS: Yes no CVA tenderness BLADDER/KIDNEY EXAM: Yes no CVA tenderness Back/Pelvis: COMMON NORMALS: no CVA tenderness Extremity: COMMON NORMALS: normal to inspection Neuro: COMMON NORMALS: patient oriented x3 and moves all extremities SENSORIUM/ORIENTATION: Yes alert Skin: GENERAL SKIN EXAM: dry skin Course Vital Signs: Vital signs: Vital Signs Temperature 98.7 F 12/14/21 14:00 Pulse Rate 110 H 12/14/21 14:00 Respiratory Rate 22 H 12/14/21 14:00 Blood Pressure 169/95 12/14/21 14:00 Pulse Oximetry 97 12/14/21 14:00 MDM - Psych Lab Data I reviewed the patient's lab results. : 12/14/21 00:57 12/14/21 05:20 Radiology Impressions Abdomen/Pelvis CT 12/14/21 02:14 IMPRESSION: 1. Probable gallbladder sludge or tiny gallstones without evidence of cholecystitis. New 2. Punctate nonobstructing right renal calculus 2. Hypoattenuation cystic mass within the left ovary measuring up to 4.1 cm likely representing a benign functional ovarian cyst. 3. Normal appendix 4. Stable deformities of L4-S1 vertebral bodies Laboratory Results WBC 5.8 10^3/uL (4.0-10.0) 12/14/21 00:57 Corrected WBC Cancelled 12/13/21 23:48 RBC 5.18 10^6/uL (4.1-5.3) 12/14/21 00:57 Hgb 11.0 g/dL (11.5-15.3) L 12/14/21 00:57 Hct 38.3 % (37.0-47.0) 12/14/21 00:57 MCV 73.9 fl (81-99) L 12/14/21 00:57 MCH 21.2 pg (28.0-34.0) L 12/14/21 00:57 MCHC 28.7 g/dL (30.0-36.0) L 12/14/21 00:57 RDW 20.1 % (12.1-15.1) H 12/14/21 00:57 Plt Count 113 10^3/cmm (130-400) L 12/14/21 00:57 MPV 9.0 fL (7.4-10.4) 12/14/21 00:57 Gran % Cancelled 12/13/21 23:48 Neut % (Auto) 33.5 % 12/14/21 00:57 Lymph % (Auto) 53.1 % 12/14/21 00:57 Ponce % (Auto) 12.8 % 12/14/21 00:57 Eos % (Auto) 0.2 % 12/14/21 00:57 Baso % (Auto) 0.2 % 12/14/21 00:57 Neut # (Auto) 1.93 10^3/uL (1.8-7.7) 12/14/21 00:57 Lymph # (Auto) 3.1 10^3/uL (0.8-4.8) 12/14/21 00:57 Ponce # (Auto) 0.7 10^3/uL (0.2-0.9) 12/14/21 00:57 Eos # (Auto) 0.0 10^3/uL (0.0-0.8) 12/14/21 00:57 Baso # (Auto) 0.0 10^3/uL (0.0-0.1) 12/14/21 00:57 Absolute Gran (auto) Cancelled 12/13/21 23:48 Nucleated RBC % (auto) 0 % 12/14/21 00:57 Nucleated RBCs # 0.0 /100WBC 12/14/21 00:57 Sodium 142 mmol/L (136-145) 12/14/21 05:20 Potassium 3.2 mmol/L (3.5-5.1) L 12/14/21 05:20 Chloride 111 mmol/L (98-107) H 12/14/21 05:20 Carbon Dioxide 17 mmol/L (22-29) L 12/14/21 05:20 Anion Gap 17.2 (5-19) 12/14/21 05:20 BUN 7 mg/dL (6-20) 12/14/21 05:20 Creatinine 0.5 mg/dL (0.5-0.9) 12/14/21 05:20 GFR Calculation 136.0 mL/min (90-130) H 12/14/21 05:20 Glucose 158 mg/dL (65-115) H 12/14/21 05:20 Calculated Osmolality 295 mOsm/kg (285-295) 12/14/21 05:20 Calcium 7.9 mg/dL (8.5-10.5) L 12/14/21 05:20 Total Bilirubin 0.7 mg/dL (0.15-1.2) 12/13/21 23:48 AST 79 U/L (0-32) H 12/13/21 23:48 ALT 33 U/L (0-33) 12/13/21 23:48 Alkaline Phosphatase 198 IU/L (35-105) H 12/13/21 23:48 Total Protein 9.1 g/dL (6.6-8.7) H 12/13/21 23:48 Albumin 4.5 g/dL (3.5-5.2) 12/13/21 23:48 Globulin 4.6 g/dL (1.3-4.6) 12/13/21 23:48 Lipase 29 U/L (13-60) 12/13/21 23:48 TSH 0.03 uIU/mL (0.27-4.20) L 12/13/21 23:48 Free T4 1.33 ng/dL (0.82-1.77) 12/13/21 23:48 Salicylates < 0.3 mg/dL (3-10) L 12/13/21 23:48 Urine Opiates Screen Negative ng/mL (Negative) 12/14/21 00:45 Acetaminophen < 5.0 ug/mL (10-30) L 12/13/21 23:48 Ur Barbiturates Screen Negative ng/mL (Negative) 12/14/21 00:45 Ur Phencyclidine Scrn Negative ng/mL (Negative) 12/14/21 00:45 Ur Amphetamines Screen Negative ng/mL (Negative) 12/14/21 00:45 U Benzodiazepines Scrn Negative ng/mL (Negative) 12/14/21 00:45 Urine Cocaine Screen Negative ng/mL (Negative) 12/14/21 00:45 U Marijuana (THC) Screen Negative ng/mL (Negative) 12/14/21 00:45 SARS-CoV-2 Ag (Rapid) Negative (Negative) 12/14/21 07:35 Discharge Plan Discharge Patient Disposition: Admitted As Inpatient Admit Provider: Roel Colin Clinical Impression: Suicidal ideation Condition: Stable Coding Level of Care Code 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 [employer] Fwd Exam Comprehensive Documented by User: Jose Gillis Madi, 12/14/21 06:32 HPI - Psych General: Chief Complaint: Psychiatric Symptoms Stated Complaint: SI Time Seen by Provider: 12/13/21 22:44 PFSH ED PFSH: Medical History Abdominal pain Adjustment reaction with anxiety and depression Alcohol use disorder Anemia Anxiety with depression Bipolar disorder Borderline personality disorder Cholelithiasis Congestive heart failure Cystitis Diabetes mellitus, type II Drug-induced psychotic disorder FH: breast cancer in first degree relative H/O chronic hepatitis Hepatic encephalopathy Hypertension Hypertension screen Hypothyroid Meningitis Metabolic encephalopathy Methamphetamine abuse Muscle spasm Obstructive sleep apnea Opiate dependence 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 Pneumonia Polysubstance abuse Polysubstance abuse Respiratory failure with hypoxia Sepsis Staphylococcus aureus bacteremia Vitamin D deficiency Yeast dermatitis Surgical History History of Social History Smoking and tobacco status: never smoked Second hand smoke exposure: No Smoking risk assessment/counseling performed?: No Alcohol intake: never Desire information about alcohol rehabilitation?: No Counseling given: No Desire information about substance/drug rehabilitation?: No Counseling given: No Course Vital Signs: Vital signs: Vital Signs Temperature 98.7 F 12/14/21 14:00 Pulse Rate 110 H 12/14/21 14:00 Respiratory Rate 22 H 12/14/21 14:00 Blood Pressure 169/95 12/14/21 14:00 Pulse Oximetry 97 12/14/21 14:00 MDM - Psych Medical Decision Making This patient was originally seen by Mr. Charles PA-C.? I agree with his history, evaluation, and treatment. This patient complained of diffuse belly pain, vomiting. Her potassium was 2.9. With oral replacement, it is on its way up. Its up to 3.2. She has received IV hydration. CT of the belly does not show any acute process. Her mother had come in and wrote an affidavit stating that she had made statements of wanting to . She was placed under 96-hour hold because of this. Nausea is more controlled now after IV Haldol. As she is medically cleared, she will be legible for admission to the [facility]. I spoke with the psychiatrist on-call, who is willing to admit. Lab Data : 12/14/21 00:57 12/14/21 05:20 Radiology Impressions Abdomen/Pelvis CT 12/14/21 02:14 IMPRESSION: 1. Probable gallbladder sludge or tiny gallstones without evidence of cholecystitis. New 2. Punctate nonobstructing right renal calculus 2. Hypoattenuation cystic mass within the left ovary measuring up to 4.1 cm likely representing a benign functional ovarian cyst. 3. Normal appendix 4. Stable deformities of L4-S1 vertebral bodies Laboratory Results WBC 5.8 10^3/uL (4.0-10.0) 12/14/21 00:57 Corrected WBC Cancelled 12/13/21 23:48 RBC 5.18 10^6/uL (4.1-5.3) 12/14/21 00:57 Hgb 11.0 g/dL (11.5-15.3) L 12/14/21 00:57 Hct 38.3 % (37.0-47.0) 12/14/21 00:57 MCV 73.9 fl (81-99) L 12/14/21 00:57 MCH 21.2 pg (28.0-34.0) L 12/14/21 00:57 MCHC 28.7 g/dL (30.0-36.0) L 12/14/21 00:57 RDW 20.1 % (12.1-15.1) H 12/14/21 00:57 Plt Count 113 10^3/cmm (130-400) L 12/14/21 00:57 MPV 9.0 fL (7.4-10.4) 12/14/21 00:57 Gran % Cancelled 12/13/21 23:48 Neut % (Auto) 33.5 % 12/14/21 00:57 Lymph % (Auto) 53.1 % 12/14/21 00:57 Ponce % (Auto) 12.8 % 12/14/21 00:57 Eos % (Auto) 0.2 % 12/14/21 00:57 Baso % (Auto) 0.2 % 12/14/21 00:57 Neut # (Auto) 1.93 10^3/uL (1.8-7.7) 12/14/21 00:57 Lymph # (Auto) 3.1 10^3/uL (0.8-4.8) 12/14/21 00:57 Ponce # (Auto) 0.7 10^3/uL (0.2-0.9) 12/14/21 00:57 Eos # (Auto) 0.0 10^3/uL (0.0-0.8) 12/14/21 00:57 Baso # (Auto) 0.0 10^3/uL (0.0-0.1) 12/14/21 00:57 Absolute Gran (auto) Cancelled 12/13/21 23:48 Nucleated RBC % (auto) 0 % 12/14/21 00:57 Nucleated RBCs # 0.0 /100WBC 12/14/21 00:57 Sodium 142 mmol/L (136-145) 12/14/21 05:20 Potassium 3.2 mmol/L (3.5-5.1) L 12/14/21 05:20 Chloride 111 mmol/L (98-107) H 12/14/21 05:20 Carbon Dioxide 17 mmol/L (22-29) L 12/14/21 05:20 Anion Gap 17.2 (5-19) 12/14/21 05:20 BUN 7 mg/dL (6-20) 12/14/21 05:20 Creatinine 0.5 mg/dL (0.5-0.9) 12/14/21 05:20 GFR Calculation 136.0 mL/min (90-130) H 12/14/21 05:20 Glucose 158 mg/dL (65-115) H 12/14/21 05:20 Calculated Osmolality 295 mOsm/kg (285-295) 12/14/21 05:20 Calcium 7.9 mg/dL (8.5-10.5) L 12/14/21 05:20 Total Bilirubin 0.7 mg/dL (0.15-1.2) 12/13/21 23:48 AST 79 U/L (0-32) H 12/13/21 23:48 ALT 33 U/L (0-33) 12/13/21 23:48 Alkaline Phosphatase 198 IU/L (35-105) H 12/13/21 23:48 Total Protein 9.1 g/dL (6.6-8.7) H 12/13/21 23:48 Albumin 4.5 g/dL (3.5-5.2) 12/13/21 23:48 Globulin 4.6 g/dL (1.3-4.6) 05 23:48 Lipase 29 U/L (13-60) 12/13/21 23:48 TSH 0.03 uIU/mL (0.27-4.20) L 12/13/21 23:48 Free T4 1.33 ng/dL (0.82-1.77) 12/13/21 23:48 Salicylates < 0.3 mg/dL (3-10) L 12/13/21 23:48 Urine Opiates Screen Negative ng/mL (Negative) 12/14/21 00:45 Acetaminophen < 5.0 ug/mL (10-30) L 12/13/21 23:48 Ur Barbiturates Screen Negative ng/mL (Negative) 12/14/21 00:45 Ur Phencyclidine Scrn Negative ng/mL (Negative) 12/14/21 00:45 Ur Amphetamines Screen Negative ng/mL (Negative) 12/14/21 00:45 U Benzodiazepines Scrn Negative ng/mL (Negative) 12/14/21 00:45 Urine Cocaine Screen Negative ng/mL (Negative) 12/14/21 00:45 U Marijuana (THC) Screen Negative ng/mL (Negative) 12/14/21 00:45 SARS-CoV-2 Ag (Rapid) Negative (Negative) 12/14/21 07:35 Discharge Plan Discharge Patient Disposition: Admitted As Inpatient Admit Provider: Roel Colin Clinical Impression: Suicidal ideation Condition: Stable Coding 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
[2021-12-14] VITALS (7 sets, daily range): BP systolic 126–175; BP diastolic 51–95; PULSE 66–110; RESP 17–22; TEMP 36.5–37.1; O2SAT 96–100
[2021-12-14] MEDS: ondansetron 2 mg/ML SDV 2 mL 4 MG IM
[2021-12-14] MEDS: LORazepam 2 mg/mL INJ 1 mL 1 MG IM
--- NOTE | 2021-12-14 00:05 | PC.NURSE ---
pt refusing covid swab
[2021-12-14 00:22] LABS: Alanine Aminotransferase 33 U/L (0-33); Albumin Level 4.5 g/dL (3.5-5.2); Alkaline Phosphatase 198 IU/L (35-105); Anion Gap 20.9 (5-19); Aspartate Amino Transferase 79 U/L (0-32); Blood Urea Nitrogen 7 mg/dL (6-20); Calcium 8.4 mg/dL (8.5-10.5); Carbon Dioxide 16 mmol/L (22-29); Chloride 110 mmol/L (98-107); Free T4 Free Thyroxine 1.33 ng/dL (0.82-1.77); Globulin 4.6 g/dL (1.3-4.6); Glucose 138 mg/dL (65-115); Lipase 29 U/L (13-60); Osmolality Calculated 298 mOsm/kg (285-295); Sodium 144 mmol/L (136-145); Thyroid Stimulating Hormone 0.03 uIU/mL (0.27-4.20); Total Bilirubin 0.7 mg/dL (0.15-1.2); Total Protein 9.1 g/dL (6.6-8.7)
[2021-12-14 00:24] LABS: Acetaminophen < 5.0 ug/mL (10-30); Salicylate < 0.3 mg/dL (3-10)
[2021-12-14 00:25] LABS: Potassium 2.9 mmol/L (3.5-5.1)
[2021-12-14 01:02] LABS: Basophils % 0.2 %; Eosinophils % 0.2 %; Hematocrit 38.3 % (37.0-47.0); Lymphocytes # 3.1 10^3/uL (0.8-4.8); Lymphocytes % 53.1 %; Mean Corpuscular HGB Conc 28.7 g/dL (30.0-36.0); Mean Corpuscular Hemoglobin 21.2 pg (28.0-34.0); Mean Corpuscular Volume 73.9 fl (81-99); Monocytes # 0.7 10^3/uL (0.2-0.9); Monocytes % 12.8 %; Neutrophils # 1.93 10^3/uL (1.8-7.7); Neutrophils % 33.5 %; Nucleated Red Blood Cells % 0 %; Platelet Count 113 10^3/cmm (130-400); Red Blood Count 5.18 10^6/uL (4.1-5.3); Red Cell Distribution Width 20.1 % (12.1-15.1); White Blood Count 5.8 10^3/uL (4.0-10.0)
[2021-12-14 01:31] LABS: Amphetamines Screen Urine Negative (Negative); Barbiturates Screen Urine Negative (Negative); Benzodiazepines Screen Urine Negative (Negative); Cocaine Screen Urine Negative (Negative); Opiate Screen Urine Negative (Negative); PCP Screen Urine Negative (Negative); THC Screen Urine Negative (Negative)
[2021-12-14] MEDS: sodium chloride 0.9% 1,000 ML 999 ML IV (02:03)
[2021-12-14] MEDS: metoclopramide 5 mg/mL SDV 2 mL 10 MG IVP (02:03)
--- NOTE | 2021-12-14 02:03 | PC.NURSE ---
informed pt that she would not get anything else to drink due to vomiting, potossium will be given when pt is no longer vomiting. pt refusing to wear bp or pulse ox
--- NOTE | 2021-12-14 02:14 | CTR_ITS ---
PROCEDURE INFORMATION: Exam: CT Abdomen And Pelvis Without Contrast Exam date and time: 12/14/2021 2:55 AM Age: 41 years old Clinical indication: Nausea and vomiting; Abdominal pain; Generalized; Additional info: Abdominal pain, n/v TECHNIQUE: Imaging protocol: Computed tomography of the abdomen and pelvis without contrast. Radiation optimization: All CT scans at this facility use at least one of these dose optimization techniques: automated exposure control; mA and/or kV adjustment per patient size (includes targeted exams where dose is matched to clinical indication); or iterative reconstruction. COMPARISON: CT abdomen pelvis wo con [id number] 07/28/2021 4:52 PM RADIATION DOSE METRICS: Total DLP (mGy-cm): 1346.48 FINDINGS: Liver: Normal. No mass. Gallbladder and bile ducts: Hyperdensities are seen in the dependent portion of the gallbladder compatible with gallbladder sludge or tiny gallstones. Pancreas: Normal. No ductal dilation. Spleen: Normal. No splenomegaly. Adrenal glands: Normal. No mass. Kidneys and ureters: There is a 2 mm nonobstructing right renal calculus present. Stomach and bowel: Unremarkable. No obstruction. No mucosal thickening. Appendix: The appendix is visualized and is normal in configuration. Intraperitoneal space: Unremarkable. No free air. No significant fluid collection. Vasculature: Unremarkable. No abdominal aortic aneurysm. Lymph nodes: Unremarkable. No enlarged lymph nodes. Urinary bladder: Unremarkable as visualized. Reproductive: There is a 3.9 x 3.7 x 4.1 cm hypoattenuation mass seen within the left ovary likely representing a benign or functional ovarian cyst. Bones/joints: There are deformities of the L4-S1 vertebral bodies with severe loss of disc height and vacuum disc phenomenon present. These findings appear similar to those described on MRI the lumbar spine dated 07/30/2021. Soft tissues: Unremarkable. CT/CT abdomen pelvis wo con [id number] IMPRESSION: 1. Probable gallbladder sludge or tiny gallstones without evidence of cholecystitis. New 2. Punctate nonobstructing right renal calculus 2. Hypoattenuation cystic mass within the left ovary measuring up to 4.1 cm likely representing a benign functional ovarian cyst. 3. Normal appendix 4. Stable deformities of L4-S1 vertebral bodies
--- NOTE | 2021-12-14 02:39 | PC.NURSE ---
pt resting quietly no distress noted at this time
[2021-12-14] MEDS: potassium chloride oral liq 20 mEq/15 mL UDC 40 MEQ PO (03:23)
[2021-12-14] MEDS: LORazepam 2 mg/mL INJ 1 mL 1 MG IVP (04:08)
[2021-12-14] MEDS: haloperidol inj 5 mg/mL INJ 1 mL IVP (04:46)
[2021-12-14 05:50] LABS: Anion Gap 17.2 (5-19); Blood Urea Nitrogen 7 mg/dL (6-20); Calcium 7.9 mg/dL (8.5-10.5); Carbon Dioxide 17 mmol/L (22-29); Chloride 111 mmol/L (98-107); Glucose 158 mg/dL (65-115); Osmolality Calculated 295 mOsm/kg (285-295); Potassium 3.2 mmol/L (3.5-5.1); Sodium 142 mmol/L (136-145)
[2021-12-14 08:06] LABS: SARS Covid-2 Antigen Negative (Negative)
[2021-12-14] MEDS: thiamine 100 mg Tablet PO (09:10)
[2021-12-14] MEDS: folic acid 1 mg Tablet PO (09:10)
[2021-12-14] MEDS: multivitamin therapeutic Tablet 1 TAB PO (09:10)
[2021-12-14] MEDS: hyDROXYzine 25 mg Capsule 50 MG PO (09:10)
--- NOTE | 2021-12-14 09:11 | PC.NURSE ---
ADMITTED TO NPU AT 0810 VIA WHEELCHAIR AND SECURITY. STATES SHE IS HERE DUE TO HAVING BACK PAIN AND I STARTED DRINKING TO HELP THE PAIN. THEN STARTED HAVING THOUGHTS OF SUICIDE. REPORTS SHE HAS HAD INCREASED DEPRESSION AND PROZAC IS NOT WORKING. HERE ON A 96 HOUR HOLD THAT IS UP ON 12/03/22 AT 2220. DENIES SI/HI AND AVH AT THIS TIME. REPORTS SHE RECEIVES PROZAC, PROPANOLOL, SEROQUEL AND PERCOCET AT [facility]. CALLED AND LEFT MESSAGE TO CALL THIS RN BACK TO VERIFY MEDICATIONS. HAS ALLERGIES TO IODINE AND SULFA. ORIENTATED TO UNIT. ALL QUESTIONS ANSWERED AND SUPPORT VOICED.
[2021-12-14] MEDS: acetaminophen 325 mg Tablet 650 MG PO (09:31)
[2021-12-14] MEDS: OLANZapine 5 mg ODT PO ×2 (10:22→16:53)
[2021-12-14 11:25] LABS: Glucose Point of Care 168 mg/dL (70-110)
--- NOTE | 2021-12-14 13:44 | W.PM.NPUH&PS ---
Providers/Chief Complaint Admitting Physician: Roel Colin MD Primary Care Provider: FARHAT Rivera Chief Complaint: My Prozac is not working anymore. HPI NPU History of Present Illness Gina Jay is a 41 year old female admitted through our emergency department with the following report: Patient is a 41-year-old female comes to the ED for mental health evaluation.? Patient says she takes Prozac 40 mg daily for her depression.? She thinks that the medication is not working.? She is having increased depression but denies any SI.? Patient is complaining of having some nausea, vomiting and abdominal pain that started today.? Her abdominal pain is located in the periumbilical region.? Abdominal pain rated 8 out of 10.? Denies any fever, chills, dysuria, hematuria, diarrhea, constipation or blood in stool.? When I asked patient about suicidal thoughts she was slow to give me an answer. Mother brought patient in and filled out affidavit.? Mother says patient has been talking about increased depression and has expressed thoughts of suicide verbally to mother multiple times.? She is said directly to mother that she just wants to and mother is worried that she is a serious harm to herself. Associated symptoms: Reports depression and suicidal ideation; She was admitted to the neuropsychiatry unit for definitive treatment of these issues. She says that she has been more depressed for the last few months. She feels like her Prozac is no longer working like it did. I have also had many deaths in her family. Her this last year. Her daughter also lost a baby at which was surprised. It strangulated on his umbilical cord. She also lost both of her grandmothers and an uncle. She denies having any suicidal ideation but her depression has been bad. She says that anxiety is also a big problem for her. She cannot go shopping because she gets overwhelmed very easily. She worries too much about things. She has panic attacks often. She used to be OCD about several things but since she has been disabled she cannot take care of them and has given up. She has nightmares most nights and would like to take something for nightmares. These nightmares frequently wake her up and cause panic attacks but she frequently does not remember them. She assumes they are from her childhood trauma. She has been diagnosed with borderline personality disorder as well as bipolar disorder. She does not have times where she is up for a week at a time and full of energy and not need sleep. She does not think that she has bipolar. She has a long history of taking bad boyfriends. She has had a very tough life. She used to use drugs but has been clean for the last couple of years. She has been disabled for several years because she injured her back. She has difficulty walking. She said that Prozac 20 mg helped some but it stopped working and Prozac 40 mg worked well for depression and anxiety for several months. She would like to try increasing to 60 mg. 04/2020? Discharge Diagnosis (1) 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: ?Status:?Acute (2) Alcohol use disorder: ?Status:?Acute (3) Anxiety with depression: ?Status:?Acute (4) Altered mental status: ?Status:?Acute SI? Brief History: History of Present Illness Gina Jay is a 39 year old female presents the emergency room with complaint of hitting her head 3 days ago.? Since then she has had a difficult time with random movements.? She appears to be acutely under the influence of methamphetamine based on her behavior in the emergency room.? She denies suicidal or homicidal ideation.? There is no evidence of any trauma about the head.? She does state that she took another patient's ADHD about a third she thinks it with Concerta, she states this was 2 days ago.? The chances are that she is heavy consumption of methamphetamine in that she has pronounced choreoathetoid movements that look very similar to tardive dyskinesia derivative of old-line antipsychotics.? She is coming off the drug now she can hardly stay awake. Hospital Course The patient presented to the emergency room with methamphetamine use, reporting head trauma, and endorsing a recent intake of substances, with altered mental status. She was admitted to the neuropsychiatric unit for definitive treatment of those issues. She was restarted on her home medications, except for the Ativan. Her potassium was low and she was noted to have a UTI, so potassium replacement was started and an antibiotic was started. She had modest improvement but was very resistant to definitive treatment for her addiction issues. Ultimately, she was a voluntary patient and decided she was ready to leave. During the hospitalization, the patient had routine laboratory studies which were within normal limits, except for a few outliers. Additionally, the patient had a general medical evaluation which was within normal limits and revealed no new acute processes, outside of those mentioned above. ? Discharge Summary At the time of discharge the patient denied all lethality, was absent psychosis, and mood and anxiety were well managed. The patient was resistant to committing to sober living treatment. The patient was evaluated and deemed to be absent credible lethality, and had achieved the maximum benefit from an inpatient hospitalization, and so she was discharged. Discharge Patient Disposition: Home Condition: Stable Prescriptions: New ? divalproex 250 mg Tablet,Delayed Release (Dr/Ec) ?? 250 mg PO BID 30 Days Qty: 60 RF: 1 ? nitrofurantoin monohyd/m-cryst 100 mg Capsule ?? 100 mg PO BID 3 Days Qty: 5 RF: 0 ? potassium chloride 10 mEq Tablet Extended Release ?? 10 meq PO DAILY 30 Days Qty: 30 RF: 1 ? trazodone 50 mg Tablet ?? 50 mg PO BEDTIME PRN (Reason: Sleep) 30 Days Qty: 30 RF: 1 Continued ? (DME) blood-glucose meter? Kit ?? See Rx Instructions? .ROUTE .MEDSUPPLY Qty: 1 RF: 5 ? buprenorphine-naloxone 8-2 mg film ?? 1 film sublingual TID RF: 0 ? furosemide 20 mg tablet ?? 20 mg PO QAM Qty: 30 RF: 2 ? Flonase Allergy Relief 50 mcg/actuation [place],Suspension ?? 2 spray INTRANASAL DAILY RF: 0 ? metformin 500 mg tablet ?? 500 mg PO BID RF: 0 ? levothyroxine 100 mcg tablet ?? 100 mcg PO DAILY RF: 0 ? aspirin 325 mg Tablet ?? 325 mg PO DAILY RF: 0 ? albuterol sulfate [ProAir HFA] 90 mcg/actuation HFA aerosol inhaler ?? 1 - 2 inh INHALATION Q6H PRN (Reason: Shortness Of Breath) RF: 0 ? fluoxetine 20 mg Capsule ?? 60 mg PO DAILY 30 Days Qty: 90 RF: 1 ? propranolol 40 mg tablet ?? 40 mg PO BID 30 Days Qty: 60 RF: 1 ? Januvia 100 mg tablet ?? 100 mg PO DAILY 30 Days Qty: 30 RF: 0 ? ropinirole [Requip] 0.25 mg tablet ?? 0.25 mg PO DAILY 30 Days Qty: 30 RF: 0 Discontinued ? alprazolam 0.5 mg tablet ?? 0.5 mg PO BID PRN (Reason: anxiety) 30 Days Qty: 60 RF: 0 Meds NPU Home Medications Medication Instructions Recorded Confirmed Last Taken Type blood sugar diagnostic #100 ea 10/14/20 12/14/21 Unknown Rx sennosides 8.6 mg tablet (Senna 8.6 mg PO DAILY #30 tab 03/30/21 11/03/21 Unknown Rx Lax) potassium chloride 10 mEq 10 meq PO DAILY cap 05/26/21 11/03/21 Unknown History capsule,extended release vitamin with calcium 1 tab PO DAILY tab 05/26/21 11/03/21 Unknown History no.72-iron 27 mg-folic acid 1 mg tablet thiamine HCl (vitamin B1) 100 mg 100 mg PO DAILY tab 05/26/21 11/03/21 Unknown History tablet levothyroxine 100 mcg tablet 100 mcg PO DAILY #30 tab 06/19/21 11/03/21 Unknown Rx propranolol 40 mg tablet 40 mg PO BID #30 tab 06/19/21 12/14/21 Unknown Rx albuterol sulfate 90 mcg/actuation 2 puff INHALATION QID PRN 07/28/21 11/03/21 Unknown History aerosol inhaler insulin detemir U-100 100 unit/mL 10 unit (0.1 mL) SUBCUT Q12H #10 ml 08/13/21 11/03/21 Unknown Rx subcutaneous solution (Levemir U-100 Insulin) insulin lispro 100 unit/mL See Rx Instructions .ROUTE 08/13/21 11/03/21 Unknown Rx subcutaneous solution (Humalog .COMPLEX #10 ml U-100 Insulin) lactulose 20 gram/30 mL oral 20 g (30 mL) PO BID #1200 ml 08/13/21 11/03/21 Unknown Rx solution vancomycin 1.5 gram/300 mL-water 1,500 mg (300 mL) CONTINUOUS IV 08/13/21 11/03/21 Unknown Rx for injection (PEG,[place]) IV INFUSION Q12H #1800 ml piggyback pen needle, diabetic 29 gauge x See Rx Instructions .ROUTE 08/18/21 11/03/21 Unknown Rx 1/2 (Comfort EZ Pen [place]) .COMPLEX #100 ea cyclobenzaprine 5 mg tablet 5 mg PO BID PRN 30 Days #60 tab 10/14/21 11/03/21 Unknown Rx furosemide 20 mg tablet 20 mg PO DAILY 10/16/21 11/03/21 Unknown History guaifenesin 600 mg tablet, 600 mg PO BID PRN #14 tab 10/23/21 11/03/21 Unknown Rx extended release 12 hr (Mucinex) oxycodone 5 mg tablet 5 mg PO Q4H PRN 7 Days #40 tab 10/27/21 11/03/21 Unknown Rx hydrocodone 10 mg-acetaminophen 1 tab PO Q4H PRN 5 Days #40 tab 12/01/21 Unknown Rx 325 mg tablet insulin aspart U-100 100 unit/mL 10 unit SUBCUT TID 12/14/21 12/14/21 Unknown History (3 mL) subcutaneous pen (Novolog Flexpen U-100 Insulin aspart) insulin glargine 100 unit/mL 20 unit SUBCUT DAILY 12/14/21 12/14/21 Unknown History subcutaneous solution (Lantus U-100 Insulin) oxycodone-acetaminophen 10 mg-325 1 - 2 tab PO Q6H PRN 12/14/21 12/14/21 Unknown History mg tablet Allergies Allergy/AdvReac Type Severity Reaction Status Date / Time iodine Allergy Mild unknown Verified 11/03/21 14:40 Sulfa (Sulfonamide Allergy Mild rash Verified 11/03/21 14:40 Antibiotics) PFSH NPU PFSH: Medical History Abdominal pain Adjustment reaction with anxiety and depression Alcohol use disorder Anemia Anxiety with depression Bipolar disorder Borderline personality disorder Cholelithiasis Congestive heart failure Cystitis Diabetes mellitus, type II Drug-induced psychotic disorder FH: breast cancer in first degree relative H/O chronic hepatitis Hepatic encephalopathy Hypertension Hypertension screen Hypothyroid Meningitis Metabolic encephalopathy Methamphetamine abuse Muscle spasm Obstructive sleep apnea Opiate dependence 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 Pneumonia Polysubstance abuse Polysubstance abuse Respiratory failure with hypoxia Sepsis Staphylococcus aureus bacteremia Vitamin D deficiency Yeast dermatitis Surgical History History of Social History Smoking and tobacco status: never smoked Second hand smoke exposure: No Smoking risk assessment/counseling performed?: No Alcohol intake: never Desire information about alcohol rehabilitation?: No Counseling given: No Desire information about substance/drug rehabilitation?: No Counseling given: No Mental Status Exam MSE Comments: This is a 41-year-old obese female who appears older than her stated age and is in no acute distress. She is dressed in hospital scrubs with fair grooming. Eye contact is good. psychomotor activity normal. Speech is at a regular rate and rhythm, normal volume, good articulation, not pressured. Alert, oriented X3 Attention and concentration appears to be normal. Memory is intact Mood is depressed. Affect is mildly dysphoric. Thought process is logical and goal-directed. Thought content: Denies auditory and visual hallucinations. No delusions or paranoia are noted. No current suicidal ideation. He denies homicidal ideation. Fund of knowledge is probably average. Insight and judgment appear to be fair. Impulse control is fair. Vitals/I&O/Wt Last Vital Signs Temp 98 F 12/14/21 08:12 Pulse 66 12/14/21 08:12 Resp 18 12/14/21 08:12 BP 126/51 12/14/21 08:12 Pulse Ox 96 12/14/21 08:12 Weight last 48 hrs Weight 95.254 kg Data NPU : 12/14/21 00:57 12/14/21 05:20 A&P Assessment and plan (1) Borderline personality disorder: Status: Acute (2) PTSD (post-traumatic stress disorder): Status: Acute (3) Anxiety: Status: Acute (4) Major depressive disorder: Status: Acute Plan This is a 41-year-old female with a history of substance abuse, borderline personality disorder PTSD, anxiety and depression who comes in with worsening depression requesting treatment plan: 1. Continue current medication. Increase Prozac to 60 mg. Add prazosin 1 mg at bedtime. 2. Continue every 15 minute checks for safety. 3. Encourage individual, group and milieu therapies. 4. Encourage sober living treatment after discharge at the highest level of care to which she is willing to commit. 5. We will monitor for safety for herself in the community prior to discharge. Involuntary Hold Information 96 Hour Hold: 96 Hour Involuntary Admission: Yes 96 Hour Hold Ending Date: 12/21/21 96 Hour Hold Ending Time: 22:20 Attestations NPU Medical Necessity Statement*: Inpatient hospitalization is medically necessary and the clinically appropriate intervention at this time. We will initiate medications and make changes as indicated. She will be in the hospital for over 2 midnights. Likely length of stay 4-6 days Coding Level of Care Code Acute [employer] Diagnoses Borderline personality disorder F60.3 PTSD (post-traumatic stress disorder) F43.10 Anxiety F41.9 Major depressive disorder F32.9
--- NOTE | 2021-12-14 14:59 | PC.NURSE ---
HOME MEDICATIONS SPOKE WITH [facility] AND CONFIRMED THE FOLLOWING MEDICATIONS. OXYCODONE 10/325MG PO Q 4 HOURS TAKE 1-2 TABS, LANTUS 20 UNITS SQ DAILY, NOVOLOG 10 UNITS TID. UNABLE TO CONFIRM PROPANOLOL, PROZAC OR SEROQUEL. PHARMACY STATES SHE HAS NOT FILLED ROUTINE MEDICATIONS SINCE AUGUST.
[2021-12-14 16:39] LABS: Glucose Point of Care 159 mg/dL (70-110)
--- NOTE | 2021-12-14 16:59 | PC.NURSE ---
PRN ZYPREXA ZYDIS 5 MG GIVEN PO PER PT C/O SHAKING INSIDE REQUESTING MED BY NAME. WILL CONT TO MONITOR
[2021-12-14] MEDS: propranolol 20 mg Tablet PO (19:47)
[2021-12-14] MEDS: quetiapine 25 mg Tablet 50 MG PO (19:47)
[2021-12-14] MEDS: HYDROcodone-acetaminophen 10-325 mg Tablet 1 TAB PO (19:51)
[2021-12-14 19:58] LABS: Glucose Point of Care 158 mg/dL (70-110)
[2021-12-15 06:00] VITALS: BP 130/65; PULSE 78; RESP 18; TEMP 37.1; O2SAT 98
[2021-12-15 06:41] LABS: Glucose Point of Care 154 mg/dL (70-110)
[2021-12-15] MEDS: fluoxetine 20 mg Capsule 60 MG PO (09:15)
[2021-12-15] MEDS: propranolol 20 mg Tablet 40 MG PO ×2 (09:16→14:28)
[2021-12-15] MEDS: HYDROcodone-acetaminophen 10-325 mg Tablet 1 TAB PO ×4 (09:16→21:37)
[2021-12-15] MEDS: thiamine 100 mg Tablet PO (09:17)
[2021-12-15] MEDS: multivitamin therapeutic Tablet 1 TAB PO (09:17)
[2021-12-15] MEDS: folic acid 1 mg Tablet PO (09:17)
[2021-12-15 11:12] LABS: Glucose Point of Care 169 mg/dL (70-110)
[2021-12-15 14:00] VITALS: BP 127/74; PULSE 78; RESP 13; TEMP 37; O2SAT 98
[2021-12-15 16:02] LABS: Glucose Point of Care 127 mg/dL (70-110)
[2021-12-15 19:58] VITALS: BP 142/91; PULSE 72; RESP 16; TEMP 36.6; O2SAT 100
[2021-12-15 20:11] LABS: Glucose Point of Care 157 mg/dL (70-110)
[2021-12-15] MEDS: quetiapine 100 mg Tablet PO (20:23)
[2021-12-15] MEDS: prazosin 1 mg Capsule PO (20:23)
[2021-12-16 06:00] VITALS: BP 112/73; PULSE 70; RESP 18; TEMP 36.7; O2SAT 96
[2021-12-16 06:35] LABS: Glucose Point of Care 109 mg/dL (70-110)
[2021-12-16] MEDS: HYDROcodone-acetaminophen 10-325 mg Tablet 1 TAB PO ×2 (06:56→11:03)
--- NOTE | 2021-12-16 08:35 | W.PM.NPUDCS ---
Diagnoses at Discharge Discharge Diagnosis (1) Borderline personality disorder: Status: Acute (2) PTSD (post-traumatic stress disorder): Status: Acute (3) Anxiety: Status: Acute (4) Major depressive disorder: Status: Acute Reason for Visit Reason for Visit: My Prozac is not working anymore. Brief History: History of Present Illness Gina Jay is a 41 year old female admitted through our emergency department with the following report: Patient is a 41-year-old female comes to the ED for mental health evaluation.? Patient says she takes Prozac 40 mg daily for her depression.? She thinks that the medication is not working.? She is having increased depression but denies any SI.? Patient is complaining of having some nausea, vomiting and abdominal pain that started today.? Her abdominal pain is located in the periumbilical region.? Abdominal pain rated 8 out of 10.? Denies any fever, chills, dysuria, hematuria, diarrhea, constipation or blood in stool.? When I asked patient about suicidal thoughts she was slow to give me an answer. Mother brought patient in and filled out affidavit.? Mother says patient has been talking about increased depression and has expressed thoughts of suicide verbally to mother multiple times.? She is said directly to mother that she just wants to and mother is worried that she is a serious harm to herself. Associated symptoms: Reports depression and suicidal ideation; She was admitted to the neuropsychiatry unit for definitive treatment of these issues.? She says that she has been more depressed for the last few months.? She feels like her Prozac is no longer working like it did.? I have also had many deaths in her family.? Her this last year.? Her daughter also lost a baby at which was surprised.? It strangulated on his umbilical cord.? She also lost both of her grandmothers and an uncle.? She denies having any suicidal ideation but her depression has been bad.? She says that anxiety is also a big problem for her.? She cannot go shopping because she gets overwhelmed very easily.? She worries too much about things.? She has panic attacks often.? She used to be OCD about several things but since she has been disabled she cannot take care of them and has given up.? She has nightmares most nights and would like to take something for nightmares.? These nightmares frequently wake her up and cause panic attacks but she frequently does not remember them.? She assumes they are from her childhood trauma.? She has been diagnosed with borderline personality disorder as well as bipolar disorder.? She does not have times where she is up for a week at a time and full of energy and not need sleep.? She does not think that she has bipolar.? She has a long history of taking bad boyfriends.? She has had a very tough life.? She used to use drugs but has been clean for the last couple of years.? She has been disabled for several years because she injured her back.? She has difficulty walking.? She said that Prozac 20 mg helped some but it stopped working and Prozac 40 mg worked well for depression and anxiety for several months.? She would like to try increasing to 60 mg. Hospital Course Hospital Course She slowly acclimated to the individual, group and milieu therapies provided. She was continued on her outpatient medications except Prozac was increased to 60 mg and prazosin 1 mg was added for nightmares. She tolerated these doses and showed steady improvement during her stay. She was able to contract for safety outside hospital prior to discharge. During the hospitalization, patient had routine laboratory studies which were within normal limits except for few outliers. Additionally there was a general medical evaluation which was also within normal limits and revealed no new acute processes. Discharge Summary: At the time of discharge, lethality was denied.. Mood and anxiety were well managed. Patient endorsed a plan to follow-up with the aftercare recommendations of the treatment team. Patient was evaluated and deemed to be absent credible lethality, and had achieved the maximum benefit from an inpatient hospitalization, so was discharged. Involuntary Hold Information 96 Hour Hold: 96 Hour Involuntary Admission: Yes 96 Hour Hold Ending Date: 12/21/21 96 Hour Hold Ending Time: 22:20 Mental Status Exam MSE Comments: This is a 41-year-old obese female who appears older than her stated age and is in no acute distress. She is dressed in hospital scrubs with fair grooming. Eye contact is good. psychomotor activity normal. Speech is at a regular rate and rhythm, normal volume, good articulation, not pressured. Alert, oriented X3 Attention and concentration appears to be normal. Memory is intact Mood is depressed but better. Affect is very mildly dysphoric. Thought process is logical and goal-directed. Thought content: Denies auditory and visual hallucinations. No delusions or paranoia are noted. No current suicidal ideation. He denies homicidal ideation. Fund of knowledge is probably average. Insight and judgment appear to be fair. Impulse control is fair. Cognition: Patient Appearance: Appropriate Level of Consciousness: Awake and Alert Patient Cognition Impaired: No Ability to Follow Directions: Fair Patient Orientation (long list): Person, Place, Name, Age and Birthday Comprehension Ability: No Impairment Hallucination Type: None Delusion Description: Not Present Thought Process: Appropriate Affect: Affect Description: Calm Behavior: Patient Behavior: Appropriate Speech Pattern: Appropriate Discharge Data Studies Completed and Pending: Completed Studies During Hospitalization Category Date Time Status CT abdomen pelvis wo con [id number] Urge nt Cat Scan 12/14/21 02:14 Completed Radiology Impressions Abdomen/Pelvis CT 12/14/21 02:14 IMPRESSION: 1. Probable gallbladder sludge or tiny gallstones without evidence of cholecystitis. New 2. Punctate nonobstructing right renal calculus 2. Hypoattenuation cystic mass within the left ovary measuring up to 4.1 cm likely representing a benign functional ovarian cyst. 3. Normal appendix 4. Stable deformities of L4-S1 vertebral bodies Laboratory Results WBC 5.8 10^3/uL (4.0- 10.0) 12/14/21 00:57 Corrected WBC Cancelled 12/13/21 23:48 RBC 5.18 10^6/uL (4.1 -5.3) 12/14/21 00:57 Hgb 11.0 g/dL (11.5-1 5.3) L 12/14/21 00:57 Hct 38.3 % (37.0-47.0 ) 12/14/21 00:57 MCV 73.9 fl (81-99) L 12/14/21 00:57 MCH 21.2 pg (28.0-34. 0) L 12/14/21 00:57 MCHC 28.7 g/dL (30.0-3 6.0) L 12/14/21 00:57 RDW 20.1 % (12.1-15.1 ) H 12/14/21 00:57 Plt Count 113 10^3/cmm (130 -400) L 12/14/21 00:57 MPV 9.0 fL (7.4-10.4) 12/14/21 00:57 Gran % Cancelled 12/13/21 23:48 Neut % (Auto) 33.5 % 12/14/21 00:57 Lymph % (Auto) 53.1 % 12/14/21 00:57 Winn % (Auto) 12.8 % 12/14/21 00:57 Eos % (Auto) 0.2 % 12/14/21 00:57 Baso % (Auto) 0.2 % 12/14/21 00:57 Neut # (Auto) 1.93 10^3/uL (1.8 -7.7) 12/14/21 00:57 Lymph # (Auto) 3.1 10^3/uL (0.8- 4.8) 12/14/21 00:57 Winn # (Auto) 0.7 10^3/uL (0.2- 0.9) 12/14/21 00:57 Eos # (Auto) 0.0 10^3/uL (0.0- 0.8) 12/14/21 00:57 Baso # (Auto) 0.0 10^3/uL (0.0- 0.1) 12/14/21 00:57 Absolute Gran (aut o) Cancelled 12/13/21 23:48 Nucleated RBC % (a uto) 0 % 12/14/21 00:57 Nucleated RBCs # 0.0 /100WBC 12/14/21 00:57 Sodium 142 mmol/L (136-1 45) 12/14/21 05:20 Potassium 3.2 mmol/L (3.5-5 .1) L 12/14/21 05:20 Chloride 111 mmol/L (98-10 7) H 12/14/21 05:20 Carbon Dioxide 17 mmol/L (22-29) L 12/14/21 05:20 Anion Gap 17.2 (5-19) 12/14/21 05:20 BUN 7 mg/dL (6-20) 12/14/21 05:20 Creatinine 0.5 mg/dL (0.5-0. 9) 12/14/21 05:20 GFR Calculation 136.0 mL/min (90- 130) H 12/14/21 05:20 Glucose 158 mg/dL (65-115 ) H 12/14/21 05:20 POC Glucose 109 mg/dL (70-110 ) 12/16/21 06:23 Calculated Osmolal ity 295 mOsm/kg (285- 295) 12/14/21 05:20 Calcium 7.9 mg/dL (8.5-10 .5) L 12/14/21 05:20 Total Bilirubin 0.7 mg/dL (0.15-1 .2) 12/13/21 23:48 AST 79 U/L (0-32) H 12/13/21 23:48 ALT 33 U/L (0-33) 12/13/21 23:48 Alkaline Phosphata se 198 IU/L (35-105) H 12/13/21 23:48 Total Protein 9.1 g/dL (6.6-8.7 ) H 12/13/21 23:48 Albumin 4.5 g/dL (3.5-5.2 ) 12/13/21 23:48 Globulin 4.6 g/dL (1.3-4.6 ) 12/13/21 23:48 Lipase 29 U/L (13-60) 12/13/21 23:48 TSH 0.03 uIU/mL (0.27 -4.20) L 12/13/21 23:48 Free T4 1.33 ng/dL (0.82- 1.77) 12/13/21 23:48 Salicylates < 0.3 mg/dL (3-10 ) L 12/13/21 23:48 Urine Opiates Scre en Negative ng/mL (N egative) 12/14/21 00:45 Acetaminophen < 5.0 ug/mL (10-3 0) L 12/13/21 23:48 Ur Barbiturates Sc reen Negative ng/mL (N egative) 12/14/21 00:45 Ur Phencyclidine S crn Negative ng/mL (N egative) 12/14/21 00:45 Ur Amphetamines Sc reen Negative ng/mL (N egative) 12/14/21 00:45 U Benzodiazepines Scrn Negative ng/mL (N egative) 12/14/21 00:45 Urine Cocaine Scre en Negative ng/mL (N egative) 12/14/21 00:45 U Marijuana (THC) Screen Negative ng/mL (N egative) 12/14/21 00:45 SARS-CoV-2 Ag (Rap id) Negative (Negati ve) 12/14/21 07:35 Vitals: Last Vital Signs Temp 98.1 F 12/16/21 06:00 Pulse 70 12/16/21 06:00 Resp 18 12/16/21 06:00 BP 112/73 12/16/21 06:00 Pulse Ox 96 12/16/21 06:00 Discharge Plan Discharge Patient Disposition: Home Condition: Stable Prescriptions: New prazosin 1 mg Capsule 1 mg PO BEDTIME 30 Days Qty: 30 1RF quetiapine 100 mg Tablet 100 mg PO BEDTIME 30 Days Qty: 30 1RF fluoxetine 20 mg Capsule 60 mg PO DAILY 30 Days Qty: 90 1RF Continued thiamine HCl (vitamin B1) 100 mg tablet 100 mg PO DAILY 0RF PNV,calcium 31-cdva-dglav acid 27 mg iron- 1 mg tablet 1 tab PO DAILY 0RF potassium chloride 10 mEq capsule, extended release 10 meq PO DAILY 0RF (DME) blood sugar diagnostic Strip See Rx Instructions .ROUTE .MEDSUPPLY Qty: 100 5RF Rx Instructions: use to check blood sugar 3-4 times per day levothyroxine 100 mcg tablet 100 mcg PO DAILY Qty: 30 0RF propranolol 40 mg tablet 40 mg PO BID Qty: 30 0RF pen needle, diabetic [Comfort EZ Pen [place]] 29 gauge x 1/2 needle See Rx Instructions .ROUTE .COMPLEX Qty: 100 1RF Dose Instruction: USE THREE TIMES DAILY Rx Instructions: USE THREE TIMES DAILY cyclobenzaprine 5 mg tablet 5 mg PO BID PRN (Reason: muscle spasm) 30 Days Qty: 60 0RF Rx Instructions: Do not operate heavy machinery or drive while taking the medication oxycodone 5 mg tablet 5 mg PO Q4H PRN (Reason: pain) 7 Days Qty: 40 0RF hydrocodone-acetaminophen 10-325 mg tablet 1 tab PO Q4H PRN (Reason: pain) 5 Days Qty: 40 0RF albuterol sulfate 90 mcg/actuation Hfa Aerosol Inhaler 2 puff INHALATION QID PRN (Reason: Shortness Of Breath) 0RF insulin lispro [Humalog U-100 Insulin] 100 unit/mL Solution See Rx Instructions .ROUTE .COMPLEX Qty: 10 0RF Rx Instructions: insulin sliding scale, inject subcut, tid and bedtime, before meals, based on sliding scale Levemir U-100 Insulin 100 unit/mL Solution 10 unit SUBCUT Q12H Qty: 10 0RF vancomycin-water inject (PEG) 1.5 gram/300 mL Piggyback 1,500 mg continuous IV infusion Q12H Qty: 1800 0RF Rx Instructions: END DATE sep 10 lactulose 20 gram/30 mL solution 20 g PO BID Qty: 1200 0RF Rx Instructions: titrate to 3-4 BM a day sennosides [Senna Lax] 8.6 mg tablet 8.6 mg PO DAILY Qty: 30 0RF oxycodone-acetaminophen 10-325 mg tablet 1 - 2 tab PO Q6H PRN (Reason: pain) 0RF Novolog Flexpen U-100 Insulin 100 unit/mL (3 mL) insulin pen 10 unit SUBCUT TID 0RF Lantus U-100 Insulin 100 unit/mL Solution 20 unit SUBCUT DAILY 0RF furosemide 20 mg tablet 20 mg PO DAILY 0RF Mucinex 600 mg tablet extended release 12hr 600 mg PO BID PRN (Reason: cough) Qty: 14 2RF Discharge Orders: Discharge Order (Routine); Ordered 12/16/21 Ordered By: Roel Colin Referrals: MADAN Mayfield, DIRECTOR CRITICAL CARE [Primary Care Provider] - Discharge Diet: Regular Discharge Activity: Resume usual activity Patient Instructions: Opioid Safety Discharge Attestations NPU Time Spent in Discharge Care*: less than 30 min Specific Discharge Activities: Specific discharge activities: educating patient, discussing with child welfare caseworker/social workers/dc planners, documenting/other paperwork and evaluating patient/reviewing data Status at Discharge: Cognitive status at discharge: cognitively intact, Behavioral status at discharge: cooperative, Coding Level of Care Code Acute [facility] DC note Diagnoses Borderline personality disorder F60.3 PTSD (post-traumatic stress disorder) F43.10 Anxiety F41.9 Major depressive disorder F32.9
[2021-12-16] MEDS: fluoxetine 20 mg Capsule 60 MG PO (09:43)
[2021-12-16] MEDS: multivitamin therapeutic Tablet 1 TAB PO (09:44)
[2021-12-16] MEDS: folic acid 1 mg Tablet PO (09:44)
[2021-12-16] MEDS: propranolol 20 mg Tablet 40 MG PO (09:44)
[2021-12-16] MEDS: thiamine 100 mg Tablet PO (09:44)
[2021-12-16 10:20] VITALS: BP 112/73; PULSE 70; RESP 18; TEMP 36.7; O2SAT 96
[2021-12-16 11:16] LABS: Glucose Point of Care 147 mg/dL (70-110)
== END 2021-12-16 14:41 | disposition home or self-care (01) | DRG 881 ==
LOC: ER 12-14 06:32 → NP 12-14 14:10
PROVIDERS: Emergency Medicine; Physician Assistant; Admitting Provider Psychiatry & Neurology Psychiatry; Emergency Provider Emergency Medicine; PCP Nurse Practitioner Family; Visit Provider Psychiatry & Neurology Psychiatry
DX: F32.9 Major depressive disorder, single episode, unspecified (principal); R45.851 Suicidal ideations; E11.9 Type 2 diabetes mellitus without complications; F60.3 Borderline personality disorder; F43.10 Post-traumatic stress disorder, unspecified; F41.9 Anxiety disorder, unspecified; Z79.891 Long term (current) use of opiate analgesic; Z79.51 Long term (current) use of inhaled steroids; Z79.4 Long term (current) use of insulin; E03.9 Hypothyroidism, unspecified; I11.0 Hypertensive heart disease with heart failure; I50.9 Heart failure, unspecified
CPT/HCPCS: 36416; 74176; 80048; 80053; 80306; 80307; 82962; 83690; 84439; 84443; 85025; 87426; 93005; 96365; 96372; 96375; 97150; 97165; 99285; J1630; J1815; J2060; J2405; J2765; J3411; J7030

== ENCOUNTER 2022-01-07 20:35 | Inpatient (IN) | payer MEDICAID, SELFPAY ==
[2022-01-07 20:50] VITALS: BP 147/94; PULSE 100; RESP 20; TEMP 36.7; O2SAT 97; BMI 29.5
--- NOTE | 2022-01-07 21:12 | W.ED.GENADLT ---
HPI - General Adult General: Chief complaint: General Medical Stated complaint: MHE Time Seen by Provider: 01/07/22 20:43 History of Present Illness: HPI: [41]yo patient w/ hx of bipolar disorder BIBA for call intoxication with SI and paln. Patient's mom told tells me earlier that she attempted to jump out of the car and kill herself on the free[place]. Patient actively denies having any ideation or plan at the current time. Patient is disinhibited and slurring her speech. No focal complaints of chest pain, shortness of breath, palpitations, N/V, focal GI/ complaints. Currently denies SI/HI. No complaints of hallucinations. Onset: unknown Duration: ongoing Location: home Severity: severe Associated symptoms: Deny chest pain, dyspnea, nausea, rash, palpitations or vomiting Review of Systems Const: Denies: fever(s) or chills Eyes: Denies: change in vision ENMT: Denies: mouth pain Card: Denies: chest pain or palpitations Resp: Denies: dyspnea or non-productive cough GI: Denies: abdominal pain, nausea, vomiting or diarrhea : Denies: dysuria Musc: Denies: extremity pain Skin/Breast: Denies: rash or new lesions Neuro: Reports: other (+confusion); Denies: weakness in extremities Psych: Reports: depression Patricio/Lymph: Denies: easy bruising PFSH ED PFSH: Medical History Abdominal pain Adjustment reaction with anxiety and depression Alcohol use disorder Anemia Anxiety with depression Bipolar disorder Borderline personality disorder Cholelithiasis Congestive heart failure Cystitis Diabetes mellitus, type II Drug-induced psychotic disorder FH: breast cancer in first degree relative H/O chronic hepatitis Hepatic encephalopathy Hypertension Hypertension screen Hypothyroid Meningitis Metabolic encephalopathy Methamphetamine abuse Muscle spasm Obstructive sleep apnea Opiate dependence 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 Pneumonia Polysubstance abuse Polysubstance abuse Respiratory failure with hypoxia Sepsis Staphylococcus aureus bacteremia Vitamin D deficiency Yeast dermatitis Surgical History History of Social History Smoking and tobacco status: never smoked Second hand smoke exposure: No Smoking risk assessment/counseling performed?: No Alcohol intake: never Desire information about alcohol rehabilitation?: No Counseling given: No Desire information about substance/drug rehabilitation?: No Counseling given: No Female Reproductive History: Date of last menstrual period: 10/23/20 Physical Exam Const: COMMON NORMALS: alert HENMT: COMMON NORMALS: atraumatic HEAD & SCALP: atraumatic MOUTH: moist mucous membranes not abnormal Eye: COMMON NORMALS: EOMs intact bilaterally and conjunctivae normal CONJUNCTIVA: Yes conjunctivae normal Neck/C-Spine: COMMON NORMALS: full ROM and supple Resp: COMMON NORMALS: normal respiratory effort and clear to auscultation bilaterally AUSCULTATION: clear to auscultation bilaterally Cardio: COMMON NORMALS: regular rate RATE: regular rate GI: COMMON NORMALS: Soft to palpation and non-tender PALPATION: Yes Soft to palpation Extremity: COMMON NORMALS: full ROM Neuro: SENSORIUM/ORIENTATION: Yes alert MOTOR EXAM: No Abnormal motor strength present and Other motor observations present (no focal motor deficits) OTHER: GCS 14 +confusion Psych: COMMON NORMALS: speech normal SPEECH: Yes normal speech MOOD & AFFECT: Yes euthymic mood Course Vital Signs: Vital signs: Vital Signs Temperature 98.0 F 01/07/22 20:50 Pulse Rate 99 01/07/22 21:13 Respiratory Rate 18 01/07/22 21:13 Blood Pressure 182/95 01/07/22 21:13 Pulse Oximetry 96 01/07/22 21:13 MDM - General Adult Medical Decision Making [41]yo patient w/ hx of bipolar disorder presenting for SI and attempting to jump out of car under intoxication. HDS, exam within normal limit. The patient has no AH/VH, or HI. Clinically the patient displays no overt toxidrome; they are well appearing, with low suspicion for toxic ingestion given history and exam. Symptoms unlikely 2/2 anemia, hypothyroidism, infection, or ICH. Workup: CBC, CMP, Lipase, salicylate/tylenol, alcohol level, UDS [10:30pm] On reassessment, labs and workup wnl. Patient is hemodynamically stable with no acute medical complaints. Case discussed with psychiatric provider Dr. Colin at [facility] psych inpatient with recommendation for admission Disposition: Psych Discharge Plan Discharge Condition: Stable Prescriptions: No Action thiamine HCl (vitamin B1) 100 mg tablet 100 mg PO DAILY 0RF PNV,calcium 24-cxbd-tnrsi acid 27 mg iron- 1 mg tablet 1 tab PO DAILY 0RF (DME) blood sugar diagnostic Strip See Rx Instructions .ROUTE .MEDSUPPLY Qty: 100 5RF Rx Instructions: use to check blood sugar 3-4 times per day levothyroxine 100 mcg tablet 100 mcg PO DAILY Qty: 30 0RF propranolol 40 mg tablet 40 mg PO BID Qty: 30 0RF pen needle, diabetic [Comfort EZ Pen [place]] 29 gauge x 1/2 needle See Rx Instructions .ROUTE .COMPLEX Qty: 100 1RF Dose Instruction: USE THREE TIMES DAILY Rx Instructions: USE THREE TIMES DAILY cyclobenzaprine 5 mg tablet 5 mg PO BID PRN (Reason: muscle spasm) 30 Days Qty: 60 0RF Rx Instructions: Do not operate heavy machinery or drive while taking the medication hydrocodone-acetaminophen 10-325 mg tablet 1 tab PO Q4H PRN (Reason: pain) 5 Days Qty: 40 0RF oxycodone 5 mg tablet 5 mg PO Q4H PRN (Reason: pain) 7 Days Qty: 40 0RF insulin lispro [Humalog U-100 Insulin] 100 unit/mL Solution See Rx Instructions .ROUTE .COMPLEX Qty: 10 0RF Rx Instructions: insulin sliding scale, inject subcut, tid and bedtime, before meals, based on sliding scale sennosides [Senna Lax] 8.6 mg tablet 8.6 mg PO DAILY Qty: 30 0RF oxycodone-acetaminophen 10-325 mg tablet 1 - 2 tab PO Q6H PRN (Reason: pain) 0RF Novolog Flexpen U-100 Insulin 100 unit/mL (3 mL) insulin pen 10 unit SUBCUT TID 0RF Lantus U-100 Insulin 100 unit/mL Solution 20 unit SUBCUT DAILY 0RF prazosin 1 mg Capsule 1 mg PO BEDTIME 30 Days Qty: 30 1RF quetiapine 100 mg Tablet 100 mg PO BEDTIME 30 Days Qty: 30 1RF fluoxetine 20 mg Capsule 60 mg PO DAILY 30 Days Qty: 90 1RF Mucinex 600 mg tablet extended release 12hr 600 mg PO BID PRN (Reason: cough) Qty: 14 2RF Referrals: Chaparro,MADAN, WINEM[place]ER [Primary Care Provider] - Coding Level of Care Code ED Splicer Helper for Chg Fwd Exam Comprehensive
[2022-01-07 21:13] VITALS: BP 182/95; PULSE 99; RESP 18; O2SAT 96
[2022-01-07 22:37] LABS: Basophils % 0.2 %; Eosinophils # 0.1 10^3/uL (0.0-0.8); Eosinophils % 1.3 %; Hematocrit 30.6 % (37.0-47.0); Hemoglobin 9.3 g/dL (11.5-15.3); Lymphocytes # 3.4 10^3/uL (0.8-4.8); Lymphocytes % 63.5 %; Mean Corpuscular HGB Conc 30.4 g/dL (30.0-36.0); Mean Corpuscular Hemoglobin 20.2 pg (28.0-34.0); Mean Corpuscular Volume 66.5 fl (81-99); Mean Platelet Volume 8.4 fL (7.4-10.4); Monocytes # 0.5 10^3/uL (0.2-0.9); Neutrophils # 1.32 10^3/uL (1.8-7.7); Neutrophils % 24.8 %; Nucleated Red Blood Cells % 0 %; Platelet Count 104 10^3/cmm (130-400); Red Cell Distribution Width 19.9 % (12.1-15.1); White Blood Count 5.3 10^3/uL (4.0-10.0)
[2022-01-07 22:38] LABS: Amphetamines Screen Urine Negative (Negative); Barbiturates Screen Urine Negative (Negative); Benzodiazepines Screen Urine Negative (Negative); Cocaine Screen Urine Negative (Negative); Opiate Screen Urine Positive (Negative); PCP Screen Urine Negative (Negative); THC Screen Urine Negative (Negative)
[2022-01-07 22:47] LABS: HCG, Serum Qual Negative (Negative)
[2022-01-07 22:52] LABS: Alanine Aminotransferase 33 U/L (0-33); Albumin Level 3.8 g/dL (3.5-5.2); Alkaline Phosphatase 209 IU/L (35-105); Anion Gap 17.8 (5-19); Aspartate Amino Transferase 70 U/L (0-32); Blood Urea Nitrogen 10 mg/dL (6-20); Calcium 8.1 mg/dL (8.5-10.5); Carbon Dioxide 19 mmol/L (22-29); Chloride 109 mmol/L (98-107); Globulin 4.6 g/dL (1.3-4.6); Glucose 106 mg/dL (65-115); Lipase 32 U/L (13-60); Osmolality Calculated 295 mOsm/kg (285-295); Sodium 143 mmol/L (136-145); Total Bilirubin 0.4 mg/dL (0.15-1.2); Total Protein 8.4 g/dL (6.6-8.7)
[2022-01-07 22:54] LABS: Acetaminophen < 5.0 ug/mL (10-30); Salicylate < 0.3 mg/dL (3-10)
[2022-01-07 23:13] LABS: Alcohol Level 391 mg/dL (0-10); Potassium 2.8 mmol/L (3.5-5.1)
[2022-01-08] VITALS (7 sets, daily range): BP systolic 147–183; BP diastolic 75–105; PULSE 66–99; RESP 16–18; TEMP 36.3–36.7; O2SAT 97–100
[2022-01-08] MEDS: LORazepam 1 mg Tablet PO (05:39)
[2022-01-08] MEDS: potassium chloride ER 20 mEq Tablet 60 MEQ PO (05:39)
--- NOTE | 2022-01-08 07:50 | PC.NURSE ---
Patient refused to eat breakfast. Patient in bed, calm at this time, resting in bed with eyes open. Verified with Dr. Jenkins that patient is to only have one dose of potassium.
--- NOTE | 2022-01-08 08:00 | PC.NURSE ---
Patient given milk per her request. Patient also requesting something for her nerves notified .
--- NOTE | 2022-01-08 09:01 | PC.NURSE ---
Patient requesting more Ativan, discussed with he states not at this time, she had a previous dose.
--- NOTE | 2022-01-08 09:38 | PC.NURSE ---
Patient in bed, sitting on side of bed, patient states her lower chronic back pain is bothering her, warm blankets provided to patient and applied to her back.
[2022-01-08] MEDS: ibuprofen 600 mg Tablet PO (10:20)
[2022-01-08 10:27] LABS: Alcohol Level 28 mg/dL (0-10); Anion Gap 17.5 (5-19); Blood Urea Nitrogen 11 mg/dL (6-20); Calcium 8.8 mg/dL (8.5-10.5); Carbon Dioxide 19 mmol/L (22-29); Chloride 104 mmol/L (98-107); Glomerular Filtration Rate 175.9 mL/min (90-130); Glucose 124 mg/dL (65-115); Osmolality Calculated 285 mOsm/kg (285-295); Potassium 3.5 mmol/L (3.5-5.1); Sodium 137 mmol/L (136-145)
--- NOTE | 2022-01-08 11:14 | PC.NURSE ---
Report called to [facility] accepted report, but is unable to take patient at this time. She states she will call when she can take the patient.
[2022-01-08] MEDS: OLANZapine 5 mg ODT PO (12:23)
[2022-01-08] MEDS: acetaminophen 325 mg Tablet 650 MG PO (12:51)
[2022-01-08 16:47] LABS: Glucose Point of Care 108 mg/dL (70-110)
[2022-01-08] MEDS: oxyCODONE-APAP 10-325 mg Tablet PO (17:14)
[2022-01-08] MEDS: propranolol 40 mg Tablet PO (17:15)
[2022-01-08 19:47] LABS: Glucose Point of Care 124 mg/dL (70-110)
[2022-01-08] MEDS: prazosin 1 mg Capsule PO (20:27)
[2022-01-08] MEDS: quetiapine 100 mg Tablet PO (20:27)
[2022-01-09 06:00] VITALS: BP 160/80; PULSE 63; RESP 17; O2SAT 100
--- NOTE | 2022-01-09 07:35 | P.NPUHP_ITS ---
Providers/Chief Complaint Admitting Physician: Roel Colin MD Primary Care Provider: FARHAT Rivera Chief Complaint: MHE HPI NPU History of Present Illness Gina Jay is a 41 year old female admitted through our emergency department with the following report: HPI: [41]yo patient w/ hx of bipolar disorder BIBA for call intoxication with SI and paln.? Patient's mom told tells me earlier that she attempted to jump out of the car and kill herself on the freeway.? Patient actively denies having any ideation or plan at the current time.? Patient is disinhibited and slurring her speech. No focal complaints of chest pain, shortness of breath, palpitations, N/V, focal GI/ complaints. Currently denies SI/HI. No complaints of hallucinations. Urine drug screen was positive for opiates.? Alcohol level was 391 She was admitted to the neuropsychiatry unit for definitive treatment of these issues. She says that she did threaten to jump out of the car. She says that is because she knew that her mother was taking her to the hospital because she was so intoxicated. She says that she had no intention of actually doing it. She says that she drinks about 4 times per month. She says she had 10 sugar yesterday over about 6 hours. She says that otherwise she has been doing well. She feels like her medication is working well. She says that her mood has generally been good. She says that the Prozac 60 mg is working well. She says that her nightmares are better but she still has them at some point and would like to try increasing the prazosin to 2 mg daily. She says that she has mostly been able to put the deaths that she had in her family including her last year behind her. She does not feel that she needs to be in the hospital but is willing to stay here until tomorrow as long as everything is fine until then. Diagnoses at Discharge Discharge Diagnosis (1) Borderline personality disorder: ?Status:?Acute (2) PTSD (post-traumatic stress disorder): ?Status:?Acute (3) Anxiety: ?Status:?Acute (4) Major depressive disorder: ?Status:?Acute My Prozac is not working anymore.? Brief History: History of Present Illness Gina Jay is a 41 year old female admitted through our emergency department with the following report: Patient is a 41-year-old female comes to the ED for mental health evaluation.? Patient says she takes Prozac 40 mg daily for her depression.? She thinks that the medication is not working.? She is having increased depression but denies any SI.? Patient is complaining of having some nausea, vomiting and abdominal pain that started today.? Her abdominal pain is located in the periumbilical region.? Abdominal pain rated 8 out of 10.? Denies any fever, chills, dysuria, hematuria, diarrhea, constipation or blood in stool.? When I asked patient about suicidal thoughts she was slow to give me an answer. Mother brought patient in and filled out affidavit.? Mother says patient has been talking about increased depression and has expressed thoughts of suicide verbally to mother multiple times.? She is said directly to mother that she just wants to and mother is worried that she is a serious harm to herself. Associated symptoms: Reports depression and suicidal ideation; She was admitted to the neuropsychiatry unit for definitive treatment of these issues.? She says that she has been more depressed for the last few months.? She feels like her Prozac is no longer working like it did.? I have also had many deaths in her family.? Her this last year.? Her daughter also lost a baby at which was surprised.? It strangulated on his umbilical cord.? She also lost both of her grandmothers and an uncle.? She denies having any suicidal ideation but her depression has been bad.? She says that anxiety is also a big problem for her.? She cannot go shopping because she gets overwhelmed very easily.? She worries too much about things.? She has panic attacks often.? She used to be OCD about several things but since she has been disabled she cannot take care of them and has given up.? She has nightmares most nights and would like to take something for nightmares.? These nightmares frequently wake her up and cause panic attacks but she frequently does not remember them.? She assumes they are from her childhood trauma.? She has been diagnosed with borderline personality disorder as well as bipolar disorder.? She does not have times where she is up for a week at a time and full of energy and not need sleep.? She does not think that she has bipolar.? She has a long history of taking bad boyfriends.? She has had a very tough life.? She used to use drugs but has been clean for the last couple of years.? She has been disabled for several years because she injured her back.? She has difficulty walking.? She said that Prozac 20 mg helped some but it stopped working and Prozac 40 mg worked well for depression and a nxiety for several months.? She would like to try increasing to 60 mg. Hospital Course Hospital Course She slowly acclimated to the individual, group and milieu therapies provided.? She was continued on her outpatient medications except Prozac was increased to 60 mg and prazosin 1 mg was added for nightmares.? She tolerated these doses and showed steady improvement during her stay.? ? She was able to contract for safety outside hospital prior to discharge.? During the hospitalization, patient had routine laboratory studies which were within normal limits except for few outliers.? Additionally there was a general medical evaluation which was also within normal limits and revealed no new acute processes. Discharge Summary: At the time of discharge, lethality was denied..? Mood and anxiety were well managed.? Patient endorsed a plan to follow-up with the aftercare recommendations of the treatment team.? Patient was evaluated and deemed to be absent credible lethality, and had achieved the maximum benefit from [facility], so was discharged. Prescriptions: New ? prazosin 1 mg Capsule ?? 1 mg PO BEDTIME 30 Days Qty: 30 1RF ? quetiapine 100 mg Tablet ?? 100 mg PO BEDTIME 30 Days Qty: 30 1RF ? fluoxetine 20 mg Capsule ?? 60 mg PO DAILY 30 Days Qty: 90 1RF Continued ? thiamine HCl (vitamin B1) 100 mg tablet ?? 100 mg PO DAILY 0RF ? PNV,calcium 35-ynpk-tcocs acid 27 mg iron- 1 mg tablet ?? 1 tab PO DAILY 0RF ? potassium chloride 10 mEq capsule, extended release ?? 10 meq PO DAILY 0RF ? (DME) blood sugar diagnostic? Strip ?? See Rx Instructions? .ROUTE .MEDSUPPLY Qty: 100 5RF ?? Rx Instructions: ?? use to check blood sugar 3-4 times per day ? levothyroxine 100 mcg tablet ?? 100 mcg PO DAILY Qty: 30 0RF ? propranolol 40 mg tablet ?? 40 mg PO BID Qty: 30 0RF ? pen needle, diabetic [Comfort EZ Pen [place]] 29 gauge x 1/2 needle ?? See Rx Instructions? .ROUTE .COMPLEX Qty: 100 1RF ?? Dose Instruction: ?? USE THREE TIMES DAILY ?? Rx Instructions: ?? USE THREE TIMES DAILY ? cyclobenzaprine 5 mg tablet ?? 5 mg PO BID PRN (Reason: muscle spasm) 30 Days Qty: 60 0RF ?? Rx Instructions: ?? Do not operate heavy machinery or drive while taking the medication ? oxycodone 5 mg tablet ?? 5 mg PO Q4H PRN (Reason: pain) 7 Days Qty: 40 0RF ? hydrocodone-acetaminophen 10-325 mg tablet ?? 1 tab PO Q4H PRN (Reason: pain) 5 Days Qty: 40 0RF ? albuterol sulfate 90 mcg/actuation Hfa Aerosol Inhaler ?? 2 puff INHALATION QID PRN (Reason: Shortness Of Breath) 0RF ? insulin lispro [Humalog U-100 Insulin] 100 unit/mL Solution ?? See Rx Instructions? .ROUTE .COMPLEX Qty: 10 0RF ?? Rx Instructions: ?? insulin sliding scale, inject subcut, tid and bedtime, before meals, based on sliding scale ? Levemir U-100 Insulin 100 unit/mL Solution ?? 10 unit SUBCUT Q12H Qty: 10 0RF ? vancomycin-water inject (PEG) 1.5 gram/300 mL Piggyback ?? 1,500 mg continuous IV infusion Q12H Qty: 1800 0RF ?? Rx Instructions: ?? END DATE sep 10 ? lactulose 20 gram/30 mL solution ?? 20 g PO BID Qty: 1200 0RF ?? Rx Instructions: ?? titrate to 3-4 BM a day ? sennosides [Senna Lax] 8.6 mg tablet ?? 8.6 mg PO DAILY Qty: 30 0RF ? oxycodone-acetaminophen 10-325 mg tablet ?? 1 - 2 tab PO Q6H PRN (Reason: pain) 0RF ? Novolog Flexpen U-100 Insulin 100 unit/mL (3 mL) insulin pen ?? 10 unit SUBCUT TID 0RF ? Lantus U-100 Insulin 100 unit/mL Solution ?? 20 unit SUBCUT DAILY 0RF ? furosemide 20 mg tablet ?? 20 mg PO DAILY 0RF ? Mucinex 600 mg tablet extended release 12hr ?? 600 mg PO BID PRN (Reason: cough) Qty: 14 2RF Meds NPU Home Medications Medication Instructions Recorded Confirmed Last Taken Type blood sugar diagnostic #100 ea 10/14/20 01/08/22 Unknown Rx levothyroxine 100 mcg tablet 100 mcg PO DAILY #30 tab 06/19/21 01/08/22 Unknown Rx propranolol 40 mg tablet 40 mg PO BID #30 tab 06/19/21 01/08/22 Unknown Rx insulin lispro 100 unit/mL See Rx Instructions .ROUTE 08/13/21 01/08/22 Unknown Rx subcutaneous solution (Humalog .COMPLEX #10 ml U-100 Insulin) pen needle, diabetic 29 gauge x See Rx Instructions .ROUTE 08/18/21 01/08/22 Unknown Rx 1/2 (Comfort EZ Pen [place]) .COMPLEX #100 ea insulin aspart U-100 100 unit/mL 10 unit SUBCUT TID 12/14/21 01/08/22 Unknown History (3 mL) subcutaneous pen (Novolog Flexpen U-100 Insulin aspart) insulin glargine 100 unit/mL 20 unit SUBCUT DAILY 12/14/21 01/08/22 Unknown History subcutaneous solution (Lantus U-100 Insulin) oxycodone-acetaminophen 10 mg-325 1 - 2 tab PO Q6H PRN 12/14/21 01/08/22 Unknown History mg tablet fluoxetine 20 mg capsule 60 mg PO DAILY 30 Days #90 cap 12/16/21 01/08/22 Unknown Rx prazosin 1 mg capsule 1 mg PO BEDTIME 30 Days #30 cap 12/16/21 01/08/22 Unknown Rx quetiapine 100 mg tablet 100 mg PO BEDTIME 30 Days #30 tab 12/16/21 01/08/22 Unknown Rx Allergies Allergy/AdvReac Type Severity Reaction Status Date / Time iodine Allergy Mild unknown Verified 01/08/22 08:27 Sulfa (Sulfonamide Allergy Mild rash Verified 01/08/22 08:27 Antibiotics) PFSH NPU PFSH: Medical History (Updated 01/09/22 @ 10:36 by Roel Colin MD) Abdominal pain Adjustment reaction with anxiety and depression Alcohol use disorder Anemia Anxiety with depression Bipolar disorder Borderline personality disorder Cholelithiasis Congestive heart failure Cystitis Diabetes mellitus, type II Drug-induced psychotic disorder FH: breast cancer in first degree relative H/O chronic hepatitis Hepatic encephalopathy Hypertension Hypertension screen Hypothyroid Meningitis Metabolic encephalopathy Methamphetamine abuse Muscle spasm Obstructive sleep apnea Opiate dependence 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 Pneumonia Polysubstance abuse Polysubstance abuse Respiratory failure with hypoxia Sepsis Staphylococcus aureus bacteremia Vitamin D deficiency Yeast dermatitis Surgical History History of Social History Smoking and tobacco status: never smoked Second hand smoke exposure: No Smoking risk assessment/counseling performed?: No Alcohol intake: never Desire information about alcohol rehabilitation?: No Counseling given: No Desire information about substance/drug rehabilitation?: No Counseling given: No Mental Status Exam MSE Comments: This is a 41-year-old overweight female who appears a little older than her stated age in no acute distress. She is pleasant and cooperative with the evaluation. She is adequately groomed and dressed in hospital scrubs. Her eye contact is good. psychomotor activity is normal. Speech is at a regular rate and rhythm, normal volume, good articulation, not pressured. Alert, oriented X3 Attention and concentration appears to be normal. Memory is intact Mood is good Affect is euthymic. Thought process is logical and goal-directed. Thought content: Denies auditory and visual hallucinations. No delusions or paranoia are noted. No current suicidal ideation. He denies homicidal ideation. Fund of knowledge is probably average. Insight and judgment appear to be fair. Impulse control is poor. Vitals/I&O/Wt Last Vital Signs Temp 98.0 F 01/08/22 14:00 Pulse 63 01/09/22 06:00 Resp 17 01/09/22 06:00 BP 160/80 01/09/22 06:00 Pulse Ox 100 01/09/22 06:00 Weight last 48 hrs Weight 90.718 kg Data NPU : 01/07/22 22:25 01/08/22 09:50 A&P Assessment and plan (1) PTSD (post-traumatic stress disorder): Status: Acute (2) Major depressive disorder: Status: Acute (3) Anxiety: Status: Acute (4) Borderline personality disorder: Status: Acute (5) Alcohol use disorder: Status: Acute Plan This is a 41-year-old female with PTSD and borderline personality disorder who became very intoxicated yesterday and threatened to kill herself when her mom was bringing her to the hospital. Plan: 1. Continue current medication. Increase prazosin to 2 mg at bedtime for nightmares. 2. Continue every 15 minute checks for safety. 3. Encourage individual, group and milieu therapies. 4. Encourage sober living treatment after discharge at the highest level of care to which she is willing to commit. 5. We will monitor for safety for herself in the community prior to discharge. Involuntary Hold Information 96 Hour Hold: 96 Hour Involuntary Admission: Yes 96 Hour Hold Ending Date: 12/21/21 96 Hour Hold Ending Time: 22:20 Attestations U Medical Necessity Statement*: Inpatient hospitalization is medically necessary and the clinically appropriate intervention at this time. We will initiate medications and make changes as indicated. She will be in the hospital for over 2 midnights. Likely length of stay 4-6 days Coding Level of Care Code Acute [facility] for Lor[facility] Chandler Diagnoses PTSD (post-traumatic stress disorder) F43.10 Major depressive disorder F32.9 Anxiety F41.9 Borderline personality disorder F60.3 Alcohol use disorder
[2022-01-09 07:43] LABS: Glucose Point of Care 120 mg/dL (70-110)
[2022-01-09] MEDS: fluoxetine 20 mg Capsule 60 MG PO (08:16)
[2022-01-09] MEDS: levothyroxine 100 mcg Tablet PO (08:16)
[2022-01-09] MEDS: oxyCODONE-APAP 10-325 mg Tablet PO (08:17)
[2022-01-09] MEDS: propranolol 40 mg Tablet PO ×2 (08:17→17:09)
--- NOTE | 2022-01-09 09:21 | PC.NURSE ---
DENIES SI/HI AND AVH AT THIS TIME. REPORTS 9/10 BACK PAIN, MED NURSE ADMINISTERED PRN PAIN MED ORDERED. STATES IT'S STUPID I'M HERE I WAS NOT GOING TO JUMP OUT OF THE CAR. ASKED PT IF SHE WAS HAVING ANY WITHDRAWLS FROM ALCOHOL PT STATES, NO . PT VERY UPSET AND NEGATIVE DUE TO NOT GETTING MY PAIN MEDS NOW. :
[2022-01-09] MEDS: insulin glargine 100 units/1 mL 20 UNIT SUBCUT (10:36)
[2022-01-09] MEDS: OLANZapine 5 mg ODT PO (10:36)
[2022-01-09 11:45] LABS: Glucose Point of Care 172 mg/dL (70-110)
[2022-01-09 12:10] VITALS: RESP 20
[2022-01-09] MEDS: oxyCODONE-APAP 10-325 mg Tablet 1 TAB PO ×3 (12:10→20:36)
[2022-01-09] MEDS: insulin lispro 100 unit/1 mL SUBCUT ×2 (12:10→20:36)
[2022-01-09 14:00] VITALS: BP 144/70; PULSE 59; RESP 20; TEMP 36.8; O2SAT 98
[2022-01-09 16:36] LABS: Glucose Point of Care 100 mg/dL (70-110)
[2022-01-09 16:37] VITALS: RESP 20
[2022-01-09 19:53] VITALS: BP 148/82; PULSE 66; RESP 17; TEMP 37; O2SAT 98
[2022-01-09 20:03] LABS: Glucose Point of Care 143 mg/dL (70-110)
[2022-01-09] MEDS: quetiapine 100 mg Tablet PO (20:28)
[2022-01-09] MEDS: prazosin 1 mg Capsule 2 MG PO (20:28)
[2022-01-09 20:36] VITALS: RESP 20
[2022-01-10 06:00] VITALS: BP 116/67; PULSE 63; RESP 16; TEMP 36.8; O2SAT 98
[2022-01-10 06:07] VITALS: RESP 22
[2022-01-10] MEDS: oxyCODONE-APAP 10-325 mg Tablet 1 TAB PO ×2 (06:07→10:13)
[2022-01-10 06:23] LABS: Glucose Point of Care 112 mg/dL (70-110)
--- NOTE | 2022-01-10 07:30 | W.PM.NPUDCS ---
Diagnoses at Discharge Discharge Diagnosis (1) PTSD (post-traumatic stress disorder): Status: Acute (2) Major depressive disorder: Status: Acute (3) Anxiety: Status: Acute (4) Borderline personality disorder: Status: Acute (5) Alcohol use disorder: Status: Acute Reason for Visit Reason for Visit: MHE Brief History: History of Present Illness Gina Jay is a 41 year old female admitted through our emergency department with the following report: HPI: [41]yo patient w/ hx of bipolar disorder BIBA for call intoxication with SI and paln.? Patient's mom told tells me earlier that she attempted to jump out of the car and kill herself on the free[place].? Patient actively denies having any ideation or plan at the current time.? Patient is disinhibited and slurring her speech. No focal complaints of chest pain, shortness of breath, palpitations, N/V, focal GI/ complaints. Currently denies SI/HI. No complaints of hallucinations. Urine drug screen was positive for opiates.? Alcohol level was 391 She was admitted to the neuropsychiatry unit for definitive treatment of these issues.? She says that she did threaten to jump out of the car.? She says that is because she knew that her mother was taking her to the hospital because she was so intoxicated.? She says that she had no intention of actually doing it.? She says that she drinks about 4 times per month.? She says she had 10 sugar yesterday over about 6 hours.? She says that otherwise she has been doing well.? She feels like her medication is working well.? She says that her mood has generally been good.? She says that the Prozac 60 mg is working well.? She says that her nightmares are better but she still has them at some point and would like to try increasing the prazosin to 2 mg daily.? She says that she has mostly been able to put the deaths that she had in her family including her last year behind her.? She does not feel that she needs to be in the hospital but is willing to stay here until tomorrow as long as everything is fine until then. Hospital Course Hospital Course She slowly acclimated to the individual, group and milieu therapies provided. She was continued on her outpatient medications except for prazosin was increased to 2 mg at bedtime. She consistently denied suicidal ideation throughout her admission. She promised that she would abstain from alcohol from now on. She realizes it causes her much more trouble than it is worth. She tolerated these doses and showed steady improvement during her stay. She was able to contract for safety outside hospital prior to discharge. During the hospitalization, patient had routine laboratory studies which were within normal limits except for few outliers. Additionally there was a general medical evaluation which was also within normal limits and revealed no new acute processes. Discharge Summary: At the time of discharge, lethality was denied. Mood and anxiety were well managed. Patient endorsed a plan to follow-up with the aftercare recommendations of the treatment team. Patient was evaluated and deemed to be absent credible lethality, and had achieved the maximum benefit from an inpatient hospitalization, so was discharged. Involuntary Hold Information 96 Hour Hold: 96 Hour Involuntary Admission: Yes 96 Hour Hold Ending Date: 12/21/21 96 Hour Hold Ending Time: 22:20 Mental Status Exam MSE Comments: This is a 41-year-old overweight female who appears a little older than her stated age in no acute distress.? She is pleasant and cooperative with the evaluation.? She is adequately groomed and dressed in hospital scrubs.? Her eye contact is good. psychomotor activity is normal. Speech is at a regular rate and rhythm, normal volume, good articulation, not pressured. Alert, oriented X3 Attention and concentration appears to be normal. Memory is intact Mood is good? Affect is euthymic. Thought process is logical and goal-directed. Thought content:? Denies auditory and visual hallucinations.? No delusions or paranoia are noted.? No current suicidal ideation.? He denies homicidal ideation.? Fund of knowledge is probably average. Insight and judgment appear to be fair. Impulse control is poor. Cognition: Patient Appearance: Appears Older than Age and Disheveled/Poor Hygiene Level of Consciousness: Awake, Alert, Appropriate and Follows Commands Patient Cognition Impaired: Yes Ability to Follow Directions: Fair Patient Orientation (long list): Person, Place, Time and Name Comprehension Ability: Understands Concepts Hallucination Type: None Delusion Description: Not Present Thought Process: Appropriate Affect: Affect Description: Appropriate and Calm Behavior: Patient Behavior: Appropriate and Cooperative Speech Pattern: Appropriate and Clear Discharge Data Studies Completed and Pending: Laboratory Results WBC 5.3 10^3/uL (4.0- 10.0) 01/07/22: RBC 4.60 10^6/uL (4.1 -5.3) 01/07/22: Hgb 9.3 g/dL (11.5-15 .3) L 01/07/22: Hct 30.6 % (37.0-47.0 ) L 01/07/22: MCV 66.5 fl (81-99) L 01/07/22: MCH 20.2 pg (28.0-34. 0) L 01/07/22: MCHC 30.4 g/dL (30.0-3 6.0) 01/07/22: RDW 19.9 % (12.1-15.1 ) H 01/07/22: Plt Count 104 10^3/cmm (130 -400) L 01/07/22: MPV 8.4 fL (7.4-10.4) 01/07/22: Neut % (Auto) 24.8 % 01/07/22: Lymph % (Auto) 63.5 % 01/07/22: Hughes % (Auto) 10.0 % 01/07/22: Eos % (Auto) 1.3 % 01/07/22: Baso % (Auto) 0.2 % 01/07/22: Neut # (Auto) 1.32 10^3/uL (1.8 -7.7) L 01/07/22: Lymph # (Auto) 3.4 10^3/uL (0.8- 4.8) 01/07/22: Hughes # (Auto) 0.5 10^3/uL (0.2- 0.9) 01/07/22: Eos # (Auto) 0.1 10^3/uL (0.0- 0.8) 01/07/22: Baso # (Auto) 0.0 10^3/uL (0.0- 0.1) 01/07/22: Nucleated RBC % (a uto) 0 % 01/07/22: Nucleated RBCs # 0.0 /100WBC 01/07/22:25 Sodium 137 mmol/L (136-1 45) 01/08/22 09:50 Potassium 3.5 mmol/L (3.5-5 .1) 01/08/22 09:50 Chloride 104 mmol/L (98-10 7) 01/08/22 09:50 Carbon Dioxide 19 mmol/L (22-29) L 01/08/22 09:50 Anion Gap 17.5 (5-19) 01/08/22 09:50 BUN 11 mg/dL (6-20) 01/08/22 09:50 Creatinine 0.4 mg/dL (0.5-0. 9) L 01/08/22 09:50 GFR Calculation 175.9 mL/min (90- 130) H 01/08/22 09:50 Glucose 124 mg/dL (65-115 ) H 01/08/22 09:50 POC Glucose 112 mg/dL (70-110 ) H 01/10/22 06:19 Calculated Osmolal ity 285 mOsm/kg (285- 295) 01/08/22 09:50 Calcium 8.8 mg/dL (8.5-10 .5) 01/08/22 09:50 Total Bilirubin 0.4 mg/dL (0.15-1 .2) 01/07/22 22:25 AST 70 U/L (0-32) H 01/07/22 22:25 ALT 33 U/L (0-33) 01/07/22 22:25 Alkaline Phosphata se 209 IU/L (35-105) H 01/07/22 22:25 Total Protein 8.4 g/dL (6.6-8.7 ) 01/07/22 22:25 Albumin 3.8 g/dL (3.5-5.2 ) 01/07/22 22:25 Globulin 4.6 g/dL (1.3-4.6 ) 01/07/22 22:25 Lipase 32 U/L (13-60) 01/07/22 22:25 HCG, Qual Negative (Negati ve) 01/07/22 22:25 Salicylates < 0.3 mg/dL (3-10 ) L 01/07/22 22:25 Urine Opiates Scre en Positive ng/mL (N egative) H 01/07/22 21:00 Acetaminophen < 5.0 ug/mL (10-3 0) L 01/07/22 22:25 Ur Barbiturates Sc reen Negative ng/mL (N egative) 01/07/22 21:00 Ur Phencyclidine S crn Negative ng/mL (N egative) 01/07/22 21:00 Ur Amphetamines Sc reen Negative ng/mL (N egative) 01/07/22 21:00 U Benzodiazepines Scrn Negative ng/mL (N egative) 01/07/22 21:00 Urine Cocaine Scre en Negative ng/mL (N egative) 01/07/22 21:00 U Marijuana (THC) Screen Negative ng/mL (N egative) 01/07/22 21:00 Ethyl Alcohol 28 mg/dL (0-10) H 01/08/22 09:50 Vitals: Last Vital Signs Temp 98.3 F 01/10/22 06:00 Pulse 63 01/10/22 06:00 Resp 22 H 01/10/22 06:07 BP 116/67 01/10/22 06:00 Pulse Ox 98 01/10/22 06:00 Discharge Plan Discharge Patient Disposition: Home Condition: Stable Prescriptions: New prazosin 1 mg Capsule 2 mg PO BEDTIME 30 Days Qty: 60 1RF Continued (DME) blood sugar diagnostic Strip See Rx Instructions .ROUTE .MEDSUPPLY Qty: 100 5RF Rx Instructions: use to check blood sugar 3-4 times per day levothyroxine 100 mcg tablet 100 mcg PO DAILY Qty: 30 0RF propranolol 40 mg tablet 40 mg PO BID Qty: 30 0RF pen needle, diabetic [Comfort EZ Pen [place]] 29 gauge x 1/2 needle See Rx Instructions .ROUTE .COMPLEX Qty: 100 1RF Dose Instruction: USE THREE TIMES DAILY Rx Instructions: USE THREE TIMES DAILY insulin lispro [Humalog U-100 Insulin] 100 unit/mL Solution See Rx Instructions .ROUTE .COMPLEX Qty: 10 0RF Rx Instructions: insulin sliding scale, inject subcut, tid and bedtime, before meals, based on sliding scale oxycodone-acetaminophen 10-325 mg tablet 1 - 2 tab PO Q6H PRN (Reason: pain) 0RF insulin aspart U-100 [Novolog Flexpen U-100 Insulin] 100 unit/mL (3 mL) insulin pen 10 unit SUBCUT TID 0RF insulin glargine [Lantus U-100 Insulin] 100 unit/mL Solution 20 unit SUBCUT DAILY 0RF quetiapine 100 mg Tablet 100 mg PO BEDTIME 30 Days Qty: 30 1RF fluoxetine 20 mg Capsule 60 mg PO DAILY 30 Days Qty: 90 1RF Discontinued prazosin 1 mg Capsule 1 mg PO BEDTIME 30 Days Qty: 30 1RF Discharge Orders: Discharge Order (Routine); Ordered 01/10/22 Ordered By: Roel Colin Referrals: MADAN Mayfield, [employer] [Primary Care Provider] - Discharge Diet: Diabetic Discharge Activity: Resume usual activity Patient Instructions: Opioid Safety Discharge Attestations NPU Time Spent in Discharge Care*: less than 30 min Specific Discharge Activities: Specific discharge activities: educating patient, discussing with child support case officer/social workers/dc planners, documenting/other paperwork and evaluating patient/reviewing data Status at Discharge: Cognitive status at discharge: cognitively intact, Behavioral status at discharge: cooperative, Coding Level of Care Code Acute [facility] DC note Diagnoses PTSD (post-traumatic stress disorder) F43.10 Major depressive disorder F32.9 Anxiety F41.9 Borderline personality disorder F60.3 Alcohol use disorder
[2022-01-10 08:09] VITALS: RESP 22
[2022-01-10] MEDS: insulin glargine 100 units/1 mL 20 UNIT SUBCUT (08:15)
[2022-01-10] MEDS: levothyroxine 100 mcg Tablet PO (08:16)
[2022-01-10] MEDS: propranolol 40 mg Tablet PO (08:16)
[2022-01-10] MEDS: fluoxetine 20 mg Capsule 60 MG PO (08:16)
[2022-01-10 08:20] VITALS: BP 116/67; PULSE 63; RESP 22; TEMP 36.8; O2SAT 98
[2022-01-10 10:13] VITALS: RESP 20; O2SAT 95
--- NOTE | 2022-01-11 08:33 | PC.OT ---
OT EVALUATION ORDERS RECEIVED. PATIENT DISCHARGED BEFORE EVALUATION COULD BE COMPLETED
== END 2022-01-10 10:32 | disposition home or self-care (01) | DRG 897 ==
LOC: ER 01-08 01:40 → ER IP 01-08 06:05 → NP 01-08 11:04
PROVIDERS: Family Medicine; Admitting Provider Psychiatry & Neurology Psychiatry; Emergency Provider Emergency Medicine; PCP Nurse Practitioner Family; Visit Provider Psychiatry & Neurology Psychiatry
DX: F10.129 Alcohol abuse with intoxication, unspecified (principal); F33.9 Major depressive disorder, recurrent, unspecified; R45.851 Suicidal ideations; Y90.8 Blood alcohol level of 240 mg/100 ml or more; F43.10 Post-traumatic stress disorder, unspecified; F41.9 Anxiety disorder, unspecified; F60.3 Borderline personality disorder; Z79.4 Long term (current) use of insulin; Z79.891 Long term (current) use of opiate analgesic; E11.9 Type 2 diabetes mellitus without complications
CPT/HCPCS: 36416; 80048; 80053; 80306; 80307; 82962; 83690; 84703; 85025; 96372; 99285; J1815 ×2

== ENCOUNTER 2022-02-23 06:50 | Emergency (ER) | payer MEDICAID, SELFPAY ==
[2022-02-23 06:53] VITALS: BP 115/78; PULSE 93; RESP 16; TEMP 37.1; O2SAT 98; BMI 29.5
--- NOTE | 2022-02-23 06:55 | W.ED.BACK ---
HPI - Back Pain/Injury General: Chief Complaint: Back Pain/Injury Stated Complaint: BACK PAIN Time Seen by Provider: 02/23/22 06:51 Source: patient Mode of arrival: EMS Limitations: no limitations History of Present Illness: 41-year-old female presents emergency room via EMS with a complaint of back pain. Went into the room she is twisting and turning in the bed with no evidence of any pain. She is obviously acutely under the influence. She admits to having done methamphetamine. Patient repeatedly denies any suicidal or homicidal ideation. She is disheveled and has bits of grass and dirt all over her clothing. She picks at them stating she thinks there are bugs. She has no obvious injury no deformity. Patient is able to sit up and ambulate independently. MD elicited complaint: back pain Onset (ago): unknown Radiation: none Exacerbating factors: none Relieving factors: none Associated symptoms: Deny abdominal pain, chills, change in bowel habits, difficulty walking, dysuria, fatigue, fecal incontinence, fever(s), hematuria, myalgias, nausea, numbness, syncope, tingling/numbness/burning, urinary frequency, urinary urgency, vomiting or weakness Review of Systems General: Reports: Other (Difficult to obtain because patient is under the influence) Const: Denies: fever(s), chills or fatigue Card: Denies: chest pain or syncope GI: Denies: abdominal pain, nausea, vomiting, fecal incontinence or change in bowel habits : Denies: flank pain, difficulty voiding, dysuria, urinary frequency, urinary urgency or hematuria Musc: Reports: back pain (Verbalizes complaint of back pain but shows no evidence of same) Neuro: Denies: difficulty walking PFS ED PFSH: Medical History (Updated 02/25/22 @ 08:16 by Guerrero Jenkins DO) Abdominal pain Adjustment reaction with anxiety and depression Alcohol use disorder Anemia Anxiety with depression Bipolar disorder Borderline personality disorder Cholelithiasis Congestive heart failure Cystitis Diabetes mellitus, type II Drug-induced psychotic disorder FH: breast cancer in first degree relative H/O chronic hepatitis Hepatic encephalopathy Hypertension Hypertension screen Hypothyroid Meningitis Metabolic encephalopathy Methamphetamine abuse Muscle spasm Obstructive sleep apnea Opiate dependence 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 Pneumonia Polysubstance abuse Polysubstance abuse Respiratory failure with hypoxia Sepsis Staphylococcus aureus bacteremia Vitamin D deficiency Yeast dermatitis Surgical History History of Social History Smoking and tobacco status: never smoked Second hand smoke exposure: No Smoking risk assessment/counseling performed?: No Alcohol intake: never Desire information about alcohol rehabilitation?: No Counseling given: No Desire information about substance/drug rehabilitation?: No Counseling given: No Female Reproductive History: Date of last menstrual period: 10/23/20 Physical Exam Const: COMMON NORMALS: no acute distress GENERAL APPEARANCE: comfortable ORIENTATION/CONSCIOUSNESS: Yes awake HENMT: COMMON NORMALS: normocephalic, atraumatic and hearing grossly normal bilaterally HEAD & SCALP: normocephalic and atraumatic Resp: COMMON NORMALS: normal respiratory effort, No retractions, No use of accessory muscles and clear to auscultation bilaterally AUSCULTATION: clear to auscultation bilaterally Cardio: COMMON NORMALS: regular rate, regular rhythm and No murmurs present (Cardio) RATE: regular rate RHYTHM: regular rhythm GI: COMMON NORMALS: Soft to palpation and No hepatosplenomegaly present AUSCULTATION: Yes normoactive bowel sounds PALPATION: Yes Soft to palpation, No Tenderness to palpation present (GI), No Guarding due to palpation present (GI) and Yes No hepatosplenomegaly present Extremity: COMMON NORMALS: normal to inspection, capillary refill normal, no clubbing, cyanosis or edema, no calf tenderness and no pedal edema Course Vital Signs: Vital signs: Vital Signs Temperature 98.7 F 02/23/22 10:23 Pulse Rate 93 02/23/22 10:23 Respiratory Rate 16 02/23/22 10:23 Blood Pressure 115/78 02/23/22 10:23 Pulse Oximetry 98 02/23/22 10:23 Oxygen Delivery Me thod 02/23/22 06:53 MDM - Back Pain/Injury Medical Decision Making Patient not suicidal or homicidal. She is having some hallucinations due to the methamphetamine use. She is ambulating. She has no difficulty with bowel or bladder. At this point there is little benefit to admitting the patient to the hospital. Her visual hallucinations are methamphetamine induced and will resolve with time from her ingestion of meth. Patient discharged home with family. Medical Records I reviewed the patient's medical records. Labs I reviewed the patient's lab results. Laboratory Results POC Glucose 140 mg/dL (70-110) H 02/23/22 07:22 Discharge Plan Discharge Patient Disposition: Home Clinical Impression: Methamphetamine use, Lumbar back pain, Drug-induced psychotic disorder Condition: Stable Prescriptions: New diclofenac sodium 75 mg tablet,delayed release (DR/EC) 75 mg PO Q12H PRN (Reason: pain) Qty: 20 0RF No Action (DME) blood sugar diagnostic Strip See Rx Instructions .ROUTE .MEDSUPPLY Qty: 100 5RF Rx Instructions: use to check blood sugar 3-4 times per day pen needle, diabetic [Comfort EZ Pen [place]] 29 gauge x 1/2 needle See Rx Instructions .ROUTE .COMPLEX Qty: 100 1RF Dose Instruction: USE THREE TIMES DAILY Rx Instructions: USE THREE TIMES DAILY insulin glargine [Lantus U-100 Insulin] 100 unit/mL solution 20 unit SUBCUT DAILY Qty: 10 1RF insulin lispro [Humalog U-100 Insulin] 100 unit/mL solution See Rx Instructions .ROUTE .COMPLEX Qty: 10 0RF Rx Instructions: insulin sliding scale, inject subcut, tid and bedtime, before meals, based on sliding scale levothyroxine 100 mcg tablet 100 mcg PO DAILY Qty: 30 0RF propranolol 40 mg tablet 40 mg PO BID Qty: 30 0RF (DME) blood sugar diagnostic Strip See Rx Instructions .Route Qty: 100 2RF Rx Instructions: As directed amlodipine 10 mg tablet 10 mg PO DAILY 30 Days Qty: 30 0RF clonidine HCl 0.1 mg tablet 0.1 mg PO BID 30 Days Qty: 60 0RF folic acid 1 mg tablet 1 mg PO DAILY 30 Days Qty: 30 0RF oxycodone-acetaminophen 10-325 mg tablet 1 - 2 tab PO Q6H PRN (Reason: pain) quetiapine 100 mg Tablet 100 mg PO BEDTIME 30 Days Qty: 30 1RF fluoxetine 20 mg Capsule 60 mg PO DAILY 30 Days Qty: 90 1RF prazosin 1 mg Capsule 2 mg PO BEDTIME 30 Days Qty: 60 1RF Discharge Orders: Discharge ED (Routine); Ordered 02/23/22 Ordered By: Guerrero Jenkins Referrals: MADAN Mayfield, MARKETING ANALYTICS ANALYST [Primary Care Provider] - Discharge Diet: Usual diet Patient Instructions: Methamphetamine Abuse, Methamphetamine Use Disorder (ED), Opioid Safety Activity Restrictions/Additional Instructions: Recommend stop using methamphetamines. Pursuing an outpatient treatment program such as [facility] is recommended. Follow-up with your primary care doctor as needed. Follow-up with Dr. Wong for your back pain as previously scheduled. Coding Level of Care Code ED Lithographic Photographer Apprentice for Lorri Chandler
[2022-02-23] MEDS: ibuprofen 800 mg tablet PO (07:11)
[2022-02-23 07:26] LABS: Glucose Point of Care 140 mg/dL (70-110)
[2022-02-23] MEDS: LORazepam 2 mg Tablet PO (07:42)
[2022-02-23 10:23] VITALS: BP 115/78; PULSE 93; RESP 16; TEMP 37.1; O2SAT 98
== END 2022-02-23 10:24 | disposition home or self-care (01) ==
PROVIDERS: Emergency Provider Family Medicine; PCP Nurse Practitioner Family
DX: M54.50 Low back pain, unspecified (principal); F15.959 Other stimulant use, unspecified with stimulant-induced psychotic disorder, unspecified; Z79.4 Long term (current) use of insulin; I11.0 Hypertensive heart disease with heart failure; I50.9 Heart failure, unspecified; E11.9 Type 2 diabetes mellitus without complications
CPT/HCPCS: 36416; 82962; 99283

== ENCOUNTER → 2022-03-11 13:17 | Outpatient (BNVA) | payer MEDICAID, SELFPAY | PROVIDERS: PCP Nurse Practitioner Family; Visit Provider Orthopaedic Surgery | DX: M54.16 Radiculopathy, lumbar region (principal) | CPT/HCPCS: 99213; 99214 ==

== ENCOUNTER → 2022-03-30 15:21 | Outpatient (BNVA) | payer MEDICAID, SELFPAY | PROVIDERS: PCP Nurse Practitioner Family; Visit Provider Orthopaedic Surgery | DX: M48.062 Spinal stenosis, lumbar region with neurogenic claudication (principal); R73.9 Hyperglycemia, unspecified | CPT/HCPCS: 99213; 99214 ==

== ENCOUNTER 2022-04-07 06:16 | Inpatient (IN) | payer MEDICAID, SELFPAY ==
[2022-04-07] VITALS (70 sets, daily range): BP systolic 126–180; BP diastolic 64–106; PULSE 61–115; RESP 10–34; TEMP 36–36.8; O2SAT 92–100; BMI 34.2
--- NOTE | 2022-04-07 06:21 | ED_ITS ---
HPI - Back Pain/Injury General: Chief Complaint: Back Pain/Injury Stated Complaint: BACK PAIN Time Seen by Provider: 04/07/22 06:20 Limitations: altered mental status History of Present Illness: Ms. Jay is a 41-year-old lady with complex past medical history presents to the emergency department for somewhat unclear reasons. Initially she was brought in by EMS for back pain which appears chronic for the patient. Additionally she has been seen multiple times over the past week at outside emergency department. However, she endorses abdominal pain which has been ongoing for some period of time to me. The patient provides very limited history and cannot answer basic questions about her current condition or prior evaluations. History otherwise limited on mental status. Review of Systems General: Reports: ROS unobtainable due to mental status PFSH ED PFSH: Medical History Abdominal pain Adjustment reaction with anxiety and depression Alcohol use disorder Anemia Anxiety with depression Bipolar disorder Borderline personality disorder Cholelithiasis Congestive heart failure Cystitis Diabetes mellitus, type II Drug-induced psychotic disorder FH: breast cancer in first degree relative H/O chronic hepatitis Hepatic encephalopathy Hypertension Hypertension screen Hypothyroid Meningitis Metabolic encephalopathy Methamphetamine abuse Muscle spasm Obstructive sleep apnea Opiate dependence 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 Pneumonia Polysubstance abuse Polysubstance abuse Respiratory failure with hypoxia Sepsis Staphylococcus aureus bacteremia Vitamin D deficiency Yeast dermatitis Surgical History History of Social History Smoking and tobacco status: never smoked Second hand smoke exposure: No Smoking risk assessment/counseling performed?: No Alcohol intake: never Desire information about alcohol rehabilitation?: No Counseling given: No Desire information about substance/drug rehabilitation?: No Counseling given: No Female Reproductive History: Date of last menstrual period: 10/23/20 Physical Exam Const: COMMON NORMALS: alert GENERAL APPEARANCE: well developed HENMT: COMMON NORMALS: normocephalic and atraumatic HEAD & SCALP: normocephalic and atraumatic Eye: COMMON NORMALS: conjunctivae normal CONJUNCTIVA: Yes conjunctivae normal SCLERA: sclerae normal Neck/C-Spine: COMMON NORMALS: supple GENERAL: Yes trachea midline Resp: COMMON NORMALS: clear to auscultation bilaterally EFFORT & INSPECTION: Yes able to speak in complete sentences AUSCULTATION: clear to auscultation bilaterally Cardio: COMMON NORMALS: regular rate and regular rhythm RATE: regular rate RHYTHM: regular rhythm GI: COMMON NORMALS: Soft to palpation PALPATION: Yes Soft to palpation and No Tenderness to palpation present (GI) Extremity: GENERAL: Yes normal exam except as noted and No edema Neuro: COMMON NORMALS: moves all extremities SENSORIUM/ORIENTATION: Yes alert and Yes Orientation impaired Psych: MEMORY/COGNITION: Yes memory grossly impaired INSIGHT: Poor insight present (Psych) Course ED course: - Patient was seen and evaluated by me at bedside - Patient placed on cardiac monitors, IV access obtained - Initial evaluation notable for exam as above. EKG notable for sinus tachycardia with nonspecific ST segment abnormalities. - Labs and xrays personally interpreted by me - Fluids, Haldol given - Labs notable for leukocytosis, microcytic anemia panel notable for significant hypokalemia and decreased bicarb with increased lactic acid. T bili is elevated. No evidence of UTI. Toxic ingestions only positive for benzodiazepin es. -Fluids, antibiotics, and potassium replenishment ordered - Imaging notable for no lobar consolidation or pneumothorax. CT head negative for acute cranial pathology to explain mental status. CT abdomen pelvis likely demonstrating pancreatitis. Cholelithiasis present however no evidence cholec ystitis and normal CBD. - Upon serial reexamination after treatment the patient was somewhat improved - Based on patient history, evaluation, and testing as interpreted the most likely cause of the patient's condition is metabolic encephalopathy likely secondary to pancreatitis with evidence of SIRS. - The results of ED evaluation were discussed with the patient including plan for admission due to requirement for level of care not available if discharged to prevent significant worsening/deterioration. - Admitting service was contacted and Dr Reyes with the hospital service agreed to admit the patient - Patient was admitted without further deterioration or significant events. Note: Click bubbles or prepopulated rolle in note writing are used for assistance with data collection and billing and are inherently more limited than narrative and other text portions of this note. Please use narrative for additional clinical history and defer to narrative/free test for any case of contradictory information. If information appears in only free text or click bubble it should be considered present or absent as reported. Please contact note promotion writer for clarifications of clinical information or contradictory information. MDM is a brief summary, contradictory or erroneous seeming information should be clarified and full note should be reviewed. Vital Signs: Vital signs: Vital Signs Temperature 98.0 F 04/14/22 20:11 Pulse Rate 74 04/14/22 20:11 Respiratory Rate 18 04/14/22 20:11 Blood Pressure 153/90 04/14/22 20:11 Pulse Oximetry 100 04/14/22 20:11 Oxygen Delivery Me thod 04/14/22 15:50 Oxygen Flow Rate 5 04/09/22 08:30 MDM - Back Pain/Injury Medical Decision Making 41-year-old lady presenting with altered mental status, likely of pancreatitis with fairly significant metabolic derangement. Admitted for further management. Medical Records I reviewed the patient's medical records. Labs I reviewed the patient's lab results. : 04/14/22 05:19 04/14/22 05:[address] 04/07/22 06:34 IMPRESSION: No acute intracranial abnormality. Abdomen/Pelvis CT 04/07/22 07:41 IMPRESSION: 1. Suggestion of diffuse edema involving the pancreas with peripancreatic inflammatory stranding suspicious for pancreatitis. Recommend correlation with pancreatic enzymes. Images in the upper abdomen are degraded by motion. 2. Cholelithiasis or gallbladder sludge. No fluid in the gallbladder fossa. This can be followed up with ultrasound. 3. No hydronephrosis in either kidney. 4. Stable splenomegaly. 5. Small amount of free fluid in the pelvis. 6. Chronic changes of discitis L4-L5 and L5-S1 similar to the prior CT December 14, 2021. Chest X-Ray 04/07/22 09:44 Impression: Negative chest. Abdomen Ultrasound 04/07/22 11:17 IMPRESSION: 1. Hepatomegaly with coarse echogenicity suspicious for hepatocellular disease. Recommend correlation with liver function tests. 2. Cholelithiasis. No gallbladder wall thickening or pericholecystic fluid. 3. Normal common bile duct. 4. No hydronephrosis in RIGHT kidney. 5. Echogenic pancreas suspicious for pancreatitis as discussed on the concurrent CT. Soft Tissue Ultrasound 04/13/22 10:22 IMPRESSION: 1. No soft tissue abscess in the RIGHT gluteal region. 2. Soft tissue edema and a soft tissues tract with surrounding edema. Laboratory Results WBC 17.7 10^3/uL (4.0-10.0) H 04/07/22 07:24 RBC 3.42 10^6/uL (4.1-5.3) L 04/07/22 07:24 Hgb 7.7 g/dL (11.5-15.3) L 04/07/22 07:24 Hct 25.0 % (37.0-47.0) L 04/07/22 07:24 MCV 73.1 fl (81-99) L 04/07/22 07:24 MCH 22.5 pg (28.0-34.0) L 04/07/22 07:24 MCHC 30.8 g/dL (30.0-36.0) 04/07/22 07:24 RDW 22.7 % (12.1-15.1) H 04/07/22 07:24 Plt Count 73 10^3/cmm (130-400) L 04/07/22 07:24 MPV 10.5 fL (7.4-10.4) H 04/07/22 07:24 Neut % (Auto) 87.8 % 04/07/22 07:24 Lymph % (Auto) 3.6 % 04/07/22 07:24 [place] % (Auto) 7.0 % 04/07/22 07:24 Eos % (Auto) 0.3 % 04/07/22 07:24 Baso % (Auto) 0.5 % 04/07/22 07:24 Neut # (Auto) 15.53 10^3/uL (1.8-7.7) H 04/07/22 07:24 Lymph # (Auto) 0.6 10^3/uL (0.8-4.8) L 04/07/22 07:24 [place] # (Auto) 1.2 10^3/uL (0.2-0.9) H 04/07/22 07:24 Eos # (Auto) 0.1 10^3/uL (0.0-0.8) 04/07/22 07:24 Baso # (Auto) 0.1 10^3/uL (0.0-0.1) 04/07/22 07:24 Nucleated RBC % (auto) 0 % 04/07/22 07:24 Nucleated RBCs # 0.0 /100WBC 04/07/22 07:24 Specimen Type Arterial 04/07/22 07:00 Sample Site Radial, right 04/07/22 07:00 ABG pH 7.52 (7.35-7.45) H 04/07/22 07:00 ABG pCO2 18.5 mmHg (35-45) L* 04/07/22 07:00 ABG pO2 101.0 mmHg (80.0-100.0) H 04/07/22 07:00 ABG HCO3 15.1 mmol/L (22-26) L 04/07/22 07:00 ABG Base Excess -6.7 mmol/L (-2.0-2.0) L 04/07/22 07:00 [place] Test Pos 04/07/22 07:00 Hematocrit 24.1 % (37-47) L 04/07/22 07:00 O2 Delivery Device Room air 04/07/22 07:00 FiO2 21.0 % 04/07/22 07:00 Manager Non Profit ID Ed 04/07/22 07:00 Sodium 132 mmol/L (136-145) L 04/07/22 07:24 Potassium 1.9 mmol/L (3.5-5.1) L* 04/07/22 08:50 Chloride 101 mmol/L (98-107) 04/07/22 07:24 Carbon Dioxide 15 mmol/L (22-29) L 04/07/22 07:24 Anion Gap 17.9 (5-19) 04/07/22 07:24 BUN 6 mg/dL (6-20) 04/07/22 07:24 Creatinine 0.5 mg/dL (0.5-0.9) 04/07/22 07:24 GFR Calculation 136.0 mL/min (90-130) H 04/07/22 07:24 Glucose 330 mg/dL (65-115) H 04/07/22 07:24 Calculated Osmolality 284 mOsm/kg (285-295) L 04/07/22 07:24 Lactic Acid 3.1 mmol/L (0.5-2.2) H 04/07/22 07:24 Lactic Acid (Sepsis) 2.4 mmol/L (0.5-2.2) H 04/07/22 10:47 Calcium 8.0 mg/dL (8.5-10.5) L 04/07/22 07:24 Magnesium 1.9 mg/dL (1.7-2.3) 04/07/22 10:47 Total Bilirubin 3.6 mg/dL (0.15-1.2) H 04/07/22 07:24 Direct Bilirubin 2.40 mg/dL (0.00-0.30) H 04/07/22 07:24 AST 25 U/L (0-32) 04/07/22 07:24 ALT 11 U/L (0-33) 04/07/22 07:24 Alkaline Phosphatase 247 U/L (35-105) H 04/07/22 07:24 Ammonia 135 umol/L (11-51) H 04/07/22 07:24 Total Protein 7.0 g/dL (6.6-8.7) 04/07/22 07:24 Albumin 2.7 g/dL (3.5-5.2) L 04/07/22 07:24 Globulin 4.3 g/dL (1.3-4.6) 04/07/22 07:24 Lipase 27 U/L (13-60) 04/07/22 07:24 TSH 0.02 uIU/mL (0.27-4.20) L 04/07/22 07:24 Free T4 1.80 ng/dL (0.82-1.77) H 04/07/22 07:24 Urine Color Yellow (Yellow) 04/07/22 08:45 Urine Appearance Clear (CLEAR) 04/07/22 08:45 Urine pH 7 (5-7) 04/07/22 08:45 Ur Specific [place] 1.000 (1.005-1.030) L 04/07/22 08:45 Urine Protein Neg (Negative) 04/07/22 08:45 Urine Glucose (UA) Norm (Normal) 04/07/22 08:45 Urine Ketones 1+ (Negative) H 04/07/22 08:45 Urine Blood Neg (Negative) 04/07/22 08:45 Urine Nitrate Negative (Negative) 04/07/22 08:45 Urine Bilirubin 1+ (Negative) H 04/07/22 08:45 Urine Urobilinogen 4+ mg/dL (Negative) H 04/07/22 08:45 Ur Leukocyte Esterase Trace (Negative) H 04/07/22 08:45 Urine RBC 0-4 /hpf (0-2) H 04/07/22 08:45 Urine WBC 0-4 /hpf (0-5) H 04/07/22 08:45 Ur Squamous Epith Cells 0-4 /hpf (0-5) H 04/07/22 08:45 Amorphous Sediment Not Reportable 04/07/22 08:45 Urine Bacteria None /hpf (NONE) 04/07/22 08:45 Salicylates < 0.3 mg/dL (3-10) L 04/07/22 07:24 Urine Opiates Screen Negative ng/mL (Negative) 04/07/22 08:45 Acetaminophen < 5.0 ug/mL (10-30) L 04/07/22 07:24 Ur Barbiturates Screen Negative ng/mL (Negative) 04/07/22 08:45 Ur Phencyclidine Scrn Negative ng/mL (Negative) 04/07/22 08:45 Ur Amphetamines Screen Negative ng/mL (Negative) 04/07/22 08:45 U Benzodiazepines Scrn Positive ng/mL (Negative) H 04/07/22 08:45 Urine Cocaine Screen Negative ng/mL (Negative) 04/07/22 08:45 U Marijuana (THC) Screen Negative ng/mL (Negative) 04/07/22 08:45 Critical Care Time Critical Care Time: Critical Care Time: Yes Total Critical Care Time: 45 Attestation: Due to a high probability of clinically significant, possibly life threatening deterioration, the patient required my highest level of attention and prepare dness to intervene emergently and I personally spent this critical care time directly and personally managing the patient. This critical care time included obtaining a history; examining the patient; pulse oximetry; ordering and review of laboratory and imaging studies; arranging urgent treatment with development of a management plan; evaluation of patient's response to treatment; frequent reassessment; and, discussions with other providers as applicable. It was exclusive of separately billable procedures. Primary system involved is metabolic Discharge Plan Discharge Patient Disposition: Admitted As Inpatient Admit Provider: Gaudencio Reyes Clinical Impression: Acute pancreatitis, Thrombocytopenia, Acute hepatic encephalopathy, Leukocytosis, Acute on chronic anemia, Acute hypokalemia Condition: Stable Discharge Diet: Soft Mechanical Discharge Activity: Increase activity as tolerated and As per PT/OT instructions Coding Level of Care Code ED Gymnastics Coach Or Instructor for Chg Fwd Exam Comprehensive
--- NOTE | 2022-04-07 06:34 | CTR_ITS ---
PROCEDURE INFORMATION: Exam: CT Head Without Contrast Exam date and time: 04/07/2022 6:49 AM Age: 41 years old Clinical indication: Altered mental status/memory loss; Additional info: AMS TECHNIQUE: Imaging protocol: Computed tomography of the head without contrast. Radiation optimization: All CT scans at this facility use at least one of these dose optimization techniques: automated exposure control; mA and/or kV adjustment per patient size (includes targeted exams where dose is matched to clinical indication); or iterative reconstruction. COMPARISON: CT head wo con* [id number] 07/27/2021 8:28 PM RADIATION DOSE METRICS: Total DLP (mGy-cm): 1129.99 FINDINGS: Brain: Normal. No hemorrhage. Unremarkable white matter. No mass effect. Cerebral ventricles: No ventriculomegaly. Paranasal sinuses: Visualized sinuses are unremarkable. No fluid levels. Mastoid air cells: Visualized mastoid air cells are well aerated. Bones/joints: Unremarkable. No acute fracture. Soft tissues: Unremarkable. CT/CT head wo con* [id number] IMPRESSION: No acute intracranial abnormality.
--- NOTE | 2022-04-07 06:34 | ECG_ITS ---
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 Measurements Intervals [place] Rate: 113 P: 73 CO: 160 QRS: 3 QRSD: 96 T: 61 QT: 249 QTc: 342 Interpretive Statements SINUS TACHYCARDIA NONSPECIFIC ST & T-WAVE ABNORMALITY Compared to ECG 12/13/2021 23:52:55 T-wave abnormality now present Sinus rhythm no longer present Electronically Signed On 04-07-2022 19:46:36 CDT by Raz Kenney M.D. [id number]
[2022-04-07 07:13] LABS: ABG PH Result 7.52 (7.35-7.45); Arterial Blood Gas Hematocrit 24.1 % (37-47); Base Excess ABG -6.7 mmol/L (-2.0-2.0); Blood Gas Allen Test Pos; Blood Gas Operator Identificat ED; Blood Gas Sample Site Radial, right; Blood Gas Sample Type Arterial; HCO3 ABG 15.1 mmol/L (22-26); Oxygen Device ROOM AIR
[2022-04-07 07:15] LABS: ABG PCO2 18.5 mmHg (35-45)
[2022-04-07 07:32] LABS: Basophils # 0.1 10^3/uL (0.0-0.1); Basophils % 0.5 %; Eosinophils # 0.1 10^3/uL (0.0-0.8); Eosinophils % 0.3 %; Hemoglobin 7.7 g/dL (11.5-15.3); Lymphocytes # 0.6 10^3/uL (0.8-4.8); Lymphocytes % 3.6 %; Mean Corpuscular HGB Conc 30.8 g/dL (30.0-36.0); Mean Corpuscular Hemoglobin 22.5 pg (28.0-34.0); Mean Corpuscular Volume 73.1 fl (81-99); Mean Platelet Volume 10.5 fL (7.4-10.4); Monocytes # 1.2 10^3/uL (0.2-0.9); Neutrophils # 15.53 10^3/uL (1.8-7.7); Neutrophils % 87.8 %; Nucleated Red Blood Cells % 0 %; Platelet Count 73 10^3/cmm (130-400); Red Blood Count 3.42 10^6/uL (4.1-5.3); Red Cell Distribution Width 22.7 % (12.1-15.1); White Blood Count 17.7 10^3/uL (4.0-10.0)
--- NOTE | 2022-04-07 07:41 | CT_ITS ---
WS: [id number] CT ABDOMEN PELVIS TECHNIQUE: Noncontrast CT of the abdomen and pelvis with coronal and sagittal reformatted images. CLINICAL INFORMATION: abd pain COMPARISON: CT December 14, 2021 DLP: 1112.[address] scans at [facility] use at least one of these dose optimization techniques: automated e xposure control; mA and/or kV adjustment per patient size (includes targeted exams where dose is matc hed to clinical indication); or iterative reconstruction. FINDINGS: Images degraded by patient motion. Cholelithiasis or gallbladder sludge similar previous. This can be further evaluated ultrasound. No g allbladder fossa fluid. Noncontrast liver is normal. Splenomegaly measuring 16.8 cm [id number]. Bib asilar atelectasis. Suggestion of diffuse edema involving the noncontrast pancreas with mild surrounding inflammatory str anding. Findings suspicious for pancreatitis. Correlation with pancreatic enzymes. No drainable fluid collections. No peripancreatic fluid collections. Mild mesenteric edema in the upper abdomen. Normal caliber abdominal aorta. Adrenal glands are normal. No hydronephrosis. Normal sigmoid colon. N o evidence of high-grade small or large bowel destruction. Small amount of free fluid in the pelvis. Previously described LEFT ovarian cyst has essentially resolved with multi-follicular LEFT ovary. Chr onic changes of discitis L4-L5 and L5-S1 discussed on prior MRI July 30, 2021. This is similar in appearance to the prior CT December 14, 2021. Retroverted uterus. CT/CT abdomen pelvis wo con [id number] IMPRESSION: 1. Suggestion of diffuse edema involving the pancreas with peripancreatic infl ammatory stranding suspicious for pancreatitis. Recommend correlation with panc reatic enzymes. Images in the upper abdomen are degraded by motion. 2. Cholelithiasis or gallbladder sludge. No fluid in the gallbladder fossa. Th is can be followed up with ultrasound. 3. No hydronephrosis in either kidney. 4. Stable splenomegaly. 5. Small amount of free fluid in the pelvis. 6. Chronic changes of discitis L4-L5 and L5-S1 similar to the prior CT December 14, 2021.
[2022-04-07] MEDS: haloperidol inj 5 mg/mL INJ 1 mL 2 MG IVP (08:06)
[2022-04-07 08:18] LABS: Ammonia 135 umol/L (11-51)
[2022-04-07 08:28] LABS: Anion Gap 17.9 (5-19); Blood Urea Nitrogen 6 mg/dL (6-20); Carbon Dioxide 15 mmol/L (22-29); Chloride 101 mmol/L (98-107); Glucose 330 mg/dL (65-115); Osmolality Calculated 284 mOsm/kg (285-295); Sodium 132 mmol/L (136-145); Thyroid Stimulating Hormone 0.02 uIU/mL (0.27-4.20)
[2022-04-07 08:43] LABS: Slide Review Slide Review Perform
[2022-04-07 08:44] LABS: Acetaminophen < 5.0 ug/mL (10-30); Salicylate < 0.3 mg/dL (3-10)
[2022-04-07 08:46] LABS: Potassium 1.9 mmol/L (3.5-5.1)
--- NOTE | 2022-04-07 08:47 | PC.NURSE ---
K-1.[address] Turner, redraw ordered.
[2022-04-07 09:07] LABS: Lactic Sepsis W/Reflex 3.1 mmol/L (0.5-2.2)
[2022-04-07 09:08] LABS: Alanine Aminotransferase 11 U/L (0-33); Albumin Level 2.7 g/dL (3.5-5.2); Alkaline Phosphatase 247 U/L (35-105); Aspartate Amino Transferase 25 U/L (0-32); Globulin 4.3 g/dL (1.3-4.6); Total Bilirubin 3.6 mg/dL (0.15-1.2)
[2022-04-07] MEDS: magnesium sulfate premix 2 GM/50 ML PIGGYBACK IV (09:15)
[2022-04-07 09:22] LABS: Potassium 1.9 mmol/L (3.5-5.1)
[2022-04-07 09:34] LABS: Blood Urine Neg (Negative); Glucose Urine UA Norm (Normal); Ketones Urine 1+ (Negative); Nitrate Urine Negative (Negative); Protein Urine Neg (Negative); Urine Appearance Clear (CLEAR); Urine Color Yellow (Yellow); pH Urine 7 (5-7)
[2022-04-07 09:35] LABS: Add Urine Microscopic? YES; Bilirubin Urine 1+ (Negative); Leukocyte Esterase Urine Trace (Negative); Urobilinogen Urine 4+ mg/dL (Negative)
[2022-04-07 09:38] LABS: Add Urine Culture? No; RBC Urine 0-4 /hpf (0-2); Squamous Epithelial Cell Urine 0-4 /hpf (0-5); WBC Urine 0-4 /hpf (0-5)
--- NOTE | 2022-04-07 09:44 | XR_ITS ---
WS: [id number] Portable AP supine chest, 04/07/2022 Clinical Data: ams Comparison: Portable chest, 10/20/2021. Findings: No nodules, masses or effusions are seen. The heart is normal. The pulmonary vascularity is not increased. No pneumonia or pneumothorax is seen. XR/XR chest 1V portable [id number] Impression: Negative chest.
[2022-04-07 09:46] LABS: Lipase 27 U/L (13-60)
[2022-04-07 09:57] LABS: Amphetamines Screen Urine Negative (Negative); Barbiturates Screen Urine Negative (Negative); Benzodiazepines Screen Urine Positive (Negative); Cocaine Screen Urine Negative (Negative); Opiate Screen Urine Negative (Negative); PCP Screen Urine Negative (Negative); THC Screen Urine Negative (Negative)
--- NOTE | 2022-04-07 10:02 | PC.PHAR ---
Addendum entered by Kendra Brown 04/07/22 10:29: pts mother rene [phone] called and states she knows the pt has been taking prozac states they had a build up of the medication states the pt has been taking ibu prn and states the pt was seen at an er on 03/31/22 and got percocet 5-325mg 1 po q6h prn max 4 tabs #12 for 3 d/s-states she is unsure on the pts other medications states the pt had a fall last week and had been in bed for 2 weeks straight Original Note: unable to verify medications with pt-called pts daughter marisol [phone] states she is unsure of pts medications states she no longer lives here so she doesnt know what her mother takes-medications entered are what [facility] has filled recently and the past few months-notes are made in the pharmacy comments with last fill dates-[facility] states the pt didnt get the humalog insulin states the copay was to high rx written 01/19/22-
[2022-04-07] MEDS: lactated ringers 1,000 ML 999 ML IV (10:15)
[2022-04-07] MEDS: piperacillin-tazobactam 4.5 GM in sodium chloride 0.9% (plus) 50 ML IV (10:15)
[2022-04-07 10:40] LABS: Reflex Lactate Order REFLEX LACTIC ORDERD
[2022-04-07] MEDS: lidocaine 1% 5 ML in potassium chloride premix 100 ML 25 ML IV (10:55)
--- NOTE | 2022-04-07 11:17 | US_ITS ---
WS: [id number] ULTRASOUND ABDOMEN LIMITED CLINICAL INFORMATION: RUQ, ams, abd pain, elevated bili COMPARISON: Ultrasound October 16, 2021 FINDINGS: Liver Size: Enlarged Craniocaudal length: 21.7 cm. Echogenicity: Coarse Surface nodularity: None. Mass (size and location): None. Bile ducts Intrahepatic ducts: Normal. Common bile duct diameter: 0.6 cm. Gallbladder Cholelithiasis Gallstones: Present Gallbladder sludge: None. Gallbladder wall thickening: None. Pericholecystic fluid: None. Sonographic Gandara sign: Absent. Pancreas Echogenic Right kidney: Normal. Hydronephrosis: None. Size: 13.3 cm x 6.5 cm x 6.5 cm. Abdominal aorta and IVC Visualized portions are normal. Ascites: None. US/US abdomen limited [id number] IMPRESSION: 1. Hepatomegaly with coarse echogenicity suspicious for hepatocellular disease . Recommend correlation with liver function tests. 2. Cholelithiasis. No gallbladder wall thickening or pericholecystic fluid. 3. Normal common bile duct. 4. No hydronephrosis in RIGHT kidney. 5. Echogenic pancreas suspicious for pancreatitis as discussed on the concurre nt CT.
[2022-04-07 11:21] LABS: Lactic Acid level (Lactate) 2.4 mmol/L (0.5-2.2)
[2022-04-07 11:22] LABS: Magnesium 1.9 mg/dL (1.7-2.3)
[2022-04-07] MEDS: morphine 4 mg/mL SDV 1 mL 2 MG IVP (11:50)
[2022-04-07] MEDS: sodium chloride 0.9% 1,000 ML 999 ML IV (13:42)
[2022-04-07] MEDS: potassium chloride premix 100 ML 25 MEQ IV (13:42)
[2022-04-07] MEDS: lactulose oral liq 20 gm/30 mL UDC 200 GM PR ×2 (14:33→21:08)
--- NOTE | 2022-04-07 15:05 | P.HP_ITS ---
Providers/Chief Complaint Admitting Physician: Gaudencio Reyes MD Primary Care Provider: FARHAT Rivera Chief Complaint: BACK PAIN History of Present Illness Gina Jay is a 41 year old female presenting to the hospital with what I believe is confusion. She has told the emergency department she has had some back pain, some abdominal pain. When I ask her what is going on she just says yes to multiple questions. History and physical is unreliable secondary to these issues. Past medical history significant for alcohol intake, noncompliance, past IV drug use, history of discitis, hepatic encephalopathy, mental health disorder. Review of Systems General: Reports: ROS unobtainable due to mental status Medications/Allergies Home Medications Medication Instructions Recorded Confirmed Last Taken Type blood sugar diagnostic #100 ea 10/14/20 04/07/22 Unknown Rx pen needle, diabetic 29 gauge x See Rx Instructions .Route 08/18/21 04/07/22 Unknown Rx 1/2 (Comfort EZ Pen [place]) .COMPLEX #100 ea fluoxetine 20 mg capsule 60 mg PO DAILY 30 days #90 caps 12/16/21 04/07/22 Unknown Rx prazosin 1 mg capsule 2 mg PO BEDTIME 30 days #60 caps 01/10/22 04/07/22 Unknown Rx insulin glargine 100 unit/mL 20 unit (0.2 mL) SUBCUT DAILY #10 01/19/22 04/07/22 Unknown Rx subcutaneous solution (Lantus mL U-100 Insulin) insulin lispro 100 unit/mL See Rx Instructions .Route 01/19/22 04/07/22 Unknown Rx subcutaneous solution (Humalog .COMPLEX #10 mL U-100 Insulin) levothyroxine 100 mcg tablet 100 mcg PO DAILY #30 tabs 01/19/22 04/07/22 Unknown Rx blood sugar diagnostic #100 ea 02/02/22 04/07/22 Unknown Rx propranolol 40 mg tablet 40 mg PO BID #30 tabs 02/02/22 04/07/22 Unknown Rx clonidine HCl 0.1 mg tablet 0.1 mg PO BID 30 days #60 tabs 02/08/22 04/07/22 Unknown Rx folic acid 1 mg tablet 1 mg PO DAILY 30 days #30 tabs 02/08/22 04/07/22 Unknown Rx amlodipine 10 mg tablet 10 mg PO DAILY 30 days #30 tabs 03/09/22 04/07/22 Unknown Rx ibuprofen 200 mg tablet 800 mg PO Q6H PRN Pain 04/07/22 04/07/22 Unknown History oxycodone-acetaminophen 5 mg-325 1 tab PO Q6H PRN Pain 04/07/22 04/07/22 Unknown History mg tablet (Percocet) Allergies Allergy/AdvReac Type Severity Reaction Status Date / Time iodine Allergy Mild unknown Verified 03/30/22 15:59 Sulfa (Sulfonamide Allergy Mild rash Verified 03/30/22 15:59 Antibiotics) PFSH Acute PFSH: Medical History Abdominal pain Adjustment reaction with anxiety and depression Alcohol use disorder Anemia Anxiety with depression Bipolar disorder Borderline personality disorder Cholelithiasis Congestive heart failure Cystitis Diabetes mellitus, type II Drug-induced psychotic disorder FH: breast cancer in first degree relative H/O chronic hepatitis Hepatic encephalopathy Hypertension Hypertension screen Hypothyroid Meningitis Metabolic encephalopathy Methamphetamine abuse Muscle spasm Obstructive sleep apnea Opiate dependence 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 Pneumonia Polysubstance abuse Polysubstance abuse Respiratory failure with hypoxia Sepsis Staphylococcus aureus bacteremia Vitamin D deficiency Yeast dermatitis Surgical History History of Social History Smoking and tobacco status: never smoked Second hand smoke exposure: No Smoking risk assessment/counseling performed?: No Alcohol intake: never Desire information about alcohol rehabilitation?: No Counseling given: No Desire information about substance/drug rehabilitation?: No Counseling given: No Female Reproductive History: Date of last menstrual period: 10/23/20 Vitals/I&O/Wt Last Vital Signs Temp 98.3 F 04/07/22 06:18 Pulse 103 H 04/07/22 13:00 Resp 15 04/07/22 13:00 BP 163/81 04/07/22 13:00 Pulse Ox 99 04/07/22 13:00 O2 Del Method 04/07/22 13:00 04/07/22 04/07/22 04/07/22 06:59 14:59 22:59 Intake Total 1600 / 1600 Balance 1600 / 1600 Physical Exam Narrative: General exam is a white female, confused but responsive, who reports that she has some pain. When redirected with palpation she definitely says she has pain at the area of her abscess on her right buttock. HEENT: Atraumatic and normocephalic. Pupils equally round. Oropharynx clear. Neck is supple no lymphadenopathy or thyromegaly Cardiovascular regular rate and rhythm, no murmur Lungs clear no wheezing or crackles Abdomen is soft. Difficult to tell if tenderness is present. No obvious masses. Buttock demonstrates right buttock abscess with induration, some appearance of early fluctuance, erythema, and tenderness exam is deferred Extremities no cyanosis clubbing or edema. Cap refill brisk Skin pustules scattered about lower extremities and abdomen Neuro no obvious focal deficits. Some confusion. Data : 04/07/22 07:24 04/07/22 08:50 Other Labs: ABG demonstrates a pH of 7.52, PCO2 of 18, PO2 of 101 on 21% FiO2 Lactic acid 3.1 Calcium 8.0 Total bili 3.6 Alk phos 247 AST and ALT normal Ammonia 135 TSH 0.02 Urinalysis with 0-4 reds and 0-4 whites Urine drug screen undetectable salicylates and acetaminophen. Positive for benzodiazepines. Abdominal ultrasound demonstrates cholelithiasis, hepatomegaly, no hydronephrosis in the right kidney, question pancreatitis Chest x-ray negative CT abdomen and pelvis demonstrates question edema pancreas. Cholelithiasis or gallbladder sludge. Chronic changes of discitis at L4 and 5 and L5 and S1 unchanged from previous. Head CT no acute findings EKG demonstrates sinus tachycardia, borderline left axis deviation nonspecific ST-T wave changes. Micro: Microbiology 04/07/22 09:18 Blood Culture - Preliminary Blood SPECIMEN COLLECTED 04/07/22 09:18 Blood Culture - Preliminary Blood SPECIMEN COLLECTED A&P Assessment and plan (1) Abscess of right buttock: Patient with right buttock abscess. Continue IV vancomycin. Zosyn was added for concern of sepsis on arrival. Await blood culture Surgery consultation Keep n.p.o. Status: Acute (2) Confusion: May be secondary to underlying infection. Consistent with acute metabolic encephalopathy No evidence of septic shock currently. Contributing factors could be history of substance abuse, alcohol use, liver disease with high ammonia Monitor for improvement For hepatic encephalopathy, will hold off on lactulose currently. Provide IV fluids, IV antibiotics, evaluation of source of infection with surgical consultation for right buttock abscess. Repeat ammonia level tomorrow. CIWA protocol Status: Acute (3) Acute hepatic encephalopathy: See above Status: Acute (4) Acute on chronic anemia: Avoid anticoagulation currently. Protonix IV recheck hemoglobin tomorrow Status: Acute (5) Acute hypokalemia: Supplement IV Repeat potassium level Magnesium level checked. 2 g mag ordered by the emergency department. Status: Acute (6) Thrombocytopenia: Secondary to alcoholic liver disease. Monitor. Status: Acute (7) Hypothyroid: Hold thyroid hormone currently. When p.o. is initiated consider lowering dose Status: Acute Qualifiers: Hypothyroidism type: acquired Qualified Code(s): E03.9 - Hypothyroidism, unspecified Plan History of mental health disorder, drug use, alcohol use Multiple other medical problems as outlined in past medical history Attestations Medical Necessity Statement*: Will require greater than 2 midnight stay seco ndary to encephalopathy, buttocks abscess, high ammonia Critical Care Time: The high probability of a clinically significant, sudden or life threatening deterioration of the patient's [hepatic, gastrointestinal, infectious disease, neurologic] system(s) required my full and direct attention, intervention and personal management. The critical care time is as shown. This time is in addition to time spent performing any reported procedures but includes the following: [x] Data and vital sign review and interpretation [x] Patient assessment, examination and intervention [x] Documentation [x] Medication orders and management Critical Care Time (min): 59 Coding Level of Care Code Acute Safety And Health Manager for [facility] Diagnoses Abscess of right buttock L02.31 Confusion R41.0 Acute hepatic encephalopathy K72.00 Acute on chronic anemia D64.9 Acute hypokalemia E87.6 Thrombocytopenia D69.6 Hypothyroid E03.9 Hypothyroidism type: acquired
[2022-04-07] MEDS: LORazepam 2 mg Tablet PO (16:15)
[2022-04-07] MEDS: sodium chloride 0.9% 1,000 ML 100 ML IV (16:57)
[2022-04-07] MEDS: piperacillin-tazobactam 3.375 GM in sodium chloride 0.9% (plus) 50 ML IV (16:57)
[2022-04-07 17:44] LABS: Glucose Point of Care 313 mg/dL (70-110)
--- NOTE | 2022-04-07 19:11 | PC.NURSE ---
New account Please refer to previous account for missing admission information.
[2022-04-07] MEDS: vancomycin 1,500 MG/300 ML PIGGYBACK 200 MG IV (19:54)
[2022-04-07 20:51] LABS: Glucose Point of Care 285 mg/dL (70-110)
[2022-04-07] MEDS: insulin lispro 100 unit/1 mL SUBCUT (21:07)
--- NOTE | 2022-04-07 21:15 | P.CONIM_ITS ---
Providers/Reason For Consult Consulting Physician/Specialty*: Dr. Michael Gonzalez, DO/General surgery Reason for Consult*: Gluteal abscess Attending Physician: Gaudencio Reyes MD Primary Care Provider: FARHAT Rivera History of Present Illness History of Present Illness Gina Jay is a 41 year old female who is confused upon my questioning of her. She has a history of alcohol abuse, IV drug use and encephalopathy. She is hep C positive. She recently came in with some abdominal pain and confusion. She was found to have pancreatitis and a right gluteal abscess. General surgery was consulted for the gluteal abscess. Review of Systems General: Reports: ROS unobtainable due to mental status Medications/Allergies Home Medications Medication Instructions Recorded Confirmed Last Taken Type blood sugar diagnostic #100 ea 10/14/20 04/07/22 Unknown Rx pen needle, diabetic 29 gauge x See Rx Instructions .Route 08/18/21 04/07/22 Unknown Rx 1/2 (Comfort EZ Pen [place]) .COMPLEX #100 ea fluoxetine 20 mg capsule 60 mg PO DAILY 30 days #90 caps 12/16/21 04/07/22 Unknown Rx prazosin 1 mg capsule 2 mg PO BEDTIME 30 days #60 caps 01/10/22 04/07/22 Unknown Rx insulin glargine 100 unit/mL 20 unit (0.2 mL) SUBCUT DAILY #10 01/19/22 04/07/22 Unknown Rx subcutaneous solution (Lantus mL U-100 Insulin) insulin lispro 100 unit/mL See Rx Instructions .Route 01/19/22 04/07/22 Unknown Rx subcutaneous solution (Humalog .COMPLEX #10 mL U-100 Insulin) levothyroxine 100 mcg tablet 100 mcg PO DAILY #30 tabs 01/19/22 04/07/22 Unknown Rx blood sugar diagnostic #100 ea 02/02/22 04/07/22 Unknown Rx propranolol 40 mg tablet 40 mg PO BID #30 tabs 02/02/22 04/07/22 Unknown Rx clonidine HCl 0.1 mg tablet 0.1 mg PO BID 30 days #60 tabs 02/08/22 04/07/22 Unknown Rx folic acid 1 mg tablet 1 mg PO DAILY 30 days #30 tabs 02/08/22 04/07/22 Unknown Rx amlodipine 10 mg tablet 10 mg PO DAILY 30 days #30 tabs 03/09/22 04/07/22 Unknown Rx ibuprofen 200 mg tablet 800 mg PO Q6H PRN Pain 04/07/22 04/07/22 Unknown History oxycodone-acetaminophen 5 mg-325 1 tab PO Q6H PRN Pain 04/07/22 04/07/22 Unknown History mg tablet (Percocet) Allergies Allergy/AdvReac Type Severity Reaction Status Date / Time iodine Allergy Mild unknown Verified 03/30/22 15:59 Sulfa (Sulfonamide Allergy Mild rash Verified 03/30/22 15:59 Antibiotics) Current Medications Generic Name Dose Route Start Last Admin Trade Name Freq PRN Reason Stop Dose Admin Sodium Chloride 1,000 mls @ 100 mls/hr 04/07/22 15:30 04/07/22 16:57 Sodium Chloride 0.9% IV 100 mls/hr .Q10H LEILA Administration Piperacillin Sod/Tazobactam 50 mls @ 12.5 mls/hr 04/07/22 16:30 04/07/22 16:57 Sod 3.375 gm/ Sodium Chloride IV 12.5 mls/hr Q8H LEILA Administration Vancomycin/PEG/NADA/Lysine/Water 1,500 mg in 300 mls @ 200 mls/hr 04/07/22 20:00 04/07/22 19:54 Vancocin IV 200 mls/hr Q8H LEILA Administration Insulin Human Lispro 0 unit 04/07/22 18:00 04/07/22 21:07 Insulin Lispro 100 Unit/1 Ml SUBCUT 8 unit WM&BEDTIME LEILA Administration Protocol Lactulose 200 gm 04/07/22 11:30 04/07/22 21:08 Lactulose Oral Liq 20 Gm/30 Ml Udc SD 04/08/22 05:31 200 gm Q6H ELILA Administration Lorazepam 2 mg 04/07/22 15:25 04/07/22 16:15 Lorazepam 2 Mg Tablet PO 2 mg Q4H PRN Administration WITHDRAWAL Protocol PFSH Acute PFSH: Medical History Abdominal pain Adjustment reaction with anxiety and depression Alcohol use disorder Anemia Anxiety with depression Bipolar disorder Borderline personality disorder Cholelithiasis Congestive heart failure Cystitis Diabetes mellitus, type II Drug-induced psychotic disorder FH: breast cancer in first degree relative H/O chronic hepatitis Hepatic encephalopathy Hypertension Hypertension screen Hypothyroid Meningitis Metabolic encephalopathy Methamphetamine abuse Muscle spasm Obstructive sleep apnea Opiate dependence 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 Pneumonia Polysubstance abuse Polysubstance abuse Respiratory failure with hypoxia Sepsis Staphylococcus aureus bacteremia Vitamin D deficiency Yeast dermatitis Surgical History History of Social History Smoking and tobacco status: never smoked Second hand smoke exposure: No Smoking risk assessment/counseling performed?: No Alcohol intake: never Desire information about alcohol rehabilitation?: No Counseling given: No Desire information about substance/drug rehabilitation?: No Counseling given: No Female Reproductive History: Date of last menstrual period: 10/23/20 Vitals/I&O/Wt Last Vital Signs Temp 96.8 F L 04/07/22 20:00 Pulse 115 H 04/07/22 20:00 Resp 15 04/07/22 20:00 BP 163/72 04/07/22 20:00 Pulse Ox 95 04/07/22 20:00 O2 Del Method 04/07/22 20:00 04/07/22 04/07/22 04/07/22 06:59 14:59 22:59 Intake Total 1600 / 1600 1205 / 2805 Balance 1600 / 1600 1205 / 2805 Weight last 48 hrs Weight 232 lb 3.2 oz Weight 232 lb 3.2 oz Physical Exam Narrative: General: No acute distress, confused Abdomen: Soft, nondistended, mild epigastric tenderness, no guarding rebound or masses Skin: Pain and induration with fluctuance to right gluteus Data : 04/08/22 04:47 04/08/22 04:47 Micro: Microbiology 04/07/22 09:18 Blood Culture - Preliminary Blood SPECIMEN COLLECTED 04/07/22 09:18 Blood Culture - Preliminary Blood SPECIMEN COLLECTED A&P Assessment and plan (1) Abscess, gluteal, right: Status: Acute (2) Acute hypokalemia: Status: Acute Plan Incision and drainage of right gluteal abscess The risks and benefits of the procedure, including but not limited to, bleeding, infection, recurrence, scar, numbness, pain, damage to surrounding structures, were explained to the patient. She is understanding of the risks and wishes to proceed. We will wait for potassium replacement to proceed with the procedure. Coding Level of Care Code Acute Farm Machine Operator for [facility] Diagnoses Abscess, gluteal, right L02.31 Acute hypokalemia E87.6
[2022-04-07] MEDS: LORazepam 2 mg/mL INJ 1 mL IVP (21:38)
[2022-04-07 22:12] LABS: HCG, Serum Qual Negative (Negative)
[2022-04-07 23:14] LABS: Blood Urea Nitrogen 6 mg/dL (6-20); Calcium 7.8 mg/dL (8.5-10.5); Carbon Dioxide 14 mmol/L (22-29); Glucose 222 mg/dL (65-115); Osmolality Calculated 288 mOsm/kg (285-295); Sodium 137 mmol/L (136-145)
[2022-04-07 23:24] LABS: Chloride 110 mmol/L (98-107)
[2022-04-07 23:40] LABS: Anion Gap 14.9 (5-19); Potassium 1.9 mmol/L (3.5-5.1)
[2022-04-08] VITALS (25 sets, daily range): BP systolic 128–192; BP diastolic 75–110; PULSE 85–114; RESP 14–40; TEMP 36.6–37.6; O2SAT 90–100
[2022-04-08] MEDS: LORazepam 2 mg/mL INJ 1 mL IM (00:20)
[2022-04-08] MEDS: potassium chloride ER 20 mEq Tablet PO (00:20)
[2022-04-08] MEDS: piperacillin-tazobactam 3.375 GM in sodium chloride 0.9% (plus) 50 ML IV ×3 (00:21→16:07)
[2022-04-08] MEDS: lactulose oral liq 20 gm/30 mL UDC 200 GM PR (03:02)
[2022-04-08] MEDS: vancomycin 1,500 MG/300 ML PIGGYBACK 200 MG IV ×2 (04:42→13:23)
[2022-04-08 04:57] LABS: Basophils # 0.1 10^3/uL (0.0-0.1); Basophils % 0.4 %; Eosinophils % 0.3 %; Hemoglobin 7.3 g/dL (11.5-15.3); Lymphocytes # 1.1 10^3/uL (0.8-4.8); Mean Corpuscular HGB Conc 29.2 g/dL (30.0-36.0); Mean Corpuscular Hemoglobin 21.9 pg (28.0-34.0); Mean Corpuscular Volume 74.9 fl (81-99); Monocytes % 7.3 %; Neutrophils # 10.99 10^3/uL (1.8-7.7); Neutrophils % 83.3 %; Nucleated Red Blood Cells % 0 %; Platelet Count 72 10^3/cmm (130-400); Red Blood Count 3.34 10^6/uL (4.1-5.3); Red Cell Distribution Width 23.4 % (12.1-15.1); White Blood Count 13.2 10^3/uL (4.0-10.0)
[2022-04-08 05:07] LABS: Positive M 1
[2022-04-08 05:16] LABS: Alanine Aminotransferase 9 U/L (0-33); Albumin Level 2.2 g/dL (3.5-5.2); Alkaline Phosphatase 205 U/L (35-105); Aspartate Amino Transferase 22 U/L (0-32); Blood Urea Nitrogen 7 mg/dL (6-20); Calcium 7.8 mg/dL (8.5-10.5); Carbon Dioxide 16 mmol/L (22-29); Chloride 112 mmol/L (98-107); Globulin 3.8 g/dL (1.3-4.6); Glomerular Filtration Rate 175.9 mL/min (90-130); Glucose 206 mg/dL (65-115); Osmolality Calculated 294 mOsm/kg (285-295); Sodium 140 mmol/L (136-145); Total Bilirubin 3.4 mg/dL (0.15-1.2)
[2022-04-08 05:17] LABS: Ammonia 123 umol/L (11-51)
[2022-04-08] MEDS: potassium chloride premix 100 ML 25 MEQ IV (05:57)
[2022-04-08 07:31] LABS: Magnesium 1.8 mg/dL (1.7-2.3)
[2022-04-08 07:41] LABS: Glucose Point of Care 208 mg/dL (70-110)
[2022-04-08] MEDS: insulin lispro 100 unit/1 mL SUBCUT ×4 (07:56→21:32)
[2022-04-08] MEDS: propranolol 40 mg Tablet PO (09:18)
[2022-04-08] MEDS: pantoprazole 40 mg SDV IVP (09:19)
[2022-04-08] MEDS: fluoxetine 20 mg Capsule 60 MG PO (09:19)
[2022-04-08] MEDS: sodium chloride 0.9% 1,000 ML 100 ML IV (09:21)
--- NOTE | 2022-04-08 10:35 | PC.CHAP ---
Pastoral Care Encounter/Spiritual Assessment Type of Contact [] Declined ice handler visit [] Patient/Family/Request visit [] Outpatient visit [] Follow-up visit [] Physician referral [] Code/Alert [x] Routine visit [] Staff referral [] Actively dying [x] Patient sleeping [] Family support [] [] Out of room [] Palliative care [] [] Receiving care in room [] Pre-surgical visit [] Trauma [] Long length of stay [x] ICU visit [] Other: Relational/Emotional Strength [] Patient feels connected with others/family/visitors/staff [] Distress [] Loneliness/isolation [] Abandonment Spirituality of Patient [] Person of Connie [] Attends Zoroastrian of their Connie [] Believes in Prayer [] Reads Bible or Scientology materials [] There are Spiritual issues to be addressed Bladder Trimmer Interventions [x] Prayer [] Active listening [] Non-anxious presence [] Spiritual/emotional support [] Crisis/trauma care [] Spiritual counseling [] Bereavement support [] Provided bereavement packet [] Provided Bible/devotional materials [] Provided toy/stuffed animal, coloring book to patient or family member [] Provided Communion [] Anointing/[place] [] Salvation [x] Completed spiritual assessment [] Other: Impact on Illness or Injury [] Angry [] Fearful [] Anxious [] Often cries [] Exhaustion [] Unable to work [] Unable to attend sabianist [] Unable to walk/stand [] Unable to read [] Unable to drive [] Unable to eat/drink [] Unable to sleep [] Unable to be with family [] Patient intubated [] Other: Summary Time spent with patient
--- NOTE | 2022-04-08 11:05 | PM.PN ---
Subjective Subjective: Patient seen and examined. No acute changes. 2 AM potassium was not given Vitals/I&O/Wt Last Vital Signs Temp 98.4 F 04/08/22 07:30 Pulse 87 04/08/22 10:00 Resp 21 H 04/08/22 10:00 BP 163/98 04/08/22 10:00 Pulse Ox 96 04/08/22 09:00 O2 Del Method 04/08/22 09:00 04/07/22 04/08/22 04/08/22 22:59 06:59 14:59 Intake Total 1755 / 3355 1340 / 4695 100 / 100 Balance 1755 / 3355 1340 / 4695 100 / 100 Weight last 48 hrs Weight 231 lb 8 oz Weight 232 lb 3.2 oz Weight 232 lb 3.2 oz Physical Exam Const: OTHER: No acute distress Abdomen soft nondistended mild epigastric tenderness no guarding or rebound Skin: Right gluteal abscess Data : 04/08/22 04:47 04/08/22 04:47 Micro: Microbiology 04/07/22 09:18 Blood Culture - Preliminary Blood NEGATIVE TO DATE 04/07/22 09:18 Blood Culture - Preliminary Blood NEGATIVE TO DATE A&P Assessment and plan (1) Abscess, gluteal, right: Status: Acute (2) Acute hypokalemia: Status: Acute Plan Incision and drainage of right gluteal abscess The risks and benefits of the procedure, including but not limited to, bleeding, infection, recurrence, scar, numbness, pain, damage to surrounding structures, were explained to the patient. She is understanding of the risks and wishes to proceed. We will wait until tomorrow morning, for potassium replacement, to proceed with the procedure. Attestations Medical Necessity Statement*: Patient requires at least 1 more night in the hospital and likely more for potassium replacement. We will proceed with incision and drainage of gluteal abscess in the morning. Coding Level of Care Code Acute Recovery Coordinator for [facility] Diagnoses Abscess, gluteal, right L02.31 Acute hypokalemia E87.6
--- NOTE | 2022-04-08 11:18 | P.PN_ITS ---
Subjective Subjective: Gina awakens easily and answers few questions. She reports she has pain in her buttock when prompted. No chest pain or shortness of breath. Medications: Reviewed: Yes Vitals/I&O/Wt Last Vital Signs Temp 98.4 F 04/08/22 07:30 Pulse 87 04/08/22 10:00 Resp 21 H 04/08/22 10:00 BP 163/98 04/08/22 10:00 Pulse Ox 96 04/08/22 09:00 O2 Del Method 04/08/22 09:00 04/07/22 04/08/22 04/08/22 22:59 06:59 14:59 Intake Total 1755 / 3355 1340 / 4695 100 / 100 Balance 1755 / 3355 1340 / 4695 100 / 100 Weight last 48 hrs Weight 105.007 kg Weight 105.324 kg Weight 105.324 kg Physical Exam Narrative: General exam is a white female, conversant Neck is supple no lymphadenopathy or thyromegaly Cardiovascular regular rate and rhythm, no murmur Lungs clear no wheezing or crackles Abdomen is soft. Difficult to tell if tenderness is present. No obvious masses. Buttock demonstrates right buttock abscess with induration, some appearance of early fluctuance, erythema, and tenderness. Unchanged from previous. exam is deferred Extremities no cyanosis clubbing or edema. Cap refill brisk Skin pustules scattered about lower extremities and abdomen. Overall unchanged Neuro no obvious focal deficits. Data : 04/08/22 04:47 04/08/22 04:47 Micro: Microbiology 04/07/22 09:18 Blood Culture - Preliminary Blood NEGATIVE TO DATE 04/07/22 09:18 Blood Culture - Preliminary Blood NEGATIVE TO DATE A&P Assessment and plan (1) Abscess of right buttock: Patient with right buttock abscess. Continue IV vancomycin. Zosyn was added for concern of sepsis on arrival. Await blood culture Appreciate surgical consultation Keep n.p.o. Status: Acute (2) Confusion: May be secondary to underlying infection. Consistent with acute metabolic encephalopathy No evidence of septic shock currently. Contributing factors could be history of substance abuse, alcohol use, liver disease with high ammonia She appears to be improving For hepatic encephalopathy, will hold off on lactulose currently. Provide IV fluids, IV antibiotics, evaluation of source of infection with surgical consultation for right buttock abscess. Repeat ammonia level again tomorrow. Would like to initiate lactulose if it is causing some issues but with her profound hypokalemia, I am reluctant currently as she is clinically stable. CIIN protocol Status: Acute (3) Acute hepatic encephalopathy: See above Status: Acute (4) Acute on chronic anemia: Avoid anticoagulation currently. Protonix IV will be continued No evidence of active bleeding. Hemoglobin has drifted down as expected with hydration. Status: Acute (5) Acute hypokalemia: Supplement with potassium phosphate. Repeat potassium following this. Unfortunately she did not get potassium early in the morning that was ordered prior to her blood draw. Magnesium level currently normal. Status: Acute (6) Thrombocytopenia: Secondary to alcoholic liver disease. Monitor. Status: Acute (7) Hypothyroid: Diminished TSH. Restart thyroid hormone, half dose Status: Acute Qualifiers: Hypothyroidism type: acquired Qualified Code(s): E03.9 - Hypothyroidism, unspecified Plan History of mental health disorder, drug use, alcohol use Multiple other medical problems as outlined in past medical history Attestations Medical Necessity Statement*: Needs continued hospitalization secondary to encephalopathy, buttocks abscess, anemia, severe electrolyte abnormality Critical Care Time: The high probability of a clinically significant, sudden or life threatening deterioration of the patient's [renal, electrolyte, infectious disease] system(s) required my full and direct attention, intervention and personal management. The critical care time is as shown. This time is in addition to time spent performing any reported procedures but includes the following: [x] Data and vital sign review and interpretation [x] Patient assessment, examination and intervention [x] Documentation [x] Medication orders and management Critical Care Time (min): 30 Coding Level of Care Code Acute General Foundry Worker for [facility] Diagnoses Abscess of right buttock L02.31 Confusion R41.0 Acute hepatic encephalopathy K72.00 Acute on chronic anemia D64.9 Acute hypokalemia E87.6 Thrombocytopenia D69.6 Hypothyroid E03.9 Hypothyroidism type: acquired
[2022-04-08] MEDS: lidocaine 1% 5 ML in potassium chloride premix 100 ML 25 ML IV ×2 (11:37→21:26)
[2022-04-08] MEDS: LORazepam 2 mg/mL INJ 1 mL IVP ×3 (11:38→22:27)
[2022-04-08 12:56] LABS: Glucose Point of Care 234 mg/dL (70-110)
[2022-04-08] MEDS: lactulose oral liq 20 gm/30 mL UDC 30 GM PO (15:23)
[2022-04-08 15:43] LABS: Blood Urea Nitrogen 8 mg/dL (6-20); Calcium 8.2 mg/dL (8.5-10.5); Carbon Dioxide 15 mmol/L (22-29); Chloride 114 mmol/L (98-107); Glomerular Filtration Rate 175.9 mL/min (90-130); Glucose 183 mg/dL (65-115); Osmolality Calculated 295 mOsm/kg (285-295); Sodium 141 mmol/L (136-145)
[2022-04-08 15:56] LABS: Anion Gap 14.3 (5-19)
[2022-04-08 15:57] LABS: Potassium 2.3 mmol/L (3.5-5.1)
[2022-04-08 17:41] LABS: Glucose Point of Care 197 mg/dL (70-110)
[2022-04-08 18:58] LABS: Vancomycin Trough 24.4 ug/mL (10-15)
--- NOTE | 2022-04-08 18:58 | PC.NURSE ---
Patient unable to properly swallow rifaximin 550mg. Dr. Reyes notified of patients difficulty. IV medication to be added this evening for patients increased blood pressure.
[2022-04-08] MEDS: hyDRALAzine 20 mg/mL INJ 1 mL 10 MG IVP (19:20)
[2022-04-08 19:29] LABS: Potassium 2.4 mmol/L (3.5-5.1)
[2022-04-08] MEDS: morphine 4 mg/mL SDV 1 mL 2 MG IVP (19:54)
--- NOTE | 2022-04-08 19:55 | PC.NURSE ---
Morphine Pt states they are in pain but was unable to state a location. BP increased, RR 30, pt is tearfull, and restless. Morphine 2mg given @1954, ravi would not scan, waste placed in sharps container with Nilam PURCELL.
[2022-04-08 20:46] LABS: Glucose Point of Care 160 mg/dL (70-110)
--- NOTE | 2022-04-08 21:27 | PC.NURSE ---
Manual admin Potassium Unable to scan lidocaine 5ml to go in Potassium bag. Pharmacy consulted, issue was unable to resolved. Manual administration.
--- NOTE | 2022-04-08 21:39 | PC.NURSE ---
Nonadmin PO meds pt unable to swallow PO meds at this time.
[2022-04-08] MEDS: labetalol 5 mg/mL SDV 20mL 10 MG IVP (23:01)
[2022-04-09] VITALS (55 sets, daily range): BP systolic 126–186; BP diastolic 62–119; PULSE 70–92; RESP 17–37; TEMP 36.2–37.6; O2SAT 94–100
[2022-04-09] MEDS: piperacillin-tazobactam 3.375 GM in sodium chloride 0.9% (plus) 50 ML IV ×4 (00:06→23:45)
[2022-04-09] MEDS: vancomycin 1,500 MG/300 ML PIGGYBACK 200 MG IV ×2 (01:21→15:27)
[2022-04-09] MEDS: lidocaine 1% 5 ML in potassium chloride premix 100 ML 25 ML IV ×3 (01:35→21:01)
[2022-04-09] MEDS: hyDRALAzine 20 mg/mL INJ 1 mL 10 MG IVP ×2 (01:42→15:44)
[2022-04-09 05:44] LABS: Basophils # 0.1 10^3/uL (0.0-0.1); Basophils % 0.4 %; Eosinophils # 0.1 10^3/uL (0.0-0.8); Eosinophils % 0.7 %; Hematocrit 29.6 % (37.0-47.0); Hemoglobin 8.7 g/dL (11.5-15.3); Lymphocytes # 1.4 10^3/uL (0.8-4.8); Lymphocytes % 8.6 %; Mean Corpuscular HGB Conc 29.4 g/dL (30.0-36.0); Mean Corpuscular Hemoglobin 22.4 pg (28.0-34.0); Mean Corpuscular Volume 76.1 fl (81-99); Mean Platelet Volume 9.5 fL (7.4-10.4); Monocytes # 1.6 10^3/uL (0.2-0.9); Monocytes % 9.4 %; Neutrophils # 13.17 10^3/uL (1.8-7.7); Neutrophils % 79.7 %; Nucleated Red Blood Cells % 0.1 %; Platelet Count 100 10^3/cmm (130-400); Positive M 1; Red Blood Count 3.89 10^6/uL (4.1-5.3); Red Cell Distribution Width 23.9 % (12.1-15.1); White Blood Count 16.5 10^3/uL (4.0-10.0)
--- NOTE | 2022-04-09 05:51 | PC.NURSE ---
Nonadmin Levothyroxine 50 mcg PO Pt unable to safely swallow at this time. Dr. Remy notified. No new orders at this time.
[2022-04-09 06:09] LABS: Alanine Aminotransferase 11 U/L (0-33); Albumin Level 2.4 g/dL (3.5-5.2); Alkaline Phosphatase 249 U/L (35-105); Anion Gap 17.5 (5-19); Aspartate Amino Transferase 31 U/L (0-32); Blood Urea Nitrogen 9 mg/dL (6-20); Calcium 8.3 mg/dL (8.5-10.5); Carbon Dioxide 11 mmol/L (22-29); Chloride 120 mmol/L (98-107); Globulin 4.4 g/dL (1.3-4.6); Glomerular Filtration Rate 175.9 mL/min (90-130); Glucose 193 mg/dL (65-115); Osmolality Calculated 306 mOsm/kg (285-295); Phosphorus 1.5 mg/dL (2.5-4.5); Sodium 146 mmol/L (136-145); Total Bilirubin 4.5 mg/dL (0.15-1.2); Total Protein 6.8 g/dL (6.6-8.7)
[2022-04-09] MEDS: LORazepam 2 mg/mL INJ 1 mL IVP (06:09)
[2022-04-09 06:13] LABS: Ammonia 156 umol/L (11-51)
[2022-04-09 06:32] LABS: Potassium 2.5 mmol/L (3.5-5.1)
[2022-04-09 06:34] LABS: Glucose Point of Care 198 mg/dL (70-110)
--- NOTE | 2022-04-09 06:45 | P.ANESASSM_ITS ---
Pre-Anesthetic Assessment Height/Weight: Height 1.75 m Weight 99.926 kg Temp Pulse Resp BP Pulse Ox O2 Del Method 98.3 F 80 31 H 154/94 97 04/09/22 05:16 04/09/22 06:15 04/09/22 06:00 04/09/22 06:00 04/09/22 06:00 04/09/22 06:00 Operation Date: 04/09/22 07:00 Proposed Procedures p Incision And Drainage right gluteal(Right) - Michael Gonzalez DO Familial anesthetic complications: None Was Beta Amelia taken within 24 hours: N/A Was Clonidine taken within 24 hours: N/A Last intake: > 8hrs Social Alcohol and Tobacco Exam clear to auscultation bilaterally and regular rate & rhythm Airway Dentition: chipped Comments: Comments: patient not cooperating with exam d/t mental status - history obtained from daughter Pulmonary Sleep Apnea CV/HEM Anemia and Hypertension thrombocytopenia pacnreatitits Hepatic hep c GI pacnreatitis Metabolic hypokalemia resistant to multiple doses of treatment Neuropsych hepatic enceophalopathy Anesthetic Plan ASA status: 4 Anesthesia: General Risk of > 500 ml blood loss (7ml/kg in children): No Medications/Allergies Home Medications Medication Instructions Recorded Confirmed Last Taken Type blood sugar diagnostic #100 ea 10/14/20 04/07/22 Unknown Rx pen needle, diabetic 29 gauge x See Rx Instructions .Route 08/18/21 04/07/22 Unknown Rx 1/2 (Comfort EZ Pen Phillips) .COMPLEX #100 ea fluoxetine 20 mg capsule 60 mg PO DAILY 30 days #90 caps 12/16/21 04/07/22 Unknown Rx prazosin 1 mg capsule 2 mg PO BEDTIME 30 days #60 caps 01/10/22 04/07/22 Unknown Rx insulin glargine 100 unit/mL 20 unit (0.2 mL) SUBCUT DAILY #10 01/19/22 04/07/22 Unknown Rx subcutaneous solution (Lantus mL U-100 Insulin) insulin lispro 100 unit/mL See Rx Instructions .Route 01/19/22 04/07/22 Unknown Rx subcutaneous solution (Humalog .COMPLEX #10 mL U-100 Insulin) levothyroxine 100 mcg tablet 100 mcg PO DAILY #30 tabs 01/19/22 04/07/22 Unknown Rx blood sugar diagnostic #100 ea 02/02/22 04/07/22 Unknown Rx propranolol 40 mg tablet 40 mg PO BID #30 tabs 02/02/22 04/07/22 Unknown Rx clonidine HCl 0.1 mg tablet 0.1 mg PO BID 30 days #60 tabs 02/08/22 04/07/22 Unknown Rx folic acid 1 mg tablet 1 mg PO DAILY 30 days #30 tabs 02/08/22 04/07/22 Unknown Rx amlodipine 10 mg tablet 10 mg PO DAILY 30 days #30 tabs 03/09/22 04/07/22 Unknown Rx ibuprofen 200 mg tablet 800 mg PO Q6H PRN Pain 04/07/22 04/07/22 Unknown History oxycodone-acetaminophen 5 mg-325 1 tab PO Q6H PRN Pain 04/07/22 04/07/22 Unknown History mg tablet (Percocet) Allergies Allergy/AdvReac Type Severity Reaction Status Date / Time iodine Allergy Mild unknown Verified 03/30/22 15:59 Sulfa (Sulfonamide Allergy Mild rash Verified 03/30/22 15:59 Antibiotics) Current Medications Generic Name Dose Route Start [facility] Reason Stop Dose Admin Fluoxetine HCl 60 mg 04/08/22 09:00 04/08/22 09:19 Fluoxetine 20 Mg Capsule PO 60 mg DAILY LEILA Administration Folic Acid 1 mg 04/08/22 09:00 04/08/22 09:27 Folic Acid 1 Mg Tablet PO Not Given DAILY [facility] Hydralazine HCl 10 mg 04/08/22 18:56 04/09/22 01:42 Hydralazine 20 Mg/Ml Inj 1 Ml IVP 10 mg Q4H PRN Administration HYPERTENSION Piperacillin Sod/Tazobactam 50 mls @ 12.5 mls/hr 04/07/22 16:30 04/09/22 0 4:15 Sod 3.375 gm/ Sodium Chloride IV Infused Q8H LEILA Infusion Vancomycin/PEG/NADA/Lysine/Water 1,500 mg in 300 mls @ 200 mls/hr 04/09/22 02:00 04/09/22 02:55 Vancocin IV Infused Q12H LEILA Infusion Insulin Human Lispro 0 unit 04/07/22 18:00 04/08/22 21:32 Insulin Lispro 100 Unit/1 Ml SUBCUT 2 unit WM&BEDTIME LEILA Administration Protocol Lactulose 30 gm 04/08/22 15:15 04/09/22 03:22 Lactulose Oral Liq 20 Gm/30 Ml Udc PO Not Given Q6H LEILA Levothyroxine Sodium 50 mcg 04/09/22 06:00 04/09/22 05:50 Levothyroxine 50 Mcg Tablet PO Not Given QAM LEILA Lorazepam 2 mg 04/07/22 15:25 04/08/22 00:20 Lorazepam 2 Mg/Ml Inj 1 Ml IM 2 mg Q4H PRN Administration ALCOWD Protocol Lorazepam 2 mg 04/07/22 15:25 04/09/22 06:09 Lorazepam 2 Mg/Ml Inj 1 Ml IVP 2 mg PRN PRN Administration WITHDRAWAL Protocol Lorazepam 2 mg 04/07/22 15:25 04/07/22 16:15 Lorazepam 2 Mg Tablet PO 2 mg Q4H PRN Administration WITHDRAWAL Protocol Morphine Sulfate 2 mg 04/08/22 19:27 04/08/22 19:54 Morphine 4 Mg/Ml Sdv 1 Ml IVP 2 mg Q6H PRN Administration SEVERE PAIN Multivitamins Therapeutic 1 tab 04/08/22 09:00 04/08/22 09:27 Multivitamin Therapeutic Tablet PO Not Given DAILY LEILA Pantoprazole Sodium 40 mg 04/08/22 09:00 04/08/22 09:19 Pantoprazole 40 Mg Sdv IVP 40 mg DAILY LEILA Administration Propranolol HCl 40 mg 04/08/22 09:00 04/08/22 21:34 Propranolol 40 Mg Tablet PO Not Given BID@0900,2100 LEILA Rifaximin 550 mg 04/08/22 18:00 04/08/22 18:15 Rifaximin 550 Mg Tablet PO 550 mg BID LEILA Administration Protocol Thiamine HCl 100 mg 04/08/22 09:00 04/08/22 09:19 Thiamine 100 Mg/Ml Sdv IVP 100 mg DAILY LEILA Administration [facility] Anesthesia Medical History Abdominal pain Adjustment reaction with anxiety and depression Alcohol use disorder Anemia Anxiety with depression Bipolar disorder Borderline personality disorder Cholelithiasis Congestive heart failure Cystitis Diabetes mellitus, type II Drug-induced psychotic disorder FH: breast cancer in first degree relative H/O chronic hepatitis Hepatic encephalopathy Hypertension Hypertension screen Hypothyroid Meningitis Metabolic encephalopathy Methamphetamine abuse Muscle spasm Obstructive sleep apnea Opiate dependence 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 Pneumonia Polysubstance abuse Polysubstance abuse Respiratory failure with hypoxia Sepsis Staphylococcus aureus bacteremia Vitamin D deficiency Yeast dermatitis Surgical History History of Social History Smoking and tobacco status: never smoked Second hand smoke exposure: No Smoking risk assessment/counseling performed?: No Alcohol intake: never Desire information about alcohol rehabilitation?: No Counseling given: No Desire information about substance/drug rehabilitation?: No Counseling given: No Female Reproductive History Date of last menstrual period: 10/23/20 Data Anesthesia : 04/09/22 04:15 04/09/22 04:15 Short CBC 04/07/22 04/08/22 04/09/22 Range/Units 07:24 04:47 04:15 WBC 17.7 H 13.2 H 16.5 H (4.0-10.0) 10^3/uL Hgb 7.7 L 7.3 L 8.7 L (11.5-15.3) g/dL Hct 25.0 L 25.0 L 29.6 L (37.0-47.0) % MCV 73.1 L 74.9 L 76.1 L (81-99) fl Plt Count 73 L 72 L 100 L D (130-400) 10^3/cmm Neut % (Auto) 87.8 83.3 79.7 % Neut # (Auto) 15.53 H 10.99 H 13.17 H (1.8-7.7) 10^3/uL BMP 04/07/22 04/07/22 04/07/22 07:24 07:24 08:50 Sodium 132 L Potassium 1.9 L* Cancelled 1.9 L* Chloride 101 Carbon Dioxide 15 L BUN 6 Creatinine 0.5 Glucose 330 H Calcium 8.0 L 04/07/22 04/07/22 04/08/22 20:25 21:26 04:47 Sodium 137 Cancelled 140 Potassium 1.9 L* Cancelled 2.0 L* Chloride 110 H Cancelled 112 H Carbon Dioxide 14 L Cancelled 16 L BUN 6 Cancelled 7 Creatinine 0.5 Cancelled 0.4 L Glucose 222 H Cancelled 206 H Calcium 7.8 L Cancelled 7.8 L 04/08/22 04/08/22 04/09/22 14:49 18:03 04:15 Sodium 141 146 H Potassium 2.3 L* 2.4 L* 2.5 L* Chloride 114 H 120 H Carbon Dioxide 15 L 11 L BUN 8 9 Creatinine 0.4 L 0.4 L Glucose 183 H 193 H Calcium 8.2 L 8.3 L Liver Function 04/07/22 04/08/22 04/09/22 Range/Units 07:24 04:47 04:15 Total Bilirubin 3.6 H 3.4 H 4.5 H (0.15-1.2) mg/dL Direct Bilirubin 2.40 H (0.00-0.30) mg/dL AST 25 22 31 (0-32) U/L ALT 11 9 11 (0-33) U/L Alkaline Phosphatase 247 H 205 H 249 H (35-105) U/L Albumin 2.7 L 2.2 L 2.4 L (3.5-5.2) g/dL Urine 04/07/22 Range/Units 08:45 Urine Color Yellow (Yellow) Urine Appearance Clear (CLEAR) Urine pH 7 (5-7) Ur Specific [place] 1.000 L (1.005-1.030) Urine Protein Neg (Negative) Urine Glucose (UA) Norm (Normal) Urine Ketones 1+ H (Negative) Urine Nitrate Negative (Negative) Urine Bilirubin 1+ H (Negative) Ur Leukocyte Esterase Trace H (Negative) Urine RBC 0-4 H (0-2) /hpf Urine WBC 0-4 H (0-5) /hpf ABG 04/07/22 07:00 Specimen Type Arterial Sample Site Radial, right ABG pH 7.52 H ABG pCO2 18.5 L* ABG pO2 101.0 H ABG HCO3 15.1 L ABG Base Excess -6.7 L O2 Delivery Device Room air FiO2 21.0 Microbiology 04/07/22 09:18 Blood Culture - Preliminary Blood NEGATIVE TO DATE 04/07/22 09:18 Blood Culture - Preliminary Blood NEGATIVE TO DATE Cardiac Studies: Echocardiogram 03/29/21 Transesophageal Echocardiogram 02/24/21
--- NOTE | 2022-04-09 06:58 | PC.NURSE ---
Bedside report completed with BINH Freitas and BINH Delacruz.
--- NOTE | 2022-04-09 07:01 | W.PM.OPSUD ---
Surgery/Procedure H&P Update DATE OF PROCEDURE: April 09, 2022 DATE H&P PERFORMED: 04/07/22 PLANNED PROCEDURE: Operation Date: 04/09/22 07:00 Proposed Procedures p Incision And Drainage right gluteal(Right) - Michael Gonzalez DO
[2022-04-09] MEDS: sodium chloride 0.9% 1,000 ML 30 ML IV ×3 (07:17→09:46)
--- NOTE | 2022-04-09 07:51 | PM.OP ---
Operative Report Date of procedure: April 09, 2022 Pre-op diagnosis: Right gluteal abscess Post-op diagnosis: same Procedure done: Incision and drainage of right gluteal abscess Specimens removed/disposition: Cultures Surgeon: Dr. Michael Gonzalez DO Anesthesia: General Estimated blood loss (mL): 5 Complications: None apparent Brief History: 41-year-old female with right gluteal abscess. The risks and benefits of procedure, including but not limited to, bleeding, infection, recurrence, damage to surrounding structures, fistula, or explained to the patient's daughter. She is understanding of the risks and wished to proceed. Procedure: General anesthesia was achieved by department anesthesia. A timeout was performed all present were in agreement. The right gluteus was inspected prepped and draped in usual sterile fashion. 2% lidocaine with epinephrine was used to anesthetize an already draining sinus. A 15 blade scalpel was then used to make a 1.5 cm incision on the right gluteus. Hemostats were used to break abscess cavities. Purulence was expelled. Cultures were taken. A counterincision was then made more laterally after using 2% lidocaine with epinephrine. Again hemostats were used to break abscess cavities and drained purulence. The cavity was then flushed with normal saline. Half-inch plain packing strips were placed into the wounds. Sterile bandage was applied. Patient tolerated the procedure well.
[2022-04-09 08:53] LABS: Glucose Point of Care 216 mg/dL (70-110)
[2022-04-09] MEDS: insulin lispro 100 unit/1 mL SUBCUT ×4 (09:44→20:58)
[2022-04-09] MEDS: pantoprazole 40 mg SDV IVP (09:44)
--- NOTE | 2022-04-09 11:03 | P.PN_ITS ---
Subjective Subjective: Gina awakens briefly when I enter the room. It appears her IV fluids were discontinued for some reason. She is confused. Medications: Reviewed: Yes Vitals/I&O/Wt Last Vital Signs Temp 98.3 F 04/09/22 05:16 Pulse 84 04/09/22 07:15 Resp 27 H 04/09/22 07:15 BP 181/88 04/09/22 07:15 Pulse Ox 97 04/09/22 07:15 O2 Del Method 04/09/22 07:15 04/08/22 04/09/22 04/09/22 22:59 06:59 14:59 Intake Total 872.083 / 1605.000 558.75 / 2163.750 34 / 34 Output Total 2275 / 2275 1476 / 3751 Balance -1402.917 / -670.000 -917.25 / -1587.250 34 / 34 Weight last 48 hrs Weight 99.926 kg Weight 105.007 kg Weight 105.324 kg Weight 105.324 kg Physical Exam Narrative: General exam is a white female, confused Neck is supple no lymphadenopathy or thyromegaly Cardiovascular regular rate and rhythm, no murmur Lungs clear no wheezing or crackles Abdomen is soft. Difficult to tell if tenderness is present. No obvious masses. Buttock demonstrates right buttock abscess with induration, erythema. Repeat exam following surgery demonstrates a large bandage exam Boykin Extremities no cyanosis clubbing or edema. Cap refill brisk Skin pustules scattered about lower extremities and abdomen. Overall unchanged Neuro no obvious focal deficits. Urinary Catheter Management: Boykin: Cath Placed During This Visit: yes Reason for Continuing Indwelling Catheter: Assist Healing of Perineal & Sacral Wounds- Incontinent Patients Urinary Catheter Date of Insertion: 04/08/22 Urinary Catheter Time of Insertion: 10:30 Data : 04/09/22 04:15 04/09/22 04:15 Micro: Microbiology 04/07/22 09:18 Blood Culture - Preliminary Blood NEGATIVE TO DATE 04/07/22 09:18 Blood Culture - Preliminary Blood NEGATIVE TO DATE A&P Assessment and plan (1) Abscess of right buttock: Patient with right buttock abscess. She is directly postoperative incision and drainage Continue IV vancomycin. Zosyn was added for concern of sepsis on arrival. Blood cultures negative to date Appreciate surgical consultation Status: Acute (2) Confusion: May be secondary to underlying infection. Consistent with acute metabolic encephalopathy No evidence of septic shock currently. Contributing factors could be history of substance abuse, alcohol use, liver disease with high ammonia She appears to be improving For hepatic encephalopathy, lactulose initiated. If she is still having issues waking up today and taking orally consider rectal. Provide IV fluids, IV antibiotics, evaluation of source of infection with surgical consultation for right buttock abscess. Rifaximin started as well. [facility] protocol Status: Acute (3) Acute hepatic encephalopathy: See above Initiating lactulose, rifaximin Status: Acute (4) Acute on chronic anemia: Avoid anticoagulation currently. Protonix IV will be continued No evidence of active bleeding. Hemoglobin has drifted down as expected with hydration. Status: Acute (5) Acute hypokalemia: Supplement potassium again today. Place potassium and IV fluids. Magnesium level currently normal. Status: Acute (6) Thrombocytopenia: Secondary to alcoholic liver disease. Monitor. Status: Acute (7) Hypothyroid: Diminished TSH. Restart thyroid hormone, half dose Status: Acute Qualifiers: Hypothyroidism type: acquired Qualified Code(s): E03.9 - Hypothyroidism, unspecified Plan Metabolic acidosis. For some reason fluids were discontinued last night. Restart with D5 half-normal saline with 20 mill equivalents of potassium per liter to 100 cc an hour. Diabetes mellitus. Lantus 10 units subcu daily. Sliding scale insulin. History of mental health disorder, drug use, alcohol use Multiple other medical problems as outlined in past medical history Family has some concerns secondary to her chronic alcoholism and inability to care for herself she will need nursing facility placement. Discharge planning is arranging this based on family's wishes. Attestations Medical Necessity Statement*: Needs continued hospitalization secondary to severe illness with hepatic encephalopathy, severe hypokalemia, buttocks abscess. Critical Care Time: The high probability of a clinically significant, sudden or life threatening deterioration of the patient's [endocrine, renal, electr olyte, infectious disease] system(s) required my full and direct attention, intervention and personal management. The critical care time is as shown. This time is in addition to time spent performing any reported procedures but includes the following: [x] Data and vital sign review and interpretation [x] Patient assessment, examination and intervention [x] Documentation [x] Medication orders and management Critical Care Time (min): 35 Coding Level of Care Code Acute Scale Adjuster for Lorri Fwd Diagnoses Abscess of right buttock L02.31 Confusion R41.0 Acute hepatic encephalopathy K72.00 Acute on chronic anemia D64.9 Acute hypokalemia E87.6 Thrombocytopenia D69.6 Hypothyroid E03.9 Hypothyroidism type: acquired
--- NOTE | 2022-04-09 11:46 | PC.CHAP ---
Pastoral Care Encounter/Spiritual Assessment Type of Contact [] Declined social media manager visit [] Patient/Family/Request visit [] Outpatient visit [] Follow-up visit [] Physician referral [] Code/Alert [x] Routine visit [] Staff referral [] Actively dying [] Patient sleeping [] Family support [] [] Out of room [] Palliative care [] [] Receiving care in room [] Pre-surgical visit [] Trauma [] Long length of stay [x] ICU visit [] Other: Relational/Emotional Strength [] Patient feels connected with others/family/visitors/staff [] Distress [] Loneliness/isolation [] Abandonment Spirituality of Patient [] Person of Connie [] Attends Zoroastrianism of their Connie [] Believes in Prayer [] Reads Bible or Taoism materials [] There are Spiritual issues to be addressed Guest Laundry Attendant Interventions [x] Prayer [] Active listening [] Non-anxious presence [] Spiritual/emotional support [] Crisis/trauma care [] Spiritual counseling [] Bereavement support [] Provided bereavement packet [] Provided Bible/devotional materials [] Provided toy/stuffed animal, coloring book to patient or family member [] Provided Communion [] Anointing/[place] [] Salvation [x] Completed spiritual assessment [] Other: Impact on Illness or Injury [] Angry [] Fearful [] Anxious [] Often cries [] Exhaustion [] Unable to work [] Unable to attend protestant [] Unable to walk/stand [] Unable to read [] Unable to drive [] Unable to eat/drink [] Unable to sleep [] Unable to be with family [] Patient intubated [] Other: Summary Time spent with patient
[2022-04-09 11:53] LABS: Glucose Point of Care 183 mg/dL (70-110)
[2022-04-09] MEDS: insulin glargine 100 units/1 mL 10 UNIT SUBCUT (12:45)
[2022-04-09] MEDS: D5-NS 0.45% + KCL 20 mEq 20 MEQ/1,000 ML BAG 100 MEQ IV ×2 (12:46→22:08)
--- NOTE | 2022-04-09 14:53 | ANE.PACU2 ---
Inpatient post-anesthesia follow up: Airway intact: Yes Vital signs: Temperature 97.1 F Pulse Rate 78 Respiratory Rate 24 Blood Pressure 138/74 Pulse Oximetry 100 Oxygen Delivery Me thod [ Room Air Current Rate & Del luis] Oxygen Delivery Me thod Room Air Oxygen Flow Rate 5 Fraction of Inspir ed Oxygen Hydration adequate: Yes Nausea and vomiting: No Pain level: 2 Mental status: Baseline
[2022-04-09] MEDS: lactulose oral liq 20 gm/30 mL UDC 30 GM PO (15:28)
[2022-04-09] MEDS: HYDROcodone-acetaminophen 7.5-325 mg Tablet 1 TAB PO (15:44)
[2022-04-09] MEDS: morphine 4 mg/mL SDV 1 mL 2 MG IVP (16:19)
[2022-04-09 18:25] LABS: Glucose Point of Care 274 mg/dL (70-110)
--- NOTE | 2022-04-09 19:10 | PC.NURSE ---
Bedside report completed with Alejandro Hampton RN.
--- NOTE | 2022-04-09 19:10 | PC.NURSE ---
Shift Note: Pt has rested in bed throughout shift. She went to surgery for debridement of right buttock early this am. VSS. Afebrile this shift. Packing remains in wound, gauze replaced due to drainage. Pt very drowsy earlier, unable to take oral meds or fluids Pt doing much better this afternoon she has drank fluids and taken oral medication. She answers to her name, knows her cornelio and she is in hospital. She is following commands regularly now. She has IV fluids of D5/0.45NS with 20 KClL infusing at 150 ml/hr. Urine output of 1500 this shift. Frequent safety and comfort rounds continue. Orders and/or nursing care completed as indicated. Patient monitored for response to intervention and treatment(s). Education provided includes plan of care, IV fluids, Liquid potassium, vancomycin and insulins. . 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 Will continue to monitor.
[2022-04-09 19:36] LABS: Anion Gap 13.5 (5-19); Blood Urea Nitrogen 13 mg/dL (6-20); Calcium 7.9 mg/dL (8.5-10.5); Carbon Dioxide 12 mmol/L (22-29); Chloride 123 mmol/L (98-107); Glomerular Filtration Rate 245.2 mL/min (90-130); Glucose 286 mg/dL (65-115); Osmolality Calculated 313 mOsm/kg (285-295); Sodium 146 mmol/L (136-145)
[2022-04-09 20:02] LABS: Potassium 2.5 mmol/L (3.5-5.1)
[2022-04-09 20:50] LABS: Glucose Point of Care 267 mg/dL (70-110)
[2022-04-09] MEDS: morphine 4 mg/mL SDV 1 mL IVP (22:41)
[2022-04-10] VITALS (43 sets, daily range): BP systolic 111–185; BP diastolic 67–117; PULSE 64–85; RESP 15–31; TEMP 36.6–37.1; O2SAT 91–100; BMI 32.5
[2022-04-10 01:50] LABS: Ammonia 100 umol/L (11-51)
[2022-04-10 01:51] LABS: Alanine Aminotransferase 11 U/L (0-33); Albumin Level 2.3 g/dL (3.5-5.2); Alkaline Phosphatase 215 U/L (35-105); Anion Gap 14.9 (5-19); Aspartate Amino Transferase 33 U/L (0-32); Blood Urea Nitrogen 12 mg/dL (6-20); Calcium 8.2 mg/dL (8.5-10.5); Carbon Dioxide 12 mmol/L (22-29); Chloride 128 mmol/L (98-107); Globulin 4.5 g/dL (1.3-4.6); Glomerular Filtration Rate 175.9 mL/min (90-130); Glucose 147 mg/dL (65-115); Osmolality Calculated 316 mOsm/kg (285-295); Sodium 152 mmol/L (136-145); Total Bilirubin 2.9 mg/dL (0.15-1.2); Total Protein 6.8 g/dL (6.6-8.7)
[2022-04-10 01:53] LABS: Vancomycin Trough 13.8 ug/mL (10-15)
[2022-04-10 01:54] LABS: Potassium 2.9 mmol/L (3.5-5.1)
[2022-04-10] MEDS: vancomycin 1,500 MG/300 ML PIGGYBACK 200 MG IV ×2 (02:34→14:00)
[2022-04-10] MEDS: morphine 4 mg/mL SDV 1 mL IVP (04:37)
[2022-04-10 04:59] LABS: Basophils % 0.3 %; Eosinophils # 0.1 10^3/uL (0.0-0.8); Eosinophils % 1.3 %; Hematocrit 28.7 % (37.0-47.0); Hemoglobin 8.2 g/dL (11.5-15.3); Lymphocytes # 1.3 10^3/uL (0.8-4.8); Lymphocytes % 13.4 %; Mean Corpuscular HGB Conc 28.6 g/dL (30.0-36.0); Mean Corpuscular Hemoglobin 22.3 pg (28.0-34.0); Monocytes # 1.1 10^3/uL (0.2-0.9); Neutrophils # 7.23 10^3/uL (1.8-7.7); Neutrophils % 72.6 %; Nucleated Red Blood Cells % 0.3 %; Platelet Count 112 10^3/cmm (130-400); Red Blood Count 3.68 10^6/uL (4.1-5.3); Red Cell Distribution Width 24.3 % (12.1-15.1)
[2022-04-10 05:34] LABS: Mean Platelet Volume 9.5 fL (7.4-10.4)
[2022-04-10 05:38] LABS: Add RBC Morph Yes
[2022-04-10 05:39] LABS: RBC Morph Comp No
[2022-04-10 06:27] LABS: Hypochromasia 1+; Ovalocytes Trace; Schistocytes Trace; Target Cells 1+; Tear Drop Cells Trace
[2022-04-10 06:28] LABS: Burr Cells Trace
--- NOTE | 2022-04-10 07:00 | PC.NURSE ---
Bedside report completed with Alejandro Dodd RN
[2022-04-10 08:48] LABS: Glucose Point of Care 242 mg/dL (70-110)
[2022-04-10] MEDS: D5-NS 0.45% + KCL 20 mEq 20 MEQ/1,000 ML BAG 100 MEQ IV (09:01)
[2022-04-10] MEDS: pantoprazole 40 mg SDV IVP (09:03)
[2022-04-10] MEDS: folic acid 1 mg Tablet PO (09:03)
[2022-04-10] MEDS: HYDROcodone-acetaminophen 7.5-325 mg Tablet 1 TAB PO ×3 (09:03→23:55)
[2022-04-10] MEDS: levothyroxine 50 mcg Tablet PO (09:04)
[2022-04-10] MEDS: multivitamin therapeutic Tablet 1 TAB PO (09:04)
[2022-04-10] MEDS: propranolol 40 mg Tablet PO ×2 (09:05→20:10)
[2022-04-10] MEDS: lactulose oral liq 20 gm/30 mL UDC 30 GM PO ×2 (09:05→14:19)
[2022-04-10] MEDS: fluoxetine 20 mg Capsule 60 MG PO (09:05)
[2022-04-10] MEDS: insulin lispro 100 unit/1 mL SUBCUT ×4 (09:05→20:10)
[2022-04-10] MEDS: piperacillin-tazobactam 3.375 GM in sodium chloride 0.9% (plus) 50 ML IV ×3 (09:06→23:56)
[2022-04-10] MEDS: amlodipine 10 mg Tablet PO (09:10)
[2022-04-10] MEDS: insulin glargine 100 units/1 mL 10 UNIT SUBCUT (09:10)
--- NOTE | 2022-04-10 09:37 | PM.PN ---
Subjective Subjective: Packing came out with dressing changes overnight. Patient denies any pain. Vitals/I&O/Wt Last Vital Signs Temp 98.7 F 04/10/22 04:00 Pulse 73 04/10/22 06:00 Resp 20 H 04/10/22 06:00 BP 164/77 04/10/22 06:00 Pulse Ox 98 04/10/22 04:37 O2 Del Method 04/09/22 19:00 O2 Flow Rate 5 04/09/22 08:30 04/09/22 04/10/22 04/10/22 22:59 06:59 14:59 Intake Total 2606.667 / 3295.667 50 / 3345.667 825 / 825 Output Total 2400 / 2400 800 / 3200 Balance 206.667 / 895.667 -750 / 145.667 825 / 825 Weight last 48 hrs Weight 220 lb 4.8 oz Weight 220 lb 4.8 oz Physical Exam Narrative: General: No acute distress, awake alert and oriented x3 Abdomen: Soft nontender nondistended no guarding rebound or masses Skin: 2 open and draining incisions on the right gluteus Urinary Catheter Management: Boykin: Cath Placed During This Visit: yes Reason for Continuing Indwelling Catheter: Accurate Measurement of Urinary Output in Critically Ill Patients Urinary Catheter Date of Insertion: 04/08/22 Urinary Catheter Time of Insertion: 10:30 Data : 04/10/22 03:40 04/10/22 01:05 Micro: Microbiology 04/09/22 07:44 Gram Stain - Final Buttock A&P Assessment and plan (1) Abscess, gluteal, right: Status: Acute Plan Abscess cavity was small and it spontaneously draining on day of surgery. No need to pack any further. Antibiotics per hospitalist. No further surgical intervention. Attestations Medical Necessity Statement*: Further hospitalization per hospitalist Coding Level of Care Code Acute Paper Goods Machine Set Up Operator for Lorri Chandler Diagnoses Abscess, gluteal, right L02.31
[2022-04-10 11:58] LABS: Glucose Point of Care 378 mg/dL (70-110)
[2022-04-10] MEDS: dextrose 5% + KCl 20 mEq 20 MEQ/1,000 ML BAG 75 MEQ IV (12:04)
--- NOTE | 2022-04-10 15:10 | PM.PN ---
Subjective Subjective: Patient wakes up to calling name. Replies appropriately to simple questions, however goes back to sleep right afterwards. Hypokalemia noted this morning on labs. Cultures from the OR still pending. Medications: Reviewed: Yes Vitals/I&O/Wt Last Vital Signs Temp 98.2 F 04/10/22 08:30 Pulse 67 04/10/22 14:30 Resp 22 H 04/10/22 14:30 BP 163/92 04/10/22 14:30 Pulse Ox 99 04/10/22 14:30 O2 Del Method 04/10/22 14:30 O2 Flow Rate 5 04/09/22 08:30 04/10/22 04/10/22 04/10/22 06:59 14:59 22:59 Intake Total 350 / 3645.667 2565 / 2565 Output Total 800 / 3200 Balance -450 / 080.668 0842 / 2565 Weight last 48 hrs Weight 99.926 kg Weight 99.926 kg Physical Exam Narrative: General: No acute distress, lying in bed, wakes up to calling name, however somnolent at other times. HEENT: PERRLA, pupils bilaterally equal and reactive, pallors not present Chest: Normal vesicular breath sounds, no added sounds, equal good air entry bilaterally CVS: S1-S2 regular, no murmurs, no tachycardia, no gallops, no rubs Abdomen: Soft, nontender, no organomegaly, bowel sounds present Neuro: No focal motor deficits grossly Urinary Catheter Management: Boykin: Cath Placed During This Visit: yes Reason for Continuing Indwelling Catheter: Accurate Measurement of Urinary Output in Critically Ill Patients Urinary Catheter Date of Insertion: 04/08/22 Urinary Catheter Time of Insertion: 10:30 Data : 04/10/22 03:40 04/10/22 01:05 Micro: Microbiology 04/09/22 07:44 Gram Stain - Final Buttock Anaerobic Culture - Preliminary A&P Assessment and plan (1) Abscess of right buttock: Patient with right buttock abscess. She is directly postoperative incision and drainage Continue IV vancomycin and Zosyn. Blood culture negative so far Appreciate surgical consultation Status: Acute (2) Confusion: May be secondary to underlying infection. Consistent with acute metabolic encephalopathy No evidence of septic shock currently. Contributing factors could be history of substance abuse, alcohol use, liver disease with high ammonia CT head without acute abnormalities She appears to be improving For hepatic encephalopathy, lactulose and rifaximin initiated. Status: Acute (3) Acute hepatic encephalopathy: See above Continue lactulose, rifaximin Status: Acute (4) Acute on chronic anemia: Avoid anticoagulation currently. Protonix IV will be continued No evidence of active bleeding. Hemoglobin has drifted down as expected with hydration. Status: Acute (5) Acute hypokalemia: Supplement potassium again today. Place potassium and IV fluids. Magnesium level currently normal. Also developing hypernatremia, change fluids to D5 water with 20 KCl. Status: Acute (6) Thrombocytopenia: Secondary to alcoholic liver disease. Monitor. Status: Acute (7) Hypothyroid: Diminished TSH. Restart thyroid hormone, half dose Status: Acute Qualifiers: Hypothyroidism type: acquired Qualified Code(s): E03.9 - Hypothyroidism, unspecified Plan Diabetes mellitus. Lantus 10 units subcu daily. Sliding scale insulin. History of mental health disorder, drug use, alcohol use Multiple other medical problems as outlined in past medical history Family has some concerns secondary to her chronic alcoholism and inability to care for herself she will need nursing facility placement. Discharge planning is arranging this based on family's wishes. Attestations Medical Necessity Statement*: Needs ongoing admission for IV antibiotics, disposition decisions, monitor for improvement in mental status. Coding Level of Care Code Acute Casting Machine Service Operator for bret Chandler Diagnoses Abscess of right buttock L02.31 Confusion R41.0 Acute hepatic encephalopathy K72.00 Acute on chronic anemia D64.9 Acute hypokalemia E87.6 Thrombocytopenia D69.6 Hypothyroid E03.9 Hypothyroidism type: acquired
[2022-04-10 17:31] LABS: Glucose Point of Care 233 mg/dL (70-110)
[2022-04-10] MEDS: lidocaine 1% 5 ML in potassium chloride premix 100 ML 25 ML IV (17:36)
--- NOTE | 2022-04-10 18:38 | PC.NURSE ---
Shift Note: pt much more alert today. She knows her name and is in hospital in [place]. She is more interactive with staff. Watching TV. She has been able to swallow pills Speech therapy came and evaluated her. Soft ordered. Pt has been very thirsty, requesting water, juice lemon-alatna soda frequently. She has been incontinent of liquid Bm several times and has been able to get to [facility] 2-3 times for liquid BM. Bath provided today. Linens changed several times. Her wounds on her right buttock have been irrigated and/or rinsed with sterile NS, and left open to air, on incontinence episodes. 1800 ml urine output noted this shift. She has required pain medication twice this shift due to her right buttock. Her Mother and daughter have called to check up on her today, updates provided. Frequent safety and comfort rounds continue. Orders and/or nursing care completed as indicated. Patient monitored for response to intervention and treatment(s). Education provided includes Lactulose, Hydrocodone, antibiotics, and IV potassium, plan of care. 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 Will continue to monitor.
--- NOTE | 2022-04-10 19:09 | PC.NURSE ---
Bedside report complete with Alejandro Hampton, RN
[2022-04-10 20:05] LABS: Glucose Point of Care 206 mg/dL (70-110)
[2022-04-11] VITALS (37 sets, daily range): BP systolic 121–170; BP diastolic 63–103; PULSE 71–80; RESP 15–29; TEMP 36.6; O2SAT 95–100; BMI 32.5
[2022-04-11] MEDS: morphine 4 mg/mL SDV 1 mL IVP (01:33)
[2022-04-11] MEDS: dextrose 5% + KCl 20 mEq 20 MEQ/1,000 ML BAG 75 MEQ IV (01:44)
[2022-04-11] MEDS: vancomycin 1,500 MG/300 ML PIGGYBACK 200 MG IV ×2 (02:14→13:15)
[2022-04-11] MEDS: levothyroxine 50 mcg Tablet PO (05:03)
[2022-04-11 05:36] LABS: Basophils # 0.1 10^3/uL (0.0-0.1); Basophils % 0.6 %; Eosinophils # 0.2 10^3/uL (0.0-0.8); Eosinophils % 2.1 %; Hematocrit 34.1 % (37.0-47.0); Lymphocytes # 1.7 10^3/uL (0.8-4.8); Lymphocytes % 17.2 %; Mean Corpuscular HGB Conc 26.4 g/dL (30.0-36.0); Mean Corpuscular Hemoglobin 22.4 pg (28.0-34.0); Mean Platelet Volume 10.6 fL (7.4-10.4); Monocytes # 0.8 10^3/uL (0.2-0.9); Neutrophils # 7.14 10^3/uL (1.8-7.7); Neutrophils % 70.5 %; Nucleated Red Blood Cells # 0.1 /100WBC; Nucleated Red Blood Cells % 0.6 %; Platelet Count 114 10^3/cmm (130-400); Red Blood Count 4.01 10^6/uL (4.1-5.3); Red Cell Distribution Width 24.5 % (12.1-15.1); White Blood Count 10.1 10^3/uL (4.0-10.0)
[2022-04-11 05:40] LABS: Alanine Aminotransferase 14 U/L (0-33); Albumin Level 2.1 g/dL (3.5-5.2); Alkaline Phosphatase 221 U/L (35-105); Aspartate Amino Transferase 62 U/L (0-32); Blood Urea Nitrogen 7 mg/dL (6-20); Calcium 7.4 mg/dL (8.5-10.5); Carbon Dioxide 12 mmol/L (22-29); Chloride 111 mmol/L (98-107); Globulin 4.6 g/dL (1.3-4.6); Glomerular Filtration Rate 175.9 mL/min (90-130); Glucose 227 mg/dL (65-115); Osmolality Calculated 285 mOsm/kg (285-295); Sodium 135 mmol/L (136-145); Total Bilirubin 2.1 mg/dL (0.15-1.2); Total Protein 6.7 g/dL (6.6-8.7)
[2022-04-11 05:57] LABS: Anion Gap 14.8 (5-19)
[2022-04-11 05:58] LABS: Potassium 2.8 mmol/L (3.5-5.1)
[2022-04-11 06:04] LABS: Slide Review Slide Review Perform
[2022-04-11 07:37] LABS: Glucose Point of Care 258 mg/dL (70-110)
[2022-04-11] MEDS: HYDROcodone-acetaminophen 7.5-325 mg Tablet 1 TAB PO ×2 (07:51→16:48)
[2022-04-11] MEDS: insulin lispro 100 unit/1 mL SUBCUT ×4 (07:52→20:52)
[2022-04-11] MEDS: piperacillin-tazobactam 3.375 GM in sodium chloride 0.9% (plus) 50 ML IV ×3 (07:55→23:41)
[2022-04-11] MEDS: pantoprazole 40 mg SDV IVP (10:19)
[2022-04-11] MEDS: multivitamin therapeutic Tablet 1 TAB PO (10:20)
[2022-04-11] MEDS: folic acid 1 mg Tablet PO (10:20)
[2022-04-11] MEDS: fluoxetine 20 mg Capsule 60 MG PO (10:21)
[2022-04-11] MEDS: amlodipine 10 mg Tablet PO (10:21)
[2022-04-11] MEDS: lactulose oral liq 20 gm/30 mL UDC 30 GM PO ×2 (10:23→20:48)
[2022-04-11] MEDS: insulin glargine 100 units/1 mL 10 UNIT SUBCUT (10:23)
[2022-04-11] MEDS: propranolol 40 mg Tablet PO ×2 (10:51→20:49)
--- NOTE | 2022-04-11 11:52 | PM.PN ---
Subjective Subjective: Patient was much more alert and awake today. She is oriented x3, able to participate in conversation. Denies any new complaints except some soreness over her buttocks. Afebrile, hemodynamically stable. Medications: Reviewed: Yes Vitals/I&O/Wt Last Vital Signs Temp 98 F 04/11/22 04:00 Pulse 73 04/11/22 10:00 Resp 15 04/11/22 10:00 BP 138/73 04/11/22 10:00 Pulse Ox 96 04/11/22 10:00 O2 Del Method 04/11/22 10:00 O2 Flow Rate 5 04/09/22 08:30 04/10/22 04/11/22 04/11/22 22:59 06:59 14:59 Intake Total 2255 / 4820 2580 / 7400 440 / 440 Output Total 375 / 375 2000 / 2375 900 / 900 Balance 1880 / 4445 580 / 5025 -460 / -460 Weight last 48 hrs Weight 99.926 kg Weight 99.926 kg Physical Exam Narrative: General: No acute distress, AO x3 HEENT: PERRLA, pupils bilaterally equal and reactive, pallors not present Chest: Normal vesicular breath sounds, no added sounds, equal good air entry bilaterally CVS: S1-S2 regular, no murmurs, no tachycardia, no gallops, no rubs Abdomen: Soft, nontender, no organomegaly, bowel sounds present Neuro: No focal deficits, no facial deformity, AO x3, power 5/5 in all limbs Extremities: Small draining surgical josie seen over I&D site over left buttock. Urinary Catheter Management: Boykin: Cath Placed During This Visit: yes Reason for Continuing Indwelling Catheter: Accurate Measurement of Urinary Output in Critically Ill Patients Urinary Catheter Date of Insertion: 04/08/22 Urinary Catheter Time of Insertion: 10:30 Data : 04/11/22 03:35 04/11/22 03:35 Micro: Microbiology 04/09/22 07:44 Gram Stain - Final Buttock Anaerobic Culture - Preliminary Abscess Culture - Preliminary A&P Assessment and plan (1) Abscess of right buttock: Patient with right buttock abscess. She is s/p incision and drainage on 04/09 Abscess culture thus far with gram stain showing few GPC's in pairs and few gram-negative rods, thus far appearing to be superficial vitaly on day 1. Empirically on IV vancomycin and Zosyn. Blood culture negative so far Appreciate surgical consultation Status: Acute (2) Confusion: May be secondary to underlying infection. Consistent with acute metabolic encephalopathy. This is now completely resolved No evidence of septic shock currently. Contributing factors could be history of substance abuse, alcohol use, liver disease with high ammonia CT head without acute abnormalities For hepatic encephalopathy, she is currently on lactulose and rifaximin, currently having 2-3 soft bowel movements a day. Status: Acute (3) Acute hepatic encephalopathy: See above Continue lactulose, rifaximin Status: Acute (4) Acute on chronic anemia: No current evidence of bleeding. Start DVT prophylaxis with heparin. Protonix IV to be changed to p.o. Protonix today No evidence of active bleeding. Hemoglobin has drifted down as expected with hydration. Status: Acute (5) Acute hypokalemia: Supplement potassium again today. Replace potassium Status: Acute (6) Thrombocytopenia: Secondary to alcoholic liver disease. Monitor. Status: Acute (7) Hypothyroid: Diminished TSH. Restart thyroid hormone, half dose Status: Acute Qualifiers: Hypothyroidism type: acquired Qualified Code(s): E03.9 - Hypothyroidism, unspecified (8) Hypernatremia: Hyponatremia now resolved, discontinue D5 infusion. Status: Acute Plan Diabetes mellitus. Lantus 10 units subcu daily. Sliding scale insulin. Fingersticks are currently well controlled between 140 70-86. History of mental health disorder, drug use, alcohol use Multiple other medical problems as outlined in past medical history Disposition : family has some concerns secondary to her chronic alcoholism and inability to care for herself she will need nursing facility placement. Discharge planning is arranging this based on family's wishes. DVT prophylaxis: Subcutaneous heparin GI prophylaxis: Protonix 40 mg p.o. daily Attestations Medical Necessity Statement*: Transfer out of ICU to [facility]. Coding Level of Care Code Acute Deputy Attorney General for [facility] Diagnoses Abscess of right buttock L02.31 Confusion R41.0 Acute hepatic encephalopathy K72.00 Acute on chronic anemia D64.9 Acute hypokalemia E87.6 Thrombocytopenia D69.6 Hypothyroid E03.9 Hypothyroidism type: acquired Hypernatremia E87.0
[2022-04-11 11:58] LABS: Glucose Point of Care 350 mg/dL (70-110)
[2022-04-11 17:18] LABS: Glucose Point of Care 284 mg/dL (70-110)
[2022-04-11] MEDS: morphine 4 mg/mL SDV 1 mL 2 MG IVP (18:00)
--- NOTE | 2022-04-11 19:14 | PC.NURSE ---
Report called to [facility]. Patient and belongings taken to room 268.
[2022-04-11 20:47] LABS: Glucose Point of Care 245 mg/dL (70-110)
[2022-04-11] MEDS: LORazepam 2 mg/mL INJ 1 mL IVP (23:23)
[2022-04-12] MEDS: vancomycin 1,500 MG/300 ML PIGGYBACK 200 MG IV (01:46)
[2022-04-12] MEDS: lactulose oral liq 20 gm/30 mL UDC 30 GM PO ×3 (03:13→17:35)
[2022-04-12 04:01] LABS: Basophils # 0.1 10^3/uL (0.0-0.1); Basophils % 0.4 %; Eosinophils # 0.1 10^3/uL (0.0-0.8); Eosinophils % 1.1 %; Hematocrit 32.2 % (37.0-47.0); Hemoglobin 8.9 g/dL (11.5-15.3); Lymphocytes # 2.1 10^3/uL (0.8-4.8); Lymphocytes % 18.5 %; Mean Corpuscular HGB Conc 27.6 g/dL (30.0-36.0); Mean Corpuscular Hemoglobin 22.1 pg (28.0-34.0); Mean Corpuscular Volume 79.9 fl (81-99); Mean Platelet Volume 10.8 fL (7.4-10.4); Monocytes # 0.8 10^3/uL (0.2-0.9); Monocytes % 7.3 %; Neutrophils # 7.94 10^3/uL (1.8-7.7); Neutrophils % 71.3 %; Nucleated Red Blood Cells % 0.3 %; Platelet Count 151 10^3/cmm (130-400); Red Blood Count 4.03 10^6/uL (4.1-5.3); Red Cell Distribution Width 24.7 % (12.1-15.1); White Blood Count 11.1 10^3/uL (4.0-10.0)
[2022-04-12 04:21] LABS: Slide Review Slide Review Perform
[2022-04-12 04:25] LABS: Alanine Aminotransferase 17 U/L (0-33); Albumin Level 2.3 g/dL (3.5-5.2); Alkaline Phosphatase 245 U/L (35-105); Anion Gap 16.3 (5-19); Aspartate Amino Transferase 77 U/L (0-32); Blood Urea Nitrogen 5 mg/dL (6-20); Calcium 8.1 mg/dL (8.5-10.5); Carbon Dioxide 14 mmol/L (22-29); Chloride 110 mmol/L (98-107); Globulin 4.7 g/dL (1.3-4.6); Glomerular Filtration Rate 175.9 mL/min (90-130); Glucose 167 mg/dL (65-115); Osmolality Calculated 287 mOsm/kg (285-295); Sodium 138 mmol/L (136-145)
[2022-04-12 04:37] LABS: Potassium 2.3 mmol/L (3.5-5.1)
[2022-04-12 04:42] VITALS: BP 164/81; PULSE 74; RESP 20; TEMP 37.3; O2SAT 100
[2022-04-12] MEDS: levothyroxine 50 mcg Tablet PO (05:29)
[2022-04-12 06:00] VITALS: PULSE 73
[2022-04-12 06:39] LABS: Glucose Point of Care 176 mg/dL (70-110)
[2022-04-12 07:47] VITALS: BP 167/95; PULSE 82; RESP 16; TEMP 37; O2SAT 96
[2022-04-12] MEDS: fluoxetine 20 mg Capsule 60 MG PO (08:03)
[2022-04-12] MEDS: propranolol 40 mg Tablet PO (08:03)
[2022-04-12] MEDS: pantoprazole DR 40 mg Tablet PO (08:03)
[2022-04-12] MEDS: insulin lispro 100 unit/1 mL SUBCUT ×2 (08:03→13:24)
[2022-04-12] MEDS: potassium chloride ER 20 mEq Tablet 40 MEQ PO (08:03)
[2022-04-12] MEDS: multivitamin therapeutic Tablet 1 TAB PO (08:03)
[2022-04-12] MEDS: folic acid 1 mg Tablet PO (08:03)
[2022-04-12] MEDS: insulin glargine 100 units/1 mL 10 UNIT SUBCUT (08:03)
[2022-04-12] MEDS: thiamine 100 mg Tablet PO (08:04)
[2022-04-12] MEDS: amlodipine 10 mg Tablet PO (08:04)
[2022-04-12] MEDS: potassium chloride ER 20 mEq Tablet PO (10:07)
[2022-04-12 12:00] VITALS: BP 143/81; PULSE 72; RESP 18; TEMP 36.6; O2SAT 97
[2022-04-12 12:18] LABS: Glucose Point of Care 315 mg/dL (70-110)
[2022-04-12 14:26] LABS: Vancomycin Trough 14.4 ug/mL (10-15)
[2022-04-12 16:00] VITALS: BP 157/79; PULSE 74; RESP 18; TEMP 36.7; O2SAT 99
[2022-04-12 17:40] LABS: Glucose Point of Care 172 mg/dL (70-110)
--- NOTE | 2022-04-12 17:46 | P.PN_ITS ---
Subjective Subjective: States she is not feeling any much better. Right buttock is sore after I&D. Knows she is in [place], but thought she is in jail. Tells me the year correctly. Vitals/I&O/Wt Last Vital Signs Temp 98.0 F 04/12/22 16:00 Pulse 74 04/12/22 16:00 Resp 18 04/12/22 16:00 BP 157/79 04/12/22 16:00 Pulse Ox 99 04/12/22 16:00 O2 Del Method 04/12/22 16:00 O2 Flow Rate 5 04/09/22 08:30 04/12/22 04/12/22 04/12/22 06:59 14:59 22:59 Intake Total 2350 / 4979.0909 240 / 240 Output Total 2825 / 4525 2049 Balance -475 / 454.0909 240 / 240 -2049 / -1810 Weight last 48 hrs Weight 99.926 kg Physical Exam Const: COMMON NORMALS: alert; negative for patient oriented x3 GENERAL APPEARANCE: cooperative ORIENTA TION/CONSCIOUSNESS: Yes awake HENMT: COMMON NORMALS: oropharynx normal Neck/C-Spine: COMMON NORMALS: no JVD Resp: COMMON NORMALS: normal respiratory effort and clear to auscultation bilaterally AUSCULTATION: clear to auscultation bilaterally Cardio: COMMON NORMALS: no JVD, regular rhythm, S1 normal heart sound present, S2 normal heart sound present and No murmurs present (Cardio) RHYTHM: regular rhythm HEART SOUNDS: S1 normal heart sound present and S2 normal heart sound present GI: COMMON NORMALS: Normal to inspection, nondistended, normoactive bowel sounds present, Soft to palpation and non-tender PALPATION: Yes Soft to palpation Extremity: COMMON NORMALS: no joint enlargement and no pedal edema Neuro: COMMON NORMALS: moves all extremities; negative for patient oriented x3 SENSORIUM/ORIENTATION: Yes alert Skin: COMMON NORMALS: no rashes or lesions noted GENERAL SKIN EXAM: no neyda hes or lesions noted OTHER: I&D incision, no surrounding cellulitis. Small amount of serous drainage. Urinary Catheter Management: Boykin: Cath Placed During This Visit: yes Reason for Continuing Indwelling Catheter: Accurate Measurement of Urinary Output in Critically Ill Patients Urinary Catheter Date of Insertion: 04/08/22 Urinary Catheter Time of Insertion: 10:30 Data : 04/12/22 03:47 04/12/22 03:47 Micro: Microbiology 04/09/22 07:44 Gram Stain - Final Buttock Anaerobic Culture - Preliminary Abscess Culture - Final 04/07/22 09:18 Blood Culture - Final Blood NO GROWTH AFTER 5 DAYS 04/07/22 09:18 Blood Culture - Final Blood NO GROWTH AFTER 5 DAYS A&P Assessment and plan (1) Abscess of right buttock: Lost IV access, very difficult stick. We will transition to oral antibiotic. Wound cultures so far few gram-positive cocci in pairs, few gram-negative rods. No surrounding cellulitis. Mild serous drainage from the I&D site. Patient with right buttock abscess. She is s/p incision and drainage on 04/09 Blood culture negative so far Appreciate surgical consultation Status: Acute (2) Confusion: Some persistence of encephalopathy. She is oriented to year, knows she is in [place], but thought she was at the jail. Continue lactulose also for hepatic encephalopathy, appears to have 3 bowel movements today. Continue antibiotics as above. Contributing factors could be history of substance abuse, alcohol use, liver disease with high ammonia CT head without acute abnormalities Status: Acute (3) Acute hepatic encephalopathy: See above Continue lactulose, rifaximin. Started 2-3 soft bowel movements per day. Status: Acute (4) Acute on chronic anemia: No current evidence of bleeding. So far maintaining hemoglobin. Start DVT prophylaxis with heparin. p.o. Protonix today No evidence of active bleeding. Status: Acute (5) Acute hypokalemia: Replaced. Additional potassium. Scheduled potassium. Status: Acute (6) Thrombocytopenia: Secondary to alcoholic liver disease. Monitor. Status: Acute (7) Hypothyroid: Diminished TSH. Restart thyroid hormone, half dose Status: Acute Qualifiers: Hypothyroidism type: acquired Qualified Code(s): E03.9 - H ypothyroidism, unspecified (8) Hypernatremia: Hyponatremia now resolved Status: Acute Plan Diabetes mellitus. Lantus 10 units subcu daily. Sliding scale insulin. Fingersticks are currently well controlled between 140 70-86. History of mental health disorder, drug use, alcohol use Multiple other medical problems as outlined in past medical history Disposition : family has some concerns secondary to her chronic alcoholism and inability to care for herself she will need nursing facility placement. Discharge planning is arranging this based on family's wishes. DVT prophylaxis: Subcutaneous heparin GI prophylaxis: Protonix 40 mg p.o. daily Attestations Medical Necessity Statement*: Continue admission for assessment and management of acute encephalopathy following acute infection, hepatic encephalopathy, transition of antibiotics to oral therapy replacement of severe hypokalemia. Disposition planning. Coding Level of Care Code Acute Column Precaster for g Fwd Diagnoses Abscess of right buttock L02.31 Confusion R41.0 Acute hepatic encephalopathy K72.00 Acute on chronic anemia D64.9 Acute hypokalemia E87.6 Thrombocytopenia D69.6 Hypothyroid E03.9 Hypothyroidism type: acquired Hypernatremia E87.0
[2022-04-12] MEDS: doxycycline 100 mg Tablet PO (18:48)
[2022-04-12] MEDS: ciprofloxacin 500 mg Tablet PO (18:48)
[2022-04-12 20:00] VITALS: BP 162/90; PULSE 70; RESP 17; TEMP 36.8; O2SAT 98
[2022-04-12 21:32] LABS: Glucose Point of Care 231 mg/dL (70-110)
[2022-04-12] MEDS: LORazepam 2 mg/mL INJ 1 mL 1 MG IM (22:25)
--- NOTE | 2022-04-13 00:25 | PC.NURSE ---
around 1999 pt began requesting to go home, nurse spoke with pt and educated about current status, lab values detrimental to pt health, pt continue to state i am over 21 and I can make my own decisions and I want to go home , nurse continue to educate pt about current physical ability, need for medical treatment, educations not effective, pt continue to state I just want to make my own decisions and I want to go home , nurse pointed out significant lab values that indicates pt needing medical treatment and pt stated I am feeling fine, all that is wrong, nothing is wrong with me , call placed to Hospitalist Dr. Presley, nurse informed that pt can go AMA and make sure pt signs AMA form, nurse called pt mother without success, called pt daughter and explained current situation, daughter stated she will call grandmother, daughter spoke with pt then later pt mother called and spoke with pt. according to pt her mother told her to wait until morning and she will be here to pick pt up, pt agreeable and requested something for anxiety, call placed to dr Presley and 1 mg IM Ativan ordered and given to pt. by 2299 pt stating wanting to leave again, pt reminded that she spoke with her mother and they agreed she is to stay until morning, pt continue to insist , nurse informed pt that nurse will call mother again and see if she could come and get pt. nurse again reminded pt of current physical limitations and that nurse is concerned she will end up in a ditch if no one comes to get her, pt stated I don't care and laughs. by 0000 pt resting in bed, eyes closed, resp even and unlabored, no s/s of distress. pt also refused all meds earlier, multiple attempts failed.
[2022-04-13 04:00] VITALS: BP 168/89; PULSE 71; RESP 17; TEMP 36.6; O2SAT 98
[2022-04-13 05:05] LABS: Basophils % 0.3 %; Eosinophils # 0.1 10^3/uL (0.0-0.8); Eosinophils % 0.7 %; Hematocrit 32.7 % (37.0-47.0); Hemoglobin 9.4 g/dL (11.5-15.3); Lymphocytes # 1.9 10^3/uL (0.8-4.8); Lymphocytes % 16.2 %; Mean Corpuscular HGB Conc 28.7 g/dL (30.0-36.0); Mean Corpuscular Hemoglobin 22.7 pg (28.0-34.0); Mean Corpuscular Volume 78.8 fl (81-99); Mean Platelet Volume 10.1 fL (7.4-10.4); Monocytes # 1.2 10^3/uL (0.2-0.9); Monocytes % 9.9 %; Neutrophils # 8.53 10^3/uL (1.8-7.7); Nucleated Red Blood Cells % 0.2 %; Platelet Count 210 10^3/cmm (130-400); Red Blood Count 4.15 10^6/uL (4.1-5.3); Red Cell Distribution Width 25.9 % (12.1-15.1); White Blood Count 11.9 10^3/uL (4.0-10.0)
[2022-04-13 05:27] LABS: Alanine Aminotransferase 21 U/L (0-33); Albumin Level 2.6 g/dL (3.5-5.2); Alkaline Phosphatase 260 U/L (35-105); Blood Urea Nitrogen 6 mg/dL (6-20); Calcium 8.2 mg/dL (8.5-10.5); Carbon Dioxide 14 mmol/L (22-29); Chloride 109 mmol/L (98-107); Globulin 5.2 g/dL (1.3-4.6); Glomerular Filtration Rate 175.9 mL/min (90-130); Glucose 245 mg/dL (65-115); Magnesium 1.8 mg/dL (1.7-2.3); Osmolality Calculated 296 mOsm/kg (285-295); Sodium 140 mmol/L (136-145); Total Bilirubin 2.4 mg/dL (0.15-1.2); Total Protein 7.8 g/dL (6.6-8.7)
[2022-04-13 05:33] LABS: Anion Gap 19.4 (5-19); Aspartate Amino Transferase 113 U/L (0-32); Potassium 2.4 mmol/L (3.5-5.1)
[2022-04-13] MEDS: potassium chloride ER 20 mEq Tablet 80 MEQ PO (05:47)
[2022-04-13] MEDS: levothyroxine 50 mcg Tablet PO (05:48)
[2022-04-13 06:26] LABS: Glucose Point of Care 313 mg/dL (70-110)
[2022-04-13 07:46] VITALS: BP 161/81; PULSE 73; RESP 18; TEMP 36.8; O2SAT 99
[2022-04-13] MEDS: insulin glargine 100 units/1 mL 10 UNIT SUBCUT (08:29)
[2022-04-13] MEDS: insulin lispro 100 unit/1 mL SUBCUT ×4 (08:29→21:59)
[2022-04-13] MEDS: doxycycline 100 mg Tablet PO ×2 (08:30→17:41)
[2022-04-13] MEDS: multivitamin therapeutic Tablet 1 TAB PO (08:30)
[2022-04-13] MEDS: ciprofloxacin 500 mg Tablet PO ×2 (08:30→20:45)
[2022-04-13] MEDS: potassium chloride ER 20 mEq Tablet 40 MEQ PO (08:30)
[2022-04-13] MEDS: propranolol 40 mg Tablet PO ×2 (08:30→20:45)
[2022-04-13] MEDS: thiamine 100 mg Tablet PO (08:30)
[2022-04-13] MEDS: pantoprazole DR 40 mg Tablet PO (08:30)
[2022-04-13] MEDS: folic acid 1 mg Tablet PO (08:30)
[2022-04-13] MEDS: amlodipine 10 mg Tablet PO (08:30)
[2022-04-13] MEDS: lactulose oral liq 20 gm/30 mL UDC 30 GM PO ×2 (08:30→20:45)
[2022-04-13] MEDS: fluoxetine 20 mg Capsule 60 MG PO (08:30)
--- NOTE | 2022-04-13 10:22 | US_ITS ---
WS: [id number] ULTRASOUND SOFT TISSUES RIGHT gluteal region. HISTORY: Open wound RIGHT gluteal region. COMPARISON: None available. TECHNIQUE: 2-D and color Doppler imaging is submitted. Ultrasound directed over the RIGHT gluteal region in the area open wound. There is a small hypoechoic tract and adjacent edema. Superficial defect in the soft tissue. There is no well formed abscess. Th e tract extends 1.2 cm deep along an oblique angle. US/US soft tissue/extremity [id number] IMPRESSION: 1. No soft tissue abscess in the RIGHT gluteal region. 2. Soft tissue edema and a soft tissues tract with surrounding edema.
--- NOTE | 2022-04-13 10:52 | P.DS_ITS ---
Discharge Providers Date of Admission: 04/07/22 14:30 Date of Discharge: April 13, 2022 Attending Provider at Admission: Gaudencio Reyes MD Attending Provider at Discharge: Miguel Ángel Stephens Primary Care Provider: FARHAT Rivera Diagnoses at Discharge Discharge Diagnosis (1) Abscess of right buttock: Status: Acute (2) Confusion: Status: Acute (3) Acute hepatic encephalopathy: Status: Acute (4) Acute on chronic anemia: Status: Acute (5) Acute hypokalemia: Status: Acute (6) Thrombocytopenia: Status: Acute (7) Hypothyroid: Status: Acute Qualifiers: Hypothyroidism type: acquired Qualified Code(s): E03.9 - Hypothyr oidism, unspecified (8) Hypernatremia: Status: Acute Reason for Visit Reason for Visit: BACK PAIN Hospital Course Hospital Course Pleasant 41-year-old lady with history of chronic back pain with lumbar stenosis, neurogenic claudication, history of alcohol use disorder, remote history of IV drug use, discitis, hepatic encephalopathy, mental health disorder, presented to evaluation with complaints including back pain, some abdominal pain, confused on presentation, with finding of abscess of right buttock for which she underwent I&D, was treated with Zosyn, vancomycin. With noted hepatic encephalopathy with hyperammonemia was started on lactulose, rifaximin. With gradual improvement in mental status. During hospitalization severe hypokalemia required replacement repeatedly for which she is prescribed supplementation at discharge. Please follow-up potassium level at next visit/opportunity. At discharge she will complete a course of antibiotics with ciprofloxacin, doxycycline. Cultures so far remain negative from blood, buttock wound cultures with moderate mixed superficial vitaly on day 3 final culture. Please reassess for continued healing and resolution of abscess, she is asked to follow-up with surgery for assessment in office in 1 week as well. At discharge she continues on lactulose, rifaximin for hepatic encephalopathy. Please continue lactulose doses every 6 hours until 2-3 soft bowel movements achieved per day. Then hold until the next day. Continue rifaximin. Please arrange follow-up with regards to liver cirrhosis, with consideration also for referral to hepatology. With liver primary abnormality on presentation, T bili up to 4.5, mild transaminitis, alk phos up to 260 she was additionally assessed with abdominal ultrasound which showed hepatomegaly with coarse echogenicity suspicious for hepatocellular disease, cholelithiasis, no gallbladder wall thickening or pericholecystic fluid. Normal CBD. Noted echogenic pancreas suspicious for pancreatitis, however, lipase was normal. She remained free of abdominal pain after presentation for the remainder of hospitalization. Continue to encourage her to abstain from any alcohol. Thrombocytopenia also noted on presentation likely related to EtOH has gradually resolved. Please follow-up blood counts as she was also noted to have acute on chronic anemia hemoglobin down to 7.3, although has gradually improved. Please follow-up, sister with arrangement of endoscopic evaluation for further assessment of anemia, as well as in setting of liver cirrhosis to assess for any esophageal varices. Noted low TSH during hospitalization, her levothyroxine dose was decreased initially to 50 mcg, on discharge continues at lower dose of 75 mcg compared to previous home dose of 100 mcg. Please reassess thyroid function in 2 weeks. Continue follow-up once she is back to baseline health with regards to chronic back pain spinal stenosis and neurogenic claudication. Physical Exam Const: COMMON NORMALS: patient oriented x3 and alert GENERAL APPEARANCE: cooperative ORIENTATION/CONSCIOUSNESS: Yes awake HENMT: COMMON NORMALS: oropharynx normal Neck/C-Spine: COMMON NORMALS: no JVD Resp: COMMON NORMALS: normal respiratory effort and clear to auscultation bilaterally AUSCULTATION: clear to auscultation bilaterally Cardio: COMMON NORMALS: no JVD, regular rhythm, S1 normal heart sound present, S2 normal heart sound present and No murmurs present (Cardio) RHYTHM: regular rhythm HEART SOUNDS: S1 normal heart sound present and S2 normal heart sound present GI: COMMON NORMALS: Normal to inspection, nondistended, normoactive bowel sounds present, Soft to palpation and non-tender PALPATION: Yes Soft to palpation Extremity: COMMON NORMALS: no joint enlargement and no pedal edema Neuro: COMMON NORMALS: patient oriented x3 and moves all extremities SENSORIUM/ORIENTATION: Yes alert Skin: COMMON NORMALS: no rashes or lesions noted GENERAL SKIN EXAM: no rashes or lesions noted OTHER: I&D incision, no surrounding cellulitis. Small amount of purulent drainage. Urinary Catheter Management: [place]: Cath Placed During This Visit: yes Reason for Continuing Indwelling Catheter: Acute Urinary Retention or Obstruction Urinary Catheter Date of Insertion: 04/08/22 Urinary Catheter Time of Insertion: 10:30 Discharge Data Studies Completed and Pending Completed Studies During Hospitalization Category Date Time Status CT abdomen pelvis wo con [id number] Stat Cat Scan 04/07/22 07:[address] head wo con* [id number] Stat Cat Scan 04/07/22 06:34 Completed XR chest 1V portable [id number] Stat Exams 04/07/22 09:44 Completed US abdomen limited [id number] Stat Ultrasound 04/07/22 11:17 Completed Pending at discharge Category Date Time Status Abscess Culture and Gram Stain Routine Lab 04/09/22 07:44 Results Anaerobic Culture Routine Lab 04/09/22 07:44 Results Complete Blood Count w/Auto AM LABS Lab 04/14/22 04:00 Ordered Complete Blood Count w/Auto AM LABS Lab 04/15/22 04:00 Ordered Comprehensive Metabolic Panel AM LABS Lab 04/14/22 04:00 Ordered Comprehensive Metabolic Panel AM LABS Lab 04/15/22 04:00 Ordered US soft tissue and or extremity [US soft tissue/ Ultrasound 04/13/22 10:22 Ordered extremity [id number]] Routine Radiology Impressions Head CT 04/07/22 06:34 IMPRESSION: No acute intracranial abnormality. Abdomen/Pelvis CT 04/07/22 07:41 IMPRESSION: 1. Suggestion of diffuse edema involving the pancreas with peripancreatic inflammatory stranding suspicious for pancreatitis. Recommend correlation with pancreatic enzymes. Images in the upper abdomen are degraded by motion. 2. Cholelithiasis or gallbladder sludge. No fluid in the gallbladder fossa. This can be followed up with ultrasound. 3. No hydronephrosis in either kidney. 4. Stable splenomegaly. 5. Small amount of free fluid in the pelvis. 6. Chronic changes of discitis L4-L5 and L5-S1 similar to the prior CT December 14, 2021. Chest X-Ray 04/07/22 09:44 Impression: Negative chest. Abdomen Ultrasound 04/07/22 11:17 IMPRESSION: 1. Hepatomegaly with coarse echogenicity suspicious for hepatocellular disease. Recommend correlation with liver function tests. 2. Cholelithiasis. No gallbladder wall thickening or pericholecystic fluid. 3. Normal common bile duct. 4. No hydronephrosis in RIGHT kidney. 5. Echogenic pancreas suspicious for pancreatitis as discussed on the concurrent CT. Laboratory Results WBC 11.9 10^3/uL (4.0-10.0) H 04/13/22 04:41 Corrected WBC Cancelled 04/10/22 01:05 RBC 4.15 10^6/uL (4.1-5.3) 04/13/22 04:41 Hgb 9.4 g/dL (11.5-15.3) L 04/13/22 04:41 Hct 32.7 % (37.0-47.0) L 04/13/22 04:41 MCV 78.8 fl (81-99) L 04/13/22 04:41 MCH 22.7 pg (28.0-34.0) L 04/13/22 04:41 MCHC 28.7 g/dL (30.0-36.0) L 04/13/22 04:41 RDW 25.9 % (12.1-15.1) H 04/13/22 04:41 Plt Count 210 10^3/cmm (130-400) D 04/13/22 04:41 MPV 10.1 fL (7.4-10.4) 04/13/22 04:41 Gran % Cancelled 04/10/22 01:05 Neut % (Auto) 72.0 % 04/13/22 04:41 Lymph % (Auto) 16.2 % 04/13/22 04:41 [place] % (Auto) 9.9 % 04/13/22 04:41 Eos % (Auto) 0.7 % 04/13/22 04:41 Baso % (Auto) 0.3 % 04/13/22 04:41 Neut # (Auto) 8.53 10^3/uL (1.8-7.7) H 04/13/22 04:41 Lymph # (Auto) 1.9 10^3/uL (0.8-4.8) 04/13/22 04:41 [place] # (Auto) 1.2 10^3/uL (0.2-0.9) H 04/13/22 04:41 Eos # (Auto) 0.1 10^3/uL (0.0-0.8) 04/13/22 04:41 Baso # (Auto) 0.0 10^3/uL (0.0-0.1) 04/13/22 04:41 Absolute Gran (auto) Cancelled 04/10/22 01:05 Nucleated RBC % (auto) 0.2 % 04/13/22 04:41 Nucleated RBCs # 0.0 /100WBC 04/13/22 04:41 Hypochromasia 1+ H 04/10/22 03:40 Target Cells 1+ H 04/10/22 03:40 Tear Drop Cells Trace 04/10/22 03:40 Ovalocytes Trace 04/10/22 03:40 [place] Cells Trace 04/10/22 03:40 Schistocytes Trace 04/10/22 03:40 Specimen Type Arterial 04/07/22 07:00 Sample Site Radial, right 04/07/22 07:00 ABG pH 7.52 (7.35-7.45) H 04/07/22 07:00 ABG pCO2 18.5 mmHg (35-45) L* 04/07/22 07:00 ABG pO2 101.0 mmHg (80.0-100.0) H 04/07/22 07:00 ABG HCO3 15.1 mmol/L (22-26) L 04/07/22 07:00 ABG Base Excess -6.7 mmol/L (-2.0-2.0) L 04/07/22 07:00 [place] Test Pos 04/07/22 07:00 Hematocrit 24.1 % (37-47) L 04/07/22 07:00 O2 Delivery Device Room air 04/07/22 07:00 FiO2 21.0 % 04/07/22 07:00 Director Of Adult Epilepsy ID Ed 04/07/22 07:00 Sodium 140 mmol/L (136-145) 04/13/22 04:41 Potassium 2.4 mmol/L (3.5-5.1) L* 04/13/22 04:41 Chloride 109 mmol/L (98-107) H 04/13/22 04:41 Carbon Dioxide 14 mmol/L (22-29) L 04/13/22 04:41 Anion Gap 19.4 (5-19) H 04/13/22 04:41 BUN 6 mg/dL (6-20) 04/13/22 04:41 Creatinine 0.4 mg/dL (0.5-0.9) L 04/13/22 04:41 GFR Calculation 175.9 mL/min (90-130) H 04/13/22 04:41 Glucose 245 mg/dL (65-115) H 04/13/22 04:41 POC Glucose 313 mg/dL (70-110) H 04/13/22 06:16 Calculated Osmolality 296 mOsm/kg (285-295) H 04/13/22 04:41 Lactic Acid 3.1 mmol/L (0.5-2.2) H 04/07/22 07:24 Lactic Acid (Sepsis) 2.4 mmol/L (0.5-2.2) H 04/07/22 10:47 Calcium 8.2 mg/dL (8.5-10.5) L 04/13/22 04:41 Phosphorus 1.5 mg/dL (2.5-4.5) L 04/09/22 04:15 Magnesium 1.8 mg/dL (1.7-2.3) 04/13/22 04:41 Total Bilirubin 2.4 mg/dL (0.15-1.2) H 04/13/22 04:41 Direct Bilirubin 2.40 mg/dL (0.00-0.30) H 04/07/22 07:24 AST 113 U/L (0-32) H 04/13/22 04:41 ALT 21 U/L (0-33) 04/13/22 04:41 Alkaline Phosphatase 260 U/L (35-105) H 04/13/22 04:41 Ammonia 100 umol/L (11-51) H 04/10/22 01:05 Total Protein 7.8 g/dL (6.6-8.7) 04/13/22 04:41 Albumin 2.6 g/dL (3.5-5.2) L 04/13/22 04:41 Globulin 5.2 g/dL (1.3-4.6) H 04/13/22 04:41 Lipase 27 U/L (13-60) 04/07/22 07:24 TSH 0.02 uIU/mL (0.27-4.20) L 04/07/22 07:24 Free T4 1.80 ng/dL (0.82-1.77) H 04/07/22 07:24 HCG, Qual Negative (Negative) 04/07/22 21:26 Urine Color Yellow (Yellow) 04/07/22 08:45 Urine Appearance Clear (CLEAR) 04/07/22 08:45 Urine pH 7 (5-7) 04/07/22 08:45 Ur Specific [place] 1.000 (1.005-1.030) L 04/07/22 08:45 Urine Protein Neg (Negative) 04/07/22 08:45 Urine Glucose (UA) Norm (Normal) 04/07/22 08:45 Urine Ketones 1+ (Negative) H 04/07/22 08:45 Urine Blood Neg (Negative) 04/07/22 08:45 Urine Nitrate Negative (Negative) 04/07/22 08:45 Urine Bilirubin 1+ (Negative) H 04/07/22 08:45 Urine Urobilinogen 4+ mg/dL (Negative) H 04/07/22 08:45 Ur Leukocyte Esterase Trace (Negative) H 04/07/22 08:45 Urine RBC 0-4 /hpf (0-2) H 04/07/22 08:45 Urine WBC 0-4 /hpf (0-5) H 04/07/22 08:45 Ur Squamous Epith Cells 0-4 /hpf (0-5) H 04/07/22 08:45 Amorphous Sediment Not Reportable 04/07/22 08:45 Urine Bacteria None /hpf (NONE) 04/07/22 08:45 Vancomycin Trough 14.4 ug/mL (10-15) 04/12/22 13:36 Salicylates < 0.3 mg/dL (3-10) L 04/07/22 07:24 Urine Opiates Screen Negative ng/mL (Negative) 04/07/22 08:45 Acetaminophen < 5.0 ug/mL (10-30) L 04/07/22 07:24 Ur Barbiturates Screen Negative ng/mL (Negative) 04/07/22 08:45 Ur Phencyclidine Scrn Negative ng/mL (Negative) 04/07/22 08:45 Ur Amphetamines Screen Negative ng/mL (Negative) 04/07/22 08:45 U Benzodiazepines Scrn Positive ng/mL (Negative) H 04/07/22 08:45 Urine Cocaine Screen Negative ng/mL (Negative) 04/07/22 08:45 U Marijuana (THC) Screen Negative ng/mL (Negative) 04/07/22 08:45 Vitals Last Vital Signs Temp 98.2 F 04/13/22 07:46 Pulse 73 04/13/22 07:46 Resp 18 04/13/22 07:46 BP 161/81 04/13/22 07:46 Pulse Ox 99 04/13/22 07:46 O2 Del Method 04/13/22 07:46 O2 Flow Rate 5 04/09/22 08:30 Discharge Plan Discharge Patient Disposition: Xfer SNF Condition: Stable Prescriptions: New ciprofloxacin HCl 500 mg Tablet 500 mg PO BID@0900,2100 Qty: 13 0RF doxycycline monohydrate 100 mg Tablet 100 mg PO BID Qty: 13 0RF lactulose 20 gram/30 mL Solution 30 g PO Q6H Qty: 2880 0RF Rx Instructions: Until 2-3 soft BM then hold until next day Xifaxan 550 mg Tablet 550 mg PO BID Qty: 180 0RF Vitamin B-1 (mononitrate) 100 mg Tablet 100 mg PO DAILY Qty: 90 0RF Thera 400 mcg Tablet 1 tab PO DAILY Qty: 90 0RF potassium chloride 20 mEq tablet extended release 40 meq PO DAILY Qty: 60 0RF Continued pen needle, diabetic [Comfort EZ Pen [place]] 29 gauge x 1/2 needle See Rx Instructions .ROUTE .COMPLEX Qty: 100 1RF Dose Instruction: USE THREE TIMES DAILY Rx Instructions: USE THREE TIMES DAILY insulin glargine [Lantus U-100 Insulin] 100 unit/mL solution 20 unit SUBCUT DAILY Qty: 10 1RF insulin lispro [Humalog U-100 Insulin] 100 unit/mL solution See Rx Instructions .ROUTE .COMPLEX Qty: 10 0RF Rx Instructions: insulin sliding scale tid and bedtime, before meals, based on sliding scale propranolol 40 mg tablet 40 mg PO BID Qty: 30 0RF clonidine HCl 0.1 mg tablet 0.1 mg PO BID 30 Days Qty: 60 0RF folic acid 1 mg tablet 1 mg PO DAILY 30 Days Qty: 30 0RF amlodipine 10 mg tablet 10 mg PO DAILY 30 Days Qty: 30 0RF fluoxetine 20 mg Capsule 60 mg PO DAILY 30 Days Qty: 90 1RF Percocet 5-325 mg Tablet 1 tab PO Q6H MDD 4 tabs PRN (Reason: Pain) Qty: 14 0RF Rx Instructions: rx filled 03/31/22 #12 prazosin 1 mg Capsule 2 mg PO BEDTIME 30 Days Qty: 60 1RF Changed levothyroxine 100 mcg tablet 75 mcg PO DAILY Qty: 30 0RF Discontinued ibuprofen 200 mg Tablet 800 mg PO Q6H PRN (Reason: Pain) No Action (DME) blood sugar diagnostic Strip See Rx Instructions .ROUTE .MEDSUPPLY Qty: 100 5RF Rx Instructions: use to check blood sugar 3-4 times per day (DME) blood sugar diagnostic Strip See Rx Instructions .Route Qty: 100 2RF Rx Instructions: As directed Discharge Orders: Discharge Order (Routine); Ordered 04/13/22 Ordered By: Miguel Ángel Stephens Referrals: [facility] [Other] Michael Gonzalez DO [Physician] - 04/21/22 1:15 pm MADAN Mayfield, PEDIATRIC ALLERGIST [Primary Care Provider] - 4-7 days Discharge Diet: Soft Mechanical Discharge Activity: Increase activity as tolerated and As per PT/OT instructions Patient Instructions: Opioid Safety Activity Restrictions/Additional Instructions: Complete course after drainage of abscess. Continue lactulose daily, continue every 6 hours until 2-3 soft bowel movements achieved, then hold further doses until the next day. Continue rifaximin. Please discuss with your primary doctor referral for follow-up with liver specialist. Discussed with your primary doctor regarding setting up upper endoscopic evaluation for variceal disease if you have not had one. Discussed with your doctor other chronic follow-up related to liver cirrhosis. Please discuss with your primary doctor follow-up regarding anemia. He also had low platelets in the hospital although this has improved. Please abstain from any alcohol as this will further worsen the condition of your liver, as well as lead to other abnormalities including low platelets, risk of bleeding. Please have your primary doctor follow-up thyroid function in 2 weeks. Your levothyroxine dose is decreased to 75 mcg. Discharge Attestations Time Spent in Discharge Care*: greater than 30 min Status at Discharge: Cognitive status at discharge: cognitively intact , Behavioral status at discharge: cooperative , Quality Metrics Clinical Quality Measures [ No reported AMI, CVA or VTE this stay] Coding Level of Care Code Acute Chg FW DC note Exam Comprehensive Diagnoses Abscess of right buttock L02.31 Confusion R41.0 Acute hepatic encephalopathy K72.00 Acute on chronic anemia D64.9 Acute hypokalemia E87.6 Thrombocytopenia D69.6 Hypothyroid E03.9 Hypothyroidism type: acquired Hypernatremia E87.0
[2022-04-13 11:05] LABS: Glucose Point of Care 260 mg/dL (70-110)
[2022-04-13 11:50] VITALS: BP 151/81; PULSE 71; RESP 18; TEMP 36.6; O2SAT 97
[2022-04-13 13:51] LABS: SARS Covid-2 Antigen Negative (Negative)
[2022-04-13 15:44] VITALS: BP 158/96; PULSE 73; RESP 18; TEMP 36.6; O2SAT 100
[2022-04-13] MEDS: HYDROcodone-acetaminophen 7.5-325 mg Tablet 1 TAB PO (16:21)
--- NOTE | 2022-04-13 17:01 | PC.NURSE ---
Patient up in room and agitated about being here. patient yelled was at the desk yelling I just want to go home . I'm walking out of here . She refused to go back to her room and sat in a chair at the nurses station. Dr. Stephens notified and assessed patient at the desk. new orders placed. while waiting for orders. patient was agreeable to going back to her room. after sitting on the side of the bed and drinking a cola. patient is less agitated, but still upset and crying for her mother. Attempted to call her mother, and there was no answer. will reattempt to call again within the hour.
[2022-04-13 17:05] LABS: Glucose Point of Care 281 mg/dL (70-110)
--- NOTE | 2022-04-13 18:00 | PC.NURSE ---
patient sitting up on side of bed comfortably. agreeable to take evening meds.
[2022-04-13 20:00] VITALS: BP 159/82; PULSE 74; RESP 16; TEMP 36.8; O2SAT 99
[2022-04-13 21:25] LABS: Glucose Point of Care 294 mg/dL (70-110)
[2022-04-13 23:49] VITALS: BP 141/68; PULSE 69; RESP 17; TEMP 36.5; O2SAT 98
[2022-04-14] MEDS: lactulose oral liq 20 gm/30 mL UDC 30 GM PO ×3 (02:38→14:24)
[2022-04-14] MEDS: haloperidol inj 5 mg/mL INJ 1 mL 2 MG IM (02:57)
--- NOTE | 2022-04-14 03:00 | PC.NURSE ---
pt becoming agitated, insisting in going home, redirection unsuccessful, PRN haldol administered
[2022-04-14 04:00] VITALS: BP 150/90; PULSE 67; RESP 17; TEMP 36.6; O2SAT 98
[2022-04-14 05:37] LABS: Basophils % 0.2 %; Eosinophils # 0.2 10^3/uL (0.0-0.8); Eosinophils % 1.7 %; Hematocrit 31.5 % (37.0-47.0); Lymphocytes # 2.5 10^3/uL (0.8-4.8); Lymphocytes % 24.7 %; Mean Corpuscular HGB Conc 28.6 g/dL (30.0-36.0); Mean Corpuscular Hemoglobin 23.1 pg (28.0-34.0); Mean Platelet Volume 9.5 fL (7.4-10.4); Monocytes # 1.1 10^3/uL (0.2-0.9); Monocytes % 10.6 %; Neutrophils # 6.24 10^3/uL (1.8-7.7); Neutrophils % 62.1 %; Nucleated Red Blood Cells % 0 %; Platelet Count 174 10^3/cmm (130-400); Red Blood Count 3.89 10^6/uL (4.1-5.3)
[2022-04-14 05:57] LABS: Alanine Aminotransferase 25 U/L (0-33); Albumin Level 2.3 g/dL (3.5-5.2); Alkaline Phosphatase 260 U/L (35-105); Aspartate Amino Transferase 105 U/L (0-32); Blood Urea Nitrogen 7 mg/dL (6-20); Calcium 8.3 mg/dL (8.5-10.5); Carbon Dioxide 11 mmol/L (22-29); Chloride 114 mmol/L (98-107); Globulin 4.8 g/dL (1.3-4.6); Glomerular Filtration Rate 175.9 mL/min (90-130); Glucose 235 mg/dL (65-115); Osmolality Calculated 298 mOsm/kg (285-295); Sodium 141 mmol/L (136-145); Total Bilirubin 1.9 mg/dL (0.15-1.2); Total Protein 7.1 g/dL (6.6-8.7)
[2022-04-14 06:04] LABS: Anion Gap 18.3 (5-19)
[2022-04-14 06:05] LABS: Potassium 2.3 mmol/L (3.5-5.1)
[2022-04-14 06:16] LABS: Ammonia 164 umol/L (11-51)
[2022-04-14 06:28] LABS: Glucose Point of Care 214 mg/dL (70-110)
[2022-04-14] MEDS: levothyroxine 50 mcg Tablet PO (06:32)
[2022-04-14] MEDS: potassium chloride ER 20 mEq Tablet 80 MEQ PO (06:32)
[2022-04-14 08:00] VITALS: BP 143/80; PULSE 63; RESP 18; TEMP 36.9; O2SAT 99
[2022-04-14] MEDS: insulin lispro 100 unit/1 mL SUBCUT ×3 (08:35→17:37)
[2022-04-14] MEDS: fluoxetine 20 mg Capsule 60 MG PO (08:36)
[2022-04-14] MEDS: multivitamin therapeutic Tablet 1 TAB PO (08:36)
[2022-04-14] MEDS: folic acid 1 mg Tablet PO (08:37)
[2022-04-14] MEDS: ciprofloxacin 500 mg Tablet PO ×2 (08:37→20:09)
[2022-04-14] MEDS: potassium chloride ER 20 mEq Tablet 40 MEQ PO (08:37)
[2022-04-14] MEDS: thiamine 100 mg Tablet PO (08:37)
[2022-04-14] MEDS: amlodipine 10 mg Tablet PO (08:37)
[2022-04-14] MEDS: doxycycline 100 mg Tablet PO ×2 (08:37→17:08)
[2022-04-14] MEDS: pantoprazole DR 40 mg Tablet PO (08:37)
[2022-04-14] MEDS: insulin glargine 100 units/1 mL 10 UNIT SUBCUT (08:40)
[2022-04-14] MEDS: propranolol 40 mg Tablet PO ×2 (08:40→20:09)
--- NOTE | 2022-04-14 10:11 | PC.CHAP ---
Pastoral Care Encounter/Spiritual Assessment Type of Contact [] Declined occupational therapy teacher visit [] Patient/Family/Request visit [] Outpatient visit [] Follow-up visit [] Physician referral [] Code/Alert [x] Routine visit [] Staff referral [] Actively dying [] Patient sleeping [] Family support [] [] Out of room [] Palliative care [] [] Receiving care in room [] Pre-surgical visit [] Trauma [] Long length of stay [] ICU visit [] Other: Relational/Emotional Strength [x] Patient feels connected with others/family/visitors/staff [] Distress [] Loneliness/isolation [] Abandonment Spirituality of Patient [x] Person of Connie [] Attends Roman Catholic of their Connie [x] Believes in Prayer [x] Reads Bible or Pentecostalism materials [] There are Spiritual issues to be addressed Program Services Planner Interventions [] Prayer [x] Active listening [x] Non-anxious presence [x] Spiritual/emotional support [] Crisis/trauma care [] Spiritual counseling [] Bereavement support [] Provided bereavement packet [] Provided Bible/devotional materials [] Provided toy/stuffed animal, coloring book to patient or family member [] Provided Communion [] Anointing/[place] [] Salvation [x] Completed spiritual assessment [] Other: Impact on Illness or Injury [] Angry [] Fearful [] Anxious [] Often cries [] Exhaustion [] Unable to work [] Unable to attend hinduism [] Unable to walk/stand [] Unable to read [] Unable to drive [] Unable to eat/drink [] Unable to sleep [] Unable to be with family [] Patient intubated [] Other: Summary Program Services Planner inquired as to living arrangements upon release. Pt said she will either go to a rehab or home but she hasn't decided yet. Pt has five children and numerous grandchildren. Pt said she is a person of connie but does not attend zoroastrian anywhere. She declined prayer. She did take a Bible and Daily Bread. Time spent with patient 5m
--- NOTE | 2022-04-14 11:11 | P.DS_ITS ---
Discharge Providers Date of Admission: 04/07/22 14:30 Date of Discharge: April 14, 2022 Attending Provider at Admission: Gaudencio Reyes MD Attending Provider at Discharge: Miguel Ángel Stephens Primary Care Provider: FARHAT Rivera Diagnoses at Discharge Discharge Diagnosis (1) Abscess of right buttock: Status: Acute (2) Confusion: Status: Acute (3) Acute hepatic encephalopathy: Status: Acute (4) Acute on chronic anemia: Status: Acute (5) Acute hypokalemia: Status: Acute (6) Thrombocytopenia: Status: Acute (7) Hypothyroid: Status: Acute Qualifiers: Hypothyroidism type: acquired Qualified Code(s): E03.9 - Hypothyr oidism, unspecified (8) Hypernatremia: Status: Acute Reason for Visit Reason for Visit: BACK PAIN Hospital Course Hospital Course Pleasant 41-year-old lady with history of chronic back pain with lumbar stenosis, neurogenic claudication, history of alcohol use disorder, remote history of IV drug use, discitis, hepatic encephalopathy, mental health disorder, presented to evaluation with complaints including back pain, some abdominal pain, confused on presentation, with finding of abscess of right buttock for which she underwent I&D, was treated with Zosyn, vancomycin. With noted hepatic encephalopathy with hyperammonemia was started on lactulose, rifaximin. With gradual improvement in mental status. During hospitalization severe hypokalemia required replacement repeatedly for which she is prescribed supplementation at discharge. Please follow-up potassium level at next visit/opportunity. At discharge she will complete a course of antibiotics with ciprofloxacin, doxycycline. Cultures so far remain negative from blood, buttock wound cultures with moderate mixed superficial vitaly on day 3 final culture. Please reassess for continued healing and resolution of abscess, she is asked to follow-up with surgery for assessment in office in 1 week as well. At discharge she continues on lactulose, rifaximin for hepatic encephalopathy. Please continue lactulose doses every 6 hours until 3 soft bowel movements achieved per day. Then hold until the next day. Continue rifaximin. Please follow-up ammonia levels. Please arrange follow-up with regards to liver cirrhosis, with consideration also for referral to hepatology. With liver primary abnormality on presentation, T bili up to 4.5, mild transaminitis, alk phos up to 260 she was additionally assessed with abdominal ultrasound which showed hepatomegaly with coarse echogenicity suspicious for hepatocellular disease, cholelithiasis, no gallbladder wall thickening or pericholecystic fluid. Normal CBD. Noted echogenic pancreas suspicious for pancreatitis, however, lipase was normal. She remained free of abdominal pain after presentation for the remainder of hospitalization. Continue to encourage her to abstain from any alcohol. Thrombocytopenia also noted on presentation likely related to EtOH has gradually resolved. Please follow-up blood counts as she was also noted to have acute on chronic anemia hemoglobin down to 7.3, although has gradually improved. Please follow-up, sister with arrangement of endoscopic evaluation for further assessment of anemia, as well as in setting of liver cirrhosis to assess for any esophageal varices. Noted low TSH during hospitalization, her levothyroxine dose was decreased initially to 50 mcg, on discharge continues at lower dose of 75 mcg compared to previous home dose of 100 mcg. Please reassess thyroid function in 2 weeks. Continue follow-up once she is back to baseline health with regards to chronic back pain spinal stenosis and neurogenic claudication. Physical Exam Const: COMMON NORMALS: alert GENERAL APPEARANCE: cooperative ORIENTA TION/CONSCIOUSNESS: Yes awake OTHER: Today she is much calmer, lucid, states that elevated ammonia level makes her agitated. Has had 3 bowel movements so far. Today denies any complaints. States ready to proceed for rehabilitation in [place]. HENMT: COMMON NORMALS: oropharynx normal Neck/C-Spine: COMMON NORMALS: no JVD Resp: COMMON NORMALS: normal respiratory effort and clear to auscultation bilaterally AUSCULTATION: clear to auscultation bilaterally Cardio: COMMON NORMALS: no JVD, regular rhythm, S1 normal heart sound present, S2 normal heart sound present and No murmurs present (Cardio) RHYTHM: regular rhythm HEART SOUNDS: S1 normal heart sound present and S2 normal heart sound present GI: COMMON NORMALS: Normal to inspection, nondistended, normoactive bowel sounds present, Soft to palpation and non-tender PALPATION: Yes Soft to palpation Extremity: COMMON NORMALS: no joint enlargement and no pedal edema Neuro: COMMON NORMALS: moves all extremities SENSORIUM/ORIENTATION: Yes alert Skin: COMMON NORMALS: no rashes or lesions noted GENERAL SKIN EXAM: no rashes or lesions noted OTHER: I&D incision, no surrounding cellulitis. Small amount of purulent drainage. Urinary Catheter Management: [place]: Cath Placed During This Visit: yes, but has since been removed by the nurse Reason for Continuing Indwelling Catheter: Does Not Meet Criteria Urinary Catheter Date of Insertion: 04/08/22 Urinary Catheter Time of Insertion: 10:30 Date Urinary Catheter Removed: 04/14/22 Time Urinary Catheter Discontinued: 10:58 Discharge Data Studies Completed and Pending Completed Studies During Hospitalization Category Date Time Status CT abdomen pelvis wo con [id number] Stat Cat Scan 04/07/22 07:[address] head wo con* [id number] Stat Cat Scan 04/07/22 06:34 Completed XR chest 1V portable [id number] Stat Exams 04/07/22 09:44 Completed US abdomen limited 96666 Stat Ultrasound 04/07/22 11:17 Completed US soft tissue and or extremity [US soft tissue/ Ultrasound 04/13/22 10:22 Completed extremity [id number]] Routine Pending at discharge Category Date Time Status Abscess Culture and Gram Stain Routine Lab 04/09/22 07:44 Results Anaerobic Culture Routine Lab 04/09/22 07:44 Results Complete Blood Count w/Auto AM LABS Lab 04/15/22 04:00 Ordered Comprehensive Metabolic Panel AM LABS Lab 04/15/22 04:00 Ordered Radiology Impressions Head CT 04/07/22 06:34 IMPRESSION: No acute intracranial abnormality. Abdomen/Pelvis CT 04/07/22 07:41 IMPRESSION: 1. Suggestion of diffuse edema involving the pancreas with peripancreatic inflammatory stranding suspicious for pancreatitis. Recommend correlation with pancreatic enzymes. Images in the upper abdomen are degraded by motion. 2. Cholelithiasis or gallbladder sludge. No fluid in the gallbladder fossa. This can be followed up with ultrasound. 3. No hydronephrosis in either kidney. 4. Stable splenomegaly. 5. Small amount of free fluid in the pelvis. 6. Chronic changes of discitis L4-L5 and L5-S1 similar to the prior CT December 14, 2021. Chest X-Ray 04/07/22 09:44 Impression: Negative chest. Abdomen Ultrasound 04/07/22 11:17 IMPRESSION: 1. Hepatomegaly with coarse echogenicity suspicious for hepatocellular disease. Recommend correlation with liver function tests. 2. Cholelithiasis. No gallbladder wall thickening or pericholecystic fluid. 3. Normal common bile duct. 4. No hydronephrosis in RIGHT kidney. 5. Echogenic pancreas suspicious for pancreatitis as discussed on the concurrent CT. Soft Tissue Ultrasound 04/13/22 10:22 IMPRESSION: 1. No soft tissue abscess in the RIGHT gluteal region. 2. Soft tissue edema and a soft tissues tract with surrounding edema. Laboratory Results WBC 10.0 10^3/uL (4.0-10.0) 04/14/22 05:19 Corrected WBC Cancelled 04/10/22 01:05 RBC 3.89 10^6/uL (4.1-5.3) L 04/14/22 05:19 Hgb 9.0 g/dL (11.5-15.3) L 04/14/22 05:19 Hct 31.5 % (37.0-47.0) L 04/14/22 05:19 MCV 81.0 fl (81-99) 04/14/22 05:19 MCH 23.1 pg (28.0-34.0) L 04/14/22 05:19 MCHC 28.6 g/dL (30.0-36.0) L 04/14/22 05:19 RDW 26.0 % (12.1-15.1) H 04/14/22 05:19 Plt Count 174 10^3/cmm (130-400) 04/14/22 05:19 MPV 9.5 fL (7.4-10.4) 04/14/22 05:19 Gran % Cancelled 04/10/22 01:05 Neut % (Auto) 62.1 % 04/14/22 05:19 Lymph % (Auto) 24.7 % 04/14/22 05:19 [place] % (Auto) 10.6 % 04/14/22 05:19 Eos % (Auto) 1.7 % 04/14/22 05:19 Baso % (Auto) 0.2 % 04/14/22 05:19 Neut # (Auto) 6.24 10^3/uL (1.8-7.7) 04/14/22 05:19 Lymph # (Auto) 2.5 10^3/uL (0.8-4.8) 04/14/22 05:19 [place] # (Auto) 1.1 10^3/uL (0.2-0.9) H 04/14/22 05:19 Eos # (Auto) 0.2 10^3/uL (0.0-0.8) 04/14/22 05:19 Baso # (Auto) 0.0 10^3/uL (0.0-0.1) 04/14/22 05:19 Absolute Gran (auto) Cancelled 04/10/22 01:05 Nucleated RBC % (auto) 0 % 04/14/22 05:19 Nucleated RBCs # 0.0 /100WBC 04/14/22 05:19 Hypochromasia 1+ H 04/10/22 03:40 Target Cells 1+ H 04/10/22 03:40 Tear Drop Cells Trace 04/10/22 03:40 Ovalocytes Trace 04/10/22 03:40 [place] Cells Trace 04/10/22 03:40 Schistocytes Trace 04/10/22 03:40 Specimen Type Arterial 04/07/22 07:00 Sample Site Radial, right 04/07/22 07:00 ABG pH 7.52 (7.35-7.45) H 04/07/22 07:00 ABG pCO2 18.5 mmHg (35-45) L* 04/07/22 07:00 ABG pO2 101.0 mmHg (80.0-100.0) H 04/07/22 07:00 ABG HCO3 15.1 mmol/L (22-26) L 04/07/22 07:00 ABG Base Excess -6.7 mmol/L (-2.0-2.0) L 04/07/22 07:00 [place] Test Pos 04/07/22 07:00 Hematocrit 24.1 % (37-47) L 04/07/22 07:00 O2 Delivery Device Room air 04/07/22 07:00 FiO2 21.0 % 04/07/22 07:00 [employer] ID Ed 04/07/22 07:00 Sodium 141 mmol/L (136-145) 04/14/22 05:19 Potassium 2.3 mmol/L (3.5-5.1) L* 04/14/22 05:19 Chloride 114 mmol/L (98-107) H 04/14/22 05:19 Carbon Dioxide 11 mmol/L (22-29) L 04/14/22 05:19 Anion Gap 18.3 (5-19) 04/14/22 05:19 BUN 7 mg/dL (6-20) 04/14/22 05:19 Creatinine 0.4 mg/dL (0.5-0.9) L 04/14/22 05:19 GFR Calculation 175.9 mL/min (90-130) H 04/14/22 05:19 Glucose 235 mg/dL (65-115) H 04/14/22 05:19 POC Glucose 214 mg/dL (70-110) H 04/14/22 06:25 Calculated Osmolality 298 mOsm/kg (285-295) H 04/14/22 05:19 Lactic Acid 3.1 mmol/L (0.5-2.2) H 04/07/22 07:24 Lactic Acid (Sepsis) 2.4 mmol/L (0.5-2.2) H 04/07/22 10:47 Calcium 8.3 mg/dL (8.5-10.5) L 04/14/22 05:19 Phosphorus 1.5 mg/dL (2.5-4.5) L 04/09/22 04:15 Magnesium 1.8 mg/dL (1.7-2.3) 04/13/22 04:41 Total Bilirubin 1.9 mg/dL (0.15-1.2) H 04/14/22 05:19 Direct Bilirubin 2.40 mg/dL (0.00-0.30) H 04/07/22 07:24 AST 105 U/L (0-32) H 04/14/22 05:19 ALT 25 U/L (0-33) 04/14/22 05:19 Alkaline Phosphatase 260 U/L (35-105) H 04/14/22 05:19 Ammonia 164 umol/L (11-51) H 04/14/22 05:19 Total Protein 7.1 g/dL (6.6-8.7) 04/14/22 05:19 Albumin 2.3 g/dL (3.5-5.2) L 04/14/22 05:19 Globulin 4.8 g/dL (1.3-4.6) H 04/14/22 05:19 Lipase 27 U/L (13-60) 04/07/22 07:24 TSH 0.02 uIU/mL (0.27-4.20) L 04/07/22 07:24 Free T4 1.80 ng/dL (0.82-1.77) H 04/07/22 07:24 HCG, Qual Negative (Negative) 04/07/22 21:26 Urine Color Yellow (Yellow) 04/07/22 08:45 Urine Appearance Clear (CLEAR) 04/07/22 08:45 Urine pH 7 (5-7) 04/07/22 08:45 Ur Specific [place] 1.000 (1.005-1.030) L 04/07/22 08:45 Urine Protein Neg (Negative) 04/07/22 08:45 Urine Glucose (UA) Norm (Normal) 04/07/22 08:45 Urine Ketones 1+ (Negative) H 04/07/22 08:45 Urine Blood Neg (Negative) 04/07/22 08:45 Urine Nitrate Negative (Negative) 04/07/22 08:45 Urine Bilirubin 1+ (Negative) H 04/07/22 08:45 Urine Urobilinogen 4+ mg/dL (Negative) H 04/07/22 08:45 Ur Leukocyte Esterase Trace (Negative) H 04/07/22 08:45 Urine RBC 0-4 /hpf (0-2) H 04/07/22 08:45 Urine WBC 0-4 /hpf (0-5) H 04/07/22 08:45 Ur Squamous Epith Cells 0-4 /hpf (0-5) H 04/07/22 08:45 Amorphous Sediment Not Reportable 04/07/22 08:45 Urine Bacteria None /hpf (NONE) 04/07/22 08:45 Vancomycin Trough 14.4 ug/mL (10-15) 04/12/22 13:36 Salicylates < 0.3 mg/dL (3-10) L 04/07/22 07:24 Urine Opiates Screen Negative ng/mL (Negative) 04/07/22 08:45 Acetaminophen < 5.0 ug/mL (10-30) L 04/07/22 07:24 Ur Barbiturates Screen Negative ng/mL (Negative) 04/07/22 08:45 Ur Phencyclidine Scrn Negative ng/mL (Negative) 04/07/22 08:45 Ur Amphetamines Screen Negative ng/mL (Negative) 04/07/22 08:45 U Benzodiazepines Scrn Positive ng/mL (Negative) H 04/07/22 08:45 Urine Cocaine Screen Negative ng/mL (Negative) 04/07/22 08:45 U Marijuana (THC) Screen Negative ng/mL (Negative) 04/07/22 08:45 SARS-CoV-2 Ag (Rapid) Negative (Negative) 04/13/22 13:04 Vitals Last Vital Signs Temp 98.5 F 04/14/22 08:00 Pulse 63 04/14/22 08:00 Resp 18 04/14/22 08:00 BP 143/80 04/14/22 08:00 Pulse Ox 99 04/14/22 08:00 O2 Del Method 04/14/22 08:00 O2 Flow Rate 5 04/09/22 08:30 Discharge Plan Discharge Patient Disposition: Xfer SNF Condition: Stable Prescriptions: New ciprofloxacin HCl 500 mg Tablet 500 mg PO BID@0900,2100 Qty: 13 0RF doxycycline monohydrate 100 mg Tablet 100 mg PO BID Qty: 13 0RF lactulose 20 gram/30 mL Solution 30 g PO Q6H Qty: 2880 0RF Rx Instructions: Until 2-3 soft BM then hold until next day Xifaxan 550 mg Tablet 550 mg PO BID Qty: 180 0RF Vitamin B-1 (mononitrate) 100 mg Tablet 100 mg PO DAILY Qty: 90 0RF Thera 400 mcg Tablet 1 tab PO DAILY Qty: 90 0RF potassium chloride 20 mEq tablet extended release 40 meq PO DAILY Qty: 60 0RF Continued pen needle, diabetic [Comfort EZ Pen Cor[place]] 29 gauge x 1/2 needle See Rx Instructions .ROUTE .COMPLEX Qty: 100 1RF Dose Instruction: USE THREE TIMES DAILY Rx Instructions: USE THREE TIMES DAILY insulin glargine [Lantus U-100 Insulin] 100 unit/mL solution 20 unit SUBCUT DAILY Qty: 10 1RF insulin lispro [Humalog U-100 Insulin] 100 unit/mL solution See Rx Instructions .ROUTE .COMPLEX Qty: 10 0RF Rx Instructions: insulin sliding scale tid and bedtime, before meals, based on sliding scale propranolol 40 mg tablet 40 mg PO BID Qty: 30 0RF clonidine HCl 0.1 mg tablet 0.1 mg PO BID 30 Days Qty: 60 0RF folic acid 1 mg tablet 1 mg PO DAILY 30 Days Qty: 30 0RF amlodipine 10 mg tablet 10 mg PO DAILY 30 Days Qty: 30 0RF fluoxetine 20 mg Capsule 60 mg PO DAILY 30 Days Qty: 90 1RF Percocet 5-325 mg Tablet 1 tab PO Q6H MDD 4 tabs PRN (Reason: Pain) Qty: 14 0RF Rx Instructions: rx filled 03/31/22 #12 prazosin 1 mg Capsule 2 mg PO BEDTIME 30 Days Qty: 60 1RF Changed levothyroxine 100 mcg tablet 75 mcg PO DAILY Qty: 30 0RF Discontinued ibuprofen 200 mg Tablet 800 mg PO Q6H PRN (Reason: Pain) No Action (DME) blood sugar diagnostic Strip See Rx Instructions .ROUTE .MEDSUPPLY Qty: 100 5RF Rx Instructions: use to check blood sugar 3-4 times per day (DME) blood sugar diagnostic Strip See Rx Instructions .Route Qty: 100 2RF Rx Instructions: As directed Discharge Orders: Discharge Order (Routine); Ordered 04/14/22 Ordered By: Miguel Ángel Stephens Referrals: Nadiar Floyd [Other] Michael Gonzalez DO [Physician] - 04/21/22 1:15 pm MADAN Mayfield FNP [Primary Care Provider] - 4-7 days Discharge Diet: Soft Mechanical Discharge Activity: Increase activity as tolerated and As per PT/OT instructions Activity Restrictions/Additional Instructions: Complete course after drainage of abscess. Continue lactulose daily, continue every 6 hours until 2-3 soft bowel movements achieved, then hold further doses until the next day. Continue rifaximin. Please discuss with your primary doctor referral for follow-up with liver specialist. Discussed with your primary doctor regarding setting up upper endoscopic evaluation for variceal disease if you have not had one. Discussed with your doctor other chronic follow-up related to liver cirrhosis. Please discuss with your primary doctor follow-up regarding anemia. He also had low platelets in the hospital although this has improved. Please abstain from any alcohol as this will further worsen the condition of your liver, as well as lead to other abnormalities including low platelets, risk of bleeding. Please have your primary doctor follow-up thyroid function in 2 weeks. Your levothyroxine dose is decreased to 75 mcg. Discharge Attestations Time Spent in Discharge Care*: greater than 30 min Status at Discharge: Cognitive status at discharge: cognitively intact , Behavioral status at discharge: cooperative , Quality Metrics Clinical Quality Measures [ No reported AMI, CVA or VTE this stay] Coding Level of Care Code Acute Chg FW DC note Diagnoses Abscess of right buttock L02.31 Confusion R41.0 Acute hepatic encephalopathy K72.00 Acute on chronic anemia D64.9 Acute hypokalemia E87.6 Thrombocytopenia D69.6 Hypothyroid E03.9 Hypothyroidism type: acquired Hypernatremia E87.0
[2022-04-14 11:27] LABS: Glucose Point of Care 428 mg/dL (70-110)
[2022-04-14 12:00] VITALS: BP 143/89; PULSE 68; RESP 18; TEMP 37; O2SAT 99
[2022-04-14 15:50] VITALS: BP 149/86; PULSE 73; RESP 18; TEMP 36.9; O2SAT 100
[2022-04-14 17:05] LABS: Glucose Point of Care 373 mg/dL (70-110)
[2022-04-14] MEDS: HYDROcodone-acetaminophen 7.5-325 mg Tablet 1 TAB PO (20:09)
[2022-04-14 20:11] VITALS: BP 153/90; PULSE 74; RESP 18; TEMP 36.7; O2SAT 100
--- NOTE | 2022-04-14 20:18 | PC.NURSE ---
Addendum entered by Fidelina Brown RN 04/14/22 20:19: Patient left via transport to intermediate. Original Note: Nurse at intermediate updated on nighttime medications.
== END 2022-04-14 20:19 | disposition skilled nursing facility (03) | DRG 602 ==
LOC: ER 10:06 → ICU 18:31 → MEDSURG 04-11 19:39
PROVIDERS: Student in an Organized Health Care Education/Training Program; Surgery; Admitting Provider Internal Medicine; Emergency Provider Emergency Medicine; PCP Nurse Practitioner Family; Visit Provider Internal Medicine
PROC: 0H98XZZ Drainage of Buttock Skin, External Approach (ICD-10-PCS; principal; 2022-04-09 07:00)
DX: L02.31 Cutaneous abscess of buttock (principal); G93.41 Metabolic encephalopathy; F10.188 Alcohol abuse with other alcohol-induced disorder; E87.0 Hyperosmolality and hypernatremia; E87.2 Acidosis; E11.9 Type 2 diabetes mellitus without complications; K70.40 Alcoholic hepatic failure without coma; F31.9 Bipolar disorder, unspecified; D64.9 Anemia, unspecified; F60.3 Borderline personality disorder; I50.9 Heart failure, unspecified; I11.0 Hypertensive heart disease with heart failure; F15.11 Other stimulant abuse, in remission; G47.33 Obstructive sleep apnea (adult) (pediatric); Z87.01 Personal history of pneumonia (recurrent); E87.6 Hypokalemia; D69.59 Other secondary thrombocytopenia; E03.9 Hypothyroidism, unspecified; B19.20 Unspecified viral hepatitis C without hepatic coma; Z79.891 Long term (current) use of opiate analgesic; Z79.4 Long term (current) use of insulin; M48.062 Spinal stenosis, lumbar region with neurogenic claudication; G89.29 Other chronic pain
CPT/HCPCS: 36415; 36416; 36600; 51701; 51702; 70450; 71045; 74176; 76705; 76882; 80048; 80053; 80076; 80202; 80306; 80307; 81001; 82140; 82803; 82962; 83605; 83690; 83735; 84100; 84132; 84439; 84443; 84703; 85025; 87040; 87070; 87075; 87205; 87426; 92523; 92610; 93005; 96365; 96366; 96367; 96372; 96375; 99285; C9113; J0330; J0360; J1630; J1815; J2060; J2270; J2543; J2704; J3010; J3370; J3411; J3475; J3480; J3490; J7030; J7040